=== PATIENT | female | born 1960 | race Caucasian/White ===

== ENCOUNTER 2016-09-14 11:17 | Emergency (ER) | payer BC, OTHER ==
[2016-09-14] MEDS ORDERED: SODIUM CHLORIDE 0.9% 1,000 ML IV STA (11:24)
[2016-09-14 11:27] VITALS: TEMP 98.1
--- NOTE | 2016-09-14 11:29 | ED ---
General Adult HPI - General Stated complaint: ETOH Time Seen by Provider: 09/14/16 11:17 Source: RN notes reviewed - History of Present Illness Initial comments: This is a 56-year-old female presents to the emergency department intoxicated. Patient states THAT she is having trouble going to sleep so she drank NyQuil throughout the night she eventually drank a whole bottle. Patient states it was a new bottle. Patient states today she feeling a little different hard to describe her feelings but she doesn't feel right so she called the ambulance. Patient denies any drug use. Patient denies any injury or trauma. Patient denies headache patient denies numbness weakness. Patient denies chest pain difficulty breathing or shortness of breath. Patient denies any abdominal pain. Patient denies any nausea vomiting or diarrhea. - Related Data Home Medications Medication Instructions Recorded Confirmed No Known Home Medications [No 09/14/16 09/14/16 Known Home Medications] Allergies Allergy/AdvReac Type Severity Reaction Status Date / Time shellfish derived [Shellfish] Allergy Dyspnea Verified 09/14/16 11:27 Sulfa (Sulfonamide Allergy Rash/Hives Verified 09/14/16 11:27 Antibiotics) Review of Systems ROS Statement: Those systems with pertinent positive or pertinent negative responses have been documented in the HPI. ROS Other: All systems not noted in ROS Statement are negative. Past Medical History Additional Past Medical History / Comment(s): chronic back pain, alcoholism History of Any Multi-Drug Resistant Organisms: None Reported Additional Past Surgical History / Comment(s): oral surgery Past Psychological History: Anxiety Smoking Status: Current every day smoker Past Alcohol Use History: Abuse, Daily, Heavy Past Drug Use History: None Reported General Exam - General Exam Comments Initial Comments: GENERAL: Patient is well-developed and well-nourished. Patient is nontoxic and well- hydrated and is in no acute distress. Patient appears intoxicated ENT: Neck is soft and supple. No significant lymphadenopathy is noted. Oropharynx is clear. Moist mucous membranes. Neck has full range of motion without eliciting any pain. EYES: The sclera were anicteric and conjunctiva were pink and moist. Extraocular movements were intact and pupils were equal round and reactive to light. Eyelids were unremarkable. PULMONARY: Unlabored respirations. Good breath sounds bilaterally. No audible rales rhonchi or wheezing was noted. CARDIOVASCULAR: There is a regular rate and rhythm without any murmurs gallops or rubs. ABDOMEN: Soft and nontender with normal bowel sounds. No palpable organomegaly was noted. There is no palpable pulsatile mass. SKIN: Skin is clear with no lesions or rashes and otherwise unremarkable. NEUROLOGIC: Patient is alert and oriented x3. Cranial nerves II through XII are grossly intact. Motor and sensory are also intact. Normal speech, volume and content. Symmetrical smile. MUSCULOSKELETAL: Normal extremities with adequate strength and full range of motion. No lower extremity swelling or edema. No calf tenderness. LYMPHATICS: No significant lymphadenopathy is noted PSYCHIATRIC: Normal psychiatric evaluation. Course Vital Signs 09/14/16 09/14/16 09/14/16 11:19 12:46 13:46 Temperature 98.1 F Pulse Rate 83 74 56 L Respiratory 18 18 18 Rate Blood Pressure 165/95 142/81 137/70 O2 Sat by Pulse 95 97 100 Oximetry Medical Decision Making - Medical Decision Making EKG shows normal sinus rhythm at 71 bpm [place] interval is 132 QRS is 96 QT interval 384 QTC is 417 patient's EKG shows no ST segment elevation or depression or T-wave abnormality is noted. Patient states she drank a bottle of NyQuil and we calculated out the Tylenol level patient had at most 5200 mg which is about half of the toxic amount needed for the treatment with Mucomyst. Patient also states she took that over a period of hours from last evening to today. Patient insisted all she took was NyQuil from a bottle and denied taking any acetaminophen or Tylenol. - Lab Data Result diagrams: 09/14/16 11:30 09/14/16 11:30 Lab Results 09/14/16 09/14/16 Range/Units 11:30 11:30 WBC 6.8 (3.8-10.6) k/uL RBC 4.44 (3.80-5.40) m/uL Hgb 14.7 (11.4-16.0) gm/dL Hct 42.7 (34.0-46.0) % MCV 96.3 (80.0-100.0) fL MCH 33.2 (25.0-35.0) pg MCHC 34.5 (31.0-37.0) g/dL RDW 13.4 (11.5-15.5) % Plt Count 207 (150-450) k/uL Neutrophils % 45 % Lymphocytes % 45 % Monocytes % 3 % Eosinophils % 3 % Basophils % 1 % Neutrophils # 3.1 (1.3-7.7) k/uL Lymphocytes # 3.0 (1.0-4.8) k/uL Monocytes # 0.2 (0-1.0) k/uL Eosinophils # 0.2 (0-0.7) k/uL Basophils # 0.1 (0-0.2) k/uL Sodium 139 (137-145) mmol/L Potassium 3.9 (3.5-5.1) mmol/L Chloride 103 (98-107) mmol/L Carbon Dioxide 18 L (22-30) mmol/L Anion Gap 18 mmol/L BUN 6 L (7-17) mg/dL Creatinine 0.55 (0.52-1.04) mg/dL Est GFR (MDRD) Af Amer >60 (>60 ml/min/1.73 sqM) Est GFR (MDRD) Non-Af >60 (>60 ml/min/1.73 sqM) Glucose 82 (74-99) mg/dL Calcium 8.3 L (8.4-10.2) mg/dL Total Bilirubin 0.7 (0.2-1.3) mg/dL AST 33 (14-36) U/L ALT 35 (9-52) U/L Alkaline Phosphatase 54 (38-126) U/L Total Protein 7.4 (6.3-8.2) g/dL Albumin 4.5 (3.5-5.0) g/dL Salicylates <1.0 mg/dL Acetaminophen 54.0 H* ug/mL Serum Alcohol 121 mg/dL Disposition Clinical Impression: Accidental acetaminophen overdose, Alcohol intoxication Disposition: HOME SELF-CARE Condition: Good Instructions: Alcohol Intoxication (ED) Additional Instructions: Take [id number] medicines and prescribed medicines only as prescribed or directed Time of Disposition: 13:51
[2016-09-14 11:51] LABS: Basophils # (A) 0.1 k/uL (0-0.2); Basophils % (A) 1 %; CH 33.8; CHCM 35.2; Eosinophils # (A) 0.2 k/uL (0-0.7); Eosinophils % (A) 3 %; HCT 42.7 % (34.0-46.0); HDW 2.35; HGB 14.7 gm/dL (11.4-16.0); Luc # (Auto) 0.17; Luc % (Auto) 3; Lymphocytes % (A) 45 %; MCH 33.2 pg (25.0-35.0); MCHC 34.5 g/dL (31.0-37.0); MCV 96.3 fL (80.0-100.0); Mean Platelet Volume 6.7; Monocytes # (A) 0.2 k/uL (0-1.0); Monocytes % (A) 3 %; Neutrophils # (A) 3.1 k/uL (1.3-7.7); Neutrophils % (A) 45 %; RBC 4.44 m/uL (3.80-5.40); RDW 13.4 % (11.5-15.5); WBC 6.8 k/uL (3.8-10.6)
[2016-09-14 11:58] LABS: ALT 35 U/L (9-52); AST 33 U/L (14-36); Alkaline Phosphatase 54 U/L (38-126); Anion Gap 18 mmol/L; Blood Urea Nitrogen 6 mg/dL (7-17); Calcium 8.3 mg/dL (8.4-10.2); Carbon Dioxide 18 mmol/L (22-30); Chloride 103 mmol/L (98-107); Glucose 82 mg/dL (74-99); Non-African American GFR(MDRD) >60 (>60 ml/min/1.73 sqM); Potassium 3.9 mmol/L (3.5-5.1); Salicylate <1.0 mg/dL; Sodium 139 mmol/L (137-145); Total Bilirubin 0.7 mg/dL (0.2-1.3); Total Protein 7.4 g/dL (6.3-8.2)
[2016-09-14 12:12] LABS: Alcohol 121 mg/dL
[2016-09-14 14:28] VITALS: BP 163/87; PULSE 75; RESP 16
== END 2016-09-14 14:23 | disposition home or self-care (01) ==
LOC: SUPCPDRO 11:17 → EC 11:17
DX: F10.129 Alcohol abuse with intoxication, unspecified (principal); T39.1X1A Poisoning by 4-Aminophenol derivatives, accidental (unintentional), initial encounter; F17.200 Nicotine dependence, unspecified, uncomplicated; Y90.6 Blood alcohol level of 120-199 mg/100 ml; Z88.2 Allergy status to sulfonamides; Z91.013 Allergy to seafood
CPT/HCPCS: 36415; 80053; 80320; 83520; 85025; 93005; 99284

== ENCOUNTER 2017-11-04 00:04 | Inpatient (IN) | payer BC, OTHER ==
[2017-11-04 00:15] VITALS: RESP 18
[2017-11-04] MEDS ORDERED: LORazepam 2 MG/ML INJ IV STA (00:34)
[2017-11-04] MEDS ORDERED: SODIUM CHLORIDE 0.9% 1,000 ML IV STA ×2 (00:34)
[2017-11-04] MEDS ORDERED: ONDANSETRON 4 MG/2 ML VIAL IVP STA (00:35)
--- NOTE | 2017-11-04 01:05 | ED ---
General Adult HPI - General Chief complaint: Seizure Stated complaint: seizure Time Seen by Provider: 11/04/17 00:07 Source: EMS, RN notes reviewed, old records reviewed Mode of arrival: EMS Limitations: no limitations - History of Present Illness Initial comments: This is a 57-year-old female the ER for evaluation of fever. Patient seizure prolonged postictal period. Patient has history of alcohol abuse. Recently 3 days ago. Drinking. She states she does feel jittery and tremorous. She has not had a fever, has not felt diaphoretic no nausea or vomiting. No prior history of seizures. She does go to mild alcohol withdrawal. Patient has been a significant heavy drinker so her life. She has not been taking her medications to help. She is not feeling she is having any delusions or hallucinations - Related Data Home Medications Medication Instructions Recorded Confirmed Fexofenadine/Pseudoephedrine 1 tab PO DAILY 11/04/17 11/04/17 [Katarzyna-D 12 Hour Tablet] Previous Rx's Medication Instructions Recorded Ciprofloxacin HCl [Cipro] 250 mg PO Q12HR #14 tablet 11/04/17 Thiamine [Vitamin B-1] 100 mg PO BID@1200,1700 tab 11/04/17 Allergies Allergy/AdvReac Type Severity Reaction Status Date / Time shellfish derived [Shellfish] Allergy Dyspnea Verified 11/04/17 08:04 Sulfa (Sulfonamide Allergy Rash/Hives Verified 11/04/17 08:04 Antibiotics) Review of Systems ROS Statement: Those systems with pertinent positive or pertinent negative responses have been documented in the HPI. ROS Other: All systems not noted in ROS Statement are negative. Past Medical History Additional Past Medical History / Comment(s): chronic back pain, alcoholism History of Any Multi-Drug Resistant Organisms: None Reported Additional Past Surgical History / Comment(s): oral surgery, colonoscopy x 2 Past Psychological History: Anxiety Smoking Status: Current every day smoker Past Alcohol Use History: Abuse, Daily, Heavy Past Drug Use History: None Reported - Past Family History Mother Family Medical History: Cancer General Exam Limitations: no limitations General appearance: alert, in no apparent distress, anxious Head exam: Present: atraumatic, normocephalic, normal inspection Eye exam: Present: normal appearance, PERRL, EOMI. Absent: scleral icterus, conjunctival injection, periorbital swelling ENT exam: Present: normal exam, mucous membranes moist Neck exam: Present: normal inspection. Absent: tenderness, meningismus, lymphadenopathy Respiratory exam: Present: normal lung sounds bilaterally. Absent: respiratory distress, wheezes, rales, rhonchi, stridor Cardiovascular Exam: Present: regular rate, normal rhythm, normal heart sounds. Absent: systolic murmur, diastolic murmur, rubs, gallop, clicks GI/Abdominal exam: Present: soft, normal bowel sounds. Absent: distended, tenderness, guarding, rebound, rigid Extremities exam: Present: normal inspection, full ROM, normal capillary refill. Absent: tenderness, pedal edema, joint swelling, calf tenderness Back exam: Present: normal inspection Neurological exam: Present: alert, oriented X3, CN II-XII intact Psychiatric exam: Present: normal affect, normal mood Skin exam: Present: warm, dry, intact, normal color. Absent: rash Course Vital Signs 11/04/17 11/04/17 11/04/17 00:07 01:53 03:20 Temperature 98.4 F 99.7 F H Pulse Rate 94 76 78 Respiratory 18 18 18 Rate Blood Pressure 150/90 157/80 147/92 O2 Sat by Pulse 97 99 97 Oximetry 11/04/17 04:22 Temperature 98.2 F Pulse Rate 74 Respiratory 18 Rate Blood Pressure 147/82 O2 Sat by Pulse 97 Oximetry - Reevaluation(s) Reevaluation #1: Patient showing decompensation in mental status and tremors, no delusions but is unsteady on her feet unsteady gait. No recurrent seizure EKG Findings - EKG Comments: EKG Findings:: EKG shows normal sinus rhythm rate of 82, CA 1:30, QRS 90, QTc 495 Medical Decision Making - Medical Decision Making 57 female the ER for evaluation, positive seizure secondary to alcohol withdrawal DTs. Patient to be admitted for monitoring hemodynamically as well as seizure which all protocol - Lab Data Result diagrams: 11/04/17 01:05 11/04/17 01:05 Lab Results 11/04/17 11/04/17 11/04/17 Range/Units 01:05 01:05 01:05 WBC 7.4 (3.8-10.6) k/uL RBC 4.06 (3.80-5.40) m/uL Hgb 13.6 (11.4-16.0) gm/dL Hct 41.6 (34.0-46.0) % MCV 102.5 H (80.0-100.0) fL MCH 33.5 (25.0-35.0) pg MCHC 32.7 (31.0-37.0) g/dL RDW 12.4 (11.5-15.5) % Plt Count 70 L (150-450) k/uL Neutrophils % 79 % Lymphocytes % 14 % Monocytes % 6 % Eosinophils % 1 % Basophils % 0 % Neutrophils # 5.8 (1.3-7.7) k/uL Lymphocytes # 1.0 (1.0-4.8) k/uL Monocytes # 0.4 (0-1.0) k/uL Eosinophils # 0.1 (0-0.7) k/uL Basophils # 0.0 (0-0.2) k/uL Sodium 133 L (137-145) mmol/L Potassium 3.6 (3.5-5.1) mmol/L Chloride 96 L (98-107) mmol/L Carbon Dioxide 27 (22-30) mmol/L Anion Gap 10 mmol/L BUN 9 (7-17) mg/dL Creatinine 0.50 L (0.52-1.04) mg/dL Est GFR (MDRD) Af Amer >60 (>60 ml/min/1.73 sqM) Est GFR (MDRD) Non-Af >60 (>60 ml/min/1.73 sqM) Glucose 128 H (74-99) mg/dL Calcium 9.6 (8.4-10.2) mg/dL Magnesium 1.3 L (1.6-2.3) mg/dL Total Bilirubin 0.6 (0.2-1.3) mg/dL AST 199 H (14-36) U/L ALT 161 H (9-52) U/L Alkaline Phosphatase 60 (38-126) U/L Total Protein 6.8 (6.3-8.2) g/dL Albumin 4.1 (3.5-5.0) g/dL Urine Color Urine Appearance (Clear) Urine pH (5.0-8.0) Ur Specific [place] (1.001-1.035) Urine Protein (Negative) Urine Glucose (UA) (Negative) Urine Ketones (Negative) Urine Blood (Negative) Urine Nitrite (Negative) Urine Bilirubin (Negative) Urine Urobilinogen (<2.0) mg/dL Ur Leukocyte Esterase (Negative) Urine RBC (0-5) /hpf Urine WBC (0-5) /hpf Ur Squamous Epith Cells (0-4) /hpf Hyaline Casts (0-2) /lpf Urine Mucus (None) /hpf Salicylates 3.0 mg/dL Urine Opiates Screen (NotDetected) Ur Oxycodone Screen (NotDetected) Urine Methadone Screen (NotDetected) Ur Propoxyphene Screen (NotDetected) Acetaminophen <10.0 ug/mL Ur Barbiturates Screen (NotDetected) U Tricyclic Antidepress (NotDetected) Ur Phencyclidine Scrn (NotDetected) Ur Amphetamines Screen (NotDetected) U Methamphetamines Scrn (NotDetected) U Benzodiazepines Scrn (NotDetected) Urine Cocaine Screen (NotDetected) U Marijuana (THC) Screen (NotDetected) Serum Alcohol <10 mg/dL 11/04/17 Range/Units 03:04 WBC (3.8-10.6) k/uL RBC (3.80-5.40) m/uL Hgb (11.4-16.0) gm/dL Hct (34.0-46.0) % MCV (80.0-100.0) fL MCH (25.0-35.0) pg MCHC (31.0-37.0) g/dL RDW (11.5-15.5) % Plt Count (150-450) k/uL Neutrophils % % Lymphocytes % % Monocytes % % Eosinophils % % Basophils % % Neutrophils # (1.3-7.7) k/uL Lymphocytes # (1.0-4.8) k/uL Monocytes # (0-1.0) k/uL Eosinophils # (0-0.7) k/uL Basophils # (0-0.2) k/uL Sodium (137-145) mmol/L Potassium (3.5-5.1) mmol/L Chloride (98-107) mmol/L Carbon Dioxide (22-30) mmol/L Anion Gap mmol/L BUN (7-17) mg/dL Creatinine (0.52-1.04) mg/dL Est GFR (MDRD) Af Amer (>60 ml/min/1.73 sqM) Est GFR (MDRD) Non-Af (>60 ml/min/1.73 sqM) Glucose (74-99) mg/dL Calcium (8.4-10.2) mg/dL Magnesium (1.6-2.3) mg/dL Total Bilirubin (0.2-1.3) mg/dL AST (14-36) U/L ALT (9-52) U/L Alkaline Phosphatase (38-126) U/L Total Protein (6.3-8.2) g/dL Albumin (3.5-5.0) g/dL Urine Color Yellow Urine Appearance Cloudy H (Clear) Urine pH 6.5 (5.0-8.0) Ur Specific [place] 1.010 (1.001-1.035) Urine Protein 1+ H (Negative) Urine Glucose (UA) Negative (Negative) Urine Ketones Negative (Negative) Urine Blood Negative (Negative) Urine Nitrite Negative (Negative) Urine Bilirubin Negative (Negative) Urine Urobilinogen <2.0 (<2.0) mg/dL Ur Leukocyte Esterase Large H (Negative) Urine RBC 3 (0-5) /hpf Urine WBC 46 H (0-5) /hpf Ur Squamous Epith Cells 2 (0-4) /hpf Hyaline Casts 4 H (0-2) /lpf Urine Mucus Occasional H (None) /hpf Salicylates mg/dL Urine Opiates Screen Detected H (NotDetected) Ur Oxycodone Screen Not Detected (NotDetected) Urine Methadone Screen Not Detected (NotDetected) Ur Propoxyphene Screen Not Detected (NotDetected) Acetaminophen ug/mL Ur Barbiturates Screen Not Detected (NotDetected) U Tricyclic Antidepress Not Detected (NotDetected) Ur Phencyclidine Scrn Not Detected (NotDetected) Ur Amphetamines Screen Not Detected (NotDetected) U Methamphetamines Scrn Not Detected (NotDetected) U Benzodiazepines Scrn Detected H (NotDetected) Urine Cocaine Screen Not Detected (NotDetected) U Marijuana (THC) Screen Not Detected (NotDetected) Serum Alcohol mg/dL - Radiology Data Radiology results: report reviewed (CT brain negative for acute disease), image reviewed Disposition Clinical Impression: New onset seizure, Alcohol withdrawal, DTs (delirium tremens) Disposition: ADMITTED IP TO THIS HOSP Condition: Fair
[2017-11-04 01:22] LABS: Basophils % (A) 0 %; Eosinophils # (A) 0.1 k/uL (0-0.7); Eosinophils % (A) 1 %; HCT 41.6 % (34.0-46.0); HGB 13.6 gm/dL (11.4-16.0); Lymphocytes % (A) 14 %; MCH 33.5 pg (25.0-35.0); MCHC 32.7 g/dL (31.0-37.0); MCV 102.5 fL (80.0-100.0); Mean Platelet Volume 8.7; Monocytes # (A) 0.4 k/uL (0-1.0); Monocytes % (A) 6 %; Neutrophils # (A) 5.8 k/uL (1.3-7.7); Neutrophils % (A) 79 %; RBC 4.06 m/uL (3.80-5.40); RDW 12.4 % (11.5-15.5); WBC 7.4 k/uL (3.8-10.6)
[2017-11-04 01:37] LABS: ALT 161 U/L (9-52); AST 199 U/L (14-36); Acetaminophen <10.0 ug/mL; Albumin 4.1 g/dL (3.5-5.0); Alcohol <10 mg/dL; Alkaline Phosphatase 60 U/L (38-126); Anion Gap 10 mmol/L; Blood Urea Nitrogen 9 mg/dL (7-17); Calcium 9.6 mg/dL (8.4-10.2); Carbon Dioxide 27 mmol/L (22-30); Chloride 96 mmol/L (98-107); Glucose 128 mg/dL (74-99); Potassium 3.6 mmol/L (3.5-5.1); Sodium 133 mmol/L (137-145); Total Bilirubin 0.6 mg/dL (0.2-1.3); Total Protein 6.8 g/dL (6.3-8.2)
[2017-11-04] MEDS ORDERED: MORPHINE SULFATE 4 MG/ML SYRINGE IVP STA (01:37)
--- NOTE | 2017-11-04 01:40 | CT ---
EXAMINATION TYPE: CT brain wo con DATE OF EXAM: 11/04/2017 COMPARISON: 01/04/2016 HISTORY: SEIZURE, etoh CT DLP: 995.50 mGycm Automated exposure control for dose reduction was used. FINDINGS: Ventricles of normal size. There is no mass effect nor midline shift. There is no sign of intracrania l hemorrhage. The calvarium is intact. IMPRESSION: NEGATIVE CT SCAN OF THE BRAIN. NO ADVERSE CHANGE.
[2017-11-04 01:41] LABS: Platelet Count 70 k/uL (150-450)
[2017-11-04 03:24] LABS: Appearance,Urine Cloudy (Clear); Bilirubin,Urine Negative (Negative); Blood,Urine Negative (Negative); Color,Urine Yellow; Glucose,Urine (UA) Negative (Negative); Hyaline Casts,Urine 4 /lpf (0-2); Ketones,Urine Negative (Negative); Leukocyte Esterase,Urine Large (Negative); Mucus,Urine Occasional /hpf; Nitrite,Urine Negative (Negative); PH, Urine 6.5 (5.0-8.0); Protein,Urine 1+ (Negative); RBC,Urine 3 /hpf (0-5); Squamous Epithelial Cell,Urine 2 /hpf (0-4); Urobilinogen,Urine <2.0 mg/dL (<2.0); WBC,Urine 46 /hpf (0-5)
[2017-11-04 03:57] LABS: Amphetamine Screen,Urine Not Detected (NotDetected); Barbiturate Screen,Urine Not Detected (NotDetected); Benzodiazepines Screen,Urine Detected (NotDetected); Cocaine Screen,Urine Not Detected (NotDetected); Methadone Screen, Urine Not Detected (NotDetected); Opiate Screen,Urine Detected (NotDetected); Oxycodone Screen, Urine Not Detected (NotDetected); Phencyclidine Screen,Urine Not Detected (NotDetected); Tricyclic Antidepressant,Urine Not Detected (NotDetected); Urn Cannabinoid Scrn Not Detected (NotDetected)
[2017-11-04] MEDS ORDERED: MAGNESIUM OXIDE 400 MG TAB PO STA (03:57)
[2017-11-04] MEDS ORDERED: cefTRIAXone IN SWFI 1,000 MG/10 ML SYRINGE IVP STA (03:57)
[2017-11-04] MEDS ORDERED: SODIUM CHLORIDE 0.9% 1,000 ML IV ONE (03:58)
[2017-11-04] MEDS ORDERED: DIAZEPAM 5 MG/ML 2 ML INJ IVP STA (03:58)
[2017-11-04] MEDS ORDERED: LORazepam 2 MG/ML INJ IV PRN ×3 (03:58)
[2017-11-04] MEDS ORDERED: THIAMINE 100 MG/ML 2 ML VIAL IM STA (03:58)
[2017-11-04] MEDS: MAGNESIUM SULFATE-D5W PMX 1 GM in DEXTROSE/WATER 1 100ML.BAG IVPB SCH ×2 (04:26→05:44)
[2017-11-04 07:26] VITALS: BP 134/76; PULSE 80; TEMP 99.4
[2017-11-04] MEDS ORDERED: ENOXAPARIN 40 MG/0.4 ML SYRINGE SQ SCH (09:00)
[2017-11-04] MEDS ORDERED: THIAMINE 100 MG TAB PO SCH (17:00)
--- NOTE | 2017-11-04 20:09 | HP ---
HISTORY AND PHYSICAL DATE OF SERVICE: 11/04/2017. CHIEF COMPLAINT: Possible seizures. BRIEF HISTORY: Patient is a 57-year-old female patient with history of alcohol abuse, presented to the ED with a complaint of fever and seizures. Patient claims that her last drink was about 6 days ago. But the day of admission, she became very jittery and tremulous and she does not have any history of seizure disorder and claims that according to her she was violently shaking, so he decided to bring her to the ER for detoxification. PAST MEDICAL HISTORY: Significant for chronic back pain and alcoholism. History of anxiety and tobacco abuse. PAST SURGICAL HISTORY: Significant for history of oral surgery, colonoscopy. PAST SOCIAL HISTORY: Patient has a long-standing history of daily heavy smoking and no IV drug abuse. FAMILY HISTORY: Unremarkable for coronary artery disease or CHF or diabetes. MEDICATIONS: The patient is not taking any medications at home. ALLERGIES: SHE IS ALLERGIC TO SHELLFISH, SULFA DRUGS. REVIEW OF SYSTEMS: Patient has no fever or chills. HEENT: No hearing or vision loss. Respiratory: No cough or chest congestion. Cardiovascular: No chest pain or palpitations. Abdomen/GI no nausea, vomiting, diarrhea. Genitourinary: No hematuria. No dysuria. Extremities: No swelling or redness of either extremities. Central nervous system: Seizures as per HPI. Skin is warm, no rashes or pigmentation. Hematological: No bleeding or coagulation disorders. Lymphatics: No lymph nodes are palpable. Hematological disorders: No polyuria or polydipsia. PHYSICAL EXAMINATION: Patient is resting comfortably in bed. She is in no acute distress. She is awake, alert, oriented x3. VITAL SIGNS: Temperature of 98.4, pulse 94, respiration 18, blood pressure 150/90, O2 saturation 97%. In general, patient is well developed, well nourished. HEENT: Atraumatic, normocephalic. Pupils equal and reactive to light. Extraocular movements intact. Buccal mucosa is fair. NECK: Supple. No goiter, lymphadenopathy. JVD is negative. No carotid bruit heard. Respiratory examination: Lungs are clear to auscultate. No rales, rhonchi, or wheezes. Cardiovascular examination: Heart is regular rate and rhythm without any murmurs, gallop rhythm. ABDOMEN/GI. Abdomen soft, nontender, nondistended. Bowel sounds positive. EXTREMITIES: No edema clubbing, cyanosis. Pulses are palpable. Neurological examination: Patient is awake, alert, oriented x3. Cranial nerves 2-12 grossly intact. PSYCHIATRIC EXAMINATION: The patient has normal affect and mood. Skin examination: Skin is warm, dry and intact. No rashes or pigmentation. LAB: CBC white blood count 7.4, hemoglobin 13.6, hematocrit 41.6, and platelet count of 70. Chemical profile: Sodium 138, potassium 3.6, chloride 96, bicarb 27, BUN 9, creatinine 0.5, glucose 128. EKG shows normal sinus rhythm. CT of the head was negative. The patient urine drug screen was positive for opiates and benzodiazepines. ASSESSMENT: 1. New onset seizures secondary to alcohol withdrawal. 2. Alcohol abuse with alcohol withdrawal. 3. Hyponatremia. 4. Polysubstance abuse. 5. Transaminitis secondary to ETOH abuse. 6. Tobacco abuse. PLAN: Admit the patient for observation. Start on IV fluids with banana bag and thiamine, folic acid. Monitor for the patient's seizure precautions. Start on CIWA protocol. Consult Learning Coordinator for outpatient resources. Further recommendations once patient is more stable. MMODL / IJN: [id number] /
[2017-11-05] MEDS ORDERED: cefTRIAXone IN SWFI 1,000 MG/10 ML SYRINGE IVP SCH (06:00)
--- NOTE | 2017-11-27 23:06 | DS ---
DISCHARGE SUMMARY ADMISSION DIAGNOSES: 1. New onset seizures, possibly secondary to alcohol withdrawal. 2. Alcohol abuse with withdrawal. 3. Hyponatremia. 4. Polysubstance abuse. 5. Transaminitis secondary to a ETOH abuse. 6. Tobacco abuse. BRIEF HISTORY: This was a 57-year-old female patient with alcohol abuse, presents to the ED with complaint of fever and seizure. The patient claims that her last drink was about 6 days ago, but on the day of admission, she became very jittery and tremulous and her decided to bring her to the ED. She has a history of chronic back pain and alcoholism. BRIEF HOSPITAL COURSE: The patient was admitted to observation, started on IV fluids with banana bag, thiamine and folic acid. The patient was put on seizure precautions. She was given CIWA protocol. Social service consult was done for outpatient resources. Once the patient was stable, the patient did respond very well to this treatment. She did not have any symptoms of withdrawal. She was awake and alert and all the workup was negative. Her CT of the head was negative for any bleed or any adverse changes. She did not have any complications. She was then discharged home with a plan to continue with current medications and followup with primary care physician. EXAMINATION: At discharge vital signs, temperature 99.2, pulse 98, respirations 18, blood pressure 101/86. HEENT: Atraumatic, normocephalic. Pupils equal and reactive to light. Extraocular movements intact. Buccal mucosa fair. NECK: Supple. No goiter or lymphadenopathy. JVD is negative. No carotid bruit heard. LUNGS: Clear to auscultate. No rales, rhonchi, or wheezes. HEART: Heart is regular rate and rhythm without any murmurs gallop rhythm. ABDOMEN: Soft, nontender. Bowel sounds positive. EXTREMITIES: No edema, clubbing cyanosis. DISCHARGE DIAGNOSES: 1. Seizures possibly secondary to alcohol withdrawal number. 2. Urinary tract infection. 3. Chronic alcohol abuse with possible withdrawal. DISCHARGE MEDICATIONS: 1. Cipro 250 mg every12 hours for 7 days. 2. Thiamine 100 mg daily. 3. Folic acid 1 mg daily. 4. Katarzyna D 1 tablet every 12 hours. The patient had detailed counseling done on cessation of drinking and tobacco. She remains stable, did not have any further complications. She was then discharged home in a stable condition. MMODL / IJN: [id number] /
== END 2017-11-04 15:01 | disposition home or self-care (01) | DRG 897 ==
LOC: EC 00:04 → 4MS4W 03:58
PROVIDERS: ADMIT Hospitalist; ATTEND Hospitalist
DX: F10.231 Alcohol dependence with withdrawal delirium (principal); R56.9 Unspecified convulsions; E87.1 Hypo-osmolality and hyponatremia; Y90.0 Blood alcohol level of less than 20 mg/100 ml; F17.200 Nicotine dependence, unspecified, uncomplicated; G89.29 Other chronic pain; F41.9 Anxiety disorder, unspecified; M54.9 Dorsalgia, unspecified; Z79.899 Other long term (current) drug therapy; Z91.013 Allergy to seafood; Z80.9 Family history of malignant neoplasm, unspecified; Z88.2 Allergy status to sulfonamides
CPT/HCPCS: 36415; 70450; 80053; 80306; 80320; 81001; 83520; 83735; 85025; 93005; 96361; 96372; 96374; 96375; 99285

== ENCOUNTER 2018-01-17 20:20 | Emergency (ER) | payer BC, OTHER ==
[2018-01-17] MEDS ORDERED: SODIUM CHLORIDE 0.9% 1,000 ML IV STA (21:01)
[2018-01-17] MEDS ORDERED: ONDANSETRON 4 MG/2 ML VIAL IVP STA (21:01)
[2018-01-17] MEDS ORDERED: DICYCLOMINE 20 MG TAB PO STA (21:03)
--- NOTE | 2018-01-17 21:16 | ED ---
GI Bleed HPI - General Chief complaint: GI Bleed Stated complaint: diarrhea/rectal bleeding Time Seen by Provider: 01/17/18 20:30 Source: patient, family, RN notes reviewed, old records reviewed Mode of arrival: ambulatory Limitations: no limitations - History of Present Illness Initial comments: 57-year-old female presents with chief complaint of multiple weeks of diarrhea. Over the past 3 days she's were she's had bloody stools or clots. Patient states this time related just hemorrhoids. She reports that when she does have pain is cramping and she is doubled over in pain. She states she's had no antibiotics. No history of sick contacts that she is aware. No travel history. No fever or chills. She rates her pain a 2 out of 10 at this time. But she reports that occasionally sharp and severe. Patient does have a history of severe alcoholism. - Related Data Home Medications Medication Instructions Recorded Confirmed Calcium Carbonate [Calcium] 600 mg PO DAILY 01/17/18 01/17/18 Magnesium(Unknown) 1 tab PO DAILY 01/17/18 01/17/18 Multivitamin with Iron 1 tab PO DAILY 01/17/18 01/17/18 [Multivitamins with Iron] Vitamin B Complex 1 cap PO DAILY 01/17/18 01/17/18 Vitamin D3(Unknown) 1 tab PO DAILY 01/17/18 01/17/18 Previous Rx's Medication Instructions Recorded Ciprofloxacin HCl [Cipro] 500 mg PO Q12HR 5 Days 01/18/18 Dicyclomine [Bentyl] 10 mg PO TID #20 capsule 01/18/18 Nystatin 100,000 Unit/gm Powd 1 applic TOPICAL BID #1 bottle 01/18/18 [Mycostatin Powder] Allergies Allergy/AdvReac Type Severity Reaction Status Date / Time shellfish derived [Shellfish] Allergy Dyspnea Verified 01/17/18 20:44 Sulfa (Sulfonamide Allergy Rash/Hives Verified 01/17/18 20:44 Antibiotics) Review of Systems ROS Statement: Those systems with pertinent positive or pertinent negative responses have been documented in the HPI. ROS Other: All systems not noted in ROS Statement are negative. Past Medical History Additional Past Medical History / Comment(s): chronic back pain, alcoholism History of Any Multi-Drug Resistant Organisms: None Reported Additional Past Surgical History / Comment(s): oral surgery, colonoscopy x 2 Past Anesthesia/Blood Transfusion Reactions: No Reported Reaction Past Psychological History: Anxiety Smoking Status: Current every day smoker Past Alcohol Use History: Abuse, Daily, Heavy Past Drug Use History: None Reported - Past Family History Mother Family Medical History: Cancer General Exam - General Exam Comments Initial Comments: 57-year-old female. Alert. No distress. Limitations: no limitations General appearance: alert, in no apparent distress Head exam: Present: atraumatic, normocephalic, normal inspection Eye exam: Present: normal appearance, PERRL, EOMI. Absent: scleral icterus, conjunctival injection, periorbital swelling ENT exam: Present: normal exam, mucous membranes moist Neck exam: Present: normal inspection. Absent: tenderness, meningismus, lymphadenopathy Respiratory exam: Present: normal lung sounds bilaterally. Absent: respiratory distress, wheezes, rales, rhonchi, stridor Cardiovascular Exam: Present: regular rate, normal rhythm, normal heart sounds. Absent: systolic murmur, diastolic murmur, rubs, gallop, clicks GI/Abdominal exam: Present: soft, normal bowel sounds. Absent: distended, tenderness, guarding, rebound, rigid Rectal exam: Present: normal rectal tone, heme (-) stool. Absent: normal inspection (diarrhea noted, and patient has raw and irritated skin around rectum. ) Extremities exam: Present: normal inspection, full ROM, normal capillary refill. Absent: tenderness, pedal edema, joint swelling, calf tenderness Back exam: Present: normal inspection Neurological exam: Present: alert, oriented X3, CN II-XII intact Psychiatric exam: Present: normal affect, normal mood Skin exam: Present: warm, dry, intact, normal color. Absent: rash Course Vital Signs 01/17/18 01/17/18 01/17/18 20:32 21:55 22:00 Temperature 97.8 F Pulse Rate 77 65 66 Respiratory 18 16 16 Rate Blood Pressure 123/83 115/67 94/51 O2 Sat by Pulse 96 97 100 Oximetry 01/17/18 01/18/18 01/18/18 23:00 00:30 01:10 Temperature 97.2 F L Pulse Rate 66 62 78 Respiratory 16 16 Rate Blood Pressure 96/51 115/70 129/69 O2 Sat by Pulse 100 98 100 Oximetry Medical Decision Making - Medical Decision Making Did you get your female presents with multiple weeks of diarrhea. And uncontrollable. She say said keeps her up at night. She is wearing depends. She does report she had some bloody stool the past three days. At this time fecal occult is negative. Given IV fluids and lab work obtain. White count is normal. Chemistry panels with a normal limits. She has no significant pain at this time. Discussed possibility of infectious causes for diarrhea. Will start the patient on Cipro for 5 days. We did get a stool culture. Patient C diff test is negative. Patient will be following up with primary care provider. Also will discharge her with bentyl. Discussed ETOH can be related to diarreha as well. - Lab Data Result diagrams: 01/17/18 21:01 01/17/18 21:01 Lab Results 01/17/18 01/17/18 01/17/18 Range/Units 21:01 21:01 21:01 WBC (3.8-10.6) k/uL RBC (3.80-5.40) m/uL Hgb (11.4-16.0) gm/dL Hct (34.0-46.0) % MCV (80.0-100.0) fL MCH (25.0-35.0) pg MCHC (31.0-37.0) g/dL RDW (11.5-15.5) % Plt Count (150-450) k/uL Neutrophils % % Lymphocytes % % Monocytes % % Eosinophils % % Basophils % % Neutrophils # (1.3-7.7) k/uL Lymphocytes # (1.0-4.8) k/uL Monocytes # (0-1.0) k/uL Eosinophils # (0-0.7) k/uL Basophils # (0-0.2) k/uL PT (9.0-12.0) sec INR (<1.2) APTT (22.0-30.0) sec Sodium 142 (137-145) mmol/L Potassium 4.2 (3.5-5.1) mmol/L Chloride 105 (98-107) mmol/L Carbon Dioxide 20 L (22-30) mmol/L Anion Gap 17 mmol/L BUN 4 L (7-17) mg/dL Creatinine 0.50 L (0.52-1.04) mg/dL Est GFR (CKD-EPI)AfAm >90 (>60 ml/min/1.73 sqM) Est GFR (CKD-EPI)NonAf >90 (>60 ml/min/1.73 sqM) Glucose 91 (74-99) mg/dL Plasma Lactic Acid Samuel 1.7 (0.7-2.0) mmol/L Calcium 9.5 (8.4-10.2) mg/dL Magnesium 1.8 (1.6-2.3) mg/dL Total Bilirubin 0.3 (0.2-1.3) mg/dL AST 36 (14-36) U/L ALT 21 (9-52) U/L Alkaline Phosphatase 55 (38-126) U/L Total Protein 7.2 (6.3-8.2) g/dL Albumin 4.6 (3.5-5.0) g/dL Amylase 54 (30-110) U/L Lipase 68 (23-300) U/L Stool Occult Blood (Negative) C. difficile (EIA) Intrp (Negative) Blood Type A Negative Blood Type Confirm Blood Type Recheck CABO Indicated Antibody Screen NEGATIVE Spec Expiration Date 01/20/2018230001/17/18 01/17/18 01/17/18 Range/Units 21:01 21:01 21:08 WBC 8.5 (3.8-10.6) k/uL RBC 4.64 (3.80-5.40) m/uL Hgb 15.0 (11.4-16.0) gm/dL Hct 43.9 (34.0-46.0) % MCV 94.6 (80.0-100.0) fL MCH 32.4 (25.0-35.0) pg MCHC 34.2 (31.0-37.0) g/dL RDW 13.2 (11.5-15.5) % Plt Count 238 (150-450) k/uL Neutrophils % 63 % Lymphocytes % 29 % Monocytes % 4 % Eosinophils % 2 % Basophils % 1 % Neutrophils # 5.3 (1.3-7.7) k/uL Lymphocytes # 2.5 (1.0-4.8) k/uL Monocytes # 0.4 (0-1.0) k/uL Eosinophils # 0.1 (0-0.7) k/uL Basophils # 0.1 (0-0.2) k/uL PT 11.0 (9.0-12.0) sec INR 1.1 (<1.2) APTT 25.6 (22.0-30.0) sec Sodium (137-145) mmol/L Potassium (3.5-5.1) mmol/L Chloride (98-107) mmol/L Carbon Dioxide (22-30) mmol/L Anion Gap mmol/L BUN (7-17) mg/dL Creatinine (0.52-1.04) mg/dL Est GFR (CKD-EPI)AfAm (>60 ml/min/1.73 sqM) Est GFR (CKD-EPI)NonAf (>60 ml/min/1.73 sqM) Glucose (74-99) mg/dL Plasma Lactic Acid Samuel (0.7-2.0) mmol/L Calcium (8.4-10.2) mg/dL Magnesium (1.6-2.3) mg/dL Total Bilirubin (0.2-1.3) mg/dL AST (14-36) U/L ALT (9-52) U/L Alkaline Phosphatase (38-126) U/L Total Protein (6.3-8.2) g/dL Albumin (3.5-5.0) g/dL Amylase (30-110) U/L Lipase (23-300) U/L Stool Occult Blood Negative (Negative) C. difficile (EIA) Intrp (Negative) Blood Type Blood Type Confirm Blood Type Recheck Antibody Screen Spec Expiration Date 01/17/18 01/17/18 Range/Units 22:15 23:46 WBC (3.8-10.6) k/uL RBC (3.80-5.40) m/uL Hgb (11.4-16.0) gm/dL Hct (34.0-46.0) % MCV (80.0-100.0) fL MCH (25.0-35.0) pg MCHC (31.0-37.0) g/dL RDW (11.5-15.5) % Plt Count (150-450) k/uL Neutrophils % % Lymphocytes % % Monocytes % % Eosinophils % % Basophils % % Neutrophils # (1.3-7.7) k/uL Lymphocytes # (1.0-4.8) k/uL Monocytes # (0-1.0) k/uL Eosinophils # (0-0.7) k/uL Basophils # (0-0.2) k/uL PT (9.0-12.0) sec INR (<1.2) APTT (22.0-30.0) sec Sodium (137-145) mmol/L Potassium (3.5-5.1) mmol/L Chloride (98-107) mmol/L Carbon Dioxide (22-30) mmol/L Anion Gap mmol/L BUN (7-17) mg/dL Creatinine (0.52-1.04) mg/dL Est GFR (CKD-EPI)AfAm (>60 ml/min/1.73 sqM) Est GFR (CKD-EPI)NonAf (>60 ml/min/1.73 sqM) Glucose (74-99) mg/dL Plasma Lactic Acid Samuel (0.7-2.0) mmol/L Calcium (8.4-10.2) mg/dL Magnesium (1.6-2.3) mg/dL Total Bilirubin (0.2-1.3) mg/dL AST (14-36) U/L ALT (9-52) U/L Alkaline Phosphatase (38-126) U/L Total Protein (6.3-8.2) g/dL Albumin (3.5-5.0) g/dL Amylase (30-110) U/L Lipase (23-300) U/L Stool Occult Blood (Negative) C. difficile (EIA) Intrp Negative (Negative) Blood Type Blood Type Confirm A Negative Blood Type Recheck Antibody Screen Spec Expiration Date - Radiology Data Radiology results: report reviewed KUB shows normal Bowel magali pattern. Disposition Clinical Impression: Diarrhea Disposition: HOME SELF-CARE Condition: Good Instructions: Acute Diarrhea (ED) Additional Instructions: Patient is to follow-up with primary care provider in the next 1-2 days. Return to emergency department if any alarming signs or symptoms occur. Prescriptions: Ciprofloxacin HCl [Cipro] 500 mg PO Q12HR 5 Days Dicyclomine [Bentyl] 10 mg PO TID #20 capsule Nystatin 100,000 Unit/gm Powd [Mycostatin Powder] 1 applic TOPICAL BID #1 bottle Is patient prescribed a controlled substance at d/c from ED?: No If prescribed controlled substance>3 days was MAPS reviewed?: No When asked, does pt state using other controlled substances?: No Referrals: Danny Ogden DO [Primary Care Provider] - 1-2 days Time of Disposition: 00:37
[2018-01-17 21:29] LABS: Basophils # (A) 0.1 k/uL (0-0.2); Basophils % (A) 1 %; Eosinophils # (A) 0.1 k/uL (0-0.7); Eosinophils % (A) 2 %; HCT 43.9 % (34.0-46.0); Lymphocytes # (A) 2.5 k/uL (1.0-4.8); Lymphocytes % (A) 29 %; MCH 32.4 pg (25.0-35.0); MCHC 34.2 g/dL (31.0-37.0); MCV 94.6 fL (80.0-100.0); Mean Platelet Volume 6.9; Monocytes # (A) 0.4 k/uL (0-1.0); Monocytes % (A) 4 %; Neutrophils # (A) 5.3 k/uL (1.3-7.7); Neutrophils % (A) 63 %; Platelet Count 238 k/uL (150-450); RBC 4.64 m/uL (3.80-5.40); RDW 13.2 % (11.5-15.5); WBC 8.5 k/uL (3.8-10.6)
[2018-01-17 21:38] LABS: INR 1.1 (<1.2); Partial Thromboplastin Time 25.6 sec (22.0-30.0)
[2018-01-17 21:48] LABS: ALT 21 U/L (9-52); AST 36 U/L (14-36); Albumin 4.6 g/dL (3.5-5.0); Alkaline Phosphatase 55 U/L (38-126); Amylase 54 U/L (30-110); Anion Gap 17 mmol/L; Blood Urea Nitrogen 4 mg/dL (7-17); Calcium 9.5 mg/dL (8.4-10.2); Carbon Dioxide 20 mmol/L (22-30); Chloride 105 mmol/L (98-107); Glucose 91 mg/dL (74-99); Lipase 68 U/L (23-300); Magnesium 1.8 mg/dL (1.6-2.3); Potassium 4.2 mmol/L (3.5-5.1); Sodium 142 mmol/L (137-145); Total Bilirubin 0.3 mg/dL (0.2-1.3); Total Protein 7.2 g/dL (6.3-8.2)
[2018-01-17 21:57] VITALS: RESP 16
--- NOTE | 2018-01-17 23:54 | XR ---
EXAMINATION TYPE: XR KUB DATE OF EXAM: 01/17/2018 COMPARISON: 07/18/2012 HISTORY: Abdominal pain TECHNIQUE: 2 views FINDINGS: Bowel gas pattern is normal. There is no sign of intestinal obstruction or pneumoperitoneum . Fecal pattern is normal. Lung bases are clear. There are no pathologic calcifications. IMPRESSION: Nonacute abdomen. No change.
[2018-01-18] MEDS ORDERED: SODIUM CHLORIDE 0.9% 1,000 ML IV ONE ×2 (00:06→00:17)
[2018-01-18 01:14] VITALS: BP 129/69; PULSE 78; TEMP 97.2
== END 2018-01-18 01:16 | disposition home or self-care (01) ==
LOC: EC 20:20
DX: R19.7 Diarrhea, unspecified (principal); F17.200 Nicotine dependence, unspecified, uncomplicated; Z79.899 Other long term (current) drug therapy; Z91.013 Allergy to seafood; Z88.2 Allergy status to sulfonamides
CPT/HCPCS: 99285; 96374; 96361; 36415; 86900; 86901; 80053; 82150; 83605; 83690; 83735; 85025; 85610; 85730; 86850; 82272; 87324; 87045; 87046; 74018; J2405

== ENCOUNTER → 2018-11-10 | Outpatient (CLI) | payer BC, OTHER ==
[2018-11-10 11:22] LABS: HCT 42.5 % (34.0-46.0); HGB 14.4 gm/dL (11.4-16.0); MCH 31.7 pg (25.0-35.0); MCHC 33.9 g/dL (31.0-37.0); MCV 93.7 fL (80.0-100.0); Mean Platelet Volume 8.1; Platelet Count 177 k/uL (150-450); RBC 4.54 m/uL (3.80-5.40); RDW 12.7 % (11.5-15.5); WBC 7.7 k/uL (3.8-10.6)
[2018-11-10 11:27] LABS: Appearance,Urine Clear (Clear); Bilirubin,Urine Negative (Negative); Blood,Urine Negative (Negative); Color,Urine Light Yellow; Glucose,Urine (UA) Negative (Negative); Ketones,Urine Negative (Negative); Leukocyte Esterase,Urine Trace (Negative); Nitrite,Urine Negative (Negative); Protein,Urine Negative (Negative); RBC,Urine 1 /hpf (0-5); Specific Gravity,Urine 1.013 (1.001-1.035); Squamous Epithelial Cell,Urine 1 /hpf (0-4); Urobilinogen,Urine <2.0 mg/dL (<2.0); WBC,Urine 1 /hpf (0-5)
[2018-11-10 11:29] LABS: ALT 36 U/L (9-52); AST 30 U/L (14-36); Albumin 4.2 g/dL (3.5-5.0); Alkaline Phosphatase 51 U/L (38-126); Anion Gap 7 mmol/L; Blood Urea Nitrogen 18 mg/dL (7-17); Calcium 9.3 mg/dL (8.4-10.2); Carbon Dioxide 27 mmol/L (22-30); Chloride 105 mmol/L (98-107); Cholesterol 186 mg/dL (<200); Glucose 94 mg/dL (74-99); HDL Cholesterol 56 mg/dL (40-60); LDL Cholesterol,Calculated 118 mg/dL (0-99); Magnesium 1.5 mg/dL (1.6-2.3); Sodium 139 mmol/L (137-145); Total Bilirubin 0.4 mg/dL (0.2-1.3); Total Protein 6.9 g/dL (6.3-8.2); Triglycerides 60 mg/dL (<150)
--- NOTE | 2018-11-10 21:13 | BD ---
EXAMINATION TYPE: Axial Bone Density DATE OF EXAM: 11/10/2018 COMPARISON: 09.15.2010 CLINICAL HISTORY: 58 YR OLD FEMALE....ICD-10 CODE: Z13.820 OSTEOPOROSIS SCREENING Height: 68 Weight: 175 FRAX RISK QUESTIONS: History of Fracture in Adulthood: YES Secondary Osteoporosis: YES 2. Hyperthyroidism: YES, A TEEN 3. Menopause before 45: AT 46 4Current Tobacco Use: YES RISK FACTORS HISTORY OF: HX OF FX TO TIB FIB > 50 YRS OLD, Family History of Osteoporosis: MOTHERS SIDE, Active: YES Postmenopausal woman: 46 NATURAL Lost more than 2 inches in height since high school: NOT QUITE MEDICATIONS: Additional Medications: VIT D AND CALCIUM, MULTIVITAMIN Additional History: NOTHING ADDITIONAL TO NOTE EXAM MEASUREMENTS: Bone mineral densitometry was performed using the [employer] Software System. Bone mineral density as measured about the Lumbar spine is: ----- L1-L4(G/cm2): 1.474 T Score Values are as follows: ----- L1: 2.0 ----- L2: 1.0 ----- L3: 3.2 ----- L4: 3.1 ----- L1-L4: 2.5 Bone mineral density has: Increased 2.9% SINCE...09.15.2010 Bone mineral density about the R hip (g/cm2): 1.055 Bone mineral density about the L hip (g/cm2): 1.051 T Score values are as follows: -----R Neck: -0.1 -----L Neck: -0.3 -----R Total: 0.4 -----L Total: 0.3 Bone mineral density has: Decreased -5.8% SINCE...09.15.2010 FRAX%s: THERE IS A 10.0% CHANCE FOR A MAJOR OSTEOPOROTIC FX AND A 0.5% FOR HIP FX....PROBABILITY O F FX IN 10 YRS TIME IMPRESSION: Normal (Values between +1 and -1 indicate normal bone mass). Consider repeating this study in 5 year s or sooner if there is some new clinical indication. NOTE: T-SCORE=SD OF THE YOUNG ADULT MEAN.
[2018-11-10 22:01] LABS: Hemoglobin A1C 5.4 % (4.0-6.0)
--- NOTE | 2018-11-13 09:33 | MM ---
Reason for exam: screening (asymptomatic). Last mammogram was performed 2 years and 9 months ago. History: Patient is postmenopausal and had first child at age 37. Family history of breast cancer in maternal aunt at age 60. Took hormonal contraceptives for 2 years. Physical Findings: A clinical breast exam by your physician is recommended on an annual basis and results should be correlated with mammographic findings. MG Screening Mammo w CAD Bilateral CC and MLO view(s) were taken. Prior study comparison: January 30, 2016, bilateral MG screening mammo w CAD. January 01, 2014, bilateral digital screening mammo w/CAD. The breast tissue is extremely dense which could obscure a lesion on mammography. Benign appearing bilateral calcifications. No suspicious abnormality. No significant changes when compared with prior studies. ASSESSMENT: Benign, BI-RAD 2 RECOMMENDATION: Routine screening mammogram of both breasts in 1 year.
== END | disposition home or self-care (01) ==
LOC: RADMAMWWP 09:42
PROVIDERS: ATTEND Family Medicine
DX: Z12.31 Encounter for screening mammogram for malignant neoplasm of breast (principal); Z13.820 Encounter for screening for osteoporosis; Z00.00 Encounter for general adult medical examination without abnormal findings; E66.3 Overweight
CPT/HCPCS: 77067; 77080; 80053; 80061; 81001; 82306; 83036; 83735; 84443; 85027

== ENCOUNTER 2018-12-20 08:46 | Day surgery (SDC) | payer BC, OTHER ==
[2018-12-19 11:08] VITALS: BMI 23.6
[~2018-12-20 08:46] MED LIST: LACTATED RINGERS 1,000 ML IV SCH; LIDOCAINE 1% 20 ML VIAL (10MG/ML) FOR IV START INTRADERMA PRN
[2018-12-20 09:07] VITALS: RESP 16; TEMP 98
[2018-12-20] MEDS ORDERED: PROPOFOL 10 MG/ML 20 ML VIAL IV ONE (09:45)
[2018-12-20] MEDS ORDERED: LIDOCAINE 1% INJ 10MG/ML (20 ML MDV) ONE (09:45)
--- NOTE | 2018-12-20 10:03 | P.PCN ---
Date of Procedure: 12/20/18 Procedure(s) Performed: BRIEF HISTORY: Patient is a 58-year-old pleasant female, scheduled for an elective colonoscopy as a part of value should of prior history of colon polyps. Last colonoscopy was 5 years ago. PROCEDURE PERFORMED: Colonoscopy. PREOPERATIVE DIAGNOSIS: History of colon polyps. IV sedation per Anesthesia. PROCEDURE: After informed consent was obtained, the patient, was brought into the endoscopy unit. IV sedation was administered by Anesthesia under continuous monitoring. Digital rectal examination was normal. Initially the Olympus CF-160 flexible video colonoscope was then inserted in the rectum, gradually advanced into the cecum without any difficulty. Careful examination was performed as the scope was gradually being withdrawn. Ileocecal valve and the appendiceal orifice were visualized and appeared normal. Prep was excellent. Mucosa of the cecum, ascending colon, transverse colon, descending colon, sigmoid colon, and rectum appeared normal. Retroflexion was performed in the rectum and no lesions were seen. The patient tolerated the procedure well. IMPRESSION: Normal-appearing colon from rectum to cecum with no evidence of colorectal neoplasia. RECOMMENDATIONS: Findings of this examination were discussed with the patient as well as her family. She was advised to have a repeat surveillance colonoscopy in 5 years from now because of the prior history of colon polyps.
[2018-12-20 10:19] VITALS: BP 118/72; PULSE 68
== END 2018-12-20 10:52 | disposition home or self-care (01) ==
LOC: ORWHC2ENDO 08:46
PROVIDERS: ATTEND Internal Medicine Gastroenterology
DX: Z12.11 Encounter for screening for malignant neoplasm of colon (principal); F17.210 Nicotine dependence, cigarettes, uncomplicated; M19.90 Unspecified osteoarthritis, unspecified site; Z86.010 Personal history of colon polyps; Z88.2 Allergy status to sulfonamides; Z79.899 Other long term (current) drug therapy; Z91.013 Allergy to seafood; Z91.048 Other nonmedicinal substance allergy status
CPT/HCPCS: J2001; J2704; G0105; 45378

== ENCOUNTER → 2019-01-04 | Outpatient (CLI) | payer BC, OTHER ==
--- NOTE | 2019-01-05 01:24 | MR ---
EXAMINATION TYPE: MR cervical spine wo con DATE OF EXAM: 01/04/2019 COMPARISON: None HISTORY: Headache, Cervicalgia TECHNIQUE: Multiplanar, multisequence images of the cervical spine were acquired. The cervical vertebra have normal alignment. There is small posterior cervical disc herniation at C3- 4 and C5-6. There is developmentally adequate spinal canal and no significant spinal stenosis. Cervic al spinal cord has normal signal pattern. There is no edema. The brain stem is intact. Skull base raquel ears intact. I see no focal bone destruction. There is no cervical paraspinal mass. IMPRESSION: There is small posterior right-sided C5-6 cervical disc herniation. There is small posterior C3-4 Ave tral disc herniation. No spinal stenosis. There is small posterior left side T2-T3 disc herniation wi thout impingement on the neural elements.
--- NOTE | 2019-01-05 01:36 | MR ---
EXAMINATION TYPE: MR brain wo/w con DATE OF EXAM: 01/04/2019 HISTORY: Headache, Cervicalgia COMPARISON: 04/21/2016 FINDINGS: ventricles of normal size. There is no mass effect nor midline shift. There is no sign of intracrania l hemorrhage. There is no significant cerebral atrophy. Brainstem is intact. Sella turcica appears no rmal. Corpus callosum is normal. Ramos-white matter structures have fairly normal signal pattern. Ther e is no evidence of cerebral edema. There is no evidence of cortical infarct. There is mild mucosal t hickening in the ethmoid sinuses. Contrast images show normal opacification of the venous sinuses. There is arterial flow in the anteri or middle and posterior cerebral arteries. There is arterial flow in the vertebrobasilar artery syste m. There is no mass effect. There is no evidence of neovascularity. There is no pathologic enhancemen t. TECHNIQUE: Multiplanar, multisequence images of the brain and brainstem is performed without and with IV contras t, utilizing 7.5 mL intravenous Gadavist . IMPRESSION: There is minimal ethmoid sinusitis unchanged. Otherwise negative MR scan of the brain. No change compared to old exam.
== END | disposition home or self-care (01) ==
LOC: RADMRIMAIN 16:28
PROVIDERS: ATTEND Psychiatry & Neurology Neurology
DX: J32.2 Chronic ethmoidal sinusitis (principal); M50.21 Other cervical disc displacement, high cervical region; Z88.2 Allergy status to sulfonamides
CPT/HCPCS: 70553; 72141; A9585

== ENCOUNTER 2019-09-28 20:07 | Observation (INO) | payer BC, OTHER ==
[2019-09-28] MEDS ORDERED: MORPHINE SULFATE 4 MG/ML SYRINGE IVP STA (21:34)
[2019-09-28 21:49] LABS: Basophils # (A) 0.1 k/uL (0-0.2); Basophils % (A) 1 %; Eosinophils % (A) 0 %; HCT 44.2 % (34.0-46.0); HGB 14.6 gm/dL (11.4-16.0); Lymphocytes # (A) 1.4 k/uL (1.0-4.8); Lymphocytes % (A) 13 %; MCH 31.7 pg (25.0-35.0); Mean Platelet Volume 7.7; Monocytes # (A) 0.3 k/uL (0-1.0); Monocytes % (A) 2 %; Neutrophils # (A) 8.9 k/uL (1.3-7.7); Neutrophils % (A) 84 %; Platelet Count 165 k/uL (150-450); RDW 12.6 % (11.5-15.5); WBC 10.7 k/uL (3.8-10.6)
--- NOTE | 2019-09-28 21:52 | CT ---
EXAMINATION TYPE: CT brain jagruti wo con DATE OF EXAM: 09/28/2019 COMPARISON: 01/04/2016 HISTORY: Fall. ETOH. CT DLP: 1437.5 mGycm Automated exposure control for dose reduction was used. Multiple axial sections were obtained of the brain without contrast. Multiple axial sections were obt ained from the skull base to T1 vertebra without contrast. FINDINGS: Cervical vertebra show normal alignment. There is intact facet joints. There is spurring of the endpl ates. Skull base is intact. Ventricles and sulci appear normal. There is no mass effect nor midline shift. There is no sign of in tracranial hemorrhage. Calvarium is intact. There is right frontal scalp soft tissue swelling. IMPRESSION: Right frontal scalp hematoma. No acute intracranial abnormality. Spondylotic hypertrophic degenerative changes in the cervical spine. No fracture.
[2019-09-28 21:54] LABS: ALT 52 U/L (4-34); AST 94 U/L (14-36); African American GFR (CKD) >90 (>60 ml/min/1.73 sqM); Albumin 4.5 g/dL (3.5-5.0); Alkaline Phosphatase 54 U/L (38-126); Anion Gap 15 mmol/L; Blood Urea Nitrogen 7 mg/dL (7-17); Calcium 8.6 mg/dL (8.4-10.2); Carbon Dioxide 23 mmol/L (22-30); Chloride 106 mmol/L (98-107); Glucose 84 mg/dL (74-99); Non-African American GFR(CKD) >90 (>60 ml/min/1.73 sqM); Potassium 4.1 mmol/L (3.5-5.1); Sodium 144 mmol/L (137-145); Total Bilirubin 0.5 mg/dL (0.2-1.3); Total Protein 7.2 g/dL (6.3-8.2)
[2019-09-28 22:02] LABS: INR 0.9 (<1.2); Prothrombin Time 9.9 sec (9.0-12.0)
[2019-09-28 22:12] LABS: Alcohol 322 mg/dL
--- NOTE | 2019-09-28 22:19 | ED ---
Fall HPI - General Source: patient, EMS Mode of arrival: EMS <Jason Gordon - Last Filed: 09/28/19 23:03> <Sherie Sorto - Last Filed: 10/03/19 15:28> - General Chief Complaint: Fall Stated Complaint: Fall Time Seen by Provider: 09/28/19 20:36 - History of Present Illness Initial Comments: Patient is a 59-year-old female with history of alcoholism presenting to emergency Department with chief complaint of a fall. Patient states she was drinking earlier today when she tripped and fell on floor in her house. States that she does not know whether she lost consciousness. She denies any nausea vomiting blurry vision. She states that her would not help on purpose and she was on the floor for about 5 hours. Patient states eventually he called EMS to bring her to the ED. Patient reports feeling weak in bilateral lower extremities and the left arm. Patient reports that she is not able to move the left upper extremity. She denies any numbness tingling on the bilateral lower extremities. Denies any chest pain shortness of breath or back pain. (Jason Gordon) - Related Data Home Medications Medication Instructions Recorded Confirmed Fexofenadine/Pseudoephedrine 1 tab PO DAILY 12/19/18 09/28/19 [Katarzyna-D 12 Hour Tablet] HYDROcodone/APAP 7.5-325MG [[place] 1 tab PO BID PRN 09/28/19 09/28/19 7.5-325] Allergies Allergy/AdvReac Type Severity Reaction Status Date / Time iodine Allergy Rash/Hives Verified 09/28/19 22:40 shellfish derived [Shellfish] Allergy Dyspnea Verified 09/28/19 22:40 Sulfa (Sulfonamide Allergy Rash/Hives Verified 09/28/19 22:40 Antibiotics) Review of Systems ROS Other: All systems not noted in ROS Statement are negative. <Jason Gordon - Last Filed: 09/28/19 23:03> ROS Other: All systems not noted in ROS Statement are negative. <Sherie Sorto - Last Filed: 10/03/19 15:28> ROS Statement: Those systems with pertinent positive or pertinent negative responses have been documented in the HPI. Past Medical History Past Medical History: Osteoarthritis (OA) Additional Past Medical History / Comment(s): chronic back pain, History of Any Multi-Drug Resistant Organisms: None Reported Past Surgical History: No Surgical Hx Reported Additional Past Surgical History / Comment(s): oral surgery, colonoscopy x 2 Past Anesthesia/Blood Transfusion Reactions: No Reported Reaction Past Psychological History: No Psychological Hx Reported Smoking Status: Current every day smoker Past Alcohol Use History: Abuse, Daily, Heavy Past Drug Use History: None Reported - Past Family History Mother Family Medical History: Cancer Additional Family Medical History / Comment(s): MELENOMA <Jason Gordon - Last Filed: 09/28/19 23:03> General Exam Limitations: no limitations General appearance: alert, in no apparent distress Head exam: Present: normocephalic, normal inspection. Absent: atraumatic (Abrasion on the right side of the forehead along with a hematoma.), other (Negative Gustafson sign, negative raccoon eyes, negative hemotympanum.) Eye exam: Present: normal appearance, PERRL, EOMI. Absent: conjunctival injection Pupils: Present: normal accommodation ENT exam: Present: normal exam, normal oropharynx, mucous membranes dry, TM's normal bilaterally, normal external ear exam Neck exam: Present: normal inspection, tenderness (Cervical tenderness), full ROM Respiratory exam: Present: normal lung sounds bilaterally. Absent: respiratory distress, wheezes Cardiovascular Exam: Present: regular rate, normal rhythm, normal heart sounds Extremities exam: Present: normal inspection, full ROM (Limited range of motion of the left upper extremity. Pain in the left shoulder region.), normal capillary refill, other (+2 ulnar and radial pulses bilaterally. +2 distalis pedis and posterior tibialis bilaterally. Strength 5/5 in bilateral lower extremity) Back exam: Present: normal inspection, full ROM. Absent: CVA tenderness (R), CVA tenderness (L) Neurological exam: Present: alert, oriented X3 Psychiatric exam: Present: normal affect, normal mood Skin exam: Present: warm, dry, intact, normal color <Jason Gordon Last Filed: 09/28/19 23:03> Course Vital Signs 09/28/19 09/28/19 20:09 23:28 Temperature 97.5 F L Pulse Rate 77 75 Respiratory 18 18 Rate Blood Pressure 132/79 135/60 O2 Sat by Pulse 97 97 Oximetry Medical Decision Making - Lab Data Result diagrams: 09/28/19 20:22 09/28/19 20:22 <Jason Gordon - Last Filed: 09/28/19 23:03> - Lab Data Result diagrams: 09/28/19 20:22 09/28/19 20:22 <Sherie Sorto - Last Filed: 10/03/19 15:28> - Medical Decision Making Patient is a 59-year-old female with history of alcoholism presenting to emergency Department with a chief complaint of a fall. On exam patient is an abrasion right side of face as well as a hematoma in the region. Patient also has some tenderness at the left shoulder. Strength 5/5 in bilateral lower extremities. Rest of physical examination is unremarkable. Patient neurovascularly intact. Brain and C-spine CT shows no signs of acute fractures, dislocations, intracranial hemorrhage. Patient is not on blood thinners. Blood alcohol is in the mid 300s. Patient will be admitted for alcohol intoxication. [place] assessed. Case discussed with physician. (Jason Gordon) I was available for consultation in the emergency department. The history and physical exam were done by the midlevel provider. I reviewed the imaging with the midlevel provider. The patient presents after a fall due to alcohol intoxication. History is difficult to obtain due to intoxicated status and no family at bedside. Based on the midlevels presentation of the patient, I agree with the assessment, medical decision making and plan of care as documented. I visualized the patient ambulate to the restroom unassisted. The patient has no obvious injuries from review of the imaging and therefore will be admitted to Dr. Rush who accepted the admission. Chart was dictated using [employer] dictation software. Attempts were made to correct any dictation errors however some typographical errors may persist. (Sherie Sorto) - Lab Data Lab Results 09/28/19 09/28/19 09/28/19 Range/Units 20:22 20: 20: WBC 10.7 H (3.8-10.6) k/uL RBC 4.60 (3.80-5.40) m/uL Hgb 14.6 (11.4-16.0) gm/dL Hct 44.2 (34.0-46.0) % MCV 96.0 (80.0-100.0) fL MCH 31.7 (25.0-35.0) pg MCHC 33.0 (31.0-37.0) g/dL RDW 12.6 (11.5-15.5) % Plt Count 165 (150-450) k/uL Neutrophils % 84 % Lymphocytes % 13 % Monocytes % 2 % Eosinophils % 0 % Basophils % 1 % Neutrophils # 8.9 H (1.3-7.7) k/uL Lymphocytes # 1.4 (1.0-4.8) k/uL Monocytes # 0.3 (0-1.0) k/uL Eosinophils # 0.0 (0-0.7) k/uL Basophils # 0.1 (0-0.2) k/uL PT 9.9 (9.0-12.0) sec INR 0.9 (<1.2) APTT 22.0 (22.0-30.0) sec Sodium 144 (137-145) mmol/L Potassium 4.1 (3.5-5.1) mmol/L Chloride 106 (98-107) mmol/L Carbon Dioxide 23 (22-30) mmol/L Anion Gap 15 mmol/L BUN 7 (7-17) mg/dL Creatinine 0.53 (0.52-1.04) mg/dL Est GFR (CKD-EPI)AfAm >90 (>60 ml/min/1.73 sqM) Est GFR (CKD-EPI)NonAf >90 (>60 ml/min/1.73 sqM) Glucose 84 (74-99) mg/dL Calcium 8.6 (8.4-10.2) mg/dL Total Bilirubin 0.5 (0.2-1.3) mg/dL AST 94 H (14-36) U/L ALT 52 H (4-34) U/L Alkaline Phosphatase 54 (38-126) U/L Total Protein 7.2 (6.3-8.2) g/dL Albumin 4.5 (3.5-5.0) g/dL Urine Color Urine Appearance (Clear) Urine pH (5.0-8.0) Ur Specific [place] (1.001-1.035) Urine Protein (Negative) Urine Glucose (UA) (Negative) Urine Ketones (Negative) Urine Blood (Negative) Urine Nitrite (Negative) Urine Bilirubin (Negative) Urine Urobilinogen (<2.0) mg/dL Ur Leukocyte Esterase (Negative) Urine RBC (0-5) /hpf Urine WBC (0-5) /hpf Ur Squamous Epith Cells (0-4) /hpf Urine Bacteria (None) /hpf Hyaline Casts (0-2) /lpf Urine Mucus (None) /hpf Serum Alcohol 322 H* mg/dL 09/28/19 Range/Units 21:30 WBC (3.8-10.6) k/uL RBC (3.80-5.40) m/uL Hgb (11.4-16.0) gm/dL Hct (34.0-46.0) % MCV (80.0-100.0) fL MCH (25.0-35.0) pg MCHC (31.0-37.0) g/dL RDW (11.5-15.5) % Plt Count (150-450) k/uL Neutrophils % % Lymphocytes % % Monocytes % % Eosinophils % % Basophils % % Neutrophils # (1.3-7.7) k/uL Lymphocytes # (1.0-4.8) k/uL Monocytes # (0-1.0) k/uL Eosinophils # (0-0.7) k/uL Basophils # (0-0.2) k/uL PT (9.0-12.0) sec INR (<1.2) APTT (22.0-30.0) sec Sodium (137-145) mmol/L Potassium (3.5-5.1) mmol/L Chloride (98-107) mmol/L Carbon Dioxide (22-30) mmol/L Anion Gap mmol/L BUN (7-17) mg/dL Creatinine (0.52-1.04) mg/dL Est GFR (CKD-EPI)AfAm (>60 ml/min/1.73 sqM) Est GFR (CKD-EPI)NonAf (>60 ml/min/1.73 sqM) Glucose (74-99) mg/dL Calcium (8.4-10.2) mg/dL Total Bilirubin (0.2-1.3) mg/dL AST (14-36) U/L ALT (4-34) U/L Alkaline Phosphatase (38-126) U/L Total Protein (6.3-8.2) g/dL Albumin (3.5-5.0) g/dL Urine Color Yellow Urine Appearance Cloudy H (Clear) Urine pH 5.5 (5.0-8.0) Ur Specific [place] 1.017 (1.001-1.035) Urine Protein 1+ H (Negative) Urine Glucose (UA) Negative (Negative) Urine Ketones 2+ H (Negative) Urine Blood Trace H (Negative) Urine Nitrite Negative (Negative) Urine Bilirubin Negative (Negative) Urine Urobilinogen <2.0 (<2.0) mg/dL Ur Leukocyte Esterase Small H (Negative) Urine RBC 1 (0-5) /hpf Urine WBC 3 (0-5) /hpf Ur Squamous Epith Cells 44 H (0-4) /hpf Urine Bacteria Many H (None) /hpf Hyaline Casts 4 H (0-2) /lpf Urine Mucus Rare H (None) /hpf Serum Alcohol mg/dL Disposition Is patient prescribed a controlled substance at d/c from ED?: No Time of Disposition: 23:05 <Jason Gordon - Last Filed: 09/28/19 23:03> <Sherie Sorto - Last Filed: 10/03/19 15:28> Clinical Impression: Alcohol intoxication, Fall Disposition: ADMITTED IP TO THIS HOSP
[2019-09-28 22:22] LABS: Appearance,Urine Cloudy (Clear); Bacteria,Urine Many /hpf; Bilirubin,Urine Negative (Negative); Blood,Urine Trace (Negative); Color,Urine Yellow; Glucose,Urine (UA) Negative (Negative); Hyaline Casts,Urine 4 /lpf (0-2); Ketones,Urine 2+ (Negative); Leukocyte Esterase,Urine Small (Negative); Mucus,Urine Rare /hpf; Nitrite,Urine Negative (Negative); PH, Urine 5.5 (5.0-8.0); Protein,Urine 1+ (Negative); RBC,Urine 1 /hpf (0-5); Specific Gravity,Urine 1.017 (1.001-1.035); Squamous Epithelial Cell,Urine 44 /hpf (0-4); Urobilinogen,Urine <2.0 mg/dL (<2.0); WBC,Urine 3 /hpf (0-5)
[2019-09-28] MEDS ORDERED: THIAMINE 100 MG/ML 2 ML VIAL IM STA (22:30)
[2019-09-28] MEDS ORDERED: LORazepam 2 MG/ML INJ IV PRN ×2 (22:30)
--- NOTE | 2019-09-28 22:36 | XR ---
EXAMINATION TYPE: XR shoulder limited LT DATE OF EXAM: 09/28/2019 COMPARISON: NONE HISTORY: Left shoulder pain TECHNIQUE: 2 views FINDINGS: I see no fracture nor dislocation. Glenohumeral joint is anatomic. There is some narrowing of the shoulder joint space. There are no pathologic calcifications. IMPRESSION: Shoulder joint space narrowing. No fracture seen.
[2019-09-28] MEDS: THIAMINE 100 MG TAB PO SCH (23:00)
[2019-09-28] MEDS ORDERED: NALOXONE 0.4 MG/ML 1 ML VIAL IV PRN (23:02)
[2019-09-28] MEDS: LORazepam 2 MG/ML INJ IV PRN (23:06)
[2019-09-29] MEDS: HYDROcodone/APAP 5-325MG 1 EACH TAB PO PRN ×4 (00:25→15:52)
[2019-09-29] MEDS: SODIUM CHLORIDE 0.9% 1,000 ML IV SCH ×2 (00:32→11:55)
[2019-09-29] MEDS: LORazepam 2 MG/ML INJ IV PRN ×3 (02:28→15:58)
[2019-09-29] MEDS: THIAMINE 100 MG TAB PO SCH (08:00)
[2019-09-29] MEDS ORDERED: INFLUENZA VACCINE (6 MOS+) 60 MCG/0.5 ML SYRINGE IM ONE (09:00)
[2019-09-29 09:01] VITALS: BP 144/78; PULSE 74; TEMP 98.4
[2019-09-29] MEDS: DIAZEPAM 5 MG TAB PO SCH ×2 (11:53→15:41)
--- NOTE | 2019-09-29 14:54 | P.CNOR ---
History of Present Illness - [facility] Consult date: 09/29/19 Consult reason: other History of present illness: Patient is a 59-year-old female who was brought to [facility] yesterday evening after falling in her home. Patient apparently was drinking quite a bit throughout the day, when she describes that she fell onto her floor at her home. She was unable to get up off the floor. She states that her was unable to get her off the floor. She states that she was on the floor for about 5 hours. EMS was contacted, she was brought to [facility]. She was seen in the emergency room by the providers around 8:30 PM on 09/29/2019 . Patient was determined to be intoxicated, her blood alcohol level was significantly elevated. Please see ER note for further description of the physical exam. A computed tomography scan of the head and neck was ordered due to her believing she hit her head during the fall. Initial computed tomography scan was negative for any acute bleeding or fracture. She was complaining of shoulder pain on the left side, x-rays were also ordered, negative for any acute fractures or dislocations. Patient was then admitted to the hospital for alcohol intoxication and recent fall. I was contacted by the nursing staff from regarding a stat consult from the internal medicine doctor at 12:36. After his assessment, he felt that this was a trauma admission and consults were placed for both our orthopedic team and general surgery. He expressed concerns of a neurologic problem and discussed transferring the patient to a tertiary care facility. He stated that for this to take place that my assessment from the orthopedic standpoint and other providers would need to be in first. Dr. Whyte spoke with the internal medicine doctor at 1 PM regarding this issue. He recommended emergent neurologic consult or transfer to a tertiary care facility for further evaluation and treatment. I was able to assess the patient at bedside, she was wearing a c-collar that was ordered by internal medicine. When asked of her previous medical history, she does state that she does see a pain management doctor who prescribed her [place] for her cervical spine and lumbar spine. She denies any previous surgery involving the cervical, thoracic, lumbar spine. She denies any previous surgery of the bilateral upper extremities or bilateral lower extremities. She notes discomfort on the bilateral upper extremities at this time, minimal tenderness involving the bilateral lower extremity is. She does note some increasing pain involving the cervical and thoracic spine. She admits to having a hard time urinating since being admitted to the hospital, she has not lost bowel or bladder function at this time. She admits to a pins and needles sensation involving the bilateral upper extremities in the bilateral lower extremities. She also admits to significant loss of function of the left upper extremity. She denies any bilateral foot and ankle pain, bilateral knee pain, bilateral hip pain. Patient states that prior to the fall yesterday she ambulates with no difficulties, she does not use any assistive devices. Review of Systems Constitutional: Reports as per HPI Past Medical History Past Medical History: Osteoarthritis (OA) Additional Past Medical History / Comment(s): chronic back pain, History of Any Multi-Drug Resistant Organisms: None Reported Past Surgical History: No Surgical Hx Reported Additional Past Surgical History / Comment(s): oral surgery, colonoscopy x 2 Past Anesthesia/Blood Transfusion Reactions: No Reported Reaction Past Psychological History: No Psychological Hx Reported Smoking Status: Current every day smoker Past Alcohol Use History: Abuse, Daily, Heavy Additional Past Alcohol Use History / Comment(s): STARTED SMOKING AT AGE 38 SMOKES 1/2 TO 3/4 PPD. PAST ALCOHOL ABUSE- QUIT JANUARY 2018 Past Drug Use History: None Reported - Past Family History Mother Family Medical History: Cancer Additional Family Medical History / Comment(s): MELENOMA Medications and Allergies Home Medications Medication Instructions Recorded Confirmed Type Fexofenadine/Pseudoephedrine 1 tab PO DAILY 12/19/18 09/28/19 History [Katarzyna-D 12 Hour Tablet] HYDROcodone/APAP 7.5-325MG [[place] 1 tab PO BID PRN 09/28/19 09/28/19 History 7.5-325] Allergies Allergy/AdvReac Type Severity Reaction Status Date / Time iodine Allergy Rash/Hives Verified 09/28/19 22:40 shellfish derived [Shellfish] Allergy Dyspnea Verified 09/28/19 22:40 Sulfa (Sulfonamide Allergy Rash/Hives Verified 09/28/19 22:40 Antibiotics) Physical Examination Orthopedic exam: Right upper extremity: No open lesions or sores visualized throughout the extremity, no soft tissue swelling or erythema Patient is able to actively extend and abduct the shoulder with minimal difficulty She is able to flex and extend the elbow and minimal difficulty, she is able to extend and flex the wrist with no difficulty I'm able to passively range the right upper extremity with little to no discomfort Her radial pulses 2+, there are vague sensory defects noted with light touch throughout areas of the right upper extremity. She describes them as a dull feeling Compartments are soft Left upper extremity: No open lesions or sores visualized throughout the extremity, no soft tissue swelling or erythema Patient is a very difficult time initiating active motion of the left upper extremity, at the wrist, elbow and shoulder She is able to minimally extend and flex the wrist, and also bending the elbow. She is unable to abduct or forward elevate of the shoulder Her sensation to light touch throughout the left upper extremity is significantly decreased when compared to the right side Her radial pulses 2+ Compartments are soft Bilateral lower extremities: There is a small abrasion noted on the right lower extremity near the knee, no significant areas of soft tissue swelling or erythema There is no effusion surrounding the bilateral knees Actively patient is able to flex both hips past 90, she is able to flex the knees past 90 and extend with minimal difficulty Plantar flexion, dorsiflexion, EHL, FHL are intact Sensation to light touch was intact throughout the bilateral extremities, she did note a diminished in soft tissue response involving the anterior and posterior upper leg The cast are soft bilaterally, no tenderness with palpation Dorsal pedis pulse was 2+ bilaterally Compartments are soft Cervical, thoracic, lumbar spine: Patient had generalized tenderness with palpation throughout the cervical and thoracic vertebrae and paravertebral muscles. I was unable to appreciate any step-off on exam. Minimal tenderness noted of the lumbar spine and p aravertebral muscles with palpation Results - Labs Labs: Abnormal Lab Results - Last 24 Hours (Table) 09/28/19 09/28/19 09/28/19 Range/Units 20:22 20:22 21:30 WBC 10.7 H (3.8-10.6) k/uL Neutrophils # 8.9 H (1.3-7.7) k/uL AST 94 H (14-36) U/L ALT 52 H (4-34) U/L Urine Appearance Cloudy H (Clear) Urine Protein 1+ H (Negative) Urine Ketones 2+ H (Negative) Urine Blood Trace H (Negative) Ur Leukocyte Esterase Small H (Negative) Ur Squamous Epith Cells 44 H (0-4) /hpf Urine Bacteria Many H (None) /hpf Hyaline Casts 4 H (0-2) /lpf Urine Mucus Rare H (None) /hpf Serum Alcohol 322 H* mg/dL H & H 09/28/19 Range/Units 20:22 Hgb 14.6 (11.4-16.0) gm/dL Hct 44.2 (34.0-46.0) % Coagulation 09/28/19 Range/Units 20:22 INR 0.9 (<1.2) Result Diagrams: 09/28/19 20:22 09/28/19 20:22 Assessment and Plan Plan: Imaging: X-rays and report were reviewed of the left shoulder. No obvious acute fractures or dislocations were present. Head and neck computed tomography scan reportedly demonstrated no acute fractures or bleeds Assessment: 1. Diffuse neurological deficits left upper extremity, bilateral lower extremity 2. Urinating difficulties 3. Status post fall with prolonged immobilization 4. Alcohol intoxication Plan: I was able to discuss the case, including the physical exam findings and imaging studies my attending Dr. Whyte. Recommend emergent neurological evaluation or immediate transfer to tertiary care facility for further workup and evalua tion No orthopedic surgical intervention warranted at this time Time with Patient: Greater than 30
--- NOTE | 2019-09-29 15:24 | P.GSCN ---
History of Present Illness Consult date: 09/29/19 History of present illness: The patient was admitted after falling at home. Her reportedly left her on the floor for multiple hours prior to coming into the emergency room. I was called for urgent consult today due to acute lower extremity weakness Past Medical History Past Medical History: Osteoarthritis (OA) Additional Past Medical History / Comment(s): chronic back pain, History of Any Multi-Drug Resistant Organisms: None Reported Past Surgical History: No Surgical Hx Reported Additional Past Surgical History / Comment(s): oral surgery, colonoscopy x 2 Past Anesthesia/Blood Transfusion Reactions: No Reported Reaction Past Psychological History: No Psychological Hx Reported Smoking Status: Current every day smoker Past Alcohol Use History: Abuse, Daily, Heavy Additional Past Alcohol Use History / Comment(s): STARTED SMOKING AT AGE 38 SMOKES 1/2 TO 3/4 PPD. PAST ALCOHOL ABUSE- QUIT JANUARY 2018 Past Drug Use History: None Reported - Past Family History Mother Family Medical History: Cancer Additional Family Medical History / Comment(s): MELENOMA Medications and Allergies Home Medications Medication Instructions Recorded Confirmed Type Fexofenadine/Pseudoephedrine 1 tab PO DAILY 12/19/18 09/28/19 History [Katarzyna-D 12 Hour Tablet] HYDROcodone/APAP 7.5-325MG [[place] 1 tab PO BID PRN 09/28/19 09/28/19 History 7.5-325] Allergies Allergy/AdvReac Type Severity Reaction Status Date / Time iodine Allergy Rash/Hives Verified 09/28/19 22:40 shellfish derived [Shellfish] Allergy Dyspnea Verified 09/28/19 22:40 Sulfa (Sulfonamide Allergy Rash/Hives Verified 09/28/19 22:40 Antibiotics) Surgical - Exam Osteopathic Statement: *. No significant issues noted on an osteopathic structural exam other than those noted in the History and Physical/Consult. Vital Signs Temp Pulse Resp BP Pulse Ox 97.5 F L 77 18 132/79 97 09/28/19 20:09 09/28/19 20:09 09/28/19 20:09 09/28/19 20:09 09/28/19 20:09 Results - Labs 09/28/19 20:22 09/28/19 20:22 Abnormal Lab Results - Last 24 Hours (Table) 09/28/19 09/28/19 09/28/19 Range/Units 20:22 20:22 21:30 WBC 10.7 H (3.8-10.6) k/uL Neutrophils # 8.9 H (1.3-7.7) k/uL AST 94 H (14-36) U/L ALT 52 H (4-34) U/L Urine Appearance Cloudy H (Clear) Urine Protein 1+ H (Negative) Urine Ketones 2+ H (Negative) Urine Blood Trace H (Negative) Ur Leukocyte Esterase Small H (Negative) Ur Squamous Epith Cells 44 H (0-4) /hpf Urine Bacteria Many H (None) /hpf Hyaline Casts 4 H (0-2) /lpf Urine Mucus Rare H (None) /hpf Serum Alcohol 322 H* mg/dL Diabetes panel 09/28/19 Range/Units 20:22 Sodium 144 (137-145) mmol/L Potassium 4.1 (3.5-5.1) mmol/L Chloride 106 (98-107) mmol/L Carbon Dioxide 23 (22-30) mmol/L BUN 7 (7-17) mg/dL Creatinine 0.53 (0.52-1.04) mg/dL Glucose 84 (74-99) mg/dL Calcium 8.6 (8.4-10.2) mg/dL AST 94 H (14-36) U/L ALT 52 H (4-34) U/L Alkaline Phosphatase 54 (38-126) U/L Total Protein 7.2 (6.3-8.2) g/dL Albumin 4.5 (3.5-5.0) g/dL Calcium panel 09/28/19 Range/Units 20:22 Calcium 8.6 (8.4-10.2) mg/dL Albumin 4.5 (3.5-5.0) g/dL Pituitary panel 09/28/19 Range/Units 20:22 Sodium 144 (137-145) mmol/L Potassium 4.1 (3.5-5.1) mmol/L Chloride 106 (98-107) mmol/L Carbon Dioxide 23 (22-30) mmol/L BUN 7 (7-17) mg/dL Creatinine 0.53 (0.52-1.04) mg/dL Glucose 84 (74-99) mg/dL Calcium 8.6 (8.4-10.2) mg/dL Adrenal panel 09/28/19 Range/Units 20:22 Sodium 144 (137-145) mmol/L Potassium 4.1 (3.5-5.1) mmol/L Chloride 106 (98-107) mmol/L Carbon Dioxide 23 (22-30) mmol/L BUN 7 (7-17) mg/dL Creatinine 0.53 (0.52-1.04) mg/dL Glucose 84 (74-99) mg/dL Calcium 8.6 (8.4-10.2) mg/dL Total Bilirubin 0.5 (0.2-1.3) mg/dL AST 94 H (14-36) U/L ALT 52 H (4-34) U/L Alkaline Phosphatase 54 (38-126) U/L Total Protein 7.2 (6.3-8.2) g/dL Albumin 4.5 (3.5-5.0) g/dL Assessment and Plan (1) Lower extremity weakness Current Visit: Yes Status: Acute Code(s): R29.898 - OTH SYMPTOMS AND SIGNS INVOLVING THE MUSCULOSKELETAL SYSTEM SNOMED Code(s): 916363211 (2) Alcohol intoxication Current Visit: Yes Status: Acute Code(s): F10.929 - ALCOHOL USE, UNSPECIFIED WITH INTOXICATION, UNSPECIFIED SNOMED Code(s): 80311466 (3) Fall Current Visit: Yes Status: Acute Code(s): W19.XXXA - UNSPECIFIED FALL, INITIAL ENCOUNTER SNOMED Code(s): 0989443 Plan: the chart was reviewed. The patient was not evaluated by surgery yesterday and was not notified of her admission. She was admitted to medicine. Due to the neurologic status needs to be urgently transferred to a tertiary care facilitytherefore I did not see the patient as there is nothing that can be added from a general surgery standpoint.
[2019-09-29 16:05] VITALS: RESP 16
[2019-09-29] MEDS ORDERED: ENOXAPARIN 40 MG/0.4 ML SYRINGE SQ SCH (16:15)
--- NOTE | 2019-09-29 16:15 | P.HPIM ---
History of Present Illness H&P Date: 09/29/19 Chief Complaint: fall History of presenting complaint: ([employer] Login has been down since this morning. I did contact IT.) This is a 59-year-old patient of Dr. Ogden. Relevant unremarkable medical history except for osteoarthritis. Patient does drink alcohol quite often with no particular pattern. Often drinking alcohol in spurts.. Patient states she again drank alcohol yesterday. Normally drinks about half a pint of whiskey. He she's not sure what happened and she fell down and passed out. She remembers waking up but not able to get up. She apparently was on the floor for about 4 hours as told by her . EMS came and brought her to the ER. Alcohol level was 322 in the ER. I was called with the diagnosis of alcohol intoxication. When I saw the patient this morning, she was complaining of weakness in the left arm and the lower extremity. Otherwise normally able she able to get around. Computed tomography scan of the ER of the neck and CT brain was both unremarkable. No fracture reported. Patient was noted not to be confused. Patient was on a CIWA scale. Patient denies any headache. Denied changes in vision. Has a bruising on the right forehead. No fluid leak from the nose or the ear. Review of systems: GEN.: None EYES: None HEENT: None NECK: None RESPIRATORY: None CARDIOVASCULAR: None GASTROINTESTINAL: None GENITOURINARY: None MUSCULOSKELETAL: Occasional arthritic pain in some joints] LYMPHATICS: None HEMATOLOGICAL: None PSYCHIATRY: None NEUROLOGICAL: As above Past medical history: Osteoarthritis, chronic low back pain, some chronic neck pain Social history: Smokes anywhere from half to three-quarter pack a day from the age of 38. Alcohol intake variable in spurts often increased amounts. Lives with her Physical examination: VITAL SIGNS: 97.5, 77, 18, 132/79, 97% room air GENERAL: BMI 25.1, laying in bed awake. EYES: Pupils equal. Conjunctiva normal. HEENT: External appearance of nose and ears normal, oral cavity grossly normal. Bruising on the right forehead NECK: JVD not raised; masses not palpable. HEART: First and second heart sounds are normal; no edema. LUNGS: Respiratory rate normal; slightly decreased breath sounds. ABDOMEN: Soft, nontender, liver spleen not palpable, no masses palpable. PSYCH: [Alert and oriented x3; mood and affect slightly anxious. NEUROLOGICAL: [Cranial nerves grossly intact; no facial asymmetry, power in the left arm 1/5, altered sensation, reflexes equally vocal, lower extremity bilateral able to raise the legs to about 60, both knee reflexes hyperreflexic, questionable upgoing plantar, some decreased sensation in lower extremity. Patient has some discoordination of the right upper extremity LYMPHATICS: No lymph nodes palpable in the axilla and neck INVESTIGATIONS, reviewed in the clinical context: White count 10.7 hemoglobin 14.6 platelets 165 potassium 4.1 bun 7 creatinine 0.53 AST-94 ALT-52 Serum alcohol 322 Left shoulders x-ray, computed tomography scan brain and spine without contrast- negative for fracture Assessment: -Acute alcohol intoxication with level of 322 on admission. -Acute neurological deficit, left arm weakness and decreased sensation and some weakness of lower extremity with some altered sensation. Patient has no fracture reported on the computed tomography scan of the spine, computed tomography scan of the brain is reported negative. This could be from a spinal cord concussion given that there is no fracture reported. Probably at the cervical level. I will get a stat orthopedic consultation in view of the presentation to see any further input and get a opinion on the computed tomography scan spine. Plan: A stat consultation being made to advanced orthopedics on-call. Told the nurse Cindy that I will speak to the [employer] on-call regarding the case. Also spoke to the supportive employment case manager to contact [facility] for transfer for higher level of care and we don't have neurosurgery care here. Also ordered a cervical collar and a board. Nurse called the ER and was informed that nowadays boards are not used and patient was simply to rest on the bed. Also will consult Dr. Bradley on- call for trauma. Neuro checks every hourly will be done. Past Medical History Past Medical History: Osteoarthritis (OA) Additional Past Medical History / Comment(s): chronic back pain, History of Any Multi-Drug Resistant Organisms: None Reported Past Surgical History: No Surgical Hx Reported Additional Past Surgical History / Comment(s): oral surgery, colonoscopy x 2 Past Anesthesia/Blood Transfusion Reactions: No Reported Reaction Past Psychological History: No Psychological Hx Reported Smoking Status: Current every day smoker Past Alcohol Use History: Abuse, Daily, Heavy Additional Past Alcohol Use History / Comment(s): STARTED SMOKING AT AGE 38 SMOKES 1/2 TO 3/4 PPD. PAST ALCOHOL ABUSE- QUIT JANUARY 2018 Past Drug Use History: None Reported - Past Family History Mother Family Medical History: Cancer Additional Family Medical History / Comment(s): MELENOMA Medications and Allergies Home Medications Medication Instructions Recorded Confirmed Type Fexofenadine/Pseudoephedrine 1 tab PO DAILY 12/19/18 09/28/19 History [Katarzyna-D 12 Hour Tablet] HYDROcodone/APAP 7.5-325MG [[place] 1 tab PO BID PRN 09/28/19 09/28/19 History 7.5-325] Allergies Allergy/AdvReac Type Severity Reaction Status Date / Time iodine Allergy Rash/Hives Verified 09/28/19 22:40 shellfish derived [Shellfish] Allergy Dyspnea Verified 09/28/19 22:40 Sulfa (Sulfonamide Allergy Rash/Hives Verified 09/28/19 22:40 Antibiotics) Physical Exam Vitals: Vital Signs Temp Pulse Pulse Resp BP BP Pulse Ox 09/29/19 08:00 18 09/29/19 07:00 98.4 F 74 16 144/78 99 09/28/19 23:45 98.2 F 75 18 142/81 97 09/28/19 23:28 75 18 135/60 97 09/28/19 20:09 97.5 F L 77 18 132/79 97 Intake and Output 09/28/19 09/29/19 09/29/19 22:59 06:59 14:59 Other: Voiding Method Bedpan Weight 77.111 kg 77.111 kg Results CBC & Chem 7: 09/28/19 20:22 09/28/19 20:22 Labs: Abnormal Lab Results - Last 24 Hours (Table) 09/28/19 09/28/19 09/28/19 Range/Units 20:22 20:22 21:30 WBC 10.7 H (3.8-10.6) k/uL Neutrophils # 8.9 H (1.3-7.7) k/uL AST 94 H (14-36) U/L ALT 52 H (4-34) U/L Urine Appearance Cloudy H (Clear) Urine Protein 1+ H (Negative) Urine Ketones 2+ H (Negative) Urine Blood Trace H (Negative) Ur Leukocyte Esterase Small H (Negative) Ur Squamous Epith Cells 44 H (0-4) /hpf Urine Bacteria Many H (None) /hpf Hyaline Casts 4 H (0-2) /lpf Urine Mucus Rare H (None) /hpf Serum Alcohol 322 H* mg/dL Thrombosis Risk Factor Assmnt - Choose All That Apply Each Factor Represents 1 point: Age 41-60 years Thrombosis Risk Factor Assessment Total Risk Factor Score: 1 Thrombosis Risk Factor Assessment Level: Low Risk
--- NOTE | 2019-09-30 23:02 | P.DS ---
Providers Date of admission: 09/28/19 22:34 Expected date of discharge: 09/29/19 Attending physician: Oswaldo Rush Consults: 09/29/19 12:33 Consult Physician Stat Consulting Provider: Sourav Whyte Consult Reason/Comments: FALL ORTHO TRAUMA CONCERN Do you want consulting provider notified?: Yes 09/29/19 12:46 Consult Physician Stat Consulting Provider: Ivory Bradley Consult Reason/Comments: FALL TRAUMA Do you want consulting provider notified?: Yes [facility]: Chief Complaint: fall Hospital course: ([email or web address] Login has been down since this morning. I did contact IT.) This is a 59-year-old patient of Dr. Ogden. Relevant unremarkable medical history except for osteoarthritis. Patient does drink alcohol quite often with no particular pattern. Often drinking alcohol in spurts.. Patient states she again drank alcohol yesterday. Normally drinks about half a pint of whiskey. He she's not sure what happened and she fell down and passed out. She remembers waking up but not able to get up. She apparently was on the floor for about 4 hours as told by her . EMS came and brought her to the ER. Alcohol level was 322 in the ER. I was called with the diagnosis of alcohol intoxication. When I saw the patient this morning, she was complaining of weakness in the left arm and the lower extremity. These deficits were noted in the ER. Otherwise normally able she able to get around. Computed tomography scan of the ER of the neck and CT brain was both unremarkable. No fracture reported. Patient was noted not to be confused. Patient was on a CIWA scale. Patient denies any headache. Denied changes in vision. Has a bruising on the right forehead. No fluid leak from the nose or the ear. After I saw the patient and determined to neurological weakness in the left arm and hyperreflexia with lower extremity I ordered a consultation with orthopedics on- call and general surgery trauma on-call. Ordered a c-collar. Contacted surgical team from [facility] and arranged transfer after discussing with them. Discussion and discharge planning more than 35 minutes Consultation: Dr. Hurst from orthopedics Dr. Bradley from general surgery Physical examination: VITAL SIGNS: 98.4, 74, 16, 144/78, 99% room air GENERAL: BMI 25.1, laying in bed awake. EYES: Pupils equal. Conjunctiva normal. HEENT: External appearance of nose and ears normal, oral cavity grossly normal. Bruising on the right forehead NECK: JVD not raised; masses not palpable. HEART: First and second heart sounds are normal; no edema. LUNGS: Respiratory rate normal; slightly decreased breath sounds. ABDOMEN: Soft, nontender, liver spleen not palpable, no masses palpable. PSYCH: [Alert and oriented x3; mood and affect slightly anxious. NEUROLOGICAL: [Cranial nerves grossly intact; no facial asymmetry, power in the left arm 1/5, altered sensation, reflexes equally vocal, lower extremity bilateral able to raise the legs to about 60, both knee reflexes hyperreflexic, questionable upgoing plantar, some decreased sensation in lower extremity. Patient has some discoordination of the right upper extremity INVESTIGATIONS, reviewed in the clinical context: White count 10.7 hemoglobin 14.6 platelets 165 potassium 4.1 bun 7 creatinine 0.53 AST-94 ALT-52 Serum alcohol 322 Left shoulders x-ray, computed tomography scan brain and spine without contrast- negative for fracture Assessment: -Acute alcohol intoxication with level of 322 on admission. -Acute neurological deficit, left arm weakness and decreased sensation and some weakness of lower extremity with some altered sensation. Patient has no fracture reported on the computed tomography scan of the spine, computed tomography scan of the brain is reported negative. This could be from a spinal cord concussion given that there is no fracture reported. Probably at the cervical level. Plan: Transferred to [facility] for higher level of care. We do not have r neurosurgical services available here. Patient was accepted. Plan - Discharge Summary Discharge Rx Participant: No New Discharge Prescriptions: No Action Fexofenadine/Pseudoephedrine [Katarzyna-D 12 Hour Tablet] 1 tab PO DAILY HYDROcodone/APAP 7.5-325MG [[place] 7.5-325] 1 tab PO BID PRN PRN Reason: Pain Discharge Medication List Fexofenadine/Pseudoephedrine [Katarzyna-D 12 Hour Tablet] 1 tab PO DAILY 12/19/18 [History] HYDROcodone/APAP 7.5-325MG [[place] 7.5-325] 1 tab PO BID PRN 09/28/19 [History] Follow up Appointment(s)/Referral(s): Danny Ogden DO [Primary Care Provider] - 1-2 days Activity/Diet/Wound Care/Special Instructions: Patient will be admitted Discharge Disposition: OTHER INSTITUTION NOT DEFINED
== END 2019-09-29 16:25 | disposition other institution (70) ==
LOC: EC 20:07 → 6NMEDSUR 22:34
PROVIDERS: ADMIT Hospitalist; ATTEND Hospitalist
DX: F10.229 Alcohol dependence with intoxication, unspecified (principal); R53.1 Weakness; Y90.8 Blood alcohol level of 240 mg/100 ml or more; G89.29 Other chronic pain; M54.2 Cervicalgia; M54.5 Low back pain; M19.90 Unspecified osteoarthritis, unspecified site; F17.210 Nicotine dependence, cigarettes, uncomplicated; W01.0XXA Fall on same level from slipping, tripping and stumbling without subsequent striking against object, initial encounter; Y92.009 Unspecified place in unspecified non-institutional (private) residence as the place of occurrence of the external cause; M25.519 Pain in unspecified shoulder; Z80.8 Family history of malignant neoplasm of other organs or systems; Z88.2 Allergy status to sulfonamides; Z88.8 Allergy status to other drugs, medicaments and biological substances; Z91.013 Allergy to seafood; Z79.891 Long term (current) use of opiate analgesic; Z79.899 Other long term (current) drug therapy
CPT/HCPCS: 96376; 96374; 96375; 99285; 36415; 80053; 85025; 85610; 85730; 81001; 80320; 73020; 72125; 70450; G0378 ×2; L0120; J2060 ×2; J2270

== ENCOUNTER → 2019-11-14 | Outpatient (CLI) | payer BC, OTHER ==
--- NOTE | 2019-11-14 12:03 | FL ---
EXAMINATION TYPE: FL barium swallow w video DATE OF EXAM: 11/14/2019 MODIFIED SWALLOW / DEGLUTITION STUDY CLINICAL HISTORY: Dysphagia. History of cervical spinal cord injury requiring surgery one to 2 months earlier. Total of 1 minute 13 seconds fluoroscopic time. There are 0 spot images saved to PACS. TECHNIQUE: Deglutition study is performed utilizing thin liquid barium, honey and nectar thick liqui d barium, barium thick pudding, and barium coated cracker. COMPARISON: CT cervical spine September 28, 2019. FINDINGS: The oral and pharyngeal phases show satisfactory initiation and propagation with all modali ties tested. Satisfactory mastication is seen with solid modalities tested. There is no evidence of penetration or aspiration with any modality tested. Mild pharyngeal residue was appreciated with more viscous modalities. Note is made of anterior fusion plate and metallic disc spacer C3-C4 level obser soila during scanning. IMPRESSION: No penetration or aspiration observed. Please refer to speech therapist notes for furthe r details if necessary.
== END | disposition home or self-care (01) ==
LOC: RADFLMAIN 11:19
PROVIDERS: ATTEND Internal Medicine
DX: R13.12 Dysphagia, oropharyngeal phase (principal)
CPT/HCPCS: 74230

== ENCOUNTER 2019-12-23 12:24 | Emergency (ER) | payer BC, OTHER ==
--- NOTE | 2019-12-23 13:08 | ED ---
Neck Injury/Pain HPI - General Chief Complaint: Neck Pain/Injury Stated Complaint: Neck Pain Time Seen by Provider: 12/23/19 12:28 Source: patient, EMS, RN notes reviewed Mode of arrival: EMS Limitations: no limitations - History of Present Illness Initial Comments: This a 59-year-old male presents emergency Department with chief complaint of neck pain. Patient states that she had surgery in September no she had hardware placed states that she had some swelling on her spinal cord at that time. Patient states that she's been doing well states the pain is never resolved since surgery. Patient states she's been taking chronic pain meds. Patient states she ran out of her pain meds states the pain is unbearable. Patient states she's had difficulty with movement of her upper extremity is primarily on her left since her surgery. Patient states that this is not different than usual. She states that she fell proximal 7-10 days ago but denies hitting her head or neck. Patient denies any chest pain or shortness of breath. Patient does not have a current follow-up appointment with surgeon. She did state surgeon is out of [facility]. EMS reports states that she's been abusing her pain meds is concerned. - Related Data Home Medications Medication Instructions Recorded Confirmed Fexofenadine/Pseudoephedrine 1 tab PO DAILY 12/19/18 09/28/19 [Katarzyna-D 12 Hour Tablet] HYDROcodone/APAP 7.5-325MG [[place] 1 tab PO BID PRN 09/28/19 09/28/19 7.5-325] Allergies Allergy/AdvReac Type Severity Reaction Status Date / Time iodine Allergy Rash/Hives Verified 12/23/19 12:31 shellfish derived [Shellfish] Allergy Dyspnea Verified 12/23/19 12:31 Sulfa (Sulfonamide Allergy Rash/Hives Verified 12/23/19 12:31 Antibiotics) Review of Systems ROS Statement: Those systems with pertinent positive or pertinent negative responses have been documented in the HPI. ROS Other: All systems not noted in ROS Statement are negative. Past Medical History Past Medical History: Osteoarthritis (OA) Additional Past Medical History / Comment(s): chronic back pain, neck pain History of Any Multi-Drug Resistant Organisms: None Reported Past Surgical History: Back Surgery Additional Past Surgical History / Comment(s): oral surgery, colonoscopy x 2 , neck surgery Past Anesthesia/Blood Transfusion Reactions: No Reported Reaction Past Psychological History: No Psychological Hx Reported Smoking Status: Current every day smoker Past Alcohol Use History: Abuse, Daily, Heavy Past Drug Use History: None Reported - Past Family History Mother Family Medical History: Cancer Additional Family Medical History / Comment(s): MELENOMA General Exam Limitations: no limitations General appearance: alert, in no apparent distress Head exam: Present: atraumatic, normocephalic, normal inspection Eye exam: Present: normal appearance, PERRL, EOMI. Absent: scleral icterus, conjunctival injection, periorbital swelling ENT exam: Present: normal exam, mucous membranes moist Neck exam: Present: normal inspection, tenderness (Diffuse posterior paraspinal), full ROM. Absent: meningismus, lymphadenopathy Respiratory exam: Present: normal lung sounds bilaterally. Absent: respiratory distress, wheezes, rales, rhonchi, stridor Cardiovascular Exam: Present: regular rate, normal rhythm, normal heart sounds. 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 Absent: motor sensory deficit Skin exam: Present: warm, dry, intact, normal color. Absent: rash Course Vital Signs 12/23/19 12:31 Temperature 98.1 F Pulse Rate 89 Respiratory 18 Rate Blood Pressure 143/80 O2 Sat by Pulse 99 Oximetry Medical Decision Making - Medical Decision Making This a 51-year-old female presented from for neck pain. This is chronic in nature with no acute changes on x-ray. Patient is neurovascular neurologically intact. Patient is due for her prescription for pain meds that she is on pain contract. Patient will be discharged advised to call her pain management tomorrow for pain medication. Disposition Clinical Impression: Chronic neck pain Disposition: HOME SELF-CARE Condition: Stable Instructions (If sedation given, give patient instructions): Chronic Pain (ED) Additional Instructions: Please return to the Emergency Department if symptoms worsen or any other concerns. Is patient prescribed a controlled substance at d/c from ED?: No Referrals: Danny Ogden DO [Primary Care Provider] - 1-2 days Time of Disposition: 13:44
[2019-12-23] MEDS ORDERED: HYDROcodone/APAP 10-325MG 1 EACH TAB PO ONE (13:26)
--- NOTE | 2019-12-23 13:32 | XR ---
EXAMINATION TYPE: XR cervical spine comp , DATE OF EXAM ORDERED: 12/23/2019 HISTORY: pain. COMPARISON: None. FINDINGS: There is been an ACDF at C3-4 with spacing material placement. Alignment remains normal. A tlantoaxial relationships are normal. There is intervertebral foraminal narrowing on the right at C4- 5 and rather diffusely on the left. No fractures are identified. IMPRESSION: 1. POSTSURGICAL CHANGE. 2. RESIDUAL DEGENERATIVE CHANGE. 3. MULTILEVEL INTERVERTEBRAL FORAMINAL NARROWING.
[2019-12-23 14:21] VITALS: BP 128/74; PULSE 78; RESP 16; TEMP 97.8
== END 2019-12-23 14:18 | disposition home or self-care (01) ==
LOC: EC 12:24
DX: G89.29 Other chronic pain (principal); M54.2 Cervicalgia; M19.90 Unspecified osteoarthritis, unspecified site; F17.200 Nicotine dependence, unspecified, uncomplicated; Z98.890 Other specified postprocedural states; Z79.891 Long term (current) use of opiate analgesic; Z79.899 Other long term (current) drug therapy; Z91.048 Other nonmedicinal substance allergy status; Z91.013 Allergy to seafood; Z88.2 Allergy status to sulfonamides
CPT/HCPCS: 72050; 99283

== ENCOUNTER 2020-01-28 21:49 | Inpatient (IN) | payer BC, OTHER ==
[2020-01-28] MEDS ORDERED: ONDANSETRON 4 MG/2 ML VIAL IVP STA (22:27)
[2020-01-28] MEDS ORDERED: SODIUM CHLORIDE 0.9% 500 ML 500 ML IV ONE (22:27)
[2020-01-28 22:56] LABS: Basophils # (A) 0.1 k/uL (0-0.2); Basophils % (A) 1 %; Eosinophils # (A) 0.1 k/uL (0-0.7); Eosinophils % (A) 1 %; HCT 50.1 % (34.0-46.0); HGB 16.5 gm/dL (11.4-16.0); Lymphocytes # (A) 1.5 k/uL (1.0-4.8); Lymphocytes % (A) 24 %; MCH 30.5 pg (25.0-35.0); MCV 92.5 fL (80.0-100.0); Monocytes # (A) 0.3 k/uL (0-1.0); Monocytes % (A) 5 %; Neutrophils # (A) 4.4 k/uL (1.3-7.7); Neutrophils % (A) 69 %; Platelet Count 140 k/uL (150-450); RBC 5.41 m/uL (3.80-5.40); RDW 14.1 % (11.5-15.5); WBC 6.4 k/uL (3.8-10.6)
[2020-01-28] MEDS ORDERED: HYDROcodone/APAP 7.5-325MG 1 EACH TAB PO ONE (23:00)
--- NOTE | 2020-01-28 23:04 | ED ---
Extremity Problem HPI <Raphael Chacon - Last Filed: 01/29/20 00:54> - General Source: patient Mode of arrival: EMS Limitations: no limitations <Shonda Davenport - Last Filed: 01/29/20 14:23> - General Chief complaint: Extremity Problem,Nontraumatic Stated complaint: shoulder pain Time Seen by Provider: 01/28/20 21:55 - History of Present Illness Initial comments: 89-year-old female who has history of alcohol and chronic opiate use presents emergency department today for chief complaint of left shoulder pain. Patient states she fell approximately 4 months ago in September she states she sustained a neck injury as well as a left shoulder injury she states she was lying on her left shoulder for many hours after falling. Patient states that she has been on [place] on a pain contract since his injury and has chronic severe left shoulder pain. Patient denies any changes as a close or pallor of the extremity. Patient states that her strength is at her baseline however she has run out of her [place] for the past 3 days and instead of taking the opioid she has been drinking very heavily. Her refused to give her Flexeril today and she went outside and called EMS (per EMS report obtained from ). Patient denies any chest pain shortness of breath she admits to some nausea. Patient denies arm/leg swelling, headache, dizziness, visual changes. Patient denies new back or neck pain. Patient upon arrival is requesting pain medications. No other complaints states. Patient appears well on arrival. Smells strongly of alcohol on arrival. (Shonda Davenport) - Related Data Home Medications Medication Instructions Recorded Confirmed Aspirin [Adult Low Dose Aspirin EC] 81 mg PO DAILY 01/29/20 01/29/20 Allergies Allergy/AdvReac Type Severity Reaction Status Date / Time shellfish derived [Shellfish] Allergy Severe Dyspnea Verified 01/29/20 12:20 iodine Allergy Rash/Hives Verified 01/29/20 09:08 Sulfa (Sulfonamide Allergy Rash/Hives Verified 01/29/20 09:08 Antibiotics) Review of Systems ROS Other: All systems not noted in ROS Statement are negative. <Raphael Chacon - Last Filed: 01/29/20 00:54> ROS Other: All systems not noted in ROS Statement are negative. <Shonda Davenport - Last Filed: 01/29/20 14:23> ROS Statement: Those systems with pertinent positive or pertinent negative responses have been documented in the HPI. Past Medical History Past Medical History: Osteoarthritis (OA) Additional Past Medical History / Comment(s): chronic back pain, neck pain History of Any Multi-Drug Resistant Organisms: None Reported Past Surgical History: Back Surgery Additional Past Surgical History / Comment(s): oral surgery, colonoscopy x 2 , neck surgery Past Anesthesia/Blood Transfusion Reactions: No Reported Reaction Past Psychological History: No Psychological Hx Reported Smoking Status: Current every day smoker Past Alcohol Use History: Abuse, Daily, Heavy Past Drug Use History: None Reported - Past Family History Mother Family Medical History: Cancer Additional Family Medical History / Comment(s): MELENOMA <Shonda Davenport - Last Filed: 01/29/20 14:23> General Exam Limitations: no limitations <Shonda Davenport - Last Filed: 01/29/20 14:23> - General Exam Comments Initial Comments: General: The patient is awake and alert, in no distress, but appears i ntoxicated Eye: Pupils are equal, round and reactive to light, extra-ocular movements are intact. No nystagmus. There is normal conjunctiva bilaterally. No signs of icterus. Ears, nose, mouth and throat: There are moist mucous membranes and no oral lesions. Neck: The neck is supple, there is no tenderness or JVD. No midline neck pain. Cardiovascular: There is a regular rate and rhythm. No murmur, rub or gallop is appreciated. Respiratory: Lungs are clear to auscultation, respirations are non-labored, breath sounds are equal. No wheezes, stridor, rales, or rhonchi. Gastrointestinal: Soft, non-distended, non-tender abdomen without masses or organomegaly noted. There is no rebound or guarding present. Musculoskeletal: Normal ROM, no tenderness. Strength 4/5 of the left arm, 5/5 of the right arm. Sensation intact of the UE b/l. Some atrophy noted of the left upper extremity. Radial pulses equal bilaterally 2+. Neurological: A&O x 3. CN II-XII intact grossly, There are no obvious motor or sensory deficits. Skin: Skin is warm and dry and no rashes or lesions are noted. Psychiatric: Cooperative (Shonda Davenport) Course Vital Signs 01/28/20 01/29/20 01/29/20 21:56 01:51 04:33 Temperature 98.5 F 98.8 F Pulse Rate 91 86 82 Respiratory 18 15 15 Rate Blood Pressure 149/89 141/74 105/59 O2 Sat by Pulse 97 96 97 Oximetry 01/29/20 01/29/20 06:15 06:36 Temperature 98.6 F Pulse Rate 77 78 Respiratory 18 18 Rate Blood Pressure 144/80 137/73 O2 Sat by Pulse 98 98 Oximetry Medical Decision Making - Lab Data Result diagrams: 01/28/20 22:49 01/29/20 00:15 <Raphael Chacon - Last Filed: 01/29/20 00:54> - Lab Data Result diagrams: 01/28/20 22:49 01/29/20 00:15 <Shonda Davenport - Last Filed: 01/29/20 14:23> - Medical Decision Making 59-year-old female presenting with chief complaint of alcohol intoxication, chronic left shoulder pain. She is significantly intoxicated upon initial arrival. She states she has not had anything to eat or drink besides alcohol all day. Laboratory testing is obtained, she has a serum alcohol of 300, she has a normal CBC which appears slightly concentrated. She has anion gap metabolic acidosis with a CO2 of 12 which is likely a combination of starvation ketosis, lactic acidosis secondary to dehydration. She has a lactic acid of 2.9. She has a transaminitis without significant abdominal pains I suspect this is predominantly from alcohol abuse. Patient does not have a ride and given the level of metabolic derangement as well as alcohol level she will be admitted awaiting sobriety, hydration, and reevaluation of acidosis. (Raphael Chacon) - Lab Data Lab Results 01/28/20 01/28/20 01/28/20 Range/Units 22:49 22:49 22:49 WBC 6.4 (3.8-10.6) k/uL RBC 5.41 H (3.80-5.40) m/uL Hgb 16.5 H (11.4-16.0) gm/dL Hct 50.1 H (34.0-46.0) % MCV 92.5 (80.0-100.0) fL MCH 30.5 (25.0-35.0) pg MCHC 33.0 (31.0-37.0) g/dL RDW 14.1 (11.5-15.5) % Plt Count 140 L (150-450) k/uL Neutrophils % 69 % Lymphocytes % 24 % Monocytes % 5 % Eosinophils % 1 % Basophils % 1 % Neutrophils # 4.4 (1.3-7.7) k/uL Lymphocytes # 1.5 (1.0-4.8) k/uL Monocytes # 0.3 (0-1.0) k/uL Eosinophils # 0.1 (0-0.7) k/uL Basophils # 0.1 (0-0.2) k/uL Sodium 137 (137-145) mmol/L Potassium 4.0 (3.5-5.1) mmol/L Chloride 96 L (98-107) mmol/L Carbon Dioxide 12 L (22-30) mmol/L Anion Gap 29 mmol/L BUN 7 (7-17) mg/dL Creatinine 0.54 (0.52-1.04) mg/dL Est GFR (CKD-EPI)AfAm >90 (>60 ml/min/1.73 sqM) Est GFR (CKD-EPI)NonAf >90 (>60 ml/min/1.73 sqM) Glucose 75 (74-99) mg/dL Lactic Ac Sepsis Rflx Plasma Lactic Acid Samuel (0.7-2.0) mmol/L Calcium 8.5 (8.4-10.2) mg/dL Magnesium 1.7 (1.6-2.3) mg/dL Total Bilirubin 0.7 (0.2-1.3) mg/dL AST 716 H (14-36) U/L ALT 339 H (4-34) U/L Alkaline Phosphatase 81 (38-126) U/L Troponin I <0.012 (0.000-0.034) ng/mL Total Protein 8.4 H (6.3-8.2) g/dL Albumin 5.4 H (3.5-5.0) g/dL Lipase 247 (23-300) U/L Urine Color Urine Appearance (Clear) Urine pH (5.0-8.0) Ur Specific [place] (1.001-1.035) Urine Protein (Negative) Urine Glucose (UA) (Negative) Urine Ketones (Negative) Urine Blood (Negative) Urine Nitrite (Negative) Urine Bilirubin (Negative) Urine Urobilinogen (<2.0) mg/dL Ur Leukocyte Esterase (Negative) Urine RBC (0-5) /hpf Urine WBC (0-5) /hpf Ur Squamous [place]ith Cells (0-4) /hpf Amorphous Sediment (None) /hpf Urine Bacteria (None) /hpf Hyaline Casts (0-2) /lpf Urine Mucus (None) /hpf Salicylates mg/dL Acetaminophen ug/mL Serum Alcohol 296 H* mg/dL 01/28/20 01/28/20 01/29/20 Range/Units 22:49 22:49 00:15 WBC (3.8-10.6) k/uL RBC (3.80-5.40) m/uL Hgb (11.4-16.0) gm/dL Hct (34.0-46.0) % MCV (80.0-100.0) fL MCH (25.0-35.0) pg MCHC (31.0-37.0) g/dL RDW (11.5-15.5) % Plt Count (150-450) k/uL Neutrophils % % Lymphocytes % % Monocytes % % Eosinophils % % Basophils % % Neutrophils # (1.3-7.7) k/uL Lymphocytes # (1.0-4.8) k/uL Monocytes # (0-1.0) k/uL Eosinophils # (0-0.7) k/uL Basophils # (0-0.2) k/uL Sodium 136 L (137-145) mmol/L Potassium 4.1 (3.5-5.1) mmol/L Chloride 98 (98-107) mmol/L Carbon Dioxide 12 L (22-30) mmol/L Anion Gap 26 mmol/L BUN 7 (7-17) mg/dL Creatinine 0.47 L (0.52-1.04) mg/dL Est GFR (CKD-EPI)AfAm >90 (>60 ml/min/1.73 sqM) Est GFR (CKD-EPI)NonAf >90 (>60 ml/min/1.73 sqM) Glucose 70 L (74-99) mg/dL Lactic Ac Sepsis Rflx Plasma Lactic Acid Samuel (0.7-2.0) mmol/L Calcium 8.2 L (8.4-10.2) mg/dL Magnesium (1.6-2.3) mg/dL Total Bilirubin 0.8 (0.2-1.3) mg/dL AST 719 H (14-36) U/L ALT 340 H (4-34) U/L Alkaline Phosphatase 81 (38-126) U/L Troponin I (0.000-0.034) ng/mL Total Protein 8.0 (6.3-8.2) g/dL Albumin 5.1 H (3.5-5.0) g/dL Lipase (23-300) U/L Urine Color Urine Appearance (Clear) Urine pH (5.0-8.0) Ur Specific [place] (1.001-1.035) Urine Protein (Negative) Urine Glucose (UA) (Negative) Urine Ketones (Negative) Urine Blood (Negative) Urine Nitrite (Negative) Urine Bilirubin (Negative) Urine Urobilinogen (<2.0) mg/dL Ur Leukocyte Esterase (Negative) Urine RBC (0-5) /hpf Urine WBC (0-5) /hpf Ur Squamous Epith Cells (0-4) /hpf Amorphous Sediment (None) /hpf Urine Bacteria (None) /hpf Hyaline Casts (0-2) /lpf Urine Mucus (None) /hpf Salicylates <1.0 mg/dL Acetaminophen <10.0 ug/mL Serum Alcohol mg/dL 01/29/20 01/29/20 01/29/20 Range/Units 00:15 00:39 00:40 WBC (3.8-10.6) k/uL RBC (3.80-5.40) m/uL Hgb (11.4-16.0) gm/dL Hct (34.0-46.0) % MCV (80.0-100.0) fL MCH (25.0-35.0) pg MCHC (31.0-37.0) g/dL RDW (11.5-15.5) % Plt Count (150-450) k/uL Neutrophils % % Lymphocytes % % Monocytes % % Eosinophils % % Basophils % % Neutrophils # (1.3-7.7) k/uL Lymphocytes # (1.0-4.8) k/uL Monocytes # (0-1.0) k/uL Eosinophils # (0-0.7) k/uL Basophils # (0-0.2) k/uL Sodium (137-145) mmol/L Potassium (3.5-5.1) mmol/L Chloride (98-107) mmol/L Carbon Dioxide (22-30) mmol/L Anion Gap mmol/L BUN (7-17) mg/dL Creatinine (0.52-1.04) mg/dL Est GFR (CKD-EPI)AfAm (>60 ml/min/1.73 sqM) Est GFR (CKD-EPI)NonAf (>60 ml/min/1.73 sqM) Glucose (74-99) mg/dL Lactic Ac Sepsis Rflx Y Plasma Lactic Acid Samuel 2.9 H* (0.7-2.0) mmol/L Calcium (8.4-10.2) mg/dL Magnesium (1.6-2.3) mg/dL Total Bilirubin (0.2-1.3) mg/dL AST (14-36) U/L ALT (4-34) U/L Alkaline Phosphatase (38-126) U/L Troponin I (0.000-0.034) ng/mL Total Protein (6.3-8.2) g/dL Albumin (3.5-5.0) g/dL Lipase (23-300) U/L Urine Color Yellow Urine Appearance Clear (Clear) Urine pH 5.5 (5.0-8.0) Ur Specific [place] 1.019 (1.001-1.035) Urine Protein 2+ H (Negative) Urine Glucose (UA) Negative (Negative) Urine Ketones 4+ H (Negative) Urine Blood Small H (Negative) Urine Nitrite Negative (Negative) Urine Bilirubin Negative (Negative) Urine Urobilinogen <2.0 (<2.0) mg/dL Ur Leukocyte Esterase Negative (Negative) Urine RBC 3 (0-5) /hpf Urine WBC 1 (0-5) /hpf Ur Squamous Epith Cells <1 (0-4) /hpf Amorphous Sediment Occasional H (None) /hpf Urine Bacteria Occasional H (None) /hpf Hyaline Casts 7 H (0-2) /lpf Urine Mucus Rare H (None) /hpf Salicylates mg/dL Acetaminophen ug/mL Serum Alcohol mg/dL Disposition Is patient prescribed a controlled substance at d/c from ED?: No Decision to Admit Reason: Admit from EC Decision Date: 01/29/20 Decision Time: 00:56 <Raphael Chacon - Last Filed: 01/29/20 00:54> <Shonda Davenport - Last Filed: 01/29/20 14:23> Clinical Impression: Alcohol intoxication, Metabolic acidosis, Dehydration Disposition: ADMITTED IP TO THIS [facility] Condition: Stable
[2020-01-28 23:16] LABS: ALT 339 U/L (4-34); AST 716 U/L (14-36); African American GFR (CKD) >90 (>60 ml/min/1.73 sqM); Albumin 5.4 g/dL (3.5-5.0); Alkaline Phosphatase 81 U/L (38-126); Anion Gap 29 mmol/L; Blood Urea Nitrogen 7 mg/dL (7-17); Calcium 8.5 mg/dL (8.4-10.2); Carbon Dioxide 12 mmol/L (22-30); Chloride 96 mmol/L (98-107); Glucose 75 mg/dL (74-99); Magnesium 1.7 mg/dL (1.6-2.3); Non-African American GFR(CKD) >90 (>60 ml/min/1.73 sqM); Sodium 137 mmol/L (137-145); Total Bilirubin 0.7 mg/dL (0.2-1.3); Total Protein 8.4 g/dL (6.3-8.2)
[2020-01-28 23:20] LABS: Alcohol 296 mg/dL
[2020-01-29] MEDS: SODIUM CHLORIDE 0.9% 1,000 ML IV SCH ×4 (00:18→19:25)
[2020-01-29 00:32] LABS: ALT 340 U/L (4-34); AST 719 U/L (14-36); African American GFR (CKD) >90 (>60 ml/min/1.73 sqM); Albumin 5.1 g/dL (3.5-5.0); Alkaline Phosphatase 81 U/L (38-126); Anion Gap 26 mmol/L; Blood Urea Nitrogen 7 mg/dL (7-17); Calcium 8.2 mg/dL (8.4-10.2); Carbon Dioxide 12 mmol/L (22-30); Chloride 98 mmol/L (98-107); Glucose 70 mg/dL (74-99); Non-African American GFR(CKD) >90 (>60 ml/min/1.73 sqM); Potassium 4.1 mmol/L (3.5-5.1); Sodium 136 mmol/L (137-145); Total Bilirubin 0.8 mg/dL (0.2-1.3)
[2020-01-29] MEDS ORDERED: SODIUM CHLORIDE 0.9% 500 ML 500 ML IV ONE (00:48)
[2020-01-29] MEDS ORDERED: THIAMINE 100 MG/ML 2 ML VIAL IM STA (00:52)
[2020-01-29] MEDS ORDERED: LORazepam 2 MG/ML INJ IV PRN ×2 (00:52)
[2020-01-29] MEDS ORDERED: NALOXONE 0.4 MG/ML 1 ML VIAL IV PRN (00:53)
[2020-01-29 01:21] LABS: Amorphous Sediment,Urine Occasional /hpf; Appearance,Urine Clear (Clear); Bacteria,Urine Occasional /hpf; Bilirubin,Urine Negative (Negative); Blood,Urine Small (Negative); Color,Urine Yellow; Glucose,Urine (UA) Negative (Negative); Hyaline Casts,Urine 7 /lpf (0-2); Ketones,Urine 4+ (Negative); Leukocyte Esterase,Urine Negative (Negative); Mucus,Urine Rare /hpf; Nitrite,Urine Negative (Negative); PH, Urine 5.5 (5.0-8.0); Protein,Urine 2+ (Negative); RBC,Urine 3 /hpf (0-5); Specific Gravity,Urine 1.019 (1.001-1.035); Squamous Epithelial Cell,Urine <1 /hpf (0-4); Urobilinogen,Urine <2.0 mg/dL (<2.0); WBC,Urine 1 /hpf (0-5)
[2020-01-29] MEDS: LORazepam 2 MG/ML INJ IV PRN ×2 (02:13→06:12)
[2020-01-29] MEDS ORDERED: MORPHINE SULFATE 4 MG/ML SYRINGE IVP STA (04:17)
[2020-01-29] MEDS: NICOTINE 14MG/24HR PATCH TRANSDERM SCH (14:33)
[2020-01-29] MEDS: DIAZEPAM 5 MG TAB PO SCH ×2 (15:29→23:45)
[2020-01-29] MEDS: DEXTROSE 5%-0.45% NACL 1,000 ML with SODIUM BICARB (1 MEQ/ML) 100 ML IV SCH ×2 (15:29)
[2020-01-29] MEDS: METOPROLOL TARTRATE 12.5 MG TAB PO SCH ×2 (15:29→23:45)
--- NOTE | 2020-01-29 16:11 | P.HPIM ---
History of Present Illness H&P Date: 01/29/20 Chief Complaint: Left shoulder pain History of presenting complaint: This is a 59-year-old patient of Dr. Fong. Patient was admitted here on September 29 of this 2019. Patient that I was admitted following a fall of alcohol intoxication. She was found to have a spinal cord concussion and transferred out to [facility]. Patient did undergo surgery at [facility] was then in rehab. Did well subsequently. Patient now presents to the ER. Has started drinking again for last few weeks. About a pint of whiskey a day. Also smokes half a pack a day. Patient's had chronic left shoulder pain and is getting [place] on a pain contract. As per the ER note she wanted Flexeril from her . And got into an argument. Subsequently the patient got upset and decided to call 911 and was transferred out of the ER. Patient was intoxicated with alcohol. In the ER. Was put on a CIWA scale. Patient's left shoulder pain is chronic and acute. It been there for 4 months now. Patient has slight nausea but was able to tolerate diet. Breathing is stable. Very anxious. Having early alcohol withdrawal symptoms. Review of systems: GEN.: Tired EYES: None HEENT: None NECK: None RESPIRATORY: Occasional wheezing CARDIOVASCULAR: None GASTROINTESTINAL: Slight nausea GENITOURINARY: None MUSCULOSKELETAL: Chronic left shoulder pain] LYMPHATICS: None HEMATOLOGICAL: None PSYCHIATRY: [Anxious NEUROLOGICAL: Early tremors Past medical history to include: Spinal cord concussion secondary to fall, chronic alcohol some, chronic nicotine dependence, Social history: Lives with her ,'s drinks a pint of whiskey a day, smoking half a pack a day Physical examination: VITAL SIGNS: 98.6, 78, 18, [address]3212, 98% on room air, GENERAL: BMI 22.2, sitting up, anxious. EYES: Pupils equal. Conjunctiva normal. HEENT: External appearance of nose and ears normal, oral cavity grossly normal. NECK: JVD not raised; masses not palpable. HEART: First and second heart sounds are normal; no edema. LUNGS:[ Respiratory rate normal; decreased breath sounds. ABDOMEN: Soft, nontender, liver spleen not palpable, no masses palpable. PSYCH: Alert and oriented x3; mood and affect anxiousl. NEUROLOGICAL: Cranial nerves grossly intact; no facial asymmetry, power and sensation grossly intact. Tremors present on the are stretched and LYMPHATICS: No lymph nodes palpable in the axilla and neck. INVESTIGATIONS, reviewed in the clinical context: White count 6.4 hemoglobin 16.5 platelets 140 potassium 4.1 bicarb 12 bun 7 creatinine 0.47 lactic acid 2.9 AST 716 ALT 339 Serum alcohol 296 acetaminophen less than 10 salicylate less than 1 EKG tracing personally reviewed by me-no normal sinus rhythm Assessment: -Acute alcohol intoxication, POA -Early alcohol withdrawal syndrome, POA -Alcohol use disorder -Chronic nicotine dependence, patient's cigarette smoker -Alcoholic hepatitis -Acute metabolic acidosis -Chronic left shoulder pain Plan: Patient be started on Valium 5 mg every 8:00 for DT prophylaxis and also started on Lopressor 12.5 mg by mouth every 8 to cut back on August very dry. For nausea and also had some Pepcid and liquid Tums. CIWA scale remains in place. Patient was counseled about smoking and alcohol. We will use fall precautions. Past Medical History Past Medical History: Osteoarthritis (OA) Additional Past Medical History / Comment(s): chronic back pain, neck pain History of Any Multi-Drug Resistant Organisms: None Reported Past Surgical History: Back Surgery Additional Past Surgical History / Comment(s): oral surgery, colonoscopy x 2 , neck surgery Past Anesthesia/Blood Transfusion Reactions: No Reported Reaction Past Psychological History: No Psychological Hx Reported Smoking Status: Current every day smoker Past Alcohol Use History: Abuse, Daily, Heavy Past Drug Use History: None Reported - Past Family History Mother Family Medical History: Cancer Additional Family Medical History / Comment(s): MELENOMA Medications and Allergies Home Medications Medication Instructions Recorded Confirmed Type Aspirin [Adult Low Dose Aspirin EC] 81 mg PO DAILY 01/29/20 01/29/20 History Allergies Allergy/AdvReac Type Severity Reaction Status Date / Time shellfish derived [Shellfish] Allergy Severe Dyspnea Verified 01/29/20 12:20 iodine Allergy Rash/Hives Verified 01/29/20 09:08 Sulfa (Sulfonamide Allergy Rash/Hives Verified 01/29/20 09:08 Antibiotics) Physical Exam Vitals: Vital Signs Temp Pulse Resp BP Pulse Ox 01/29/20 06:36 98.6 F 78 18 137/73 98 01/29/20 06:15 77 18 144/80 98 01/29/20 04:33 82 15 105/59 97 01/29/20 01:51 98.8 F 86 15 141/74 96 01/28/20 21:56 98.5 F 91 18 149/89 97 Intake and Output 01/28/20 01/29/20 01/29/20 22:59 06:59 14:59 Output Total 50 Balance -50 Output: Urine 50 Straight 50 Other: Weight 68.039 kg Results CBC & Chem 7: 01/28/20 22:49 01/29/20 00:15 Labs: Abnormal Lab Results - Last 24 Hours (Table) 01/28/20 01/28/20 01/29/20 Range/Units 22:49 22:49 00:15 RBC 5.41 H (3.80-5.40) m/uL Hgb 16.5 H (11.4-16.0) gm/dL Hct 50.1 H (34.0-46.0) % Plt Count 140 L (150-450) k/uL Sodium 136 L (137-145) mmol/L Chloride 96 L (98-107) mmol/L Carbon Dioxide 12 L 12 L (22-30) mmol/L Creatinine 0.47 L (0.52-1.04) mg/dL Glucose 70 L (74-99) mg/dL Plasma Lactic Acid Samuel (0.7-2.0) mmol/L Calcium 8.2 L (8.4-10.2) mg/dL AST 716 H 719 H (14-36) U/L ALT 339 H 340 H (4-34) U/L Total Protein 8.4 H (6.3-8.2) g/dL Albumin 5.4 H 5.1 H (3.5-5.0) g/dL Urine Protein (Negative) Urine Ketones (Negative) Urine Blood (Negative) Amorphous Sediment (None) /hpf Urine Bacteria (None) /hpf Hyaline Casts (0-2) /lpf Urine Mucus (None) /hpf Serum Alcohol 296 H* mg/dL 01/29/20 01/29/20 Range/Units 00:15 00:40 RBC (3.80-5.40) m/uL Hgb (11.4-16.0) gm/dL Hct (34.0-46.0) % Plt Count (150-450) k/uL Sodium (137-145) mmol/L Chloride (98-107) mmol/L Carbon Dioxide (22-30) mmol/L Creatinine (0.52-1.04) mg/dL Glucose (74-99) mg/dL Plasma Lactic Acid Samuel 2.9 H* (0.7-2.0) mmol/L Calcium (8.4-10.2) mg/dL AST (14-36) U/L ALT (4-34) U/L Total Protein (6.3-8.2) g/dL Albumin (3.5-5.0) g/dL Urine Protein 2+ H (Negative) Urine Ketones 4+ H (Negative) Urine Blood Small H (Negative) Amorphous Sediment Occasional H (None) /hpf Urine Bacteria Occasional H (None) /hpf Hyaline Casts 7 H (0-2) /lpf Urine Mucus Rare H (None) /hpf Serum Alcohol mg/dL
[2020-01-29] MEDS: CALCIUM CARBONATE LIQUID 500 MG/5 ML CUP PO SCH (17:43)
[2020-01-29] MEDS: THIAMINE 100 MG TAB PO SCH (17:43)
[2020-01-29] MEDS: PANTOPRAZOLE 40 MG TABLET PO SCH (17:43)
[2020-01-30] MEDS: DEXTROSE 5%-0.45% NACL 1,000 ML with SODIUM BICARB (1 MEQ/ML) 100 ML IV SCH ×6 (00:07→17:13)
[2020-01-30] MEDS: SODIUM CHLORIDE 0.9% 1,000 ML IV SCH ×2 (04:50→12:09)
[2020-01-30 06:14] LABS: Basophils % (A) 0 %; Eosinophils # (A) 0.1 k/uL (0-0.7); Eosinophils % (A) 3 %; HCT 40.7 % (34.0-46.0); HGB 13.9 gm/dL (11.4-16.0); Lymphocytes # (A) 1.1 k/uL (1.0-4.8); Lymphocytes % (A) 23 %; MCH 31.3 pg (25.0-35.0); MCHC 34.1 g/dL (31.0-37.0); MCV 91.9 fL (80.0-100.0); Mean Platelet Volume 7.9; Monocytes # (A) 0.2 k/uL (0-1.0); Monocytes % (A) 4 %; Neutrophils # (A) 3.4 k/uL (1.3-7.7); Neutrophils % (A) 70 %; RBC 4.43 m/uL (3.80-5.40); RDW 14.2 % (11.5-15.5); WBC 4.9 k/uL (3.8-10.6)
[2020-01-30 06:54] LABS: ALT 284 U/L (4-34); AST 387 U/L (14-36); African American GFR (CKD) >90 (>60 ml/min/1.73 sqM); Albumin 3.8 g/dL (3.5-5.0); Alkaline Phosphatase 62 U/L (38-126); Anion Gap 7 mmol/L; Blood Urea Nitrogen 2 mg/dL (7-17); Calcium 8.4 mg/dL (8.4-10.2); Carbon Dioxide 34 mmol/L (22-30); Chloride 87 mmol/L (98-107); Glucose 150 mg/dL (74-99); Magnesium 1.2 mg/dL (1.6-2.3); Non-African American GFR(CKD) >90 (>60 ml/min/1.73 sqM); Potassium 2.9 mmol/L (3.5-5.1); Sodium 128 mmol/L (137-145); Total Bilirubin 1.7 mg/dL (0.2-1.3); Total Protein 6.5 g/dL (6.3-8.2)
[2020-01-30] MEDS ORDERED: POTASSIUM CHLORIDE ER 20 MEQ TAB.ER PO STA (07:41)
[2020-01-30] MEDS: PANTOPRAZOLE 40 MG TABLET PO SCH ×2 (08:02→17:09)
[2020-01-30] MEDS: THIAMINE 100 MG TAB PO SCH ×2 (08:02→17:08)
[2020-01-30] MEDS: DIAZEPAM 5 MG TAB PO SCH ×2 (08:02→17:08)
[2020-01-30] MEDS: METOPROLOL TARTRATE 12.5 MG TAB PO SCH ×2 (08:02→17:08)
[2020-01-30] MEDS: MAGNESIUM OXIDE 400 MG TAB PO SCH ×3 (08:02→22:34)
[2020-01-30] MEDS: NICOTINE 14MG/24HR PATCH TRANSDERM SCH (08:02)
[2020-01-30] MEDS: CALCIUM CARBONATE LIQUID 500 MG/5 ML CUP PO SCH ×3 (08:03→17:08)
[2020-01-30 08:13] LABS: Platelet Count 77 k/uL (150-450)
[2020-01-30] MEDS ORDERED: POTASSIUM CHLORIDE ER 20 MEQ TAB.ER PO ONE ×2 (11:00→18:11)
[2020-01-30] MEDS: ONDANSETRON 4 MG/2 ML VIAL IVP PRN ×2 (12:19→19:32)
[2020-01-30] MEDS: CIPROFLOXACIN 0.3% OPHTH SOLN 5 ML BTL RIGHT EYE SCH ×3 (12:19→20:10)
[2020-01-30 15:47] LABS: Magnesium 1.2 mg/dL (1.6-2.3); Potassium 3.3 mmol/L (3.5-5.1)
[2020-01-30] MEDS: LORazepam 2 MG/ML INJ IV PRN (20:04)
--- NOTE | 2020-01-30 22:29 | P.PN ---
Progress Note - Text Progress Note Date: 01/30/20 Chief Complaint: Left shoulder pain History of presenting complaint: This is a 59-year-old patient of Dr. Fong. Patient was admitted here on September 29 of this 2019. Patient that I was admitted following a fall of alcohol intoxication. She was found to have a spinal cord concussion and transferred out to [facility]. Patient did undergo surgery at [facility] was then in rehab. Did well subsequently. Patient now presents to the ER. Has started drinking again for last few weeks. About a pint of whiskey a day. Also smokes half a pack a day. Patient's had chronic left shoulder pain and is getting [place] on a pain contract. As per the ER note she wanted Flexeril from her . And got into an argument. Subsequently the patient got upset and decided to call 911 and was transferred out of the ER. Patient was intoxicated with alcohol. In the ER. Was put on a CIWA scale. Patient's left shoulder pain is chronic and acute. It been there for 4 months now. Patient has slight nausea but was able to tolerate diet. Breathing is stable. Very anxious. Having early alcohol withdrawal symptoms. Admitted with-acute alcohol intoxication, alcohol withdrawal syndrome. Possibly alcoholic myopathy and gait dysfunction from the same. Patient started on Valium, Lopressor. Today-feeling a bit better. Did tolerate some diet. Had some nausea. Weakness in the muscles. It woke up with a chair. Review of systems: Was done for constitutional, cardiovascular, GI, pulmonary. relevant finding as above Active Medications Calcium Carbonate/Glycine (Tums Liquid) 500 mg PO TID-W/MEALS [facility] Last Admin: 01/30/20 17:08 Dose: 500 mg Documented by: Ciprofloxacin (Cipro Ophth Soln) 2 drops RIGHT EYE Q4HR [facility] Last Admin: 01/30/20 20:10 Dose: 2 drops Documented by: Diazepam (Valium) 2.5 mg PO Q8H [facility] Last Admin: 01/30/20 17:08 Dose: 2.5 mg Documented by: Sodium Bicarbonate 100 ml/ (Dextrose/Sodium Chloride) 1,100 mls @ 125 mls/hr IV .Q8H48M [facility] Last Admin: 01/30/20 17:13 Dose: Not Given Documented by: Lorazepam (Ativan) 1 mg IV Q2HR PRN PRN Reason: CIWA 8 or 9 Last Admin: 01/30/20 20:04 Dose: 1 mg Documented by: Lorazepam (Ativan) 1 mg IV Q1HR PRN PRN Reason: CIWA 10 to 15 Lorazepam (Ativan) 2 mg IV Q10M PRN PRN Reason: CIWA 16 or higher Stop: 01/31/20 00:52 Magnesium Oxide (Mag-Ox) 200 mg PO TID [facility] Last Admin: 01/30/20 17:08 Dose: 200 mg Documented by: Metoprolol Tartrate (Lopressor) 12.5 mg PO Q8HR [facility] Last Admin: 01/30/20 17:08 Dose: 12.5 mg Documented by: Naloxone HCl (Narcan) 0.2 mg IV Q2M PRN PRN Reason: Opioid Reversal Nicotine (Habitrol 14mg/24hr Patch) 1 patch TRANSDERM DAILY [facility] Last Admin: 01/30/20 08:02 Dose: 1 patch Documented by: Ondansetron HCl (Zofran) 4 mg IVP Q6HR PRN PRN Reason: Nausea And Vomiting Last Admin: 01/30/20 19:32 Dose: 4 mg Documented by: Pantoprazole Sodium (Protonix) 40 mg PO AC-BID [facility] Last Admin: 01/30/20 17:09 Dose: 40 mg Documented by: Thiamine HCl (Vitamin B-1) 100 mg PO BID-W/MEALS [facility] Last Admin: 01/30/20 17:08 Dose: 100 mg Documented by: Physical examination: VITAL SIGNS: 99.3, 77, 14, 130/78, 93% on room air GENERAL: Sitting up, more awake in bed today slightly anxious EYES: Pupils equal. Conjunctiva normal. HEENT: External appearance of nose and ears normal, oral cavity grossly normal. NECK: JVD not raised; masses not palpable. HEART: First and second heart sounds are normal; no edema. LUNGS:[ Respiratory rate normal; decreased breath sounds. ABDOMEN: Soft, nontender, liver spleen not palpable, no masses palpable. PSYCH: Alert and oriented x3; mood and affect anxiousl. Neurological-less tremors INVESTIGATIONS, reviewed in the clinical context: White count 4.9 hemoglobin 13.9 platelets 77 potassium 2.9 crit 0.3 once magnesium 1.2 White count 6.4 hemoglobin 16.5 platelets 140 potassium 4.1 bicarb 12 bun 7 creatinine 0.47 lactic acid 2.9 AST 716 ALT 339 Serum alcohol 296 acetaminophen less than 10 salicylate less than 1 EKG tracing personally reviewed by me-no normal sinus rhythm Assessment: -Acute alcohol intoxication, POA -Early alcohol withdrawal syndrome, POA -Alcohol use disorder -Chronic nicotine dependence, patient's cigarette smoker -Alcoholic hepatitis -Acute metabolic acidosis-improving -Chronic left shoulder pain -Alcoholic myopathy, 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 Plan: We'll cut back her Valium to 2.5 mg every 8. Replace potassium and magnesium aggressively. Discussed with the patient. Encouraged the patient to be up in a chair. Had sodium chloride tablets. add food supplement
[2020-01-31] MEDS: SODIUM CHLORIDE TAB 1 GM TAB PO SCH ×3 (00:03→11:46)
[2020-01-31] MEDS: DIAZEPAM 5 MG TAB PO SCH ×2 (00:04→08:21)
[2020-01-31] MEDS: METOPROLOL TARTRATE 12.5 MG TAB PO SCH ×2 (00:04→08:21)
[2020-01-31] MEDS: CIPROFLOXACIN 0.3% OPHTH SOLN 5 ML BTL RIGHT EYE SCH ×4 (00:05→11:46)
[2020-01-31 04:43] VITALS: RESP 18
[2020-01-31 06:45] LABS: African American GFR (CKD) >90 (>60 ml/min/1.73 sqM); Anion Gap 6 mmol/L; Blood Urea Nitrogen <2 mg/dL (7-17); Calcium 9.3 mg/dL (8.4-10.2); Carbon Dioxide 32 mmol/L (22-30); Chloride 95 mmol/L (98-107); Glucose 102 mg/dL (74-99); Magnesium 1.4 mg/dL (1.6-2.3); Non-African American GFR(CKD) >90 (>60 ml/min/1.73 sqM); Potassium 3.7 mmol/L (3.5-5.1); Sodium 133 mmol/L (137-145)
[2020-01-31] MEDS: MAGNESIUM OXIDE 400 MG TAB PO SCH (08:21)
[2020-01-31] MEDS: NICOTINE 14MG/24HR PATCH TRANSDERM SCH (08:21)
[2020-01-31] MEDS: PANTOPRAZOLE 40 MG TABLET PO SCH (08:21)
[2020-01-31] MEDS: THIAMINE 100 MG TAB PO SCH (08:22)
[2020-01-31] MEDS: CALCIUM CARBONATE LIQUID 500 MG/5 ML CUP PO SCH ×2 (08:22→11:46)
[2020-01-31] MEDS: ONDANSETRON 4 MG/2 ML VIAL IVP PRN (08:29)
[2020-01-31 12:01] VITALS: BP 110/72; PULSE 74; TEMP 98.2
--- NOTE | 2020-01-31 23:52 | P.DS ---
Providers Date of admission: 01/30/20 12:51 Expected date of discharge: 01/31/20 Attending physician: Oswaldo Rush Primary care physician: [facility] Course: Chief Complaint: Left shoulder pain History of presenting complaint: This is a 59-year-old patient of Dr. Fong. Patient was admitted here on September 29 of this year 2019. Patient that I was admitted following a fall of alcohol intoxication. She was found to have a spinal cord concussion and transferred out to [facility]. Patient did undergo surgery at [facility] was then in rehab. Did well subsequently. Patient now presents to the ER. Has started drinking again for last few weeks. About a pint of whiskey a day. Also smokes half a pack a day. Patient's had chronic left shoulder pain and is getting [place] on a pain contract. As per the ER note she wanted Flexeril from her . And got into an argument. Subsequently the patient got upset and decided to call 911 and was transferred out of the ER. Patient was intoxicated with alcohol. In the ER. Was put on a CIWA scale. Patient's left shoulder pain is chronic and acute. It been there for 4 months now. Patient has slight nausea but was able to tolerate diet. Breathing is stable. Very anxious. Having early alcohol withdrawal symptoms. Admitted with-acute alcohol intoxication, alcohol withdrawal syndrome. Possibly alcoholic myopathy and gait dysfunction from the same. Patient started on Valium, Lopressor. Today-the much better. Ambulating on her own. Oral intake better. Discussed with the nurse. Patient advised to increase oral intake. Advised against smoking and alcohol. Physical examination: VITAL SIGNS: 98.2, 74, 18, 110/72, 97% on room air GENERAL: Sitting up, comfortable EYES: Pupils equal. Conjunctiva normal. HEENT: External appearance of nose and ears normal, oral cavity grossly normal. NECK: JVD not raised; masses not palpable. HEART: First and second heart sounds are normal; no edema. LUNGS:[ Respiratory rate normal; decreased breath sounds. ABDOMEN: Soft, nontender, liver spleen not palpable, no masses palpable. PSYCH: Alert and oriented x3; mood and affect minimally anxious INVESTIGATIONS, reviewed in the clinical context: Potassium 3.7 creatinine 0.41 magnesium 1.4 sodium 133 Previous testing White count 4.9 hemoglobin 13.9 platelets 77 potassium 2.9 crit 0.3 once magnesium 1.2 White count 6.4 hemoglobin 16.5 platelets 140 potassium 4.1 bicarb 12 bun 7 creatinine 0.47 lactic acid 2.9 AST 716 ALT 339 Serum alcohol 296 acetaminophen less than 10 salicylate less than 1 EKG tracing personally reviewed by me-no normal sinus rhythm Assessment: -Acute alcohol intoxication, POA -Early alcohol withdrawal syndrome, POA -Alcohol use disorder -Chronic nicotine dependence, patient's cigarette smoker -Alcoholic hepatitis -Acute metabolic acidosis-improving -Chronic left shoulder pain -Alcoholic myopathy, 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-Much improved Disposition: Home Patient Condition at Discharge: Stable Plan - Discharge Summary New Discharge Prescriptions: New Ciprofloxacin Ophth Soln [Ciloxan 0.3% Ophth Soln] 2 drops RIGHT EYE Q4HR ml Nicotine 14Mg/24Hr Patch [Habitrol] 1 patch TRANSDERM DAILY #14 patch Metoprolol Tartrate [Lopressor] 12.5 mg PO Q8HR #9 tab Magnesium Oxide [Mag-Ox] 200 mg PO TID #14 tab Multivitamin [Multivitamins Adult Gummies] 1 each PO DAILY #30 tablet Omeprazole [PriLOSEC] 20 mg PO AC-BID #30 cap Diazepam [Valium] 2 mg PO TID #5 tab Thiamine [Vitamin B-1] 100 mg PO BID-W/MEALS #30 tab Continue Aspirin [Adult Low Dose Aspirin EC] 81 mg PO DAILY Discharge Medication List Aspirin [Adult Low Dose Aspirin EC] 81 mg PO DAILY 01/29/20 [History] Ciprofloxacin Ophth Soln [Ciloxan 0.3% Ophth Soln] 2 drops RIGHT EYE Q4HR ml 01/31/20 [Rx] Diazepam [Valium] 2 mg PO TID #5 tab 01/31/20 [Rx] Magnesium Oxide [Mag-Ox] 200 mg PO TID #14 tab 01/31/20 [Rx] Metoprolol Tartrate [Lopressor] 12.5 mg PO Q8HR #9 tab 01/31/20 [Rx] Multivitamin [Multivitamins Adult Gummies] 1 each PO DAILY #30 tablet 01/31/20 [Rx] Nicotine 14Mg/24Hr Patch [Habitrol] 1 patch TRANSDERM DAILY #14 patch 01/31/20 [Rx] Omeprazole [PriLOSEC] 20 mg PO AC-BID #30 cap 01/31/20 [Rx] Thiamine [Vitamin B-1] 100 mg PO BID-W/MEALS #30 tab 01/31/20 [Rx] Follow up Appointment(s)/Referral(s): Danny Ogden DO [Primary Care Provider] - 02/25/20 4:20 pm Patient Instructions/Handouts: Alcohol Intoxication (DC), Abuse of Alcohol (DC) Activity/Diet/Wound Care/Special Instructions: activity as tolerated regular soft bland diet as tolerated Discharge Disposition: HOME SELF-CARE
== END 2020-01-31 14:30 | disposition home or self-care (01) | DRG 897 ==
LOC: EC 21:49 → 5NMEDONC 01-29 00:53 → OBSVTOIN 01-30 12:51
PROVIDERS: ADMIT Hospitalist; ATTEND Hospitalist
DX: F10.239 Alcohol dependence with withdrawal, unspecified (principal); E87.1 Hypo-osmolality and hyponatremia; E87.2 Acidosis; G72.1 Alcoholic myopathy; F10.229 Alcohol dependence with intoxication, unspecified; K70.10 Alcoholic hepatitis without ascites; Z11.59 Encounter for screening for other viral diseases; E03.9 Hypothyroidism, unspecified; E86.0 Dehydration; E87.6 Hypokalemia; F17.210 Nicotine dependence, cigarettes, uncomplicated; G89.29 Other chronic pain; M19.90 Unspecified osteoarthritis, unspecified site; M54.2 Cervicalgia; M54.9 Dorsalgia, unspecified; M25.512 Pain in left shoulder; R26.9 Unspecified abnormalities of gait and mobility; Z79.82 Long term (current) use of aspirin; Z79.891 Long term (current) use of opiate analgesic; Z88.2 Allergy status to sulfonamides; Z91.041 Radiographic dye allergy status; Z91.013 Allergy to seafood; Y90.8 Blood alcohol level of 240 mg/100 ml or more
CPT/HCPCS: 36415; 51701; 80048; 80053; 80320; 80329; 81001; 83520; 83605; 83690; 83735; 83930; 84132; 84484; 85025; 87635; 93005; 96361; 96372; 96374; 96375; 96376; 99284

== ENCOUNTER 2020-05-01 01:36 | Inpatient (IN) | payer BC, OTHER ==
[2020-05-01] MEDS ORDERED: SODIUM CHLORIDE 0.9% 1,000 ML IV ONE (01:42)
[2020-05-01 02:25] LABS: Basophils # (A) 0.1 k/uL (0-0.2); Basophils % (A) 2 %; Eosinophils % (A) 0 %; HCT 46.6 % (34.0-46.0); Lymphocytes # (A) 2.7 k/uL (1.0-4.8); Lymphocytes % (A) 48 %; MCH 31.6 pg (25.0-35.0); MCHC 34.3 g/dL (31.0-37.0); MCV 91.9 fL (80.0-100.0); Mean Platelet Volume 7.3; Monocytes # (A) 0.2 k/uL (0-1.0); Monocytes % (A) 3 %; Neutrophils # (A) 2.7 k/uL (1.3-7.7); Neutrophils % (A) 46 %; Platelet Count 209 k/uL (150-450); RBC 5.07 m/uL (3.80-5.40); RDW 11.9 % (11.5-15.5); WBC 5.7 k/uL (3.8-10.6)
[2020-05-01] MEDS ORDERED: HYDROcodone/APAP 5-325MG 1 EACH TAB PO STA (02:27)
[2020-05-01 02:42] LABS: ALT 38 U/L (4-34); AST 82 U/L (14-36); African American GFR (CKD) >90 (>60 ml/min/1.73 sqM); Albumin 5.1 g/dL (3.5-5.0); Alkaline Phosphatase 82 U/L (38-126); Anion Gap 23 mmol/L; Blood Urea Nitrogen 8 mg/dL (7-17); Carbon Dioxide 12 mmol/L (22-30); Chloride 101 mmol/L (98-107); Glucose 89 mg/dL (74-99); Magnesium 1.8 mg/dL (1.6-2.3); Non-African American GFR(CKD) >90 (>60 ml/min/1.73 sqM); Potassium 4.5 mmol/L (3.5-5.1); Sodium 136 mmol/L (137-145); Total Bilirubin 1.1 mg/dL (0.2-1.3); Total Protein 8.3 g/dL (6.3-8.2)
[2020-05-01 02:58] LABS: Alcohol 397 mg/dL
--- NOTE | 2020-05-01 03:14 | CT ---
EXAMINATION TYPE: CT cervical spine wo con DATE OF EXAM: 05/01/2020 COMPARISON: 09/28/2019 HISTORY: Arm numbness CT DLP: 306 mGycm Automated exposure control for dose reduction was used. Images were obtained from the skull base to T1 vertebra with no contrast. Cervical vertebra have normal alignment. There is plate with screws fusing anteriorly C4 and C5 verte bra. There is disc bone graft. There is some spurring in the facet joints. The posterior elements are intact. Prevertebral soft tissues appear normal. There is normal aeration of the mastoid sinuses. Th e skull base is intact. IMPRESSION: Previous surgery. Spondylotic changes in the cervical spine. Large hypertrophic anterior bridging ost eophyte at C6-7. Surgery is new compared to old exam. The remainder of the cervical spine unchanged.
[2020-05-01] MEDS ORDERED: MORPHINE SULFATE 4 MG/ML SYRINGE IV STA (04:34)
[2020-05-01 05:25] LABS: Appearance,Urine Clear (Clear); Bilirubin,Urine Negative (Negative); Blood,Urine Small (Negative); Color,Urine Light Yellow; Glucose,Urine (UA) Negative (Negative); Hyaline Casts,Urine 4 /lpf (0-2); Ketones,Urine 2+ (Negative); Leukocyte Esterase,Urine Negative (Negative); Mucus,Urine Rare /hpf; Nitrite,Urine Negative (Negative); Protein,Urine 2+ (Negative); RBC,Urine <1 /hpf (0-5); Specific Gravity,Urine 1.008 (1.001-1.035); Squamous Epithelial Cell,Urine <1 /hpf (0-4); Urobilinogen,Urine <2.0 mg/dL (<2.0); WBC,Urine 1 /hpf (0-5)
--- NOTE | 2020-05-01 05:36 | ED ---
Neck Injury/Pain HPI - General Chief Complaint: Neck Pain/Injury Stated Complaint: weakness Time Seen by Provider: 05/01/20 01:40 Mode of arrival: EMS Limitations: no limitations - History of Present Illness Initial Comments: This patient is a 60-year-old woman who presents to be evaluated for neck pain that is been going on for a couple of months now. Patient states that the pain is been getting progressively worse. She also has pain radiating to the shoulder and arm. She states that her left arm seems to be weaker. The pain is both aching and burning. There is a numbness that spreads down the arm. She has difficulty raising her left arm above shoulder level. In addition, patient complains of tingling to all 4 extremities. She does drink alcohol every day. Patient relates that she did have a cervical fusion approximately 8 months ago after she had a fall and sustaining neck injury. She is not certain his name and states surgery was at [facility]. Patient denies any acute head or neck injury. MD Complaint: neck pain -: month(s) Place: home Radiation: left lateral Severity: moderate Quality: burning, aching, tingling Consistency: constant Improves With: none Worsens With: none Associated Symptoms: tingling, weakness Treatments Prior to Arrival: none - Related Data Home Medications Medication Instructions Recorded Confirmed Aspirin [Adult Low Dose Aspirin EC] 81 mg PO DAILY 01/29/20 01/29/20 Previous Rx's Medication Instructions Recorded Ciprofloxacin Ophth Soln [Ciloxan 2 drops RIGHT EYE Q4HR ml 01/31/20 0.3% Ophth Soln] Magnesium Oxide [Mag-Ox] 200 mg PO TID #14 tab 01/31/20 Metoprolol Tartrate [Lopressor] 12.5 mg PO Q8HR #9 tab 01/31/20 Multivitamin [Multivitamins Adult 1 each PO DAILY #30 tablet 01/31/20 Gummies] Nicotine 14Mg/24Hr Patch [Habitrol] 1 patch TRANSDERM DAILY #14 patch 01/31/20 Omeprazole [PriLOSEC] 20 mg PO AC-BID #30 cap 01/31/20 Thiamine [Vitamin B-1] 100 mg PO BID-W/MEALS #30 tab 01/31/20 diazePAM [Valium] 2 mg PO TID #5 tab 01/31/20 Hydrocodone/Acetaminophen [[place] 1 each PO Q6HR PRN #12 tab 05/01/20 5-325] Allergies Allergy/AdvReac Type Severity Reaction Status Date / Time shellfish derived [Shellfish] Allergy Severe Dyspnea Verified 05/01/20 01:41 iodine Allergy Rash/Hives Verified 05/01/20 01:41 Sulfa (Sulfonamide Allergy Rash/Hives Verified 05/01/20 01:41 Antibiotics) Review of Systems ROS Statement: Those systems with pertinent positive or pertinent negative responses have been documented in the HPI. ROS Other: All systems not noted in ROS Statement are negative. Constitutional: Denies: fever, chills Eyes: Denies: vision change Respiratory: Denies: cough, dyspnea Cardiovascular: Denies: chest pain, palpitations Gastrointestinal: Denies: abdominal pain, nausea, vomiting Genitourinary: Denies: dysuria, hematuria Musculoskeletal: Denies: back pain, joint swelling, arthralgia Skin: Denies: rash Neurological: Reports: numbness, paresthesias. Denies: headache, weakness Past Medical History Past Medical History: Osteoarthritis (OA) Additional Past Medical History / Comment(s): chronic back pain, neck pain History of Any Multi-Drug Resistant Organisms: None Reported Past Surgical History: Back Surgery Additional Past Surgical History / Comment(s): oral surgery, colonoscopy x 2 , neck surgery Past Anesthesia/Blood Transfusion Reactions: No Reported Reaction Past Psychological History: No Psychological Hx Reported Smoking Status: Current every day smoker Past Alcohol Use History: Abuse, Daily, Heavy Past Drug Use History: None Reported - Past Family History Mother Family Medical History: Cancer Additional Family Medical History / Comment(s): MELENOMA General Exam Limitations: no limitations General appearance: alert, in no apparent distress, appears intoxicated Head exam: Present: atraumatic, normocephalic Eye exam: Present: normal appearance. Absent: scleral icterus, conjunctival injection ENT exam: Present: mucous membranes dry Neck exam: Present: normal inspection, full ROM. Absent: tenderness, meningismus Respiratory exam: Present: normal lung sounds bilaterally. Absent: respiratory distress, wheezes, rales, rhonchi, stridor Cardiovascular Exam: Present: regular rate, normal rhythm, normal heart sounds. Absent: systolic murmur, diastolic murmur, rubs, gallop GI/Abdominal exam: Present: soft. Absent: distended, tenderness, guarding, rebound, rigid, mass Extremities exam: Present: normal inspection, normal capillary refill. Absent: pedal edema, calf tenderness Back exam: Present: normal inspection. Absent: CVA tenderness (R), CVA tenderness (L), paraspinal tenderness, vertebral tenderness Neurological exam: Present: alert. Absent: motor sensory deficit Skin exam: Present: warm, dry, intact, normal color. Absent: rash Course Vital Signs 05/01/20 05/01/20 01:38 05:53 Temperature 98.2 F Pulse Rate 89 94 Respiratory 20 18 Rate Blood Pressure 113/92 132/81 O2 Sat by Pulse 98 96 Oximetry Medical Decision Making - Medical Decision Making This patient is a 60-year-old woman presenting with complaint of worsening neck and left shoulder pain for the past approximately 2 months. She also is having difficulty with extension of the left arm. On the exam today she is having trouble raising arm above approximately 45. In addition, patient has elevated alcohol level and appears to be impending DTs. We'll admit patient to place on the CIWA protocol and also to have consultation regarding neck/Shoulder - Lab Data Result diagrams: 05/01/20 01:55 05/01/20 01:55 Lab Results 05/01/20 05/01/20 05/01/20 Range/Units 01:55 01:55 01:55 WBC 5.7 (3.8-10.6) k/uL RBC 5.07 (3.80-5.40) m/uL Hgb 16.0 (11.4-16.0) gm/dL Hct 46.6 H (34.0-46.0) % MCV 91.9 (80.0-100.0) fL MCH 31.6 (25.0-35.0) pg MCHC 34.3 (31.0-37.0) g/dL RDW 11.9 (11.5-15.5) % Plt Count 209 (150-450) k/uL Neutrophils % 46 % Lymphocytes % 48 % Monocytes % 3 % Eosinophils % 0 % Basophils % 2 % Neutrophils # 2.7 (1.3-7.7) k/uL Lymphocytes # 2.7 (1.0-4.8) k/uL Monocytes # 0.2 (0-1.0) k/uL Eosinophils # 0.0 (0-0.7) k/uL Basophils # 0.1 (0-0.2) k/uL Sodium 136 L (137-145) mmol/L Potassium 4.5 (3.5-5.1) mmol/L Chloride 101 (98-107) mmol/L Carbon Dioxide 12 L (22-30) mmol/L Anion Gap 23 mmol/L BUN 8 (7-17) mg/dL Creatinine 0.49 L (0.52-1.04) mg/dL Est GFR (CKD-EPI)AfAm >90 (>60 ml/min/1.73 sqM) Est GFR (CKD-EPI)NonAf >90 (>60 ml/min/1.73 sqM) Glucose 89 (74-99) mg/dL Calcium 9.0 (8.4-10.2) mg/dL Magnesium 1.8 (1.6-2.3) mg/dL Total Bilirubin 1.1 (0.2-1.3) mg/dL AST 82 H (14-36) U/L ALT 38 H (4-34) U/L Alkaline Phosphatase 82 (38-126) U/L Total Protein 8.3 H (6.3-8.2) g/dL Albumin 5.1 H (3.5-5.0) g/dL Urine Color Light Yellow Urine Appearance Clear (Clear) Urine pH 6.0 (5.0-8.0) Ur Specific [place] 1.008 (1.001-1.035) Urine Protein 2+ H (Negative) Urine Glucose (UA) Negative (Negative) Urine Ketones 2+ H (Negative) Urine Blood Small H (Negative) Urine Nitrite Negative (Negative) Urine Bilirubin Negative (Negative) Urine Urobilinogen <2.0 (<2.0) mg/dL Ur Leukocyte Esterase Negative (Negative) Urine RBC <1 (0-5) /hpf Urine WBC 1 (0-5) /hpf Ur Squamous Epith Cells <1 (0-4) /hpf Hyaline Casts 4 H (0-2) /lpf Urine Mucus Rare H (None) /hpf Serum Alcohol 397 H* mg/dL Disposition Clinical Impression: Alcohol intoxication, Neck pain Disposition: ADMITTED IP TO THIS [facility] Condition: Fair Instructions (If sedation given, give patient instructions): Chronic Neck Pain (DC) Prescriptions: Hydrocodone/Acetaminophen [[place] 5-325] 1 each PO Q6HR PRN #12 tab PRN Reason: Pain Is patient prescribed a controlled substance at d/c from ED?: Yes When asked, does pt state using other controlled substances?: No If prescribed controlled substance>3 days was MAPS reviewed?: Prescribed <3 Days If opioid is for acute pain is fill amount 7 days or less?: Yes If Rx opioid, was Start Talking consent form obtained?: Yes Referrals: Tati Mcfadden DO [Doctor of Osteopathic Medicine] - 1-2 days Danny Ogden DO [STAFF PHYSICIAN] - 1-2 days
[2020-05-01] MEDS ORDERED: NALOXONE 0.4 MG/ML 1 ML VIAL IV PRN (06:01)
[2020-05-01] MEDS ORDERED: LORazepam 2 MG/ML INJ IV PRN ×2 (06:01)
[2020-05-01] MEDS ORDERED: ONDANSETRON 4 MG/2 ML VIAL IVP STA (06:07)
[2020-05-01] MEDS: SODIUM CHLORIDE 0.9% 1,000 ML IV SCH ×2 (06:24→14:32)
[2020-05-01] MEDS: LORazepam 2 MG/ML INJ IV PRN ×6 (06:29→22:26)
[2020-05-01] MEDS ORDERED: THIAMINE 100 MG TAB PO SCH (07:30)
[2020-05-01] MEDS: PANTOPRAZOLE 40 MG TABLET PO SCH ×3 (07:55→14:31)
[2020-05-01] MEDS: THIAMINE 100 MG TAB PO SCH ×3 (07:56→14:31)
[2020-05-01] MEDS: METOPROLOL TARTRATE 12.5 MG TAB PO SCH ×4 (07:56→22:30)
[2020-05-01] MEDS: ASPIRIN 81 MG PO SCH ×2 (07:56→09:10)
[2020-05-01] MEDS: MAGNESIUM OXIDE 400 MG TAB PO SCH ×3 (07:56→14:31)
[2020-05-01] MEDS: NICOTINE 14MG/24HR PATCH TRANSDERM SCH (07:57)
[2020-05-01] MEDS ORDERED: ASPIRIN-ACET-CAFF 250-250-65MG 1 EACH TAB PO PRN (08:25)
[2020-05-01] MEDS: CALCIUM CARBONATE 500 MG CHEWABLE PO SCH (08:32)
[2020-05-01] MEDS: CHOLECALCIFEROL 1,000 UNIT TAB PO SCH (08:32)
[2020-05-01] MEDS: MULTIVITAMINS, THERA 1 EACH TAB PO SCH (08:32)
[2020-05-01] MEDS: GABAPENTIN 300 MG CAP PO SCH ×2 (08:38→20:00)
[2020-05-01] MEDS: HYDROcodone/APAP 5-325MG 1 EACH TAB PO PRN ×3 (08:38→19:58)
[2020-05-01] MEDS ORDERED: NON FORMULARY DRUG (Vitamin B Complex [Vitamin B Complex] 1 CAP) PO SCH (09:00)
[2020-05-01] MEDS ORDERED: MULTIVITAMINS, THERA 1 EACH TAB PO SCH (09:00)
[2020-05-01] MEDS ORDERED: ACETAMINOPHEN TAB 500 MG TAB PO PRN (13:19)
--- NOTE | 2020-05-01 14:27 | P.CNOR ---
History of Present Illness - HPI Consult date: 05/01/20 Consult reason: neck pain History of present illness: Patient is seen and examined at bedside. She is a pleasant 60-year-old female who has been having trouble with her neck and arm for the past 8 or 9 months. A pparently she had a fall and had an injury to her neck and upper extremity. She went to [facility] and was evaluated and seen. She ultimately underwent surgical intervention on her cervical spine at [facility] in September of this year. She underwent anterior cervical discectomy with decompression and fusion at C3-4. She says she has been able to follow up with a couple of times and was told to get regular x-rays. The patient continues to have significant symptoms at her neck and her upper extremities. She denies any new weakness. She denies any new injuries denies any new pain. She has had chronic pain since that time. Review of Systems As per HPI. She denies any new weakness or neurologic change in her upper extremity is. She has continued pain in her left shoulder particularly with elevation above shoulder level. She feels her neck is healing appropriately. Past Medical History Past Medical History: Osteoarthritis (OA) Additional Past Medical History / Comment(s): Fall September 2019 with neck injury/L arm weak/decreased sensation and weakness to L leg-sent to [facility] and had cervical surgery, chronic cervical/L shoulder pain since surgery, chronic low back pain for years, ETOH abuse-pt states she has had withdrawals/shaking/weakness/nausea/one seizure long ago, alcoholic hepatitis, 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 History of Any Multi-Drug Resistant Organisms: None Reported Past Surgical History: Back Surgery Additional Past Surgical History / Comment(s): Cervical surgery at [facility] d/t injury, colonoscopies/benign polypectomy Past Anesthesia/Blood Transfusion Reactions: No Reported Reaction, Motion Sickness Additional Past Anesthesia/Blood Transfusion Reaction / Comm: PT has clausterphobia. Smoking Status: Light tobacco smoker - Past Family History Mother Family Medical History: Cancer Additional Family Medical History / Comment(s): Mother of melanoma Father Family Medical History: No Reported History Additional Family Medical History / Comment(s): Father is healthy Medications and Allergies Home Medications Medication Instructions Recorded Confirmed Type [id number] 1 - 2 tab PO Q4HR PRN 05/01/20 05/01/20 History [Excedrin] Calcium Carbonate [Calcium] 600 mg PO DAILY 05/01/20 05/01/20 History Cholecalciferol [Vitamin D3 (25 1,000 unit PO DAILY 05/01/20 05/01/20 History Mcg = 1000 Iu)] Fexofenadine/Pseudoephedrine 1 tab PO DAILY 05/01/20 05/01/20 History [Katarzyna-D 24 Hour Tablet] Gabapentin [Neurontin] 300 mg PO BID 05/01/20 05/01/20 History Hydrocodone/Acetaminophen [[place] 1 each PO Q6HR PRN #12 tab 05/01/20 Rx 5-325] Magnesium 250 mg PO DAILY 05/01/20 05/01/20 History Multivitamins, Thera [Multivitamin 1 tab PO DAILY 05/01/20 05/01/20 History (formulary)] Vitamin B Complex 1 cap PO DAILY 05/01/20 05/01/20 History Allergies Allergy/AdvReac Type Severity Reaction Status Date / Time shellfish derived [Shellfish] Allergy Severe Dyspnea Verified 05/01/20 07:28 iodine Allergy Rash/Hives Verified 05/01/20 07:28 Sulfa (Sulfonamide Allergy Rash/Hives Verified 05/01/20 07:28 Antibiotics) Physical Examination Osteopathic Statement: *. No significant issues noted on an osteopathic structural exam other than those noted in the History and Physical/Consult. - C Spine: dermatomal strength & reflexes bilateral Shoulder strength: abduction: 4/5 (At her neck her incision site appears to be healing well. Her neck is supple and soft. Her upper extremities at her left upper extremity she has some increased pain with elevation of her left arm over shoulder height. When she abducts she has increased pain at her left shoulder. Her sensory is intact in her hand or fingers. She is able to move her wrist hand and fingers appropriately. Right upper extremity has good active passive range of motion. Her lower extremities have good active passive range motion.) Results - Labs Labs: Abnormal Lab Results - Last 24 Hours (Table) 05/01/20 05/01/20 05/01/20 Range/Units 01:55 01:55 01:55 Hct 46.6 H (34.0-46.0) % Sodium 136 L (137-145) mmol/L Carbon Dioxide 12 L (22-30) mmol/L Creatinine 0.49 L (0.52-1.04) mg/dL AST 82 H (14-36) U/L ALT 38 H (4-34) U/L Total Protein 8.3 H (6.3-8.2) g/dL Albumin 5.1 H (3.5-5.0) g/dL Urine Protein 2+ H (Negative) Urine Ketones 2+ H (Negative) Urine Blood Small H (Negative) Hyaline Casts 4 H (0-2) /lpf Urine Mucus Rare H (None) /hpf Serum Alcohol 397 H* mg/dL H & H 05/01/20 Range/Units 01:55 Hgb 16.0 (11.4-16.0) gm/dL Hct 46.6 H (34.0-46.0) % Result Diagrams: 05/01/20 01:55 05/01/20 01:55 - Diagnostic results CT scan - cervical: report reviewed, image reviewed (Cervical computed tomography scan shows prior anterior cervical decompression with discectomy and fusion at C3 4 the hardware appears intact and adequately placed. There is some disc degeneration at C4 5 C5 6 and some osteophytes. There is no evidence of any new injury or trauma.) Assessment and Plan Assessment: Recent history of anterior cervical decompression with discectomy and fusion at C3 4 which was performed at [facility] Recent history of injury in September 2019 which led to her cervical D compression and fusion at her Light Chronic pain at the left upper extremity and arm and shoulder due to her injury Apparent stable construct at C3 4 status post surgery at [facility] in September Plan: Recent history of anterior cervical decompression with discectomy and fusion at C3 4 which was performed at [facility] Recent history of injury in September 2019 which led to her cervical D compression and fusion at her Light Chronic pain at the left upper extremity and arm and shoulder due to her injury Apparent stable construct at C3 4 status post surgery at [facility] in September In terms the patient's cervical spine and left upper extremity symptoms, her surgery seems to be appropriate and stable. She is still relatively new from her injury and should continue her follow-up with her surgeon at [facility]. The construct appears to be stable and I would not plan any further imaging or specific intervention at this point. She continues to have significant symptoms particularly at her left shoulder and arm from her injury for which she underwent surgery. She is not having acute neurologic deficit and I would not plan further intervention or surgery at this point. She should continue with her conservative treatment and management and she continues to rehabilitate after her surgery. It is okay from a spine standpoint for her to be discharged home and for her to follow-up with her own spine surgeon at [facility]. I discussed this with her and answered her questions best my ability and she understands.
--- NOTE | 2020-05-01 15:07 | HP ---
HISTORY AND PHYSICAL DATE OF SERVICE: 05/01/2020. CHIEF COMPLAINT: Bilateral arm numbness and as well as alcohol intoxication. HISTORY OF PRESENT ILLNESS: This is a 60-year-old woman with a past medical history of multiple medical problems, history of DJD, history of fall with neck injury had surgery at [facility], history of EtOH, history of back surgery, history of DJD, anxiety, depression, being followed by Dr. Ogden in the outpatient setting was previously admitted with alcohol intoxication, alcohol issues, but currently the patient is complaining of bilateral arm numbness and the patient also was drinking heavily at least a fifth of alcohol and the patient came to [facility] and admitted for further evaluation and treatment. The patient had features of alcoholic hepatitis and alcohol level of [address] was done which showed evidence of previous surgery and spondylitic changes and large hypertrophic anterior bridging osteophyte at C6-7, also. Consultation with Dr. Mcfadden is in progress. There is no history of fever, rigors or chills. No history of headache, loss of consciousness or seizures. PAST MEDICAL HISTORY: History of ETOH, history of DJD, history of previous cervical spine surgery. MEDICATIONS: Prior to admission include: 1. Neurontin 300 mg p.o. b.i.d. 2. Vitamin D3 1000 daily. 3. Calcium 600 mg p.o. daily. 4. Vitamin B12 one p.o. daily. 5. Multivitamins one p.o. daily. 6. Magnesium 250 mg p.o. daily. 7. Excedrin 1 to 2 tabs q.4h p.r.n. 8. Katarzyna-D 1 tablet p.o. daily. 9. Alba 1 tablet q.6 p.r.n. ALLERGIES: SHELLFISH, IODINE, SULFA. FAMILY HISTORY: History of cancer, melanoma. SOCIAL HISTORY: History of smoking. History of alcohol intake. REVIEW OF SYSTEMS: ENT: No diminished vision. No diminished hearing. CARDIOVASCULAR: No angina or palpitations. RESPIRATION: As mentioned earlier. GI no nausea or vomiting. no dysuria. NERVOUS SYSTEM: As mentioned earlier. ALLERGY/IMMUNOLOGY: No asthma or hayfever. MUSCULOSKELETAL: As mentioned earlier. HEMATOLOGY/ONCOLOGY: No history of anemia. ENDOCRINE: No history of diabetes or hypothyroidism. CONSTITUTIONAL: As mentioned earlier. DERMATOLOGY: Negative. RHEUMATOLOGY: Negative. PSYCHIATRY: As mentioned earlier. PHYSICAL EXAM: Patient is alert, oriented x3. The pulse is 86, blood pressure 130/60, respirations 17, temperature 98 degrees, pulse ox 94% on room air. HEENT is conjunctivae normal. Oral mucosa moist. NECK is no jugular venous distention. No carotid bruit. No lymph node enlargement. CARDIOVASCULAR: S1, S2. RESPIRATORY: Breath sounds diminished in the bases. A few scattered rhonchi. No crackles. ABDOMEN: Soft, nontender. No mass palpable. LEGS: No edema. No swelling. NERVOUS SYSTEM: Higher functions as mentioned earlier. Moves all 4 limbs. No focal motor deficits. Lymphatics: No lymph nodes palpable in the neck, axillae or groin. SKIN: No ulcer, no rash. No bleeding. JOINTS: No active deforming arthropathy. Neck movements slightly painful. LAB: WBC 5.7, hemoglobin 16, sodium 136. Other labs are reviewed. AST is 82 and ALT is 38. Alcohol is 397. ASSESSMENT: 1. Acute alcohol intoxication, acute delirium tremens. 2. Change in mental status, acute metabolic encephalopathy. 3. Cervical pain and bilateral numbness, cervical degenerative joint disease. 4. Recent spine surgery at [facility]. 5. Large hypertrophic anterior bridging osteophytes, C6-C7. 6. History of degenerative joint disease. 7. History of alcohol withdrawal seizures. 8. History alcoholic myopathy. 9. History of pyelonephritis. 10.Colonic polyps. 11.Anxiety/depression. 12.History of nicotine dependence. 13.FULL CODE. RECOMMENDATIONS AND DISCUSSION: This 60-year-old woman who presented with multiple complex medical issues, we will monitor the patient closely, continue the current medications, symptomatic treatment. Otherwise, [facility] protocol. Supplement vitamins. Orthopedic surgery consultation. Symptomatic treatment of the pain. The prognosis guarded because of multiple complex medical issues. Social work consultation. Case management to arrange for alcohol rehab outpatient. Prognosis guarded. Further recommendations to follow. A copy of dictation being forwarded to Dr. Ogden who is the primary physician. [id number] / CHARLESN: [id number] /
[2020-05-01 16:38] LABS: Appearance,Urine Clear (Clear); Bilirubin,Urine Negative (Negative); Blood,Urine Trace (Negative); Color,Urine Yellow; Glucose,Urine (UA) Negative (Negative); Hyaline Casts,Urine 11 /lpf (0-2); Ketones,Urine 3+ (Negative); Leukocyte Esterase,Urine Negative (Negative); Mucus,Urine Rare /hpf; Nitrite,Urine Negative (Negative); PH, Urine 5.5 (5.0-8.0); Protein,Urine 1+ (Negative); RBC,Urine <1 /hpf (0-5); Specific Gravity,Urine 1.019 (1.001-1.035); Urobilinogen,Urine <2.0 mg/dL (<2.0); WBC,Urine 1 /hpf (0-5)
[2020-05-01] MEDS: HEPARIN SODIUM,PORCINE 5,000 UNIT/ML 1 ML VIAL SQ SCH (19:58)
[2020-05-02] MEDS: TEMAZEPAM 15 MG CAP PO PRN ×2 (00:30→22:44)
[2020-05-02] MEDS: HYDROcodone/APAP 5-325MG 1 EACH TAB PO PRN ×4 (01:11→20:14)
[2020-05-02] MEDS: SODIUM CHLORIDE 0.9% 1,000 ML IV SCH ×3 (04:46→22:45)
[2020-05-02 08:30] LABS: Basophils % (A) 1 %; Eosinophils # (A) 0.2 k/uL (0-0.7); Eosinophils % (A) 4 %; HCT 41.6 % (34.0-46.0); Lymphocytes # (A) 1.8 k/uL (1.0-4.8); Lymphocytes % (A) 36 %; MCH 31.5 pg (25.0-35.0); MCHC 33.7 g/dL (31.0-37.0); MCV 93.5 fL (80.0-100.0); Mean Platelet Volume 7.8; Monocytes # (A) 0.2 k/uL (0-1.0); Monocytes % (A) 4 %; Neutrophils # (A) 2.8 k/uL (1.3-7.7); Neutrophils % (A) 54 %; Platelet Count 114 k/uL (150-450); RBC 4.45 m/uL (3.80-5.40); RDW 11.9 % (11.5-15.5); WBC 5.1 k/uL (3.8-10.6)
[2020-05-02] MEDS: PANTOPRAZOLE 40 MG TABLET PO SCH ×2 (08:36→17:42)
[2020-05-02] MEDS: METOPROLOL TARTRATE 12.5 MG TAB PO SCH ×3 (08:36→23:43)
[2020-05-02] MEDS: MULTIVITAMINS, THERA 1 EACH TAB PO SCH (08:36)
[2020-05-02] MEDS: CHOLECALCIFEROL 1,000 UNIT TAB PO SCH (08:36)
[2020-05-02] MEDS: ASPIRIN 81 MG PO SCH (08:36)
[2020-05-02] MEDS: CALCIUM CARBONATE 500 MG CHEWABLE PO SCH (08:36)
[2020-05-02] MEDS: THIAMINE 100 MG TAB PO SCH ×2 (08:36→17:42)
[2020-05-02] MEDS: GABAPENTIN 300 MG CAP PO SCH ×2 (08:36→20:15)
[2020-05-02] MEDS: NICOTINE 14MG/24HR PATCH TRANSDERM SCH (08:37)
[2020-05-02 08:39] LABS: ALT 35 U/L (4-34); AST 57 U/L (14-36); African American GFR (CKD) >90 (>60 ml/min/1.73 sqM); Alkaline Phosphatase 64 U/L (38-126); Anion Gap 7 mmol/L; Blood Urea Nitrogen 5 mg/dL (7-17); Calcium 8.7 mg/dL (8.4-10.2); Carbon Dioxide 28 mmol/L (22-30); Chloride 98 mmol/L (98-107); Glucose 87 mg/dL (74-99); Non-African American GFR(CKD) >90 (>60 ml/min/1.73 sqM); Potassium 3.7 mmol/L (3.5-5.1); Sodium 133 mmol/L (137-145); Total Bilirubin 1.5 mg/dL (0.2-1.3); Total Protein 6.6 g/dL (6.3-8.2)
[2020-05-02] MEDS: HEPARIN SODIUM,PORCINE 5,000 UNIT/ML 1 ML VIAL SQ SCH ×2 (08:43→20:15)
[2020-05-02] MEDS: MAGNESIUM OXIDE 400 MG TAB PO SCH (08:47)
[2020-05-02] MEDS ORDERED: LORATADINE-PSEUDOEPH 5-120 MG 1 EACH TAB.ER.12H PO PRN (09:00)
[2020-05-02] MEDS: LORazepam 2 MG/ML INJ IV PRN ×2 (10:16→16:56)
[2020-05-02] MEDS: FOLIC ACID 1 MG TAB PO SCH (13:07)
[2020-05-02 15:16] VITALS: BMI 23.6
[2020-05-03] MEDS: HYDROcodone/APAP 5-325MG 1 EACH TAB PO PRN ×4 (02:09→20:00)
[2020-05-03] MEDS: GABAPENTIN 300 MG CAP PO SCH ×2 (07:59→19:59)
[2020-05-03] MEDS: METOPROLOL TARTRATE 12.5 MG TAB PO SCH ×3 (07:59→23:56)
[2020-05-03] MEDS: FOLIC ACID 1 MG TAB PO SCH (07:59)
[2020-05-03] MEDS: CALCIUM CARBONATE 500 MG CHEWABLE PO SCH (07:59)
[2020-05-03] MEDS: PANTOPRAZOLE 40 MG TABLET PO SCH ×2 (07:59→16:38)
[2020-05-03] MEDS: THIAMINE 100 MG TAB PO SCH ×2 (07:59→16:38)
[2020-05-03] MEDS: MULTIVITAMINS, THERA 1 EACH TAB PO SCH (07:59)
[2020-05-03] MEDS: ASPIRIN 81 MG PO SCH (07:59)
[2020-05-03] MEDS: MAGNESIUM OXIDE 400 MG TAB PO SCH (07:59)
[2020-05-03] MEDS: CHOLECALCIFEROL 1,000 UNIT TAB PO SCH (08:00)
[2020-05-03] MEDS: HEPARIN SODIUM,PORCINE 5,000 UNIT/ML 1 ML VIAL SQ SCH ×2 (08:00→19:59)
[2020-05-03] MEDS: NICOTINE 14MG/24HR PATCH TRANSDERM SCH (08:00)
[2020-05-03 08:20] LABS: ALT 24 U/L (4-34); AST 36 U/L (14-36); African American GFR (CKD) >90 (>60 ml/min/1.73 sqM); Albumin 3.5 g/dL (3.5-5.0); Alkaline Phosphatase 59 U/L (38-126); Anion Gap 4 mmol/L; Blood Urea Nitrogen 12 mg/dL (7-17); Calcium 8.6 mg/dL (8.4-10.2); Carbon Dioxide 27 mmol/L (22-30); Chloride 103 mmol/L (98-107); Glucose 96 mg/dL (74-99); Non-African American GFR(CKD) >90 (>60 ml/min/1.73 sqM); Potassium 4.1 mmol/L (3.5-5.1); Sodium 134 mmol/L (137-145); Total Bilirubin 0.5 mg/dL (0.2-1.3)
[2020-05-03 08:34] LABS: Basophils % (A) 0 %; Eosinophils # (A) 0.2 k/uL (0-0.7); Eosinophils % (A) 5 %; HGB 13.3 gm/dL (11.4-16.0); Lymphocytes # (A) 2.1 k/uL (1.0-4.8); Lymphocytes % (A) 38 %; MCH 31.8 pg (25.0-35.0); MCHC 33.3 g/dL (31.0-37.0); MCV 95.4 fL (80.0-100.0); Monocytes # (A) 0.3 k/uL (0-1.0); Monocytes % (A) 5 %; Neutrophils # (A) 2.7 k/uL (1.3-7.7); Neutrophils % (A) 50 %; Platelet Count 104 k/uL (150-450); RBC 4.19 m/uL (3.80-5.40); WBC 5.4 k/uL (3.8-10.6)
--- NOTE | 2020-05-03 12:56 | P.PN ---
Subjective Progress Note Date: 05/02/20 Principal diagnosis: EtOH intoxication/pending withdrawal Bilateral arm numbness; possible radiculopathy/ cervical DJD Altered mental status/acute metabolic encephalopathy 60-year-old female patient admitted to the hospital with alcohol intoxication and complaining of bilateral arm numbness; patient did have elevated alcohol level and CT of cervical spine was done which showed evidence of previous surgery and spondylytic changes and large hypertrophic and DC her bridging osteo phyte at C6-7; patient is admitted for further treatment for alcohol intoxication and evaluation with orthopedic surgery Objective - Vital Signs Vital signs: Vital Signs Temp 97.8 F 05/02/20 05:22 Pulse 77 05/02/20 05:22 Resp 16 05/02/20 05:22 BP 164/100 05/02/20 05:22 Pulse Ox 99 05/02/20 05:22 Intake & Output 05/01/20 05/02/20 05/02/20 18:59 06:59 18:59 Intake Total 1180 Output Total 500 Balance -500 1180 Weight 72.575 kg Intake: Oral 1180 Output: Urine 500 Other: Voiding Method Toilet Toilet Toilet # Voids 2 3 - Exam - Constitutional General appearance: Present: average body habitus, cooperative, no acute distress - EENT Eyes: Present: anicteric sclerae, EOMI, PERRLA, normal appearance ENT: Present: hearing grossly normal, normal oropharynx Ears: bilateral: normal - Neck Neck: Present: normal ROM. Absent: lymphadenopathy, rigidity, thyromegaly Carotids: negative: bruit present Thyroid: bilateral: normal size, negative: enlarged, nodule - Respiratory Respiratory: bilateral: CTA, negative: rales, rhonchi, wheezing - Cardiovascular Rhythm: regular Heart sounds: normal: S1, S2 Abnormal Heart Sounds: Absent: systolic murmur, diastolic murmur - Gastrointestinal General gastrointestinal: Present: normal bowel sounds, soft. Absent: distended, organomegaly, tenderness - Genitourinary Genitourinary Comment(s): deferred - Integumentary Integumentary: Present: normal turgor. Absent: jaundiced, rash, ulcer - Neurologic Neurologic: Present: CNII-XII intact. Absent: focal deficits - Musculoskeletal Musculoskeletal: Present: gait normal, strength equal bilaterally - Psychiatric Psychiatric: Present: A&O x's 3, appropriate affect, intact judgment & insight - Labs CBC & Chem 7: 05/03/20 07:45 05/03/20 07:45 Labs: Abnormal Lab Results - Last 24 Hours (Table) 05/01/20 05/02/20 05/02/20 Range/Units 08:10 06:56 06:56 Plt Count 114 L (150-450) k/uL Sodium 133 L (137-145) mmol/L BUN 5 L (7-17) mg/dL Creatinine 0.38 L (0.52-1.04) mg/dL Total Bilirubin 1.5 H (0.2-1.3) mg/dL AST 57 H (14-36) U/L ALT 35 H (4-34) U/L Urine Protein 1+ H (Negative) Urine Ketones 3+ H (Negative) Urine Blood Trace H (Negative) Hyaline Casts 11 H (0-2) /lpf Urine Mucus Rare H (None) /hpf Assessment and Plan Assessment: 1. EtOH intoxication and withdrawal - Patient is started on IV fluid hydration and Cipro protocol is initiated; patient is given supplemental vitamins; case management is consulted to arrange for alcohol rehab as outpatient 2. Bilateral arm numbness/radiculopathy/cervical DJD - Patient is status post recent anterior cervical decompression with discectomy and fusion at C3-4 surgery at [facility]; CT of the cervical spine shows large hypertrophic anterior bridging osteophyte at level of C6-C7; orthopedic surgery evaluated patient and recommended follow-up with primary orth opedic surgeon at [facility] due to patient's upper extremity symptoms deemed possibly secondary to shoulder surgery; patient's surgery and cervical spine seems stable 3. Altered mental status/acute metabolic encephalopathy secondary to 1; resolved 4. Peripheral neuropathy; Neurontin 300 mg by mouth twice a day 5. Nicotine abuse; counseling done DVT prophylaxis; SCDs CODE STATUS; full code
[2020-05-03] MEDS: SODIUM CHLORIDE 0.9% 1,000 ML IV SCH ×3 (14:02→23:08)
[2020-05-03] MEDS: LORazepam 2 MG/ML INJ IV PRN (16:42)
[2020-05-03 20:32] VITALS: RESP 16
[2020-05-03] MEDS: TEMAZEPAM 15 MG CAP PO PRN (23:08)
[2020-05-04] MEDS: HYDROcodone/APAP 5-325MG 1 EACH TAB PO PRN ×4 (04:13→23:23)
[2020-05-04 07:36] LABS: ALT 31 U/L (4-34); AST 42 U/L (14-36); African American GFR (CKD) >90 (>60 ml/min/1.73 sqM); Albumin 3.5 g/dL (3.5-5.0); Alkaline Phosphatase 50 U/L (38-126); Anion Gap 4 mmol/L; Blood Urea Nitrogen 9 mg/dL (7-17); Calcium 8.5 mg/dL (8.4-10.2); Carbon Dioxide 27 mmol/L (22-30); Chloride 103 mmol/L (98-107); Glucose 90 mg/dL (74-99); Non-African American GFR(CKD) >90 (>60 ml/min/1.73 sqM); Potassium 3.8 mmol/L (3.5-5.1); Sodium 134 mmol/L (137-145); Total Bilirubin 0.5 mg/dL (0.2-1.3); Total Protein 5.9 g/dL (6.3-8.2)
[2020-05-04 07:55] LABS: Basophils % (A) 1 %; Eosinophils # (A) 0.2 k/uL (0-0.7); Eosinophils % (A) 4 %; HCT 38.9 % (34.0-46.0); Lymphocytes % (A) 44 %; MCH 31.6 pg (25.0-35.0); MCHC 33.4 g/dL (31.0-37.0); MCV 94.6 fL (80.0-100.0); Mean Platelet Volume 9.4; Monocytes # (A) 0.2 k/uL (0-1.0); Monocytes % (A) 5 %; Neutrophils % (A) 45 %; RBC 4.11 m/uL (3.80-5.40); RDW 11.9 % (11.5-15.5); WBC 4.5 k/uL (3.8-10.6)
[2020-05-04] MEDS: CALCIUM CARBONATE 500 MG CHEWABLE PO SCH (07:55)
[2020-05-04] MEDS: METOPROLOL TARTRATE 12.5 MG TAB PO SCH ×3 (07:56→23:23)
[2020-05-04] MEDS: MULTIVITAMINS, THERA 1 EACH TAB PO SCH (07:56)
[2020-05-04] MEDS: MAGNESIUM OXIDE 400 MG TAB PO SCH (07:56)
[2020-05-04] MEDS: HEPARIN SODIUM,PORCINE 5,000 UNIT/ML 1 ML VIAL SQ SCH ×2 (07:56→20:01)
[2020-05-04] MEDS: THIAMINE 100 MG TAB PO SCH ×2 (07:56→16:12)
[2020-05-04] MEDS: ASPIRIN 81 MG PO SCH (07:57)
[2020-05-04] MEDS: PANTOPRAZOLE 40 MG TABLET PO SCH ×2 (07:57→16:12)
[2020-05-04] MEDS: NICOTINE 14MG/24HR PATCH TRANSDERM SCH (07:57)
[2020-05-04] MEDS: LORazepam 2 MG/ML INJ IV PRN ×4 (08:07→20:00)
[2020-05-04] MEDS: GABAPENTIN 300 MG CAP PO SCH ×2 (08:07→20:00)
[2020-05-04] MEDS: FOLIC ACID 1 MG TAB PO SCH (08:08)
[2020-05-04] MEDS: CHOLECALCIFEROL 1,000 UNIT TAB PO SCH (08:14)
[2020-05-04 08:25] LABS: Platelet Count 96 k/uL (150-450)
--- NOTE | 2020-05-04 12:45 | P.PN ---
Subjective Progress Note Date: 05/03/20 Principal diagnosis: EtOH intoxication/pending withdrawal Bilateral arm numbness; possible radiculopathy/ cervical DJD Altered mental status/acute metabolic encephalopathy 60-year-old female patient admitted to the hospital with alcohol intoxication and complaining of bilateral arm numbness; patient did have elevated alcohol level and CT of cervical spine was done which showed evidence of previous surgery and spondylytic changes and large hypertrophic and DC her bridging osteo phyte at C6-7; patient is admitted for further treatment for alcohol intoxication and evaluation with orthopedic surgery 05/03/2020 Patient is seen and evaluated in room at bedside; resting comfortably in bed; reports feeling bloated shaky but denies any chest pain or shortness of breath Vital signs are reviewed and are stable; lab reviews reveals a sodium of 134, potassium 3.8, BUN/creatinine of 9/0.35; liver enzymes are slowly trending down; total bilirubin is down to normal at 0.5 Patient remains on Ativan 0 protocol and IV fluid hydration; SENIOR SECURITY ANALYST consult in place; discharge when clinically stable Objective - Vital Signs Vital signs: Vital Signs Temp 97.8 F 05/03/20 05:40 Pulse 72 05/03/20 05:40 Resp 17 05/03/20 05:40 BP 132/81 05/03/20 05:40 Pulse Ox 98 05/03/20 05:40 Intake & Output 05/02/20 05/03/20 05/03/20 18:59 06:59 18:59 Intake Total 1790 Balance 1790 Weight 72.575 kg Intake: Intake, IV Titration 1200 Amount Sodium Chloride 0.9% 1, 1200 000 ml @ 100 mls/hr IV . Q10H DANNI Rx#:[id number] Oral 590 Other: Voiding Method Toilet Toilet Toilet # Voids 4 3 - Exam - Constitutional General appearance: Present: average body habitus, cooperative, no acute d istress - EENT Eyes: Present: anicteric sclerae, EOMI, PERRLA, normal appearance ENT: Present: hearing grossly normal, normal oropharynx Ears: bilateral: normal - Neck Neck: Present: normal ROM. Absent: lymphadenopathy, rigidity, thyromegaly Carotids: negative: bruit present Thyroid: bilateral: normal size, negative: enlarged, nodule - Respiratory Respiratory: bilateral: CTA, negative: rales, rhonchi, wheezing - Cardiovascular Rhythm: regular Heart sounds: normal: S1, S2 Abnormal Heart Sounds: Absent: systolic murmur, diastolic murmur - Gastrointestinal General gastrointestinal: Present: normal bowel sounds, soft. Absent: distended, organomegaly, tenderness - Genitourinary Genitourinary Comment(s): deferred - Integumentary Integumentary: Present: normal turgor. Absent: jaundiced, rash, ulcer - Neurologic Neurologic: Present: CNII-XII intact. Absent: focal deficits - Musculoskeletal Musculoskeletal: Present: gait normal, strength equal bilaterally - Psychiatric Psychiatric: Present: A&O x's 3, appropriate affect, intact judgment & insight - Labs CBC & Chem 7: 05/04/20 07:08 05/04/20 07:08 Labs: Abnormal Lab Results - Last 24 Hours (Table) 05/03/20 05/03/20 Range/Units 07:45 07:45 Plt Count 104 L (150-450) k/uL Sodium 134 L (137-145) mmol/L Creatinine 0.40 L (0.52-1.04) mg/dL Total Protein 6.0 L (6.3-8.2) g/dL Assessment and Plan Assessment: 1. EtOH intoxication and withdrawal - Patient is started on IV fluid hydration and Cipro protocol is initiated; patient is given supplemental vitamins; case management is consulted to arrange for alcohol rehab as outpatient 2. Bilateral arm numbness/radiculopathy/cervical DJD - Patient is status post recent anterior cervical decompression with discectomy and fusion at C3-4 surgery at [facility]; CT of the cervical spine shows large hypertrophic anterior bridging osteophyte at level of C6-C7; orthopedic surgery evaluated patient and recommended follow-up with primary orthopedic surgeon at [facility] due to patient's upper extremity symptoms deemed possibly secondary to shoulder surgery; patient's surgery and cervical spine seems stable 3. Altered mental status/acute metabolic encephalopathy secondary to 1; resolved 4. Peripheral neuropathy; Neurontin 300 mg by mouth twice a day 5. Nicotine abuse; counseling done DVT prophylaxis; SCDs CODE STATUS; full code
[2020-05-04] MEDS: SODIUM CHLORIDE 0.9% 1,000 ML IV SCH ×2 (16:11→23:26)
[2020-05-05] MEDS: TEMAZEPAM 15 MG CAP PO PRN (00:23)
[2020-05-05 05:28] VITALS: BP 137/88; PULSE 63; TEMP 97.6
[2020-05-05] MEDS: METOPROLOL TARTRATE 12.5 MG TAB PO SCH (08:43)
[2020-05-05] MEDS: ASPIRIN 81 MG PO SCH (08:43)
[2020-05-05] MEDS: CHOLECALCIFEROL 1,000 UNIT TAB PO SCH (08:43)
[2020-05-05] MEDS: PANTOPRAZOLE 40 MG TABLET PO SCH (08:43)
[2020-05-05] MEDS: GABAPENTIN 300 MG CAP PO SCH (08:43)
[2020-05-05] MEDS: CALCIUM CARBONATE 500 MG CHEWABLE PO SCH (08:43)
[2020-05-05] MEDS: SODIUM CHLORIDE 0.9% 1,000 ML IV SCH (08:44)
[2020-05-05] MEDS: HEPARIN SODIUM,PORCINE 5,000 UNIT/ML 1 ML VIAL SQ SCH (08:44)
[2020-05-05] MEDS: THIAMINE 100 MG TAB PO SCH (08:44)
[2020-05-05] MEDS: MULTIVITAMINS, THERA 1 EACH TAB PO SCH (08:44)
[2020-05-05] MEDS: FOLIC ACID 1 MG TAB PO SCH (08:44)
[2020-05-05] MEDS: MAGNESIUM OXIDE 400 MG TAB PO SCH (08:44)
[2020-05-05] MEDS: NICOTINE 14MG/24HR PATCH TRANSDERM SCH (08:44)
[2020-05-05] MEDS: HYDROcodone/APAP 5-325MG 1 EACH TAB PO PRN (08:49)
--- NOTE | 2020-05-05 23:14 | P.DS ---
Providers Date of admission: 05/04/20 09:44 Expected date of discharge: 05/05/20 Attending physician: Radha Saldaña Primary care physician: Stated None Hospital Course: History of presenting complaint: This is a 60-year-old patient of Dr. Fong. Patient was admitted here on September 29 of this year 2019. Patient that I was admitted following a fall of alcohol intoxication. She was found to have a spinal cord concussion and transferred out to [facility]. Patient did undergo surgery at [facility] was then in rehab. Did well subsequently. Patient now presents to the ER. Has started drinking again for last few weeks. About a pint of whiskey a day. Also smokes half a pack a day. Patient's had couple of admissions for alcohol drinking problems as listed. Patient presented with neck pain progressively getting worse. Also pain radiating to the shoulder and the arm. Also tingling in the arms. She last had a redo follow-up with her orthopedic physician at [facility]. He was seen by Dr. Mao from orthopedic spine. He recommended the patient to follow-up as an outpatient at [facility]. Patient also found of alcohol intoxication and withdrawals. Treated for the same. Today-stable. Sitting up. Did tolerate her pain. Up to the bathroom. Discussed with the patient. To follow-up with her orthopedic doctor at [facility]. Advised against alcohol Consultation: Dr. Mao from orthopedics Physical examination: VITAL SIGNS: 97.6, 73, 16, 137 with 88, 97% room air GENERAL: Sitting up, awake EYES: Pupils equal. Conjunctiva normal. HEENT: External appearance of nose and ears normal, oral cavity grossly normal. NECK: JVD not raised; masses not palpable. HEART: First and second heart sounds are normal; no edema. LUNGS:[ Respiratory rate normal; decreased breath sounds. ABDOMEN: Soft, nontender, liver spleen not palpable, no masses palpable. PSYCH: Alert and oriented x3; mood and affect minimally anxious INVESTIGATIONS, reviewed in the clinical context: Potassium 4.5 platelet count 30 hemoglobin 10.8 creatinine 0.[address]-postsurgical changes. Assessment: -Acute alcohol intoxication, POA - alcohol withdrawal syndrome, POA -Alcohol use disorder -Chronic nicotine dependence, patient's cigarette smoker -Alcoholic hepatitis -Chronic left shoulder pain -Alcoholic myopathy, causing gait dysfunction Disposition: Home Patient Condition at Discharge: Fair Plan - Discharge Summary Discharge Rx Participant: No New Discharge Prescriptions: New Hydrocodone/Acetaminophen [[place] 5-325] 1 each PO Q6HR PRN #12 tab PRN Reason: Pain Nicotine 14Mg/24Hr Patch [Habitrol] 1 patch TRANSDERM DAILY #14 patch Thiamine [Vitamin B-1] 100 mg PO BID-W/MEALS #30 tab Continue Gabapentin [Neurontin] 300 mg PO BID Cholecalciferol [Vitamin D3 (25 Mcg = 1000 Iu)] 1,000 unit PO DAILY Calcium Carbonate [Calcium] 600 mg PO DAILY Vitamin B Complex 1 cap PO DAILY Multivitamins, Thera [Multivitamin (formulary)] 1 tab PO DAILY Magnesium 250 mg PO DAILY [id number] [phone] [Excedrin] 1 - 2 tab PO Q4HR PRN PRN Reason: Pain Fexofenadine/Pseudoephedrine [Katarzyna-D 24 Hour Tablet] 1 tab PO DAILY Discharge Medication List [id number] [phone] [Excedrin] 1 - 2 tab PO Q4HR PRN 05/01/20 [History] Calcium Carbonate [Calcium] 600 mg PO DAILY 05/01/20 [History] Cholecalciferol [Vitamin D3 (25 Mcg = 1000 Iu)] 1,000 unit PO DAILY 05/01/20 [History] Fexofenadine/Pseudoephedrine [Katarzyna-D 24 Hour Tablet] 1 tab PO DAILY 05/01/20 [History] Gabapentin [Neurontin] 300 mg PO BID 05/01/20 [History] Hydrocodone/Acetaminophen [[place] 5-325] 1 each PO Q6HR PRN #12 tab 05/01/20 [Rx] Magnesium 250 mg PO DAILY 05/01/20 [History] Multivitamins, Thera [Multivitamin (formulary)] 1 tab PO DAILY 05/01/20 [History] Vitamin B Complex 1 cap PO DAILY 05/01/20 [History] Nicotine 14Mg/24Hr Patch [Habitrol] 1 patch TRANSDERM DAILY #14 patch 05/05/20 [Rx] Thiamine [Vitamin B-1] 100 mg PO BID-W/MEALS #30 tab 05/05/20 [Rx] Follow up Appointment(s)/Referral(s): Danny Ogden DO [STAFF PHYSICIAN] - 1-2 days (office to call you with appt. date and time) Tati Mcfadden DO [Doctor of Osteopathic Medicine] - 1-2 days (Please call your PCP for a referral. after referral please call office to set up appt.) Patient Instructions/Handouts: Chronic Neck Pain (DC) Discharge Disposition: HOME SELF-CARE
== END 2020-05-05 13:52 | disposition home or self-care (01) | DRG 897 ==
LOC: EC 01:36 → 5NMEDONC 07:15 → OBSVTOIN 05-04 09:44
PROVIDERS: ADMIT Hospitalist; ATTEND Hospitalist
DX: F10.231 Alcohol dependence with withdrawal delirium (principal); G72.1 Alcoholic myopathy; G31.2 Degeneration of nervous system due to alcohol; K70.10 Alcoholic hepatitis without ascites; F10.220 Alcohol dependence with intoxication, uncomplicated; M19.90 Unspecified osteoarthritis, unspecified site; R40.2362 Coma scale, best motor response, obeys commands, at arrival to emergency department; R40.2142 Coma scale, eyes open, spontaneous, at arrival to emergency department; R40.2252 Coma scale, best verbal response, oriented, at arrival to emergency department; G89.29 Other chronic pain; F17.210 Nicotine dependence, cigarettes, uncomplicated; F41.9 Anxiety disorder, unspecified; F32.9 Major depressive disorder, single episode, unspecified; M25.78 Osteophyte, vertebrae; M47.22 Other spondylosis with radiculopathy, cervical region; G62.9 Polyneuropathy, unspecified; M25.512 Pain in left shoulder; R26.9 Unspecified abnormalities of gait and mobility; M54.5 Low back pain; Y90.8 Blood alcohol level of 240 mg/100 ml or more; Z79.899 Other long term (current) drug therapy; Z87.440 Personal history of urinary (tract) infections; Z91.81 History of falling; Z87.828 Personal history of other (healed) physical injury and trauma; Z98.1 Arthrodesis status; Z86.010 Personal history of colon polyps; Z98.890 Other specified postprocedural states; Z88.2 Allergy status to sulfonamides; Z88.8 Allergy status to other drugs, medicaments and biological substances; Z91.013 Allergy to seafood; Z80.8 Family history of malignant neoplasm of other organs or systems
CPT/HCPCS: 36415; 72125; 80053; 80320; 81001; 83735; 85025; 96361; 96374; 96375; 99285

== ENCOUNTER 2020-06-19 03:30 | Emergency (ER) | payer BC, OTHER ==
[2020-06-19 03:38] VITALS: TEMP 97.9
[2020-06-19] MEDS ORDERED: MORPHINE SULFATE 4 MG/ML SYRINGE IV STA (03:54)
[2020-06-19] MEDS ORDERED: ONDANSETRON 4 MG/2 ML VIAL IVP STA (03:54)
--- NOTE | 2020-06-19 04:02 | ED ---
Abdominal Pain HPI - General Chief Complaint: Abdominal Pain Stated Complaint: Abd Pain Time Seen by Provider: 06/19/20 03:32 Source: patient, EMS Mode of arrival: EMS Limitations: no limitations - History of Present Illness MD Complaint: abdominal pain Onset/Timin -: hour(s) Location: RUQ Radiation: none Migration to: no migration Severity: moderate Quality: other (Squeezing) Consistency: constant Improves With: nothing Worsens With: nothing Associated Symptoms: nausea - Related Data Home Medications Medication Instructions Recorded Confirmed [id number] [phone] 1 - 2 tab PO Q4HR PRN 05/01/20 05/01/20 [Excedrin] Calcium Carbonate [Calcium] 600 mg PO DAILY 05/01/20 05/01/20 Cholecalciferol [Vitamin D3 (25 1,000 unit PO DAILY 05/01/20 05/01/20 Mcg = 1000 Iu)] Fexofenadine/Pseudoephedrine 1 tab PO DAILY 05/01/20 05/01/20 [Katarzyna-D 24 Hour Tablet] Gabapentin [Neurontin] 300 mg PO BID 05/01/20 05/01/20 Magnesium 250 mg PO DAILY 05/01/20 05/01/20 Multivitamins, Thera [Multivitamin 1 tab PO DAILY 05/01/20 05/01/20 (formulary)] Vitamin B Complex 1 cap PO DAILY 05/01/20 05/01/20 Previous Rx's Medication Instructions Recorded Hydrocodone/Acetaminophen [Prompton 1 each PO Q6HR PRN #12 tab 05/01/20 5-325] Nicotine 14Mg/24Hr Patch [Habitrol] 1 patch TRANSDERM DAILY #14 patch 05/05/20 Thiamine [Vitamin B-1] 100 mg PO BID-W/MEALS #30 tab 05/05/20 Cephalexin [Keflex] 500 mg PO Q6HR 1 Days #20 cap 06/19/20 Allergies Allergy/AdvReac Type Severity Reaction Status Date / Time shellfish derived [Shellfish] Allergy Severe Dyspnea Verified 06/19/20 03:38 iodine Allergy Rash/Hives Verified 06/19/20 03:38 Sulfa (Sulfonamide Allergy Rash/Hives Verified 06/19/20 03:38 Antibiotics) Review of Systems ROS Statement: Those systems with pertinent positive or pertinent negative responses have been documented in the HPI. ROS Other: All systems not noted in ROS Statement are negative. Constitutional: Denies: fever, chills Respiratory: Denies: cough, dyspnea Cardiovascular: Denies: chest pain, palpitations Gastrointestinal: Reports: abdominal pain, nausea. Denies: vomiting, diarrhea, constipation, melena, hematochezia Genitourinary: Denies: dysuria, frequency, hematuria Musculoskeletal: Denies: back pain Skin: Denies: rash Neurological: Denies: headache, weakness, numbness Past Medical History Past Medical History: Osteoarthritis (OA) Additional Past Medical History / Comment(s): FallSeptember 2019 with neck injury/L arm weak/decreased sensation and weakness to L leg-sent to [facility] and had cervical surgery, chronic cervical/L shoulder pain since surgery, chronic low ba ck pain for years, ETOH abuse-pt states she has had withdrawals/shaking/weakness/nausea/one seizure long ago, alcoholic hepatitis, 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 History of Any Multi-Drug Resistant Organisms: None Reported Past Surgical History: Back Surgery Additional Past Surgical History / Comment(s): Cervical surgery at [facility] d/t injury, colonoscopies/benign polypectomy Past Anesthesia/Blood Transfusion Reactions: No Reported Reaction, Motion Sickness Additional Past Anesthesia/Blood Transfusion Reaction / Comment(s): PT has clausterphobia. Past Psychological History: Anxiety, Depression Smoking Status: Light tobacco smoker - Past Family History Mother Family Medical History: Cancer Additional Family Medical History / Comment(s): Mother of melanoma Father Family Medical History: No Reported History Additional Family Medical History / Comment(s): Father is healthy General Exam Limitations: no limitations General appearance: alert, in no apparent distress Head exam: Present: atraumatic, normocephalic Eye exam: Present: normal appearance. Absent: scleral icterus, conjunctival injection ENT exam: Present: mucous membranes dry Respiratory exam: Present: normal lung sounds bilaterally. Absent: respiratory distress, wheezes, rales, rhonchi, stridor Cardiovascular Exam: Present: regular rate, normal rhythm, normal heart sounds. Absent: systolic murmur, diastolic murmur, rubs, gallop GI/Abdominal exam: Present: soft, tenderness (Mild right upper quadrant tenderness without rebound or guarding), normal bowel sounds. Absent: distended, guarding, rebound, rigid, mass, pulsatile mass, hernia Extremities exam: Present: normal inspection, normal capillary refill. Absent: pedal edema, calf tenderness Back exam: Present: normal inspection. Absent: CVA tenderness (R), CVA tenderness (L) Neurological exam: Present: alert Skin exam: Present: warm, dry, intact, normal color. Absent: rash Course Vital Signs 06/19/20 03:35 Temperature 97.9 F Pulse Rate 91 Respiratory 18 Rate Blood Pressure 142/111 O2 Sat by Pulse 99 Oximetry Medical Decision Making - Lab Data Result diagrams: 06/19/20 03:57 06/19/20 03:57 Lab Results 06/19/20 06/19/20 06/19/20 Range/Units 03:57 03:57 03:57 WBC 9.9 (3.8-10.6) k/uL RBC 5.14 (3.80-5.40) m/uL Hgb 15.5 (11.4-16.0) gm/dL Hct 46.6 H (34.0-46.0) % MCV 90.6 (80.0-100.0) fL MCH 30.2 (25.0-35.0) pg MCHC 33.3 (31.0-37.0) g/dL RDW 13.2 (11.5-15.5) % Plt Count 215 D (150-450) k/uL Neutrophils % 57 % Lymphocytes % 35 % Monocytes % 4 % Eosinophils % 2 % Basophils % 1 % Neutrophils # 5.6 (1.3-7.7) k/uL Lymphocytes # 3.5 (1.0-4.8) k/uL Monocytes # 0.4 (0-1.0) k/uL Eosinophils # 0.2 (0-0.7) k/uL Basophils # 0.1 (0-0.2) k/uL Sodium 139 (137-145) mmol/L Potassium 3.9 (3.5-5.1) mmol/L Chloride 99 (98-107) mmol/L Carbon Dioxide 26 (22-30) mmol/L Anion Gap 14 mmol/L BUN 7 (7-17) mg/dL Creatinine 0.53 (0.52-1.04) mg/dL Est GFR (CKD-EPI)AfAm >90 (>60 ml/min/1.73 sqM) Est GFR (CKD-EPI)NonAf >90 (>60 ml/min/1.73 sqM) Glucose 96 (74-99) mg/dL Calcium 9.3 (8.4-10.2) mg/dL Total Bilirubin 0.7 (0.2-1.3) mg/dL AST 52 H (14-36) U/L ALT 32 (4-34) U/L Alkaline Phosphatase 83 (38-126) U/L Total Protein 8.1 (6.3-8.2) g/dL Albumin 5.0 (3.5-5.0) g/dL Amylase 57 (30-110) U/L Lipase 140 (23-300) U/L Urine Color Light Yellow Urine Appearance Clear (Clear) Urine pH 7.0 (5.0-8.0) Ur Specific [place] 1.006 (1.001-1.035) Urine Protein Trace H (Negative) Urine Glucose (UA) Negative (Negative) Urine Ketones Negative (Negative) Urine Blood Negative (Negative) Urine Nitrite Negative (Negative) Urine Bilirubin Negative (Negative) Urine Urobilinogen <2.0 (<2.0) mg/dL Ur Leukocyte Esterase Large H (Negative) Urine RBC 3 (0-5) /hpf Urine WBC 46 H (0-5) /hpf Urine WBC Clumps Few H (None) /hpf Ur Squamous Epith Cells <1 (0-4) /hpf Urine Bacteria Rare H (None) /hpf Hyaline Casts 1 (0-2) /lpf Serum Alcohol 264 H* mg/dL Disposition Clinical Impression: Urinary tract infection Disposition: HOME SELF-CARE Condition: Fair Instructions (If sedation given, give patient instructions): Urinary Tract Infection in Women (ED) Prescriptions: Cephalexin [Keflex] 500 mg PO Q6HR 1 Days #20 cap Is patient prescribed a controlled substance at d/c from ED?: No Referrals: Danny Ogden DO [Primary Care Provider] - 1-2 days
[2020-06-19] MEDS ORDERED: LORazepam 2 MG/ML INJ IV STA (04:09)
[2020-06-19 04:18] LABS: Appearance,Urine Clear (Clear); Bacteria,Urine Rare /hpf; Bilirubin,Urine Negative (Negative); Blood,Urine Negative (Negative); Color,Urine Light Yellow; Glucose,Urine (UA) Negative (Negative); Hyaline Casts,Urine 1 /lpf (0-2); Ketones,Urine Negative (Negative); Leukocyte Esterase,Urine Large (Negative); Nitrite,Urine Negative (Negative); Protein,Urine Trace (Negative); RBC,Urine 3 /hpf (0-5); Specific Gravity,Urine 1.006 (1.001-1.035); Squamous Epithelial Cell,Urine <1 /hpf (0-4); Urobilinogen,Urine <2.0 mg/dL (<2.0); WBC,Urine 46 /hpf (0-5)
[2020-06-19 04:23] LABS: Basophils # (A) 0.1 k/uL (0-0.2); Basophils % (A) 1 %; Eosinophils # (A) 0.2 k/uL (0-0.7); Eosinophils % (A) 2 %; HCT 46.6 % (34.0-46.0); HGB 15.5 gm/dL (11.4-16.0); Lymphocytes # (A) 3.5 k/uL (1.0-4.8); Lymphocytes % (A) 35 %; MCH 30.2 pg (25.0-35.0); MCHC 33.3 g/dL (31.0-37.0); MCV 90.6 fL (80.0-100.0); Mean Platelet Volume 7.2; Monocytes # (A) 0.4 k/uL (0-1.0); Monocytes % (A) 4 %; Neutrophils # (A) 5.6 k/uL (1.3-7.7); Neutrophils % (A) 57 %; RBC 5.14 m/uL (3.80-5.40); RDW 13.2 % (11.5-15.5); WBC 9.9 k/uL (3.8-10.6)
[2020-06-19 04:26] LABS: Platelet Count 215 k/uL (150-450)
[2020-06-19 04:27] LABS: ALT 32 U/L (4-34); AST 52 U/L (14-36); African American GFR (CKD) >90 (>60 ml/min/1.73 sqM); Alkaline Phosphatase 83 U/L (38-126); Amylase 57 U/L (30-110); Anion Gap 14 mmol/L; Blood Urea Nitrogen 7 mg/dL (7-17); Calcium 9.3 mg/dL (8.4-10.2); Carbon Dioxide 26 mmol/L (22-30); Chloride 99 mmol/L (98-107); Glucose 96 mg/dL (74-99); Non-African American GFR(CKD) >90 (>60 ml/min/1.73 sqM); Potassium 3.9 mmol/L (3.5-5.1); Sodium 139 mmol/L (137-145); Total Bilirubin 0.7 mg/dL (0.2-1.3); Total Protein 8.1 g/dL (6.3-8.2)
[2020-06-19 04:35] LABS: Alcohol 264 mg/dL
[2020-06-19 06:16] VITALS: BP 129/93; PULSE 85; RESP 16
== END 2020-06-19 06:30 | disposition home or self-care (01) ==
LOC: EC 03:30
DX: N39.0 Urinary tract infection, site not specified (principal); M19.90 Unspecified osteoarthritis, unspecified site; F17.210 Nicotine dependence, cigarettes, uncomplicated; Z91.013 Allergy to seafood; Z88.2 Allergy status to sulfonamides; Z91.048 Other nonmedicinal substance allergy status; Z79.899 Other long term (current) drug therapy; Z98.890 Other specified postprocedural states
CPT/HCPCS: 36415; 80053; 82150; 83690; 85025; 81001; 80320; 99284; 96365; 96375 ×3; J2060; J2270; J2405; J0696

== ENCOUNTER 2020-06-21 18:00 | Emergency (ER) | payer BC, OTHER ==
[2020-06-21 19:27] LABS: Appearance,Urine Clear (Clear); Bacteria,Urine Rare /hpf; Bilirubin,Urine Negative (Negative); Blood,Urine Negative (Negative); Color,Urine Light Yellow; Glucose,Urine (UA) Negative (Negative); Ketones,Urine Negative (Negative); Leukocyte Esterase,Urine Small (Negative); Nitrite,Urine Negative (Negative); PH, Urine 6.5 (5.0-8.0); Protein,Urine Negative (Negative); RBC,Urine 1 /hpf (0-5); Specific Gravity,Urine 1.005 (1.001-1.035); Squamous Epithelial Cell,Urine 2 /hpf (0-4); Urobilinogen,Urine <2.0 mg/dL (<2.0); WBC,Urine 2 /hpf (0-5)
[2020-06-21] MEDS ORDERED: LORazepam 2 MG/ML INJ IV STA ×2 (19:28→20:42)
[2020-06-21] MEDS ORDERED: KETOROLAC 15 MG/ML 1 ML VIAL IVP STA (19:54)
[2020-06-21 19:56] LABS: Basophils # (A) 0.1 k/uL (0-0.2); Basophils % (A) 1 %; Eosinophils # (A) 0.1 k/uL (0-0.7); Eosinophils % (A) 2 %; HCT 42.2 % (34.0-46.0); HGB 14.7 gm/dL (11.4-16.0); Lymphocytes # (A) 1.4 k/uL (1.0-4.8); Lymphocytes % (A) 16 %; MCH 32.3 pg (25.0-35.0); MCHC 34.9 g/dL (31.0-37.0); MCV 92.5 fL (80.0-100.0); Monocytes # (A) 0.3 k/uL (0-1.0); Monocytes % (A) 3 %; Neutrophils # (A) 6.7 k/uL (1.3-7.7); Neutrophils % (A) 78 %; Platelet Count 153 k/uL (150-450); RBC 4.56 m/uL (3.80-5.40); RDW 12.7 % (11.5-15.5); WBC 8.6 k/uL (3.8-10.6)
[2020-06-21 20:00] LABS: ALT 41 U/L (4-34); AST 69 U/L (14-36); African American GFR (CKD) >90 (>60 ml/min/1.73 sqM); Albumin 4.7 g/dL (3.5-5.0); Alkaline Phosphatase 68 U/L (38-126); Anion Gap 15 mmol/L; Blood Urea Nitrogen 4 mg/dL (7-17); Calcium 8.9 mg/dL (8.4-10.2); Carbon Dioxide 18 mmol/L (22-30); Chloride 98 mmol/L (98-107); Glucose 85 mg/dL (74-99); Non-African American GFR(CKD) >90 (>60 ml/min/1.73 sqM); Sodium 131 mmol/L (137-145); Total Bilirubin 0.9 mg/dL (0.2-1.3); Total Protein 7.7 g/dL (6.3-8.2)
[2020-06-21 20:13] LABS: Alcohol 158 mg/dL
[2020-06-21] MEDS ORDERED: cefTRIAXone IN SWFI 1,000 MG/10 ML SYRINGE IVP STA (20:20)
[2020-06-21] MEDS ORDERED: CEPHALEXIN 500MG STARTER PACK 4 CAP BTL PO STA (20:41)
--- NOTE | 2020-06-21 20:51 | ED ---
Female Urogenital HPI - General Chief complaint: Urogenital Stated complaint: abd pain Time Seen by Provider: 06/21/20 18:10 Source: EMS Mode of arrival: EMS Limitations: no limitations - History of Present Illness Initial comments: Patient is a 60-year-old female with past medical stable alcohol abuse who presents to emergency room with reported hematuria. States she was seen in the emergency room 2 days ago for similar complaint. She is diagnosed with a UTI. States that she's been unable to pepper picker her medications for her urinary tract infection and therefore came back into the emergency department for evaluation. Patient reports that she drinks daily. States that she did not drink today and therefore she is having withdrawal symptoms. Reports to feeling very shaky and is requesting Ativan. Patient denies alcohol withdrawal seizure history. Denies any fevers or chills. Admits nausea without vomiting. Was given 4 mg of Zofran by EMS. She admits to suprapubic abdominal cramping. Denies any abnormal vaginal bleeding or discharge. Denies changes in her stooling. No other alleviating, precipitating or modifying factors - Related Data Home Medications Medication Instructions Recorded Confirmed [id number] 1 - 2 tab PO Q4HR PRN 05/01/20 05/01/20 [Excedrin] Calcium Carbonate [Calcium] 600 mg PO DAILY 05/01/20 05/01/20 Cholecalciferol [Vitamin D3 (25 1,000 unit PO DAILY 05/01/20 05/01/20 Mcg = 1000 Iu)] Fexofenadine/Pseudoephedrine 1 tab PO DAILY 05/01/20 05/01/20 [Katarzyna-D 24 Hour Tablet] Gabapentin [Neurontin] 300 mg PO BID 05/01/20 05/01/20 Magnesium 250 mg PO DAILY 05/01/20 05/01/20 Multivitamins, Thera [Multivitamin 1 tab PO DAILY 05/01/20 05/01/20 (formulary)] Vitamin B Complex 1 cap PO DAILY 05/01/20 05/01/20 Previous Rx's Medication Instructions Recorded Hydrocodone/Acetaminophen [[place] 1 each PO Q6HR PRN #12 tab 05/01/20 5-325] Nicotine 14Mg/24Hr Patch [Habitrol] 1 patch TRANSDERM DAILY #14 patch 08/24/20 Thiamine [Vitamin B-1] 100 mg PO BID-W/MEALS #30 tab 05/05/20 Cephalexin [Keflex] 500 mg PO Q6HR 1 Days #20 cap 06/19/20 Cephalexin [Keflex] 500 mg PO BID 1 Days #10 cap 06/21/20 LORazepam [Ativan] 1 mg PO TID 3 Days #9 tab 06/21/20 Allergies Allergy/AdvReac Type Severity Reaction Status Date / Time shellfish derived [Shellfish] Allergy Severe Dyspnea Verified 06/21/20 18:21 iodine Allergy Rash/Hives Verified 06/21/20 18:21 Sulfa (Sulfonamide Allergy Rash/Hives Verified 06/21/20 18:21 Antibiotics) Review of Systems ROS Statement: Those systems with pertinent positive or pertinent negative responses have been documented in the HPI. ROS Other: All systems not noted in ROS Statement are negative. 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 History of Any Multi-Drug Resistant Organisms: None Reported Past Surgical History: Back Surgery Additional Past Surgical History / Comment(s): Cervical surgery at [facility] d/t injury, colonoscopies/benign polypectomy Past Anesthesia/Blood Transfusion Reactions: No Reported Reaction, Motion Sickness Additional Past Anesthesia/Blood Transfusion Reaction / Comment(s): PT has clausterphobia. Past Psychological History: Anxiety, Depression Smoking Status: Former smoker Past Alcohol Use History: Daily Past Drug Use History: None Reported - Past Family History Mother Family Medical History: Cancer Additional Family Medical History / Comment(s): Mother of melanoma Father Family Medical History: No Reported History Additional Family Medical History / Comment(s): Father is healthy General Exam Limitations: no limitations General appearance: alert, in no apparent distress Head exam: Present: atraumatic, normocephalic, normal inspection Eye exam: Present: normal appearance, PERRL, EOMI. Absent: scleral icterus, conjunctival injection, periorbital swelling ENT exam: Present: normal exam, mucous membranes moist Neck exam: Present: normal inspection. Absent: tenderness, meningismus, lymphadenopathy Respiratory exam: Present: normal lung sounds bilaterally. Absent: respiratory distress, wheezes, rales, rhonchi, stridor Cardiovascular Exam: Present: regular rate, normal rhythm, normal heart sounds. Absent: systolic murmur, diastolic murmur, rubs, gallop, clicks GI/Abdominal exam: Present: soft, tenderness (suprapubic), normal bowel sounds. Absent: distended, guarding, rebound, rigid Extremities exam: Present: normal inspection, full ROM, normal capillary refill. Absent: tenderness, pedal edema, joint swelling, calf tenderness Back exam: Present: normal inspection Neurological exam: Present: alert, oriented X3, CN II-XII intact Psychiatric exam: Present: normal affect, normal mood Skin exam: Present: warm, dry, intact, normal color. Absent: rash Course Vital Signs 06/21/20 06/21/20 06/21/20 18:10 19:54 20:54 Temperature 98.4 F Pulse Rate 96 96 90 Respiratory 18 18 19 Rate Blood Pressure 154/102 156/98 149/99 O2 Sat by Pulse 97 98 97 Oximetry 06/21/20 06/22/20 22:37 00:34 Temperature 97.7 F Pulse Rate 87 Respiratory 16 18 Rate Blood Pressure 157/106 O2 Sat by Pulse 99 Oximetry Medical Decision Making - Medical Decision Making Upon arrival the patient is placed into room 25. A thorough history and ph ysical exam was performed. Patient does provide any other urine sample. She is requesting Ativan by name and therefore she was given 1 mg she states she drinks daily did not drink today. Laboratory is as were conducted. Sodium 131. Kidney function is normal at 0.48. Does show that the patient is intoxicated with a level of 158. Patient does have small leukocyte esterase and rare bacteria in her urine. She was given a dose of Rocephin in the emergency room. Patient is requesting something for alcohol withdrawal at home. I will give her a prescription for Keflex as well as a three-day supply of Ativan. Patient will be given a Keflex starter pack so that she has 3 days with the medication before she needs to obtain the prescription from the pharmacy. The patient will be discharged when sober. She was in agreement with the treatment plan. Recommend that she return to the emergency room for any new or worsening symptoms. Patient was discharged home in stable condition - Lab Data Result diagrams: 06/21/20 19:38 06/21/20 19:38 Lab Results 06/21/20 06/21/20 06/21/20 Range/Units 18:44 19:38 19:38 WBC 8.6 (3.8-10.6) k/uL RBC 4.56 (3.80-5.40) m/uL Hgb 14.7 (11.4-16.0) gm/dL Hct 42.2 (34.0-46.0) % MCV 92.5 (80.0-100.0) fL MCH 32.3 (25.0-35.0) pg MCHC 34.9 (31.0-37.0) g/dL RDW 12.7 (11.5-15.5) % Plt Count 153 (150-450) k/uL Neutrophils % 78 % Lymphocytes % 16 % Monocytes % 3 % Eosinophils % 2 % Basophils % 1 % Neutrophils # 6.7 (1.3-7.7) k/uL Lymphocytes # 1.4 (1.0-4.8) k/uL Monocytes # 0.3 (0-1.0) k/uL Eosinophils # 0.1 (0-0.7) k/uL Basophils # 0.1 (0-0.2) k/uL Sodium 131 L (137-145) mmol/L Potassium 5.0 (3.5-5.1) mmol/L Chloride 98 (98-107) mmol/L Carbon Dioxide 18 L (22-30) mmol/L Anion Gap 15 mmol/L BUN 4 L (7-17) mg/dL Creatinine 0.48 L (0.52-1.04) mg/dL Est GFR (CKD-EPI)AfAm >90 (>60 ml/min/1.73 sqM) Est GFR (CKD-EPI)NonAf >90 (>60 ml/min/1.73 sqM) Glucose 85 (74-99) mg/dL Calcium 8.9 (8.4-10.2) mg/dL Total Bilirubin 0.9 (0.2-1.3) mg/dL AST 69 H (14-36) U/L ALT 41 H (4-34) U/L Alkaline Phosphatase 68 (38-126) U/L Total Protein 7.7 (6.3-8.2) g/dL Albumin 4.7 (3.5-5.0) g/dL Urine Color Light Yellow Urine Appearance Clear (Clear) Urine pH 6.5 (5.0-8.0) Ur Specific [place] 1.005 (1.001-1.035) Urine Protein Negative (Negative) Urine Glucose (UA) Negative (Negative) Urine Ketones Negative (Negative) Urine Blood Negative (Negative) Urine Nitrite Negative (Negative) Urine Bilirubin Negative (Negative) Urine Urobilinogen <2.0 (<2.0) mg/dL Ur Leukocyte Esterase Small H (Negative) Urine RBC 1 (0-5) /hpf Urine WBC 2 (0-5) /hpf Ur Squamous Epith Cells 2 (0-4) /hpf Urine Bacteria Rare H (None) /hpf Serum Alcohol 158 mg/dL Disposition Clinical Impression: Alcohol intoxication, Urinary tract infection Disposition: HOME SELF-CARE Condition: Stable Instructions (If sedation given, give patient instructions): Urinary Tract Infection in Women (ED), Alcohol Dependence (ED) Additional Instructions: Please follow-up with your primary care doctor in 2-4 days. Return to the emergency room for any new or worsening symptoms Prescriptions: LORazepam [Ativan] 1 mg PO TID 3 Days #9 tab Cephalexin [Keflex] 500 mg PO BID 1 Days #10 cap Is patient prescribed a controlled substance at d/c from ED?: Yes When asked, does pt state using other controlled substances?: No If prescribed controlled substance>3 days was MAPS reviewed?: Prescribed <3 Days Referrals: Danny Ogden DO [Primary Care Provider] - 1-2 days Time of Disposition: 20:51
[2020-06-22 00:35] VITALS: BP 157/106; PULSE 87; RESP 18; TEMP 97.7
== END 2020-06-22 00:39 | disposition home or self-care (01) ==
LOC: EC 18:00
DX: N39.0 Urinary tract infection, site not specified (principal); F10.129 Alcohol abuse with intoxication, unspecified; M19.90 Unspecified osteoarthritis, unspecified site; Z79.899 Other long term (current) drug therapy; Z88.2 Allergy status to sulfonamides; Z91.013 Allergy to seafood; Z91.041 Radiographic dye allergy status; Y90.6 Blood alcohol level of 120-199 mg/100 ml; Z87.891 Personal history of nicotine dependence
CPT/HCPCS: 99284; 96374; 96375 ×2; 96376; 36415; 80053; 85025; 81001; 80320; J2060; J0696; J1885

== ENCOUNTER 2020-07-23 15:51 | Emergency (ER) | payer BC, OTHER ==
--- NOTE | 2020-07-23 16:22 | ED ---
Psych HPI - General Source: patient, EMS, RN notes reviewed, old records reviewed Mode of arrival: EMS Limitations: no limitations - History of Present Illness MD Complaint: other (Severe alcohol intoxication) -: unknown Associated Psychiatric Symptoms: depression History of same: Yes Quality: constant Improves With: none Worsens With: alcohol Context: recent alcohol abuse, not taking psychiatric medications Associated Symptoms: denies other symptoms Treatments Prior to Arrival: placed on mental health hold <Alfredo Correa - Last Filed: 07/23/20 16:59> <Alfredo Brennan - Last Filed: 07/24/20 12:00> - General Chief Complaint: Psychiatric Symptoms Stated Complaint: psych Time Seen by Provider: 07/23/20 15:53 - History of Present Illness Initial Comments: This is a 70-year-old female DF she presents today for evaluation regards to severe alcohol intoxication poor strain secondary to elevated alcohol level. Patient's brought in by who states patient is severely intoxicated (Alfredo Correa) - Related Data Home Medications Medication Instructions Recorded Confirmed [id number] 1 - 2 tab PO Q4HR PRN 05/01/20 07/23/20 [Excedrin] Fexofenadine/Pseudoephedrine 1 tab PO DAILY 05/01/20 07/23/20 [Katarzyna-D 24 Hour Tablet] Multivitamins, Thera [Multivitamin 1 tab PO DAILY 05/01/20 07/23/20 (formulary)] Vitamin B Complex 1 cap PO DAILY 05/01/20 07/23/20 Calcium/Magnesium/Zinc 1 tab PO DAILY 07/23/20 07/23/20 [Pkiytzb-Xanriqwnl-Ubne Tablet] Allergies Allergy/AdvReac Type Severity Reaction Status Date / Time shellfish derived [Shellfish] Allergy Severe Dyspnea Verified 07/23/20 16:51 iodine Allergy Rash/Hives Verified 07/23/20 16:51 Sulfa (Sulfonamide Allergy Rash/Hives Verified 07/23/20 16:51 Antibiotics) Review of Systems ROS Other: All systems not noted in ROS Statement are negative. <Alfredo Correa - Last Filed: 07/23/20 16:59> ROS Other: All systems not noted in ROS Statement are negative. <Alfredo Brennan - Last Filed: 07/24/20 12:00> ROS Statement: Those systems with pertinent positive or pertinent negative responses have been documented in the HPI. 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 History of Any Multi-Drug Resistant Organisms: None Reported Past Surgical History: Back Surgery Additional Past Surgical History / Comment(s): Cervical surgery at [facility] d/t injury, colonoscopies/benign polypectomy Past Anesthesia/Blood Transfusion Reactions: No Reported Reaction, Motion Sickness Additional Past Anesthesia/Blood Transfusion Reaction / Comment(s): PT has clausterphobia. Past Psychological History: Anxiety, Depression Smoking Status: Former smoker Past Alcohol Use History: Daily Past Drug Use History: None Reported - Past Family History Mother Family Medical History: Cancer Additional Family Medical History / Comment(s): Mother of melanoma Father Family Medical History: No Reported History Additional Family Medical History / Comment(s): Father is healthy <Alfredo Correa - Last Filed: 07/23/20 16:59> General Exam Limitations: no limitations General appearance: alert, in no apparent distress, appears intoxicated Head exam: Present: atraumatic, normocephalic, normal inspection Eye exam: Present: normal appearance, PERRL, EOMI. Absent: scleral icterus, conjunctival injection, periorbital swelling ENT exam: Present: normal exam, mucous membranes moist Neck exam: Present: normal inspection. Absent: tenderness, meningismus, lymphadenopathy Respiratory exam: Present: normal lung sounds bilaterally. Absent: respiratory distress, wheezes, rales, rhonchi, stridor Cardiovascular Exam: Present: regular rate, normal rhythm, normal heart sounds. Absent: systolic murmur, diastolic murmur, rubs, gallop, clicks GI/Abdominal exam: Present: soft, normal bowel sounds. Absent: distended, tenderness, guarding, rebound, rigid Extremities exam: Present: normal inspection, full ROM, normal capillary refill. Absent: tenderness, pedal edema, joint swelling, calf tenderness Back exam: Present: normal inspection Neurological exam: Present: alert, oriented X3, CN II-XII intact Psychiatric exam: Present: normal affect, normal mood Skin exam: Present: warm, dry, intact, normal color. Absent: rash <Alfredo Correa - Last Filed: 07/23/20 16:59> Course <Alfredo Correa - Last Filed: 07/23/20 16:59> Vital Signs 07/23/20 07/23/20 07/24/20 15:57 22:08 04:10 Temperature 98.7 F Pulse Rate 82 79 99 Respiratory 18 18 20 Rate Blood Pressure 128/72 123/78 149/75 O2 Sat by Pulse 96 100 98 Oximetry 07/24/20 07/24/20 07:38 11:09 Temperature 99 F Pulse Rate 100 104 H Respiratory 18 18 Rate Blood Pressure 149/80 164/97 O2 Sat by Pulse 95 98 Oximetry - Reevaluation(s) Reevaluation #1: 07/23/20 17:00 Medical records reviewed (Alfredo Correa) Medical Decision Making - Lab Data Result diagrams: 07/23/20 16:46 <Alfredo Correa - Last Filed: 07/23/20 16:59> - Lab Data Result diagrams: 07/24/20 11:18 07/23/20 16:49 <Alfredo Brennan - Last Filed: 07/24/20 12:00> - Medical Decision Making Patient was cleared by psych. I repeated his CBC on the patient the white count came down. I went back in and interviewed the patient she stated she was feeling pretty good. Patient states she might go to rehab. Patient denies any suicidal homicidal ideations. (Alfredo Brennan) - Lab Data Lab Results 07/23/20 07/23/20 07/23/20 Range/Units 16:46 16:49 23:25 WBC 16.0 H (3.8-10.6) k/uL RBC 5.49 H (3.80-5.40) m/uL Hgb 17.1 H (11.4-16.0) gm/dL Hct 51.1 H (34.0-46.0) % MCV 93.2 (80.0-100.0) fL MCH 31.1 (25.0-35.0) pg MCHC 33.4 (31.0-37.0) g/dL RDW 13.7 (11.5-15.5) % Plt Count 243 (150-450) k/uL MPV 6.7 Neutrophils % 81 % Lymphocytes % 14 % Monocytes % 2 % Eosinophils % 2 % Basophils % 1 % Neutrophils # 13.0 H (1.3-7.7) k/uL Lymphocytes # 2.2 (1.0-4.8) k/uL Monocytes # 0.3 (0-1.0) k/uL Eosinophils # 0.3 (0-0.7) k/uL Basophils # 0.1 (0-0.2) k/uL Sodium 141 (137-145) mmol/L Potassium 3.9 (3.5-5.1) mmol/L Chloride 106 (98-107) mmol/L Carbon Dioxide 19 L (22-30) mmol/L Anion Gap 16 mmol/L BUN 8 (7-17) mg/dL Creatinine 0.66 (0.52-1.04) mg/dL Est GFR (CKD-EPI)AfAm >90 (>60 ml/min/1.73 sqM) Est GFR (CKD-EPI)NonAf >90 (>60 ml/min/1.73 sqM) Glucose 85 (74-99) mg/dL Calcium 8.4 (8.4-10.2) mg/dL Phosphorus 3.4 (2.5-4.5) mg/dL Magnesium 1.5 L (1.6-2.3) mg/dL Total Bilirubin 0.9 (0.2-1.3) mg/dL AST 44 H (14-36) U/L ALT 24 (4-34) U/L Alkaline Phosphatase 73 (38-126) U/L Total Protein 7.7 (6.3-8.2) g/dL Albumin 4.7 (3.5-5.0) g/dL Lipase 120 (23-300) U/L Urine Color Yellow Urine Appearance Cloudy H (Clear) Urine pH 5.5 (5.0-8.0) Ur Specific [place] 1.022 (1.001-1.035) Urine Protein 1+ H (Negative) Urine Glucose (UA) Negative (Negative) Urine Ketones 3+ H (Negative) Urine Blood Trace H (Negative) Urine Nitrite Negative (Negative) Urine Bilirubin Negative (Negative) Urine Urobilinogen <2.0 (<2.0) mg/dL Ur Leukocyte Esterase Small H (Negative) Urine RBC 1 (0-5) /hpf Urine WBC 3 (0-5) /hpf Ur Squamous Epith Cells 6 H (0-4) /hpf Urine Bacteria Rare H (None) /hpf Hyaline Casts 3 H (0-2) /lpf Granular Casts 3 (0) /lpf Urine Mucus Moderate H (None) /hpf Urine Opiates Screen Not Detected (NotDetected) Ur Oxycodone Screen Not Detected (NotDetected) Urine Methadone Screen Not Detected (NotDetected) Ur Propoxyphene Screen Not Detected (NotDetected) Ur Barbiturates Screen Not Detected (NotDetected) U Tricyclic Antidepress Not Detected (NotDetected) Ur Phencyclidine Scrn Not Detected (NotDetected) Ur Amphetamines Screen Not Detected (NotDetected) U Methamphetamines Scrn Not Detected (NotDetected) U Benzodiazepines Scrn Detected H (NotDetected) Urine Cocaine Screen Not Detected (NotDetected) U Marijuana (THC) Screen Not Detected (NotDetected) 07/24/20 Range/Units 11:18 WBC 10.3 (3.8-10.6) k/uL RBC 4.44 (3.80-5.40) m/uL Hgb 14.5 (11.4-16.0) gm/dL Hct 41.4 (34.0-46.0) % MCV 93.1 (80.0-100.0) fL MCH 32.6 (25.0-35.0) pg MCHC 35.0 (31.0-37.0) g/dL RDW 12.9 (11.5-15.5) % Plt Count 169 (150-450) k/uL MPV 7.3 Neutrophils % 77 % Lymphocytes % 16 % Monocytes % 4 % Eosinophils % 2 % Basophils % 1 % Neutrophils # 7.9 H (1.3-7.7) k/uL Lymphocytes # 1.6 (1.0-4.8) k/uL Monocytes # 0.4 (0-1.0) k/uL Eosinophils # 0.2 (0-0.7) k/uL Basophils # 0.1 (0-0.2) k/uL Sodium (137-145) mmol/L Potassium (3.5-5.1) mmol/L Chloride (98-107) mmol/L Carbon Dioxide (22-30) mmol/L Anion Gap mmol/L BUN (7-17) mg/dL Creatinine (0.52-1.04) mg/dL Est GFR (CKD-EPI)AfAm (>60 ml/min/1.73 sqM) Est GFR (CKD-EPI)NonAf (>60 ml/min/1.73 sqM) Glucose (74-99) mg/dL Calcium (8.4-10.2) mg/dL Phosphorus (2.5-4.5) mg/dL Magnesium (1.6-2.3) mg/dL Total Bilirubin (0.2-1.3) mg/dL AST (14-36) U/L ALT (4-34) U/L Alkaline Phosphatase (38-126) U/L Total Protein (6.3-8.2) g/dL Albumin (3.5-5.0) g/dL Lipase (23-300) U/L Urine Color Urine Appearance (Clear) Urine pH (5.0-8.0) Ur Specific [place] (1.001-1.035) Urine Protein (Negative) Urine Glucose (UA) (Negative) Urine Ketones (Negative) Urine Blood (Negative) Urine Nitrite (Negative) Urine Bilirubin (Negative) Urine Urobilinogen (<2.0) mg/dL Ur Leukocyte Esterase (Negative) Urine RBC (0-5) /hpf Urine WBC (0-5) /hpf Ur Squamous Epith Cells (0-4) /hpf Urine Bacteria (None) /hpf Hyaline Casts (0-2) /lpf Granular Casts (0) /lpf Urine Mucus (None) /hpf Urine Opiates Screen (NotDetected) Ur Oxycodone Screen (NotDetected) Urine Methadone Screen (NotDetected) Ur Propoxyphene Screen (NotDetected) Ur Barbiturates Screen (NotDetected) U Tricyclic Antidepress (NotDetected) Ur Phencyclidine Scrn (NotDetected) Ur Amphetamines Screen (NotDetected) U Methamphetamines Scrn (NotDetected) U Benzodiazepines Scrn (NotDetected) Urine Cocaine Screen (NotDetected) U Marijuana (THC) Screen (NotDetected) Disposition <Alfredo Correa - Last Filed: 07/23/20 16:59> Is patient prescribed a controlled substance at d/c from ED?: No Time of Disposition: 11:59 <Alfredo Brennan - Last Filed: 07/24/20 12:00> Clinical Impression: Alcohol intoxication Disposition: HOME SELF-CARE Instructions (If sedation given, give patient instructions): Alcohol Intoxication (ED) Referrals: Danyn Ogden DO [Primary Care Provider] - 1-2 days
[2020-07-23] MEDS ORDERED: SODIUM CHLORIDE 0.9% 1,000 ML IV STA (16:30)
[2020-07-23 16:56] LABS: Basophils # (A) 0.1 k/uL (0-0.2); Basophils % (A) 1 %; Eosinophils # (A) 0.3 k/uL (0-0.7); Eosinophils % (A) 2 %; HCT 51.1 % (34.0-46.0); HGB 17.1 gm/dL (11.4-16.0); Lymphocytes # (A) 2.2 k/uL (1.0-4.8); Lymphocytes % (A) 14 %; MCH 31.1 pg (25.0-35.0); MCHC 33.4 g/dL (31.0-37.0); MCV 93.2 fL (80.0-100.0); Mean Platelet Volume 6.7; Monocytes # (A) 0.3 k/uL (0-1.0); Monocytes % (A) 2 %; Neutrophils % (A) 81 %; Platelet Count 243 k/uL (150-450); RBC 5.49 m/uL (3.80-5.40); RDW 13.7 % (11.5-15.5)
[2020-07-23 17:06] LABS: ALT 24 U/L (4-34); AST 44 U/L (14-36); African American GFR (CKD) >90 (>60 ml/min/1.73 sqM); Albumin 4.7 g/dL (3.5-5.0); Alkaline Phosphatase 73 U/L (38-126); Anion Gap 16 mmol/L; Blood Urea Nitrogen 8 mg/dL (7-17); Calcium 8.4 mg/dL (8.4-10.2); Carbon Dioxide 19 mmol/L (22-30); Chloride 106 mmol/L (98-107); Glucose 85 mg/dL (74-99); Lipase 120 U/L (23-300); Magnesium 1.5 mg/dL (1.6-2.3); Non-African American GFR(CKD) >90 (>60 ml/min/1.73 sqM); Phosphorus 3.4 mg/dL (2.5-4.5); Potassium 3.9 mmol/L (3.5-5.1); Sodium 141 mmol/L (137-145); Total Bilirubin 0.9 mg/dL (0.2-1.3); Total Protein 7.7 g/dL (6.3-8.2)
[2020-07-23] MEDS: ONDANSETRON 4 MG/2 ML VIAL IVP STA ×2 (19:14→19:16)
[2020-07-23] MEDS ORDERED: ONDANSETRON 4 MG TAB PO STA (19:16)
[2020-07-23] MEDS ORDERED: LORazepam 2 MG/ML INJ IM STA (19:51)
[2020-07-23] MEDS ORDERED: LORazepam 1 MG TAB PO STA (23:27)
[2020-07-23 23:54] LABS: Appearance,Urine Cloudy (Clear); Bacteria,Urine Rare /hpf; Bilirubin,Urine Negative (Negative); Blood,Urine Trace (Negative); Color,Urine Yellow; Glucose,Urine (UA) Negative (Negative); Granular Casts,Urine 3 /lpf (0); Hyaline Casts,Urine 3 /lpf (0-2); Ketones,Urine 3+ (Negative); Leukocyte Esterase,Urine Small (Negative); Mucus,Urine Moderate /hpf; Nitrite,Urine Negative (Negative); PH, Urine 5.5 (5.0-8.0); Protein,Urine 1+ (Negative); RBC,Urine 1 /hpf (0-5); Specific Gravity,Urine 1.022 (1.001-1.035); Squamous Epithelial Cell,Urine 6 /hpf (0-4); Urobilinogen,Urine <2.0 mg/dL (<2.0); WBC,Urine 3 /hpf (0-5)
[2020-07-24 00:02] LABS: Amphetamine Screen,Urine Not Detected (NotDetected); Barbiturate Screen,Urine Not Detected (NotDetected); Benzodiazepines Screen,Urine Detected (NotDetected); Cocaine Screen,Urine Not Detected (NotDetected); Methadone Screen, Urine Not Detected (NotDetected); Opiate Screen,Urine Not Detected (NotDetected); Oxycodone Screen, Urine Not Detected (NotDetected); Phencyclidine Screen,Urine Not Detected (NotDetected); Tricyclic Antidepressant,Urine Not Detected (NotDetected); Urn Cannabinoid Scrn Not Detected (NotDetected)
[2020-07-24] MEDS ORDERED: ONDANSETRON ODT 4 MG TAB PO STA (00:47)
[2020-07-24] MEDS ORDERED: IBUPROFEN 600 MG TAB PO STA (00:47)
[2020-07-24] MEDS ORDERED: LORazepam 2 MG/ML INJ IM STA ×2 (02:11→04:42)
[2020-07-24 07:39] VITALS: RESP 18
[2020-07-24] MEDS ORDERED: LORazepam 2 MG/ML INJ IV PRN ×3 (08:53)
[2020-07-24] MEDS ORDERED: LORazepam 2 MG/ML INJ IM PRN ×3 (08:57→08:58)
[2020-07-24] MEDS ORDERED: KETOROLAC 15 MG/ML 1 ML VIAL IM STA (11:19)
[2020-07-24 11:30] LABS: Basophils # (A) 0.1 k/uL (0-0.2); Basophils % (A) 1 %; Eosinophils # (A) 0.2 k/uL (0-0.7); Eosinophils % (A) 2 %; HCT 41.4 % (34.0-46.0); HGB 14.5 gm/dL (11.4-16.0); Lymphocytes # (A) 1.6 k/uL (1.0-4.8); Lymphocytes % (A) 16 %; MCH 32.6 pg (25.0-35.0); MCV 93.1 fL (80.0-100.0); Mean Platelet Volume 7.3; Monocytes # (A) 0.4 k/uL (0-1.0); Monocytes % (A) 4 %; Neutrophils # (A) 7.9 k/uL (1.3-7.7); Neutrophils % (A) 77 %; Platelet Count 169 k/uL (150-450); RBC 4.44 m/uL (3.80-5.40); RDW 12.9 % (11.5-15.5); WBC 10.3 k/uL (3.8-10.6)
[2020-07-24 13:29] VITALS: BP 149/82; PULSE 101; TEMP 97.8
== END 2020-07-24 13:28 | disposition home or self-care (01) ==
LOC: EC 15:51
DX: F10.129 Alcohol abuse with intoxication, unspecified (principal); M19.90 Unspecified osteoarthritis, unspecified site; Y90.9 Presence of alcohol in blood, level not specified; Z79.899 Other long term (current) drug therapy; Z91.013 Allergy to seafood; Z91.048 Other nonmedicinal substance allergy status; Z88.2 Allergy status to sulfonamides; Z87.891 Personal history of nicotine dependence
CPT/HCPCS: 82075; 36415 ×2; 80053; 83690; 83735; 84100; 85025 ×2; 81001; 80306; 99285; 96372 ×4; J2060 ×2; J1885

== ENCOUNTER 2021-01-29 09:14 | Inpatient (IN) | payer BC, OTHER ==
[2021-01-29] MEDS ORDERED: METOCLOPRAMIDE 5 MG/ML 2 ML VIAL IVP STA (09:49)
[2021-01-29] MEDS ORDERED: SODIUM CHLORIDE 0.9% 1,000 ML IV STA (09:49)
[2021-01-29] MEDS ORDERED: PANTOPRAZOLE 40 MG/10 ML VIAL IVP STA (09:49)
[2021-01-29] MEDS ORDERED: SODIUM CHLORIDE 0.9% 500 ML 500 ML IV STA (09:49)
[2021-01-29 10:17] LABS: Basophils % (A) 0 %; Eosinophils % (A) 0 %; HCT 44.8 % (34.0-46.0); HGB 15.6 gm/dL (11.4-16.0); Lymphocytes # (A) 0.6 k/uL (1.0-4.8); Lymphocytes % (A) 4 %; MCH 32.5 pg (25.0-35.0); MCHC 34.9 g/dL (31.0-37.0); MCV 93.2 fL (80.0-100.0); Mean Platelet Volume 7.6; Monocytes # (A) 0.2 k/uL (0-1.0); Monocytes % (A) 2 %; Neutrophils # (A) 11.8 k/uL (1.3-7.7); Neutrophils % (A) 93 %; Platelet Count 105 k/uL (150-450); RDW 12.3 % (11.5-15.5); WBC 12.7 k/uL (3.8-10.6)
[2021-01-29 10:31] LABS: ALT 82 U/L (4-34); AST 162 U/L (14-36); African American GFR (CKD) >90 (>60 ml/min/1.73 sqM); Albumin 5.1 g/dL (3.5-5.0); Alkaline Phosphatase 70 U/L (38-126); Amylase 64 U/L (30-110); Anion Gap 26 mmol/L; Blood Urea Nitrogen 8 mg/dL (7-17); Calcium 8.4 mg/dL (8.4-10.2); Carbon Dioxide 15 mmol/L (22-30); Chloride 102 mmol/L (98-107); Glucose 146 mg/dL (74-99); Lipase 196 U/L (23-300); Non-African American GFR(CKD) >90 (>60 ml/min/1.73 sqM); Sodium 143 mmol/L (137-145); Total Bilirubin 0.7 mg/dL (0.2-1.3); Total Protein 7.8 g/dL (6.3-8.2)
[2021-01-29 10:38] LABS: Alcohol 289 mg/dL
[2021-01-29 10:41] LABS: INR 0.9 (<1.2); Prothrombin Time 10.2 sec (9.0-12.0)
[2021-01-29 10:51] LABS: Partial Thromboplastin Time 20.6 sec (22.0-30.0)
[2021-01-29] MEDS ORDERED: SODIUM CHLORIDE 0.9% 1,000 ML IV ONE (11:06)
[2021-01-29 11:26] LABS: Appearance,Urine Clear (Clear); Bacteria,Urine Rare /hpf; Bilirubin,Urine Negative (Negative); Blood,Urine Large (Negative); Color,Urine Light Yellow; Glucose,Urine (UA) Negative (Negative); Hyaline Casts,Urine 6 /lpf (0-2); Ketones,Urine 1+ (Negative); Leukocyte Esterase,Urine Negative (Negative); Mucus,Urine Rare /hpf; Nitrite,Urine Negative (Negative); Protein,Urine 1+ (Negative); Specific Gravity,Urine 1.007 (1.001-1.035); Squamous Epithelial Cell,Urine 6 /hpf (0-4); Urobilinogen,Urine <2.0 mg/dL (<2.0); WBC,Urine 1 /hpf (0-5)
[2021-01-29] MEDS ORDERED: FAMOTIDINE 20 MG/2 ML VIAL IV STA (11:33)
[2021-01-29] MEDS ORDERED: methylPREDNISolone SOD SUCCI 125 MG/2 ML VIAL IV STA (11:33)
[2021-01-29] MEDS ORDERED: diphenhydrAMINE 50 MG/ML 1 ML VIAL IVP STA (11:34)
--- NOTE | 2021-01-29 12:11 | ED ---
Abdominal Pain HPI - General Chief Complaint: Abdominal Pain Stated Complaint: Abd Pain,Vomiting Time Seen by Provider: 01/29/21 09:17 Source: patient, EMS, RN notes reviewed Mode of arrival: EMS Limitations: no limitations - History of Present Illness Initial Comments: This a 60-year-old female presents emergency per minute via EMS for evaluation of abdominal pain, nausea vomiting. Patient states she's having left upper quadrant abdominal pain, vomiting with some noted blood. Patient is a daily alcohol drinker states that she still has been drinking since last night. Patient denies any chest pain or shortness breath no headache no dizziness no fevers chills no dysuria no hematuria and no melena hematochezia. - Related Data Home Medications Medication Instructions Recorded Confirmed [id number]-[id number] [id number] 1 - 2 tab PO Q4HR PRN 05/01/20 01/29/21 [Excedrin] Fexofenadine/Pseudoephedrine 1 tab PO DAILY 05/01/20 01/29/21 [Katarzyna-D 24 Hour Tablet] Multivitamins, Thera [Multivitamin 1 tab PO DAILY 05/01/20 01/29/21 (formulary)] Vitamin B Complex 1 cap PO DAILY 05/01/20 01/29/21 Calcium/Magnesium/Zinc 1 tab PO DAILY 07/23/20 01/29/21 [Cppunqi-Iztcevkct-Tfdq Tablet] Allergies Allergy/AdvReac Type Severity Reaction Status Date / Time shellfish derived [Shellfish] Allergy Severe Dyspnea Verified 01/29/21 10:22 iodine Allergy Rash/Hives Verified 01/29/21 10:22 Sulfa (Sulfonamide Allergy Rash/Hives Verified 01/29/21 10:22 Antibiotics) Review of Systems ROS Statement: Those systems with pertinent positive or pertinent negative responses have been documented in the HPI. ROS Other: All systems not noted in ROS Statement are negative. 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 History of Any Multi-Drug Resistant Organisms: None Reported Past Surgical History: Back Surgery Additional Past Surgical History / Comment(s): Cervical surgery at [facility] d/t injury, colonoscopies/benign polypectomy Past Anesthesia/Blood Transfusion Reactions: No Reported Reaction, Motion Si ckness Additional Past Anesthesia/Blood Transfusion Reaction / Comment(s): PT has clausterphobia. Past Psychological History: Anxiety, Depression Smoking Status: Current every day smoker Past Alcohol Use History: Abuse, Daily, Heavy Past Drug Use History: None Reported - Past Family History Mother Family Medical History: Cancer Additional Family Medical History / Comment(s): Mother of melanoma Father Family Medical History: No Reported History Additional Family Medical History / Comment(s): Father is healthy General Exam Limitations: no limitations General appearance: alert, in no apparent distress Head exam: Present: atraumatic, normocephalic, normal inspection Eye exam: Present: normal appearance, PERRL, EOMI. Absent: scleral icterus, conjunctival injection, periorbital swelling ENT exam: Present: normal exam, normal oropharynx, mucous membranes moist Neck exam: Present: normal inspection, full ROM. Absent: tenderness, meningismus, lymphadenopathy Respiratory exam: Present: normal lung sounds bilaterally. Absent: respiratory distress, wheezes, rales, rhonchi, stridor Cardiovascular Exam: Present: normal rhythm, tachycardia, normal heart sounds. Absent: systolic murmur, diastolic murmur, rubs, gallop, clicks GI/Abdominal exam: Present: soft, tenderness, normal bowel sounds. Absent: distended, guarding, rebound, rigid Back exam: Absent: CVA tenderness (R), CVA tenderness (L) Neurological exam: Present: alert Skin exam: Present: warm, dry, intact, normal color. Absent: rash Course Vital Signs 01/29/21 09:16 Temperature 99.3 F Pulse Rate 101 H Respiratory 18 Rate Blood Pressure 148/93 O2 Sat by Pulse 96 Oximetry Medical Decision Making - Medical Decision Making Patient presented for acute bronchitis kitchen, hematemesis. Patient is stable after IV fluids, antiemetics and started on Protonix. Patient's case discussed with Dr. Rush recommends Valium 5 mg every 8 by mouth with CIWA scale. Patient with consult to GI. - Lab Data Result diagrams: 01/29/21 10:07 01/29/21 10:07 Lab Results 01/29/21 01/29/21 01/29/21 Range/Units 10:07 10:07 10:07 WBC 12.7 H (3.8-10.6) k/uL RBC 4.80 (3.80-5.40) m/uL Hgb 15.6 (11.4-16.0) gm/dL Hct 44.8 (34.0-46.0) % MCV 93.2 (80.0-100.0) fL MCH 32.5 (25.0-35.0) pg MCHC 34.9 (31.0-37.0) g/dL RDW 12.3 (11.5-15.5) % Plt Count 105 L (150-450) k/uL MPV 7.6 Neutrophils % 93 % Lymphocytes % 4 % Monocytes % 2 % Eosinophils % 0 % Basophils % 0 % Neutrophils # 11.8 H (1.3-7.7) k/uL Lymphocytes # 0.6 L (1.0-4.8) k/uL Monocytes # 0.2 (0-1.0) k/uL Eosinophils # 0.0 (0-0.7) k/uL Basophils # 0.0 (0-0.2) k/uL PT 10.2 (9.0-12.0) sec INR 0.9 (<1.2) APTT 20.6 L (22.0-30.0) sec Sodium 143 (137-145) mmol/L Potassium 4.0 (3.5-5.1) mmol/L Chloride 102 (98-107) mmol/L Carbon Dioxide 15 L (22-30) mmol/L Anion Gap 26 mmol/L BUN 8 (7-17) mg/dL Creatinine 0.60 (0.52-1.04) mg/dL Est GFR (CKD-EPI)AfAm >90 (>60 ml/min/1.73 sqM) Est GFR (CKD-EPI)NonAf >90 (>60 ml/min/1.73 sqM) Glucose 146 H (74-99) mg/dL Lactic Ac Sepsis Rflx Plasma Lactic Acid Samuel (0.7-2.0) mmol/L Calcium 8.4 (8.4-10.2) mg/dL Total Bilirubin 0.7 (0.2-1.3) mg/dL AST 162 H (14-36) U/L ALT 82 H (4-34) U/L Alkaline Phosphatase 70 (38-126) U/L Total Protein 7.8 (6.3-8.2) g/dL Albumin 5.1 H (3.5-5.0) g/dL Amylase 64 (30-110) U/L Lipase 196 (23-300) U/L Urine Color Urine Appearance (Clear) Urine pH (5.0-8.0) Ur Specific [place] (1.001-1.035) Urine Protein (Negative) Urine Glucose (UA) (Negative) Urine Ketones (Negative) Urine Blood (Negative) Urine Nitrite (Negative) Urine Bilirubin (Negative) Urine Urobilinogen (<2.0) mg/dL Ur Leukocyte Esterase (Negative) Urine WBC (0-5) /hpf Ur Squamous Epith Cells (0-4) /hpf Urine Bacteria (None) /hpf Hyaline Casts (0-2) /lpf Urine Mucus (None) /hpf Serum Alcohol 289 H* mg/dL 01/29/21 01/29/21 01/29/21 Range/Units 10:07 10:39 10:58 WBC (3.8-10.6) k/uL RBC (3.80-5.40) m/uL Hgb (11.4-16.0) gm/dL Hct (34.0-46.0) % MCV (80.0-100.0) fL MCH (25.0-35.0) pg MCHC (31.0-37.0) g/dL RDW (11.5-15.5) % Plt Count (150-450) k/uL MPV Neutrophils % % Lymphocytes % % Monocytes % % Eosinophils % % Basophils % % Neutrophils # (1.3-7.7) k/uL Lymphocytes # (1.0-4.8) k/uL Monocytes # (0-1.0) k/uL Eosinophils # (0-0.7) k/uL Basophils # (0-0.2) k/uL PT (9.0-12.0) sec INR (<1.2) APTT (22.0-30.0) sec Sodium (137-145) mmol/L Potassium (3.5-5.1) mmol/L Chloride (98-107) mmol/L Carbon Dioxide (22-30) mmol/L Anion Gap mmol/L BUN (7-17) mg/dL Creatinine (0.52-1.04) mg/dL Est GFR (CKD-EPI)AfAm (>60 ml/min/1.73 sqM) Est GFR (CKD-EPI)NonAf (>60 ml/min/1.73 sqM) Glucose (74-99) mg/dL Lactic Ac Sepsis Rflx Y Plasma Lactic Acid Samuel 4.1 H* (0.7-2.0) mmol/L Calcium (8.4-10.2) mg/dL Total Bilirubin (0.2-1.3) mg/dL AST (14-36) U/L ALT (4-34) U/L Alkaline Phosphatase (38-126) U/L Total Protein (6.3-8.2) g/dL Albumin (3.5-5.0) g/dL Amylase (30-110) U/L Lipase (23-300) U/L Urine Color Light Yellow Urine Appearance Clear (Clear) Urine pH 6.0 (5.0-8.0) Ur Specific [place] 1.007 (1.001-1.035) Urine Protein 1+ H (Negative) Urine Glucose (UA) Negative (Negative) Urine Ketones 1+ H (Negative) Urine Blood Large H (Negative) Urine Nitrite Negative (Negative) Urine Bilirubin Negative (Negative) Urine Urobilinogen <2.0 (<2.0) mg/dL Ur Leukocyte Esterase Negative (Negative) Urine WBC 1 (0-5) /hpf Ur Squamous Epith Cells 6 H (0-4) /hpf Urine Bacteria Rare H (None) /hpf Hyaline Casts 6 H (0-2) /lpf Urine Mucus Rare H (None) /hpf Serum Alcohol mg/dL - EKG Data -: EKG Interpreted by Me EKG Comments: EKG performed at 9:35 sinus tachycardia rate of 102 DC 126 QRS 92 QT/QTC 412/536 Disposition Clinical Impression: Alcohol intoxication, Metabolic acidosis, Alcoholic ketoacidosis, Hematemesis, Alcoholic gastritis Disposition: ADMITTED IP TO THIS [facility] Condition: Fair Referrals: Souphis,Danny, DO [Primary Care Provider] - 1-2 days
--- NOTE | 2021-01-29 13:31 | CT ---
EXAMINATION TYPE: CT abdomen pelvis w con DATE OF EXAM: 01/29/2021 COMPARISON: October 16, 2011 HISTORY: left flank pain, nausea, vomiting, hematemesis CT DLP: 1040.3 mGycm CONTRAST: CT scan of the abdomen and pelvis is performed without Oral Contrast and with IV Contrast, patient in jected with 100 mL of Isovue 300. FINDINGS: LUNG BASES-: No visible nodule. No infiltrate. LIVER/GB: No calcified gallstones. There is evidence of hepatic steatosis. No space occupying hepa tic lesion. Biliary tree is of normal caliber. PANCREAS: No inflammation. No distinct mass. SPLEEN: No splenic enlargement. No lesion seen. ADRENALS: No nodule. No thickening. KIDNEYS/BLADDER: No hydronephrosis. No nephrolithiasis. No distinct renal mass. Urinary bladder g rossly unremarkable. BOWEL: Normal appendix. Normal bowel caliber. No inflammation. GENITAL ORGANS: No gross abnormality. LYMPH NODES: No greater than 1cm abdominal or pelvic lymph nodes are appreciated. AORTA: No significant abnormality. OSSEOUS STRUCTURES: No significant abnormality is seen. OTHER: No significant additional abnormality is seen. IMPRESSION: 1. Hepatic steatosis. 2. No acute process identified.
[2021-01-29] MEDS ORDERED: ONDANSETRON 4 MG/2 ML VIAL IVP PRN (13:52)
[2021-01-29] MEDS ORDERED: NALOXONE 0.4 MG/ML 1 ML VIAL IV PRN (13:52)
[2021-01-29] MEDS: diazePAM 5 MG TAB PO SCH ×2 (15:24→21:55)
[2021-01-29] MEDS ORDERED: DEXTROSE 5% IN WATER 1,000 ML with SODIUM BICARB (1 MEQ/ML) 50 ML IV SCH (17:15)
[2021-01-29] MEDS ORDERED: NON FORMULARY DRUG (Vitamin B Complex [Vitamin B Complex] 1 EACH Capsule) PO SCH (17:30)
[2021-01-29] MEDS: METOPROLOL TARTRATE 12.5 MG TAB PO SCH ×2 (19:29→23:19)
[2021-01-29] MEDS: MULTIVITAMINS, THERA 1 EACH TAB PO SCH (19:29)
[2021-01-29] MEDS: THIAMINE 100 MG TAB PO SCH (19:29)
[2021-01-29] MEDS: HYDROmorphone 0.5 MG/0.5 ML SYRINGE IVP PRN (21:49)
[2021-01-29] MEDS: PANTOPRAZOLE 40 MG/10 ML VIAL IV SCH (21:55)
--- NOTE | 2021-01-29 22:06 | P.HPIM ---
History of Present Illness H&P Date: 01/29/21 Chief Complaint: Abdominal pain History of presenting complaint: This is a 60-year-old patient . admitted here on 2019. admitted following a fall for alcohol intoxication. found to have a spinal cord concussion and transferred out to [facility]. Patient did undergo surgery at [facility] was then in rehab. Did well subsequently. Patient subsequently has gone back on taking alcohol. Lives at admissions for alcohol withdrawal. Patient now presents with 3 days of nausea vomiting increasing abdominal pain. Also had some blood in the vomitus. Does not remember when was the last time she had a bowel movement. No fever no chills. Poor appetite. Shaky trembling finding it difficult to walk because of the same. Patient's also drinks alcohol. Review of systems: GEN.: Tired EYES: None HEENT: None NECK: None RESPIRATORY: Some shortness of breath and wheezing CARDIOVASCULAR: None GASTROINTESTINAL: As above GENITOURINARY: None MUSCULOSKELETAL: Chronic left shoulder pain] LYMPHATICS: None HEMATOLOGICAL: None PSYCHIATRY: Anxious NEUROLOGICAL: Tremors and therefore difficulty walking Past medical history to include: Spinal cord concussion secondary to fall, chronic alcohol syndrome, chronic nicotine dependence, Social history: Lives with her ,'s drinks at least a pint of whiskey a day, smoking half a pack a day since 1997 Physical examination: VITAL SIGNS: 99.3, 101, 18, 148/93, 9 6% room air GENERAL: BMI 24.5, somewhat disheveled, anxious EYES: Pupils equal. Conjunctiva normal. HEENT: External appearance of nose and ears normal, oral cavity grossly normal. NECK: JVD not raised; masses not palpable. HEART: First and second heart sounds are normal; no edema. LUNGS:[ Respiratory rate increased; decreased breath sounds, mild wheezing. ABDOMEN: Soft, mildly distended left-sided tenderness, no guarding rigidity liver spleen not palpable, no masses palpable. PSYCH: Alert and oriented x3; mood and affect anxious. NEUROLOGICAL: Cranial nerves grossly intact; no facial asymmetry, power and s ensation grossly intact. Significant tremors and shaking LYMPHATICS: No lymph nodes palpable in the axilla and neck. INVESTIGATIONS, reviewed in the clinical context: WBC 12.7 hemoglobin 15.6 platelets 105 potassium 4 creatinine 0.6 Lactic acid 4.1 AST 162 ALT 82 Serum alcohol 289 Coronavirus [PCR]-not detected EKG tracing personally reviewed by me-normal sinus rhythm, rate of 102 Computed tomography scan of the abdomen: Hepatic steatosis Assessment and plan: -Patient presents with 3 days of nausea vomiting some blood in the vomitus. Most likely severe gastritis, peptic ulcer disease possible, secondary to alcoholism Clear liquids. IV PPI. Tums -Acute alcohol intoxication, POA Watch for withdrawals. - alcohol withdrawal syndrome, POA CIWA scale. Valium 5 mg 3 times a day. Lopressor 12.5 mg 3 times a day to cut back sympathetic drive -Alcohol use disorder We will have further discussion with the patient about the same and more sober -Chronic nicotine dependence, patient's cigarette smoker Nicotine patch -Alcoholic hepatitis Follow LFTs -Chronic left shoulder pain Pain controlled -Alcoholic myopathy, causing gait dysfunction Fall precautions. -Metabolic acidosis At IV white count but it to IV fluids -Type II lactic acidosis Hydrate patient Care was discussed with the patient. CIWA scale. Valium. Lopressor. Fall precautions. GI consulted. IV fluids with bicarbonate. 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 History of Any Multi-Drug Resistant Organisms: None Reported Past Surgical History: Back Surgery Additional Past Surgical History / Comment(s): Cervical surgery at [facility] d/t injury, colonoscopies/benign polypectomy Past Anesthesia/Blood Transfusion Reactions: No Reported Reaction, Motion Sickness Additional Past Anesthesia/Blood Transfusion Reaction / Comment(s): PT has clausterphobia. Past Psychological History: Anxiety, Depression Smoking Status: Current every day smoker Past Alcohol Use History: Abuse, Daily, Heavy Past Drug Use History: None Reported - Past Family History Mother Family Medical History: Cancer Additional Family Medical History / Comment(s): Mother of melanoma Father Family Medical History: No Reported History Additional Family Medical History / Comment(s): Father is healthy Medications and Allergies Home Medications Medication Instructions Recorded Confirmed Type Tfhtito-Ttmo-Bvhh [id number] 1 - 2 tab PO Q4HR PRN 05/01/20 01/29/21 History [Excedrin] Fexofenadine/Pseudoephedrine 1 tab PO DAILY 05/01/20 01/29/21 History [Katarzyna-D 24 Hour Tablet] Multivitamins, Thera [Multivitamin 1 tab PO DAILY 05/01/20 01/29/21 History (formulary)] Vitamin B Complex 1 cap PO DAILY 05/01/20 01/29/21 History Calcium/Magnesium/Zinc 1 tab PO DAILY 07/23/20 01/29/21 History [Jrbnzsl-Rcitveapu-Gvnr Tablet] Allergies Allergy/AdvReac Type Severity Reaction Status Date / Time shellfish derived [Shellfish] Allergy Severe Dyspnea Verified 01/29/21 10:22 iodine Allergy Rash/Hives Verified 01/29/21 10:22 Sulfa (Sulfonamide Allergy Rash/Hives Verified 01/29/21 10:22 Antibiotics) Physical Exam Vitals: Vital Signs Temp Pulse Resp BP Pulse Ox 01/29/21 19:27 98.0 F 93 17 168/92 97 01/29/21 15:18 101 H 16 170/108 97 01/29/21 09:16 99.3 F 101 H 18 148/93 96 Intake and Output 01/29/21 01/29/21 01/29/21 06:59 14:59 22:59 Other: Weight 75.296 kg Results CBC & Chem 7: 01/29/21 10:07 01/29/21 10:07 Labs: Abnormal Lab Results - Last 24 Hours (Table) 01/29/21 01/29/21 01/29/21 Range/Units 10:07 10:07 10:07 WBC 12.7 H (3.8-10.6) k/uL Plt Count 105 L (150-450) k/uL Neutrophils # 11.8 H (1.3-7.7) k/uL Lymphocytes # 0.6 L (1.0-4.8) k/uL APTT 20.6 L (22.0-30.0) sec Carbon Dioxide 15 L (22-30) mmol/L Glucose 146 H (74-99) mg/dL Plasma Lactic Acid Samuel (0.7-2.0) mmol/L AST 162 H (14-36) U/L ALT 82 H (4-34) U/L Albumin 5.1 H (3.5-5.0) g/dL Urine Protein (Negative) Urine Ketones (Negative) Urine Blood (Negative) Ur Squamous Epith Cells (0-4) /hpf Urine Bacteria (None) /hpf Hyaline Casts (0-2) /lpf Urine Mucus (None) /hpf Serum Alcohol 289 H* mg/dL 01/29/21 01/29/21 01/29/21 Range/Units 10:07 10:58 12:40 WBC (3.8-10.6) k/uL Plt Count (150-450) k/uL Neutrophils # (1.3-7.7) k/uL Lymphocytes # (1.0-4.8) k/uL APTT (22.0-30.0) sec Carbon Dioxide (22-30) mmol/L Glucose (74-99) mg/dL Plasma Lactic Acid Samuel 4.1 H* 2.6 H* (0.7-2.0) mmol/L AST (14-36) U/L ALT (4-34) U/L Albumin (3.5-5.0) g/dL Urine Protein 1+ H (Negative) Urine Ketones 1+ H (Negative) Urine Blood Large H (Negative) Ur Squamous Epith Cells 6 H (0-4) /hpf Urine Bacteria Rare H (None) /hpf Hyaline Casts 6 H (0-2) /lpf Urine Mucus Rare H (None) /hpf Serum Alcohol mg/dL
[2021-01-29] MEDS ORDERED: LORazepam 2 MG/ML INJ IV PRN (22:38)
[2021-01-29] MEDS: LORazepam 2 MG/ML INJ IV PRN (23:10)
[2021-01-29] MEDS: cloNIDine HCL 0.1 MG TAB PO SCH (23:11)
[2021-01-29] MEDS: CALCIUM CARBONATE LIQUID 500 MG/5 ML CUP PO SCH (23:11)
[2021-01-29] MEDS: NICOTINE 7MG/24HR PATCH TRANSDERM SCH (23:19)
[2021-01-29] MEDS: ENOXAPARIN 40 MG/0.4 ML SYRINGE SQ SCH (23:19)
[2021-01-29] MEDS: MAGNESIUM OXIDE 400 MG TAB PO SCH (23:19)
[2021-01-30] MEDS: DEXTROSE 5%-0.45% NACL 1,000 ML with SODIUM BICARB (1 MEQ/ML) 50 ML IV SCH ×8 (00:19→21:36)
[2021-01-30] MEDS: LORazepam 2 MG/ML INJ IV PRN ×5 (02:03→16:25)
[2021-01-30] MEDS: HYDROmorphone 0.5 MG/0.5 ML SYRINGE IVP PRN ×5 (03:15→23:44)
[2021-01-30 06:27] LABS: African American GFR (CKD) >90 (>60 ml/min/1.73 sqM); Anion Gap 15 mmol/L; Blood Urea Nitrogen 6 mg/dL (7-17); Calcium 8.4 mg/dL (8.4-10.2); Carbon Dioxide 20 mmol/L (22-30); Chloride 96 mmol/L (98-107); Glucose 248 mg/dL (74-99); Magnesium 1.3 mg/dL (1.6-2.3); Non-African American GFR(CKD) >90 (>60 ml/min/1.73 sqM); Potassium 4.7 mmol/L (3.5-5.1); Sodium 131 mmol/L (137-145)
[2021-01-30 08:59] LABS: HCT 39.5 % (34.0-46.0); HGB 13.4 gm/dL (11.4-16.0); MCH 31.6 pg (25.0-35.0); MCHC 33.8 g/dL (31.0-37.0); MCV 93.5 fL (80.0-100.0); Mean Platelet Volume 9.1; RBC 4.22 m/uL (3.80-5.40); RDW 13.1 % (11.5-15.5)
[2021-01-30 09:33] LABS: Platelet Count 78 k/uL (150-450)
[2021-01-30] MEDS: NICOTINE 7MG/24HR PATCH TRANSDERM SCH ×2 (09:49→14:40)
[2021-01-30] MEDS: CALCIUM CARBONATE LIQUID 500 MG/5 ML CUP PO SCH ×3 (09:49→17:55)
[2021-01-30] MEDS: MULTIVITAMINS, THERA 1 EACH TAB PO SCH (09:49)
[2021-01-30] MEDS: MAGNESIUM OXIDE 400 MG TAB PO SCH ×2 (09:49→19:54)
[2021-01-30] MEDS: cloNIDine HCL 0.1 MG TAB PO SCH ×2 (09:49→19:55)
[2021-01-30] MEDS: PANTOPRAZOLE 40 MG/10 ML VIAL IV SCH ×2 (09:49→19:54)
[2021-01-30] MEDS: METOPROLOL TARTRATE 12.5 MG TAB PO SCH ×3 (09:49→21:51)
[2021-01-30] MEDS: diazePAM 5 MG TAB PO SCH (11:27)
[2021-01-30] MEDS: THIAMINE 100 MG TAB PO SCH (11:28)
[2021-01-30] MEDS ORDERED: Magnesium Replacement Protocol 1 EACH MISC MISCELLANE PRN (11:57)
--- NOTE | 2021-01-30 12:11 | P.PN ---
Progress Note - Text Progress Note Date: 01/30/21 Chief Complaint: Abdominal pain History of presenting complaint: This is a 60-year-old patient . admitted here on 2019. admitted following a fall for alcohol intoxication. found to have a spinal cord concussion and transferred out to [facility]. Patient did undergo surgery at [facility] was then in rehab. Did well subsequently. Patient subsequently has gone back on taking alcohol. Lives at admissions for alcohol withdrawal. Patient now presents with 3 days of nausea vomiting increasing abdominal pain. Also had some blood in the vomitus. Does not remember when was the last time she had a bowel movement. No fever no chills. Poor appetite. Shaky trembling finding it difficult to walk because of the same. Patient's also drinks alcohol. Admitted with upper GI bleed. [place] to be gastritis/total ulcer from alcoholism. Alcohol withdrawal. Patient placed on CIWA scale, Valium, beta radha. Today: Laying in bed. Less Shaky. A bit more settled down. Anxious. Pending GI evaluation. Review of systems: Was done for constitutional, cardiovascular, GI, pulmonary. relevant finding as above Active Medications Calcium Carbonate/Glycine (Calcium Carbonate Liquid 500 Mg/5 Ml Cup) 500 mg PO TID-W/MEALS [facility] Last Admin: 01/30/21 09:49 Dose: 500 mg Documented by: Clonidine (Clonidine Hcl 0.1 Mg Tab) 0.1 mg PO BID [facility] Last Admin: 01/30/21 09:49 Dose: 0.1 mg Documented by: Diazepam (Diazepam 5 Mg Tab) 5 mg PO TID [facility] Last Admin: 01/30/21 11:27 Dose: Not Given Documented by: Enoxaparin Sodium (Enoxaparin 40 Mg/0.4 Ml Syringe) 40 mg SQ DAILY@2100 [facility] Last Admin: 01/29/21 23:19 Dose: 40 mg Documented by: Hydromorphone HCl (Hydromorphone 0.5 Mg/0.5 Ml Syringe) 0.5 mg IVP Q3HR PRN PRN Reason: Pain Last Admin: 01/30/21 04:13 Dose: 0.5 mg Documented by: Sodium Bicarbonate 50 ml/ (Dextrose/Sodium Chloride) 1,050 mls @ 125 mls/hr IV .Q8H24M [facility] Last Admin: 01/30/21 11:53 Dose: 125 mls/hr Documented by: Magnesium Sulfate/Dextrose 1 (gm/ IV Solution) 100 mls @ 100 mls/hr IVPB Q1H [facility] Stop: 01/30/21 14:59 Lorazepam (Lorazepam 2 Mg/Ml Inj) 2 mg IV Q2HR PRN PRN Reason: Anxiety Last Admin: 01/30/21 09:48 Dose: 2 mg Documented by: Lorazepam (Lorazepam 2 Mg/Ml Inj) 1 mg IV Q4HR PRN PRN Reason: Anxiety Magnesium Oxide (Magnesium Oxide 400 Mg Tab) 400 mg PO BID [facility] Last Admin: 01/30/21 09:49 Dose: 400 mg Documented by: Metoprolol Tartrate (Metoprolol Tartrate 12.5 Mg Tab) 12.5 mg PO TID [facility] Last Admin: 01/30/21 09:49 Dose: 12.5 mg Documented by: Miscellaneous Information (Magnesium Replacement Protocol 1 Each Misc) 1 each MISCELLANE DAILY PRN; Protocol PRN Reason: Per Protocol Multivitamins (Multivitamins, Thera 1 Each Tab) 1 each PO DAILY [facility] Last Admin: 01/30/21 09:49 Dose: 1 each Documented by: Naloxone HCl (Naloxone 0.4 Mg/Ml 1 Ml Vial) 0.2 mg IV Q2M PRN PRN Reason: Opioid Reversal Nicotine (Nicotine 7mg/24hr Patch) 1 patch TRANSDERM DAILY [facility] Last Admin: 01/30/21 09:49 Dose: 1 patch Documented by: Ondansetron HCl (Ondansetron 4 Mg/2 Ml Vial) 4 mg IVP Q8HR PRN PRN Reason: Nausea And Vomiting Last Admin: 01/29/21 23:08 Dose: 4 mg Documented by: Pantoprazole Sodium (Pantoprazole 40 Mg/10 Ml Vial) 40 mg IV BID [facility] Last Admin: 01/30/21 09:49 Dose: 40 mg Documented by: Thiamine HCl (Thiamine 100 Mg Tab) 100 mg PO DAILY [facility] Last Admin: 01/30/21 11:28 Dose: 100 mg Documented by: Past medical history to include: Spinal cord concussion secondary to fall, chronic alcohol syndrome, chronic nicotine dependence, Social history: Lives with her ,'s drinks at least a pint of whiskey a day, smoking half a pack a day since 1997 Physical examination: VITAL SIGNS: 97.9, 80, 18, 154/87, 98% room air GENERAL: Laying in bed, slightly more relaxed today EYES: Pupils equal. Conjunctiva normal. NECK: JVD not raised; masses not palpable. HEART: First and second heart sounds are normal; no edema. LUNGS:[ Respiratory rate increased; decreased breath sounds, mild wheezing. ABDOMEN: Soft, mildly distended left-sided tenderness, no guarding rigidity liver spleen not palpable, no masses palpable. PSYCH: Alert and oriented x3; mood and affect anxious. NEUROLOGICAL: Cranial nerves grossly intact; no facial asymmetry, power and sensation grossly intact. Decreased tremors INVESTIGATIONS, reviewed in the clinical context: January 30: WBC 6 hemoglobin 13.4 potassium 4.7 creatinine 0.36 WBC 12.7 hemoglobin 15.6 platelets 105 potassium 4 creatinine 0.6 Lactic acid 4.1 AST 162 ALT 82 Serum alcohol 289 Coronavirus [PCR]-not detected EKG tracing personally reviewed by me-normal sinus rhythm, rate of 102 Computed tomography scan of the abdomen: Hepatic steatosis Assessment and plan: -Patient presents with 3 days of nausea vomiting some blood in the vomitus. Most likely severe gastritis, peptic ulcer disease possible, secondary to alcoholism Clear liquids. IV PPI. Tums. Pending GI evaluation -Acute alcohol intoxication, POA Watch for withdrawals. - alcohol withdrawal syndrome, POA CIWA scale. Valium 5 mg 3 times a day. Lopressor 12.5 mg 3 times a day to cut back sympathetic drive. Decrease Valium -Alcohol use disorder We will have further discussion with the patient about the same and more sober -Chronic nicotine dependence, patient's cigarette smoker Nicotine patch -Alcoholic hepatitis Follow LFTs -Chronic left shoulder pain Pain controlled -Alcoholic myopathy, causing gait dysfunction Fall precautions. -Metabolic acidosis Sodium bicarbonate added to IV fluids. Bicarbonate 20 -Type II lactic acidosis Hydrate patient -Thrombocytopenia from alcoholism Follow platelets [place] discussed with the patient. Awaiting GI input. Cutback Valium 2 mg daily times a day.
[2021-01-30] MEDS: MAGNESIUM SULFATE-D5W PMX 1 GM in DEXTROSE/WATER 1 100ML.BAG IVPB SCH ×3 (12:39→17:53)
--- NOTE | 2021-01-30 15:05 | P.CONS ---
History of Present Illness - Reason for Consult Consult date: 01/30/21 Hematemesis Requesting physician: Oswaldo Rush - Chief Complaint Alcohol intoxication, abdominal pain, nausea and vomiting - History of Present Illness Pleasant 60-year-old female who presented to the emergency department with alcohol intoxication the serum alcohol level of 289. She came in because she stated she had abdominal pain with nausea and vomiting. She states she had several episodes yesterday of vomiting. States after vomiting several times she had one episode with streaks of blood. She states otherwise it was bile-like and clear liquid. She has a history of heavy alcohol abuse and has been a daily drinker for the last at least 10 years for which she states she drinks 1-2 pints per day. She came in with theWA core of 15. She denies any history of upper GI bleed, peptic ulcer disease, GERD, or previous EGD. She denies any blood th inners. She did have a colonoscopy in 2019 for history of polyps. Today's labs include WBC 6, hemoglobin 13.4, hematocrit 39.5, platelets 78,000. Total bilirubin 0.7, alkaline phosphatase 70, AST 162, ALT 82, amylase 64, lipase 196. Patient denies any previous history of any liver disease. She had a CT of the abdomen which showed no calcified gallstones. There is evidence of hepatic steatosis. No space-occupying hepatic lesion. Biliary tree is of normal caliber. Today she states her abdominal pain has improved significantly, she has had no further vomiting. There is been no reported dark or black stools. She remains on [facility] protocol. Review of Systems REVIEW OF SYSTEMS: CARDIOPULMONARY: No chest pain or shortness of breath. Gastrointestinal: Reported abdominal pain abdominal pain. Positive nausea or vomiting. The time of symptoms. No rectal bleeding, or melena. GENITOURINARY: No dysuria or hematuria. MUSCULOSKELETAL: Reports normal range of motion., Joint pain. SKIN: No rashes. No jaundice. ENDOCRINE: No chills, fevers. No excessive weight gain or loss. No polydipsia or polyuria. PSYCHIATRIC: Unremarkable. NEUROLOGY: No change in mental status. Denies dizziness, headache. Alcohol intoxication. ENT: Vision unremarkable. CONSTITUTIONAL: No recent weight loss. No fever, chills, night sweats. 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 History of Any Multi-Drug Resistant Organisms: None Reported Past Surgical History: Back Surgery Additional Past Surgical History / Comment(s): Cervical surgery at [facility] d/t injury, colonoscopies/benign polypectomy Past Anesthesia/Blood Transfusion Reactions: No Reported Reaction, Motion Sickness Additional Past Anesthesia/Blood Transfusion Reaction / Comm: PT has clausterphobia. Past Psychological History: Anxiety, Depression Additional Psychological History / Comment(s): Pt resides with her spouse. She is independent. Smoking Status: Current every day smoker Past Alcohol Use History: Abuse, Daily, Occasional Additional Past Alcohol Use History / Comment(s): Pt started smoking in 1997 and a pack will last 4 days. Pt drinks on average a pint of whiskey per day-she has quit several times and once quit for 5 yrs. Past Drug Use History: None Reported - Past Family History Mother Family Medical History: Cancer Additional Family Medical History / Comment(s): Mother of melanoma Father Family Medical History: No Reported History Additional Family Medical History / Comment(s): Father is healthy Medications and Allergies Home Medications Medication Instructions Recorded Confirmed Type Yhaxpuo-Iegr-Pxtd [id number] 1 - 2 tab PO Q4HR PRN 05/01/20 01/29/21 History [Excedrin] Fexofenadine/Pseudoephedrine 1 tab PO DAILY 05/01/20 01/29/21 History [Katarzyna-D 24 Hour Tablet] Multivitamins, Thera [Multivitamin 1 tab PO DAILY 05/01/20 01/29/21 History (formulary)] Vitamin B Complex 1 cap PO DAILY 05/01/20 01/29/21 History Calcium/Magnesium/Zinc 1 tab PO DAILY 07/23/20 01/29/21 History [Ltftqvu-Cjjlmefhf-Iglw Tablet] Allergies Allergy/AdvReac Type Severity Reaction Status Date / Time shellfish derived [Shellfish] Allergy Severe Dyspnea Verified 01/29/21 10:22 iodine Allergy Rash/Hives Verified 01/29/21 10:22 Sulfa (Sulfonamide Allergy Rash/Hives Verified 01/29/21 10:22 Antibiotics) Physical Exam Vitals: Vital Signs Temp Pulse Pulse Resp BP BP Pulse Ox 01/30/21 08:00 19 01/30/21 07:53 97.9 F 80 18 154/87 98 01/30/21 02:00 98.0 F 78 17 163/93 96 01/29/21 23:15 22 01/29/21 22:35 88 18 165/90 96 01/29/21 22:08 98.4 F 96 20 171/98 96 01/29/21 19:27 98.0 F 93 17 168/92 97 01/29/21 15:18 101 H 16 170/108 97 Intake and Output 01/29/21 01/30/21 01/30/21 22:59 06:59 14:59 Intake Total 700 20 Output Total 2 Balance 698 20 Intake: Intake, IV Titration 500 Amount Dextrose 5%-0.45% NaCl 1, 500 000 ml @ 125 mls/hr IV . Q8H24M DANNI with Sodium Bicarb (1 Meq/ml) 50 ml Rx#:[id number] Oral 200 20 Output: Urine 2 Other: Voiding Method Diaper Weight 75.296 kg General appearance: The patient is alert, oriented, appears in no acute distress. HET: Head is normocephalic and atraumatic. Conjunctiva pink. Sclera anicteric. Oropharynx is clear without lesions. Neck: Supple without lymphadenopathy. Trachea midline. Heart: S1 S2. Regular rate and rhythm. Lungs: Clear to auscultation. Abdomen: Soft, nontender, nondistended with bowel sounds. Guarding or rigidity. Skin: No jaundice. Extremities: Normal skin color and turgor. Pedal edema. Neurological: Alert and oriented, however drowsy, recently medicated with Ativan Results CBC & Chem 7: 01/30/21 05:33 01/30/21 05:33 Labs: Abnormal Lab Results - Last 24 Hours (Table) 01/29/21 01/30/21 01/30/21 Range/Units 12:40 05: 05:33 Plt Count 78 L (150-450) k/uL Sodium 131 L (137-145) mmol/L Chloride 96 L (98-107) mmol/L Carbon Dioxide 20 L (22-30) mmol/L BUN 6 L (7-17) mg/dL Creatinine 0.36 L (0.52-1.04) mg/dL Glucose 248 H (74-99) mg/dL Plasma Lactic Acid Samuel 2.6 H* (0.7-2.0) mmol/L Magnesium 1.3 L (1.6-2.3) mg/dL CT scan - abdomen: report reviewed (Hepatic steatosis. No acute process identified) Assessment and Plan (1) Hematemesis Narrative/Plan: Assessment 60-year-old female who presented to the emergency department with complaints of abdominal pain nausea, and vomiting. She came in with alcohol intoxication with a significant history of alcohol abuse admitting to point to 2 pints daily for at least the last 10 years. She states she has no previous history of upper GI bleed, peptic ulcer disease or GERD. She had multiple episodes of vomiting yesterday for which she states she had one episode with streaks of blood but no gross hematuria. She's had no further nausea or vomiting today, abdominal pain has improved. She has a history of colon polyps and underwent a colon screening in 2019 significant for colon polyps with polypectomy. She is never underwent an upper endoscopy. She states she has no history of esophageal varices or known liver disease. Hemoglobin has been stable. Likely we are dealing with a Anuradha-Ramesh tear due to all the retching and vomiting, however have to also consider other etiologies such as gastritis, esophagitis, esophageal varices, peptic ulcer disease or other etiology. There are no plans at this time for any endoscopic evaluation unless patient has further drop in hemoglobin or evidence of GI bleed. Current Visit: Yes Status: Acute Code(s): K92.0 - HEMATEMESIS SNOMED Code(s): 7702184 (2) Abdominal pain Current Visit: Yes Status: Acute Code(s): R10.9 - UNSPECIFIED ABDOMINAL PAIN SNOMED Code(s): 73497714 (3) Alcohol intoxication Current Visit: Yes Status: Acute Code(s): F10.929 - ALCOHOL USE, UNSPECIFIED WITH INTOXICATION, UNSPECIFIED SNOMED Code(s): 32234823 (4) Alcohol withdrawal Current Visit: Yes Status: Acute Code(s): F10.239 - ALCOHOL DEPENDENCE WITH WITHDRAWAL, UNSPECIFIED SNOMED Code(s): 562575982 Plan: Continue symptomatic and supportive care Continue [facility] protocol Repeat CBC in the morning Protonix 40 mg IV twice a day Alcohol cessation No plans for endoscopic evaluation at this time, continue monitoring for signs and symptoms of upper GI bleed. Patient reports vomiting with only small streaks of blood 1, likely related to a Anuradha-Ramesh tear. Thank you for this consultation, we will continue to follow Dr. Nielsen I agree with the dictator's note, documented as a scribe by Aspen Martinez.
[2021-01-30] MEDS: diazePAM 2 MG TAB PO SCH ×2 (17:15→22:10)
--- NOTE | 2021-01-30 18:23 | P.CNPUL ---
History of Present Illness Consult date: 01/30/21 Reason for consult: dyspnea Chief complaint: Altered mental status and generalized weakness History of present illness: Patient is a 60-year-old pleasant female came into the hospital from the emergency department with problems associated with alcohol intoxication, on arrival patient noted to have elevated WBC count 12,700, mild thrombocytopenia with platelet count of 105, patient also has evidence of acute metabolic acidosis however improve also with rehydration, patient has intermittent runs of ventricular tachycardia mental status was marginal also has significant electrolyte imbalance, alcohol level was 289 magnesium was noted to be 1, patient has been placed on CIWA protocol with as needed Ativan, now patient is more awake and arousable follow simple commands, patient has been getting IV fluids, has been on DVT prophylaxis, also thiamine and MVI she has extensive history of smoking placed on nicotine patch, lactic acid arrival was 2.6 came down to 1.9, dennis PCR is negative, Review of Systems All systems: negative Past Medical History Past Medical History: Hypertension, Osteoarthritis (OA) Additional Past Medical History / Comment(s): FallSeptember 2019 with neck injury/L arm weak/decreased sensation and weakness to L leg-sent to [facility] and had cervical surgery, chronic cervical/L shoulder pain since surgery, chronic low back pain for years, ETOH abuse-pt states she has had withdrawals/shaki ng/weakness/nausea/one seizure long ago, alcoholic hepatitis, 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 History of Any Multi-Drug Resistant Organisms: None Reported Past Surgical History: Back Surgery Additional Past Surgical History / Comment(s): Cervical surgery at [facility] d/t injury, colonoscopies/benign polypectomy Past Anesthesia/Blood Transfusion Reactions: No Reported Reaction, Motion Sickness Additional Past Anesthesia/Blood Transfusion Reaction / Comment(s): PT has cla usterphobia. Past Psychological History: Anxiety, Depression Additional Psychological History / Comment(s): Pt resides with her spouse. She is independent. Smoking Status: Current every day smoker Past Alcohol Use History: Abuse, Daily, Occasional Additional Past Alcohol Use History / Comment(s): Pt started smoking in 1997 and a pack will last 4 days. Pt drinks on average a pint of whiskey per day-she has quit several times and once quit for 5 yrs. Past Drug Use History: None Reported - Past Family History Mother Family Medical History: Cancer Additional Family Medical History / Comment(s): Mother of melanoma Father Family Medical History: No Reported History Additional Family Medical History / Comment(s): Father is healthy Medications and Allergies Home Medications Medication Instructions Recorded Confirmed Type Vgatcgc-Jmsr-Tkug [id number] 1 - 2 tab PO Q4HR PRN 05/01/20 01/29/21 History [Excedrin] Fexofenadine/Pseudoephedrine 1 tab PO DAILY 05/01/20 01/29/21 History [Katarzyna-D 24 Hour Tablet] Multivitamins, Thera [Multivitamin 1 tab PO DAILY 05/01/20 01/29/21 History (formulary)] Vitamin B Complex 1 cap PO DAILY 05/01/20 01/29/21 History Calcium/Magnesium/Zinc 1 tab PO DAILY 07/23/20 01/29/21 History [Baylldb-Axaiqfpvn-Fybz Tablet] Allergies Allergy/AdvReac Type Severity Reaction Status Date / Time shellfish derived [Shellfish] Allergy Severe Dyspnea Verified 01/29/21 10:22 iodine Allergy Rash/Hives Verified 01/29/21 10:22 Sulfa (Sulfonamide Allergy Rash/Hives Verified 01/29/21 10:22 Antibiotics) Physical Exam Vitals: Vital Signs Temp Pulse Pulse Resp BP BP Pulse Ox 01/30/21 14:00 97.7 F 77 20 144/84 98 01/30/21 08:00 19 01/30/21 07:53 97.9 F 80 18 154/87 98 01/30/21 02:00 98.0 F 78 17 163/93 96 01/29/21 23:15 22 01/29/21 22:35 88 18 165/90 96 01/29/21 22:08 98.4 F 96 20 171/98 96 01/29/21 19:27 98.0 F 93 17 168/92 97 Intake and Output 01/30/21 01/30/21 01/30/21 06:59 14:59 22:59 Intake Total 700 20 Output Total 2 Balance 698 20 Intake: Intake, IV Titration 500 Amount Dextrose 5%-0.45% NaCl 1, 500 000 ml @ 125 mls/hr IV . Q8H24M DANNI with Sodium Bicarb (1 Meq/ml) 50 ml Rx#:[id number] Oral 200 20 Output: Urine 2 Other: Voiding Method Diaper # Voids 1 - Constitutional General appearance: average body habitus, cooperative, disheveled - EENT Eyes: PERRLA Ears: bilateral: normal - Neck Neck: normal ROM Carotids: bilateral: upstroke normal Thyroid: bilateral: normal size - Respiratory Respiratory: bilateral: CTA - Cardiovascular Rhythm: regular Heart sounds: normal: S1, S2 - Gastrointestinal General gastrointestinal: distended, soft - Integumentary Integumentary: normal turgor - Neurologic Neurologic: CNII-XII intact - Musculoskeletal Musculoskeletal: gait normal, generalized weakness, strength equal bilaterally - Psychiatric Psychiatric: A&O x's 3, appropriate affect, intact judgment & insight Results - Laboratory Findings CBC and BMP: 01/30/21 05:33 01/30/21 05:33 PT/INR, D-dimer PT 10.2 sec (9.0-12.0) 01/29/21 10:07 INR 0.9 (<1.2) 01/29/21 10:07 Abnormal lab findings: Abnormal Labs 01/29/21 01/29/21 01/29/21 10:07 10:07 10:07 WBC 12.7 H Plt Count 105 L Neutrophils # 11.8 H Lymphocytes # 0.6 L APTT 20.6 L Sodium Chloride Carbon Dioxide 15 L BUN Creatinine Glucose 146 H Plasma Lactic Acid Samuel Magnesium AST 162 H ALT 82 H Albumin 5.1 H Urine Protein Urine Ketones Urine Blood Ur Squamous Epith Cells Urine Bacteria Hyaline Casts Urine Mucus Serum Alcohol 289 H* 01/29/21 01/29/21 01/29/21 10:07 10:58 12:40 WBC Plt Count Neutrophils # Lymphocytes # APTT Sodium Chloride Carbon Dioxide BUN Creatinine Glucose Plasma Lactic Acid Samuel 4.1 H* 2.6 H* Magnesium AST ALT Albumin Urine Protein 1+ H Urine Ketones 1+ H Urine Blood Large H Ur Squamous Epith Cells 6 H Urine Bacteria Rare H Hyaline Casts 6 H Urine Mucus Rare H Serum Alcohol 01/30/21 01/30/21 05:33 05:33 WBC Plt Count 78 L Neutrophils # Lymphocytes # APTT Sodium 131 L Chloride 96 L Carbon Dioxide 20 L BUN 6 L Creatinine 0.36 L Glucose 248 H Plasma Lactic Acid Samuel Magnesium 1.3 L AST ALT Albumin Urine Protein Urine Ketones Urine Blood Ur Squamous Epith Cells Urine Bacteria Hyaline Casts Urine Mucus Serum Alcohol Assessment and Plan Assessment: Lactic acidosis likely related to volume depletion dehydration Acute metabolic acidosis, improved Altered mental status likely related to alcohol intoxication Intermittent runs of wide complex tachycardia due to electrolyte imbalance and hypomagnesemia however alcohol-related cardiomyopathy cannot be excluded cardiovascular services have been consulted Alcoholic liver disease Electrolyte imbalance with hypomagnesemia and hyponatremia Plan: Continue thiamine and folic acid and MVI as per protocol Continue gentle rehydration Replace magnesium Time with Patient: Greater than 30
[2021-01-30] MEDS: ENOXAPARIN 40 MG/0.4 ML SYRINGE SQ SCH (19:54)
[2021-01-31] MEDS: HYDROmorphone 0.5 MG/0.5 ML SYRINGE IVP PRN ×2 (03:09→07:50)
[2021-01-31] MEDS: DEXTROSE 5%-0.45% NACL 1,000 ML with SODIUM BICARB (1 MEQ/ML) 50 ML IV SCH ×2 (04:25)
[2021-01-31 05:40] LABS: Basophils % (A) 0 %; Eosinophils # (A) 0.1 k/uL (0-0.7); Eosinophils % (A) 2 %; HCT 33.9 % (34.0-46.0); HGB 12.2 gm/dL (11.4-16.0); Lymphocytes # (A) 1.5 k/uL (1.0-4.8); Lymphocytes % (A) 30 %; MCH 33.4 pg (25.0-35.0); MCHC 35.9 g/dL (31.0-37.0); Mean Platelet Volume 8.4; Monocytes # (A) 0.2 k/uL (0-1.0); Monocytes % (A) 5 %; Neutrophils % (A) 63 %; RBC 3.65 m/uL (3.80-5.40); RDW 12.2 % (11.5-15.5); WBC 4.8 k/uL (3.8-10.6)
[2021-01-31 05:43] LABS: Platelet Count 54 k/uL (150-450)
[2021-01-31 05:52] LABS: ALT 69 U/L (4-34); AST 161 U/L (14-36); African American GFR (CKD) >90 (>60 ml/min/1.73 sqM); Albumin 3.6 g/dL (3.5-5.0); Albumin/Globulin Ratio 1.6; Alkaline Phosphatase 46 U/L (38-126); Anion Gap 4 mmol/L; Blood Urea Nitrogen 7 mg/dL (7-17); Calcium 7.9 mg/dL (8.4-10.2); Carbon Dioxide 30 mmol/L (22-30); Chloride 91 mmol/L (98-107); Globulin 2.3 g/dL; Glucose 117 mg/dL (74-99); Magnesium 1.8 mg/dL (1.6-2.3); Non-African American GFR(CKD) >90 (>60 ml/min/1.73 sqM); Potassium 3.1 mmol/L (3.5-5.1); Sodium 125 mmol/L (137-145); Total Bilirubin 1.1 mg/dL (0.2-1.3); Total Protein 5.9 g/dL (6.3-8.2)
[2021-01-31] MEDS: CALCIUM CARBONATE LIQUID 500 MG/5 ML CUP PO SCH ×3 (07:52→17:34)
[2021-01-31] MEDS: PANTOPRAZOLE 40 MG/10 ML VIAL IV SCH (07:52)
[2021-01-31] MEDS: THIAMINE 100 MG TAB PO SCH (07:55)
[2021-01-31] MEDS: MULTIVITAMINS, THERA 1 EACH TAB PO SCH (07:55)
[2021-01-31] MEDS: NICOTINE 7MG/24HR PATCH TRANSDERM SCH ×2 (07:55→07:57)
[2021-01-31] MEDS: METOPROLOL TARTRATE 12.5 MG TAB PO SCH ×3 (07:55→22:38)
[2021-01-31] MEDS: cloNIDine HCL 0.1 MG TAB PO SCH ×2 (07:55→22:38)
[2021-01-31] MEDS: diazePAM 2 MG TAB PO SCH ×3 (07:55→19:36)
[2021-01-31] MEDS: MAGNESIUM OXIDE 400 MG TAB PO SCH ×2 (07:55→19:36)
[2021-01-31] MEDS: SODIUM CHLORIDE 0.9% 1,000 ML IV SCH ×2 (11:11→17:34)
--- NOTE | 2021-01-31 12:55 | P.PN ---
Subjective Progress Note Date: 01/31/21 Principal diagnosis: Hematemesis, alcohol abuse Patient is seen in bed denying any further signs or symptoms of GI bleeding. Poor appetite but no nausea vomiting reported. Objective - Vital Signs Vital signs: Vital Signs Temp 98.3 F 01/31/21 07:32 Pulse 77 01/31/21 07:32 Resp 18 01/31/21 08:00 BP 127/76 01/31/21 07:32 Pulse Ox 96 01/31/21 07:32 Intake & Output 01/30/21 01/31/21 01/31/21 18:59 06:59 18:59 Intake Total 20 Balance 20 Intake: Oral 20 Other: Voiding Method Diaper Diaper # Voids 1 1 2 - Exam On physical examination, patient appears comfortable in no apparent distress. HEAD: Normocephalic, atraumatic. EYES: No scleral icterus. No conjunctival injection. MOUTH: No lesions, tongue midline. NECK: Trachea midline, no gross abnormalities. ABDOMEN: Soft, obese. Bowel sounds are positive. No organomegaly. No guarding or rigidity. EXTREMITIES: No pedal edema. SKIN: No rashes, no jaundice. NEUROLOGIC: Alert and oriented x3. Tremulousness but no asterixis noted. - Labs CBC & Chem 7: 01/31/21 05:11 01/31/21 05:11 Labs: Abnormal Lab Results - Last 24 Hours (Table) 01/31/21 01/31/21 Range/Units 05:11 05:11 RBC 3.65 L (3.80-5.40) m/uL Hct 33.9 L (34.0-46.0) % Plt Count 54 L (150-450) k/uL Sodium 125 L (137-145) mmol/L Potassium 3.1 L (3.5-5.1) mmol/L Chloride 91 L (98-107) mmol/L Creatinine 0.32 L (0.52-1.04) mg/dL Glucose 117 H (74-99) mg/dL Calcium 7.9 L (8.4-10.2) mg/dL AST 161 H (14-36) U/L ALT 69 H (4-34) U/L Total Protein 5.9 L (6.3-8.2) g/dL Assessment and Plan (1) Hematemesis Narrative/Plan: 60-year-old female who presented to the emergency department with complaints of abdominal pain nausea, and vomiting. She came in with alcohol intoxication with a significant history of alcohol abuse admitting to point to 2 pints daily for at least the last 10 years. She states she has no previous history of upper GI bleed, peptic ulcer disease or GERD. She had multiple episodes of vomiting yesterday for which she states she had one episode with streaks of blood but no gross hematuria. She's had no further nausea or vomiting today, abdominal pain has improved. She has a history of colon polyps and underwent a colon screening in 2019 significant for colon polyps with polypectomy. She is never underwent an upper endoscopy. She states she has no history of esophageal varices or known liver disease. Hemoglobin has been stable. Likely we are dealing with a Anuradha-Ramesh tear due to all the retching and vomiting, however have to also consider other etiologies such as gastritis, esophagitis, esophageal varices, peptic ulcer disease or other etiology. T No further signs or symptoms of GI bleeding and hemoglobin has remained stable. No nausea or vomiting but patient is reporting poor oral intake. Current Visit: Yes Status: Acute Code(s): K92.0 - HEMATEMESIS SNOMED Code(s): 1927130 (2) Abdominal pain Current Visit: Yes Status: Acute Code(s): R10.9 - UNSPECIFIED ABDOMINAL PAIN SNOMED Code(s): 47232028 (3) Alcohol intoxication Current Visit: Yes Status: Acute Code(s): F10.929 - ALCOHOL USE, UNSPECIFIED WITH INTOXICATION, UNSPECIFIED SNOMED Code(s): 65727947 (4) Alcohol withdrawal Current Visit: No Status: Acute Code(s): F10.239 - ALCOHOL DEPENDENCE WITH WITHDRAWAL, UNSPECIFIED SNOMED Code(s): 582039479 Plan: Continue symptomatic and supportive care Continue CIWA protocol Repeat CBC in the morning Protonix 40 mg IV twice a day Alcohol cessation No plans for endoscopic evaluation at this time, no further signs or symptoms of GI bleeding, we'll reevaluate if any further bleeding or precipitous fall in hemoglobin Thank you for this consultation, we will continue to follow
--- NOTE | 2021-01-31 16:19 | P.PN ---
Progress Note - Text Progress Note Date: 01/31/21 Chief Complaint: Abdominal pain History of presenting complaint: This is a 60-year-old patient . admitted here on 2019. admitted following a fall for alcohol intoxication. found to have a spinal cord concussion and transferred out to [facility]. Patient did undergo surgery at [facility] was then in rehab. Did well subsequently. Patient subsequently has gone back on taking alcohol. Lives at admissions for alcohol withdrawal. Patient now presents with 3 days of nausea vomiting increasing abdominal pain. Also had some blood in the vomitus. Does not remember when was the last time she had a bowel movement. No fever no chills. Poor appetite. Shaky trembling finding it difficult to walk because of the same. Patient's also drinks alcohol. Admitted with upper GI bleed. [place] to be gastritis/l ulcer from alcoholism. Al cohol withdrawal syndrome. Patient placed on CIWA scale, Valium, beta radha. PPI added. We GI conservative approach. Today: Patient barely eating. Drink a lot of water. Sodium was: 125. Tremors are better. Review of systems: Was done for constitutional, cardiovascular, GI, pulmonary. relevant finding as above Active Medications Calcium Carbonate/Glycine (Calcium Carbonate Liquid 500 Mg/5 Ml Cup) 500 mg PO TID-W/MEALS [facility] Last Admin: 01/31/21 12:16 Dose: Not Given Documented by: Clonidine (Clonidine Hcl 0.1 Mg Tab) 0.1 mg PO BID [facility] Last Admin: 01/31/21 07:55 Dose: 0.1 mg Documented by: Diazepam (Diazepam 2 Mg Tab) 2 mg PO TID [facility] Last Admin: 01/31/21 15:35 Dose: 2 mg Documented by: Enoxaparin Sodium (Enoxaparin 40 Mg/0.4 Ml Syringe) 40 mg SQ DAILY@2100 [facility] Last Admin: 01/30/21 19:54 Dose: 40 mg Documented by: Sodium Chloride (Saline 0.9%) 1,000 mls @ 130 mls/hr IV .Q7H42M [facility] Last Admin: 01/31/21 11:11 Dose: 130 mls/hr Documented by: Lorazepam (Lorazepam 2 Mg/Ml Inj) 2 mg IV Q2HR PRN PRN Reason: Anxiety Last Admin: 01/30/21 16:25 Dose: 2 mg Documented by: Lorazepam (Lorazepam 2 Mg/Ml Inj) 1 mg IV Q4HR PRN PRN Reason: Anxiety Last Admin: 01/31/21 00:52 Dose: 1 mg Documented by: Magnesium Oxide (Magnesium Oxide 400 Mg Tab) 400 mg PO BID [facility] Last Admin: 01/31/21 07:55 Dose: 400 mg Documented by: Metoprolol Tartrate (Metoprolol Tartrate 12.5 Mg Tab) 12.5 mg PO TID [facility] Last Admin: 01/31/21 15:35 Dose: 12.5 mg Documented by: Miscellaneous Information (Magnesium Replacement Protocol 1 Each Misc) 1 each MISCELLANE DAILY PRN; Protocol PRN Reason: Per Protocol Multivitamins (Multivitamins, Thera 1 Each Tab) 1 each PO DAILY [facility] Last Admin: 01/31/21 07:55 Dose: 1 each Documented by: Naloxone HCl (Naloxone 0.4 Mg/Ml 1 Ml Vial) 0.2 mg IV Q2M PRN PRN Reason: Opioid Reversal Nicotine (Nicotine 7mg/24hr Patch) 1 patch TRANSDERM DAILY [facility] Last Admin: 01/31/21 07:57 Dose: Not Given Documented by: Ondansetron HCl (Ondansetron 4 Mg/2 Ml Vial) 4 mg IVP Q8HR PRN PRN Reason: Nausea And Vomiting Last Admin: 01/29/21 23:08 Dose: 4 mg Documented by: Pantoprazole Sodium (Pantoprazole 40 Mg Tablet) 40 mg PO BID [facility] Thiamine HCl (Thiamine 100 Mg Tab) 100 mg PO DAILY [facility] Last Admin: 01/31/21 07:55 Dose: 100 mg Documented by: Past medical history to include: Spinal cord concussion secondary to fall, chronic alcohol syndrome, chronic nicotine dependence, Social history: Lives with her ,'s drinks at least a pint of whiskey a day, smoking half a pack a day since 1997 Physical examination: VITAL SIGNS: In the 8.3, 77, 18, 1 27 x 76, 96% room air GENERAL: Laying in bed, less anxious today EYES: Pupils equal. Conjunctiva normal. NECK: JVD not raised; masses not palpable. HEART: First and second heart sounds are normal; no edema. LUNGS:[ Respiratory rate increased; decreased breath sounds, mild wheezing. ABDOMEN: Soft, minimal distended, decreased left-sided tenderness, no guarding rigidity liver spleen not palpable, no masses palpable. PSYCH: Alert and oriented x3; mood and affect anxious. NEUROLOGICAL: Cranial nerves grossly intact; no facial asymmetry, power and sensation grossly intact. Decreased tremors INVESTIGATIONS, reviewed in the clinical context: January 31: WBC 4.8 hemoglobin 12.2 platelets 54 sodium 125 potassium 3.1 creatinine 0.3 to glucose 117 January 30: WBC 6 hemoglobin 13.4 potassium 4.7 creatinine 0.36 WBC 12.7 hemoglobin 15.6 platelets 105 potassium 4 creatinine 0.6 Lactic acid 4.1 AST 162 ALT 82 Serum alcohol 289 Coronavirus [PCR]-not detected EKG tracing personally reviewed by me-normal sinus rhythm, rate of 102 Computed tomography scan of the abdomen: Hepatic steatosis Assessment and plan: -Patient presents with 3 days of nausea vomiting some blood in the vomitus. Most likely severe gastritis, peptic ulcer disease possible, secondary to alcoholism Clear liquids. PPI. Tums. Seen by GI. Not for any endoscopic currently. Diet advanced to full liquids. -Moderate hyponatremia from excessive water intake. Patient not eating any food.-New diagnosis Change fluids to normal saline. Free fluid restriction. 1200 mL a day. Discussed with patient. -Acute alcohol intoxication, POA Watch for withdrawals. - alcohol withdrawal syndrome, POA CIWA scale. Lopressor 12.5 mg 3 times a day to cut back sympathetic drive. Decrease Valium to 1 mg 3 times a day. -Alcohol use disorder We will have further discussion with the patient about the same and more sober -Chronic nicotine dependence, patient's cigarette smoker Nicotine patch -Alcoholic hepatitis Follow LFTs -Chronic left shoulder pain Pain controlled -Alcoholic myopathy, causing gait dysfunction Fall precautions. PT OT -Metabolic acidosis-corrected Sodium bicarbonate added to IV fluids. Discontinue bicarbonate -Type II lactic acidosis Hydrate patient -Thrombocytopenia from alcoholism Follow platelets -Significant nausea is a combination of gastritis and from Dilaudid. DC Dilaudid. Cutback on Valium 21 mg times a day. Fluid restriction 1200 mL today. Change IV fluids to normal saline. PTOT.
[2021-01-31] MEDS: PANTOPRAZOLE 40 MG TABLET PO SCH (19:36)
[2021-01-31] MEDS: ENOXAPARIN 40 MG/0.4 ML SYRINGE SQ SCH (19:37)
[2021-02-01] MEDS ORDERED: ACETAMINOPHEN TAB 325 MG TAB PO PRN (00:28)
[2021-02-01] MEDS: MELATONIN 5 MG TABLET PO PRN (00:35)
[2021-02-01] MEDS: SODIUM CHLORIDE 0.9% 1,000 ML IV SCH ×3 (03:34→15:06)
[2021-02-01 06:22] LABS: African American GFR (CKD) >90 (>60 ml/min/1.73 sqM); Anion Gap 4 mmol/L; Blood Urea Nitrogen 3 mg/dL (7-17); Calcium 8.3 mg/dL (8.4-10.2); Carbon Dioxide 28 mmol/L (22-30); Chloride 100 mmol/L (98-107); Glucose 102 mg/dL (74-99); Non-African American GFR(CKD) >90 (>60 ml/min/1.73 sqM); Potassium 3.4 mmol/L (3.5-5.1); Sodium 132 mmol/L (137-145)
[2021-02-01] MEDS: CALCIUM CARBONATE LIQUID 500 MG/5 ML CUP PO SCH ×3 (08:18→16:55)
[2021-02-01] MEDS: NICOTINE 7MG/24HR PATCH TRANSDERM SCH (08:18)
[2021-02-01] MEDS: METOPROLOL TARTRATE 12.5 MG TAB PO SCH ×3 (08:32→22:27)
[2021-02-01] MEDS: MAGNESIUM OXIDE 400 MG TAB PO SCH ×2 (08:32→20:33)
[2021-02-01] MEDS: THIAMINE 100 MG TAB PO SCH (08:32)
[2021-02-01] MEDS: MULTIVITAMINS, THERA 1 EACH TAB PO SCH (08:32)
[2021-02-01] MEDS: cloNIDine HCL 0.1 MG TAB PO SCH ×2 (08:32→20:32)
[2021-02-01] MEDS: PANTOPRAZOLE 40 MG TABLET PO SCH ×2 (08:32→20:33)
[2021-02-01] MEDS: diazePAM 2 MG TAB PO SCH ×3 (08:32→20:34)
[2021-02-01] MEDS ORDERED: MAGNESIUM HYDROXIDE 2,400 MG/10 ML CUP PO PRN (12:34)
[2021-02-01] MEDS: POTASSIUM CHLORIDE ER 20 MEQ TAB.ER PO SCH (12:35)
--- NOTE | 2021-02-01 19:02 | P.PN ---
Subjective Progress Note Date: 02/01/21 Principal diagnosis: Hematemesis, alcohol abuse Patient is seen in bed reporting some abdominal discomfort. She has not had a bowel movement since presentation. No signs or symptoms of GI bleeding. Objective - Vital Signs Vital signs: Vital Signs Temp 97.9 F 02/01/21 07:12 Pulse 73 02/01/21 08:00 Resp 18 02/01/21 08:00 BP 147/91 02/01/21 07:12 Pulse Ox 98 02/01/21 07:12 Intake & Output 01/31/21 02/01/21 02/01/21 18:59 06:59 18:59 Intake Total 520 Balance 520 Intake: IV 520 Sodium Chloride 0.9% 1, 520 000 ml @ 130 mls/hr IV . Q7H42M [facility] Rx#:[id number] Other: Voiding Method Diaper Diaper Diaper # Voids 1 6 - Exam On physical examination, patient appears comfortable in no apparent distress. HEAD: Normocephalic, atraumatic. EYES: No scleral icterus. No conjunctival injection. MOUTH: No lesions, tongue midline. NECK: Trachea midline, no gross abnormalities. ABDOMEN: Soft, nontender to palpation. Bowel sounds are positive. No organomegaly. No guarding or rigidity. EXTREMITIES: No pedal edema. SKIN: No rashes, no jaundice. NEUROLOGIC: Alert and oriented x3. Tremulousness but no asterixis noted. - Labs CBC & Chem 7: 01/31/21 05:11 02/01/21 05:35 Labs: Abnormal Lab Results - Last 24 Hours (Table) 02/01/21 Range/Units 05:35 Sodium 132 L (137-145) mmol/L Potassium 3.4 L (3.5-5.1) mmol/L BUN 3 L (7-17) mg/dL Creatinine 0.36 L (0.52-1.04) mg/dL Glucose 102 H (74-99) mg/dL Calcium 8.3 L (8.4-10.2) mg/dL Assessment and Plan (1) Hematemesis Narrative/Plan: 60-year-old female who presented to the emergency department with complaints of abdominal pain nausea, and vomiting. She came in with alcohol intoxication with a significant history of alcohol abuse admitting to [facility] to 2 pints daily for at least the last 10 years. She states she has no previous history of upper GI bleed, peptic ulcer disease or GERD. She had multiple episodes of vomiting yesterday for which she states she had one episode with streaks of blood but no gross hematuria. She's had no further nausea or vomiting today, abdominal pain has improved. She has a history of colon polyps and underwent a colon screening in 2019 significant for colon polyps with polypectomy. She is never underwent an upper endoscopy. She states she has no history of esophageal varices or known liver disease. Hemoglobin has been stable. Likely we are dealing with a Anuradha-Ramesh tear due to all the retching and vomiting, however have to also consider other etiologies such as gastritis, esophagitis, esophageal varices, peptic ulcer disease or other etiology. No further signs or symptoms of GI bleeding and hemoglobin has remained stable. No nausea or vomiting but patient is reporting poor oral intake. Current Visit: Yes Status: Acute Code(s): K92.0 - HEMATEMESIS SNOMED Code(s): 1352684 (2) Abdominal pain Current Visit: Yes Status: Acute Code(s): R10.9 - UNSPECIFIED ABDOMINAL PAIN SNOMED Code(s): 48286253 (3) Alcohol intoxication Current Visit: Yes Status: Acute Code(s): F10.929 - ALCOHOL USE, UNSPECIFIED WITH INTOXICATION, UNSPECIFIED SNOMED Code(s): 18529390 (4) Alcohol withdrawal Current Visit: No Status: Acute Code(s): F10.239 - ALCOHOL DEPENDENCE WITH WITHDRAWAL, UNSPECIFIED SNOMED Code(s): 949367121 Plan: Continue symptomatic and supportive care Continue CIWA protocol Repeat CBC in the morning Protonix 40 mg IV twice a day Alcohol cessation milk of magnesia ordered for constipation Colace daily order for bowel regimen No plans for endoscopic evaluation at this time, no further signs or symptoms of GI bleeding, we'll reevaluate if any further bleeding or precipitous fall in hemoglobin Thank you for this consultation, we will continue to follow
[2021-02-01] MEDS: DOCUSATE 100 MG CAP PO SCH (20:33)
[2021-02-01] MEDS: ENOXAPARIN 40 MG/0.4 ML SYRINGE SQ SCH (20:35)
--- NOTE | 2021-02-01 22:50 | P.PN ---
Progress Note - Text Progress Note Date: 02/01/21 Chief Complaint: Abdominal pain History of presenting complaint: This is a 60-year-old patient . admitted here on 2019. admitted following a fall for alcohol intoxication. found to have a spinal cord concussion and transferred out to [facility]. Patient did undergo surgery at [facility] was then in rehab. Did well subsequently. Patient subsequently has gone back on taking alcohol. Lives at admissions for alcohol withdrawal. Patient now presents with 3 days of nausea vomiting increasing abdominal pain. Also had some blood in the vomitus. Does not remember when was the last time she had a bowel movement. No fever no chills. Poor appetite. Shaky trembling finding it difficult to walk because of the same. Patient's also drinks alcohol. Admitted with upper GI bleed. [place] to be gastritis/l ulcer from alcoholism. Al cohol withdrawal syndrome. Patient placed on CIWA scale, Valium, beta radha. PPI added. We GI conservative approach.patient became significantly hyponatremic from excessive water intake. Not eating solids. He was placed on a fluid restriction. Today: sodium is coming up.oral intake slowly improving. Has not been out of bed. Feels very weak. Review of systems: Was done for constitutional, cardiovascular, GI, pulmonary. relevant finding as above Active Medications Acetaminophen (Acetaminophen Tab 325 Mg Tab) 650 mg PO Q6HR PRN PRN Reason: Fever and/ or Pain Calcium Carbonate/Glycine (Calcium Carbonate Liquid 500 Mg/5 Ml Cup) 500 mg PO TID-W/MEALS [facility] Last Admin: 02/01/21 16:55 Dose: Not Given Documented by: Clonidine (Clonidine Hcl 0.1 Mg Tab) 0.1 mg PO BID [facility] Last Admin: 02/01/21 20:32 Dose: 0.1 mg Documented by: Diazepam (Diazepam 2 Mg Tab) 1 mg PO TID [facility] Stop: 02/01/21 23:59 Last Admin: 02/01/21 20:34 Dose: 1 mg Documented by: Docusate Sodium (Docusate 100 Mg Cap) 100 mg PO BID [facility] Last Admin: 02/01/21 20:33 Dose: 100 mg Documented by: Enoxaparin Sodium (Enoxaparin 40 Mg/0.4 Ml Syringe) 40 mg SQ DAILY@2100 [facility] Last Admin: 02/01/21 20:35 Dose: 40 mg Documented by: Sodium Chloride (Saline 0.9%) 1,000 mls @ 130 mls/hr IV .Q7H42M [facility] Last Admin: 02/01/21 15:06 Dose: 75 mls/hr Documented by: Lorazepam (Lorazepam 2 Mg/Ml Inj) 2 mg IV Q2HR PRN PRN Reason: Anxiety Last Admin: 01/30/21 16:25 Dose: 2 mg Documented by: Lorazepam (Lorazepam 2 Mg/Ml Inj) 1 mg IV Q4HR PRN PRN Reason: Anxiety Last Admin: 01/31/21 00:52 Dose: 1 mg Documented by: Magnesium Hydroxide (Magnesium Hydroxide 2,400 Mg/10 Ml Cup) 2,400 mg PO ONCE PRN PRN Reason: Constipation Last Admin: 02/01/21 12:38 Dose: 2,400 mg Documented by: Magnesium Oxide (Magnesium Oxide 400 Mg Tab) 400 mg PO BID [facility] Last Admin: 02/01/21 20:33 Dose: 400 mg Documented by: Melatonin (Melatonin 5 Mg Tablet) 5 mg PO HS PRN PRN Reason: insomnia Last Admin: 02/01/21 00:35 Dose: 5 mg Documented by: Metoprolol Tartrate (Metoprolol Tartrate 12.5 Mg Tab) 12.5 mg PO TID [facility] Last Admin: 02/01/21 22:27 Dose: 12.5 mg Documented by: Miscellaneous Information (Magnesium Replacement Protocol 1 Each Misc) 1 each MISCELLANE DAILY PRN; Protocol PRN Reason: Per Protocol Multivitamins (Multivitamins, Thera 1 Each Tab) 1 each PO DAILY [facility] Last Admin: 02/01/21 08:32 Dose: 1 each Documented by: Naloxone HCl (Naloxone 0.4 Mg/Ml 1 Ml Vial) 0.2 mg IV Q2M PRN PRN Reason: Opioid Reversal Nicotine (Nicotine 7mg/24hr Patch) 1 patch TRANSDERM DAILY [facility] Last Admin: 02/01/21 08:18 Dose: Not Given Documented by: Ondansetron HCl (Ondansetron 4 Mg/2 Ml Vial) 4 mg IVP Q8HR PRN PRN Reason: Nausea And Vomiting Last Admin: 01/29/21 23:08 Dose: 4 mg Documented by: Pantoprazole Sodium (Pantoprazole 40 Mg Tablet) 40 mg PO BID [facility] Last Admin: 05/23/21 20:33 Dose: 40 mg Documented by: Potassium Chloride (Potassium Chloride Er 20 Meq Tab.Er) 20 meq PO DAILY [facility] Last Admin: 02/01/21 12:35 Dose: 20 meq Documented by: Thiamine HCl (Thiamine 100 Mg Tab) 100 mg PO DAILY [facility] Last Admin: 02/01/21 08:32 Dose: 100 mg Documented by: Past medical history to include: Spinal cord concussion secondary to fall, chronic alcohol syndrome, chronic nicotine dependence, Social history: Lives with her ,'s drinks at least a pint of whiskey a day, smoking half a pack a day since 1997 Physical examination: VITAL SIGNS: 97.9, 71, 18, 144/88, 99% room air GENERAL: Laying in bed, awake EYES: Pupils equal. Conjunctiva normal. NECK: JVD not raised; masses not palpable. HEART: First and second heart sounds are normal; no edema. LUNGS:[ Respiratory rate increased; decreased breath sounds, mild wheezing. ABDOMEN: Soft, minimal distended, decreased left-sided tenderness, no guarding rigidity liver spleen not palpable, no masses palpable. PSYCH: Alert and oriented x3; mood and affect anxious. NEUROLOGICAL: Cranial nerves grossly intact; no facial asymmetry, power and sensation grossly intact. tremors greatly improved INVESTIGATIONS, reviewed in the clinical context: February 01: Sodium 132 potassium 3.4 creatinine 0.36 January 31: WBC 4.8 hemoglobin 12.2 platelets 54 sodium 125 potassium 3.1 creatinine 0.3 to glucose 117 January 30: WBC 6 hemoglobin 13.4 potassium 4.7 creatinine 0.36 WBC 12.7 hemoglobin 15.6 platelets 105 potassium 4 creatinine 0.6 Lactic acid 4.1 AST 162 ALT 82 Serum alcohol 289 Coronavirus [PCR]-not detected EKG tracing personally reviewed by me-normal sinus rhythm, rate of 102 Computed tomography scan of the abdomen: Hepatic steatosis Assessment and plan: -Patient presents with 3 days of nausea vomiting some blood in the vomitus. Most likely severe gastritis, peptic ulcer disease possible, secondary to alcoholism Clear liquids. PPI. Tums. Seen by GI. Not for any endoscopic currently. tolerated full liquids. Advance to soft bland. -Moderate hyponatremia from excessive water intake. Patient not eating any food.-improving Change fluids to normal saline. Free fluid restriction. 1200 mL a day. sodium improving -Acute alcohol intoxication, POA Watch for withdrawals. - alcohol withdrawal syndrome, POA CIWA scale. Lopressor 12.5 mg 3 times a day to cut back sympathetic drive. Decrease Valium to 1 mg 3 times a day. -Alcohol use disorder We will have further discussion with the patient about the same and more sober -Chronic nicotine dependence, patient's cigarette smoker Nicotine patch -Alcoholic hepatitis Follow LFTs -Chronic left shoulder pain Pain controlled -Alcoholic myopathy, causing gait dysfunction Fall precautions. PT OT -Metabolic acidosis-corrected Sodium bicarbonate added to IV fluids. Discontinue bicarbonate -Type II lactic acidosis Hydrate patient -Thrombocytopenia from alcoholism Follow platelets -Significant nausea is a combination of gastritis and from Dilaudid. DC Dilaudid. ww will DC fluids and Valium tonight.correctional casework specialist to look into discharge planning based on PT OT. Care discussed with the patient.
[2021-02-01 23:25] VITALS: RESP 16
[2021-02-02] MEDS: MELATONIN 5 MG TABLET PO PRN (00:06)
[2021-02-02 07:21] VITALS: BP 136/90; PULSE 66; TEMP 97.9
[2021-02-02] MEDS: NICOTINE 7MG/24HR PATCH TRANSDERM SCH (08:08)
[2021-02-02] MEDS: DOCUSATE 100 MG CAP PO SCH (08:08)
[2021-02-02] MEDS: CALCIUM CARBONATE LIQUID 500 MG/5 ML CUP PO SCH (08:08)
[2021-02-02] MEDS: MAGNESIUM OXIDE 400 MG TAB PO SCH (08:17)
[2021-02-02] MEDS: THIAMINE 100 MG TAB PO SCH (08:17)
[2021-02-02] MEDS: PANTOPRAZOLE 40 MG TABLET PO SCH (08:17)
[2021-02-02] MEDS: METOPROLOL TARTRATE 12.5 MG TAB PO SCH (08:17)
[2021-02-02] MEDS: MULTIVITAMINS, THERA 1 EACH TAB PO SCH (08:18)
[2021-02-02] MEDS: POTASSIUM CHLORIDE ER 20 MEQ TAB.ER PO SCH (08:18)
[2021-02-02] MEDS: cloNIDine HCL 0.1 MG TAB PO SCH (08:18)
[2021-02-02 12:13] LABS: African American GFR (CKD) >90 (>60 ml/min/1.73 sqM); Anion Gap 2 mmol/L; Blood Urea Nitrogen 2 mg/dL (7-17); Calcium 8.4 mg/dL (8.4-10.2); Carbon Dioxide 28 mmol/L (22-30); Chloride 101 mmol/L (98-107); Glucose 106 mg/dL (74-99); Non-African American GFR(CKD) >90 (>60 ml/min/1.73 sqM); Potassium 3.2 mmol/L (3.5-5.1); Sodium 131 mmol/L (137-145)
--- NOTE | 2021-02-02 20:04 | P.DS ---
Providers Date of admission: 01/29/21 13:47 Expected date of discharge: 02/02/21 Attending physician: Oswaldo Rush Consults: 01/29/21 13:53 Consult Physician Urgent Consulting Provider: Aaron Nielsen Reason/Comments: Hematemesis Do you want consulting provider notified?: Yes Primary care physician: [facility] Course: Chief Complaint: Abdominal pain History of presenting complaint: This is a 60-year-old patient . admitted here on 2019. admitted following a fall for alcohol intoxication. found to have a spinal cord concussion and transferred out to [facility]. Patient did undergo surgery at [facility] was then in rehab. Did well subsequently. Patient subsequently has gone back on taking alcohol. Lives at admissions for alcohol withdrawal. Patient now presents with 3 days of nausea vomiting increasing abdominal pain. Also had some blood in the vomitus. Does not remember when was the last time she had a bowel movement. No fever no chills. Poor appetite. Shaky trembling finding it difficult to walk because of the same. Patient's also drinks alcohol. Admitted with upper GI bleed. [place] to be gastritis/l ulcer from alcoholism. Alcohol withdrawal syndrome. Patient placed on CIWA scale, Valium, beta radha. PPI added. We GI conservative approach.patient became significantly hyponatremic from excessive water intake. Not eating solids. placed on a fluid restriction. Sodium did come up. Today: Oral intake better. Did smoke with physical therapy today. Walked well. With a walker. Care was discussed with the patient. Counseled about alcohol again today. Patient declined Antabuse. Seen by family service caseworker for discharge planning needs. Discussion and discharge planning more than 35 minutes Consultation: Dr. Mendiola from GI Past medical history to include: Spinal cord concussion secondary to fall, chronic alcohol syndrome, chronic nicotine dependence, Social history: Lives with her ,'s drinks at least a pint of whiskey a day, smoking half a pack a day since 1997 Physical examination: VITAL SIGNS: 97.9, 66, 16, 136/90, 100% room air GENERAL: Laying in bed, comfortable EYES: Pupils equal. Conjunctiva normal. NECK: JVD not raised; masses not palpable. HEART: First and second heart sounds are normal; no edema. LUNGS:[ Respiratory rate increased; decreased breath sounds, mild wheezing. ABDOMEN: Soft, minimal distended, no tenderness, no guarding rigidity liver spleen not palpable, no masses palpable. PSYCH: Alert and oriented x3; mood and affect anxious. NEUROLOGICAL: Cranial nerves grossly intact; no facial asymmetry, power and sensation grossly intact. tremors resolved INVESTIGATIONS, reviewed in the clinical context: February 02: Potassium 3.2 creatinine 0.39 February 01: Sodium 132 potassium 3.4 creatinine 0.36 January 31: WBC 4.8 hemoglobin 12.2 platelets 54 sodium 125 potassium 3.1 creatinine 0.3 to glucose 117 January 30: WBC 6 hemoglobin 13.4 potassium 4.7 creatinine 0.36 WBC 12.7 hemoglobin 15.6 platelets 105 potassium 4 creatinine 0.6 Lactic acid 4.1 AST 162 ALT 82 Serum alcohol 289 Coronavirus [PCR]-not detected EKG tracing personally reviewed by me-normal sinus rhythm, rate of 102 Computed tomography scan of the abdomen: Hepatic steatosis Assessment and plan: -Patient presents with 3 days of nausea vomiting some blood in the vomitus. Most likely severe gastritis,, secondary to alcoholism Given H2 radha. Diet advanced. Tolerating diet. -Moderate hyponatremia from excessive water intake. Improved Diet discussed -Acute alcohol intoxication, POA Improved- alcohol withdrawal syndrome, POA CIWA scale. Lopressor 12.5 mg 3 times a day to cut back sympathetic drive. Decrease Valium to 1 mg 3 times a day. Valium discontinued.. -Alcohol use disorder Counseled about the same -Chronic nicotine dependence, patient's cigarette smoker Nicotine patch -Alcoholic hepatitis Follow LFTs -Chronic left shoulder pain Pain controlled -Alcoholic myopathy, causing gait dysfunction Fall precautions. PT OT. Did well with walker. -Metabolic acidosis-corrected Sodium bicarbonate added to IV fluids. Discontinue bicarbonate -Type II lactic acidosis Hydrate patient -Thrombocytopenia from alcoholism Follow platelets -Significant nausea is a combination of gastritis and from Dilaudid. DC Dilaudid. Disposition: Home Plan - Discharge Summary Discharge Rx Participant: No New Discharge Prescriptions: New Pantoprazole [Protonix] 40 mg PO BID #60 tablet. Thiamine [Vitamin B-1] 100 mg PO DAILY #30 tab Nicotine 7Mg/24Hr Patch [Habitrol] 1 patch TRANSDERM DAILY #14 patch Metoprolol Tartrate [Lopressor] 25 mg PO BID #60 tablet Continue Vitamin B Complex 1 cap PO DAILY Multivitamins, Thera [Multivitamin (formulary)] 1 tab PO DAILY [id number] [phone] [Excedrin] 1 - 2 tab PO Q4HR PRN PRN Reason: Pain Fexofenadine/Pseudoephedrine [Katarzyna-D 24 Hour Tablet] 1 tab PO DAILY Calcium/Magnesium/Zinc [Jmgvkhg-Xddbtjwsq-Abpn Tablet] 1 tab PO DAILY Discharge Medication List [id number]-[id number] [phone] [Excedrin] 1 - 2 tab PO Q4HR PRN 05/01/20 [History] Fexofenadine/Pseudoephedrine [Katarzyna-D 24 Hour Tablet] 1 tab PO DAILY 05/01/20 [History] Multivitamins, Thera [Multivitamin (formulary)] 1 tab PO DAILY 05/01/20 [History] Vitamin B Complex 1 cap PO DAILY 05/01/20 [History] Calcium/Magnesium/Zinc [Fcpfzjc-Lohufivvq-Nmqe Tablet] 1 tab PO DAILY 07/23/20 [History] Metoprolol Tartrate [Lopressor] 25 mg PO BID #60 tablet 02/02/21 [Rx] Nicotine 7Mg/24Hr Patch [Habitrol] 1 patch TRANSDERM DAILY #14 patch 02/02/21 [Rx] Pantoprazole [Protonix] 40 mg PO BID #60 tablet.dr 02/02/21 [Rx] Thiamine [Vitamin B-1] 100 mg PO DAILY #30 tab 02/02/21 [Rx] Follow up Appointment(s)/Referral(s): Danny Ogden DO [Primary Care Provider] - 1-2 days Cornell Zhneg MD [STAFF PHYSICIAN] - 1 Week Patient Instructions/Handouts: Alcohol Intoxication (DC), Abuse of Alcohol (DC)
== END 2021-02-02 11:10 | disposition home or self-care (01) | DRG 378 ==
LOC: EC 09:14 → 4SSUR 13:47 → 6NMEDSUR 21:35
PROVIDERS: ADMIT Hospitalist; ATTEND Hospitalist
DX: K29.21 Alcoholic gastritis with bleeding (principal); F10.239 Alcohol dependence with withdrawal, unspecified; G72.1 Alcoholic myopathy; I47.2 Ventricular tachycardia; E87.2 Acidosis; E87.1 Hypo-osmolality and hyponatremia; K70.9 Alcoholic liver disease, unspecified; F10.229 Alcohol dependence with intoxication, unspecified; Z20.822 Contact with and (suspected) exposure to COVID-19; K70.10 Alcoholic hepatitis without ascites; K76.0 Fatty (change of) liver, not elsewhere classified; Y90.8 Blood alcohol level of 240 mg/100 ml or more; F41.9 Anxiety disorder, unspecified; D69.59 Other secondary thrombocytopenia; I10 Essential (primary) hypertension; E83.42 Hypomagnesemia; E86.0 Dehydration; F32.9 Major depressive disorder, single episode, unspecified; G89.29 Other chronic pain; M25.512 Pain in left shoulder; M54.5 Low back pain; M19.90 Unspecified osteoarthritis, unspecified site; R11.2 Nausea with vomiting, unspecified; T40.2X5A Adverse effect of other opioids, initial encounter; F17.210 Nicotine dependence, cigarettes, uncomplicated; R26.9 Unspecified abnormalities of gait and mobility; Z71.41 Alcohol abuse counseling and surveillance of alcoholic; Z79.82 Long term (current) use of aspirin; Z79.899 Other long term (current) drug therapy; Z91.81 History of falling; Z87.440 Personal history of urinary (tract) infections; Z86.010 Personal history of colon polyps; Z87.39 Personal history of other diseases of the musculoskeletal system and connective tissue; Z86.69 Personal history of other diseases of the nervous system and sense organs; Z98.890 Other specified postprocedural states; Z88.2 Allergy status to sulfonamides; Z88.8 Allergy status to other drugs, medicaments and biological substances; Z91.041 Radiographic dye allergy status; Z91.013 Allergy to seafood; Z80.8 Family history of malignant neoplasm of other organs or systems
CPT/HCPCS: 36415; 74177; 80048; 80053; 80320; 81001; 82150; 83605; 83690; 83735; 85025; 85027; 85610; 85730; 87635; 93005; 96361; 96374; 96375; 99285

== ENCOUNTER 2021-05-08 23:21 | Emergency (ER) | payer BC, OTHER ==
[2021-05-08 23:29] VITALS: RESP 18; TEMP 98.2
--- NOTE | 2021-05-08 23:37 | ED ---
Fall HPI - General Chief Complaint: Fall Stated Complaint: ETOH Time Seen by Provider: 05/08/21 23:30 Source: patient, EMS Mode of arrival: EMS - History of Present Illness MD Complaint: fall Onset/Timin -: days(s) Fall From: standing When Fall Occurred: # days [employer] (2) Fall Witnessed: no Place Fall Occurred: home Loss of Consciousness: none Prolonged Down Time?: no Symptoms Prior to Fall: none Severity: moderate Context: tripped/slipped, alcohol use, history of frequent falls Associated Symptoms: neck pain - Related Data Home Medications Medication Instructions Recorded Confirmed [id number] [id number] 1 - 2 tab PO Q4HR PRN 05/01/20 01/29/21 [Excedrin] Fexofenadine/Pseudoephedrine 1 tab PO DAILY 05/01/20 01/29/21 [Katarzyna-D 24 Hour Tablet] Multivitamins, Thera [Multivitamin 1 tab PO DAILY 05/01/20 01/29/21 (formulary)] Vitamin B Complex 1 cap PO DAILY 05/01/20 01/29/21 Calcium/Magnesium/Zinc 1 tab PO DAILY 07/23/20 01/29/21 [Kwooxti-Qbekikovb-Btfe Tablet] Previous Rx's Medication Instructions Recorded Metoprolol Tartrate [Lopressor] 25 mg PO BID #60 tablet 02/02/21 Nicotine 7Mg/24Hr Patch [Habitrol] 1 patch TRANSDERM DAILY #14 patch 02/02/21 Pantoprazole [Protonix] 40 mg PO BID #60 tablet. 02/02/21 Thiamine [Vitamin B-1] 100 mg PO DAILY #30 tab 02/02/21 Methocarbamol [Robaxin-750] 750 mg PO TID PRN #30 tablet 05/09/21 Allergies Allergy/AdvReac Type Severity Reaction Status Date / Time shellfish derived [Shellfish] Allergy Severe Dyspnea Verified 01/29/21 10:22 iodine Allergy Rash/Hives Verified 01/29/21 10:22 Sulfa (Sulfonamide Allergy Rash/Hives Verified 01/29/21 10:22 Antibiotics) Review of Systems ROS Statement: Those systems with pertinent positive or pertinent negative responses have been documented in the HPI. ROS Other: All systems not noted in ROS Statement are negative. Constitutional: Denies: fever, chills, weakness Eyes: Denies: eye pain, vision change ENT: Denies: ear pain, hearing loss Respiratory: Denies: dyspnea Cardiovascular: Denies: chest pain, syncope Gastrointestinal: Denies: abdominal pain, vomiting, diarrhea Musculoskeletal: Reports: as per HPI. 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 History of Any Multi-Drug Resistant Organisms: None Reported Past Surgical History: Back Surgery Additional Past Surgical History / Comment(s): Cervical surgery at [facility] d/t injury, colonoscopies/benign polypectomy Past Anesthesia/Blood Transfusion Reactions: No Reported Reaction, Motion Sickness Additional Past Anesthesia/Blood Transfusion Reaction / Comment(s): PT has clausterphobia. Past Psychological History: Anxiety, Depression Smoking Status: Current every day smoker Past Alcohol Use History: Abuse, Daily, Occasional Past Drug Use History: None Reported - Past Family History Mother Family Medical History: Cancer Additional Family Medical History / Comment(s): Mother of melanoma Father Family Medical History: No Reported History Additional Family Medical History / Comment(s): Father is healthy General Exam Limitations: no limitations General appearance: alert, in no apparent distress Head exam: Present: atraumatic, normocephalic Eye exam: Present: normal appearance. Absent: scleral icterus, conjunctival injection Neck exam: Present: normal inspection, tenderness, other (Cervical collar) Respiratory exam: Present: normal lung sounds bilaterally. Absent: respiratory distress, wheezes, rales, rhonchi, stridor Cardiovascular Exam: Present: normal rhythm, tachycardia, normal heart sounds. Absent: systolic murmur, diastolic murmur, rubs, gallop GI/Abdominal exam: Present: soft. Absent: tenderness Extremities exam: Present: normal inspection, normal capillary refill. Absent: pedal edema, calf tenderness Back exam: Present: normal inspection. Absent: CVA tenderness (R), CVA tenderness (L) Neurological exam: Present: alert Skin exam: Present: warm, dry, intact, normal color. Absent: rash Course Vital Signs 05/08/21 23:26 Temperature 98.2 F Pulse Rate 125 H Respiratory 18 Rate Blood Pressure 131/98 O2 Sat by Pulse 95 Oximetry Disposition Clinical Impression: Neck pain Disposition: HOME SELF-CARE Condition: Good Instructions (If sedation given, give patient instructions): Neck Pain (ED) Prescriptions: Methocarbamol [Robaxin-750] 750 mg PO TID PRN #30 tablet PRN Reason: pain Is patient prescribed a controlled substance at d/c from ED?: No Referrals: None,Stated [Primary Care Provider] - 1-2 days
--- NOTE | 2021-05-08 23:53 | CT ---
EXAMINATION TYPE: CT brain shylaine wo con DATE OF EXAM: 05/08/2021 COMPARISON: 09/28/2019 HISTORY: fall CT DLP: 1326.8 mGycm Automated exposure control for dose reduction was used. Ventricles have normal size. There is no mass effect nor midline shift. There is no sign of intracran ial hemorrhage. The calvarium is intact. There is possible soft tissue swelling over the left frontal bone. Skull base is intact. There is normal aeration of the mastoid sinuses. There is fluid levels i n the maxillary sinuses. There is mucosal thickening in the ethmoid and sphenoid and frontal sinuses. The cervical vertebra have normal alignment. There is anterior fusion surgery at C3-4. Facet joints a re intact. There is no compression fracture. There is anterior spurring in the lower cervical spine. IMPRESSION: Minimal cerebral atrophy. No acute intracranial abnormality. Spondylotic changes in the cervical spine with previous surgery. No fracture. There is pansinusitis which is mostly new compared to old exam.
[2021-05-09] MEDS ORDERED: IBUPROFEN 600 MG TAB PO STA (00:02)
[2021-05-09] MEDS ORDERED: ONDANSETRON ODT 4 MG TAB PO STA (00:21)
[2021-05-09] MEDS ORDERED: PROCHLORPERAZINE INJ 10 MG/2 ML VIAL IM STA (01:05)
[2021-05-09 01:21] VITALS: BP 145/83; PULSE 103
== END 2021-05-09 03:38 | disposition home or self-care (01) ==
LOC: EC 23:21
DX: M54.2 Cervicalgia (principal); I10 Essential (primary) hypertension; M19.90 Unspecified osteoarthritis, unspecified site; F41.9 Anxiety disorder, unspecified; F32.9 Major depressive disorder, single episode, unspecified; F17.200 Nicotine dependence, unspecified, uncomplicated; Z79.82 Long term (current) use of aspirin; Z88.2 Allergy status to sulfonamides; Z91.041 Radiographic dye allergy status; Z91.013 Allergy to seafood; Z87.440 Personal history of urinary (tract) infections
CPT/HCPCS: 99284; 96372; 72125; 70450; J0780

== ENCOUNTER 2021-07-08 08:00 | Emergency (ER) | payer BC, OTHER ==
[2021-07-08] MEDS ORDERED: SODIUM CHLORIDE 0.9% 1,000 ML IV STA (08:27)
[2021-07-08] MEDS ORDERED: LORazepam 2 MG/ML INJ IV STA ×2 (08:27→12:06)
[2021-07-08] MEDS ORDERED: ONDANSETRON 4 MG/2 ML VIAL IVP STA (08:28)
--- NOTE | 2021-07-08 08:35 | ED ---
Abdominal Pain HPI - General Chief Complaint: Abdominal Pain Stated Complaint: Abdominal pain Source: patient Mode of arrival: EMS Limitations: no limitations - History of Present Illness Initial Comments: 61-year-old female past history of daily alcohol abuse presents emergency room with reported suprapubic abdominal pain, urinary incontinence and frequency. States that she's had symptoms for approximately 5 days her symptoms have gotten worse. States that she hasn't been sleeping much. Has a poor appetite with nausea. States she has not been able to hold down any food or drink. She denies any fevers or chills. No chest pain or shortness of breath. Denies any abnormal vaginal bleeding or discharge. No changes in her bowel habits to include diarrhea, constipation, melenic stools or hematochezia. Patient denies hematemesis. No other alleviating, precipitating or modifying factors - Related Data Home Medications Medication Instructions Recorded Confirmed [id number]-Rgyw [id number] 1 - 2 tab PO Q4HR PRN 05/01/20 07/08/21 [Excedrin] Fexofenadine/Pseudoephedrine 1 tab PO Q12H PRN 07/08/21 07/08/21 [Katarzyna-D 12 Hour Tablet] Previous Rx's Medication Instructions Recorded Cephalexin [Keflex] 500 mg PO BID 1 Days #14 cap 07/08/21 Allergies Allergy/AdvReac Type Severity Reaction Status Date / Time shellfish derived [Shellfish] Allergy Severe Dyspnea Verified 07/08/21 11:01 iodine Allergy Rash/Hives Verified 07/08/21 11:01 Sulfa (Sulfonamide Allergy Rash/Hives Verified 07/08/21 11:01 Antibiotics) Review of Systems ROS Statement: Those systems with pertinent positive or pertinent negative responses have been documented in the HPI. ROS Other: All systems not noted in ROS Statement are negative. 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 History of Any Multi-Drug Resistant Organisms: None Reported Past Surgical History: Back Surgery Additional Past Surgical History / Comment(s): Cervical surgery at [facility] d/t injury, colonoscopies/benign polypectomy Past Anesthesia/Blood Transfusion Reactions: No Reported Reaction, Motion Sickness Additional Past Anesthesia/Blood Transfusion Reaction / Comment(s): PT has clausterphobia. Past Psychological History: Anxiety, Depression Smoking Status: Current every day smoker Past Alcohol Use History: Abuse, Daily, Occasional Past Drug Use History: None Reported - Past Family History Mother Family Medical History: Cancer Additional Family Medical History / Comment(s): Mother of melanoma Father Family Medical History: No Reported History Additional Family Medical History / Comment(s): Father is healthy General Exam Limitations: no limitations Course Vital Signs 07/08/21 07/08/21 07/08/21 08:06 09:17 12:14 Temperature 98.2 F 98.7 F Pulse Rate 98 80 88 Respiratory 16 18 16 Rate Blood Pressure 146/98 121/64 138/92 O2 Sat by Pulse 96 97 95 Oximetry Medical Decision Making - Medical Decision Making Upon arrival patient was placed into room 6. A thorough history and physical exam is performed. IV is established and the patient is given a liter bolus of normal saline, 4 mg of Zofran. Laboratory studies are conducted. Patient went over for a CT of her abdomen and pelvis after she received Pepcid, Medrol and Benadryl. Laboratory studies demonstrate a lactic acid of 3.8. 5.9 potassium which is hemolyzed. Urinalysis demonstrates large leukocyte esterase, 15 red b lood cells, greater than 182 white blood cells, few white blood cell clumps and rare bacteria. Alcohol is 299. CT of the patient's abdomen and pelvis Straits hepatic states ptosis with urinary bladder cystitis. Patient is given a dose of Rocephin in the emergency department. Recommended the patient significantly cut down her drinking. Repeat lactic acid is performed and is improved to 2.4. The patient will be discharged home at this time as her father is able to come pick her up. She'll be started on Keflex in the outpatient setting. Needs to follow up with primary care doctor for repeat urinalysis and referral to GI. Do feel the patient needs an EGD due to her history of daily heavy alcohol abuse and abdominal pain. Patient needs to return to the emergency room for any new or worsening symptoms. She agreed to the treatment plan and was discharged home in stable condition - Lab Data Result diagrams: 07/08/21 08:36 07/08/21 08:36 Lab Results 07/08/21 07/08/21 07/08/21 Range/Units 08:36 08:36 08:36 WBC 9.9 (3.8-10.6) k/uL RBC 4.45 (3.80-5.40) m/uL Hgb 14.8 (11.4-16.0) gm/dL Hct 44.2 (34.0-46.0) % MCV 99.1 (80.0-100.0) fL MCH 33.1 (25.0-35.0) pg MCHC 33.4 (31.0-37.0) g/dL RDW 12.8 (11.5-15.5) % Plt Count 169 (150-450) k/uL MPV 7.6 Neutrophils % 68 % Lymphocytes % 25 % Monocytes % 3 % Eosinophils % 2 % Basophils % 0 % Neutrophils # 6.8 (1.3-7.7) k/uL Lymphocytes # 2.5 (1.0-4.8) k/uL Monocytes # 0.3 (0-1.0) k/uL Eosinophils # 0.2 (0-0.7) k/uL Basophils # 0.0 (0-0.2) k/uL Sodium 137 (137-145) mmol/L Potassium 5.9 H (3.5-5.1) mmol/L Chloride 100 (98-107) mmol/L Carbon Dioxide 18 L (22-30) mmol/L Anion Gap 19 mmol/L BUN 4 L (7-17) mg/dL Creatinine 0.42 L (0.52-1.04) mg/dL Est GFR (CKD-EPI)AfAm >90 (>60 ml/min/1.73 sqM) Est GFR (CKD-EPI)NonAf >90 (>60 ml/min/1.73 sqM) Glucose 105 H (74-99) mg/dL Lactic Ac Sepsis Rflx Plasma Lactic Acid Samuel (0.7-2.0) mmol/L Calcium 9.0 (8.4-10.2) mg/dL Total Bilirubin 1.0 (0.2-1.3) mg/dL AST 60 H (14-36) U/L ALT 27 (4-34) U/L Alkaline Phosphatase 78 (38-126) U/L Total Protein 8.2 (6.3-8.2) g/dL Albumin 4.8 (3.5-5.0) g/dL Lipase 79 (23-300) U/L Urine Color Light Yellow Urine Appearance Cloudy H (Clear) Urine pH 6.5 (5.0-8.0) Ur Specific Girard 1.019 (1.001-1.035) Urine Protein 1+ H (Negative) Urine Glucose (UA) Negative (Negative) Urine Ketones Trace H (Negative) Urine Blood Small H (Negative) Urine Nitrite Negative (Negative) Urine Bilirubin Negative (Negative) Urine Urobilinogen <2.0 (<2.0) mg/dL Ur Leukocyte Esterase Large H (Negative) Urine RBC 15 H (0-5) /hpf Urine WBC >182 H (0-5) /hpf Urine WBC Clumps Few H (None) /hpf Ur Squamous Epith Cells 1 (0-4) /hpf Urine Bacteria Rare H (None) /hpf Urine Mucus Rare H (None) /hpf Serum Alcohol 299 H* mg/dL 07/08/21 07/08/21 07/08/21 Range/Units 08:36 09:12 11:43 WBC (3.8-10.6) k/uL RBC (3.80-5.40) m/uL Hgb (11.4-16.0) gm/dL Hct (34.0-46.0) % MCV (80.0-100.0) fL MCH (25.0-35.0) pg MCHC (31.0-37.0) g/dL RDW (11.5-15.5) % Plt Count (150-450) k/uL MPV Neutrophils % % Lymphocytes % % Monocytes % % Eosinophils % % Basophils % % Neutrophils # (1.3-7.7) k/uL Lymphocytes # (1.0-4.8) k/uL Monocytes # (0-1.0) k/uL Eosinophils # (0-0.7) k/uL Basophils # (0-0.2) k/uL Sodium (137-145) mmol/L Potassium (3.5-5.1) mmol/L Chloride (98-107) mmol/L Carbon Dioxide (22-30) mmol/L Anion Gap mmol/L BUN (7-17) mg/dL Creatinine (0.52-1.04) mg/dL Est GFR (CKD-EPI)AfAm (>60 ml/min/1.73 sqM) Est GFR (CKD-EPI)NonAf (>60 ml/min/1.73 sqM) Glucose (74-99) mg/dL Lactic Ac Sepsis Rflx Y Plasma Lactic Acid Samuel 3.8 H* 2.4 H* (0.7-2.0) mmol/L Calcium (8.4-10.2) mg/dL Total Bilirubin (0.2-1.3) mg/dL AST (14-36) U/L ALT (4-34) U/L Alkaline Phosphatase (38-126) U/L Total Protein (6.3-8.2) g/dL Albumin (3.5-5.0) g/dL Lipase (23-300) U/L Urine Color Urine Appearance (Clear) Urine pH (5.0-8.0) Ur Specific Girard (1.001-1.035) Urine Protein (Negative) Urine Glucose (UA) (Negative) Urine Ketones (Negative) Urine Blood (Negative) Urine Nitrite (Negative) Urine Bilirubin (Negative) Urine Urobilinogen (<2.0) mg/dL Ur Leukocyte Esterase (Negative) Urine RBC (0-5) /hpf Urine WBC (0-5) /hpf Urine WBC Clumps (None) /hpf Ur Squamous Epith Cells (0-4) /hpf Urine Bacteria (None) /hpf Urine Mucus (None) /hpf Serum Alcohol mg/dL 07/08/21 Range/Units 12:12 WBC (3.8-10.6) k/uL RBC (3.80-5.40) m/uL Hgb (11.4-16.0) gm/dL Hct (34.0-46.0) % MCV (80.0-100.0) fL MCH (25.0-35.0) pg MCHC (31.0-37.0) g/dL RDW (11.5-15.5) % Plt Count (150-450) k/uL MPV Neutrophils % % Lymphocytes % % Monocytes % % Eosinophils % % Basophils % % Neutrophils # (1.3-7.7) k/uL Lymphocytes # (1.0-4.8) k/uL Monocytes # (0-1.0) k/uL Eosinophils # (0-0.7) k/uL Basophils # (0-0.2) k/uL Sodium (137-145) mmol/L Potassium (3.5-5.1) mmol/L Chloride (98-107) mmol/L Carbon Dioxide (22-30) mmol/L Anion Gap mmol/L BUN (7-17) mg/dL Creatinine (0.52-1.04) mg/dL Est GFR (CKD-EPI)AfAm (>60 ml/min/1.73 sqM) Est GFR (CKD-EPI)NonAf (>60 ml/min/1.73 sqM) Glucose (74-99) mg/dL Lactic Ac Sepsis Rflx Y Plasma Lactic Acid Samuel (0.7-2.0) mmol/L Calcium (8.4-10.2) mg/dL Total Bilirubin (0.2-1.3) mg/dL AST (14-36) U/L ALT (4-34) U/L Alkaline Phosphatase (38-126) U/L Total Protein (6.3-8.2) g/dL Albumin (3.5-5.0) g/dL Lipase (23-300) U/L Urine Color Urine Appearance (Clear) Urine pH (5.0-8.0) Ur Specific Girard (1.001-1.035) Urine Protein (Negative) Urine Glucose (UA) (Negative) Urine Ketones (Negative) Urine Blood (Negative) Urine Nitrite (Negative) Urine Bilirubin (Negative) Urine Urobilinogen (<2.0) mg/dL Ur Leukocyte Esterase (Negative) Urine RBC (0-5) /hpf Urine WBC (0-5) /hpf Urine WBC Clumps (None) /hpf Ur Squamous Epith Cells (0-4) /hpf Urine Bacteria (None) /hpf Urine Mucus (None) /hpf Serum Alcohol mg/dL Disposition Clinical Impression: Alcohol intoxication, UTI (urinary tract infection) Disposition: HOME SELF-CARE Condition: Stable Instructions (If sedation given, give patient instructions): Urinary Tract Infection in Women (ED) Additional Instructions: Please follow-up with Dr. Ogden to ensure that your urine clears up. Ask to be referred to Dr. Samayoa for an EGD. Return to the ED for any new or worsening symptoms. Prescriptions: Cephalexin [Keflex] 500 mg PO BID 1 Days #14 cap Is patient prescribed a controlled substance at d/c from ED?: No Referrals: Danny Ogden DO [Primary Care Provider] - 1-2 days Ginger Samayoa MD [STAFF PHYSICIAN] - 1-2 days Time of Disposition: 12:09
[2021-07-08 08:46] LABS: Basophils % (A) 0 %; Eosinophils # (A) 0.2 k/uL (0-0.7); Eosinophils % (A) 2 %; HCT 44.2 % (34.0-46.0); HGB 14.8 gm/dL (11.4-16.0); Lymphocytes # (A) 2.5 k/uL (1.0-4.8); Lymphocytes % (A) 25 %; MCH 33.1 pg (25.0-35.0); MCHC 33.4 g/dL (31.0-37.0); MCV 99.1 fL (80.0-100.0); Mean Platelet Volume 7.6; Monocytes # (A) 0.3 k/uL (0-1.0); Monocytes % (A) 3 %; Neutrophils # (A) 6.8 k/uL (1.3-7.7); Neutrophils % (A) 68 %; Platelet Count 169 k/uL (150-450); RBC 4.45 m/uL (3.80-5.40); RDW 12.8 % (11.5-15.5); WBC 9.9 k/uL (3.8-10.6)
[2021-07-08] MEDS ORDERED: methylPREDNISolone SOD SUCCI 125 MG/2 ML VIAL IV STA (09:07)
[2021-07-08] MEDS ORDERED: diphenhydrAMINE 50 MG/ML 1 ML VIAL IVP STA (09:07)
[2021-07-08] MEDS ORDERED: FAMOTIDINE 20 MG/2 ML VIAL IV STA (09:08)
[2021-07-08 09:09] LABS: ALT 27 U/L (4-34); African American GFR (CKD) >90 (>60 ml/min/1.73 sqM); Anion Gap 19 mmol/L; Blood Urea Nitrogen 4 mg/dL (7-17); Carbon Dioxide 18 mmol/L (22-30); Chloride 100 mmol/L (98-107); Glucose 105 mg/dL (74-99); Lipase 79 U/L (23-300); Non-African American GFR(CKD) >90 (>60 ml/min/1.73 sqM); Sodium 137 mmol/L (137-145)
[2021-07-08 09:14] LABS: Alcohol 299 mg/dL
[2021-07-08 09:15] LABS: AST 60 U/L (14-36); Albumin 4.8 g/dL (3.5-5.0); Alkaline Phosphatase 78 U/L (38-126); Potassium 5.9 mmol/L (3.5-5.1); Total Protein 8.2 g/dL (6.3-8.2)
--- NOTE | 2021-07-08 10:52 | CT ---
EXAMINATION TYPE: CT abdomen pelvis w con DATE OF EXAM: 07/08/2021 COMPARISON: 01/29/2021 HISTORY: Abd pain CT DLP: 1111.6 mGycm CONTRAST: CT scan of the abdomen and pelvis is performed without Oral Contrast and with IV Contrast, patient in jected with 100 mL of Isovue 300. FINDINGS: LUNG BASES-: No visible nodule. No infiltrate. LIVER/GB: No calcified gallstones. Hepatic steatosis. No space occupying hepatic lesion. Biliary t ree is of normal caliber. PANCREAS: No inflammation. No distinct mass. SPLEEN: No splenic enlargement. No lesion seen. ADRENALS: No nodule. No thickening. KIDNEYS/BLADDER: No hydronephrosis. No nephrolithiasis. No distinct renal mass. There is urinary b ladder enhancement and mild wall thickening which may reflect cystitis. Correlate clinically. BOWEL: Normal appendix. Normal bowel caliber. No inflammation. GENITAL ORGANS: No gross abnormality. LYMPH NODES: No greater than 1cm abdominal or pelvic lymph nodes are appreciated. AORTA: No significant abnormality. OSSEOUS STRUCTURES: No significant abnormality is seen. OTHER: No significant additional abnormality is seen. IMPRESSION: 1. Hepatic steatosis with underlying hepatomegaly. 2. Correlate for urinary bladder cystitis.
[2021-07-08 11:49] LABS: Appearance,Urine Cloudy (Clear); Bacteria,Urine Rare /hpf; Bilirubin,Urine Negative (Negative); Blood,Urine Small (Negative); Color,Urine Light Yellow; Glucose,Urine (UA) Negative (Negative); Ketones,Urine Trace (Negative); Leukocyte Esterase,Urine Large (Negative); Mucus,Urine Rare /hpf; Nitrite,Urine Negative (Negative); PH, Urine 6.5 (5.0-8.0); Protein,Urine 1+ (Negative); RBC,Urine 15 /hpf (0-5); Specific Gravity,Urine 1.019 (1.001-1.035); Squamous Epithelial Cell,Urine 1 /hpf (0-4); Urobilinogen,Urine <2.0 mg/dL (<2.0); WBC,Urine >182 /hpf (0-5)
[2021-07-08] MEDS ORDERED: cefTRIAXone IN SWFI 1,000 MG/10 ML SYRINGE IVP STA (11:54)
[2021-07-08 12:17] VITALS: BP 138/92; PULSE 88; RESP 16; TEMP 98.7
== END 2021-07-08 12:45 | disposition home or self-care (01) ==
LOC: EC 08:00
DX: N39.0 Urinary tract infection, site not specified (principal); F10.129 Alcohol abuse with intoxication, unspecified; I10 Essential (primary) hypertension; M19.90 Unspecified osteoarthritis, unspecified site; F41.9 Anxiety disorder, unspecified; F32.9 Major depressive disorder, single episode, unspecified; F17.200 Nicotine dependence, unspecified, uncomplicated; Z79.82 Long term (current) use of aspirin; Z88.2 Allergy status to sulfonamides; Z87.440 Personal history of urinary (tract) infections; Y90.8 Blood alcohol level of 240 mg/100 ml or more
CPT/HCPCS: 99284; 96374; 96375 ×5; 96376; 96361; 36415; 80053; 83605; 83690; 85025; 81001; 80320; 87086; 74177; J2060; J1200; J2930; J2405; J0696; Q9967

== ENCOUNTER 2021-08-15 20:52 | Inpatient (IN) | payer BC, OTHER ==
[2021-08-15] MEDS ORDERED: ONDANSETRON 4 MG/2 ML VIAL IVP STA (21:04)
[2021-08-15] MEDS ORDERED: PANTOPRAZOLE 40 MG/10 ML VIAL IVP STA (21:05)
[2021-08-15] MEDS ORDERED: LORazepam 2 MG/ML INJ IV STA (21:19)
[2021-08-15 21:57] LABS: Basophils # (A) 0.1 k/uL (0-0.2); Basophils % (A) 1 %; Eosinophils # (A) 0.1 k/uL (0-0.7); Eosinophils % (A) 1 %; HCT 48.6 % (34.0-46.0); HGB 16.1 gm/dL (11.4-16.0); Lymphocytes # (A) 1.3 k/uL (1.0-4.8); Lymphocytes % (A) 12 %; MCH 32.7 pg (25.0-35.0); MCHC 33.2 g/dL (31.0-37.0); MCV 98.5 fL (80.0-100.0); Mean Platelet Volume 7.7; Monocytes # (A) 0.2 k/uL (0-1.0); Monocytes % (A) 2 %; Neutrophils # (A) 9.6 k/uL (1.3-7.7); Neutrophils % (A) 85 %; Platelet Count 291 k/uL (150-450); RBC 4.93 m/uL (3.80-5.40); RDW 12.8 % (11.5-15.5); WBC 11.3 k/uL (3.8-10.6)
[2021-08-15 22:12] LABS: ALT 34 U/L (4-34); AST 64 U/L (14-36); African American GFR (CKD) >90 (>60 ml/min/1.73 sqM); Albumin 5.1 g/dL (3.5-5.0); Alkaline Phosphatase 90 U/L (38-126); Anion Gap 28 mmol/L; Blood Urea Nitrogen 8 mg/dL (7-17); Calcium 8.4 mg/dL (8.4-10.2); Carbon Dioxide 10 mmol/L (22-30); Chloride 101 mmol/L (98-107); Glucose 95 mg/dL (74-99); Lipase 74 U/L (23-300); Magnesium 1.5 mg/dL (1.6-2.3); Non-African American GFR(CKD) >90 (>60 ml/min/1.73 sqM); Potassium 4.9 mmol/L (3.5-5.1); Sodium 139 mmol/L (137-145); Total Bilirubin 0.8 mg/dL (0.2-1.3); Total Protein 8.6 g/dL (6.3-8.2)
[2021-08-15 22:17] LABS: INR 0.9 (<1.2); Partial Thromboplastin Time 22.7 sec (22.0-30.0)
[2021-08-15 22:22] LABS: Alcohol 276 mg/dL
[2021-08-15] MEDS ORDERED: SODIUM CHLORIDE 0.9% 2,000 ML IV ONE (22:30)
[2021-08-15] MEDS ORDERED: MAGNESIUM SULFATE-D5W PMX 1 GM in DEXTROSE/WATER 1 100ML.BAG IVPB ONE (22:31)
[2021-08-15] MEDS ORDERED: diazePAM 5 MG TAB PO PRN (23:37)
[2021-08-15] MEDS ORDERED: THIAMINE 100 MG/ML 2 ML VIAL IM STA (23:38)
[2021-08-15] MEDS ORDERED: LORazepam 2 MG/ML INJ IV PRN (23:38)
--- NOTE | 2021-08-15 23:49 | ED ---
General Adult HPI - General Chief complaint: Nausea/Vomiting/Diarrhea Stated complaint: vomiting Time Seen by Provider: 08/15/21 21:01 Source: patient, EMS Mode of arrival: EMS Limitations: no limitations - History of Present Illness Initial comments: 61-year-old female with past medical history of alcohol abuse presents emergency department with reports of vomiting. Patient states that today she drank a half pint of whiskey and stopped drinking several hours ago due to nausea. She began having some vomiting and called EMS. She was given 4 mg of Zofran with resolution of her nausea. Patient admits that she drinks heavily daily. She denies any black or bloody stools. History is difficult to obtain due to patient's intoxication. - Related Data Home Medications Medication Instructions Recorded Confirmed [id number] [id number] 2 tab PO Q4HR PRN 05/01/20 08/15/21 [Excedrin] Fexofenadine HCl [Katarzyna Allergy] 180 mg PO DAILY PRN 08/15/21 08/15/21 Allergies Allergy/AdvReac Type Severity Reaction Status Date / Time shellfish derived [Shellfish] Allergy Severe Dyspnea Verified 08/15/21 22:25 iodine Allergy Rash/Hives Verified 08/15/21 22:25 Sulfa (Sulfonamide Allergy Rash/Hives Verified 08/15/21 22:25 Antibiotics) Review of Systems ROS Statement: Those systems with pertinent positive or pertinent negative responses have been documented in the HPI. ROS Other: All systems not noted in ROS Statement are negative. 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 History of Any Multi-Drug Resistant Organisms: None Reported Past Surgical History: Back Surgery Additional Past Surgical History / Comment(s): Cervical surgery at [facility] d/t injury, colonoscopies/benign polypectomy Past Anesthesia/Blood Transfusion Reactions: No Reported Reaction, Motion Sickness Additional Past Anesthesia/Blood Transfusion Reaction / Comment(s): PT has clausterphobia. Past Psychological History: Anxiety, Depression Smoking Status: Current every day smoker Past Alcohol Use History: Abuse, Daily, Occasional Past Drug Use History: None Reported - Past Family History Mother Family Medical History: Cancer Additional Family Medical History / Comment(s): Mother of melanoma Father Family Medical History: No Reported History Additional Family Medical History / Comment(s): Father is healthy General Exam Limitations: no limitations Course Vital Signs 08/15/21 08/15/21 20:55 22:41 Temperature 99.8 F H Pulse Rate 117 H 121 H Respiratory 18 18 Rate Blood Pressure 127/93 131/82 O2 Sat by Pulse 97 97 Oximetry Medical Decision Making - Medical Decision Making Upon arrival patient was placed into room 5. A thorough history and physical exam was performed. IV is established and laboratory studies were conducted. Patient is given a 2 L bolus of normal saline and 1 mg of Ativan. She is also provided with 80 mg of Protonix. Laboratory studies were conducted which demonstrates hemoglobin 16.1. Lactic 8.4. Occult is negative. Alcohol 276. I did discuss results with Dr. Joaquin who agreed to admit the patient. Requesting patient be placed on a bicarbonate drip because of her acidosis. Patient also placed on CIWA protocol and valium per dr joaquin recommendations. Patient remained in hemodynamically stable condition awaiting a bed on the floor - Lab Data Result diagrams: 08/15/21 21:35 08/15/21 21:35 Lab Results 08/15/21 08/15/21 08/15/21 Range/Units 21:35 21:35 21:35 WBC 11.3 H (3.8-10.6) k/uL RBC 4.93 (3.80-5.40) m/uL Hgb 16.1 H (11.4-16.0) gm/dL Hct 48.6 H (34.0-46.0) % MCV 98.5 (80.0-100.0) fL MCH 32.7 (25.0-35.0) pg MCHC 33.2 (31.0-37.0) g/dL RDW 12.8 (11.5-15.5) % Plt Count 291 (150-450) k/uL MPV 7.7 Neutrophils % 85 % Lymphocytes % 12 % Monocytes % 2 % Eosinophils % 1 % Basophils % 1 % Neutrophils # 9.6 H (1.3-7.7) k/uL Lymphocytes # 1.3 (1.0-4.8) k/uL Monocytes # 0.2 (0-1.0) k/uL Eosinophils # 0.1 (0-0.7) k/uL Basophils # 0.1 (0-0.2) k/uL PT 10.0 (9.0-12.0) sec INR 0.9 (<1.2) APTT 22.7 (22.0-30.0) sec Sodium 139 (137-145) mmol/L Potassium 4.9 (3.5-5.1) mmol/L Chloride 101 (98-107) mmol/L Carbon Dioxide 10 L (22-30) mmol/L Anion Gap 28 mmol/L BUN 8 (7-17) mg/dL Creatinine 0.64 (0.52-1.04) mg/dL Est GFR (CKD-EPI)AfAm >90 (>60 ml/min/1.73 sqM) Est GFR (CKD-EPI)NonAf >90 (>60 ml/min/1.73 sqM) Glucose 95 (74-99) mg/dL Plasma Lactic Acid Samuel (0.7-2.0) mmol/L Calcium 8.4 (8.4-10.2) mg/dL Magnesium 1.5 L (1.6-2.3) mg/dL Total Bilirubin 0.8 (0.2-1.3) mg/dL AST 64 H (14-36) U/L ALT 34 (4-34) U/L Alkaline Phosphatase 90 (38-126) U/L Troponin I (0.000-0.034) ng/mL Total Protein 8.6 H (6.3-8.2) g/dL Albumin 5.1 H (3.5-5.0) g/dL Lipase 74 (23-300) U/L Urine Color Urine Appearance (Clear) Urine pH (5.0-8.0) Ur Specific [place] (1.001-1.035) Urine Protein (Negative) Urine Glucose (UA) (Negative) Urine Ketones (Negative) Urine Blood (Negative) Urine Nitrite (Negative) Urine Bilirubin (Negative) Urine Urobilinogen (<2.0) mg/dL Ur Leukocyte Esterase (Negative) Urine RBC (0-5) /hpf Urine WBC (0-5) /hpf Ur Squamous Epith Cells (0-4) /hpf Hyaline Casts (0-2) /lpf Granular Casts (0) /lpf Urine Mucus (None) /hpf Stool Occult Blood (Negative) Serum Alcohol 276 H* mg/dL Blood Type Blood Type Recheck Bld Type Recheck Status Antibody Screen Spec Expiration Date 08/15/21 08/15/21 08/15/21 Range/Units 21:35 21:35 21:35 WBC (3.8-10.6) k/uL RBC (3.80-5.40) m/uL Hgb (11.4-16.0) gm/dL Hct (34.0-46.0) % MCV (80.0-100.0) fL MCH (25.0-35.0) pg MCHC (31.0-37.0) g/dL RDW (11.5-15.5) % Plt Count (150-450) k/uL MPV Neutrophils % % Lymphocytes % % Monocytes % % Eosinophils % % Basophils % % Neutrophils # (1.3-7.7) k/uL Lymphocytes # (1.0-4.8) k/uL Monocytes # (0-1.0) k/uL Eosinophils # (0-0.7) k/uL Basophils # (0-0.2) k/uL PT (9.0-12.0) sec INR (<1.2) APTT (22.0-30.0) sec Sodium (137-145) mmol/L Potassium (3.5-5.1) mmol/L Chloride (98-107) mmol/L Carbon Dioxide (22-30) mmol/L Anion Gap mmol/L BUN (7-17) mg/dL Creatinine (0.52-1.04) mg/dL Est GFR (CKD-EPI)AfAm (>60 ml/min/1.73 sqM) Est GFR (CKD-EPI)NonAf (>60 ml/min/1.73 sqM) Glucose (74-99) mg/dL Plasma Lactic Acid Samuel 8.4 H* (0.7-2.0) mmol/L Calcium (8.4-10.2) mg/dL Magnesium (1.6-2.3) mg/dL Total Bilirubin (0.2-1.3) mg/dL AST (14-36) U/L ALT (4-34) U/L Alkaline Phosphatase (38-126) U/L Troponin I <0.012 (0.000-0.034) ng/mL Total Protein (6.3-8.2) g/dL Albumin (3.5-5.0) g/dL Lipase (23-300) U/L Urine Color Urine Appearance (Clear) Urine pH (5.0-8.0) Ur Specific [place] (1.001-1.035) Urine Protein (Negative) Urine Glucose (UA) (Negative) Urine Ketones (Negative) Urine Blood (Negative) Urine Nitrite (Negative) Urine Bilirubin (Negative) Urine Urobilinogen (<2.0) mg/dL Ur Leukocyte Esterase (Negative) Urine RBC (0-5) /hpf Urine WBC (0-5) /hpf Ur Squamous Epith Cells (0-4) /hpf Hyaline Casts (0-2) /lpf Granular Casts (0) /lpf Urine Mucus (None) /hpf Stool Occult Blood (Negative) Serum Alcohol mg/dL Blood Type A Negative Blood Type Recheck A Neg Bld Type Recheck Status No Antibody Screen NEGATIVE Spec Expiration Date 08/18/2021 - 233408/15/21 08/15/21 Range/Units 22:54 23:40 WBC (3.8-10.6) k/uL RBC (3.80-5.40) m/uL Hgb (11.4-16.0) gm/dL Hct (34.0-46.0) % MCV (80.0-100.0) fL MCH (25.0-35.0) pg MCHC (31.0-37.0) g/dL RDW (11.5-15.5) % Plt Count (150-450) k/uL MPV Neutrophils % % Lymphocytes % % Monocytes % % Eosinophils % % Basophils % % Neutrophils # (1.3-7.7) k/uL Lymphocytes # (1.0-4.8) k/uL Monocytes # (0-1.0) k/uL Eosinophils # (0-0.7) k/uL Basophils # (0-0.2) k/uL PT (9.0-12.0) sec INR (<1.2) APTT (22.0-30.0) sec Sodium (137-145) mmol/L Potassium (3.5-5.1) mmol/L Chloride (98-107) mmol/L Carbon Dioxide (22-30) mmol/L Anion Gap mmol/L BUN (7-17) mg/dL Creatinine (0.52-1.04) mg/dL Est GFR (CKD-EPI)AfAm (>60 ml/min/1.73 sqM) Est GFR (CKD-EPI)NonAf (>60 ml/min/1.73 sqM) Glucose (74-99) mg/dL Plasma Lactic Acid Samuel (0.7-2.0) mmol/L Calcium (8.4-10.2) mg/dL Magnesium (1.6-2.3) mg/dL Total Bilirubin (0.2-1.3) mg/dL AST (14-36) U/L ALT (4-34) U/L Alkaline Phosphatase (38-126) U/L Troponin I (0.000-0.034) ng/mL Total Protein (6.3-8.2) g/dL Albumin (3.5-5.0) g/dL Lipase (23-300) U/L Urine Color Yellow Urine Appearance Cloudy H (Clear) Urine pH 6.0 (5.0-8.0) Ur Specific [place] 1.022 (1.001-1.035) Urine Protein 3+ H (Negative) Urine Glucose (UA) Negative (Negative) Urine Ketones 4+ H (Negative) Urine Blood Moderate H (Negative) Urine Nitrite Negative (Negative) Urine Bilirubin Negative (Negative) Urine Urobilinogen <2.0 (<2.0) mg/dL Ur Leukocyte Esterase Large H (Negative) Urine RBC 38 H (0-5) /hpf Urine WBC >182 H (0-5) /hpf Ur Squamous Epith Cells 2 (0-4) /hpf Hyaline Casts 61 H (0-2) /lpf Granular Casts 7 (0) /lpf Urine Mucus Few H (None) /hpf Stool Occult Blood Negative (Negative) Serum Alcohol mg/dL Blood Type Blood Type Recheck Bld Type Recheck Status Antibody Screen Spec Expiration Date Disposition Clinical Impression: Alcohol intoxication, Alcoholic ketoacidosis, Hematemesis Disposition: ADMITTED IP TO THIS HOSP Condition: Serious Is patient prescribed a controlled substance at d/c from ED?: No Decision to Admit Reason: Admit from EC Decision Date: 08/15/21 Decision Time: 23:49
[2021-08-15] MEDS ORDERED: NALOXONE 0.4 MG/ML 1 ML VIAL IV PRN (23:50)
[2021-08-15 23:52] LABS: Appearance,Urine Cloudy (Clear); Bilirubin,Urine Negative (Negative); Blood,Urine Moderate (Negative); Color,Urine Yellow; Glucose,Urine (UA) Negative (Negative); Granular Casts,Urine 7 /lpf (0); Hyaline Casts,Urine 61 /lpf (0-2); Ketones,Urine 4+ (Negative); Leukocyte Esterase,Urine Large (Negative); Mucus,Urine Few /hpf; Nitrite,Urine Negative (Negative); Protein,Urine 3+ (Negative); RBC,Urine 38 /hpf (0-5); Specific Gravity,Urine 1.022 (1.001-1.035); Squamous Epithelial Cell,Urine 2 /hpf (0-4); Urobilinogen,Urine <2.0 mg/dL (<2.0); WBC,Urine >182 /hpf (0-5)
[2021-08-16] MEDS: LORazepam 2 MG/ML INJ IV PRN ×6 (00:45→20:45)
[2021-08-16] MEDS: DEXTROSE 5% IN WATER 1,000 ML with SODIUM BICARB (1 MEQ/ML) 150 ML IV SCH (00:45)
[2021-08-16 05:16] LABS: African American GFR (CKD) >90 (>60 ml/min/1.73 sqM); Anion Gap 21 mmol/L; Blood Urea Nitrogen 7 mg/dL (7-17); Calcium 7.6 mg/dL (8.4-10.2); Chloride 101 mmol/L (98-107); Glucose 114 mg/dL (74-99); Non-African American GFR(CKD) >90 (>60 ml/min/1.73 sqM); Potassium 4.5 mmol/L (3.5-5.1); Sodium 131 mmol/L (137-145)
[2021-08-16 05:17] LABS: Carbon Dioxide 9 mmol/L (22-30)
[2021-08-16 05:20] LABS: Basophils % (A) 0 %; Eosinophils # (A) 0.1 k/uL (0-0.7); Eosinophils % (A) 1 %; HGB 13.4 gm/dL (11.4-16.0); Lymphocytes # (A) 0.8 k/uL (1.0-4.8); Lymphocytes % (A) 6 %; MCH 33.2 pg (25.0-35.0); MCHC 33.6 g/dL (31.0-37.0); MCV 98.9 fL (80.0-100.0); Monocytes # (A) 0.5 k/uL (0-1.0); Monocytes % (A) 4 %; Neutrophils # (A) 11.9 k/uL (1.3-7.7); Neutrophils % (A) 89 %; Platelet Count 208 k/uL (150-450); RBC 4.05 m/uL (3.80-5.40); RDW 12.9 % (11.5-15.5); WBC 13.4 k/uL (3.8-10.6)
[2021-08-16] MEDS: THIAMINE 100 MG TAB PO SCH ×3 (07:28→20:07)
[2021-08-16] MEDS: ONDANSETRON 4 MG/2 ML VIAL IVP PRN (08:50)
[2021-08-16] MEDS ORDERED: PANTOPRAZOLE 40 MG/10 ML VIAL IV SCH (09:00)
[2021-08-16] MEDS: diazePAM 5 MG TAB PO SCH ×3 (12:56→23:08)
--- NOTE | 2021-08-16 13:51 | P.HPIM ---
History of Present Illness H&P Date: 08/16/21 Chief Complaint: Weak and tired History of presenting complaint: This is a 61-year-old patient . Initially admitted on 2019. following a fall for alcohol intoxication. found to have a spinal cord concussion and transferred out to [facility]. Patient did undergo surgery at [facility] was then in rehab. Did well subsequently. Patient subsequently has gone back on taking alcohol. Patient's had multiple admissions for alcohol intoxication. Patient continues to drink about couple pints of whiskey daily. Her also drinks beer at home. Does use a walker. Has not been eating well. Started having nausea vomiting yesterday. Did vomited blood at least 2 times. Has been eating much at home. Has upper abdominal pain. No fever no chills. Does not remember having black or dark stools or bloody stools. Feels weak diet. Last drink was day before. Alcohol level was 276 on presentation patient has received her COVID-19 vaccine. Also smokes a few cigarettes a day. Review of systems: GEN.: Tired decreased appetite EYES: None HEENT: None NECK: None RESPIRATORY: Some baseline shortness of breath CARDIOVASCULAR: None GASTROINTESTINAL: As above GENITOURINARY: None MUSCULOSKELETAL: Chronic joint pains LYMPHATICS: None HEMATOLOGICAL: As above PSYCHIATRY: Anxious NEUROLOGICAL: Tremors. Does use a walker. Past medical history to include: Spinal cord concussion secondary to fall, chronic alcohol syndrome, chronic nicotine dependence, Social history: Lives with her ,'s drinks at least one-to pint of whiskey a day, smoking since 1997 Family history: Mother of melanoma Physical examination: VITAL SIGNS: 99.8, 117, 18, 10/08/1992, 97% room air GENERAL: BMI 23.6, laying in bed, tired EYES: Pupils equal. Conjunctiva normal. HEENT: External appearance of nose and ears normal, oral cavity grossly normal. NECK: JVD not raised; masses not palpable. HEART: First and second heart sounds are normal; no edema. LUNGS:[ Respiratory rate increased; decreased breath sounds, ABDOMEN: Soft, mildly epigastric tenderness, no guarding rigidity liver spleen not palpable, no masses palpable. PSYCH: Alert and oriented x3; mood and affect anxious. NEUROLOGICAL: Cranial nerves grossly intact; no facial asymmetry, power and sensation grossly intact. Tremors present LYMPHATICS: No lymph nodes palpable in the axilla and neck. INVESTIGATIONS, reviewed in the clinical context: White count 11.3 hemoglobin 16.1 platelets 291 sodium 139 potassium 4.9 creatinine 0.64. Bicarbonate 9 Lactic acid 8.4 magnesia 1.5 Serum alcohol 276 Coronavirus [PCR]: Not detected Assessment and plan: -Hematemesis in a patient who is a chronic alcoholic. Differential includes gastritis/esophagitis, peptic ulcer disease. GI services not available in the hospital. Consult surgery. Nothing by mouth. PPI. -Mild hyponatremia from excessive water intake. Increase food intake Follow closely -Acute alcohol intoxication, Watch for withdrawals -Severe metabolic acidosis from alcoholism Sodium bicarbonate drip -Alcohol withdrawal syndrome Valium 5 mg 3 times a day. CIWA scale. -Alcohol use disorder Counseled about the same -Chronic nicotine dependence, patient's cigarette smoker Nicotine patch -Alcoholic hepatitis Follow LFTs -Chronic left shoulder pain Pain controlled -Alcoholic myopathy, causing gait dysfunction Fall precautions. -Type II lactic acidosis Hydrate patient IV PPI. Nothing by mouth. IV fluids. Sodium bicarbonate drip. Follow H&H. Consult surgery. GI services not available in the hospital. Discussed with patient. Given the complexity and severity of patient's condition expect the patient to be in the hospital at least for 2 overnights Past Medical History Past Medical History: Hypertension, Osteoarthritis (OA) Additional Past Medical History / Comment(s): FallSeptember 2019 with neck injury/L arm weak/decreased sensation and weakness to L leg-sent to [facility] and had cervical surgery, chronic cervical/L shoulder pain since surgery, chronic low back pain for years, ETOH abuse-pt states she has had withdra wals/shaking/weakness/nausea/one seizure long ago, alcoholic hepatitis, 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 History of Any Multi-Drug Resistant Organisms: None Reported Past Surgical History: Back Surgery Additional Past Surgical History / Comment(s): Cervical surgery at [facility] d/t injury, colonoscopies/benign polypectomy Past Anesthesia/Blood Transfusion Reactions: No Reported Reaction, Motion Si ckness Additional Past Anesthesia/Blood Transfusion Reaction / Comment(s): PT has clausterphobia. Past Psychological History: Anxiety, Depression Additional Psychological History / Comment(s): Pt resides with her spouse. She is independent. Smoking Status: Current every day smoker Past Alcohol Use History: Abuse, Daily, Occasional Additional Past Alcohol Use History / Comment(s): Pt started smoking in 1997 and a pack will last 4 days. Pt drinks on average a pint of whiskey per day-she has quit several times and once quit for 5 yrs. Past Drug Use History: None Reported - Past Family History Mother Family Medical History: Cancer Additional Family Medical History / Comment(s): Mother of melanoma Father Family Medical History: No Reported History Additional Family Medical History / Comment(s): Father is healthy Medications and Allergies Home Medications Medication Instructions Recorded Confirmed Type Tthnnxo-Ixch-Hevl [id number] 2 tab PO Q4HR PRN 05/01/20 08/15/21 History [Excedrin] Fexofenadine HCl [Katarzyna Allergy] 180 mg PO DAILY PRN 08/15/21 08/15/21 History Allergies Allergy/AdvReac Type Severity Reaction Status Date / Time shellfish derived [Shellfish] Allergy Severe Dyspnea Verified 08/15/21 22:25 iodine Allergy Rash/Hives Verified 08/15/21 22:25 Sulfa (Sulfonamide Allergy Rash/Hives Verified 08/15/21 22:25 Antibiotics) Physical Exam Vitals: Vital Signs Temp Pulse Pulse Resp BP BP Pulse Ox 08/16/21 07:30 99.2 F 112 H 18 130/75 96 08/16/21 03:53 105 H 18 133/79 97 08/16/21 01:00 110 H 20 142/75 97 08/16/21 00:19 98.2 F 110 H 18 139/79 97 08/15/21 22:41 121 H 18 131/82 97 08/15/21 20:55 99.8 F H 117 H 18 127/93 97 Intake and Output 08/15/21 08/16/21 08/16/21 22:59 06:59 14:59 Other: Weight 72.575 kg 72.575 kg Results CBC & Chem 7: 08/16/21 04:23 08/16/21 04:23 Labs: Abnormal Lab Results - Last 24 Hours (Table) 08/15/21 08/15/21 08/15/21 Range/Units 21:35 21:35 21:35 WBC 11.3 H (3.8-10.6) k/uL Hgb 16.1 H (11.4-16.0) gm/dL Hct 48.6 H (34.0-46.0) % Neutrophils # 9.6 H (1.3-7.7) k/uL Lymphocytes # (1.0-4.8) k/uL Sodium (137-145) mmol/L Carbon Dioxide 10 L (22-30) mmol/L Glucose (74-99) mg/dL Plasma Lactic Acid Samuel 8.4 H* (0.7-2.0) mmol/L Calcium (8.4-10.2) mg/dL Magnesium 1.5 L (1.6-2.3) mg/dL AST 64 H (14-36) U/L Total Protein 8.6 H (6.3-8.2) g/dL Albumin 5.1 H (3.5-5.0) g/dL Urine Appearance (Clear) Urine Protein (Negative) Urine Ketones (Negative) Urine Blood (Negative) Ur Leukocyte Esterase (Negative) Urine RBC (0-5) /hpf Urine WBC (0-5) /hpf Hyaline Casts (0-2) /lpf Urine Mucus (None) /hpf Serum Alcohol 276 H* mg/dL 08/15/21 08/16/21 08/16/21 Range/Units 23:40 00:59 04:20 WBC (3.8-10.6) k/uL Hgb (11.4-16.0) gm/dL Hct (34.0-46.0) % Neutrophils # (1.3-7.7) k/uL Lymphocytes # (1.0-4.8) k/uL Sodium (137-145) mmol/L Carbon Dioxide (22-30) mmol/L Glucose (74-99) mg/dL Plasma Lactic Acid Samuel 5.2 H* 3.2 H* (0.7-2.0) mmol/L Calcium (8.4-10.2) mg/dL Magnesium (1.6-2.3) mg/dL AST (14-36) U/L Total Protein (6.3-8.2) g/dL Albumin (3.5-5.0) g/dL Urine Appearance Cloudy H (Clear) Urine Protein 3+ H (Negative) Urine Ketones 4+ H (Negative) Urine Blood Moderate H (Negative) Ur Leukocyte Esterase Large H (Negative) Urine RBC 38 H (0-5) /hpf Urine WBC >182 H (0-5) /hpf Hyaline Casts 61 H (0-2) /lpf Urine Mucus Few H (None) /hpf Serum Alcohol mg/dL 08/16/21 08/16/21 Range/Units 04:23 04:23 WBC 13.4 H (3.8-10.6) k/uL Hgb (11.4-16.0) gm/dL Hct (34.0-46.0) % Neutrophils # 11.9 H (1.3-7.7) k/uL Lymphocytes # 0.8 L (1.0-4.8) k/uL Sodium 131 L (137-145) mmol/L Carbon Dioxide 9 L* (22-30) mmol/L Glucose 114 H (74-99) mg/dL Plasma Lactic Acid Samuel (0.7-2.0) mmol/L Calcium 7.6 L (8.4-10.2) mg/dL Magnesium (1.6-2.3) mg/dL AST (14-36) U/L Total Protein (6.3-8.2) g/dL Albumin (3.5-5.0) g/dL Urine Appearance (Clear) Urine Protein (Negative) Urine Ketones (Negative) Urine Blood (Negative) Ur Leukocyte Esterase (Negative) Urine RBC (0-5) /hpf Urine WBC (0-5) /hpf Hyaline Casts (0-2) /lpf Urine Mucus (None) /hpf Serum Alcohol mg/dL Thrombosis Risk Factor Assmnt - Choose All That Apply Any of the Below Risk Factors Present?: Yes Each Factor Represents 1 point: Age 41-60 years Thrombosis Risk Factor Assessment Total Risk Factor Score: 1 Thrombosis Risk Factor Assessment Level: Low Risk
[2021-08-16] MEDS: NICOTINE 7MG/24HR PATCH TRANSDERM SCH (20:06)
[2021-08-16] MEDS: METOPROLOL TARTRATE 12.5 MG TAB PO SCH (20:07)
[2021-08-17] MEDS: PANTOPRAZOLE 40 MG/10 ML VIAL IV SCH ×3 (00:06→21:26)
[2021-08-17] MEDS: DEXTROSE 5% IN WATER 1,000 ML with SODIUM BICARB (1 MEQ/ML) 150 ML IV SCH ×2 (01:51→08:24)
[2021-08-17] MEDS: METOPROLOL TARTRATE 12.5 MG TAB PO SCH ×4 (03:17→21:25)
[2021-08-17] MEDS: LORazepam 2 MG/ML INJ IV PRN ×2 (03:24→06:36)
[2021-08-17] MEDS: ONDANSETRON 4 MG/2 ML VIAL IVP PRN (03:24)
[2021-08-17 05:20] LABS: Basophils % (A) 0 %; Eosinophils # (A) 0.2 k/uL (0-0.7); Eosinophils % (A) 2 %; HCT 37.6 % (34.0-46.0); HGB 13.1 gm/dL (11.4-16.0); Lymphocytes # (A) 1.3 k/uL (1.0-4.8); Lymphocytes % (A) 20 %; MCH 33.2 pg (25.0-35.0); MCHC 34.9 g/dL (31.0-37.0); MCV 94.9 fL (80.0-100.0); Mean Platelet Volume 7.8; Monocytes # (A) 0.3 k/uL (0-1.0); Monocytes % (A) 4 %; Neutrophils # (A) 4.5 k/uL (1.3-7.7); Neutrophils % (A) 72 %; Platelet Count 137 k/uL (150-450); RBC 3.96 m/uL (3.80-5.40); RDW 12.5 % (11.5-15.5); WBC 6.3 k/uL (3.8-10.6)
[2021-08-17 05:34] LABS: African American GFR (CKD) >90 (>60 ml/min/1.73 sqM); Anion Gap 13 mmol/L; Blood Urea Nitrogen 5 mg/dL (7-17); Calcium 8.5 mg/dL (8.4-10.2); Carbon Dioxide 23 mmol/L (22-30); Chloride 97 mmol/L (98-107); Glucose 105 mg/dL (74-99); Non-African American GFR(CKD) >90 (>60 ml/min/1.73 sqM); Potassium 3.5 mmol/L (3.5-5.1); Sodium 133 mmol/L (137-145)
[2021-08-17] MEDS: THIAMINE 100 MG TAB PO SCH ×2 (07:35→17:14)
[2021-08-17] MEDS: NICOTINE 7MG/24HR PATCH TRANSDERM SCH (08:24)
[2021-08-17] MEDS: diazePAM 5 MG TAB PO SCH ×3 (08:25→21:25)
--- NOTE | 2021-08-17 11:34 | P.GSCN ---
History of Present Illness Consult date: 08/17/21 History of present illness: CHIEF COMPLAINT: Vomiting blood HISTORY OF PRESENT ILLNESS: This is a 61-year-old female with a known history of alcohol abuse. She presents to emergency room with complaints of vomiting. Patient reports she had 3 episodes of vomiting about 2 days ago. Patient reports that she vomited large bright red blood. Patient states that she's n ever had an EGD completed. She had similar symptoms in January and was seen by GI service. They were concerned of a Anuradha-Ramesh tear. No endoscopy done at that time. Hemoglobin had remained stable. Hemoglobin on admission was 16.1 is now 13.1. Patient has had no further vomiting. Currently denies any abdominal pain since she received pain medication. Otherwise she had been having epigastric pain. Patient denies any blood in her stools. Fecal occult blood was negative. PAST MEDICAL HISTORY: Alcohol abuse, possible Anuradha-Ramesh tear, hypertension, osteoarthritis, history of neck injury requiring surgery, alcoholic hepatitis, benign colon polyps, PAST SURGICAL HISTORY: Cervical spine surgery, colonoscopies anxiety and depression MEDICATIONS: See list. ALLERGIES: See list. SOCIAL HISTORY: No illicit drug use. REVIEW OF SYSTEMS: CONSTITUTIONAL: Denies fever or chills. HEENT: Denies blurred vision, vision changes, or eye pain. Denies hemoptysis CARDIOVASCULAR: Denies chest pain or pressure. RESPIRATORY: No shortness of breath. GASTROINTESTINAL: See HPI for pertinent findings HEMATOLOGIC: Denies bleeding disorders. GENITOURINARY: Denies any blood in urine or increased urinary frequency. SKIN: Denies pruitis. Denies rash. PHYSICAL EXAM: VITAL SIGNS: Reviewed GENERAL: Well-developed in no acute distress. HEENT: No sclera icterus. Extraocular movements grossly intact. Moist buccal mucosa. Head is atraumatic, normocephalic. No nasal drainage. ABDOMEN: Soft. Nondistended. Nontender NEUROLOGIC: Alert and oriented. Cranial nerves II through XII grossly intact. LABORATORY DATA: WBC 13.4 down to 6.3 hemoglobin 16.1 down to 13.1 platelets 137 Sodium 133 potassium 3.5 CO2 up from 9-23 creatinine 0.5 Magnesium 1.5 AST 64 ALT 34 total bilirubin 0.8 Lipase 74 Stool for occult blood negative EtOH 276 EKG sinus tachycardia IMAGING: ASSESSMENT: 1. Hematemesis and epigastric abdominal pain 2. History of chronic alcohol abuse 3. Prior history of possible Anuradha-Ramesh tear 4. Alcohol intoxication PLAN: -Patient scheduled for EGD today with Dr. Matos -Keep patient nothing by mouth -Continue supportive care -Continue to monitor for any signs or symptoms of bleeding -Continue monitoring hemoglobin -Continue IV fluids -Continue PPI Thank you for this consultation Physician Residential Aide note has been reviewed by physician. Signing provider agrees with the documented findings, assessment, and plan of care. 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 History of Any Multi-Drug Resistant Organisms: None Reported Past Surgical History: Back Surgery Additional Past Surgical History / Comment(s): Cervical surgery at [facility] d/t injury, colonoscopies/benign polypectomy Past Anesthesia/Blood Transfusion Reactions: No Reported Reaction, Motion Sickness Additional Past Anesthesia/Blood Transfusion Reaction / Comm: PT has clausterphobia. Past Psychological History: Anxiety, Depression Additional Psychological History / Comment(s): Pt resides with her spouse. She is independent. Smoking Status: Current every day smoker Past Alcohol Use History: Abuse, Daily, Occasional Additional Past Alcohol Use History / Comment(s): Pt started smoking in 1997 and a pack will last 4 days. Pt drinks on average a pint of whiskey per day-she has quit several times and once quit for 5 yrs. Past Drug Use History: None Reported - Past Family History Mother Family Medical History: Cancer Additional Family Medical History / Comment(s): Mother of melanoma Father Family Medical History: No Reported History Additional Family Medical History / Comment(s): Father is healthy Medications and Allergies Home Medications Medication Instructions Recorded Confirmed Type Rqllita-Uuik-Vxcx [id number] 2 tab PO Q4HR PRN 05/01/20 08/15/21 History [Excedrin] Fexofenadine HCl [Katarzyna Allergy] 180 mg PO DAILY PRN 08/15/21 08/15/21 History Allergies Allergy/AdvReac Type Severity Reaction Status Date / Time shellfish derived [Shellfish] Allergy Severe Dyspnea Verified 08/15/21 22:25 iodine Allergy Rash/Hives Verified 08/15/21 22:25 Sulfa (Sulfonamide Allergy Rash/Hives Verified 08/15/21 22:25 Antibiotics) Surgical - Exam Vital Signs Temp Pulse Resp BP Pulse Ox 99.8 F H 117 H 18 127/93 97 08/15/21 20:55 08/15/21 20:55 08/15/21 20:55 08/15/21 20:55 08/15/21 20:55 Results - Labs 08/17/21 04:42 08/17/21 04:42 Abnormal Lab Results - Last 24 Hours (Table) 08/17/21 08/17/21 Range/Units 04:42 04:42 Plt Count 137 L (150-450) k/uL Sodium 133 L (137-145) mmol/L Chloride 97 L (98-107) mmol/L BUN 5 L (7-17) mg/dL Creatinine 0.50 L (0.52-1.04) mg/dL Glucose 105 H (74-99) mg/dL Microbiology - Last 24 Hours (Table) 08/15/21 23:40 Urine Culture - Preliminary Urine,Voided Diabetes panel 08/17/21 Range/Units 04:42 Sodium 133 L (137-145) mmol/L Potassium 3.5 (3.5-5.1) mmol/L Chloride 97 L (98-107) mmol/L Carbon Dioxide 23 (22-30) mmol/L BUN 5 L (7-17) mg/dL Creatinine 0.50 L (0.52-1.04) mg/dL Glucose 105 H (74-99) mg/dL Calcium 8.5 (8.4-10.2) mg/dL Calcium panel 08/17/21 Range/Units 04:42 Calcium 8.5 (8.4-10.2) mg/dL Pituitary panel 08/17/21 Range/Units 04:42 Sodium 133 L (137-145) mmol/L Potassium 3.5 (3.5-5.1) mmol/L Chloride 97 L (98-107) mmol/L Carbon Dioxide 23 (22-30) mmol/L BUN 5 L (7-17) mg/dL Creatinine 0.50 L (0.52-1.04) mg/dL Glucose 105 H (74-99) mg/dL Calcium 8.5 (8.4-10.2) mg/dL Adrenal panel 08/17/21 Range/Units 04:42 Sodium 133 L (137-145) mmol/L Potassium 3.5 (3.5-5.1) mmol/L Chloride 97 L (98-107) mmol/L Carbon Dioxide 23 (22-30) mmol/L BUN 5 L (7-17) mg/dL Creatinine 0.50 L (0.52-1.04) mg/dL Glucose 105 H (74-99) mg/dL Calcium 8.5 (8.4-10.2) mg/dL
--- NOTE | 2021-08-17 13:53 | P.PN ---
Progress Note - Text Progress Note Date: 08/17/21 Chief Complaint: Weak and tired History of presenting complaint: This is a 61-year-old patient . Initially admitted on 2019. following a fall for alcohol intoxication. found to have a spinal cord concussion and transferred out to [facility]. Patient did undergo surgery at [facility] was then in rehab. Did well subsequently. Patient subsequently has gone back on taking alcohol. Patient's had multiple admissions for alcohol intoxication. Patient continues to drink about couple pints of whiskey daily. Her also drinks beer at home. Does use a walker. Has not been eating well. Started having nausea vomiting yesterday. Did vomited blood at least 2 times. Has been eating much at home. Has upper abdominal pain. No fever no chills. Does not remember having black or dark stools or bloody stools. Feels weak diet. Last drink was day before. Alcohol level was 276 on presentation patient has received her COVID-19 vaccine. Also smokes a few cigarettes a day. August 17: Normal vomiting blood. Some epigastric discomfort. Pending EGD this afternoon. Tremors present. Anxious. Review of systems: Was done for constitutional, cardiovascular, GI, pulmonary. relevant finding as above Active Medications Diazepam (Diazepam 5 Mg Tab) 5 mg PO TID [facility] Last Admin: 08/17/21 08:25 Dose: 5 mg Documented by: Sodium Bicarbonate 150 ml/ (Dextrose/Water) 1,150 mls @ 75 mls/hr IV .[id number] [facility] Last Admin: 08/17/21 08:24 Dose: Not Given Documented by: Lorazepam (Lorazepam 2 Mg/Ml Inj) 1 mg IV Q2HR PRN PRN Reason: CIWA 8 or 9 Last Admin: 08/17/21 06:36 Dose: 1 mg Documented by: Lorazepam (Lorazepam 2 Mg/Ml Inj) 2 mg IV Q10M PRN PRN Reason: CIWA 16 or higher Stop: 08/17/21 23:38 Metoprolol Tartrate (Metoprolol Tartrate 12.5 Mg Tab) 12.5 mg PO TID [facility] Last Admin: 08/17/21 08:25 Dose: 12.5 mg Documented by: Naloxone HCl (Naloxone 0.4 Mg/Ml 1 Ml Vial) 0.2 mg IV Q2M PRN PRN Reason: Opioid Reversal Nicotine (Nicotine 7mg/24hr Patch) 1 patch TRANSDERM DAILY [facility] Last Admin: 08/17/21 08:24 Dose: Not Given Documented by: Ondansetron HCl (Ondansetron 4 Mg/2 Ml Vial) 4 mg IVP Q6HR PRN PRN Reason: Nausea And Vomiting Last Admin: 08/17/21 03:24 Dose: 4 mg Documented by: Pantoprazole Sodium (Pantoprazole 40 Mg/10 Ml Vial) 40 mg IV BID [facility] Last Admin: 08/17/21 08:25 Dose: 40 mg Documented by: Thiamine HCl (Thiamine 100 Mg Tab) 100 mg PO BID-W/MEALS [facility] Last Admin: 08/17/21 07:35 Dose: Not Given Documented by: Past medical history to include: Spinal cord concussion secondary to fall, chronic alcohol syndrome, chronic nicotine dependence, Social history: Lives with her ,'s drinks at least one-to pint of whiskey a day, smoking since 1997 Family history: Mother of melanoma Physical examination: VITAL SIGNS: 98, 92, 16, 155/98, 96% room air GENERAL: , laying in bed, tired EYES: Pupils equal. Conjunctiva normal. HEENT: External appearance of nose and ears normal, oral cavity grossly normal. NECK: JVD not raised; masses not palpable. HEART: First and second heart sounds are normal; no edema. LUNGS:[ Respiratory rate increased; decreased breath sounds, ABDOMEN: Soft, mildly epigastric tenderness, no guarding rigidity liver spleen not palpable, no masses palpable. PSYCH: Alert and oriented x3; mood and affect anxious. NEUROLOGICAL: Cranial nerves grossly intact; no facial asymmetry, power and sensation grossly intact. Tremors present INVESTIGATIONS, reviewed in the clinical context: August 17: White count 6.3 hemoglobin 13.1 potassium 3.5 sodium 133 creatinine 0.5 magnesium 1.5 White count 11.3 hemoglobin 16.1 platelets 291 sodium 139 potassium 4.9 creatinine 0.64. Bicarbonate 9 Lactic acid 8.4 magnesia 1.5 Serum alcohol 276 Coronavirus [PCR]: Not detected Assessment and plan: -Hematemesis in a patient who is a chronic alcoholic. Differential includes gastritis/esophagitis, peptic ulcer disease. GI services not available in the hospital. Consult surgery. Nothing by mouth. PPI. Pending EGD today -Mild hyponatremia from excessive water intake. Follow closely -Acute alcohol intoxication, Watch for withdrawals -Severe metabolic acidosis from alcoholism: Better Sodium bicarbonate drip-discontinue -Alcohol withdrawal syndrome Valium 5 mg 3 times a day. Lopressor for tremors. CIWA scale. -Hypomagnesemia Magnesium oxide -Alcohol use disorder Counseled about the same -Chronic nicotine dependence, patient's cigarette smoker Nicotine patch -Alcoholic hepatitis Follow LFTs -Chronic left shoulder pain Pain controlled -Alcoholic myopathy, causing gait dysfunction Fall precautions. -Type II lactic acidosis: Corrected Hydrate patient Continue PPI. Valium. Lopressor. Pending EGD. Discussed with patient. DC bicarbonate drip. d5.45 drip.
[2021-08-17] MEDS ORDERED: IV FLUID CONTINUATION 1,000 ML IV ONE (13:57)
[2021-08-17] MEDS ORDERED: LIDOCAINE 1% INJ 10MG/ML (20 ML MDV) ONE (14:07)
[2021-08-17] MEDS ORDERED: PROPOFOL 10 MG/ML 20 ML VIAL IV ONE (14:07)
[2021-08-17] MEDS ORDERED: MIDAZOLAM 2 MG/2 ML VIAL ONE (14:07)
--- NOTE | 2021-08-17 14:31 | P.OP ---
Date of Procedure: 08/17/21 Preoperative Diagnosis: Upper GI bleed Postoperative Diagnosis: Esophagitis Procedure(s) Performed: EGD Anesthesia: MAC Surgeon: Hong Matos Pathology: other (Esophagus, antrum, duodenum) Condition: stable Disposition: PACU Description of Procedure: The patient's placed on the endoscopy table in the lateral position. She received IV sedation. The gastro-/oropharynx passed in the esophagus into the stomach. Scope was then placed through the pylorus. The first and second portion of the duodenum appeared minimally inflamed. A biopsies performed. Scope was then brought back the antrum this was mildly inflamed. A biopsies performed. The scope was then retroflexed and the remainder the stomach appeared normal. The GE junction was at 40 cm. The distal esophagus appeared inflamed with evidence of a small erosion. A biopsies performed. The proximal esophagus appeared normal. There was no evidence of any significant upper GI bleed. His presumed the patient may have bleeding from esophagitis
[2021-08-17] MEDS ORDERED: HYDROmorphone 0.5 MG/0.5 ML SYRINGE IVP ONE (15:18)
[2021-08-17] MEDS ORDERED: LACTATED RINGERS 1,000 ML IV ONE ×2 (15:20)
[2021-08-17] MEDS: MAGNESIUM OXIDE 400 MG TAB PO SCH ×2 (17:15→21:25)
[2021-08-17] MEDS: DEXTROSE 5%-0.45% NACL 1,000 ML IV SCH (17:16)
[2021-08-18] MEDS: MAGNESIUM OXIDE 400 MG TAB PO SCH (08:04)
[2021-08-18] MEDS: PANTOPRAZOLE 40 MG/10 ML VIAL IV SCH (08:04)
[2021-08-18] MEDS: diazePAM 5 MG TAB PO SCH (08:04)
[2021-08-18] MEDS: THIAMINE 100 MG TAB PO SCH (08:04)
[2021-08-18] MEDS: METOPROLOL TARTRATE 12.5 MG TAB PO SCH (08:04)
[2021-08-18] MEDS: DEXTROSE 5%-0.45% NACL 1,000 ML IV SCH (08:06)
[2021-08-18] MEDS: NICOTINE 7MG/24HR PATCH TRANSDERM SCH (08:07)
[2021-08-18 08:59] LABS: HCT 39.2 % (34.0-46.0); HGB 13.7 gm/dL (11.4-16.0); MCH 33.3 pg (25.0-35.0); MCV 94.9 fL (80.0-100.0); Mean Platelet Volume 7.9; Platelet Count 126 k/uL (150-450); RBC 4.13 m/uL (3.80-5.40); RDW 12.2 % (11.5-15.5); WBC 6.9 k/uL (3.8-10.6)
[2021-08-18 09:13] LABS: African American GFR (CKD) >90 (>60 ml/min/1.73 sqM); Anion Gap 7 mmol/L; Blood Urea Nitrogen 8 mg/dL (7-17); Calcium 8.8 mg/dL (8.4-10.2); Carbon Dioxide 26 mmol/L (22-30); Chloride 99 mmol/L (98-107); Glucose 106 mg/dL (74-99); Magnesium 1.5 mg/dL (1.6-2.3); Non-African American GFR(CKD) >90 (>60 ml/min/1.73 sqM); Potassium 3.7 mmol/L (3.5-5.1); Sodium 132 mmol/L (137-145)
[2021-08-18 12:11] VITALS: BP 136/82; PULSE 79; RESP 17; TEMP 97.4
--- NOTE | 2021-08-18 13:30 | P.PN ---
Subjective Progress Note Date: 08/18/21 CHIEF COMPLAINT: Hematemesis HISTORY OF PRESENT ILLNESS: Patient is status post EGD which revealed esopha gitis. Patient is tolerating diet. Denies any abdominal pain. Has had no further hematemesis. Afebrile. WBC 6.9 hemoglobin stable at 13.7 PHYSICAL EXAM: VITAL SIGNS: Reviewed. GENERAL: Well-developed in no acute distress. HEENT: No sclera icterus. Extraocular movements grossly intact. Moist buccal mucosa. Head is atraumatic, normocephalic. ABDOMEN: Soft. Nondistended. Nontender. NEUROLOGIC: Alert and oriented. Cranial nerves II through XII grossly intact. ASSESSMENT: 1. Hematemesis now resolved. Status post EGD revealing esophagitis. Patient may have had bleeding from her esophagitis. 2. History of chronic alcohol abuse PLAN: -Patient can be discharged from surgical standpoint -Continue PPI -Patient needs to work on alcohol cessation Physician Bottoming Machine Operator note has been reviewed by physician. Signing provider agrees with the documented findings, assessment, and plan of care. Objective - Vital Signs Vital signs: Vital Signs Temp 97.4 F L 08/18/21 12:11 Pulse 79 08/18/21 12:11 Resp 17 08/18/21 12:11 BP 136/82 08/18/21 12:11 Pulse Ox 98 08/18/21 12:11 Intake & Output 08/17/21 08/18/21 08/18/21 18:59 06:59 18:59 Intake Total 750 Balance 750 Weight 72.575 kg Intake: IV 150 Intake, IV Titration 600 Amount Dextrose 5% in Water 1, 600 000 ml @ 75 mls/hr IV . [id number] DANNI with Sodium Bicarb (1 Meq/ml) 150 ml Rx#:[id number] Other: Voiding Method Bedside Commode Toilet Toilet Diaper Diaper Diaper Incontinent Incontinent # Voids 1 4 - Labs CBC & Chem 7: 08/18/21 08:25 08/18/21 08:25 Labs: Abnormal Lab Results - Last 24 Hours (Table) 08/18/21 08/18/21 Range/Units 08:25 08:25 Plt Count 126 L (150-450) k/uL Sodium 132 L (137-145) mmol/L Creatinine 0.44 L (0.52-1.04) mg/dL Glucose 106 H (74-99) mg/dL Magnesium 1.5 L (1.6-2.3) mg/dL Microbiology - Last 24 Hours (Table) 08/15/21 23:40 Urine Culture - Final Urine,Voided Escherichia coli
--- NOTE | 2021-08-18 16:28 | P.DS ---
Providers Date of admission: 08/15/21 23:50 Expected date of discharge: 08/18/21 Attending physician: Oswaldo Rush Consults: 08/16/21 13:39 Consult Physician Routine Consulting Provider: Hong Matos Consult Reason/Comments: Vomiting blood Do you want consulting provider notified?: Yes Primary care physician: [facility] Course: Chief Complaint: Weak and tired History of presenting complaint: This is a 61-year-old patient . Initially admitted on 2019. following a fall for alcohol intoxication. found to have a spinal cord concussion and transferred out to [facility]. Patient did undergo surgery at [facility] was then in rehab. Did well subsequently. Patient subsequently has gone back on taking alcohol. Patient's had multiple admissions for alcohol intoxication. Patient continues to drink about couple pints of whiskey daily. Her also drinks beer at home. Does use a walker. Has not been eating well. Started having nausea vomiting yesterday. Did vomited blood at least 2 times. Has been eating much at home. Has upper abdominal pain. No fever no chills. Does not remember having black or dark stools or bloody stools. Feels weak diet. Last drink was day before. Alcohol level was 276 on presentation patient has received her COVID-19 vaccine. Also smokes a few cigarettes a day. August 17: Normal vomiting blood. Some epigastric discomfort. Pending EGD this afternoon. Tremors present. Anxious. August 18: EEG done yesterday showed gastritis and esophagitis. No further bleeding. Patient tolerated regular diet this morning. Patient counseled length about smoking and alcohol. Patient able to walk to bathroom. Does use a walker at home. Advised against about alcohol rehab. Patient declined Antabuse. Also didn't want to use naltrexone. Questions were answered. PPI. Nicotine patch. Discussion and discharge planning more than 35 minutes Consultation: Dr. Matos from GI Past medical history to include: Spinal cord concussion secondary to fall, chronic alcohol syndrome, chronic nicotine dependence, Social history: Lives with her ,'s drinks at least one-to pint of whiskey a day, smoking since 1997 Family history: Mother of melanoma Physical examination: VITAL SIGNS: 97.4, 79, 17, 136 with 82, 98% room air GENERAL: , laying in bed, comfortable EYES: Pupils equal. Conjunctiva normal. HEENT: External appearance of nose and ears normal, oral cavity grossly normal. NECK: JVD not raised; masses not palpable. HEART: First and second heart sounds are normal; no edema. LUNGS:[ Respiratory rate increased; decreased breath sounds, ABDOMEN: Soft, mildly epigastric tenderness, no guarding rigidity liver spleen not palpable, no masses palpable. PSYCH: Alert and oriented x3; mood and affect anxious. NEUROLOGICAL: Cranial nerves grossly intact; no facial asymmetry, power and sensation grossly intact. Tremors present INVESTIGATIONS, reviewed in the clinical context: August 18: White count 6.9 hemoglobin 13.7 platelets 126 potassium 3.7 sodium 132 magnesia 1.5 August 17: White count 6.3 hemoglobin 13.1 potassium 3.5 sodium 133 creatinine 0.5 magnesium 1.5 White count 11.3 hemoglobin 16.1 platelets 291 sodium 139 potassium 4.9 creatinine 0.64. Bicarbonate 9 Lactic acid 8.4 magnesia 1.5 Serum alcohol 276 Coronavirus [PCR]: Not detected Assessment and plan: -Hematemesis in a patient who is a chronic alcoholic. From gastritis/esophagitis, as per EGD PPI. No alcohol -Mild hyponatremia from excessive water intake. Follow closely -Acute alcohol intoxication, Watch for withdrawals -Severe metabolic acidosis from alcoholism: Better Sodium bicarbonate drip-discontinue -Alcohol withdrawal syndrome: Better Short course of Lopressor -Hypomagnesemia Magnesium oxide -Alcohol use disorder Counseled about the same -Chronic nicotine dependence, patient's cigarette smoker Nicotine patch -Alcoholic hepatitis Follow LFTs -Chronic left shoulder pain Pain controlled -Alcoholic myopathy, causing gait dysfunction Fall precautions. -Type II lactic acidosis: Corrected Hydrate patient Disposition: Home Plan - Discharge Summary Discharge Rx Participant: No New Discharge Prescriptions: New Nicotine 7Mg/24Hr Patch [Habitrol] 1 patch TRANSDERM DAILY #14 patch Pantoprazole [Protonix] 40 mg PO BID #60 tab Thiamine [Vitamin B-1] 100 mg PO BID-W/MEALS #30 tab Metoprolol Tartrate [Lopressor] 12.5 mg PO TID #15 tab Magnesium Oxide [Mag-Ox] 400 mg PO TID #20 tab Continue Fexofenadine HCl [Katarzyna Allergy] 180 mg PO DAILY PRN PRN Reason: Allergy Symptoms Discontinued Qifbdvy-Fvnr-Bicm [id number] [Excedrin] 2 tab PO Q4HR PRN PRN Reason: Migraine Headache Discharge Medication List Fexofenadine HCl [Katarzyna Allergy] 180 mg PO DAILY PRN 08/15/21 [History] Magnesium Oxide [Mag-Ox] 400 mg PO TID #20 tab 08/18/21 [Rx] Metoprolol Tartrate [Lopressor] 12.5 mg PO TID #15 tab 08/18/21 [Rx] Nicotine 7Mg/24Hr Patch [Habitrol] 1 patch TRANSDERM DAILY #14 patch 08/18/21 [Rx] Pantoprazole [Protonix] 40 mg PO BID #60 tab 08/18/21 [Rx] Thiamine [Vitamin B-1] 100 mg PO BID-W/MEALS #30 tab 08/18/21 [Rx] Follow up Appointment(s)/Referral(s): Danny Ogden DO [Primary Care Provider] - 1-2 days (The office will call you with a date and time.) Discharge Disposition: HOME SELF-CARE
== END 2021-08-18 15:08 | disposition home or self-care (01) | DRG 368 ==
LOC: EC 20:52 → OBSVTOIN 23:50 → 6NMEDSUR 23:50 → 5NMEDONC 08-16 02:27
PROVIDERS: ADMIT Hospitalist; ATTEND Hospitalist
PROC: 0DB68ZX Excision of Stomach, Via Natural or Artificial Opening Endoscopic, Diagnostic (ICD-10-PCS; principal; 2021-08-17 08:45)
PROC: 0DB98ZX Excision of Duodenum, Via Natural or Artificial Opening Endoscopic, Diagnostic (ICD-10-PCS; principal; 2021-08-17 08:45)
DX: K20.91 Esophagitis, unspecified with bleeding (principal); K29.71 Gastritis, unspecified, with bleeding; E87.1 Hypo-osmolality and hyponatremia; E87.2 Acidosis; G72.1 Alcoholic myopathy; F10.239 Alcohol dependence with withdrawal, unspecified; Z20.822 Contact with and (suspected) exposure to COVID-19; E83.42 Hypomagnesemia; F17.210 Nicotine dependence, cigarettes, uncomplicated; F32.9 Major depressive disorder, single episode, unspecified; F41.9 Anxiety disorder, unspecified; G89.29 Other chronic pain; M25.512 Pain in left shoulder; M54.50 Low back pain, unspecified; F10.229 Alcohol dependence with intoxication, unspecified; Y90.8 Blood alcohol level of 240 mg/100 ml or more; I10 Essential (primary) hypertension; K70.10 Alcoholic hepatitis without ascites; Z98.890 Other specified postprocedural states; Z71.41 Alcohol abuse counseling and surveillance of alcoholic; Z71.6 Tobacco abuse counseling; Z87.440 Personal history of urinary (tract) infections; Z86.010 Personal history of colon polyps; Z80.8 Family history of malignant neoplasm of other organs or systems; Z88.2 Allergy status to sulfonamides; Z91.041 Radiographic dye allergy status; Z91.013 Allergy to seafood
CPT/HCPCS: 36415; 43239; 80048; 80053; 80320; 81001; 82272; 83605; 83690; 83735; 84484; 85025; 85027; 85610; 85730; 86850; 86900; 86901; 87077; 87086; 87186; 87635; 88305; 93005; 96365; 96375; 99285

== ENCOUNTER 2021-09-11 22:40 | Emergency (ER) | payer BC, OTHER ==
[2021-09-11] MEDS ORDERED: ONDANSETRON ODT 4 MG TAB PO STA (23:17)
--- NOTE | 2021-09-12 00:30 | ED ---
General Adult HPI - General Source: patient, EMS, RN notes reviewed Mode of arrival: EMS Limitations: no limitations <Zaki Power - Last Filed: 09/12/21 00:29> <Kyrie Preciado - Last Filed: 09/12/21 07:08> - General Chief complaint: Nausea/Vomiting/Diarrhea Stated complaint: Anxiety - History of Present Illness Initial comments: This is a 61-year-old female presents emergency Department chief complaint of pain. Patient presents via EMS for this complaint. Patient denies any substernal himself. Patient states her anxiety has now resolved but states that she's had some nausea from this. Patient denies any chest pain palpitations headache dizziness. Patient offers no other complaints. (Zaki Power) - Related Data Home Medications Medication Instructions Recorded Confirmed Fexofenadine HCl [Katarzyna Allergy] 180 mg PO DAILY PRN 08/15/21 08/15/21 Previous Rx's Medication Instructions Recorded Magnesium Oxide [Mag-Ox] 400 mg PO TID #20 tab 08/18/21 Metoprolol Tartrate [Lopressor] 12.5 mg PO TID #15 tab 08/18/21 Nicotine 7Mg/24Hr Patch [Habitrol] 1 patch TRANSDERM DAILY #14 patch 08/18/21 Pantoprazole [Protonix] 40 mg PO BID #60 tab 08/18/21 Thiamine [Vitamin B-1] 100 mg PO BID-W/MEALS #30 tab 08/18/21 Cephalexin [Keflex] 500 mg PO Q6HR #28 cap 09/12/21 Allergies Allergy/AdvReac Type Severity Reaction Status Date / Time shellfish derived [Shellfish] Allergy Severe Dyspnea Verified 09/11/21 23:17 iodine Allergy Rash/Hives Verified 09/11/21 23:17 Sulfa (Sulfonamide Allergy Rash/Hives Verified 09/11/21 23:17 Antibiotics) Review of Systems ROS Other: All systems not noted in ROS Statement are negative. <Zaki Power - Last Filed: 09/12/21 00:29> ROS Other: All systems not noted in ROS Statement are negative. <Kyrie Preciado - Last Filed: 09/12/21 07:08> ROS Statement: Those systems with pertinent positive or pertinent negative responses have been documented in the HPI. 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 History of Any Multi-Drug Resistant Organisms: None Reported Past Surgical History: Back Surgery Additional Past Surgical History / Comment(s): Cervical surgery at [facility] d/t injury, colonoscopies/benign polypectomy Past Anesthesia/Blood Transfusion Reactions: No Reported Reaction, Motion Sickness Additional Past Anesthesia/Blood Transfusion Reaction / Comment(s): PT has clausterphobia. Past Psychological History: Anxiety, Depression Smoking Status: Current every day smoker Past Alcohol Use History: Abuse, Daily, Occasional Past Drug Use History: None Reported - Past Family History Mother Family Medical History: Cancer Additional Family Medical History / Comment(s): Mother of melanoma Father Family Medical History: No Reported History Additional Family Medical History / Comment(s): Father is healthy <Zaki Power - Last Filed: 09/12/21 00:29> General Exam Limitations: no limitations General appearance: alert, in no apparent distress Head exam: Present: atraumatic, normocephalic, normal inspection Eye exam: Present: normal appearance, PERRL, EOMI. Absent: scleral icterus, conjunctival injection, periorbital swelling ENT exam: Present: normal exam, normal oropharynx, mucous membranes moist Neck exam: Present: normal inspection. Absent: tenderness, meningismus, lymphadenopathy Respiratory exam: Present: normal lung sounds bilaterally. Absent: respiratory distress, wheezes, rales, rhonchi, stridor Cardiovascular Exam: Present: regular rate, normal rhythm, normal heart sounds. Absent: systolic murmur, diastolic murmur, rubs, gallop, clicks <Zaki Power - Last Filed: 09/12/21 00:29> Course Vital Signs 09/11/21 09/12/21 23:14 06:00 Temperature 97.5 F L 97.7 F Pulse Rate 96 92 Respiratory 16 20 Rate Blood Pressure 127/80 133/79 O2 Sat by Pulse 97 96 Oximetry Medical Decision Making - Lab Data Result diagrams: 09/12/21 03:54 09/12/21 03:54 <Kyrie Preciado - Last Filed: 09/12/21 07:08> - Lab Data Lab Results 09/12/21 09/12/21 09/12/21 Range/Units 03:54 03:54 03:54 WBC 15.7 H (3.8-10.6) k/uL RBC 4.79 (3.80-5.40) m/uL Hgb 15.7 (11.4-16.0) gm/dL Hct 47.6 H (34.0-46.0) % MCV 99.4 (80.0-100.0) fL MCH 32.9 (25.0-35.0) pg MCHC 33.1 (31.0-37.0) g/dL RDW 12.5 (11.5-15.5) % Plt Count 232 (150-450) k/uL MPV 7.1 Neutrophils % 86 % Lymphocytes % 11 % Monocytes % 2 % Eosinophils % 0 % Basophils % 1 % Neutrophils # 13.5 H (1.3-7.7) k/uL Lymphocytes # 1.7 (1.0-4.8) k/uL Monocytes # 0.4 (0-1.0) k/uL Eosinophils # 0.0 (0-0.7) k/uL Basophils # 0.1 (0-0.2) k/uL Sodium 137 (137-145) mmol/L Potassium 4.3 (3.5-5.1) mmol/L Chloride 98 (98-107) mmol/L Carbon Dioxide 17 L (22-30) mmol/L Anion Gap 22 mmol/L BUN 13 (7-17) mg/dL Creatinine 0.66 (0.52-1.04) mg/dL Est GFR (CKD-EPI)AfAm >90 (>60 ml/min/1.73 sqM) Est GFR (CKD-EPI)NonAf >90 (>60 ml/min/1.73 sqM) Glucose 87 (74-99) mg/dL Lactic Ac Sepsis Rflx Plasma Lactic Acid Samuel 4.4 H* (0.7-2.0) mmol/L Calcium 8.9 (8.4-10.2) mg/dL Total Bilirubin 0.7 (0.2-1.3) mg/dL AST 36 (14-36) U/L ALT 20 (4-34) U/L Alkaline Phosphatase 83 (38-126) U/L Troponin I (0.000-0.034) ng/mL Total Protein 8.6 H (6.3-8.2) g/dL Albumin 5.1 H (3.5-5.0) g/dL Amylase 93 (30-110) U/L Lipase 48 (23-300) U/L Urine Color Urine Appearance (Clear) Urine pH (5.0-8.0) Ur Specific Atkinson (1.001-1.035) Urine Protein (Negative) Urine Glucose (UA) (Negative) Urine Ketones (Negative) Urine Blood (Negative) Urine Nitrite (Negative) Urine Bilirubin (Negative) Urine Urobilinogen (<2.0) mg/dL Ur Leukocyte Esterase (Negative) Urine RBC (0-5) /hpf Urine WBC (0-5) /hpf Urine WBC Clumps (None) /hpf Ur Squamous Epith Cells (0-4) /hpf Urine Mucus (None) /hpf Serum Alcohol 195 mg/dL Coronavirus (PCR) (Not Detectd) 09/12/21 09/12/21 09/12/21 Range/Units 03:54 03:54 04:45 WBC (3.8-10.6) k/uL RBC (3.80-5.40) m/uL Hgb (11.4-16.0) gm/dL Hct (34.0-46.0) % MCV (80.0-100.0) fL MCH (25.0-35.0) pg MCHC (31.0-37.0) g/dL RDW (11.5-15.5) % Plt Count (150-450) k/uL MPV Neutrophils % % Lymphocytes % % Monocytes % % Eosinophils % % Basophils % % Neutrophils # (1.3-7.7) k/uL Lymphocytes # (1.0-4.8) k/uL Monocytes # (0-1.0) k/uL Eosinophils # (0-0.7) k/uL Basophils # (0-0.2) k/uL Sodium (137-145) mmol/L Potassium (3.5-5.1) mmol/L Chloride (98-107) mmol/L Carbon Dioxide (22-30) mmol/L Anion Gap mmol/L BUN (7-17) mg/dL Creatinine (0.52-1.04) mg/dL Est GFR (CKD-EPI)AfAm (>60 ml/min/1.73 sqM) Est GFR (CKD-EPI)NonAf (>60 ml/min/1.73 sqM) Glucose (74-99) mg/dL Lactic Ac Sepsis Rflx Y Plasma Lactic Acid Samuel (0.7-2.0) mmol/L Calcium (8.4-10.2) mg/dL Total Bilirubin (0.2-1.3) mg/dL AST (14-36) U/L ALT (4-34) U/L Alkaline Phosphatase (38-126) U/L Troponin I <0.012 (0.000-0.034) ng/mL Total Protein (6.3-8.2) g/dL Albumin (3.5-5.0) g/dL Amylase (30-110) U/L Lipase (23-300) U/L Urine Color Urine Appearance (Clear) Urine pH (5.0-8.0) Ur Specific Atkinson (1.001-1.035) Urine Protein (Negative) Urine Glucose (UA) (Negative) Urine Ketones (Negative) Urine Blood (Negative) Urine Nitrite (Negative) Urine Bilirubin (Negative) Urine Urobilinogen (<2.0) mg/dL Ur Leukocyte Esterase (Negative) Urine RBC (0-5) /hpf Urine WBC (0-5) /hpf Urine WBC Clumps (None) /hpf Ur Squamous Epith Cells (0-4) /hpf Urine Mucus (None) /hpf Serum Alcohol mg/dL Coronavirus (PCR) Not Detected (Not Detectd) 09/12/21 Range/Units 06:20 WBC (3.8-10.6) k/uL RBC (3.80-5.40) m/uL Hgb (11.4-16.0) gm/dL Hct (34.0-46.0) % MCV (80.0-100.0) fL MCH (25.0-35.0) pg MCHC (31.0-37.0) g/dL RDW (11.5-15.5) % Plt Count (150-450) k/uL MPV Neutrophils % % Lymphocytes % % Monocytes % % Eosinophils % % Basophils % % Neutrophils # (1.3-7.7) k/uL Lymphocytes # (1.0-4.8) k/uL Monocytes # (0-1.0) k/uL Eosinophils # (0-0.7) k/uL Basophils # (0-0.2) k/uL Sodium (137-145) mmol/L Potassium (3.5-5.1) mmol/L Chloride (98-107) mmol/L Carbon Dioxide (22-30) mmol/L Anion Gap mmol/L BUN (7-17) mg/dL Creatinine (0.52-1.04) mg/dL Est GFR (CKD-EPI)AfAm (>60 ml/min/1.73 sqM) Est GFR (CKD-EPI)NonAf (>60 ml/min/1.73 sqM) Glucose (74-99) mg/dL Lactic Ac Sepsis Rflx Plasma Lactic Acid Samuel (0.7-2.0) mmol/L Calcium (8.4-10.2) mg/dL Total Bilirubin (0.2-1.3) mg/dL AST (14-36) U/L ALT (4-34) U/L Alkaline Phosphatase (38-126) U/L Troponin I (0.000-0.034) ng/mL Total Protein (6.3-8.2) g/dL Albumin (3.5-5.0) g/dL Amylase (30-110) U/L Lipase (23-300) U/L Urine Color Yellow Urine Appearance Cloudy H (Clear) Urine pH 5.5 (5.0-8.0) Ur Specific Atkinson 1.020 (1.001-1.035) Urine Protein 2+ H (Negative) Urine Glucose (UA) Negative (Negative) Urine Ketones 2+ H (Negative) Urine Blood Large H (Negative) Urine Nitrite Negative (Negative) Urine Bilirubin Negative (Negative) Urine Urobilinogen <2.0 (<2.0) mg/dL Ur Leukocyte Esterase Large H (Negative) Urine RBC >182 H (0-5) /hpf Urine WBC >182 H (0-5) /hpf Urine WBC Clumps Few H (None) /hpf Ur Squamous Epith Cells <1 (0-4) /hpf Urine Mucus Occasional H (None) /hpf Serum Alcohol mg/dL Coronavirus (PCR) (Not Detectd) Disposition <Zaki Power - Last Filed: 09/12/21 00:29> Is patient prescribed a controlled substance at d/c from ED?: No <Kyrie Preciado - Last Filed: 09/12/21 07:08> Clinical Impression: Alcohol intoxication, Urinary tract infection Disposition: HOME SELF-CARE Condition: Good Instructions (If sedation given, give patient instructions): Urinary Tract Infection in Women (ED), Alcohol Intoxication (ED) Prescriptions: Cephalexin [Keflex] 500 mg PO Q6HR #28 cap Referrals: Danny Ogden DO [Primary Care Provider] - 1-2 days
[2021-09-12] MEDS ORDERED: ONDANSETRON 4 MG/2 ML VIAL IVP STA (03:35)
[2021-09-12] MEDS ORDERED: LORazepam 2 MG/ML INJ IV STA ×2 (03:35→06:08)
[2021-09-12] MEDS ORDERED: SODIUM CHLORIDE 0.9% 500 ML 500 ML IV STA (04:00)
[2021-09-12 04:21] LABS: Basophils # (A) 0.1 k/uL (0-0.2); Basophils % (A) 1 %; Eosinophils % (A) 0 %; HCT 47.6 % (34.0-46.0); HGB 15.7 gm/dL (11.4-16.0); Lymphocytes # (A) 1.7 k/uL (1.0-4.8); Lymphocytes % (A) 11 %; MCH 32.9 pg (25.0-35.0); MCHC 33.1 g/dL (31.0-37.0); MCV 99.4 fL (80.0-100.0); Mean Platelet Volume 7.1; Monocytes # (A) 0.4 k/uL (0-1.0); Monocytes % (A) 2 %; Neutrophils # (A) 13.5 k/uL (1.3-7.7); Neutrophils % (A) 86 %; Platelet Count 232 k/uL (150-450); RBC 4.79 m/uL (3.80-5.40); RDW 12.5 % (11.5-15.5); WBC 15.7 k/uL (3.8-10.6)
[2021-09-12 04:33] LABS: ALT 20 U/L (4-34); AST 36 U/L (14-36); African American GFR (CKD) >90 (>60 ml/min/1.73 sqM); Albumin 5.1 g/dL (3.5-5.0); Alkaline Phosphatase 83 U/L (38-126); Amylase 93 U/L (30-110); Anion Gap 22 mmol/L; Blood Urea Nitrogen 13 mg/dL (7-17); Calcium 8.9 mg/dL (8.4-10.2); Carbon Dioxide 17 mmol/L (22-30); Chloride 98 mmol/L (98-107); Glucose 87 mg/dL (74-99); Lipase 48 U/L (23-300); Non-African American GFR(CKD) >90 (>60 ml/min/1.73 sqM); Potassium 4.3 mmol/L (3.5-5.1); Sodium 137 mmol/L (137-145); Total Bilirubin 0.7 mg/dL (0.2-1.3); Total Protein 8.6 g/dL (6.3-8.2)
[2021-09-12 04:46] LABS: Alcohol 195 mg/dL
--- NOTE | 2021-09-12 04:46 | CT ---
EXAMINATION TYPE: CT abdomen pelvis wo con DATE OF EXAM: 09/12/2021 COMPARISON: 07/08/2021 HISTORY: Abd, pain CT DLP: 572.9 mGycm Automated exposure control for dose reduction was used. Images obtained from the diaphragm to the floor of the pelvis without contrast. Lung bases are clear. There is no pleural effusion. Heart size is normal. There is no pericardial eff usion. There is some fatty infiltration of the liver. There is no focal liver defect. Spleen is intac t. Stomach and pancreas appear intact. The bile ducts are not dilated. Gallbladder appears normal. There is no adrenal mass. Kidneys have normal size. There is no hydronephrosis. There is no retroperi toneal adenopathy. Ureters are not dilated. Bladder distends smoothly. There is no inguinal hernia. There is no evidence of a pelvic mass. There is no free fluid in the pelvis. There is no mesenteric edema. There is no ascites or free air. Appendix is posterior and appears norm al. There are some sigmoid diverticula. There is no diverticulitis. The lumbar vertebra abnormal alignment. There is degenerative disc space narrowing at L4-5. There is no compression fracture. Bony pelvis appears intact. The hip joints are intact. IMPRESSION: There is some fatty infiltration of the liver. Normal appendix. No acute abnormality of the abdomen a nd pelvis. No adverse change compared to old exam.
[2021-09-12] MEDS ORDERED: SODIUM CHLORIDE 0.9% 1,000 ML IV ONE (06:08)
[2021-09-12 06:29] LABS: Appearance,Urine Cloudy (Clear); Bilirubin,Urine Negative (Negative); Blood,Urine Large (Negative); Color,Urine Yellow; Glucose,Urine (UA) Negative (Negative); Ketones,Urine 2+ (Negative); Leukocyte Esterase,Urine Large (Negative); Mucus,Urine Occasional /hpf; Nitrite,Urine Negative (Negative); PH, Urine 5.5 (5.0-8.0); Protein,Urine 2+ (Negative); RBC,Urine >182 /hpf (0-5); Squamous Epithelial Cell,Urine <1 /hpf (0-4); Urobilinogen,Urine <2.0 mg/dL (<2.0); WBC,Urine >182 /hpf (0-5)
[2021-09-12 06:54] VITALS: TEMP 97.7
[2021-09-12 07:49] VITALS: BP 149/89; PULSE 87; RESP 18
[2021-09-12] MEDS ORDERED: cloNIDine HCL 0.1 MG TAB PO STA (08:33)
== END 2021-09-12 08:55 | disposition home or self-care (01) ==
LOC: EC 22:40
DX: F10.129 Alcohol abuse with intoxication, unspecified (principal); N39.0 Urinary tract infection, site not specified; I10 Essential (primary) hypertension; M19.90 Unspecified osteoarthritis, unspecified site; F32.A Depression, unspecified; F41.9 Anxiety disorder, unspecified; F17.200 Nicotine dependence, unspecified, uncomplicated; Z88.2 Allergy status to sulfonamides; Z87.440 Personal history of urinary (tract) infections; Y90.6 Blood alcohol level of 120-199 mg/100 ml
CPT/HCPCS: 99284; 96365; 96375 ×2; 96376; 96361 ×3; 36415; 80053; 82150; 83605; 83690; 84484; 85025; 81001; 80320; 87086; 87077; 87186; 87635; 74176; J2060; J2405; J0696

== ENCOUNTER 2022-04-11 02:25 | Inpatient (IN) | payer MEDICARE, OTHER ==
[2022-04-11] MEDS ORDERED: SODIUM CHLORIDE 0.9% 1,000 ML IV STA (02:28)
--- NOTE | 2022-04-11 02:29 | ED ---
Chest Pain HPI - General Stated Complaint: Chest Pain, palpitations, Left arm injury Time Seen by Provider: 04/11/22 02:28 - Related Data Home Medications Medication Instructions Recorded Confirmed Fexofenadine HCl [Katarzyna Allergy] 180 mg PO DAILY PRN 08/15/21 08/15/21 Previous Rx's Medication Instructions Recorded Magnesium Oxide [Mag-Ox] 400 mg PO TID #20 tab 08/18/21 Metoprolol Tartrate [Lopressor] 12.5 mg PO TID #15 tab 08/18/21 Nicotine 7Mg/24Hr Patch [Habitrol] 1 patch TRANSDERM DAILY #14 patch 08/18/21 Pantoprazole [Protonix] 40 mg PO BID #60 tab 08/18/21 Thiamine [Vitamin B-1] 100 mg PO BID-W/MEALS #30 tab 08/18/21 Cephalexin [Keflex] 500 mg PO Q6HR #28 cap 09/12/21 Allergies Allergy/AdvReac Type Severity Reaction Status Date / Time shellfish derived [Shellfish] Allergy Severe Dyspnea Verified 09/11/21 23:17 iodine Allergy Rash/Hives Verified 09/11/21 23:17 Sulfa (Sulfonamide Allergy Rash/Hives Verified 09/11/21 23:17 Antibiotics) Review of Systems ROS Statement: Those systems with pertinent positive or pertinent negative responses have been documented in the HPI. ROS Other: All systems not noted in ROS Statement are negative. 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 History of Any Multi-Drug Resistant Organisms: None Reported Past Surgical History: Back Surgery Additional Past Surgical History / Comment(s): Cervical surgery at [facility] d/t injury, colonoscopies/benign polypectomy Past Anesthesia/Blood Transfusion Reactions: No Reported Reaction, Motion Sickness Additional Past Anesthesia/Blood Transfusion Reaction / Comment(s): PT has clausterphobia. Past Psychological History: Anxiety, Depression Smoking Status: Current every day smoker Past Alcohol Use History: Abuse, Daily, Occasional Past Drug Use History: None Reported - Past Family History Mother Family Medical History: Cancer Additional Family Medical History / Comment(s): Mother of melanoma Father Family Medical History: No Reported History Additional Family Medical History / Comment(s): Father is healthy Course Vital Signs 04/11/22 02:33 Temperature 99.8 F H Pulse Rate 107 H Respiratory 18 Rate Blood Pressure 136/97 O2 Sat by Pulse 98 Oximetry Disposition Clinical Impression: Alcohol intoxication, Chest pain, Alcoholic ketoacidosis Disposition: ADMITTED IP TO THIS HOSP Condition: Undetermined Is patient prescribed a controlled substance at d/c from ED?: No Referrals: Danny Ogden DO [Primary Care Provider] - 1-2 days
[2022-04-11 03:01] LABS: Basophils % (A) 0 %; Eosinophils # (A) 0.2 k/uL (0-0.7); Eosinophils % (A) 3 %; HCT 39.8 % (34.0-46.0); HGB 13.2 gm/dL (11.4-16.0); Lymphocytes # (A) 1.9 k/uL (1.0-4.8); Lymphocytes % (A) 27 %; MCH 31.4 pg (25.0-35.0); MCHC 33.3 g/dL (31.0-37.0); MCV 94.4 fL (80.0-100.0); Mean Platelet Volume 8.1; Monocytes # (A) 0.3 k/uL (0-1.0); Monocytes % (A) 4 %; Neutrophils # (A) 4.4 k/uL (1.3-7.7); Neutrophils % (A) 63 %; Platelet Count 106 k/uL (150-450); RBC 4.21 m/uL (3.80-5.40); WBC 6.9 k/uL (3.8-10.6)
[2022-04-11 03:09] LABS: INR 0.9 (<1.2); Prothrombin Time 9.6 sec (9.0-12.0)
--- NOTE | 2022-04-11 03:09 | XR ---
EXAMINATION TYPE: XR chest 1V portable DATE OF EXAM: 04/11/2022 COMPARISON: 11/26/2010 HISTORY: Chest pain TECHNIQUE: FINDINGS: There are some increased interstitial density at the lung bases bilaterally heart size is n ormal. There are no hilar masses. Costophrenic angles are clear. Bony thorax is intact. IMPRESSION: Increased basilar pulmonary interstitial density compared to old exam. No heart failure. Normal heart.
[2022-04-11 03:10] LABS: Partial Thromboplastin Time 23.3 sec (22.0-30.0)
[2022-04-11 03:17] LABS: ALT 27 U/L (4-34); AST 47 U/L (14-36); African American GFR (CKD) >90 (>60 ml/min/1.73 sqM); Albumin 4.5 g/dL (3.5-5.0); Alkaline Phosphatase 77 U/L (38-126); Anion Gap 20 mmol/L; Blood Urea Nitrogen 10 mg/dL (7-17); Calcium 8.5 mg/dL (8.4-10.2); Carbon Dioxide 15 mmol/L (22-30); Chloride 99 mmol/L (98-107); Glucose 97 mg/dL (74-99); Lipase 85 U/L (23-300); Magnesium 1.4 mg/dL (1.6-2.3); Non-African American GFR(CKD) >90 (>60 ml/min/1.73 sqM); Potassium 3.9 mmol/L (3.5-5.1); Sodium 134 mmol/L (137-145); Total Bilirubin 0.5 mg/dL (0.2-1.3); Total Protein 7.3 g/dL (6.3-8.2)
[2022-04-11 03:41] LABS: Alcohol 285 mg/dL
[2022-04-11] MEDS ORDERED: ASPIRIN 81 MG PO STA (03:48)
[2022-04-11] MEDS ORDERED: THIAMINE 100 MG/ML 2 ML VIAL IM STA (03:48)
[2022-04-11] MEDS ORDERED: NITROGLYCERIN SL TABS 0.4 MG TAB SUBLINGUAL PRN (03:48)
[2022-04-11] MEDS ORDERED: MORPHINE SULFATE 4 MG/ML SYRINGE IVP STA (03:48)
[2022-04-11] MEDS ORDERED: LORazepam 2 MG/ML INJ IV PRN ×2 (03:48)
[2022-04-11] MEDS: MAGNESIUM SULFATE-D5W PMX 1 GM in DEXTROSE/WATER 1 100ML.BAG IVPB SCH ×2 (04:14→05:11)
[2022-04-11] MEDS: MORPHINE SULFATE 4 MG/ML SYRINGE IV PRN ×2 (05:24→10:23)
[2022-04-11] MEDS: LORazepam 2 MG/ML INJ IV PRN ×5 (08:42→21:24)
[2022-04-11] MEDS: ATORVASTATIN 80 MG TAB PO SCH (08:42)
[2022-04-11] MEDS: NICOTINE 14MG/24HR PATCH TRANSDERM SCH (14:42)
[2022-04-11] MEDS: ENOXAPARIN 40 MG/0.4 ML SYRINGE SQ SCH (14:42)
[2022-04-11] MEDS: diazePAM 5 MG TAB PO SCH ×2 (14:42→20:16)
--- NOTE | 2022-04-11 14:42 | P.CRDCN ---
History of Present Illness History of present illness: HISTORY OF PRESENTING ILLNESS Patient is a pleasant 62-year-old female with history of previous neck injury requiring cervical surgery, alcohol abuse who presents secondary chest pain. Patient states normally she has been doing fairly well however over the last 2-3 days she has been having chest pressure associated with some diaphoresis and palpitations which can be worse if she is doing things and improved with rest. She denies any prior similar episodes. She denies any changes in medications and does not take any medications. She was found have elevated alcohol 285. EKG shows normal sinus rhythm, incomplete right bundle branch block with no significant ST or T wave abnormalities. Troponin normal 3, magnesium 1.4, proBNP 25. REVIEW OF SYSTEMS At the time of my exam: CONSTITUTIONAL: Denies fever or chills. CARDIOVASCULAR: +chest pain, +associated shortness of breath, no orthopnea, PND, +palpitations. RESPIRATORY: Denies cough. GASTROINTESTINAL: Denies abdominal pain, diarrhea, constipation, nausea or vomiting. MUSCULOSKELETAL: Denies myalgias. NEUROLOGIC: Denies numbness, tingling or weakness. ENDOCRINE: Denies fatigue, weight change, polydipsia or polyurina. GENITOURINARY: Denies burning, hematuria or urgency with micturation. HEMATOLOGIC: Denies history of anemia or bleeding. PHYSICAL EXAMINATION Vital signs reviewed. CONSTITUTIONAL: No apparent distress. HEENT: Head is normocephalic. Pupils are equal, round. Sclerae anicteric. Mucous membranes of the mouth are moist. No JVD. No carotid bruit. CHEST EXAMINATION: Lungs are clear to auscultation. No chest wall tenderness is noted on palpation or with deep breathing. HEART EXAMINATION: Regular rate and rhythm. S1, S2 heard. No murmurs, gallops or rub. ABDOMEN: Soft, nontender. Positive bowel sounds. EXTREMITIES: 2+ peripheral pulses, no lower extremity edema and no calf tenderness. NEUROLOGIC EXAMINATION: Patient is awake, alert and oriented x3. ASSESSMENT 1. Atypical chest pain however some typical features 2. Alcohol abuse 3. Hypomagnesemia PLAN Patient's chest pain overall is somewhat atypical however some typical features and therefore discussed recommendations for stress testing. Patient is agreeable. She cannot walk on a treadmill. We will check Lexiscan stress test as well as echo. If both are normal patient may discharged home from a cardiology standpoint. ETOH cessation. 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 History of Any Multi-Drug Resistant Organisms: None Reported Past Surgical History: Back Surgery Additional Past Surgical History / Comment(s): Cervical surgery at [facility] d/t injury, colonoscopies/benign polypectomy Past Anesthesia/Blood Transfusion Reactions: No Reported Reaction, Motion Sickness Additional Past Anesthesia/Blood Transfusion Reaction / Comment(s): PT has clausterphobia. Past Psychological History: Anxiety, Depression Additional Psychological History / Comment(s): Pt resides with her spouse. She is independent. Smoking Status: Current every day smoker Past Alcohol Use History: Abuse, Daily, Occasional Additional Past Alcohol Use History / Comment(s): Pt started smoking in 1997 and a pack will last 4 days. Pt drinks on average a pint of whiskey per day-she has quit several times and once quit for 5 yrs. Past Drug Use History: None Reported - Past Family History Mother Family Medical History: Cancer Additional Family Medical History / Comment(s): Mother of melanoma Father Family Medical History: No Reported History Additional Family Medical History / Comment(s): Father is healthy Medications and Allergies Home Medications Medication Instructions Recorded Confirmed Type No Known Home Medications 04/11/22 04/11/22 History Allergies Allergy/AdvReac Type Severity Reaction Status Date / Time shellfish derived [Shellfish] Allergy Severe Dyspnea Verified 04/11/22 11:59 iodine Allergy Rash/Hives Verified 04/11/22 11:59 Sulfa (Sulfonamide Allergy Rash/Hives Verified 04/11/22 11:59 Antibiotics) Physical Exam Vitals: Vital Signs Temp Pulse Pulse Resp BP BP Pulse Ox 04/11/22 12:10 98.2 F 89 17 128/71 96 04/11/22 08:00 98.2 F 89 17 131/85 97 04/11/22 05:03 96 04/11/22 04:48 99.2 F 83 18 139/76 96 04/11/22 04:23 98.1 F 04/11/22 04:20 94 18 130/87 97 04/11/22 02:33 99.8 F H 107 H 18 136/97 98 Intake and Output 04/10/22 04/11/22 04/11/22 22:59 06:59 14:59 Intake Total 320 500 Balance 320 500 Intake: Intake, IV Titration 200 Amount Magnesium Sulfate-D5w Pmx 200 1 gm In Dextrose/Water 1 100ml.bag @ 100 mls/hr IVPB Q1H [facility] Rx#: [id number] Oral 120 500 Other: Voiding Method Toilet # Voids 1 Weight 72.575 kg Results 04/11/22 02:51 04/11/22 02:51 Cardiac Enzymes 04/11/22 04/11/22 04/11/22 Range/Units 02:51 02:51 05:26 AST 47 H (14-36) U/L Troponin I <0.012 <0.012 (0.000-0.034) ng/mL 04/11/22 Range/Units 06:43 AST (14-36) U/L Troponin I <0.012 (0.000-0.034) ng/mL Coagulation 04/11/22 Range/Units 02:51 PT 9.6 (9.0-12.0) sec APTT 23.3 (22.0-30.0) sec CBC 04/11/22 Range/Units 02:51 WBC 6.9 (3.8-10.6) k/uL RBC 4.21 (3.80-5.40) m/uL Hgb 13.2 (11.4-16.0) gm/dL Hct 39.8 (34.0-46.0) % Plt Count 106 L (150-450) k/uL Comprehensive Metabolic Panel 04/11/22 Range/Units 02:51 Sodium 134 L (137-145) mmol/L Potassium 3.9 (3.5-5.1) mmol/L Chloride 99 (98-107) mmol/L Carbon Dioxide 15 L (22-30) mmol/L BUN 10 (7-17) mg/dL Creatinine 0.40 L (0.52-1.04) mg/dL Glucose 97 (74-99) mg/dL Calcium 8.5 (8.4-10.2) mg/dL AST 47 H (14-36) U/L ALT 27 (4-34) U/L Alkaline Phosphatase 77 (38-126) U/L Total Protein 7.3 (6.3-8.2) g/dL Albumin 4.5 (3.5-5.0) g/dL Current Medications Generic Name Dose Route Start Last Admin Trade Name Freq PRN Reason Stop Dose Admin Aspirin 325 mg 04/12/22 10:00 Aspirin 325 Mg Tab PO DAILY [facility] Atorvastatin Calcium 80 mg 04/11/22 09:00 04/11/22 08:42 Atorvastatin 80 Mg Tab PO 80 mg DAILY DANNI Administration Diazepam 5 mg 04/11/22 16:00 Diazepam 5 Mg Tab PO TID [facility] Enoxaparin Sodium 40 mg 04/11/22 13:30 Enoxaparin 40 Mg/0.4 Ml Syringe SQ DAILY [facility] Lorazepam 1 mg 04/11/22 03:48 04/11/22 12:11 Lorazepam 2 Mg/Ml Inj IV 1 mg Q2HR PRN Administration CIWA 8 or 9 Lorazepam 1 mg 04/11/22 03:48 Lorazepam 2 Mg/Ml Inj IV Q1HR PRN CIWA 10 to 15 Lorazepam 2 mg 04/11/22 03:48 Lorazepam 2 Mg/Ml Inj IV 04/13/22 03:48 Q10M PRN CIWA 16 or higher Nicotine 1 patch 04/11/22 13:30 Nicotine 14mg/24hr Patch TRANSDERM DAILY [facility] Nitroglycerin 0.4 mg 04/11/22 03:48 Nitroglycerin Sl Tabs 0.4 Mg Tab SUBLINGUAL Q5M PRN Chest Pain Thiamine HCl 100 mg 04/11/22 17:30 Thiamine 100 Mg Tab PO BID-W/MEALS [facility] Intake and Output 04/10/22 04/11/22 04/11/22 22:59 06:59 14:59 Intake Total 320 500 Balance 320 500 Intake: Intake, IV Titration 200 Amount Magnesium Sulfate-D5w Pmx 200 1 gm In Dextrose/Water 1 100ml.bag @ 100 mls/hr IVPB Q1H [facility] Rx#: [id number] Oral 120 500 Other: Voiding Method Toilet # Voids 1 Weight 72.575 kg 04/11/22 02:51 04/11/22 02:51
[2022-04-11] MEDS: THIAMINE 100 MG TAB PO SCH (16:26)
--- NOTE | 2022-04-11 17:33 | P.HPIM ---
History of Present Illness H&P Date: 04/11/22 Chief Complaint: Chest pain History of presenting complaint: This is a 62-year-old patient, follows with Dr. Ogden . Previously 2019. following a fall for alcohol intoxication. found to have a spinal cord concussion and transferred out to [facility]. Patient did undergo surgery at [facility] was then in rehab. Did well subsequently. Patient subsequently has gone back on taking alcohol. Patient's had multiple admissions for alcohol intoxication. Chronic stable conditions include gastritis, esophagitis, alcohol use disorder, alcoholic myopathy Patient now presents with anterior chest wall pain going to her left shoulder. Doesn't feel about 2 days. Intermittent. Some shortness of breath. Present at rest. No aggravating or relieving factors. Patient continued to drink alcohol and also smoke half a pack a day. Patient not very active. Does use a walker. Takes about a pint a day. Last drink 2 days ago. Review of systems: GEN.: Tired EYES: None HEENT: None NECK: None RESPIRATORY: baseline shortness of breath CARDIOVASCULAR: None GASTROINTESTINAL: As above GENITOURINARY: None MUSCULOSKELETAL: Chronic joint pains, muscle weakness LYMPHATICS: None HEMATOLOGICAL: As above PSYCHIATRY: Anxious NEUROLOGICAL: Tremors. Does use a walker. Past medical history to include: Spinal cord concussion secondary to fall, alcohol use disorder, chronic nicotine dependence, gastritis, esophagitis, alcoholic myopathy Social history: Lives with her ,'s drinks at least one-to pint of whiskey a day, smoking since 1997 Family history: Mother of melanoma Physical examination: VITAL SIGNS: 98.2, 89, 17, 128 by a 71, 96% room air GENERAL: BMI 23.6, laying in bed, tired EYES: Pupils equal. Conjunctiva normal. HEENT: External appearance of nose and ears normal, oral cavity grossly normal. NECK: JVD not raised; masses not palpable. HEART: First and second heart sounds are normal; no edema. LUNGS:[ Respiratory rate increased; decreased breath sounds, ABDOMEN: Soft, mildly epigastric tenderness, no guarding rigidity liver spleen not palpable, no masses palpable. PSYCH: Alert and oriented x3; mood and affect anxious. NEUROLOGICAL: Cranial nerves grossly intact; no facial asymmetry, power and sensation grossly intact. Tremors present LYMPHATICS: No lymph nodes palpable in the axilla and neck. INVESTIGATIONS, reviewed in the clinical context: White count 6.9 hemoglobin 13.2 platelets 106 potassium 3.9 creatinine 0.4 magnesia 1.4 AST 47 Troponin I 3 negative serum alcohol 256 EKG tracing personally reviewed by me-normal sinus rhythm. Chest x-ray film personally reviewed by me-possible chronic changes Assessment and plan: -Anterior chest wall pain. Consider unstable angina. Cardiac risk factors include smoking, sedentary Negative troponin. Will need a probably a stress test -Chronic gastritis/esophagitis, from alcoholism PPI. -Mild hyponatremia from excessive water intake. Follow closely -Acute alcohol intoxication, Watch for withdrawals -metabolic acidosis from alcoholism: Sodium bicarbonate -Alcohol withdrawal syndrome: Valium 5 mg every 8. CIWA scale -Hypomagnesemia Magnesium oxide -Alcohol use disorder Will counselor/art therapist - -Chronic nicotine dependence, patient's cigarette smoker Nicotine patch -Alcoholic hepatitis Follow LFTs -Chronic left shoulder pain Pain controlled -Alcoholic myopathy, causing gait dysfunction Fall precautions. 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 Uses a walker Consent cardiology. Continue home medications. CIWA scale. Valium. Home medications. Replace magnesium. Fall precautions. Telemetry Smoke cessation counseling: This was done with the patient. Nicotine patch is being given. More than 3 minutes was spent for this Past Medical History Past Medical History: Hypertension, Osteoarthritis (OA) Additional Past Medical History / Comment(s): Fall September 2019 with neck injury/L arm weak/decreased sensation and weakness to L leg-sent to [facility] and had cervical surgery, chronic cervical/L shoulder pain since surgery, chronic low back pain for years, ETOH abuse-pt states she has had withdrawals/shaking/weakness/nausea/one seizure long ago, alcoholic hepatitis, 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 History of Any Multi-Drug Resistant Organisms: None Reported Past Surgical History: Back Surgery Additional Past Surgical History / Comment(s): Cervical surgery at [facility] d/t injury, colonoscopies/benign polypectomy Past Anesthesia/Blood Transfusion Reactions: No Reported Reaction, Motion Sickness Additional Past Anesthesia/Blood Transfusion Reaction / Comment(s): PT has clausterphobia. Past Psychological History: Anxiety, Depression Additional Psychological History / Comment(s): Pt resides with her spouse. She is independent. Smoking Status: Current every day smoker Past Alcohol Use History: Abuse, Daily, Occasional Additional Past Alcohol Use History / Comment(s): Pt started smoking in 1997 and a pack will last 4 days. Pt drinks on average a pint of whiskey per day-she garcia s quit several times and once quit for 5 yrs. Past Drug Use History: None Reported - Past Family History Mother Family Medical History: Cancer Additional Family Medical History / Comment(s): Mother of melanoma Father Family Medical History: No Reported History Additional Family Medical History / Comment(s): Father is healthy Medications and Allergies Home Medications Medication Instructions Recorded Confirmed Type No Known Home Medications 04/11/22 04/11/22 History Allergies Allergy/AdvReac Type Severity Reaction Status Date / Time shellfish derived [Shellfish] Allergy Severe Dyspnea Verified 04/11/22 11:59 iodine Allergy Rash/Hives Verified 04/11/22 11:59 Sulfa (Sulfonamide Allergy Rash/Hives Verified 04/11/22 11:59 Antibiotics) Physical Exam Vitals: Vital Signs Temp Pulse Pulse Resp BP BP Pulse Ox 04/11/22 08:00 98.2 F 83 17 131/85 97 04/11/22 05:03 96 04/11/22 04:48 99.2 F 83 18 139/76 96 04/11/22 04:23 98.1 F 04/11/22 04:20 94 18 130/87 97 04/11/22 02:33 99.8 F H 107 H 18 136/97 98 Intake and Output 04/10/22 04/11/22 04/11/22 22:59 06:59 14:59 Intake Total 320 500 Balance 320 500 Intake: Intake, IV Titration 200 Amount Magnesium Sulfate-D5w Pmx 200 1 gm In Dextrose/Water 1 100ml.bag @ 100 mls/hr IVPB Q[facility]H [facility] Rx#: [id number] Oral 120 500 Other: # Voids 1 Weight 72.575 kg Results CBC & Chem 7: 04/11/22 02:51 04/11/22 02:51 Labs: Abnormal Lab Results - Last 24 Hours (Table) 04/11/22 04/11/22 Range/Units 02:51 02:51 Plt Count 106 L (150-450) k/uL Sodium 134 L (137-145) mmol/L Carbon Dioxide 15 L (22-30) mmol/L Creatinine 0.40 L (0.52-1.04) mg/dL Magnesium 1.4 L (1.6-2.3) mg/dL AST 47 H (14-36) U/L Serum Alcohol 285 H* mg/dL Thrombosis Risk Factor Assmnt - Choose All That Apply Each Risk Factor Represents 2 Points: Age 61-74 years Other congenital or acquired thrombophilia - If yes, enter type in comment: No Thrombosis Risk Factor Assessment Total Risk Factor Score: 2 Thrombosis Risk Factor Assessment Level: Low Risk
[2022-04-11] MEDS: MAGNESIUM OXIDE 400 MG TAB PO SCH (18:52)
[2022-04-11] MEDS: SODIUM BICARBONATE TAB 650 MG TAB PO SCH ×2 (18:52→21:25)
[2022-04-12] MEDS: LORazepam 2 MG/ML INJ IV PRN ×6 (01:39→23:17)
[2022-04-12] MEDS ORDERED: CAFFEINE CITRATE 60 MG/3 ML VIAL IV PRN (06:00)
[2022-04-12] MEDS ORDERED: AMINOPHYLLINE 500 MG/20 ML VIAL IV PRN (06:00)
[2022-04-12] MEDS ORDERED: REGADENOSON 0.4 MG/5 ML SYRINGE IV PRN (06:00)
[2022-04-12] MEDS: THIAMINE 100 MG TAB PO SCH ×3 (06:45→11:57)
[2022-04-12 08:04] LABS: African American GFR (CKD) >90 (>60 ml/min/1.73 sqM); Anion Gap 4 mmol/L; Blood Urea Nitrogen 10 mg/dL (7-17); Calcium 8.5 mg/dL (8.4-10.2); Carbon Dioxide 28 mmol/L (22-30); Chloride 99 mmol/L (98-107); Glucose 106 mg/dL (74-99); Non-African American GFR(CKD) >90 (>60 ml/min/1.73 sqM); Potassium 3.5 mmol/L (3.5-5.1); Sodium 131 mmol/L (137-145)
[2022-04-12] MEDS: NICOTINE 14MG/24HR PATCH TRANSDERM SCH ×2 (09:07→09:12)
[2022-04-12] MEDS: ENOXAPARIN 40 MG/0.4 ML SYRINGE SQ SCH (09:09)
--- NOTE | 2022-04-12 09:47 | CA ---
Transthoracic Echo Report Name: Sunshine Graham Age: 62 Gender: F : 1960 Exam Date: 04/12/2022 07:55 Exam Location: [place] Echo Ht (in): 69 Wt (lb): 160 Ordering Physician: Alfredo Correa DO Attending/Referring Phys: [id number], Sunny Core Filer Nay Galindo RDCS Procedure CPT: Indications: CP Cardiac Hx: No cardiac hx Technical Quality: Good Contrast 1: Total Dose (mL): Contrast 2: Total Dose (mL): MEASUREMENTS (Male / Female) Normal Values 2D ECHO LV Diastolic Diameter PLAX 4.1 cm 4.2 - 5.9 / 3.9 - 5.3 cm LV Systolic Diameter PLAX 2.8 cm IVS Diastolic Thickness 1.1 cm 0.6 - 1.0 / 0.6 - 0.9 cm LVPW Diastolic Thickness 1.0 cm 0.6 - 1.0 / 0.6 - 0.9 cm LV Relative Wall Thickness 0.5 M-MODE Aortic Root Diameter MM 3.2 cm LA Systolic Diameter MM 2.4 cm LA Ao Ratio MM 0.7 MV E Point Septal Separation 1.1 cm AV Cusp Separation MM 2.1 cm DOPPLER AV Peak Velocity 131.8 cm/s AV Peak Gradient 7.0 mmHg MV Area PHT 3.7 cm??? MR Peak Velocity 115.4 cm/s MR Peak Gradient 5.3 mmHg Mitral E Point Velocity 72.0 cm/s Mitral A Point Velocity 80.2 cm/s Mitral E to A Ratio 0.9 MV Deceleration Time 202.8 ms TR Peak Velocity 138.7 cm/s TR Peak Gradient 7.7 mmHg Right Ventricular Systolic Press 12.1 mmHg FINDINGS Left Ventricle Mildly increased septal wall thickness. Mildly increased posterior wall thickness. Left ventricular ejection fraction is estimated at 55-60 %. Left ventricular cavity size normal. Right Ventricle The right ventricle is normal in size and function. Right Atrium The right atrium is normal in size. Left Atrium The left atrium is normal in size. Mitral Valve Structurally normal mitral valve without significant stenosis or prolapse. There is trace mitral regurgitation. Aortic Valve Structurally normal aortic valve without significant sclerosis or stenosis. There is no aortic regurgitation. Tricuspid Valve Structurally normal tricuspid valve without significant stenosis. Pulmonary artery systolic pressure is normal. Trace tricuspid regurgitation. Pulmonic Valve Structurally normal pulmonic valve without significant stenosis. There is no pulmonic regurgitation. Pericardium Normal pericardium without effusion. Aorta Normal aortic root dimension. CONCLUSIONS LVH with preserved LV systolic function Previewed by: Dr. Eleno Leija MD (Electronically Signed) Final Date: 12 April 2022 09:46
[2022-04-12] MEDS ORDERED: ASPIRIN 325 MG TAB PO SCH (10:00)
[2022-04-12 11:05] LABS: Chol/HDL Ratio 2.46 Ratio; LDL Cholesterol,Calculated 104.9 mg/dL (0.0-131.0)
--- NOTE | 2022-04-12 11:32 | NM ---
EXAMINATION TYPE: NM stress lexiscan cardiolite DATE OF EXAM: 04/12/2022 COMPARISON: NONE HISTORY: Chest pain TECHNIQUE: After the intravenous administration of 9.9 mCi Tc 99m Sestamibi - Cardiolite resting SPE CT images acquired 45 minutes post injection. The patient received 0.4mg Lexiscan, 25.2 mCi Tc 99m Sestamibi - Stress images obtained [address] injection FINDINGS: Review of stress and rest SPECT images demonstrates some decreased uptake along the inferolateral lef t ventricle at stress and rest images, along the lateral wall there is a decreased uptake at stress a s compared to rest images. Gated analysis shows normal wall motion with an estimated left ventricula r ejection fraction of 62 %. 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 Consider echocardiographic correlatio n for elevated ejection fraction.
[2022-04-12] MEDS: SODIUM BICARBONATE TAB 650 MG TAB PO SCH ×3 (11:39→20:35)
[2022-04-12] MEDS: diazePAM 5 MG TAB PO SCH ×2 (11:56→16:51)
[2022-04-12] MEDS: MAGNESIUM OXIDE 400 MG TAB PO SCH ×2 (11:57→20:35)
[2022-04-12] MEDS: ATORVASTATIN 80 MG TAB PO SCH (11:57)
--- NOTE | 2022-04-12 13:41 | CA ---
Lexiscan Nuclear Stress Test Report Name: Sunshine Graham Exam Date: 04/12/2022 10:21 Exam Location: [place] Stress Ht (in): 69 Wt (lb): 160 BSA: 1.88 Ordering Phys: Oni Bailon DO Referring Phys: BAILON Technologist: Bruno Saha Age: 62 Gender: F : 1960 Procedure CPT: Indications: Reflex order-Stress test ICD-10 Codes: Patient History: Medications: SEE CHART Meds past 24 hrs: Pretest Chest Pain: STRESS TEST Lexiscan Protocol Exercise Duration (min:sec): 01:[address] Depressions (mm): Angina Score: Neri Score: Resting HR (bpm): 85 Peak HR (bpm): 103 Resting BP (mmHg): 138 / 95 Peak BP (mmHg): 151 / 86 MPHR: 159 Target HR: 135 % MPHR: 65 METS: 1.0 Total Dose: Peak Dose: Atropine: Double Product: 17048 BP Response: Stress Termination: INFUSION COMPLETE Stress Symptoms: NAUSEA Stress Summary: ECG ANALYSIS Resting ECG: Stress ECG: CONCLUSIONS Lexiscan Cardiolite stress test performed Heart rate 88 beats a minute, blood pressure 138/95 mmHg Patient received Lexiscan per protocol No ECG abnormalities She complained of nausea She required reversal with Aminophyllin No ECG evidence for ischemia or arrhythmias Nuclear portion will be reported separately Dr. Eleno Leija MD (Electronically Signed) Final Date: 12 April 2022 13:40
--- NOTE | 2022-04-12 13:46 | P.PN ---
Subjective HISTORY OF PRESENTING ILLNESS Patient is a pleasant 62-year-old female with history of previous neck injury requiring cervical surgery, alcohol abuse who presents secondary chest pain. Patient states normally she has been doing fairly well however over the last 2-3 days she has been having chest pressure associated with some diaphoresis and palpitations which can be worse if she is doing things and improved with rest. She denies any prior similar episodes. She denies any changes in medications and does not take any medications. She was found have elevated alcohol 285. EKG shows normal sinus rhythm, incomplete right bundle branch block with no significant ST or T wave abnormalities. Troponin normal 3, magnesium 1.4, proBNP 25. 04/12/2022 Patient seen and examined at bedside, no distress. She denies any further chest pain. Her vital signs are stable. BP 140/70. She is currently on aspirin and statin. Her main complaint is decreased range of motion in her left arm. Patient underwent Lexiscan stress test today which revealed pharmacologically induced left ventricular myocardial ischemia with inferolateral left ventricular ischemia, lateral wall ischemia. Echocardiogram revealed EF 55-60%, trace MR. PHYSICAL EXAMINATION Vital signs reviewed. CONSTITUTIONAL: No apparent distress. HEENT: Head is normocephalic. Pupils are equal, round. No JVD. CHEST EXAMINATION: Lungs are clear to auscultation. No chest wall tenderness is noted on palpation or with deep breathing. HEART EXAMINATION: Regular rate and rhythm. S1, S2 heard. No murmurs, gallops or rub. ABDOMEN: Soft, nontender. Positive bowel sounds. EXTREMITIES: 2+ peripheral pulses, no lower extremity edema and no calf tenderness. NEUROLOGIC EXAMINATION: Patient is awake, alert and oriented x3. ASSESSMENT Atypical chest pain however some typical features Abnormal Lexiscan stress test 04/12 Alcohol abuse Hypomagnesemia PLAN We will plan for cardiac catheterization tomorrow. Continue aspirin and statin I have discussed the risks, benefits and alternative therapies for the above- mentioned procedure and for both sedation/analgesia as well as necessary blood product administration, if indicated, as they pertain to this patient. The patient has indicated understanding and acceptance of the risks and procedures discussed. Questions have been answered appropriately and she is agreeable to move forward with the above-stated procedure. Further recommendations based on clinical course Nurse practitioner note has been reviewed by physician. Signing provider agrees with the documented findings, assessment, and plan of care. Objective - Vital Signs Vital signs: Vital Signs Temp 98.4 F 04/12/22 08:00 Pulse 86 04/12/22 08:00 Resp 18 04/12/22 08:00 BP 140/79 04/12/22 08:00 Pulse Ox 95 04/12/22 08:00 FiO2 Intake & Output 04/11/22 04/12/22 04/12/22 18:59 06:59 18:59 Intake Total 500 Balance 500 Intake: Oral 500 Other: Voiding Method Toilet Toilet Toilet # Voids 3 3 # Bowel Movements 1 - Labs CBC & Chem 7: 04/11/22 02:51 04/12/22 07:26 Labs: Abnormal Lab Results - Last 24 Hours (Table) 04/12/22 Range/Units 07:26 Sodium 131 L (137-145) mmol/L Creatinine 0.39 L (0.52-1.04) mg/dL Glucose 106 H (74-99) mg/dL HDL Cholesterol 79.30 H (40.00-60.00) mg/dL
--- NOTE | 2022-04-12 17:44 | P.PN ---
Progress Note - Text Progress Note Date: 04/12/22 Chief Complaint: Chest pain History of presenting complaint: This is a 62-year-old patient, follows with Dr. Ogden . Previously 2019. following a fall for alcohol intoxication. found to have a spinal cord concussion and transferred out to [facility]. Patient did undergo surgery at [facility] was then in rehab. Did well subsequently. Patient subsequently has gone back on taking alcohol. Patient's had multiple admissions for alcohol intoxication. Chronic stable conditions include gastritis, esophagitis, alcohol use disorder, alcoholic myopathy Patient now presents with anterior chest wall pain going to her left shoulder. Doesn't feel about 2 days. Intermittent. Some shortness of breath. Present at rest. No aggravating or relieving factors. Patient continued to drink alcohol and also smoke half a pack a day. Patient not very active. Does use a walker. Takes about a pint a day. Last drink 2 days ago. Admitted with unstable angina. Alcohol withdrawal syndrome. April 12: Patient underwent nuclear stress test today. Positive for reversibility. 4 cardiac cath tomorrow. On Valium. Discussed. No chest pain today. Active Medications Aminophylline (Aminophylline 500 Mg/20 Ml Vial) 100 mg IV ONCE PRN PRN Reason: Patient Response Stop: 04/12/22 23:00 Aspirin (Aspirin 81 Mg) 81 mg PO DAILY [facility] Atorvastatin Calcium (Atorvastatin 80 Mg Tab) 80 mg PO DAILY [facility] Last Admin: 04/12/22 11:57 Dose: 80 mg Caffeine Citrate (Caffeine Citrate 60 Mg/3 Ml Vial) 60 mg IV ONCE PRN PRN Reason: Patient Response Stop: 04/12/22 23:00 Diazepam (Diazepam 5 Mg Tab) 5 mg PO TID [facility] Last Admin: 04/12/22 16:51 Dose: 5 mg Enoxaparin Sodium (Enoxaparin 40 Mg/0.4 Ml Syringe) 40 mg SQ DAILY [facility] Last Admin: 04/12/22 09:09 Dose: 40 mg Heparin Sodium (Porcine) 10, (000 unit/ Sodium Chloride) 1,001 mls @ 999 mls/hr IRRIGATION ONCE PRN PRN Reason: INTRA-OP Stop: 04/13/22 23:00 Heparin Sodium (Porcine) 2,500 (unit/ Sodium Chloride) 250.5 mls @ 250 mls/hr IRRIGATION ONCE PRN PRN Reason: INTRA-OP Stop: 04/13/22 23:00 Sodium Chloride 1,000 ml/ IV (Solution) 1,000 mls @ 72.575 mls/hr IV .[id number] [facility] Lorazepam (Lorazepam 2 Mg/Ml Inj) 1 mg IV Q2HR PRN PRN Reason: CIWA 8 or 9 Last Admin: 04/12/22 12:00 Dose: 1 mg Lorazepam (Lorazepam 2 Mg/Ml Inj) 1 mg IV Q1HR PRN PRN Reason: CIWA 10 to 15 Lorazepam (Lorazepam 2 Mg/Ml Inj) 2 mg IV Q10M PRN PRN Reason: CIWA 16 or higher Stop: 04/13/22 03:48 Magnesium Oxide (Magnesium Oxide 400 Mg Tab) 400 mg PO BID [facility] Last Admin: 04/12/22 11:57 Dose: 400 mg Nicotine (Nicotine 14mg/24hr Patch) 1 patch TRANSDERM DAILY [facility] Last Admin: 04/12/22 09:12 Dose: Not Given Nitroglycerin (Nitroglycerin Sl Tabs 0.4 Mg Tab) 0.4 mg SUBLINGUAL Q5M PRN PRN Reason: Chest Pain Regadenoson (Regadenoson 0.4 Mg/5 Ml Syringe) 0.4 mg IV ONCE PRN PRN Reason: Per Protocol Stop: 04/12/22 23:00 Sodium Bicarbonate (Sodium Bicarbonate Tab 650 Mg Tab) 650 mg PO TID [facility] Last Admin: 04/12/22 11:56 Dose: 650 mg Thiamine HCl (Thiamine 100 Mg Tab) 100 mg PO BID-W/MEALS [facility] Last Admin: 04/12/22 11:57 Dose: 100 mg Past medical history to include: Spinal cord concussion secondary to fall, alcohol use disorder, chronic nicotine dependence, gastritis, esophagitis, alcoholic myopathy Social history: Lives with her ,'s drinks at least one-to pint of whiskey a day, smoking since 1997 Family history: Mother of melanoma Physical examination: VITAL SIGNS: 98.4, 86, 18, 140/79, 95% room air GENERAL: laying in bed, tired EYES: Pupils equal. Conjunctiva normal. HEENT: External appearance of nose and ears normal, oral cavity grossly normal. NECK: JVD not raised; masses not palpable. HEART: First and second heart sounds are normal; no edema. LUNGS:[ Respiratory rate increased; decreased breath sounds, ABDOMEN: Soft, mildly epigastric tenderness, no guarding rigidity liver spleen not palpable, no masses palpable. PSYCH: Alert and oriented x3; mood and affect anxious. NEUROLOGICAL: Cranial nerves grossly intact; no facial asymmetry, power and sensation grossly intact. Tremors present INVESTIGATIONS, reviewed in the clinical context: 2-D echocardiogram: EF 55-60%. Nuclear stress test [April 12]: Showing reversibility April 12: Sodium 131 potassium 3.5 creatinine 0.39 LDL 104 White count 6.9 hemoglobin 13.2 platelets 106 potassium 3.9 creatinine 0.4 magnesia 1.4 AST 47 Troponin I 3 negative serum alcohol 256 EKG tracing personally reviewed by me-normal sinus rhythm. Chest x-ray film personally reviewed by me-possible chronic changes Assessment and plan: - unstable angina. Cardiac risk factors include smoking, sedentary. Positive nuclear stress test 4 cardiac cath tomorrow -Chronic gastritis/esophagitis, from alcoholism PPI. -Mild hyponatremia from excessive water intake. Follow closely -Acute alcohol intoxication, Watch for withdrawals -metabolic acidosis from alcoholism: Sodium bicarbonate -Alcohol withdrawal syndrome: Valium 5 mg every 8. CIWA scale -Hypomagnesemia Magnesium oxide -Alcohol use disorder Will college admissions counselor -Chronic nicotine dependence, patient's cigarette smoker Nicotine patch -Alcoholic hepatitis Follow LFTs -Chronic left shoulder pain Pain controlled -Alcoholic myopathy, causing gait dysfunction Fall precautions. 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 Uses a walker Patient will be undergoing cardiac catheterization tomorrow. We'll change Valium to 2 mg every 8 other medications to continue.
[2022-04-12] MEDS: diazePAM 2 MG TAB PO SCH (20:35)
[2022-04-13] MEDS: SODIUM BICARBONATE TAB 650 MG TAB PO SCH ×3 (04:10→20:02)
[2022-04-13] MEDS: THIAMINE 100 MG TAB PO SCH ×2 (04:10→16:50)
[2022-04-13] MEDS: ASPIRIN 81 MG PO SCH (04:10)
[2022-04-13] MEDS: ATORVASTATIN 80 MG TAB PO SCH (04:10)
[2022-04-13] MEDS: MAGNESIUM OXIDE 400 MG TAB PO SCH ×2 (04:10→20:02)
[2022-04-13] MEDS: ENOXAPARIN 40 MG/0.4 ML SYRINGE SQ SCH (04:11)
[2022-04-13] MEDS: LORazepam 2 MG/ML INJ IV PRN ×3 (04:11→23:01)
[2022-04-13] MEDS: SODIUM CHLORIDE 0.9% 1,000 ML in EMPTY BAG 1 BAG IV SCH ×3 (04:34→19:52)
[2022-04-13 06:15] LABS: Glucose,Whole Blood 108 mg/dL (70-110)
[2022-04-13] MEDS ORDERED: HEPARIN SODIUM,PORCINE 2,500 UNIT in SODIUM CHLORIDE 0.9% 250 ML IRRIGATION PRN (07:00)
[2022-04-13] MEDS ORDERED: HEPARIN SODIUM,PORCINE 10,000 UNIT in SODIUM CHLORIDE 0.9% 1,000 ML IRRIGATION PRN (07:00)
[2022-04-13] MEDS: NICOTINE 14MG/24HR PATCH TRANSDERM SCH (07:37)
[2022-04-13] MEDS ORDERED: methylPREDNISolone SOD SUCCI 125 MG/2 ML VIAL ONE (07:52)
[2022-04-13] MEDS ORDERED: VERAPAMIL 2.5 MG/ML 2 ML AMP ONE (07:52)
[2022-04-13] MEDS ORDERED: diphenhydrAMINE 50 MG/ML 1 ML VIAL ONE (07:53)
[2022-04-13] MEDS ORDERED: diphenhydrAMINE 50 MG/ML 1 ML VIAL IVP STA (08:02)
[2022-04-13] MEDS ORDERED: methylPREDNISolone SOD SUCCI 125 MG/2 ML VIAL IV STA (08:02)
[2022-04-13] MEDS ORDERED: IV FLUID CONTINUATION 850 ML IV ONE (08:20)
[2022-04-13] MEDS ORDERED: fentaNYL (PF) 50 MCG/ML 2 ML AMP ONE (08:31)
[2022-04-13] MEDS ORDERED: fentaNYL (PF) 50 MCG/ML 2 ML AMP IV ONE (08:33)
[2022-04-13] MEDS ORDERED: LIDOCAINE 1% INJ 10MG/ML (5 ML VIAL-PF) SQ ONE (08:33)
[2022-04-13] MEDS ORDERED: MIDAZOLAM 2 MG/2 ML VIAL IV ONE (08:33)
[2022-04-13] MEDS ORDERED: VERAPAMIL SYRINGE (5 MG/10 ML) INTRAARTER ONE (08:34)
[2022-04-13] MEDS ORDERED: HEPARIN SODIUM 1,000 UN/ML (10ML VL) IV ONE (08:39)
[2022-04-13] MEDS ORDERED: IOPAMIDOL-370 125ML BTL INJ ONE (08:54)
[2022-04-13 09:07] LABS: Basophils % (A) 0 %; Eosinophils # (A) 0.2 k/uL (0-0.7); Eosinophils % (A) 5 %; HCT 40.5 % (34.0-46.0); HGB 13.7 gm/dL (11.4-16.0); Lymphocytes # (A) 1.3 k/uL (1.0-4.8); Lymphocytes % (A) 30 %; MCH 33.3 pg (25.0-35.0); Mean Platelet Volume 8.3; Monocytes # (A) 0.3 k/uL (0-1.0); Monocytes % (A) 7 %; Neutrophils # (A) 2.4 k/uL (1.3-7.7); Neutrophils % (A) 55 %; RBC 4.13 m/uL (3.80-5.40); RDW 13.3 % (11.5-15.5); WBC 4.3 k/uL (3.8-10.6)
[2022-04-13 09:35] LABS: African American GFR (CKD) >90 (>60 ml/min/1.73 sqM); Anion Gap 9 mmol/L; Blood Urea Nitrogen 8 mg/dL (7-17); Calcium 8.7 mg/dL (8.4-10.2); Carbon Dioxide 25 mmol/L (22-30); Chloride 99 mmol/L (98-107); Glucose 96 mg/dL (74-99); Non-African American GFR(CKD) >90 (>60 ml/min/1.73 sqM); Potassium 3.4 mmol/L (3.5-5.1); Sodium 133 mmol/L (137-145)
[2022-04-13] MEDS: diazePAM 2 MG TAB PO SCH ×3 (12:05→20:02)
[2022-04-13 12:31] LABS: Platelet Count 90 k/uL (150-450)
[2022-04-13] MEDS ORDERED: POTASSIUM CHLORIDE ER 20 MEQ TAB.ER PO STA (17:51)
--- NOTE | 2022-04-13 17:52 | P.PN ---
Progress Note - Text Progress Note Date: 04/13/22 Chief Complaint: Chest pain History of presenting complaint: This is a 62-year-old patient, follows with Dr. Ogden . Previously 2019. following a fall for alcohol intoxication. found to have a spinal cord concussion and transferred out to [facility]. Patient did undergo surgery at [facility] was then in rehab. Did well subsequently. Patient subsequently has gone back on taking alcohol. Patient's had multiple admissions for alcohol intoxication. Chronic stable conditions include gastritis, esophagitis, alcohol use disorder, alcoholic myopathy Patient now presents with anterior chest wall pain going to her left shoulder. Doesn't feel about 2 days. Intermittent. Some shortness of breath. Present at rest. No aggravating or relieving factors. Patient continued to drink alcohol and also smoke half a pack a day. Patient not very active. Does use a walker. Takes about a pint a day. Last drink 2 days ago. Admitted with unstable angina. Alcohol withdrawal syndrome. April 12: Patient underwent nuclear stress test today. Positive for reversibility. 4 cardiac cath tomorrow. On Valium. Discussed. No chest pain today. April 13: Cardiac catheterization showed normal coronaries. On Valium 2 mg. Patient is sleepy after procedure. Have the patient get up and ambulate with support later today. DC Valium after tonight. Home tomorrow. Active Medications Aspirin (Aspirin 81 Mg) 81 mg PO DAILY [facility] Last Admin: 04/13/22 04:10 Dose: 81 mg Atorvastatin Calcium (Atorvastatin 20 Mg Tab) 20 mg PO DAILY [facility] Diazepam (Diazepam 2 Mg Tab) 2 mg PO TID [facility] Stop: 04/13/22 23:59 Last Admin: 04/13/22 15:59 Dose: Not Given Enoxaparin Sodium (Enoxaparin 40 Mg/0.4 Ml Syringe) 40 mg SQ DAILY [facility] Last Admin: 04/13/22 04:11 Dose: 40 mg Heparin Sodium (Porcine) 10, (000 unit/ Sodium Chloride) 1,001 mls @ 999 mls/hr IRRIGATION ONCE PRN PRN Reason: INTRA-OP Stop: 04/13/22 23:00 Heparin Sodium (Porcine) 2,500 (unit/ Sodium Chloride) 250.5 mls @ 250 mls/hr IRRIGATION ONCE PRN PRN Reason: INTRA-OP Stop: 04/13/22 23:00 Sodium Chloride 1,000 ml/ IV (Solution) 1,000 mls @ 72.575 mls/hr IV .[id number] [facility] Last Admin: 04/13/22 07:37 Dose: Not Given Lorazepam (Lorazepam 2 Mg/Ml Inj) 1 mg IV Q2HR PRN PRN Reason: CIWA 8 or 9 Last Admin: 04/13/22 16:54 Dose: 1 mg Lorazepam (Lorazepam 2 Mg/Ml Inj) 1 mg IV Q1HR PRN PRN Reason: CIWA 10 to 15 Magnesium Oxide (Magnesium Oxide 400 Mg Tab) 400 mg PO BID [facility] Last Admin: 04/13/22 04:10 Dose: 400 mg Nicotine (Nicotine 14mg/24hr Patch) 1 patch TRANSDERM DAILY [facility] Last Admin: 04/13/22 07:37 Dose: Not Given Nitroglycerin (Nitroglycerin Sl Tabs 0.4 Mg Tab) 0.4 mg SUBLINGUAL Q5M PRN PRN Reason: Chest Pain Sodium Bicarbonate (Sodium Bicarbonate Tab 650 Mg Tab) 650 mg PO TID [facility] Last Admin: 04/13/22 16:50 Dose: 650 mg Thiamine HCl (Thiamine 100 Mg Tab) 100 mg PO BID-W/MEALS [facility] Last Admin: 04/13/22 16:50 Dose: 100 mg Past medical history to include: Spinal cord concussion secondary to fall, alcohol use disorder, chronic nicotine dependence, gastritis, esophagitis, alcoholic myopathy Social history: Lives with her ,'s drinks at least one-to pint of whiskey a day, smoking since 1997 Family history: Mother of melanoma Physical examination: VITAL SIGNS: Afebrile, 75, 14, 154/88, GENERAL: laying in bed, sleepy EYES: Pupils equal. Conjunctiva normal. HEENT: External appearance of nose and ears normal, oral cavity grossly normal. NECK: JVD not raised; masses not palpable. HEART: First and second heart sounds are normal; no edema. LUNGS:[ Respiratory rate increased; decreased breath sounds, ABDOMEN: Soft, mildly epigastric tenderness, no guarding rigidity liver spleen not palpable, no masses palpable. PSYCH: Answering questions appropriately NEUROLOGICAL: Cranial nerves grossly intact; no facial asymmetry, power and sensation grossly intact. Tremors present INVESTIGATIONS, reviewed in the clinical context: April 13: Record 4.3 hemoglobin 13.7 platelets 90 pression 3.4 creatinine 0.33 2-D echocardiogram: EF 55-60%. Nuclear stress test [April 12]: Showing reversibility April 12: Sodium 131 potassium 3.5 creatinine 0.39 LDL 104 White count 6.9 hemoglobin 13.2 platelets 106 potassium 3.9 creatinine 0.4 magnesia 1.4 AST 47 Troponin I 3 negative serum alcohol 256 EKG tracing personally reviewed by me-normal sinus rhythm. Chest x-ray film personally reviewed by me-possible chronic changes Assessment and plan: - unstable angina. Cardiac risk factors include smoking, sedentary. Positive nuclear stress test 4 cardiac cath tomorrow -Chronic gastritis/esophagitis, from alcoholism PPI. -Mild hyponatremia from excessive water intake. Follow closely -Acute alcohol intoxication, Watch for withdrawals -metabolic acidosis from alcoholism: Sodium bicarbonate -Alcohol withdrawal syndrome: Valium 5 mg every 8. CIWA scale -Hypomagnesemia Magnesium oxide -Alcohol use disorder Will halfway house counselor -Chronic nicotine dependence, patient's cigarette smoker Nicotine patch -Alcoholic hepatitis Follow LFTs -Chronic left shoulder pain Pain controlled -Alcoholic myopathy, causing gait dysfunction Fall precautions. 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 Uses a walker Patient will be undergoing cardiac catheterization tomorrow. We'll change Valium to 2 mg every 8 other medications to continue.
[2022-04-14] MEDS: LORazepam 2 MG/ML INJ IV PRN ×2 (01:16→05:30)
[2022-04-14] MEDS: SODIUM CHLORIDE 0.9% 1,000 ML in EMPTY BAG 1 BAG IV SCH (06:17)
[2022-04-14 06:42] VITALS: RESP 16
[2022-04-14] MEDS: THIAMINE 100 MG TAB PO SCH (06:52)
[2022-04-14 08:49] VITALS: TEMP 98.2
[2022-04-14] MEDS: ASPIRIN 81 MG PO SCH (08:50)
[2022-04-14] MEDS: ENOXAPARIN 40 MG/0.4 ML SYRINGE SQ SCH (08:50)
[2022-04-14] MEDS: MAGNESIUM OXIDE 400 MG TAB PO SCH (08:50)
[2022-04-14] MEDS: SODIUM BICARBONATE TAB 650 MG TAB PO SCH (08:50)
[2022-04-14] MEDS: NICOTINE 14MG/24HR PATCH TRANSDERM SCH (08:50)
[2022-04-14] MEDS ORDERED: ATORVASTATIN 20 MG TAB PO SCH (09:00)
[2022-04-14] MEDS ORDERED: METOPROLOL SUCCINATE (ER) 25 MG TAB.ER.24H PO SCH (09:00)
[2022-04-14] MEDS ORDERED: ATORVASTATIN 40 MG TAB PO SCH (09:00)
[2022-04-14] MEDS ORDERED: LORazepam 0.5 MG TAB PO PRN (09:28)
[2022-04-14 09:47] LABS: African American GFR (CKD) >90 (>60 ml/min/1.73 sqM); Anion Gap 11 mmol/L; Blood Urea Nitrogen 8 mg/dL (7-17); Calcium 9.2 mg/dL (8.4-10.2); Carbon Dioxide 23 mmol/L (22-30); Chloride 101 mmol/L (98-107); Glucose 101 mg/dL (74-99); Non-African American GFR(CKD) >90 (>60 ml/min/1.73 sqM); Potassium 3.8 mmol/L (3.5-5.1); Sodium 135 mmol/L (137-145)
--- NOTE | 2022-04-14 10:47 | P.CARDCATH ---
Description of Procedure: PROCEDURES PERFORMED: Left heart catheterization, bilateral coronary angiography DATE OF PROCEDURE: 04/13/2022 INDICATION: Abnormal stress test, chest pain CONSENT:I have discussed the risks, benefits and alternative therapies for the above-mentioned procedure and for both sedation/analgesia as well as necessary blood product administration, if indicated, as they pertain to this patient. The patient has indicated understanding and acceptance of the risks and procedures discussed. PROCEDURE: After the risks, benefits and alternatives of the above mentioned procedure explained in detail with the patient, informed consent was obtained. Patient was taken to the catheterization lab and prepped and draped in usual fashion. 1% lidocaine was used to anesthetize the right radial artery. A 6- Marshallese sheath was placed in the right radial artery using modified Seldinger technique. Left coronary angiography was performed with a 5-Marshallese JL 3.5 catheter and right coronary angiography was performed with a 5-Marshallese JR5 catheter in various views. A 5-Marshallese FR5 catheter was inserted into the left ventricle and pressure measurements were obtained. The right radial sheath was removed and a TR band was placed with hemostasis achieved. The patient tolerated the procedure well. Patient was transported back to the post cathete rization holding area in stable condition. Conscious Sedation: Patient was monitored under the direct supervision of vision of myself for conscious sedation using Versed and fentanyl for a total duration of 22 minutes HEMODYNAMICS: Ao: 137/81 LV: 139/5, LVEDP 18 SELECTIVE CORONARY ARTERIOGRAPHY: LEFT MAIN: The left main is a large caliber vessel which bifurcates into the LAD and circumflex. There is no significant stenosis. LEFT ANTERIOR DESCENDING CORONARY ARTERY: LAD is a large caliber vessel which wraps around to the apex. There are mild luminal irregularities with a mid LAD tandem 30% and 30-40% mid LAD stenoses. LEFT CIRCUMFLEX CORONARY ARTERY: Left circumflex is a moderate caliber vessel with mild luminal irregularities. RIGHT CORONARY ARTERY: The right coronary artery is a large caliber vessel which gives off a PDA and PLV branch and is the dominant vessel. There is no significant stenosis. FINAL IMPRESSION: 1. Mild CAD as described above with mid LAD 30-40% stenosis and otherwise mild luminal irregularities. 2. Mildly elevated left sided filling pressures PLAN: 1. Aggressive risk factor modification per most recent ACC/AHA guidelines. 2. Follow-up in the office in 1-2 weeks.
--- NOTE | 2022-04-14 11:37 | P.PN ---
Subjective HISTORY OF PRESENTING ILLNESS Patient is a pleasant 62-year-old female with history of previous neck injury requiring cervical surgery, alcohol abuse who presents secondary chest pain. Patient states normally she has been doing fairly well however over the last 2-3 days she has been having chest pressure associated with some diaphoresis and palpitations which can be worse if she is doing things and improved with rest. She denies any prior similar episodes. She denies any changes in medications and does not take any medications. She was found have elevated alcohol 285. EKG shows normal sinus rhythm, incomplete right bundle branch block with no significant ST or T wave abnormalities. Troponin normal 3, magnesium 1.4, proBNP 25. Patient underwent Lexiscan stress test on 04/12/2022 which revealed pharmacologically induced left ventricular myocardial ischemia with inferolateral left ventricular ischemia, lateral wall ischemia. Echocardiogram revealed EF 55-60%, trace MR. She underwent cardiac catheterization with Dr. Verdugo on 04/13/2022 which revealed mild coronary artery disease with mid LAD 3040% stenosis, otherwise mild luminal irregularities, mildly elevated left-sided filling pressures 04/14/2022 Patient seen and examined at bedside, no distress. She denies any further chest pain. Blood pressure, slightly elevated this morning. SBP 150s-160s. She is currently on aspirin and statin. PHYSICAL EXAMINATION Vital signs reviewed. CONSTITUTIONAL: No apparent distress. HEENT: Head is normocephalic. Pupils are equal, round. No JVD. CHEST EXAMINATION: Lungs are clear to auscultation. No chest wall tenderness is noted on palpation or with deep breathing. HEART EXAMINATION: Regular rate and rhythm. S1, S2 heard. No murmurs, gallops or rub. ABDOMEN: Soft, nontender. Positive bowel sounds. EXTREMITIES: 2+ peripheral pulses, no lower extremity edema and no calf tenderness. NEUROLOGIC EXAMINATION: Patient is awake, alert and oriented x3. SKIN: Right radial cath site, clean, dry, no hematoma. 2+ peripheral pulses ASSESSMENT Atypical chest pain however some typical features Mild nonobstructive coronary artery disease Alcohol abuse Hypomagnesemia PLAN Start metoprolol succinate 25 mg daily Continue aspirin and statin From cardiology perspective, patient is stable to be discharged. Follow up outpatient with Dr. Verdugo Nurse practitioner note has been reviewed by physician. Signing provider agrees with the documented findings, assessment, and plan of care. Objective - Vital Signs Vital signs: Vital Signs Temp 98.2 F 08/03/22 08:44 Pulse 80 04/14/22 04:00 Resp 16 04/14/22 08:44 BP 142/91 04/14/22 08:44 Pulse Ox 93 L 04/14/22 08:44 FiO2 Intake & Output 04/13/22 04/14/22 04/14/22 18:59 06:59 18:59 Intake Total 1999 240 Balance 1999 240 Intake: IV 500 Intake, IV Titration 1100 Amount IV Fluid Continuation 850 800 ml @ 0 mls/hr IV .STK- [facility] Rx#:[id number] Sodium Chloride 0.9% 1, 300 000 ml In Empty Bag 1 bag @ 1 ML/KG/HR 72.575 mls/ hr IV .[id number] [facility] Rx#: [id number] Oral 400 240 Other: Voiding Method Toilet Toilet # Voids 1 - Labs CBC & Chem 7: 04/13/22 08:00 04/14/22 08:44 Labs: Abnormal Lab Results - Last 24 Hours (Table) 04/13/22 04/14/22 Range/Units 08:00 08:44 Plt Count 90 L (150-450) k/uL Sodium 135 L (137-145) mmol/L Creatinine 0.38 L (0.52-1.04) mg/dL Glucose 101 H (74-99) mg/dL
[2022-04-14 12:36] VITALS: BP 135/81; PULSE 90
--- NOTE | 2022-04-14 17:14 | P.DS ---
Providers Date of admission: 04/11/22 03:48 Expected date of discharge: 04/14/22 Attending physician: Oswaldo Rush Consults: 04/11/22 03:48 Consult Physician Urgent Consulting Provider: David Ojeda Consult Reason/Comments: cp Do you want consulting provider notified?: Yes Primary care physician: Danny [facility] Course: Chief Complaint: Chest pain History of presenting complaint: This is a 62-year-old patient, follows with Dr. Ogden . Previously 2019. following a fall for alcohol intoxication. found to have a spinal cord c oncussion and transferred out to [facility]. Patient did undergo surgery at [facility] was then in rehab. Did well subsequently. Patient subsequently has gone back on taking alcohol. Patient's had multiple admissions for alcohol intoxication. Chronic stable conditions include gastritis, esophagitis, alcohol use disorder, alcoholic myopathy Patient now presents with anterior chest wall pain going to her left shoulder. Doesn't feel about 2 days. Intermittent. Some shortness of breath. Present at rest. No aggravating or relieving factors. Patient continued to drink alcohol and also smoke half a pack a day. Patient not very active. Does use a walker. Takes about a pint a day. Last drink 2 days ago. Admitted with unstable angina. Alcohol withdrawal syndrome. April 12: Patient underwent nuclear stress test today. Positive for reversibility. 4 cardiac cath tomorrow. On Valium. Discussed. No chest pain today. April 13: Cardiac catheterization showed normal coronaries. On Valium 2 mg. Patient is sleepy after procedure. Have the patient get up and ambulate with support later today. DC Valium after tonight. Home tomorrow. April 14: Discussed with patient. Valium was discontinued last night. Advised against smoking and alcohol. Past medical history to include: Spinal cord concussion secondary to fall, alcohol use disorder, chronic nicotine dependence, gastritis, esophagitis, alcoholic myopathy Social history: Lives with her ,'s drinks at least one-to pint of whiskey a day, smoking since 1997 Family history: Mother of melanoma Physical examination: VITAL SIGNS: 98.2, 90, 16, 135-81, 98% room air GENERAL: laying in bed, comfortable EYES: Pupils equal. Conjunctiva normal. HEENT: External appearance of nose and ears normal, oral cavity grossly normal. NECK: JVD not raised; masses not palpable. HEART: First and second heart sounds are normal; no edema. LUNGS:[ Respiratory rate increased; decreased breath sounds, ABDOMEN: Soft, mildly epigastric tenderness, no guarding rigidity liver spleen not palpable, no masses palpable. PSYCH: Answering questions appropriately NEUROLOGICAL: Cranial nerves grossly intact; no facial asymmetry, power and sensation grossly intact. Tremors present INVESTIGATIONS, reviewed in the clinical context: April 14: Potassium 3.8 April 13: Record 4.3 hemoglobin 13.7 platelets 90 pression 3.4 creatinine 0.33 2-D echocardiogram: EF 55-60%. Nuclear stress test [April 12]: Showing reversibility April 12: Sodium 131 potassium 3.5 creatinine 0.39 LDL 104 White count 6.9 hemoglobin 13.2 platelets 106 potassium 3.9 creatinine 0.4 magnesia 1.4 AST 47 Troponin I 3 negative serum alcohol 256 EKG tracing personally reviewed by me-normal sinus rhythm. Chest x-ray film personally reviewed by me-possible chronic changes Assessment and plan: -Anterior chest fall pain, likely musculoskeletal Negative cardiac cath -Chronic gastritis/esophagitis, from alcoholism PPI. -Mild hyponatremia from excessive water intake. Follow closely -Acute alcohol intoxication, Watch for withdrawals -metabolic acidosis from alcoholism: Sodium bicarbonate -Alcohol withdrawal syndrome: Valium 5 mg every 8. CIWA scale -Hypomagnesemia Magnesium oxide -Alcohol use disorder Consult -Chronic nicotine dependence, patient's cigarette smoker Nicotine patch -Alcoholic hepatitis Follow LFTs -Chronic left shoulder pain Pain controlled -Alcoholic myopathy, causing gait dysfunction Fall precautions. 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 Uses a walker Disposition: Home Patient Condition at Discharge: Undetermined Plan - Discharge Summary Discharge Rx Participant: No New Discharge Prescriptions: New Aspirin 81 mg PO DAILY tab Atorvastatin [Lipitor] 20 mg PO HS #30 tablet Metoprolol Succinate (ER) [Toprol XL] 25 mg PO DAILY #30 tab Nicotine 14Mg/24Hr Patch [Habitrol] 1 patch TRANSDERM DAILY #14 patch Famotidine [Pepcid] 20 mg PO BID #60 tablet Thiamine [Vitamin B-1] 100 mg PO BID-W/MEALS #60 tab Discharge Medication List Aspirin 81 mg PO DAILY tab 04/14/22 [Rx] Atorvastatin [Lipitor] 20 mg PO HS #30 tablet 04/14/22 [Rx] Famotidine [Pepcid] 20 mg PO BID #60 tablet 04/14/22 [Rx] Metoprolol Succinate (ER) [Toprol XL] 25 mg PO DAILY #30 tab 04/14/22 [Rx] Nicotine 14Mg/24Hr Patch [Habitrol] 1 patch TRANSDERM DAILY #14 patch 04/14/22 [Rx] Thiamine [Vitamin B-1] 100 mg PO BID-W/MEALS #60 tab 04/14/22 [Rx] Follow up Appointment(s)/Referral(s): Danny Ogden DO [Primary Care Provider] - 04/15/22 4:00 pm () Oni Verdugo DO [STAFF PHYSICIAN] - 4 Weeks (Spoke to legal secretary receptionistAnuradha. Office will call with appointment time) Patient Instructions/Handouts: *Surgery [facility] - After Heart Catheterization - Furniture Sales Associate Instructions Discharge/Stand Alone Forms: AA Meetings [facility], Community Resources, Outpatient Counseling, Inp Substance Abuse Facilities, Personal Log Sawyer Discharge Disposition: HOME SELF-CARE
== END 2022-04-14 15:05 | disposition home or self-care (01) | DRG 287 ==
LOC: EC 02:25 → 3SCARD 03:48
PROVIDERS: ADMIT Hospitalist; ATTEND Hospitalist
PROC: HZ2ZZZZ Detoxification Services for Substance Abuse Treatment (ICD-10-PCS; 2022-04-11)
PROC: 4A02XM4 Measurement of Cardiac Total Activity, External Approach (ICD-10-PCS; principal; 2022-04-12)
PROC: 3E033HZ Introduction of Radioactive Substance into Peripheral Vein, Percutaneous Approach (ICD-10-PCS; 2022-04-12)
PROC: 4A023N7 Measurement of Cardiac Sampling and Pressure, Left Heart, Percutaneous Approach (ICD-10-PCS; 2022-04-14)
PROC: B2111ZZ Fluoroscopy of Multiple Coronary Arteries using Low Osmolar Contrast (ICD-10-PCS; 2022-04-14)
DX: I25.110 Atherosclerotic heart disease of native coronary artery with unstable angina pectoris (principal); G72.1 Alcoholic myopathy; F10.239 Alcohol dependence with withdrawal, unspecified; E87.1 Hypo-osmolality and hyponatremia; E87.2 Acidosis; Z71.41 Alcohol abuse counseling and surveillance of alcoholic; K70.10 Alcoholic hepatitis without ascites; F10.229 Alcohol dependence with intoxication, unspecified; K20.90 Esophagitis, unspecified without bleeding; I10 Essential (primary) hypertension; F17.210 Nicotine dependence, cigarettes, uncomplicated; W19.XXXA Unspecified fall, initial encounter; M54.50 Low back pain, unspecified; M25.512 Pain in left shoulder; E83.42 Hypomagnesemia; F32.A Depression, unspecified; I08.1 Rheumatic disorders of both mitral and tricuspid valves; F41.9 Anxiety disorder, unspecified; G89.29 Other chronic pain; I45.10 Unspecified right bundle-branch block; K29.50 Unspecified chronic gastritis without bleeding; Z79.82 Long term (current) use of aspirin; Z79.899 Other long term (current) drug therapy; Z80.8 Family history of malignant neoplasm of other organs or systems; Z87.19 Personal history of other diseases of the digestive system; Z87.440 Personal history of urinary (tract) infections; Z86.010 Personal history of colon polyps; Z88.2 Allergy status to sulfonamides; Z91.013 Allergy to seafood; Z91.041 Radiographic dye allergy status
CPT/HCPCS: 36415; 71045; 78452; 80048; 80053; 80061; 80320; 83690; 83735; 83880; 84484; 85025; 85610; 85730; 93005; 93017; 93306; 93458; 96361; 96365; 96375; 99285

== ENCOUNTER 2022-05-15 16:53 | Emergency (ER) | payer MEDICARE, OTHER ==
[2022-05-15 17:01] VITALS: TEMP 98.5
[2022-05-15] MEDS ORDERED: LORazepam 2 MG/ML INJ IV STA ×2 (18:23→18:33)
[2022-05-15] MEDS ORDERED: THIAMINE 100 MG/ML 2 ML VIAL IM STA (18:33)
[2022-05-15] MEDS ORDERED: SODIUM CHLORIDE 0.9% 1,000 ML IV ONE (18:33)
[2022-05-15] MEDS ORDERED: SODIUM CHLORIDE 0.9% 1,000 ML IV STA (18:33)
[2022-05-15] MEDS ORDERED: Acetaminophen-Codeine 300-30mg TAB PO STA (18:34)
[2022-05-15 18:54] LABS: Basophils # (A) 0.1 k/uL (0-0.2); Basophils % (A) 1 %; Eosinophils # (A) 0.1 k/uL (0-0.7); Eosinophils % (A) 1 %; HCT 46.1 % (34.0-46.0); Lymphocytes # (A) 2.2 k/uL (1.0-4.8); Lymphocytes % (A) 20 %; MCH 33.8 pg (25.0-35.0); MCHC 34.8 g/dL (31.0-37.0); MCV 97.2 fL (80.0-100.0); Mean Platelet Volume 9.1; Monocytes # (A) 0.9 k/uL (0-1.0); Monocytes % (A) 8 %; Neutrophils # (A) 7.2 k/uL (1.3-7.7); Neutrophils % (A) 67 %; RBC 4.74 m/uL (3.80-5.40); RDW 13.8 % (11.5-15.5); WBC 10.8 k/uL (3.8-10.6)
[2022-05-15 18:56] LABS: ALT 14 U/L (4-34); AST 22 U/L (14-36); African American GFR (CKD) >90 (>60 ml/min/1.73 sqM); Albumin 4.2 g/dL (3.5-5.0); Alcohol <10 mg/dL; Alkaline Phosphatase 79 U/L (38-126); Anion Gap 17 mmol/L; Blood Urea Nitrogen 28 mg/dL (7-17); Calcium 9.1 mg/dL (8.4-10.2); Carbon Dioxide 23 mmol/L (22-30); Chloride 89 mmol/L (98-107); Glucose 101 mg/dL (74-99); Non-African American GFR(CKD) >90 (>60 ml/min/1.73 sqM); Potassium 3.4 mmol/L (3.5-5.1); Sodium 129 mmol/L (137-145); Total Bilirubin 1.1 mg/dL (0.2-1.3); Total Protein 7.1 g/dL (6.3-8.2)
[2022-05-15 18:58] LABS: Platelet Count 170 k/uL (150-450)
[2022-05-15 19:01] LABS: Amphetamine Screen,Urine Not Detected (NotDetected); Benzodiazepines Screen,Urine Detected (NotDetected); Cocaine Screen,Urine Not Detected (NotDetected); Opiate Screen,Urine Not Detected (NotDetected); Phencyclidine Screen,Urine Not Detected (NotDetected); Urn Cannabinoid Scrn Not Detected (NotDetected)
[2022-05-15 19:02] LABS: Barbiturate Screen,Urine Not Detected (NotDetected); Methadone Screen, Urine Not Detected (NotDetected); Oxycodone Screen, Urine Not Detected (NotDetected); Tricyclic Antidepressant,Urine Not Detected (NotDetected)
--- NOTE | 2022-05-15 21:08 | ED ---
Alcohol HPI - General Chief Complaint: Alcohol Stated Complaint: ETOH Time Seen by Provider: 05/15/22 17:01 Source: EMS Mode of arrival: EMS Limitations: no limitations - History of Present Illness Initial Comments: This patient is a 62-year-old woman who presents with complaint that she has had a day of nausea and vomiting. Also feeling anxious and shaky. Patient states she hadn't had a drinking binge. She had a couple days of drinking and was up to couple of fifths. Last drink was going on 3 days ago now. She has had previous alcohol withdrawal but she had been clean of alcohol for some weeks. The patient's main complaint today is that she is vomiting not keeping any fluids down. No brynn abdominal pain. No hematemesis or coffee-ground emesis. No change in bowel movement MD Complaint: alcohol withdrawal Time Since Last Drink: 1 -: days(s) Previous Visits for Alcohol Intoxication?: Yes Recent Trauma: No Associated Symptoms: nausea, vomiting - Related Data Previous Rx's Medication Instructions Recorded Aspirin 81 mg PO DAILY tab 04/14/22 Atorvastatin [Lipitor] 20 mg PO HS #30 tablet 04/14/22 Famotidine [Pepcid] 20 mg PO BID #60 tablet 04/14/22 Metoprolol Succinate (ER) [Toprol 25 mg PO DAILY #30 tab 04/14/22 XL] Nicotine 14Mg/24Hr Patch [Habitrol] 1 patch TRANSDERM DAILY #14 patch 04/14/22 Thiamine [Vitamin B-1] 100 mg PO BID-W/MEALS #60 tab 04/14/22 Famotidine [Pepcid] 20 mg PO BID #14 tablet 05/15/22 LORazepam [Ativan] 1 mg PO TID 2 Days #6 tab 05/15/22 Ondansetron Odt [Zofran ODT] 4 mg PO Q8HR PRN #10 tab 05/15/22 Allergies Allergy/AdvReac Type Severity Reaction Status Date / Time shellfish derived [Shellfish] Allergy Severe Dyspnea Verified 05/15/22 17:01 iodine Allergy Rash/Hives Verified 05/15/22 17:01 Sulfa (Sulfonamide Allergy Rash/Hives Verified 05/15/22 17:01 Antibiotics) Review of Systems ROS Statement: Those systems with pertinent positive or pertinent negative responses have been documented in the HPI. ROS Other: All systems not noted in ROS Statement are negative. Constitutional: Denies: fever, chills Respiratory: Denies: cough, dyspnea Cardiovascular: Denies: chest pain, palpitations, edema Gastrointestinal: Reports: nausea, vomiting. Denies: diarrhea, constipation, hematemesis, melena, hematochezia Genitourinary: Denies: dysuria, hematuria Musculoskeletal: Denies: back pain Skin: Denies: rash Neurological: Denies: headache, weakness Psychiatric: Reports: anxiety. 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 History of Any Multi-Drug Resistant Organisms: None Reported Past Surgical History: Back Surgery Additional Past Surgical History / Comment(s): Cervical surgery at [facility] d/t injury, colonoscopies/benign polypectomy Past Anesthesia/Blood Transfusion Reactions: No Reported Reaction, Motion Sick ness Additional Past Anesthesia/Blood Transfusion Reaction / Comment(s): PT has clausterphobia. Past Psychological History: Anxiety, Depression Smoking Status: Current every day smoker Past Alcohol Use History: Abuse, Daily, Occasional Past Drug Use History: None Reported - Past Family History Mother Family Medical History: Cancer Additional Family Medical History / Comment(s): Mother of melanoma Father Family Medical History: No Reported History Additional Family Medical History / Comment(s): Father is healthy General Exam Limitations: no limitations General appearance: alert, in no apparent distress Head exam: Present: atraumatic, normocephalic Eye exam: Present: normal appearance. Absent: scleral icterus, conjunctival injection Neck exam: Present: normal inspection Respiratory exam: Present: normal lung sounds bilaterally. Absent: respiratory distress, wheezes, rales, rhonchi, stridor Cardiovascular Exam: Present: regular rate, normal rhythm, normal heart sounds. Absent: systolic murmur, diastolic murmur, rubs, gallop GI/Abdominal exam: Present: soft. Absent: distended, tenderness, guarding, re bound, rigid, mass Extremities exam: Present: normal inspection, normal capillary refill. Absent: pedal edema, calf tenderness Back exam: Present: normal inspection. Absent: CVA tenderness (R), CVA tenderness (L) Neurological exam: Present: alert Skin exam: Present: warm, dry, intact, normal color. Absent: rash Course Vital Signs 05/15/22 16:55 Temperature 98.5 F Pulse Rate 95 Respiratory 18 Rate Blood Pressure 130/82 O2 Sat by Pulse 96 Oximetry Medical Decision Making - Lab Data Result diagrams: 05/15/22 18:34 05/15/22 18:34 Lab Results 05/15/22 05/15/22 05/15/22 Range/Units 18:34 18:34 18:34 WBC 10.8 H (3.8-10.6) k/uL RBC 4.74 (3.80-5.40) m/uL Hgb 16.0 (11.4-16.0) gm/dL Hct 46.1 H (34.0-46.0) % MCV 97.2 (80.0-100.0) fL MCH 33.8 (25.0-35.0) pg MCHC 34.8 (31.0-37.0) g/dL RDW 13.8 (11.5-15.5) % Plt Count 170 D (150-450) k/uL MPV 9.1 Neutrophils % 67 % Lymphocytes % 20 % Monocytes % 8 % Eosinophils % 1 % Basophils % 1 % Neutrophils # 7.2 (1.3-7.7) k/uL Lymphocytes # 2.2 (1.0-4.8) k/uL Monocytes # 0.9 (0-1.0) k/uL Eosinophils # 0.1 (0-0.7) k/uL Basophils # 0.1 (0-0.2) k/uL Sodium 129 L (137-145) mmol/L Potassium 3.4 L (3.5-5.1) mmol/L Chloride 89 L (98-107) mmol/L Carbon Dioxide 23 (22-30) mmol/L Anion Gap 17 mmol/L BUN 28 H (7-17) mg/dL Creatinine 0.63 (0.52-1.04) mg/dL Est GFR (CKD-EPI)AfAm >90 (>60 ml/min/1.73 sqM) Est GFR (CKD-EPI)NonAf >90 (>60 ml/min/1.73 sqM) Glucose 101 H (74-99) mg/dL Calcium 9.1 (8.4-10.2) mg/dL Total Bilirubin 1.1 (0.2-1.3) mg/dL AST 22 (14-36) U/L ALT 14 (4-34) U/L Alkaline Phosphatase 79 (38-126) U/L Total Protein 7.1 (6.3-8.2) g/dL Albumin 4.2 (3.5-5.0) g/dL Urine Opiates Screen Not Detected (NotDetected) Ur Oxycodone Screen Not Detected (NotDetected) Urine Methadone Screen Not Detected (NotDetected) Ur Propoxyphene Screen Not Detected (NotDetected) Ur Barbiturates Screen Not Detected (NotDetected) U Tricyclic Antidepress Not Detected (NotDetected) Ur Phencyclidine Scrn Not Detected (NotDetected) Ur Amphetamines Screen Not Detected (NotDetected) U Methamphetamines Scrn Not Detected (NotDetected) U Benzodiazepines Scrn Detected H (NotDetected) Urine Cocaine Screen Not Detected (NotDetected) U Marijuana (THC) Screen Not Detected (NotDetected) Serum Alcohol <10 mg/dL Disposition Clinical Impression: Alcoholic gastritis Disposition: HOME SELF-CARE Condition: Good Instructions (If sedation given, give patient instructions): Gastritis (ED) Prescriptions: LORazepam [Ativan] 1 mg PO TID 2 Days #6 tab Famotidine [Pepcid] 20 mg PO BID #14 tablet Ondansetron Odt [Zofran ODT] 4 mg PO Q8HR PRN #10 tab PRN Reason: Nausea Is patient prescribed a controlled substance at d/c from ED?: No Referrals: Danny Ogden DO [Primary Care Provider] - 1-2 days
[2022-05-15 23:37] VITALS: BP 108/75; PULSE 96; RESP 20
== END 2022-05-15 23:16 | disposition home or self-care (01) ==
LOC: EC 16:53
DX: K29.20 Alcoholic gastritis without bleeding (principal); F13.90 Sedative, hypnotic, or anxiolytic use, unspecified, uncomplicated; I10 Essential (primary) hypertension; M19.90 Unspecified osteoarthritis, unspecified site; F17.200 Nicotine dependence, unspecified, uncomplicated; Y90.0 Blood alcohol level of less than 20 mg/100 ml; Z91.013 Allergy to seafood; Z91.041 Radiographic dye allergy status; Z88.2 Allergy status to sulfonamides
CPT/HCPCS: 36415; 80053; 85025; 80306; 99285; 96374; 96361; 96372; G0480; J2060; J3411; 80320

== ENCOUNTER 2022-06-04 22:16 | Inpatient (IN) | payer MEDICARE, OTHER ==
[2022-06-04] MEDS ORDERED: LORazepam 2 MG/ML INJ IV STA (22:45)
[2022-06-04] MEDS ORDERED: ONDANSETRON 4 MG/2 ML VIAL IVP STA (22:45)
[2022-06-04] MEDS ORDERED: SODIUM CHLORIDE 0.9% 1,000 ML IV ONE (22:46)
[2022-06-04] MEDS ORDERED: THIAMINE 100 MG/ML 2 ML VIAL IM STA (22:46)
[2022-06-04 23:21] LABS: Basophils % (A) 1 %; Eosinophils # (A) 0.2 k/uL (0-0.7); Eosinophils % (A) 3 %; HCT 50.2 % (34.0-46.0); HGB 16.5 gm/dL (11.4-16.0); Lymphocytes % (A) 37 %; MCH 32.1 pg (25.0-35.0); MCV 97.3 fL (80.0-100.0); Mean Platelet Volume 7.3; Monocytes # (A) 0.2 k/uL (0-1.0); Monocytes % (A) 3 %; Neutrophils # (A) 3.1 k/uL (1.3-7.7); Neutrophils % (A) 56 %; Platelet Count 191 k/uL (150-450); RBC 5.16 m/uL (3.80-5.40); RDW 13.2 % (11.5-15.5); WBC 5.5 k/uL (3.8-10.6)
--- NOTE | 2022-06-04 23:21 | ED ---
Nausea/Vomiting/Diarrhea HPI - General Chief complaint: Nausea/Vomiting/Diarrhea Stated complaint: nausea Time Seen by Provider: 06/04/22 22:24 Source: patient, EMS Mode of arrival: EMS Limitations: no limitations - History of Present Illness MD complaint: nausea, vomiting -: hour(s) Description of Vomiting: food contents Associated Abdominal Pain: No Consistency: constant Improves with: none Worsens with: none Context: alcohol abuse Associated Symptoms: denies other symptoms - Related Data Previous Rx's Medication Instructions Recorded Aspirin 81 mg PO DAILY tab 04/14/22 Atorvastatin [Lipitor] 20 mg PO HS #30 tablet 04/14/22 Famotidine [Pepcid] 20 mg PO BID #60 tablet 04/14/22 Metoprolol Succinate (ER) [Toprol 25 mg PO DAILY #30 tab 04/14/22 XL] Nicotine 14Mg/24Hr Patch [Habitrol] 1 patch TRANSDERM DAILY #14 patch 04/14/22 Thiamine [Vitamin B-1] 100 mg PO BID-W/MEALS #60 tab 04/14/22 Famotidine [Pepcid] 20 mg PO BID #14 tablet 05/15/22 LORazepam [Ativan] 1 mg PO TID 2 Days #6 tab 05/15/22 Ondansetron Odt [Zofran ODT] 4 mg PO Q8HR PRN #10 tab 05/15/22 Allergies Allergy/AdvReac Type Severity Reaction Status Date / Time shellfish derived [Shellfish] Allergy Severe Dyspnea Verified 06/04/22 22:22 iodine Allergy Rash/Hives Verified 06/04/22 22:22 Sulfa (Sulfonamide Allergy Rash/Hives Verified 06/04/22 22:22 Antibiotics) Review of Systems ROS Statement: Those systems with pertinent positive or pertinent negative responses have been documented in the HPI. ROS Other: All systems not noted in ROS Statement are negative. Constitutional: Denies: fever, chills Respiratory: Denies: cough, dyspnea Cardiovascular: Denies: chest pain, palpitations Gastrointestinal: Reports: nausea, vomiting. Denies: abdominal pain, diarrhea, constipation, hematemesis, melena, hematochezia Genitourinary: Denies: dysuria, hematuria Musculoskeletal: Denies: back pain Skin: Denies: rash Neurological: Denies: headache, weakness, numbness Past Medical History Past Medical History: Hypertension, Osteoarthritis (OA) Additional Past Medical History / Comment(s): Fall September 2019 with neck injury/L arm weak/decreased sensation and weakness to L leg-sent to [facility] and had cervical surgery, chronic cervical/L shoulder pain since surgery, chronic low back pain for years, ETOH abuse-pt states she has had withdrawa ls/shaking/weakness/nausea/one seizure long ago, alcoholic hepatitis, 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 History of Any Multi-Drug Resistant Organisms: None Reported Past Surgical History: Back Surgery Additional Past Surgical History / Comment(s): Cervical surgery at [facility] d/t injury, colonoscopies/benign polypectomy Past Anesthesia/Blood Transfusion Reactions: No Reported Reaction, Motion Sick ness Additional Past Anesthesia/Blood Transfusion Reaction / Comment(s): PT has clausterphobia. Past Psychological History: Anxiety, Depression Smoking Status: Current every day smoker Past Alcohol Use History: Abuse, Daily, Occasional Past Drug Use History: None Reported - Past Family History Mother Family Medical History: Cancer Additional Family Medical History / Comment(s): Mother of melanoma Father Family Medical History: No Reported History Additional Family Medical History / Comment(s): Father is healthy General Exam Limitations: no limitations General appearance: alert, in no apparent distress Head exam: Present: atraumatic, normocephalic Eye exam: Present: normal appearance. Absent: scleral icterus, conjunctival injection ENT exam: Present: normal oropharynx Neck exam: Present: normal inspection, full ROM. Absent: tenderness Respiratory exam: Present: normal lung sounds bilaterally. Absent: respiratory distress, wheezes, rales, rhonchi, stridor Cardiovascular Exam: Present: regular rate, normal rhythm, normal heart sounds. Absent: systolic murmur, diastolic murmur, rubs, gallop GI/Abdominal exam: Present: soft. Absent: distended, tenderness, guarding, rebound, rigid, mass Extremities exam: Present: normal inspection, normal capillary refill. Absent: pedal edema, calf tenderness Back exam: Present: normal inspection. Absent: CVA tenderness (R), CVA tenderness (L) Neurological exam: Present: alert Skin exam: Present: warm, dry, intact, normal color. Absent: rash Course Vital Signs 06/04/22 06/05/2206/05/22 22:18 02:22 04:00 Temperature 98.3 F 98.4 F Pulse Rate 103 H 99 79 Respiratory 22 20 20 Rate Blood Pressure 138/98 140/78 138/84 O2 Sat by Pulse 96 98 97 Oximetry Medical Decision Making - Lab Data Result diagrams: 06/04/22 23:07 06/04/22 23:07 Lab Results 06/04/22 06/04/22 06/04/22 Range/Units 23:07 23:07 23:07 WBC 5.5 (3.8-10.6) k/uL RBC 5.16 (3.80-5.40) m/uL Hgb 16.5 H (11.4-16.0) gm/dL Hct 50.2 H (34.0-46.0) % MCV 97.3 (80.0-100.0) fL MCH 32.1 (25.0-35.0) pg MCHC 33.0 (31.0-37.0) g/dL RDW 13.2 (11.5-15.5) % Plt Count 191 (150-450) k/uL MPV 7.3 Neutrophils % 56 % Lymphocytes % 37 % Monocytes % 3 % Eosinophils % 3 % Basophils % 1 % Neutrophils # 3.1 (1.3-7.7) k/uL Lymphocytes # 2.0 (1.0-4.8) k/uL Monocytes # 0.2 (0-1.0) k/uL Eosinophils # 0.2 (0-0.7) k/uL Basophils # 0.0 (0-0.2) k/uL Sodium (137-145) mmol/L Potassium (3.5-5.1) mmol/L Chloride (98-107) mmol/L Carbon Dioxide (22-30) mmol/L Anion Gap mmol/L BUN (7-17) mg/dL Creatinine (0.52-1.04) mg/dL Est GFR (CKD-EPI)AfAm (>60 ml/min/1.73 sqM) Est GFR (CKD-EPI)NonAf (>60 ml/min/1.73 sqM) Glucose (74-99) mg/dL Lactic Ac Sepsis Rflx Plasma Lactic Acid Samuel 4.4 H* (0.7-2.0) mmol/L Calcium (8.4-10.2) mg/dL Magnesium (1.6-2.3) mg/dL Total Bilirubin (0.2-1.3) mg/dL AST (14-36) U/L ALT (4-34) U/L Alkaline Phosphatase (38-126) U/L Troponin I <0.012 (0.000-0.034) ng/mL Total Protein (6.3-8.2) g/dL Albumin (3.5-5.0) g/dL Amylase (30-110) U/L Lipase (23-300) U/L Serum Alcohol mg/dL 06/04/22 06/04/22 06/04/22 Range/Units 23:07 23:07 23:41 WBC (3.8-10.6) k/uL RBC (3.80-5.40) m/uL Hgb (11.4-16.0) gm/dL Hct (34.0-46.0) % MCV (80.0-100.0) fL MCH (25.0-35.0) pg MCHC (31.0-37.0) g/dL RDW (11.5-15.5) % Plt Count (150-450) k/uL MPV Neutrophils % % Lymphocytes % % Monocytes % % Eosinophils % % Basophils % % Neutrophils # (1.3-7.7) k/uL Lymphocytes # (1.0-4.8) k/uL Monocytes # (0-1.0) k/uL Eosinophils # (0-0.7) k/uL Basophils # (0-0.2) k/uL Sodium 141 (137-145) mmol/L Potassium 4.0 (3.5-5.1) mmol/L Chloride 98 (98-107) mmol/L Carbon Dioxide 17 L (22-30) mmol/L Anion Gap 26 mmol/L BUN 5 L (7-17) mg/dL Creatinine 0.46 L (0.52-1.04) mg/dL Est GFR (CKD-EPI)AfAm >90 (>60 ml/min/1.73 sqM) Est GFR (CKD-EPI)NonAf >90 (>60 ml/min/1.73 sqM) Glucose 119 H (74-99) mg/dL Lactic Ac Sepsis Rflx Y Plasma Lactic Acid Samuel (0.7-2.0) mmol/L Calcium 9.0 (8.4-10.2) mg/dL Magnesium 1.7 (1.6-2.3) mg/dL Total Bilirubin 0.3 (0.2-1.3) mg/dL AST 28 (14-36) U/L ALT 14 (4-34) U/L Alkaline Phosphatase 73 (38-126) U/L Troponin I (0.000-0.034) ng/mL Total Protein 7.8 (6.3-8.2) g/dL Albumin 4.8 (3.5-5.0) g/dL Amylase 65 (30-110) U/L Lipase 94 (23-300) U/L Serum Alcohol 388 H* mg/dL 06/05/22 06/05/22 Range/Units 01:56 02:36 WBC (3.8-10.6) k/uL RBC (3.80-5.40) m/uL Hgb (11.4-16.0) gm/dL Hct (34.0-46.0) % MCV (80.0-100.0) fL MCH (25.0-35.0) pg MCHC (31.0-37.0) g/dL RDW (11.5-15.5) % Plt Count (150-450) k/uL MPV Neutrophils % % Lymphocytes % % Monocytes % % Eosinophils % % Basophils % % Neutrophils # (1.3-7.7) k/uL Lymphocytes # (1.0-4.8) k/uL Monocytes # (0-1.0) k/uL Eosinophils # (0-0.7) k/uL Basophils # (0-0.2) k/uL Sodium (137-145) mmol/L Potassium (3.5-5.1) mmol/L Chloride (98-107) mmol/L Carbon Dioxide (22-30) mmol/L Anion Gap mmol/L BUN (7-17) mg/dL Creatinine (0.52-1.04) mg/dL Est GFR (CKD-EPI)AfAm (>60 ml/min/1.73 sqM) Est GFR (CKD-EPI)NonAf (>60 ml/min/1.73 sqM) Glucose (74-99) mg/dL Lactic Ac Sepsis Rflx Y Plasma Lactic Acid Samuel 3.8 H* (0.7-2.0) mmol/L Calcium (8.4-10.2) mg/dL Magnesium (1.6-2.3) mg/dL Total Bilirubin (0.2-1.3) mg/dL AST (14-36) U/L ALT (4-34) U/L Alkaline Phosphatase (38-126) U/L Troponin I (0.000-0.034) ng/mL Total Protein (6.3-8.2) g/dL Albumin (3.5-5.0) g/dL Amylase (30-110) U/L Lipase (23-300) U/L Serum Alcohol mg/dL Disposition Clinical Impression: Alcohol intoxication Disposition: ADMITTED IP TO THIS HOSP Condition: Fair Is patient prescribed a controlled substance at d/c from ED?: No
[2022-06-04 23:34] LABS: Magnesium 1.7 mg/dL (1.6-2.3)
[2022-06-05] MEDS ORDERED: ONDANSETRON 4 MG/2 ML VIAL IVP STA (00:26)
[2022-06-05] MEDS ORDERED: LORazepam 2 MG/ML INJ IV STA (00:26)
[2022-06-05 03:47] LABS: ALT 14 U/L (4-34); AST 28 U/L (14-36); African American GFR (CKD) >90 (>60 ml/min/1.73 sqM); Albumin 4.8 g/dL (3.5-5.0); Alkaline Phosphatase 73 U/L (38-126); Amylase 65 U/L (30-110); Anion Gap 26 mmol/L; Blood Urea Nitrogen 5 mg/dL (7-17); Carbon Dioxide 17 mmol/L (22-30); Chloride 98 mmol/L (98-107); Glucose 119 mg/dL (74-99); Lipase 94 U/L (23-300); Non-African American GFR(CKD) >90 (>60 ml/min/1.73 sqM); Sodium 141 mmol/L (137-145); Total Bilirubin 0.3 mg/dL (0.2-1.3); Total Protein 7.8 g/dL (6.3-8.2)
[2022-06-05] MEDS ORDERED: NALOXONE 0.4 MG/ML 1 ML VIAL IV PRN (04:04)
[2022-06-05] MEDS ORDERED: MAG HYDROX/AL HYDROX/SIMETH 30 ML CUP PO PRN (04:04)
[2022-06-05] MEDS ORDERED: LORazepam 2 MG/ML INJ IV PRN ×3 (04:06)
[2022-06-05] MEDS: SODIUM CHLORIDE 0.9% 1,000 ML IV SCH ×3 (04:13→19:56)
[2022-06-05 07:55] LABS: Appearance,Urine Cloudy (Clear); Bacteria,Urine Rare /hpf; Bilirubin,Urine Negative (Negative); Blood,Urine Negative (Negative); Color,Urine Yellow; Glucose,Urine (UA) Negative (Negative); Ketones,Urine Trace (Negative); Leukocyte Esterase,Urine Small (Negative); Mucus,Urine Occasional /hpf; Nitrite,Urine Negative (Negative); PH, Urine 6.5 (5.0-8.0); Protein,Urine 1+ (Negative); RBC,Urine <1 /hpf (0-5); Specific Gravity,Urine 1.015 (1.001-1.035); Squamous Epithelial Cell,Urine 2 /hpf (0-4); Urobilinogen,Urine <2.0 mg/dL (<2.0); WBC,Urine 24 /hpf (0-5)
[2022-06-05] MEDS ORDERED: FAMOTIDINE 20 MG TAB PO SCH (09:00)
[2022-06-05] MEDS ORDERED: diazePAM 5 MG TAB PO SCH (09:00)
[2022-06-05] MEDS ORDERED: diazePAM 2 MG TAB PO STA (11:44)
[2022-06-05] MEDS ORDERED: CALCIUM CARBONATE 500 MG CHEWABLE PO PRN (11:45)
[2022-06-05] MEDS ORDERED: LACTULOSE 20 GM/30 ML CUP PO PRN (11:45)
[2022-06-05] MEDS: ENOXAPARIN 40 MG/0.4 ML SYRINGE SQ SCH (12:07)
[2022-06-05] MEDS: METOPROLOL SUCCINATE (ER) 25 MG TAB.ER.24H PO SCH (12:08)
[2022-06-05] MEDS: NICOTINE 14MG/24HR PATCH TRANSDERM SCH (12:08)
[2022-06-05] MEDS: CALCIUM CARBONATE LIQUID 500 MG/5 ML CUP PO SCH ×2 (13:07→17:17)
[2022-06-05] MEDS: diazePAM 5 MG TAB PO SCH ×2 (15:54→21:53)
[2022-06-05] MEDS: THIAMINE 100 MG TAB PO SCH (17:17)
--- NOTE | 2022-06-05 17:27 | P.HPIM ---
History of Present Illness H&P Date: 06/05/22 Chief Complaint: Alcohol withdrawal History of presenting complaint: This is a 62-year-old patient, follows with Dr. Ogden . 2019. following a fall for alcohol intoxication. found to have a spinal cord concussion and transferred out to [facility]. undergo surgery at [facility] was then in rehab. Did well subsequently. Patient subsequently has gone back on drinking excessive alcohol. Patient's had multiple admissions for alcohol intoxication. Chronic stable conditions include gastritis, esophagitis, alcohol use disorder, alcoholic myopathy. Baseline uses a walker. April 2022 had a normal cardiac catheterization Patient now presents with alcohol withdrawals. Has gone back to drinking about 2 points. He said his stopped drinking 2 days ago. Started having severe withdrawals. Shaking tremulousness anxious protein. Put on CIWA scale Valium. Upper abdominal discomfort that is chronically present. No visual hallucinations. Review of systems: GEN.: Tired EYES: None HEENT: None NECK: None RESPIRATORY: baseline shortness of breath CARDIOVASCULAR: None GASTROINTESTINAL: As above GENITOURINARY: None MUSCULOSKELETAL: Chronic joint pains, muscle weakness LYMPHATICS: None HEMATOLOGICAL: As above PSYCHIATRY: Anxious NEUROLOGICAL: Tremors. Past medical history to include: Spinal cord concussion secondary to fall, alcohol use disorder, chronic nicotine dependence, gastritis, esophagitis, alcoholic myopathy, normal cardiac catheterization April 2022 Social history: Lives with her ,'s drinks at least one-to pint of whiskey a day, smoking variable amounts since 1997 Family history: Mother of melanoma Physical examination: VITAL SIGNS: 98.3, 110, 19, 148/90, 94% room air GENERAL: laying in bed, anxious, shaking EYES: Pupils equal. Conjunctiva normal. HEENT: External appearance of nose and ears normal, oral cavity grossly normal. NECK: JVD not raised; masses not palpable. HEART: First and second heart sounds are normal; no edema. LUNGS:[ Respiratory rate increased; decreased breath sounds, wheezing ABDOMEN: Soft, mildly epigastric tenderness, no guarding rigidity liver spleen not palpable, no masses palpable. PSYCH: AO 3, motor affect very anxious NEUROLOGICAL: Cranial nerves grossly intact; no facial asymmetry, power and sensation grossly intact. Significant shaking INVESTIGATIONS, reviewed in the clinical context: WBC 5.5 hemoglobin 16.5 platelets 191 potassium 4 BUN 5 creatinine 0.46 Lactic acid 4.4 Serum alcohol 388 Assessment and plan: -Acute severe alcohol withdrawal syndrome Valium 7.5 mg by mouth every 8 hours. CIWA scale -Chronic gastritis/esophagitis, from continued alcohol intake PPI. -Acute alcohol intoxication, -Type II lactic acidosis. No clinical evidence of sepsis -Alcohol use disorder -Chronic nicotine dependence, patient's cigarette smoker Nicotine patch -Chronic left shoulder pain Pain controlled -Alcoholic myopathy, causing chronic gait dysfunction Fall precautions. 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 Uses a walker Valium 7.5 mg every 8. CIWA scale. PPI. Tums. Fall precautions. Nicotine patch. Discussed with patient. 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 History of Any Multi-Drug Resistant Organisms: None Reported Past Surgical History: Back Surgery Additional Past Surgical History / Comment(s): Cervical surgery at [facility] d/t injury, colonoscopies/benign polypectomy Past Anesthesia/Blood Transfusion Reactions: No Reported Reaction, Motion Sickness Additional Past Anesthesia/Blood Transfusion Reaction / Comment(s): PT has clausterphobia. Past Psychological History: Anxiety, Depression Smoking Status: Current every day smoker Past Alcohol Use History: Abuse, Daily, Occasional Past Drug Use History: None Reported - Past Family History Mother Family Medical History: Cancer Additional Family Medical History / Comment(s): Mother of melanoma Father Family Medical History: No Reported History Additional Family Medical History / Comment(s): Father is healthy Medications and Allergies Home Medications Medication Instructions Recorded Confirmed Type Aspirin 81 mg PO DAILY tab 04/14/22 06/05/22 Rx Atorvastatin [Lipitor] 20 mg PO HS #30 tablet 04/14/22 06/05/22 Rx Metoprolol Succinate (ER) [Toprol 25 mg PO DAILY #30 tab 04/14/22 06/05/22 Rx XL] Nicotine 14Mg/24Hr Patch [Habitrol] 1 patch TRANSDERM DAILY #14 patch 04/14/22 06/05/22 Rx Thiamine [Vitamin B-1] 100 mg PO BID-W/MEALS #60 tab 04/14/22 06/05/22 Rx Famotidine [Pepcid] 20 mg PO BID #14 tablet 05/15/22 06/05/22 Rx LORazepam [Ativan] 1 mg PO TID 2 Days #6 tab 05/15/22 06/05/22 Rx Ondansetron Odt [Zofran ODT] 4 mg PO Q8HR PRN #10 tab 05/15/22 06/05/22 Rx Allergies Allergy/AdvReac Type Severity Reaction Status Date / Time shellfish derived [Shellfish] Allergy Severe Dyspnea Verified 06/05/22 11:24 iodine Allergy Rash/Hives Verified 06/05/22 11:24 Sulfa (Sulfonamide Allergy Rash/Hives Verified 06/05/22 11:24 Antibiotics) Physical Exam Vitals: Vital Signs Temp Pulse Pulse Resp BP BP Pulse Ox 06/05/22 07:00 98.3 F 110 H 19 148/90 94 L 06/05/22 04:00 98.4 F 79 20 138/84 97 06/05/22 02:22 99 20 140/78 98 06/04/22 22:18 98.3 F 103 H 22 138/98 96 Intake and Output 06/04/22 06/05/22 06/05/22 22:59 06:59 14:59 Other: # Voids 1 Weight 72.575 kg 72.575 kg Results CBC & Chem 7: 06/04/22 23:07 06/04/22 23:07 Labs: Abnormal Lab Results - Last 24 Hours (Table) 06/04/22 06/04/22 06/04/22 Range/Units 23:07 23:07 23:07 Hgb 16.5 H (11.4-16.0) gm/dL Hct 50.2 H (34.0-46.0) % Carbon Dioxide (22-30) mmol/L BUN (7-17) mg/dL Creatinine (0.52-1.04) mg/dL Glucose (74-99) mg/dL Plasma Lactic Acid Samuel 4.4 H* (0.7-2.0) mmol/L Urine Appearance (Clear) Urine Protein (Negative) Urine Ketones (Negative) Ur Leukocyte Esterase (Negative) Urine WBC (0-5) /hpf Urine Bacteria (None) /hpf Urine Mucus (None) /hpf Serum Alcohol 388 H* mg/dL 06/04/22 06/05/22 06/05/22 Range/Units 23:07 01:56 06:22 Hgb (11.4-16.0) gm/dL Hct (34.0-46.0) % Carbon Dioxide 17 L (22-30) mmol/L BUN 5 L (7-17) mg/dL Creatinine 0.46 L (0.52-1.04) mg/dL Glucose 119 H (74-99) mg/dL Plasma Lactic Acid Samuel 3.8 H* 3.2 H* (0.7-2.0) mmol/L Urine Appearance (Clear) Urine Protein (Negative) Urine Ketones (Negative) Ur Leukocyte Esterase (Negative) Urine WBC (0-5) /hpf Urine Bacteria (None) /hpf Urine Mucus (None) /hpf Serum Alcohol mg/dL 06/05/22 Range/Units 07:38 Hgb (11.4-16.0) gm/dL Hct (34.0-46.0) % Carbon Dioxide (22-30) mmol/L BUN (7-17) mg/dL Creatinine (0.52-1.04) mg/dL Glucose (74-99) mg/dL Plasma Lactic Acid Samuel (0.7-2.0) mmol/L Urine Appearance Cloudy H (Clear) Urine Protein 1+ H (Negative) Urine Ketones Trace H (Negative) Ur Leukocyte Esterase Small H (Negative) Urine WBC 24 H (0-5) /hpf Urine Bacteria Rare H (None) /hpf Urine Mucus Occasional H (None) /hpf Serum Alcohol mg/dL Thrombosis Risk Factor Assmnt - Choose All That Apply Any of the Below Risk Factors Present?: No Other Risk Factors: No Other congenital or acquired thrombophilia - If yes, enter type in comment: No Thrombosis Risk Factor Assessment Level: Very Low Risk
[2022-06-05] MEDS: PANTOPRAZOLE 40 MG TABLET PO SCH (17:47)
[2022-06-05] MEDS: MAGNESIUM OXIDE 400 MG TAB PO SCH (19:56)
[2022-06-05] MEDS: ATORVASTATIN 20 MG TAB PO SCH (19:56)
[2022-06-05] MEDS ORDERED: MELATONIN 3 MG TABLET PO PRN (21:00)
[2022-06-06] MEDS: SODIUM CHLORIDE 0.9% 1,000 ML IV SCH ×3 (03:26→20:00)
[2022-06-06] MEDS: ACETAMINOPHEN TAB 325 MG TAB PO PRN (06:26)
[2022-06-06] MEDS: NICOTINE 14MG/24HR PATCH TRANSDERM SCH (07:14)
[2022-06-06] MEDS: THIAMINE 100 MG TAB PO SCH ×2 (07:17→17:25)
[2022-06-06] MEDS: CALCIUM CARBONATE LIQUID 500 MG/5 ML CUP PO SCH ×3 (07:17→17:25)
[2022-06-06] MEDS: PANTOPRAZOLE 40 MG TABLET PO SCH ×2 (07:18→17:25)
[2022-06-06] MEDS: METOPROLOL SUCCINATE (ER) 25 MG TAB.ER.24H PO SCH (07:18)
[2022-06-06] MEDS: diazePAM 5 MG TAB PO SCH ×3 (07:18→22:17)
[2022-06-06] MEDS: ENOXAPARIN 40 MG/0.4 ML SYRINGE SQ SCH (08:59)
[2022-06-06] MEDS: MAGNESIUM OXIDE 400 MG TAB PO SCH ×2 (08:59→20:01)
[2022-06-06] MEDS ORDERED: ASPIRIN 81 MG PO SCH (09:00)
[2022-06-06] MEDS: SODIUM BICARBONATE TAB 650 MG TAB PO SCH ×3 (11:18→20:01)
--- NOTE | 2022-06-06 12:42 | P.PN ---
Progress Note - Text Progress Note Date: 06/06/22 Chief Complaint: Alcohol withdrawal History of presenting complaint: This is a 62-year-old patient, follows with Dr. Ogden . 2019. following a fall for alcohol intoxication. found to have a spinal cord concussion and transferred out to [facility]. undergo surgery at [facility] was then in rehab. Did well subsequently. Patient subsequently has gone back on drinking excessive alcohol. Patient's had multiple admissions for alcohol intoxication. Chronic stable conditions include gastritis, esophagitis, alcohol use disorder, alcoholic myopathy. Baseline uses a walker. April 2022 had a normal cardiac catheterization Patient now presents with alcohol withdrawals. Has gone back to drinking about 2 points. He said his stopped drinking 2 days ago. Started having severe withdrawals. Shaking tremulousness anxious protein. Put on CIWA scale Valium. Upper abdominal discomfort that is chronically present. No visual hallucinations. Admitted with acute severe alcohol withdrawal syndrome, gastritis, acute alcohol intoxication and type II lactic acidosis. Put on Valium. Lopressor. CIWA scale. Liquid diet. June 06: Some improvement in tremors. A bit less anxious. Cutback Valium to 5 mg every 8. Have the patient sit up in a chair. Keep on full liquid diet Active Medications Acetaminophen (Acetaminophen Tab 325 Mg Tab) 650 mg PO Q6HR PRN PRN Reason: Mild Pain or Fever > 100.5 Last Admin: 06/06/22 06:26 Dose: 650 mg Al Hydroxide/Mg Hydroxide (Mag Hydrox/Al Hydrox/Simeth 30 Ml Cup) 15 ml PO Q6HR PRN PRN Reason: Indigestion Atorvastatin Calcium (Atorvastatin 20 Mg Tab) 20 mg PO [facility] Last Admin: 06/05/22 19:56 Dose: 20 mg Calcium Carbonate/Glycine (Calcium Carbonate 500 Mg Chewable) 1,000 mg PO Q4HR PRN PRN Reason: Dyspepsia Calcium Carbonate/Glycine (Calcium Carbonate Liquid 500 Mg/5 Ml Cup) 500 mg PO TID-W/MEALS [facility] Last Admin: 06/06/22 12:31 Dose: 500 mg Diazepam (Diazepam 5 Mg Tab) 5 mg PO TID [facility] Enoxaparin Sodium (Enoxaparin 40 Mg/0.4 Ml Syringe) 40 mg SQ DAILY [facility] Last Admin: 06/06/22 08:59 Dose: 40 mg Sodium Chloride (Saline 0.9%) 1,000 mls @ 130 mls/hr IV .Q7H42M [facility] Last Admin: 06/06/22 11:19 Dose: 130 mls/hr Lactulose (Lactulose 20 Gm/30 Ml Cup) 20 gm PO DAILY PRN PRN Reason: Constipation Lorazepam (Lorazepam 2 Mg/Ml Inj) 1 mg IV Q2HR PRN PRN Reason: CIWA 8 or 9 Last Admin: 06/05/22 06:01 Dose: 1 mg Lorazepam (Lorazepam 2 Mg/Ml Inj) 1 mg IV Q1HR PRN PRN Reason: CIWA 10 to 15 Lorazepam (Lorazepam 2 Mg/Ml Inj) 2 mg IV Q10M PRN PRN Reason: CIWA 16 or higher Stop: 06/07/22 04:06 Last Admin: 06/05/22 04:12 Dose: 2 mg Magnesium Oxide (Magnesium Oxide 400 Mg Tab) 400 mg PO BID [facility] Last Admin: 06/06/22 08:59 Dose: 400 mg Melatonin (Melatonin 3 Mg Tablet) 3 mg PO HS PRN PRN Reason: Insomnia Metoprolol Succinate (Metoprolol Succinate (Er) 25 Mg Tab.Er.24h) 25 mg PO DAILY [facility] Last Admin: 06/06/22 07:18 Dose: 25 mg Naloxone HCl (Naloxone 0.4 Mg/Ml 1 Ml Vial) 0.2 mg IV Q2M PRN PRN Reason: Opioid Reversal Nicotine (Nicotine 14mg/24hr Patch) 1 patch TRANSDERM DAILY [facility] Last Admin: 06/06/22 07:14 Dose: Not Given Pantoprazole Sodium (Pantoprazole 40 Mg Tablet) 40 mg PO AC-BID [facility] Last Admin: 06/06/22 07:18 Dose: 40 mg Sodium Bicarbonate (Sodium Bicarbonate Tab 650 Mg Tab) 650 mg PO TID [facility] Last Admin: 06/06/22 11:18 Dose: 650 mg Thiamine HCl (Thiamine 100 Mg Tab) 100 mg PO BID-W/MEALS [facility] Last Admin: 06/06/22 07:17 Dose: 100 mg Past medical history to include: Spinal cord concussion secondary to fall, alcohol use disorder, chronic nicotine dependence, gastritis, esophagitis, alcoholic myopathy, normal cardiac catheterization April 2022 Social history: Lives with her ,'s drinks at least one-to pint of whiskey a day, smoking variable amounts since 1997 Family history: Mother of melanoma Physical examination: VITAL SIGNS: 99.3, 94, 17, 155/91, 97% room air GENERAL: laying in bed, less anxious EYES: Pupils equal. Conjunctiva normal. HEENT: External appearance of nose and ears normal, oral cavity grossly normal. NECK: JVD not raised; masses not palpable. HEART: First and second heart sounds are normal; no edema. LUNGS:[ Respiratory rate increased; decreased breath sounds, wheezing ABDOMEN: Soft, mildly epigastric tenderness, no guarding rigidity liver spleen not palpable, no masses palpable. PSYCH: AO 3, motor affect anxious NEUROLOGICAL: Cranial nerves grossly intact; no facial asymmetry, power and sensation grossly intact. Decreased tremors INVESTIGATIONS, reviewed in the clinical context: WBC 5.5 hemoglobin 16.5 platelets 191 potassium 4 BUN 5 creatinine 0.46 Lactic acid 4.4 Serum alcohol 388 Assessment and plan: -Acute severe alcohol withdrawal syndrome: Slow improvement Decrease Valium 5 mg by mouth every 8 hours. CIWA scale -Acute on Chronic gastritis/esophagitis, from continued alcohol intake PPI. Tums -Acute alcohol intoxication, -Type II lactic acidosis. No clinical evidence of sepsis -Alcohol use disorder -Chronic nicotine dependence, patient's cigarette smoker Nicotine patch -Chronic left shoulder pain Pain controlled -Alcoholic myopathy, causing chronic gait dysfunction Fall precautions. 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 Uses a walker Decrease Valium to 5 mg every 8. Up in a chair. Continue liquid diet. Discussed with patient.
[2022-06-06] MEDS: ATORVASTATIN 20 MG TAB PO SCH (20:00)
[2022-06-07] MEDS: SODIUM CHLORIDE 0.9% 1,000 ML IV SCH ×3 (03:12→21:31)
[2022-06-07] MEDS: THIAMINE 100 MG TAB PO SCH ×2 (08:14→18:06)
[2022-06-07] MEDS: MAGNESIUM OXIDE 400 MG TAB PO SCH ×2 (08:14→21:27)
[2022-06-07] MEDS: ENOXAPARIN 40 MG/0.4 ML SYRINGE SQ SCH (08:14)
[2022-06-07] MEDS: SODIUM BICARBONATE TAB 650 MG TAB PO SCH ×3 (08:14→21:27)
[2022-06-07] MEDS: METOPROLOL SUCCINATE (ER) 25 MG TAB.ER.24H PO SCH (08:14)
[2022-06-07] MEDS: CALCIUM CARBONATE LIQUID 500 MG/5 ML CUP PO SCH ×3 (08:14→18:06)
[2022-06-07] MEDS: diazePAM 5 MG TAB PO SCH ×5 (08:14→21:27)
[2022-06-07] MEDS: PANTOPRAZOLE 40 MG TABLET PO SCH ×2 (08:14→18:06)
[2022-06-07] MEDS: NICOTINE 14MG/24HR PATCH TRANSDERM SCH (08:14)
[2022-06-07] MEDS: ACETAMINOPHEN TAB 325 MG TAB PO PRN (18:11)
--- NOTE | 2022-06-07 18:49 | P.PN ---
Progress Note - Text Progress Note Date: 06/07/22 Chief Complaint: Alcohol withdrawal History of presenting complaint: This is a 62-year-old patient, follows with Dr. Ogden . 2019. following a fall for alcohol intoxication. found to have a spinal cord concussion and transferred out to [facility]. undergo surgery at [facility] was then in rehab. Did well subsequently. Patient subsequently has gone back on drinking excessive alcohol. Patient's had multiple admissions for alcohol intoxication. Chronic stable conditions include gastritis, esophagitis, alcohol use disorder, alcoholic myopathy. Baseline uses a walker. April 2022 had a normal cardiac catheterization Patient now presents with alcohol withdrawals. Has gone back to drinking about 2 points. He said his stopped drinking 2 days ago. Started having severe withdrawals. Shaking tremulousness anxious protein. Put on CIWA scale Valium. Upper abdominal discomfort that is chronically present. No visual hallucinations. Admitted with acute severe alcohol withdrawal syndrome, gastritis, acute alcohol intoxication and type II lactic acidosis. Put on Valium. Lopressor. CIWA scale. Liquid diet. June 06: Some improvement in tremors. A bit less anxious. Cutback Valium to 5 mg every 8. Have the patient sit up in a chair. Keep on full liquid diet June 07: Tremor still present. Very weak. He wanted to be out of bed. PTOT consulted. Valium cutback to 2.5 mg every 8. Asking for more pain medi cines for the abdomen. Heating pad order. Did inform narcotics not indicated for gastritis. Consult GI. Active Medications Acetaminophen (Acetaminophen Tab 325 Mg Tab) 650 mg PO Q6HR PRN PRN Reason: Mild Pain or Fever > 100.5 Last Admin: 06/06/22 06:26 Dose: 650 mg Al Hydroxide/Mg Hydroxide (Mag Hydrox/Al Hydrox/Simeth 30 Ml Cup) 15 ml PO Q6HR PRN PRN Reason: Indigestion Atorvastatin Calcium (Atorvastatin 20 Mg Tab) 20 mg PO HS [facility] Last Admin: 06/05/22 19:56 Dose: 20 mg Calcium Carbonate/Glycine (Calcium Carbonate 500 Mg Chewable) 1,000 mg PO Q4HR PRN PRN Reason: Dyspepsia Calcium Carbonate/Glycine (Calcium Carbonate Liquid 500 Mg/5 Ml Cup) 500 mg PO TID-W/MEALS [facility] Last Admin: 06/06/22 12:31 Dose: 500 mg Diazepam (Diazepam 5 Mg Tab) 5 mg PO TID [facility] Enoxaparin Sodium (Enoxaparin 40 Mg/0.4 Ml Syringe) 40 mg SQ DAILY [facility] Last Admin: 06/06/22 08:59 Dose: 40 mg Sodium Chloride (Saline 0.9%) 1,000 mls @ 130 mls/hr IV .Q7H42M [facility] Last Admin: 06/06/22 11:19 Dose: 130 mls/hr Lactulose (Lactulose 20 Gm/30 Ml Cup) 20 gm PO DAILY PRN PRN Reason: Constipation Lorazepam (Lorazepam 2 Mg/Ml Inj) 1 mg IV Q2HR PRN PRN Reason: CIWA 8 or 9 Last Admin: 06/05/22 06:01 Dose: 1 mg Lorazepam (Lorazepam 2 Mg/Ml Inj) 1 mg IV Q1HR PRN PRN Reason: CIWA 10 to 15 Lorazepam (Lorazepam 2 Mg/Ml Inj) 2 mg IV Q10M PRN PRN Reason: CIWA 16 or higher Stop: 06/07/22 04:06 Last Admin: 06/05/22 04:12 Dose: 2 mg Magnesium Oxide (Magnesium Oxide 400 Mg Tab) 400 mg PO BID [facility] Last Admin: 06/06/22 08:59 Dose: 400 mg Melatonin (Melatonin 3 Mg Tablet) 3 mg PO HS PRN PRN Reason: Insomnia Metoprolol Succinate (Metoprolol Succinate (Er) 25 Mg Tab.Er.24h) 25 mg PO DAILY [facility] Last Admin: 06/06/22 07:18 Dose: 25 mg Naloxone HCl (Naloxone 0.4 Mg/Ml 1 Ml Vial) 0.2 mg IV Q2M PRN PRN Reason: Opioid Reversal Nicotine (Nicotine 14mg/24hr Patch) 1 patch TRANSDERM DAILY [facility] Last Admin: 06/06/22 07:14 Dose: Not Given Pantoprazole Sodium (Pantoprazole 40 Mg Tablet) 40 mg PO AC-BID [facility] Last Admin: 06/06/22 07:18 Dose: 40 mg Sodium Bicarbonate (Sodium Bicarbonate Tab 650 Mg Tab) 650 mg PO TID [facility] Last Admin: 06/06/22 11:18 Dose: 650 mg Thiamine HCl (Thiamine 100 Mg Tab) 100 mg PO BID-W/MEALS [facility] Last Admin: 06/06/22 07:17 Dose: 100 mg Past medical history to include: Spinal cord concussion secondary to fall, alcohol use disorder, chronic nicotine dependence, gastritis, esophagitis, alcoholic myopathy, normal cardiac catheterization April 2022 Social history: Lives with her ,'s drinks at least one-to pint of whiskey a day, smoking variable amounts since 1997 Family history: Mother of melanoma Physical examination: VITAL SIGNS: 99.3, 94, 17, 155/91, 97% room air GENERAL: laying in bed, less anxious EYES: Pupils equal. Conjunctiva normal. HEENT: External appearance of nose and ears normal, oral cavity grossly normal. NECK: JVD not raised; masses not palpable. HEART: First and second heart sounds are normal; no edema. LUNGS:[ Respiratory rate increased; decreased breath sounds, wheezing ABDOMEN: Soft, mildly epigastric tenderness, no guarding rigidity liver spleen not palpable, no masses palpable. PSYCH: AO 3, motor affect anxious NEUROLOGICAL: Cranial nerves grossly intact; no facial asymmetry, power and sensation grossly intact. Decreased tremors INVESTIGATIONS, reviewed in the clinical context: WBC 5.5 hemoglobin 16.5 platelets 191 potassium 4 BUN 5 creatinine 0.46 Lactic acid 4.4 Serum alcohol 388 Assessment and plan: -Acute severe alcohol withdrawal syndrome: Slow improvement Decrease Valium 2.5 mg by mouth every 8 hours. CIWA scale -Acute on Chronic gastritis/esophagitis, from continued alcohol intake: Uncontrolled PPI. Tums. Consult GI -Acute alcohol intoxication, -Type II lactic acidosis. No clinical evidence of sepsis -Alcohol use disorder -Chronic nicotine dependence, patient's cigarette smoker Nicotine patch -Chronic left shoulder pain Pain controlled -Alcoholic myopathy, causing chronic gait dysfunction Fall precautions. 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 Uses a walker -Acute on chronic medical debility Consult PTOT Decrease Valium to 2.5 mg every 8. PTOT. K pad. Consult GI. Patient is very weak. Might need to rehab. Not stable for discharge.
[2022-06-07 19:40] LABS: Amylase 42 U/L (30-110); Lipase 120 U/L (23-300)
[2022-06-07] MEDS: ATORVASTATIN 20 MG TAB PO SCH (21:29)
[2022-06-08] MEDS: SODIUM CHLORIDE 0.9% 1,000 ML IV SCH ×4 (04:01→23:10)
[2022-06-08] MEDS ORDERED: FERROUS SULFATE 325 MG TAB PO SCH (07:30)
[2022-06-08] MEDS: diazePAM 5 MG TAB PO SCH (08:21)
[2022-06-08] MEDS: PANTOPRAZOLE 40 MG TABLET PO SCH ×2 (08:22→16:13)
[2022-06-08] MEDS: THIAMINE 100 MG TAB PO SCH ×2 (08:22→16:13)
[2022-06-08] MEDS: MAGNESIUM OXIDE 400 MG TAB PO SCH ×2 (08:22→19:34)
[2022-06-08] MEDS: SODIUM BICARBONATE TAB 650 MG TAB PO SCH ×3 (08:22→19:34)
[2022-06-08] MEDS: CALCIUM CARBONATE LIQUID 500 MG/5 ML CUP PO SCH ×3 (08:22→16:13)
[2022-06-08] MEDS: NICOTINE 14MG/24HR PATCH TRANSDERM SCH (08:23)
[2022-06-08] MEDS: ENOXAPARIN 40 MG/0.4 ML SYRINGE SQ SCH (08:23)
[2022-06-08] MEDS: METOPROLOL SUCCINATE (ER) 25 MG TAB.ER.24H PO SCH (08:27)
--- NOTE | 2022-06-08 09:47 | P.CONS ---
History of Present Illness - Reason for Consult Consult date: 06/08/22 Abdominal pain Requesting physician: Oswaldo Rush - Chief Complaint Alcohol intoxication/withdrawal - History of Present Illness This is 62-year-old female with a long-standing history of alcohol abuse. Patient has had several admissions for alcohol intoxication, fall, withdrawal. Serum alcohol level was 388 on admission. Patient states she is drinking very heavily over the last 5 years duration at least a pint or more day. She's been complaining of upper abdominal discomfort across her upper stomach, states it feels like a vice. She reports the pain started before she was admitted to the hospital, she states she's not sure how long she's even been here. She has no associated nausea or vomiting with the pain, states only has nausea and vomiting when she is going through withdrawal. She had an EGD done by Dr. Matos on 08/17/2021 that some esophagitis. There was no evidence of any significant upper GI bleed. She is currently on Protonix 40 mg twice a day. No current labs available. Admitting labs: WBC 5.5 he hemoglobin 16.5 hematocrit 50 platelet count 191,000 sodium 141 potassium 4.0B15 creatinine 0.46 plasma lactic acid 4.4, down to 2.0 total bilirubin 0.3 AST 28 AST 14 alkaline phosphatase 73 amylase 65 lipase 94 Review of Systems REVIEW OF SYSTEMS: CARDIOPULMONARY: No chest pain or shortness of breath. Gastrointestinal: Upper abdominal pain. No nausea or vomiting. No hematemesis, coffee-ground emesis. No rectal bleeding, or melena. GENITOURINARY: No dysuria or hematuria. MUSCULOSKELETAL: Reports normal range of motion. SKIN: No rashes. No jaundice. ENDOCRINE: No chills, fevers. No excessive weight gain or loss. No polydipsia or polyuria. PSYCHIATRIC: Unremarkable. NEUROLOGY: No change in mental status. Denies dizziness, headache. ENT: Vision unremarkable. CONSTITUTIONAL: No recent weight loss. No fever, chills, night sweats. Patient going through withdrawal symptoms, shaky. Past Medical History Past Medical History: Hypertension, Osteoarthritis (OA) Additional Past Medical History / Comment(s): Fall September 2019 with neck injury/L arm weak/decreased sensation and weakness to L leg-sent to [facility] and had cervical surgery, chronic cervical/L shoulder pain since surgery, chronic low back pain for years, ETOH abuse-pt states she has had withdrawals/shaking/weakness/nausea/one seizure long ago, alcoholic hepatitis, 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 History of Any Multi-Drug Resistant Organisms: None Reported Past Surgical History: Back Surgery Additional Past Surgical History / Comment(s): Cervical surgery at [facility] d/t injury, colonoscopies/benign polypectomy Past Anesthesia/Blood Transfusion Reactions: No Reported Reaction, Motion Sickness Additional Past Anesthesia/Blood Transfusion Reaction / Comm: PT has clausterphobia. Past Psychological History: Anxiety, Depression Smoking Status: Current every day smoker Past Alcohol Use History: Abuse, Daily, Occasional Past Drug Use History: None Reported - Past Family History Mother Family Medical History: Cancer Additional Family Medical History / Comment(s): Mother of melanoma Father Family Medical History: No Reported History Additional Family Medical History / Comment(s): Father is healthy Medications and Allergies Home Medications Medication Instructions Recorded Confirmed Type Aspirin 81 mg PO DAILY tab 04/14/22 06/05/22 Rx Atorvastatin [Lipitor] 20 mg PO HS #30 tablet 04/14/22 06/05/22 Rx Metoprolol Succinate (ER) [Toprol 25 mg PO DAILY #30 tab 04/14/22 06/05/22 Rx XL] Nicotine 14Mg/24Hr Patch [Habitrol] 1 patch TRANSDERM DAILY #14 patch 04/14/22 06/05/22 Rx Thiamine [Vitamin B-1] 100 mg PO BID-W/MEALS #60 tab 04/14/22 06/05/22 Rx Famotidine [Pepcid] 20 mg PO BID #14 tablet 05/15/22 06/05/22 Rx LORazepam [Ativan] 1 mg PO TID 2 Days #6 tab 05/15/22 06/05/22 Rx Ondansetron Odt [Zofran ODT] 4 mg PO Q8HR PRN #10 tab 05/15/22 06/05/22 Rx Allergies Allergy/AdvReac Type Severity Reaction Status Date / Time shellfish derived [Shellfish] Allergy Severe Dyspnea Verified 06/05/22 11:24 iodine Allergy Rash/Hives Verified 06/05/22 11:24 Sulfa (Sulfonamide Allergy Rash/Hives Verified 06/05/22 11:24 Antibiotics) Physical Exam Vitals: Vital Signs Temp Pulse Resp BP BP Pulse Ox 06/08/22 07:04 98.1 F 79 16 176/99 98 06/08/22 02:26 98.9 F 80 18 169/101 96 06/07/22 20:00 99.0 F 86 16 149/93 96 06/07/22 14:07 98.7 F 83 17 159/93 96 Intake and Output 06/07/22 06/08/22 06/08/22 22:59 06:59 14:59 Other: Voiding Method Toilet # Voids 2 # Bowel Movements 1 General appearance: The patient is alert, oriented, appears in no acute distress. HET: Head is normocephalic and atraumatic. Conjunctiva pink. Sclera anicteric. Neck: Supple without lymphadenopathy. Trachea midline. Heart: S1 S2. Regular rate and rhythm. Lungs: Clear to auscultation. Abdomen: Soft, mild tenderness along the upper abdomen, nondistended with bowel sounds. No guarding or rigidity. Skin: No rashes. No jaundice. Extremities: Normal skin color and turgor. No pedal edema. Neurological: No focal deficits. Alert and oriented x3. Results CBC & Chem 7: 06/04/22 23:07 06/04/22 23:07 Assessment and Plan (1) Abdominal pain Narrative/Plan: 62-year-old female with significant alcohol abuse, admitted several times for alcohol intoxication and withdrawal symptoms. Patient was admitted 4 days ago with alcohol withdrawal symptoms and was intoxicated at that time. She drinks at least a pint a day for over 5 years duration now. No associated nausea or vomiting. States pain is across the entire upper abdomen. Labs are unremarkable. Had EGD September 2020 showing esophagitis. Unclear etiology however likely alcoholic gastritis. Discussed importance of alcohol abstinence. Continue Protonix 40 mg twice a day. Current Visit: No Status: Acute Code(s): R10.9 - UNSPECIFIED ABDOMINAL PAIN SNOMED Code(s): 85919785 (2) Alcohol intoxication Current Visit: Yes Status: Acute Code(s): F10.929 - ALCOHOL USE, UNSPECIFIED WITH INTOXICATION, UNSPECIFIED SNOMED Code(s): 53702711 (3) Alcohol withdrawal Current Visit: No Status: Acute Code(s): F10.239 - ALCOHOL DEPENDENCE WITH WITHDRAWAL, UNSPECIFIED SNOMED Code(s): 370991501 Plan: 1. Continue symptomatic and supportive care 2. Continue CIWA protocol 3. Continue Protonix 40 mg twice a day 4. Alcohol abstinence 5. Further recommendations forthcoming based on clinical course Thank you for this consultation, we will continue to follow. Dr. Alexa Samayoa I agree with the dictator's note, documented as a scribe by Aspen Martinez.
[2022-06-08] MEDS: ACETAMINOPHEN TAB 325 MG TAB PO PRN (12:06)
--- NOTE | 2022-06-08 12:54 | P.CONS ---
History of Present Illness - Chief Complaint Medical debility - History of Present Illness I had the opportunity to see patient for inpatient rehab consultation regard to medical debility. Patient admitted to Dr. Rush June 04 with nausea, emesis, diarrhea, alcohol intoxication and withdrawal. Seen by Dr. Duncan for surgical evaluation and abdominal pain. PT reports supervision for bed mobility, transfer, gait 150 feet with roller walker. OT prescribed. I do not find diagnostic tests reports on chart. Previous functional history as elicited patient: 62-year-old right-handed white female who is lives in one floor home with . Reports that they share the cooking, laundry, driving. Both are retired. Patient describes independent with sitdown shower and gait with roller walker otherwise. PCP Dr. Ogden. Reports that she just quit smoking about a month ago. History of alcohol. Review of Systems Review of systems: ENT: Denies sneezes or discharge. Eyes: Denies discharge or photophobia. Cardiac: Denies chest pain or palpitation. Pulmonary: Denies cough or shortness of breath. Breast: Denies discharge or lumps. Gastrointestinal: Denies nausea, emesis, constipation, diarrhea. Genitourinary: Denies discharge or frequency. Musculoskeletal: Denies muscle or bone aches. Neurologic: Denies motor or sensory change. Endocrine: Denies shakes or sweats. Oncology: Denies cancers. Dermatologic: Denies rash, itching, pruritus. ALLERGY/immunology: Denies sneezes, rashes. Past Medical History Past Medical History: Hypertension, Osteoarthritis (OA) Additional Past Medical History / Comment(s): Fall September 2019 with neck injury/L arm weak/decreased sensation and weakness to L leg-sent to [facility] and had cervical surgery, chronic cervical/L shoulder pain since surgery, chronic low back pain for years, ETOH abuse-pt states she has had withdrawals/shaking/weakness/nausea/one seizure long ago, alcoholic hepatitis, 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 History of Any Multi-Drug Resistant Organisms: None Reported Past Surgical History: Back Surgery Additional Past Surgical History / Comment(s): Cervical surgery at [facility] d/t injury, colonoscopies/benign polypectomy Past Anesthesia/Blood Transfusion Reactions: No Reported Reaction, Motion Sickness Additional Past Anesthesia/Blood Transfusion Reaction / Comm: PT has clausterphobia. Past Psychological History: Anxiety, Depression Smoking Status: Current every day smoker Past Alcohol Use History: Abuse, Daily, Occasional Past Drug Use History: None Reported - Past Family History Mother Family Medical History: Cancer Additional Family Medical History / Comment(s): Mother of melanoma Father Family Medical History: No Reported History Additional Family Medical History / Comment(s): Father is healthy Medications and Allergies Home Medications Medication Instructions Recorded Confirmed Type Aspirin 81 mg PO DAILY tab 04/14/22 06/05/22 Rx Atorvastatin [Lipitor] 20 mg PO HS #30 tablet 04/14/22 06/05/22 Rx Metoprolol Succinate (ER) [Toprol 25 mg PO DAILY #30 tab 04/14/22 06/05/22 Rx XL] Nicotine 14Mg/24Hr Patch [Habitrol] 1 patch TRANSDERM DAILY #14 patch 04/14/22 06/05/22 Rx Thiamine [Vitamin B-1] 100 mg PO BID-W/MEALS #60 tab 04/14/22 06/05/22 Rx Famotidine [Pepcid] 20 mg PO BID #14 tablet 05/15/22 06/05/22 Rx LORazepam [Ativan] 1 mg PO TID 2 Days #6 tab 05/15/22 06/05/22 Rx Ondansetron Odt [Zofran ODT] 4 mg PO Q8HR PRN #10 tab 05/15/22 06/05/22 Rx Allergies Allergy/AdvReac Type Severity Reaction Status Date / Time shellfish derived [Shellfish] Allergy Severe Dyspnea Verified 06/05/22 11:24 iodine Allergy Rash/Hives Verified 06/05/22 11:24 Sulfa (Sulfonamide Allergy Rash/Hives Verified 06/05/22 11:24 Antibiotics) Physical Exam Vitals: Vital Signs Temp Pulse Resp BP BP Pulse Ox 06/08/22 11:59 98.2 F 79 14 152/90 97 06/08/22 07:04 98.1 F 79 16 176/99 98 06/08/22 02:26 98.9 F 80 18 169/101 96 06/07/22 20:00 99.0 F 86 16 149/93 96 06/07/22 14:07 98.7 F 83 17 159/93 96 Intake and Output 06/07/22 06/08/22 06/08/22 22:59 06:59 14:59 Other: Voiding Method Toilet # Voids 2 # Bowel Movements 1 Skin: Good color, texture, turgor. General: Thin build and comfortable appearance. Head: Normocephalic, atraumatic. Eyes: Symmetric. Pupils equal round. Ears: Symmetric. Hearing within normal limits. Mouth: Clear. Neck: Supple. Carotid without bruit. Cardiac: Regular rate and rhythm. Lungs: Clear anteriorly and posteriorly. Abdomen: Soft active nontender. Extremities: Normal tone. Neurological: Mental status: Alert, cooperative, pleasant. Cranial nerves: Symmetric facial tone and trapezius. Motor: Active movement all 4 limbs and with normal isolation. Sensation: Intact throughout. DTRs: Symmetric and equal throughout. Mobility: Did not attempt to sit or stand at this time. Results CBC & Chem 7: 06/04/22 23:07 06/04/22 23:07 Assessment and Plan (1) Alcohol intoxication Current Visit: Yes Status: Acute Code(s): F10.929 - ALCOHOL USE, UNSPECIFIED WITH INTOXICATION, UNSPECIFIED SNOMED Code(s): 41824882 (2) Abdominal pain Current Visit: No Status: Acute Code(s): R10.9 - UNSPECIFIED ABDOMINAL PAIN SNOMED Code(s): 69409843 (3) Alcohol withdrawal Current Visit: No Status: Acute Code(s): F10.239 - ALCOHOL DEPENDENCE WITH WITHDRAWAL, UNSPECIFIED SNOMED Code(s): 080795280 (4) Alcoholic gastritis Current Visit: No Status: Acute Code(s): K29.20 - ALCOHOLIC GASTRITIS WITHOUT BLEEDING SNOMED Code(s): 0394187 (5) Alcoholic ketoacidosis Current Visit: No Status: Acute Code(s): E87.2 - ACIDOSIS SNOMED Code(s): 49981305 (6) DTs (delirium tremens) Current Visit: No Status: Acute Code(s): F10.231 - ALCOHOL DEPENDENCE WITH WITHDRAWAL DELIRIUM SNOMED Code(s): 3235544 Plan: Comments and plan: At this time patient appears to be somewhat detoxed. Suspect the problem was caught quickly and will have minimal deficits. In fact PT reports no physical assist needed this time, just supervision. Await OT report. At this time however anticipate will not require full inpatient rehabilitation. Would of course require supervision upon discharge.
--- NOTE | 2022-06-08 14:02 | P.PN ---
Progress Note - Text Progress Note Date: 06/08/22 Chief Complaint: Alcohol withdrawal History of presenting complaint: This is a 62-year-old patient, follows with Dr. Ogden . 2019. following a fall for alcohol intoxication. found to have a spinal cord concussion and transferred out to [facility]. undergo surgery at [facility] was then in rehab. Did well subsequently. Patient subsequently has gone back on drinking excessive alcohol. Patient's had multiple admissions for alcohol intoxication. Chronic stable conditions include gastritis, esophagitis, alcohol use disorder, alcoholic myopathy. Baseline uses a walker. April 2022 had a normal cardiac catheterization Patient now presents with alcohol withdrawals. Has gone back to drinking about 2 points. He said his stopped drinking 2 days ago. Started having severe withdrawals. Shaking tremulousness anxious protein. Put on CIWA scale Valium. Upper abdominal discomfort that is chronically present. No visual hallucinations. Admitted with acute severe alcohol withdrawal syndrome, gastritis, acute alcohol intoxication and type II lactic acidosis. Put on Valium. Lopressor. CIWA scale. Liquid diet. June 06: Some improvement in tremors. A bit less anxious. Cutback Valium to 5 mg every 8. Have the patient sit up in a chair. Keep on full liquid diet June 07: Tremor still present. Very weak. He wanted to be out of bed. PTOT consulted. Valium cutback to 2.5 mg every 8. Asking for more pain medi cines for the abdomen. Heating pad order. Did inform narcotics not indicated for gastritis. Consult GI. June 08: Tremors better. Decreased appetite. Had a baseline patient does not eat much. Seen by GI. GB ultrasound ordered. Cutback Valium to 1 mg every 8. Seen by PT. Walked about 125 feet. Patient again counseled about alcohol and smoking. Active Medications Acetaminophen (Acetaminophen Tab 325 Mg Tab) 650 mg PO Q6HR PRN PRN Reason: Mild Pain or Fever > 100.5 Last Admin: 06/08/22 12:06 Dose: 650 mg Al Hydroxide/Mg Hydroxide (Mag Hydrox/Al Hydrox/Simeth 30 Ml Cup) 15 ml PO Q6HR PRN PRN Reason: Indigestion Atorvastatin Calcium (Atorvastatin 20 Mg Tab) 20 mg PO HS DANNI Last Admin: 06/07/22 21:29 Dose: 20 mg Calcium Carbonate/Glycine (Calcium Carbonate 500 Mg Chewable) 1,000 mg PO Q4HR PRN PRN Reason: Dyspepsia Calcium Carbonate/Glycine (Calcium Carbonate Liquid 500 Mg/5 Ml Cup) 500 mg PO TID-W/MEALS [facility] Last Admin: 06/08/22 13:05 Dose: Not Given Diazepam (Diazepam 5 Mg Tab) 2.5 mg PO TID [facility] Last Admin: 06/08/22 08:21 Dose: 2.5 mg Enoxaparin Sodium (Enoxaparin 40 Mg/0.4 Ml Syringe) 40 mg SQ DAILY [facility] Last Admin: 06/08/22 08:23 Dose: 40 mg Sodium Chloride (Saline 0.9%) 1,000 mls @ 130 mls/hr IV .Q7H42M [facility] Last Admin: 06/08/22 12:06 Dose: 130 mls/hr Lactulose (Lactulose 20 Gm/30 Ml Cup) 20 gm PO DAILY PRN PRN Reason: Constipation Lorazepam (Lorazepam 2 Mg/Ml Inj) 1 mg IV Q2HR PRN PRN Reason: CIWA 8 or 9 Last Admin: 06/05/22 06:01 Dose: 1 mg Lorazepam (Lorazepam 2 Mg/Ml Inj) 1 mg IV Q1HR PRN PRN Reason: CIWA 10 to 15 Magnesium Oxide (Magnesium Oxide 400 Mg Tab) 400 mg PO BID [facility] Last Admin: 06/08/22 08:22 Dose: 400 mg Melatonin (Melatonin 3 Mg Tablet) 3 mg PO HS PRN PRN Reason: Insomnia Last Admin: 06/06/22 22:57 Dose: 3 mg Metoprolol Succinate (Metoprolol Succinate (Er) 25 Mg Tab.Er.24h) 25 mg PO DAILY [facility] Last Admin: 06/08/22 08:27 Dose: 25 mg Naloxone HCl (Naloxone 0.4 Mg/Ml 1 Ml Vial) 0.2 mg IV Q2M PRN PRN Reason: Opioid Reversal Nicotine (Nicotine 14mg/24hr Patch) 1 patch TRANSDERM DAILY [facility] Last Admin: 06/08/22 08:23 Dose: Not Given Pantoprazole Sodium (Pantoprazole 40 Mg Tablet) 40 mg PO AC-BID [facility] Last Admin: 06/08/22 08:22 Dose: 40 mg Sodium Bicarbonate (Sodium Bicarbonate Tab 650 Mg Tab) 650 mg PO TID [facility] Last Admin: 06/08/22 08:22 Dose: 650 mg Thiamine HCl (Thiamine 100 Mg Tab) 100 mg PO BID-W/MEALS [facility] Last Admin: 06/08/22 08:22 Dose: 100 mg Past medical history to include: Spinal cord concussion secondary to fall, alcohol use disorder, chronic nicotine dependence, gastritis, esophagitis, alcoholic myopathy, normal cardiac catheterization April 2022 Social history: Lives with her ,'s drinks at least one-to pint of whiskey a day, smoking variable amounts since 1997 Family history: Mother of melanoma Physical examination: VITAL SIGNS: 98.2, 79, 14, 152/90, 97% room air GENERAL: Reclining chair, slightly anxious EYES: Pupils equal. Conjunctiva normal. HEENT: External appearance of nose and ears normal, oral cavity grossly normal. NECK: JVD not raised; masses not palpable. HEART: First and second heart sounds are normal; no edema. LUNGS:[ Respiratory rate increased; decreased breath sounds, wheezing ABDOMEN: Soft, mildly epigastric tenderness, no guarding rigidity liver spleen not palpable, no masses palpable. PSYCH: AO 3, motor affect anxious NEUROLOGICAL: Cranial nerves grossly intact; no facial asymmetry, power and sensation grossly intact. Decreased tremors INVESTIGATIONS, reviewed in the clinical context: Amylase 42 lipase 120 WBC 5.5 hemoglobin 16.5 platelets 191 potassium 4 BUN 5 creatinine 0.46 Lactic acid 4.4 Serum alcohol 388 Assessment and plan: -Acute severe alcohol withdrawal syndrome: Significant improvement Decrease Valium 1 mg by mouth every 8 hours. CIWA scale -Acute on Chronic gastritis/esophagitis, from continued alcohol intake: Uncontrolled PPI. Tums. Consult GI -Acute alcohol intoxication,: Better -Type II lactic acidosis. No clinical evidence of sepsis -Alcohol use disorder -Chronic nicotine dependence, patient's cigarette smoker Nicotine patch -Chronic left shoulder pain Pain controlled -Alcoholic myopathy, causing chronic gait dysfunction Fall precautions. 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 Uses a walker -Acute on chronic medical debility Seen by PTOT Decrease Valium to 1 mg every 8. Abdominal ultrasound ordered by GI. Did walk 125 feet. PTOT. Looking for possible discharge tomorrow. Discussed with patient.
--- NOTE | 2022-06-08 15:54 | US ---
EXAMINATION TYPE: US abdomen complete DATE OF EXAM: 06/08/2022 COMPARISON: CT 09/12/2021 CLINICAL HISTORY: abdominal pain, ETOH abuse. Generalized pain. TECHNIQUE: Multiple sonographic images of the abdomen are obtained. FINDINGS: EXAM MEASUREMENTS: Liver Length: 19.2 cm Gallbladder Wall: 0.2 cm CBD: 0.5 cm Spleen: 10.0 cm Right Kidney: 12.3 x 4.6 x 3.9 cm Left Kidney: 11.2 x 4.1 x 4.2 cm Pancreas: Tail obscured by overlying bowel gas Liver: Enlarged in size Gallbladder: Enlarged in size- 10.7 cm Evidence for sonographic Oswald's sign: neg CBD: wnl Spleen: wnl Right Kidney: No hydronephrosis or masses seen Left Kidney: No hydronephrosis or masses seen and the kidneys show normal cortical medullary differe ntiation Upper IVC: wnl Abd Aorta: No AAA visualized at time of scan The liver is coarsened echotexture. The intrahepatic portion of the IVC and visualized abdominal aor ta are within normal limits. There is no evidence of cholelithiasis. Common bile duct is unremarkab le. The visualized portions of the pancreas are homogenous. The spleen is unremarkable. Kidneys ar e symmetric and free of hydronephrosis. No renal lesions are seen. IMPRESSION: Hepatomegaly, correlate for possible hepatic steatosis. Gallbladder somewhat hydropic.
[2022-06-08] MEDS: diazePAM 2 MG TAB PO SCH ×2 (16:13→21:02)
[2022-06-08] MEDS: ATORVASTATIN 20 MG TAB PO SCH (19:34)
[2022-06-08] MEDS: METOPROLOL TARTRATE 50 MG TAB PO SCH (19:34)
[2022-06-09 03:15] VITALS: RESP 18
[2022-06-09 08:48] VITALS: BP 172/89; PULSE 85; TEMP 98.6
[2022-06-09] MEDS: THIAMINE 100 MG TAB PO SCH (09:26)
[2022-06-09] MEDS: PANTOPRAZOLE 40 MG TABLET PO SCH (09:26)
[2022-06-09] MEDS: CALCIUM CARBONATE LIQUID 500 MG/5 ML CUP PO SCH (09:26)
[2022-06-09] MEDS: ENOXAPARIN 40 MG/0.4 ML SYRINGE SQ SCH (09:27)
[2022-06-09] MEDS: SODIUM BICARBONATE TAB 650 MG TAB PO SCH (09:27)
[2022-06-09] MEDS: NICOTINE 14MG/24HR PATCH TRANSDERM SCH (09:27)
[2022-06-09] MEDS: METOPROLOL TARTRATE 50 MG TAB PO SCH (09:27)
[2022-06-09] MEDS: MAGNESIUM OXIDE 400 MG TAB PO SCH (09:27)
--- NOTE | 2022-06-09 20:52 | P.PN ---
Progress Note - Text Progress Note Date: 06/09/22 Chief Complaint: Alcohol withdrawal History of presenting complaint: This is a 62-year-old patient, follows with Dr. Ogden . 2019. following a fall for alcohol intoxication. found to have a spinal cord concussion and transferred out to [facility]. undergo surgery at [facility] was then in rehab. Did well subsequently. Patient subsequently has gone back on drinking excessive alcohol. Patient's had multiple admissions for alcohol intoxication. Chronic stable conditions include gastritis, esophagitis, alcohol use disorder, alcoholic myopathy. Baseline uses a walker. April 2022 had a normal cardiac catheterization Patient now presents with alcohol withdrawals. Has gone back to drinking about 2 points. He said his stopped drinking 2 days ago. Started having severe withdrawals. Shaking tremulousness anxious protein. Put on CIWA scale Valium. Upper abdominal discomfort that is chronically present. No visual hallucinations. Admitted with acute severe alcohol withdrawal syndrome, gastritis, acute alcohol intoxication and type II lactic acidosis. Put on Valium. Lopressor. CIWA scale. Liquid diet. June 06: Some improvement in tremors. A bit less anxious. Cutback Valium to 5 mg every 8. Have the patient sit up in a chair. Keep on full liquid diet June 07: Tremor still present. Very weak. He wanted to be out of bed. PTOT consulted. Valium cutback to 2.5 mg every 8. Asking for more pain medi cines for the abdomen. Heating pad order. Did inform narcotics not indicated for gastritis. Consult GI. June 08: Tremors better. Decreased appetite. Had a baseline patient does not eat much. Seen by GI. GB ultrasound ordered. Cutback Valium to 1 mg every 8. Seen by PT. Walked about 125 feet. Patient again counseled about alcohol and smoking. June 09: Doing much better. Valium discontinued. Eating better. Ultrasound showing hepatomegaly. Patient to follow with Dr. Mendez outpatient. Again counseled about alcohol and smoking. Discussion and discharge planning more than 35 minutes Past medical history to include: Spinal cord concussion secondary to fall, alcohol use disorder, chronic nicotine dependence, gastritis, esophagitis, alcoholic myopathy, normal cardiac ca theterization April 2022 Social history: Lives with her ,'s drinks at least one-to pint of whiskey a day, smoking variable amounts since 1997 Family history: Mother of melanoma Physical examination: VITAL SIGNS: At 8.6, 85, 18, 162/90, 98% room air GENERAL: Less anxious awake EYES: Pupils equal. Conjunctiva normal. HEENT: External appearance of nose and ears normal, oral cavity grossly normal. NECK: JVD not raised; masses not palpable. HEART: First and second heart sounds are normal; no edema. LUNGS:[ Respiratory rate increased; decreased breath sounds, ABDOMEN: Soft, mildly epigastric tenderness, no guarding rigidity liver spleen not palpable, no masses palpable. PSYCH: AO 3, motor affect anxious NEUROLOGICAL: Cranial nerves grossly intact; no facial asymmetry, power and sensation grossly intact. Decreased tremors INVESTIGATIONS, reviewed in the clinical context: Abdominal ultrasound: Hepatomegaly Amylase 42 lipase 120 WBC 5.5 hemoglobin 16.5 platelets 191 potassium 4 BUN 5 creatinine 0.46 Lactic acid 4.4 Serum alcohol 388 Assessment and plan: -Acute severe alcohol withdrawal syndrome: Improved Valium discontinued. CIWA scale -Acute on Chronic gastritis/esophagitis, from continued alcohol intake: Uncontrolled PPI. Leanne. Seen by Dr. Alexa Samayoa. Follow-up outpatient -Acute alcohol intoxication,: Better -Type II lactic acidosis. No clinical evidence of sepsis -Alcohol use disorder Consult -Chronic nicotine dependence, patient's cigarette smoker Nicotine patch -Chronic left shoulder pain Pain controlled -Essential hypertension Raised Toprol-XL 25 to twice daily. -Alcoholic myopathy, causing chronic gait dysfunction Fall precautions. 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 Uses a walker -Acute on chronic medical debility Seen by PTOT. Doing well Disposition: Home
== END 2022-06-09 09:41 | disposition home or self-care (01) | DRG 897 ==
LOC: EC 22:16 → 6NMEDSUR 06-05 04:04 → OBSVTOIN 06-07 08:34
PROVIDERS: ADMIT Hospitalist; ATTEND Hospitalist
DX: F10.229 Alcohol dependence with intoxication, unspecified (principal); E87.2 Acidosis; G72.1 Alcoholic myopathy; F10.231 Alcohol dependence with withdrawal delirium; Z87.891 Personal history of nicotine dependence; F32.A Depression, unspecified; F41.9 Anxiety disorder, unspecified; M25.512 Pain in left shoulder; G47.00 Insomnia, unspecified; M19.90 Unspecified osteoarthritis, unspecified site; M54.50 Low back pain, unspecified; G89.29 Other chronic pain; R26.9 Unspecified abnormalities of gait and mobility; F40.240 Claustrophobia; I10 Essential (primary) hypertension; K29.20 Alcoholic gastritis without bleeding; K20.90 Esophagitis, unspecified without bleeding; K59.00 Constipation, unspecified; R53.81 Other malaise; Y90.8 Blood alcohol level of 240 mg/100 ml or more; Z79.82 Long term (current) use of aspirin; Z79.899 Other long term (current) drug therapy; Z86.010 Personal history of colon polyps; Z28.310 Unvaccinated for COVID-19; Z91.81 History of falling; Z87.440 Personal history of urinary (tract) infections; Z88.2 Allergy status to sulfonamides; Z91.013 Allergy to seafood
CPT/HCPCS: 36415; 76700; 80053; 80320; 81001; 82150; 83605; 83690; 83735; 84484; 85025; 96361; 96372; 96374; 96375; 96376; 99285

== ENCOUNTER 2022-08-04 20:01 | Inpatient (IN) | payer BC, OTHER ==
[2022-08-04 21:06] LABS: Appearance,Urine Turbid (Clear); Bacteria,Urine Rare /hpf; Bilirubin,Urine Negative (Negative); Blood,Urine Moderate (Negative); Color,Urine Yellow; Glucose,Urine (UA) Negative (Negative); Ketones,Urine 4+ (Negative); Leukocyte Esterase,Urine Large (Negative); Mucus,Urine Few /hpf; Nitrite,Urine Negative (Negative); Protein,Urine 4+ (Negative); RBC,Urine 64 /hpf (0-5); Specific Gravity,Urine 1.023 (1.001-1.035); Squamous Epithelial Cell,Urine 1 /hpf (0-4); Urobilinogen,Urine <2.0 mg/dL (<2.0); WBC,Urine >182 /hpf (0-5)
[2022-08-04] MEDS ORDERED: CEPHALEXIN 500 MG CAP PO STA (21:28)
--- NOTE | 2022-08-04 21:32 | ED ---
General Adult HPI <Alfredo Correa - Last Filed: 08/05/22 02:37> - General Source: patient Mode of arrival: EMS Limitations: no limitations <Blane Witt - Last Filed: 08/05/22 16:33> - General Chief complaint: Urogenital Stated complaint: ETOH Time Seen by Provider: 08/04/22 20:05 - History of Present Illness Initial comments: This is a 62-year-old female who presents to the emergency department via EMS because "I couldn't walk." The patient stated that she was drinking heavily today which he does every day and stated that her lower legs "just wouldn't work and couldn't get off the couch." The patient did however walk and ambulate to EMS when they arrived. The patient stated that she drank 2 pints of whiskey earlier today. The patient is also stated that she had a UTI as she has been having urinary frequency and dysuria. The patient on my evaluation was able to move her lower extremities and as soon as I stated that we would do laboratory workup and imaging, the patient requested Ativan multiple times. I asked why she needed Ativan and she said "it just makes me feel good and I really would like it." The patient stated multiple times how she wanted Ativan to sleep once again stated that we do not just give Ativan because it "makes you feel good." The patient however was resting very comfortably without any further acute distress. The patient denied any trauma. (Balne Witt) - Related Data Previous Rx's Medication Instructions Recorded Atorvastatin [Lipitor] 20 mg PO HS #30 tablet 04/14/22 Nicotine 14Mg/24Hr Patch [Habitrol] 1 patch TRANSDERM DAILY #14 patch 04/14/22 Thiamine [Vitamin B-1] 100 mg PO BID-W/MEALS #60 tab 04/14/22 Ondansetron Odt [Zofran ODT] 4 mg PO Q8HR PRN #10 tab 05/15/22 Calcium Carbonate [Tums] 1,000 mg PO Q4HR PRN tab 06/09/22 Metoprolol Succinate (ER) [Toprol 25 mg PO BID #60 tab 06/09/22 XL] Pantoprazole [Protonix] 40 mg PO AC-BID #60 tab 06/09/22 Cephalexin [Keflex] 500 mg PO Q6HR 5 Days #20 cap 08/04/22 Allergies Allergy/AdvReac Type Severity Reaction Status Date / Time shellfish derived [Shellfish] Allergy Severe Dyspnea Verified 08/05/22 10:35 iodine Allergy Rash/Hives Verified 08/05/22 10:35 Sulfa (Sulfonamide Allergy Rash/Hives Verified 08/05/22 10:35 Antibiotics) Review of Systems ROS Other: All systems not noted in ROS Statement are negative. <Alfredo Correa - Last Filed: 08/05/22 02:37> ROS Other: All systems not noted in ROS Statement are negative. <Blane Witt - Last Filed: 08/05/22 16:33> ROS Statement: Those systems with pertinent positive or pertinent negative responses have been documented in the HPI. Past Medical History Past Medical History: Hypertension, Osteoarthritis (OA) Additional Past Medical History / Comment(s): FallSeptember 2019 with neck injury/L arm weak/decreased sensation and weakness to L leg-sent to [facility] and had cervical surgery, chronic cervical/L shoulder pain since surgery, chronic low back pain for years, ETOH abuse-pt states she has had w ithdrawals/shaking/weakness/nausea/one seizure long ago, alcoholic hepatitis, 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 History of Any Multi-Drug Resistant Organisms: None Reported Past Surgical History: Back Surgery Additional Past Surgical History / Comment(s): Cervical surgery at [facility] d/t injury, colonoscopies/benign polypectomy Past Anesthesia/Blood Transfusion Reactions: No Reported Reaction, Motion Sickness Additional Past Anesthesia/Blood Transfusion Reaction / Comment(s): PT has clausterphobia. Past Psychological History: Anxiety, Depression Smoking Status: Current every day smoker Past Alcohol Use History: Abuse, Daily, Occasional Past Drug Use History: None Reported - Past Family History Mother Family Medical History: Cancer Additional Family Medical History / Comment(s): Mother of melanoma Father Family Medical History: No Reported History Additional Family Medical History / Comment(s): Father is healthy <Blane Witt - Last Filed: 08/05/22 16:33> General Exam Limitations: no limitations General appearance: alert, appears intoxicated Head exam: Present: atraumatic, normocephalic Eye exam: Present: normal appearance, PERRL Pupils: Present: normal accommodation ENT exam: Present: normal exam, normal oropharynx, mucous membranes moist Neck exam: Present: normal inspection, full ROM Respiratory exam: Present: normal lung sounds bilaterally Cardiovascular Exam: Present: regular rate, normal rhythm, normal heart sounds GI/Abdominal exam: Present: soft, normal bowel sounds Extremities exam: Present: normal inspection, full ROM Back exam: Present: normal inspection, full ROM Neurological exam: Present: alert, oriented X3, CN II-XII intact Psychiatric exam: Present: normal affect, normal mood Skin exam: Present: warm, dry <Blane Witt - Last Filed: 08/05/22 16:33> Course Vital Signs 08/04/22 08/05/22 08/05/22 20:09 01:25 02:00 Temperature 98 F 97.9 F Pulse Rate 87 105 H 98 Respiratory 16 16 16 Rate Blood Pressure 130/98 184/94 121/70 O2 Sat by Pulse 97 99 97 Oximetry 08/05/22 08/05/22 06:00 07:56 Temperature 98 F 97.8 F Pulse Rate 104 H 101 H Respiratory 16 18 Rate Blood Pressure 149/77 154/80 O2 Sat by Pulse 96 96 Oximetry Procedures - Sepsis Sepsis Focused Exam #1 Time Sepsis Criteria Met: 02:37 Sepsis Focused Exam Date: 08/05/22 Sepsis Focused Exam Time: 03:00 Sepsis Focused Exam Complete: Yes Vital Signs & RN Notes Reviewed: Yes Capillary Refill: < 2 Seconds: Fingers, Toes Peripheral Pulses: Normal: Radial (R), Radial (L), Posterior Tibialis (R), Posterior Tibialis (L), Dorsalis Pedis (R), Dorsalis Pedis (L) Skin Color: Ashen, Pallor Respiratory Exam: normal lung sounds Cardiovascular Exam: regular rate <Alfredo Correa - Last Filed: 08/05/22 02:37> Medical Decision Making - Lab Data Result diagrams: 08/04/22 23:52 08/04/22 23:52 <Alfredo Correa Last Filed: 08/05/22 02:37> - Lab Data Result diagrams: 08/05/22 08:48 08/05/22 08:48 <Blane Witt - Last Filed: 08/05/22 16:33> - Medical Decision Making The patient was seen and evaluated in the emergency department. Physical exam, the patient was intoxicated however was any acute distress. Vital signs were stable. A primary care breathalyzed alcohol level was 269. No further laboratory workup was obtained however the patient did have urinalysis was significant for a UTI at this time. The patient will be given a dose of Keflex in the emergency department. The patient was asked several times if she had a ride home however she denied this. Due to the patient's elevated alcohol level, the patient will continue to be closely monitored observed. The patient's without any further imaging or laboratory workup performed as she was ambulatory with EMS. The patient will be reevaluated for the ability to ambulate once the patient is sober as well as re-evaluated for any further complaints. The patient will be signed out to the oncoming physician. (Blane Witt) - Lab Data Lab Results 08/04/22 08/04/22 08/04/22 Range/Units 20:59 23:52 23:52 WBC 12.9 H (3.8-10.6) k/uL RBC 4.83 (3.80-5.40) m/uL Hgb 16.2 H (11.4-16.0) gm/dL Hct 47.2 H (34.0-46.0) % MCV 97.8 (80.0-100.0) fL MCH 33.6 (25.0-35.0) pg MCHC 34.4 (31.0-37.0) g/dL RDW 12.9 (11.5-15.5) % Plt Count 310 (150-450) k/uL MPV 7.5 Neutrophils % 76 % Lymphocytes % 20 % Monocytes % 2 % Eosinophils % 1 % Basophils % 1 % Neutrophils # 9.8 H (1.3-7.7) k/uL Lymphocytes # 2.5 (1.0-4.8) k/uL Monocytes # 0.3 (0-1.0) k/uL Eosinophils # 0.1 (0-0.7) k/uL Basophils # 0.1 (0-0.2) k/uL Sodium 139 (137-145) mmol/L Potassium 4.6 (3.5-5.1) mmol/L Chloride 101 (98-107) mmol/L Carbon Dioxide 9 L* (22-30) mmol/L Anion Gap 29 mmol/L BUN 10 (7-17) mg/dL Creatinine 0.56 (0.52-1.04) mg/dL Est GFR (CKD-EPI)AfAm >90 (>60 ml/min/1.73 sqM) Est GFR (CKD-EPI)NonAf >90 (>60 ml/min/1.73 sqM) Glucose 86 (74-99) mg/dL Calcium 8.4 (8.4-10.2) mg/dL Phosphorus 4.1 (2.5-4.5) mg/dL Magnesium 1.7 (1.6-2.3) mg/dL Total Bilirubin 0.8 (0.2-1.3) mg/dL AST 54 H (14-36) U/L ALT 25 (4-34) U/L Alkaline Phosphatase 91 (38-126) U/L Total Protein 8.3 H (6.3-8.2) g/dL Albumin 5.2 H (3.5-5.0) g/dL Urine Color Yellow Urine Appearance Turbid H (Clear) Urine pH 6.0 (5.0-8.0) Ur Specific Marshall 1.023 (1.001-1.035) Urine Protein 4+ H (Negative) Urine Glucose (UA) Negative (Negative) Urine Ketones 4+ H (Negative) Urine Blood Moderate H (Negative) Urine Nitrite Negative (Negative) Urine Bilirubin Negative (Negative) Urine Urobilinogen <2.0 (<2.0) mg/dL Ur Leukocyte Esterase Large H (Negative) Urine RBC 64 H (0-5) /hpf Urine WBC >182 H (0-5) /hpf Urine WBC Clumps Many H (None) /hpf Ur Squamous Epith Cells 1 (0-4) /hpf Urine Bacteria Rare H (None) /hpf Urine Mucus Few H (None) /hpf Disposition Is patient prescribed a controlled substance at d/c from ED?: No Time of Disposition: 01:10 <Alfredo Correa - Last Filed: 08/05/22 02:37> Is patient prescribed a controlled substance at d/c from ED?: No <Blane Witt - Last Filed: 08/05/22 16:33> Clinical Impression: Urinary tract infection, Alcohol intoxication, Lower extremity weakness, Alcoholic ketoacidosis, Weakness, Dehydration Disposition: ADMITTED IP TO THIS HOSP Condition: Fair
[2022-08-04] MEDS ORDERED: SODIUM CHLORIDE 0.9% 1,000 ML IV STA (23:08)
[2022-08-04] MEDS ORDERED: SODIUM CHLORIDE 0.9% 500 ML 500 ML IV STA (23:08)
[2022-08-05 00:10] LABS: Basophils # (A) 0.1 k/uL (0-0.2); Basophils % (A) 1 %; Eosinophils # (A) 0.1 k/uL (0-0.7); Eosinophils % (A) 1 %; HCT 47.2 % (34.0-46.0); HGB 16.2 gm/dL (11.4-16.0); Lymphocytes # (A) 2.5 k/uL (1.0-4.8); Lymphocytes % (A) 20 %; MCH 33.6 pg (25.0-35.0); MCHC 34.4 g/dL (31.0-37.0); MCV 97.8 fL (80.0-100.0); Mean Platelet Volume 7.5; Monocytes # (A) 0.3 k/uL (0-1.0); Monocytes % (A) 2 %; Neutrophils # (A) 9.8 k/uL (1.3-7.7); Neutrophils % (A) 76 %; Platelet Count 310 k/uL (150-450); RBC 4.83 m/uL (3.80-5.40); RDW 12.9 % (11.5-15.5); WBC 12.9 k/uL (3.8-10.6)
[2022-08-05 00:22] LABS: ALT 25 U/L (4-34); African American GFR (CKD) >90 (>60 ml/min/1.73 sqM); Albumin 5.2 g/dL (3.5-5.0); Anion Gap 29 mmol/L; Blood Urea Nitrogen 10 mg/dL (7-17); Calcium 8.4 mg/dL (8.4-10.2); Chloride 101 mmol/L (98-107); Glucose 86 mg/dL (74-99); Non-African American GFR(CKD) >90 (>60 ml/min/1.73 sqM); Sodium 139 mmol/L (137-145); Total Bilirubin 0.8 mg/dL (0.2-1.3); Total Protein 8.3 g/dL (6.3-8.2)
[2022-08-05] MEDS: SODIUM CHLORIDE 0.9% 1,000 ML IV STA ×2 (00:43→03:12)
[2022-08-05] MEDS ORDERED: cefTRIAXone IN SWFI 1,000 MG/10 ML SYRINGE IVP STA (00:45)
[2022-08-05] MEDS ORDERED: LORazepam 2 MG/ML INJ IV STA ×2 (00:45→18:13)
[2022-08-05] MEDS ORDERED: PROCHLORPERAZINE INJ 10 MG/2 ML VIAL IVP STA (00:45)
[2022-08-05] MEDS ORDERED: SODIUM CHLORIDE 0.9% 1,000 ML IV STA (00:51)
[2022-08-05 00:56] LABS: Carbon Dioxide 9 mmol/L (22-30)
[2022-08-05 00:57] LABS: AST 54 U/L (14-36); Magnesium 1.7 mg/dL (1.6-2.3); Phosphorus 4.1 mg/dL (2.5-4.5); Potassium 4.6 mmol/L (3.5-5.1)
[2022-08-05 00:58] LABS: Alkaline Phosphatase 91 U/L (38-126)
[2022-08-05] MEDS ORDERED: NALOXONE 0.4 MG/ML 1 ML VIAL IV PRN (01:04)
[2022-08-05] MEDS ORDERED: THIAMINE 100 MG/ML 2 ML VIAL IM STA (01:04)
[2022-08-05] MEDS ORDERED: ONDANSETRON 4 MG/2 ML VIAL IVP PRN (01:04)
[2022-08-05] MEDS ORDERED: LORazepam 2 MG/ML INJ IV PRN ×2 (01:06)
[2022-08-05] MEDS: DEXTROSE 5%-0.45% NACL 1,000 ML IV SCH ×2 (03:11→12:19)
--- NOTE | 2022-08-05 03:14 | P.HPIM ---
History of Present Illness H&P Date: 08/05/22 The patient is a 62-year-old female with a PMH of EtOH abuse who presents to the emergency room with complaints of nausea, vomiting, and weakness. The patient reports that she has been drinking a fifth of vodka and whiskey daily for the past several years, and that she had her normal amount earlier today and that shortly after, she was sitting on her couch at home and was attempting to stand up and was not able to. She subsequent activated EMS who upon arrival found the patient to be intoxicated and brought her to the emergency room. The patient reports that since arrival at the emergency room she has been throwing up nonstop, and believes she is undergoing withdrawals. States that her last drink was earlier in the day. The patient also reported urinary complaints with dysur ia and urinary frequency. Also reports feeling shaky. Denied experiencing chest discomfort, shortness of breath, fever, chills, cough. Laboratory evaluation in the emergency room was remarkable for a lactic acid of 9.9, CO2 9, WBC count 12.9, hemoglobin 16.2, and a UA consistent with UTI. Review of systems: Pertinent positives and negatives as discussed in HPI, a complete review of systems was performed and all other systems are negative. Physical examination: General: Disheveled female, no distress, appears older than stated age, normal weight Derm: no unusual rashes/lesions, warm Head: atraumatic, normocephalic, symmetric Eyes: EOMI, no lid lag, anicteric sclera, pupils equal round reactive to light ENT: Nose and ears atraumatic Neck: No cervical lymphadenopathy, trachea midline, supple Mouth: no lip lesion, mucus membranes moist Cardiovascular: S1S2 reg, no murmur, positive dorsalis pedis pulse bilateral, no edema Lungs: CTA bilateral, no rhonchi, no rales, no accessory muscle use Abdominal: soft, nontender to palpation, no guarding Ext: muscle strength 4 out of 5 in all 4 extremities grossly, no gross muscle atrophy, no contractures, Neuro: CN II-XI grossly intact, no gross focal neuro deficits Psych: Alert, oriented, appropriate affect Assessment/plan Severe lactic acidosis, secondary to dehydration in setting of EtOH abuse -Antiemetics -IV fluids -CIWA protocol -Monitor electrolytes UTI -Continue ceftriaxone -Follow up urine cultures Debility -PT consult DVT prophylaxis -Heparin subq The patient is admitted with an anticipated greater than 2 midnight stay for evaluation of EtOH abuse CODE STATUS: Full Code Discussed with: Patient Anticipated discharge date: 2-[address]: Home Past Medical History Past Medical History: Hypertension, Osteoarthritis (OA) Additional Past Medical History / Comment(s): FallSeptember 2019 with neck injury/L arm weak/decreased sensation and weakness to L leg-sent to [facility] and had cervical surgery, chronic cervical/L shoulder pain since surgery, chronic low back pain for years, ETOH abuse-pt states she has had withdraw als/shaking/weakness/nausea/one seizure long ago, alcoholic hepatitis, 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 History of Any Multi-Drug Resistant Organisms: None Reported Past Surgical History: Back Surgery Additional Past Surgical History / Comment(s): Cervical surgery at [facility] d/t injury, colonoscopies/benign polypectomy Past Anesthesia/Blood Transfusion Reactions: No Reported Reaction, Motion Sic kness Additional Past Anesthesia/Blood Transfusion Reaction / Comment(s): PT has clausterphobia. Past Psychological History: Anxiety, Depression Smoking Status: Current every day smoker Past Alcohol Use History: Abuse, Daily, Occasional Past Drug Use History: None Reported - Past Family History Mother Family Medical History: Cancer Additional Family Medical History / Comment(s): Mother of melanoma Father Additional Family Medical History / Comment(s): Father is healthy Medications and Allergies Home Medications Medication Instructions Recorded Confirmed Type Atorvastatin [Lipitor] 20 mg PO HS #30 tablet 04/14/22 06/05/22 Rx Nicotine 14Mg/24Hr Patch [Habitrol] 1 patch TRANSDERM DAILY #14 patch 04/14/22 06/05/22 Rx Thiamine [Vitamin B-1] 100 mg PO BID-W/MEALS #60 tab 04/14/22 06/05/22 Rx Ondansetron Odt [Zofran ODT] 4 mg PO Q8HR PRN #10 tab 05/15/22 06/05/22 Rx Calcium Carbonate [Tums] 1,000 mg PO Q4HR PRN tab 06/09/22 Rx Metoprolol Succinate (ER) [Toprol 25 mg PO BID #60 tab 06/09/22 Rx XL] Pantoprazole [Protonix] 40 mg PO AC-BID #60 tab 06/09/22 Rx Cephalexin [Keflex] 500 mg PO Q6HR 5 Days #20 cap 08/04/22 Rx Allergies Allergy/AdvReac Type Severity Reaction Status Date / Time shellfish derived [Shellfish] Allergy Severe Dyspnea Verified 06/05/22 11:24 iodine Allergy Rash/Hives Verified 06/05/22 11:24 Sulfa (Sulfonamide Allergy Rash/Hives Verified 06/05/22 11:24 Antibiotics) Physical Exam Vitals: Vital Signs Temp Pulse Resp BP Pulse Ox 08/05/22 02:00 98 16 121/70 97 08/05/22 01:25 97.9 F 105 H 16 184/94 99 08/04/22 20:09 98 F 87 16 130/98 97 Intake and Output 08/04/22 08/04/22 08/05/22 14:59 22:59 06:59 Other: Weight 72.575 kg Results CBC & Chem 7: 08/04/22 23:52 08/04/22 23:52 Labs: Abnormal Lab Results - Last 24 Hours (Table) 08/04/22 08/04/22 08/04/22 Range/Units 20:59 23:52 23:52 WBC 12.9 H (3.8-10.6) k/uL Hgb 16.2 H (11.4-16.0) gm/dL Hct 47.2 H (34.0-46.0) % Neutrophils # 9.8 H (1.3-7.7) k/uL Carbon Dioxide 9 L* (22-30) mmol/L Plasma Lactic Acid Samuel (0.7-2.0) mmol/L AST 54 H (14-36) U/L Total Protein 8.3 H (6.3-8.2) g/dL Albumin 5.2 H (3.5-5.0) g/dL Urine Appearance Turbid H (Clear) Urine Protein 4+ H (Negative) Urine Ketones 4+ H (Negative) Urine Blood Moderate H (Negative) Ur Leukocyte Esterase Large H (Negative) Urine RBC 64 H (0-5) /hpf Urine WBC >182 H (0-5) /hpf Urine WBC Clumps Many H (None) /hpf Urine Bacteria Rare H (None) /hpf Urine Mucus Few H (None) /hpf 08/05/22 Range/Units 02:00 WBC (3.8-10.6) k/uL Hgb (11.4-16.0) gm/dL Hct (34.0-46.0) % Neutrophils # (1.3-7.7) k/uL Carbon Dioxide (22-30) mmol/L Plasma Lactic Acid Samuel 9.9 H* (0.7-2.0) mmol/L AST (14-36) U/L Total Protein (6.3-8.2) g/dL Albumin (3.5-5.0) g/dL Urine Appearance (Clear) Urine Protein (Negative) Urine Ketones (Negative) Urine Blood (Negative) Ur Leukocyte Esterase (Negative) Urine RBC (0-5) /hpf Urine WBC (0-5) /hpf Urine WBC Clumps (None) /hpf Urine Bacteria (None) /hpf Urine Mucus (None) /hpf
[2022-08-05] MEDS: LORazepam 2 MG/ML INJ IV PRN ×3 (08:13→17:38)
[2022-08-05] MEDS: MORPHINE SULFATE 4 MG/ML SYRINGE IV PRN ×4 (08:14→21:27)
[2022-08-05 09:32] LABS: HCT 38.2 % (34.0-46.0); MCH 33.4 pg (25.0-35.0); MCHC 33.3 g/dL (31.0-37.0); MCV 100.2 fL (80.0-100.0); Mean Platelet Volume 7.9; Platelet Count 190 k/uL (150-450); RBC 3.81 m/uL (3.80-5.40); WBC 12.2 k/uL (3.8-10.6)
[2022-08-05 09:33] LABS: HGB 12.7 gm/dL (11.4-16.0)
[2022-08-05 09:36] LABS: ALT 22 U/L (4-34); AST 39 U/L (14-36); African American GFR (CKD) >90 (>60 ml/min/1.73 sqM); Albumin 4.1 g/dL (3.5-5.0); Albumin/Globulin Ratio 1.7; Alkaline Phosphatase 67 U/L (38-126); Anion Gap 21 mmol/L; Blood Urea Nitrogen 6 mg/dL (7-17); Calcium 6.8 mg/dL (8.4-10.2); Carbon Dioxide 11 mmol/L (22-30); Chloride 104 mmol/L (98-107); Globulin 2.4 g/dL; Glucose 135 mg/dL (74-99); Magnesium 1.3 mg/dL (1.6-2.3); Non-African American GFR(CKD) >90 (>60 ml/min/1.73 sqM); Phosphorus 1.6 mg/dL (2.5-4.5); Potassium 4.4 mmol/L (3.5-5.1); Sodium 136 mmol/L (137-145); Total Bilirubin 0.9 mg/dL (0.2-1.3); Total Protein 6.5 g/dL (6.3-8.2)
[2022-08-05] MEDS ORDERED: CALCIUM GLUCONATE IN NACL 2 GM in SALINE 1 100ML.BAG IVPB ONE (09:58)
[2022-08-05] MEDS: MULTIVITAMINS, THERA 1 EACH TAB PO SCH (10:23)
[2022-08-05] MEDS: FOLIC ACID 1 MG TAB PO SCH (10:23)
[2022-08-05] MEDS: diazePAM 2 MG TAB PO SCH ×3 (10:55→21:44)
[2022-08-05] MEDS: PANTOPRAZOLE 40 MG/10 ML VIAL IVP SCH ×2 (10:57→21:27)
--- NOTE | 2022-08-05 12:50 | P.PN ---
Subjective Progress Note Date: 08/05/22 The patient is a 62-year-old female with a PMH of EtOH abuse who presents to the emergency room with complaints frequent urination. In the emergency department she had frequent nause and vomiting. On arrival to the ER her vital signs within normal limits. Laboratory evaluation in the emergency room was remarkable for a lactic acid of 9.9, CO2 9, WBC count 12.9, hemoglobin 16.2, and a UA consistent with UTI. She was started on IV fluids and Rocephin. It ranges from made for admission. She was started on CIWA protocol along with thiamine and folic acid. Patient seen and examined at bedside. She reports feeling very tired, shaky, sweaty, and overall not well. She reports she had been drinking her usual now up until yesterday. She states that she is still feeling nauseated and having some abdominal pain but that her vomiting has resolved. She is asking for water. General: Ill-appearing, disheveled, no distress, appears at stated age Derm: warm, dry Head: atraumatic, normocephalic, symmetric Eyes: EOMI, no lid lag, anicteric sclera Mouth: no lip lesion, mucus membranes moist Cardiovascular: S1S2 reg, no murmur, positive posterior tibial pulse bilateral, Lungs: Coarse breath sounds bilateral, no rhonchi, no rales , no accessory muscle use Abdominal: soft, tender to palpation epigastric, no guarding, no appreciable organomegaly Ext: no gross muscle atrophy, no edema, no contractures Neuro: CN II-XI grossly intact, no focal neuro deficits, + tremors Psych: Alert, oriented, blunted affect Assessment/plan: Severe lactic acidosis, secondary to dehydration in setting of EtOH abuse and probable cirrhosis ETOH dependency ETOH withdrawal -Antiemetics -IV fluids -CIWA protocol, thiamin, folic acid - shceduled valium - consider naltrexon on discharge if patinet motivated to stop drinking Hypophosphatemia, hypomagnesemia, hypocalcemia - replace and recheck in AM UTI -Continue ceftriaxone -Await urine cultures Debility -PT consult DVT prophylaxis -Heparin subq Discussed with: Patient, nursing Anticipated discharge date: 2-[address]: Home Objective - Vital Signs Vital signs: Vital Signs Temp 98.2 F 08/05/22 10:41 Pulse 102 H 08/05/22 10:41 Resp 14 08/05/22 10:41 BP 154/77 08/05/22 10:41 Pulse Ox 97 08/05/22 10:41 FiO2 Intake & Output 08/04/22 08/05/22 08/05/22 18:59 06:59 18:59 Weight 72.575 kg 72.575 kg - Labs CBC & Chem 7: 08/05/22 08:48 08/05/22 08:48 Labs: Abnormal Lab Results - Last 24 Hours (Table) 08/04/22 08/04/22 08/04/22 Range/Units 20:59 23:52 23:52 WBC 12.9 H (3.8-10.6) k/uL Hgb 16.2 H (11.4-16.0) gm/dL Hct 47.2 H (34.0-46.0) % MCV (80.0-100.0) fL Neutrophils # 9.8 H (1.3-7.7) k/uL Sodium (137-145) mmol/L Carbon Dioxide 9 L* (22-30) mmol/L BUN (7-17) mg/dL Creatinine (0.52-1.04) mg/dL Glucose (74-99) mg/dL Plasma Lactic Acid Samuel (0.7-2.0) mmol/L Calcium (8.4-10.2) mg/dL Phosphorus (2.5-4.5) mg/dL Magnesium (1.6-2.3) mg/dL AST 54 H (14-36) U/L Total Protein 8.3 H (6.3-8.2) g/dL Albumin 5.2 H (3.5-5.0) g/dL Urine Appearance Turbid H (Clear) Urine Protein 4+ H (Negative) Urine Ketones 4+ H (Negative) Urine Blood Moderate H (Negative) Ur Leukocyte Esterase Large H (Negative) Urine RBC 64 H (0-5) /hpf Urine WBC >182 H (0-5) /hpf Urine WBC Clumps Many H (None) /hpf Urine Bacteria Rare H (None) /hpf Urine Mucus Few H (None) /hpf 08/05/22 08/05/22 08/05/22 Range/Units 02:00 05:45 08:48 WBC 12.2 H (3.8-10.6) k/uL Hgb (11.4-16.0) gm/dL Hct (34.0-46.0) % MCV 100.2 H (80.0-100.0) fL Neutrophils # (1.3-7.7) k/uL Sodium (137-145) mmol/L Carbon Dioxide (22-30) mmol/L BUN (7-17) mg/dL Creatinine (0.52-1.04) mg/dL Glucose (74-99) mg/dL Plasma Lactic Acid Samuel 9.9 H* 6.3 H* (0.7-2.0) mmol/L Calcium (8.4-10.2) mg/dL Phosphorus (2.5-4.5) mg/dL Magnesium (1.6-2.3) mg/dL AST (14-36) U/L Total Protein (6.3-8.2) g/dL Albumin (3.5-5.0) g/dL Urine Appearance (Clear) Urine Protein (Negative) Urine Ketones (Negative) Urine Blood (Negative) Ur Leukocyte Esterase (Negative) Urine RBC (0-5) /hpf Urine WBC (0-5) /hpf Urine WBC Clumps (None) /hpf Urine Bacteria (None) /hpf Urine Mucus (None) /hpf 08/05/22 08/05/22 Range/Units 08:48 08:48 WBC (3.8-10.6) k/uL Hgb (11.4-16.0) gm/dL Hct (34.0-46.0) % MCV (80.0-100.0) fL Neutrophils # (1.3-7.7) k/uL Sodium 136 L (137-145) mmol/L Carbon Dioxide 11 L (22-30) mmol/L BUN 6 L (7-17) mg/dL Creatinine 0.47 L (0.52-1.04) mg/dL Glucose 135 H (74-99) mg/dL Plasma Lactic Acid Samuel 4.0 H* (0.7-2.0) mmol/L Calcium 6.8 L (8.4-10.2) mg/dL Phosphorus 1.6 L (2.5-4.5) mg/dL Magnesium 1.3 L (1.6-2.3) mg/dL AST 39 H (14-36) U/L Total Protein (6.3-8.2) g/dL Albumin (3.5-5.0) g/dL Urine Appearance (Clear) Urine Protein (Negative) Urine Ketones (Negative) Urine Blood (Negative) Ur Leukocyte Esterase (Negative) Urine RBC (0-5) /hpf Urine WBC (0-5) /hpf Urine WBC Clumps (None) /hpf Urine Bacteria (None) /hpf Urine Mucus (None) /hpf Microbiology - Last 24 Hours (Table) 08/04/22 20:59 Urine Culture - Preliminary Urine,Voided
[2022-08-05] MEDS: MAGNESIUM SULFATE-D5W PMX 1 GM in DEXTROSE/WATER 1 100ML.BAG IVPB SCH ×4 (12:59→18:14)
[2022-08-05] MEDS: SODIUM PHOSPHATE 10 MMOL in SODIUM CHLORIDE 0.9% 250 ML IVPB SCH ×3 (14:00→21:20)
[2022-08-06] MEDS: MORPHINE SULFATE 4 MG/ML SYRINGE IV PRN ×2 (02:58→19:49)
[2022-08-06] MEDS: DEXTROSE 5%-0.45% NACL 1,000 ML IV SCH ×2 (03:16→08:47)
[2022-08-06] MEDS: LORazepam 2 MG/ML INJ IV PRN (03:30)
[2022-08-06 08:25] LABS: HCT 38.8 % (34.0-46.0); HGB 13.4 gm/dL (11.4-16.0); MCH 33.5 pg (25.0-35.0); MCHC 34.4 g/dL (31.0-37.0); MCV 97.3 fL (80.0-100.0); Mean Platelet Volume 8.1; Platelet Count 105 k/uL (150-450); RBC 3.99 m/uL (3.80-5.40); RDW 13.2 % (11.5-15.5); WBC 7.7 k/uL (3.8-10.6)
[2022-08-06 08:44] LABS: ALT 19 U/L (4-34); AST 32 U/L (14-36); African American GFR (CKD) >90 (>60 ml/min/1.73 sqM); Albumin 3.9 g/dL (3.5-5.0); Albumin/Globulin Ratio 1.6; Alkaline Phosphatase 73 U/L (38-126); Anion Gap 9 mmol/L; Blood Urea Nitrogen <2 mg/dL (7-17); Carbon Dioxide 23 mmol/L (22-30); Chloride 96 mmol/L (98-107); Globulin 2.4 g/dL; Glucose 163 mg/dL (74-99); Magnesium 1.7 mg/dL (1.6-2.3); Non-African American GFR(CKD) >90 (>60 ml/min/1.73 sqM); Phosphorus 1.1 mg/dL (2.5-4.5); Potassium 3.2 mmol/L (3.5-5.1); Sodium 128 mmol/L (137-145); Total Bilirubin 1.2 mg/dL (0.2-1.3); Total Protein 6.3 g/dL (6.3-8.2)
[2022-08-06] MEDS: FOLIC ACID 1 MG TAB PO SCH (08:46)
[2022-08-06] MEDS: diazePAM 2 MG TAB PO SCH ×3 (08:46→22:06)
[2022-08-06] MEDS: THIAMINE 100 MG TAB PO SCH (08:46)
[2022-08-06] MEDS: MULTIVITAMINS, THERA 1 EACH TAB PO SCH (08:46)
[2022-08-06] MEDS: PANTOPRAZOLE 40 MG/10 ML VIAL IVP SCH ×2 (08:46→22:07)
[2022-08-06] MEDS: LORazepam 1 MG TAB PO PRN ×4 (09:19→23:25)
[2022-08-06] MEDS ORDERED: POTASSIUM CHLORIDE ER 20 MEQ TAB.ER PO STA (10:06)
[2022-08-06] MEDS ORDERED: CALCIUM GLUCONATE IN NACL 2 GM in SALINE 1 100ML.BAG IVPB ONE (10:30)
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
[2022-08-06] MEDS: SODIUM PHOSPHATE 10 MMOL in SODIUM CHLORIDE 0.9% 250 ML IVPB SCH ×3 (12:07→17:32)
[2022-08-06] MEDS: AMPICILLIN-SULBACTAM 3 GM in SODIUM CHLORIDE 0.9% 100 ML IVPB SCH ×3 (13:54→23:26)
[2022-08-07] MEDS: LORazepam 1 MG TAB PO PRN (02:51)
[2022-08-07] MEDS: AMPICILLIN-SULBACTAM 3 GM in SODIUM CHLORIDE 0.9% 100 ML IVPB SCH ×3 (05:40→15:42)
[2022-08-07] MEDS: MORPHINE SULFATE 4 MG/ML SYRINGE IV PRN (06:11)
[2022-08-07] MEDS ORDERED: LORazepam 1 MG TAB PO PRN ×3 (08:03)
[2022-08-07] MEDS: THIAMINE 100 MG TAB PO SCH (09:01)
[2022-08-07] MEDS: FOLIC ACID 1 MG TAB PO SCH (09:01)
[2022-08-07] MEDS: MULTIVITAMINS, THERA 1 EACH TAB PO SCH (09:01)
[2022-08-07] MEDS: diazePAM 2 MG TAB PO SCH ×3 (09:01→21:08)
[2022-08-07] MEDS: PANTOPRAZOLE 40 MG/10 ML VIAL IVP SCH (09:01)
[2022-08-07 09:56] LABS: HCT 39.3 % (34.0-46.0); HGB 13.6 gm/dL (11.4-16.0); MCH 33.6 pg (25.0-35.0); MCHC 34.6 g/dL (31.0-37.0); Platelet Count 84 k/uL (150-450); RBC 4.05 m/uL (3.80-5.40); RDW 13.1 % (11.5-15.5); WBC 5.9 k/uL (3.8-10.6)
[2022-08-07 10:08] LABS: ALT 43 U/L (4-34); AST 88 U/L (14-36); African American GFR (CKD) >90 (>60 ml/min/1.73 sqM); Albumin 3.9 g/dL (3.5-5.0); Albumin/Globulin Ratio 1.6; Alkaline Phosphatase 61 U/L (38-126); Anion Gap 10 mmol/L; Blood Urea Nitrogen 3 mg/dL (7-17); Calcium 7.7 mg/dL (8.4-10.2); Carbon Dioxide 24 mmol/L (22-30); Chloride 101 mmol/L (98-107); Globulin 2.4 g/dL; Glucose 96 mg/dL (74-99); Magnesium 1.5 mg/dL (1.6-2.3); Non-African American GFR(CKD) >90 (>60 ml/min/1.73 sqM); Phosphorus 2.7 mg/dL (2.5-4.5); Sodium 135 mmol/L (137-145); Total Bilirubin 1.1 mg/dL (0.2-1.3); Total Protein 6.3 g/dL (6.3-8.2)
[2022-08-07 10:19] LABS: Potassium 3.2 mmol/L (3.5-5.1)
[2022-08-07] MEDS ORDERED: POTASSIUM CHLORIDE ER 20 MEQ TAB.ER PO STA (11:08)
[2022-08-07] MEDS: MAGNESIUM SULFATE-D5W PMX 1 GM in DEXTROSE/WATER 1 100ML.BAG IVPB SCH ×3 (11:23→14:22)
--- NOTE | 2022-08-07 11:55 | P.PN ---
Subjective Progress Note Date: 08/07/22 The patient is a 62-year-old female with a PMH of EtOH abuse who presents to the emergency room with complaints frequent urination. In the emergency department she had frequent nause and vomiting. On arrival to the ER her vital signs within normal limits. Laboratory evaluation in the emergency room was remarkable for a lactic acid of 9.9, CO2 9, WBC count 12.9, hemoglobin 16.2, and a UA consistent with UTI. She was started on IV fluids and Rocephin. Arrangements were made for admission. She was started on CIWA protocol along with thiamine and folic acid. She was noted to have a urinary tract infection positive for enterococcus. She was also started on a PPI for alcoholic gastritis due to her nausea vomiting and abdominal pain. She was found to have electrolyte disturbances which we aggressively replaced. Patient seen and examined at bedside. No chest pain, no nausea, asking for ativan but was sleeping when I walked into the room. General: Ill-appearing, disheveled, no distress, appears at stated age Derm: warm, dry Head: atraumatic, normocephalic, symmetric Eyes: EOMI, no lid lag, anicteric sclera Mouth: no lip lesion, mucus membranes moist Cardiovascular: S1S2 reg, no murmur, positive posterior tibial pulse bilateral, Lungs: Coarse breath sounds bilateral, no rhonchi, no rales , no accessory muscle use Abdominal: soft, tender to palpation epigastric, no guarding, no appreciable organomegaly Ext: no gross muscle atrophy, no edema, no contractures Neuro: CN II-XI grossly intact, no focal neuro deficits, + tremors Psych: Alert, oriented, blunted affect Assessment/plan: ETOH dependency ETOH withdrawal -IV fluids -CIWA protocol changed to oral, thiamin, folic acid - scheduled valium - consider naltrexon on discharge if patient motivated to stop drinking Hypokalemia and Hypomagnesemia - replace and recheck in AM Hyponatremia, improved -Encourage oral intake -Repeat in a.m. Enterococcus UTI - Await sensitivities -ampicillin sulbactam Debility -PT consult DVT prophylaxis -Heparin subq Severe lactic acidosis, secondary to dehydration in setting of EtOH abuse and probable cirrhosis,resolved Hypophosphatemia, hypocalcemia- resolved Discussed with: Patient, nursing Anticipated discharge date:1-[address]: Home Active Medications Generic Name Dose Route Start Last Admin Trade Name Freq PRN Reason Stop Dose Admin Hydrocodone Bitart/Acetaminophen 1 each 08/07/22 11:51 Hydrocodone/Apap 5-325mg 1 Each Tab PO Q6HR PRN Pain Atorvastatin Calcium 20 mg 08/07/22 21:00 Atorvastatin 20 Mg Tab PO HS DANNI Diazepam 2 mg 08/05/22 10:00 08/07/22 09:01 Diazepam 2 Mg Tab PO 2 mg TID DANNI Administration Folic Acid 1 mg 08/05/22 09:00 08/07/22 09:01 Folic Acid 1 Mg Tab PO 1 mg DAILY DANNI Administration Ampicillin Sodium/Sulbactam 100 mls @ 200 mls/hr 08/06/22 12:00 08/07/22 11:24 Sodium 3 gm/ Sodium Chloride IVPB 200 mls/hr Q6HR DANNI Administration Protocol Magnesium Sulfate/Dextrose 1 100 mls @ 100 mls/hr 08/07/22 11:15 08/07/22 11:23 gm/ IV Solution IVPB 08/07/22 14:14 100 mls/hr Q1H DANNI Administration Lorazepam 1 mg 08/07/22 08:03 Lorazepam 1 Mg Tab PO Q4HR PRN Ciwa 6 To 7 Lorazepam 2 mg 08/07/22 08:03 Lorazepam 1 Mg Tab PO Q2HR PRN Ciwa 10 or greater Lorazepam 2 mg 08/07/22 08:03 Lorazepam 1 Mg Tab PO Q3HR PRN Ciwa 8 To 9 Metoprolol Succinate 25 mg 08/07/22 11:45 Metoprolol Succinate (Er) 25 Mg Tab.Er.24h PO BID [facility] Multivitamins 1 each 08/05/22 09:00 08/07/22 09:01 Multivitamins, Thera 1 Each Tab PO 1 each DAILY DANNI Administration Naloxone HCl 0.2 mg 08/05/22 01:04 Naloxone 0.4 Mg/Ml 1 Ml Vial IV Q2M PRN Opioid Reversal Ondansetron HCl 4 mg 08/05/22 01:04 08/05/22 05:22 Ondansetron 4 Mg/2 Ml Vial IVP 4 mg Q8HR PRN Administration Nausea And Vomiting Pantoprazole Sodium 40 mg 08/07/22 11:45 Pantoprazole 40 Mg Tablet PO AC-BID DANNI Thiamine HCl 100 mg 08/06/22 09:00 08/07/22 09:01 Thiamine 100 Mg Tab PO 100 mg DAILY DANNI Administration Objective - Vital Signs Vital signs: Vital Signs Temp 98.1 F 08/07/22 07:58 Pulse 87 08/07/22 07:58 Resp 16 08/07/22 07:58 BP 151/92 08/07/22 07:58 Pulse Ox 97 08/07/22 07:58 FiO2 Intake & Output 08/06/22 08/07/22 08/07/22 18:59 06:59 18:59 Intake Total 1900 Output Total 400 900 Balance 1500 -900 Intake: Intake, IV Titration 1100 Amount Ampicillin-Sulbactam 3 gm 100 In Sodium Chloride 0.9% 100 ml @ 200 mls/hr IVPB Q6HR [facility] Rx#:[id number] Calcium Gluconate in NaCl 100 2 gm In Saline 1 100ml. bag @ 100 mls/hr IVPB ONCE ONE Rx#:[id number] Dextrose 5%-0.45% NaCl 1, 600 000 ml @ 100 mls/hr IV . Q10H [facility] Rx#:[id number] Sodium Phosphate 10 mmol 250 In Sodium Chloride 0.9% 250 ml @ 125 mls/hr IVPB Q2H [facility] Rx#:[id number] cefTRIAXone 1 gm In 50 Sodium Chloride 0.9% 50 ml @ 100 mls/hr IVPB Q12H [facility] Rx#:[id number] Oral 800 Output: Urine 400 900 Other: # Voids 6 2 - Labs CBC & Chem 7: 08/07/22 09:23 08/07/22 09:23 Labs: Abnormal Lab Results - Last 24 Hours (Table) 08/07/22 08/07/22 Range/Units 09:23 09:23 Plt Count 84 L (150-450) k/uL Sodium 135 L (137-145) mmol/L Potassium 3.2 L (3.5-5.1) mmol/L BUN 3 L (7-17) mg/dL Creatinine 0.35 L (0.52-1.04) mg/dL Calcium 7.7 L (8.4-10.2) mg/dL Magnesium 1.5 L (1.6-2.3) mg/dL AST 88 H (14-36) U/L ALT 43 H (4-34) U/L Microbiology - Last 24 Hours (Table) 08/04/22 20:59 Urine Culture - Preliminary Urine,Voided Group D Enterococcus
[2022-08-07] MEDS: HYDROcodone/APAP 5-325MG 1 EACH TAB PO PRN ×2 (12:13→20:12)
[2022-08-07] MEDS: METOPROLOL SUCCINATE (ER) 25 MG TAB.ER.24H PO SCH ×2 (12:13→21:08)
[2022-08-07] MEDS: PANTOPRAZOLE 40 MG TABLET PO SCH ×2 (12:13→15:41)
[2022-08-07] MEDS ORDERED: ATORVASTATIN 20 MG TAB PO SCH (21:00)
[2022-08-08] MEDS: AMPICILLIN-SULBACTAM 3 GM in SODIUM CHLORIDE 0.9% 100 ML IVPB SCH ×2 (00:16→06:30)
[2022-08-08] MEDS: HYDROcodone/APAP 5-325MG 1 EACH TAB PO PRN ×2 (02:08→08:57)
[2022-08-08] MEDS: PANTOPRAZOLE 40 MG TABLET PO SCH (06:30)
[2022-08-08 07:45] VITALS: BP 152/82; PULSE 68; RESP 16; TEMP 98.4
[2022-08-08] MEDS: METOPROLOL SUCCINATE (ER) 25 MG TAB.ER.24H PO SCH (08:54)
[2022-08-08] MEDS: FOLIC ACID 1 MG TAB PO SCH (08:54)
[2022-08-08] MEDS: THIAMINE 100 MG TAB PO SCH (08:54)
[2022-08-08] MEDS: diazePAM 2 MG TAB PO SCH (08:54)
[2022-08-08] MEDS: MULTIVITAMINS, THERA 1 EACH TAB PO SCH (08:54)
[2022-08-08 09:46] LABS: Albumin 3.8 g/dL (3.8-4.9); Albumin/Globulin Ratio 1.91 (1.60-3.17); Anion Gap 10.8 mmol/L (10.00-18.00); BUN/Creat Ratio 16.26 Ratio (12.00-20.00); Blood Urea Nitrogen 6.7 mg/dL (9.0-27.0); Calcium 8.3 mg/dL (8.7-10.3); Carbon Dioxide 23.8 mmol/L (20.0-27.5); Non-African American GFR(CKD) 111.3 (60.0-200.0); Phosphorus 2.2 mg/dL (2.4-5.1); Potassium 3.5 mmol/L (3.5-5.5); Total Bilirubin 0.8 mg/dL (0.30-1.20); Total Protein 5.8 g/dL (6.2-8.2)
[2022-08-08 09:54] LABS: HCT 37.3 % (37.2-46.3); HGB 12.7 g/dL (12.0-15.0); MCV 96.9 fL (80.0-97.0); Mean Platelet Volume 10.8 fL (9.5-12.2); NRBC Per 100 WBC 0 /100 WBCS (0.0-0.0); Platelet Count 96 X 10*3/uL (140-440); RBC 3.85 X 10*6/uL (4.10-5.20); RDW 12.7 % (11.5-14.5); WBC 5.66 X 10*3/uL (4.50-10.00)
--- NOTE | 2022-08-08 10:54 | P.DS ---
Providers Date of admission: 08/05/22 01:07 Expected date of discharge: 08/08/22 Attending physician: Cecilia Cabello MD Primary care physician: Stated None Hospital Course: Discharge Diagnosis: ETOH dependency ETOH withdrawal Hypokalemia Hypomagnesemia Hyponatremia Enterococcus UTI Debility Severe lactic acidosis, secondary to dehydration in setting of EtOH abuse and probable cirrhosis,resolved Hypophosphatemia Hypocalcemia Hospital Course: The patient is a 62-year-old female with a PMH of EtOH abuse who presents to the emergency room with complaints frequent urination. In the emergency department she had frequent nause and vomiting. On arrival to the ER her vital signs within normal limits. Laboratory evaluation in the emergency room was remarkable for a lactic acid of 9.9, CO2 9, WBC count 12.9, hemoglobin 16.2, and a UA consistent with UTI. She was started on IV fluids and Rocephin. Arrangements were made for admission. She was started on CIWA protocol along with thiamine and folic acid. She was noted to have a urinary tract infection positive for enterococcus. She was also started on a PPI for alcoholic gastritis due to her nausea vomiting and abdominal pain. She was found to have electrolyte disturbances which we aggressively replaced. Urinary culture came back consistent with enterococcus. Patient was back to baseline. CIWA score was 0. She was determined stable for discharge. Follow-up: Patient has again been referred to Dr. Mccarty for follow-up. She will complete 4 additional days of ciprofloxacin therapy. She'll complete folic acid and thiamine supplementation. She was recommended to abstain from alcohol on discharge. She was offered rehab as well as Naltrexone on therapy but declined and has no intention of quitting drinking at this time. Patient seen and examined at bedside. Doing well, wants something for pain Vital signs reviewed and stable. General: nontoxic, no distress, appears at stated age Derm: warm, dry Head: atraumatic, normocephalic, symmetric Eyes: EOMI, no lid lag, anicteric sclera Mouth: no lip lesion, mucus membranes moist Cardiovascular: S1S2 reg, no murmur, positive posterior tibial pulse bilateral, Lungs: CTA bilateral, no rhonchi, no rales , no accessory muscle use Abdominal: soft, nontender to palpation, no guarding, no appreciable organomegaly Ext: no gross muscle atrophy, no edema, no contractures Neuro: CN II-XI grossly intact, no focal neuro deficits Psych: Alert, oriented, appropriate affect A total of 37 minutes of time were spent preparing this complex discharge summa ry. Patient was discharged on 08/08/22. Patient Condition at Discharge: Fair Plan - Discharge Summary Discharge Rx Participant: Yes New Discharge Prescriptions: New Ciprofloxacin HCl [Cipro] 500 mg PO Q12HR 4 Days #8 tab Thiamine [Vitamin B-1] 100 mg PO DAILY #30 tab Folic Acid 1 mg PO DAILY #30 tab Continue Atorvastatin [Lipitor] 20 mg PO HS #30 tablet Calcium Carbonate [Tums] 1,000 mg PO Q4HR PRN tab PRN Reason: Dyspepsia Ondansetron Odt [Zofran ODT] 4 mg PO Q8HR PRN #10 tab PRN Reason: Nausea Pantoprazole [Protonix] 40 mg PO AC-BID #60 tab Metoprolol Succinate (ER) [Toprol XL] 25 mg PO BID #60 tab Discontinued Nicotine 14Mg/24Hr Patch [Habitrol] 1 patch TRANSDERM DAILY #14 patch Thiamine [Vitamin B-1] 100 mg PO BID-W/MEALS #60 tab Discharge Medication List Atorvastatin [Lipitor] 20 mg PO HS #30 tablet 04/14/22 [Rx] Ondansetron Odt [Zofran ODT] 4 mg PO Q8HR PRN #10 tab 05/15/22 [Rx] Calcium Carbonate [Tums] 1,000 mg PO Q4HR PRN tab 06/09/22 [Rx] Metoprolol Succinate (ER) [Toprol XL] 25 mg PO BID #60 tab 06/09/22 [Rx] Pantoprazole [Protonix] 40 mg PO AC-BID #60 tab 06/09/22 [Rx] Ciprofloxacin HCl [Cipro] 500 mg PO Q12HR 4 Days #8 tab 08/08/22 [Rx] Folic Acid 1 mg PO DAILY #30 tab 08/08/22 [Rx] Thiamine [Vitamin B-1] 100 mg PO DAILY #30 tab 08/08/22 [Rx] Follow up Appointment(s)/Referral(s): Xochilt Mccarty MD [STAFF PHYSICIAN] - 2 Weeks Patient Instructions/Handouts: Urinary Tract Infection in Women (ED) Activity/Diet/Wound Care/Special Instructions: Activity: as tolerated Diet: regular Special Instructions: Complete antibiotics, Abstain from alcohol You can use over the counter motrin and tylenol as needed for pain Discharge Disposition: HOME SELF-CARE
--- NOTE | 2022-08-10 14:10 | CDI ---
Documentation Clarification Form Date: 08/10/2022 01:33:00 PM From: Samia Penaloza Admit Date: 08/05/2022 01:07:00 AM Patient Name: Sunshine Graham Visit Number: [id number] Discharge Date: 08/08/2022 01:31:00 PM ATTENTION: The Clinical Documentation Specialists (CDI) and [facility] Coding Staff appreciate your assistance in clarifying documentation. Please respond to the clarification below the line at the bottom and electronically sign. The CDI & [facility] Coding staff will review the response and follow-up if needed. Please note: Queries are made part of the Legal Health Record. If you have any questions, please contact the author of this message via ITS. Dr. Shelby Leon Sepsis is documented in the ED note from 08/04/22. Focused sepsis exam performed and met per ED. Subsequent documentation does not mention sepsis. Additional clarification is requested. History/Risk Factors: 62 year old female presented to the ED because patient could not walk. Drinking heavily- everyday occurrence, could not get off the couch. Patient has a UTI with urinary frequency and dysuria. Alcohol dependence with intoxication and withdrawal, dehydration, and alcoholic gastritis Clinical Indicators: urinary frequency, dysuria, sepsis focused exam performed and criteria met per ED, breathalyzed alcohol level is 269. Urinalysis significant for enterococcus UTI, nausea and vomiting, electrolyte abnormalities VS: T 98 P 105 R 16 BP 184/94 O2 97 room air WBC: 12.9 neutrophils 9.8 lactic acid 9.9 Treatment: IV fluids and Rocephin, started on CIWA protocol, thiamine and folic acid, PPI, discharged on additional days of ciprofloxacin therapy. Please clarify if Sepsis is a valid diagnosis? [ ] Sepsis confirmed, remains under treatment [ ] Sepsis confirmed, resolved [ X ] Sepsis ruled out [ ] Other condition, please specify [ ] Unable to determine MTDD
== END 2022-08-08 13:31 | disposition home or self-care (01) | DRG 690 ==
LOC: EC 20:01 → 4SSUR 08-05 01:07
PROVIDERS: ADMIT Internal Medicine; ATTEND Internal Medicine
DX: N39.0 Urinary tract infection, site not specified (principal); F10.239 Alcohol dependence with withdrawal, unspecified; E87.1 Hypo-osmolality and hyponatremia; E87.29 Other acidosis; K29.20 Alcoholic gastritis without bleeding; K74.60 Unspecified cirrhosis of liver; F10.229 Alcohol dependence with intoxication, unspecified; E87.6 Hypokalemia; E83.42 Hypomagnesemia; I10 Essential (primary) hypertension; F32.A Depression, unspecified; F41.9 Anxiety disorder, unspecified; Y90.8 Blood alcohol level of 240 mg/100 ml or more; E83.39 Other disorders of phosphorus metabolism; E83.51 Hypocalcemia; B95.2 Enterococcus as the cause of diseases classified elsewhere; M54.50 Low back pain, unspecified; F17.200 Nicotine dependence, unspecified, uncomplicated; K70.10 Alcoholic hepatitis without ascites; R53.81 Other malaise; M19.90 Unspecified osteoarthritis, unspecified site; E86.0 Dehydration; G89.29 Other chronic pain; M54.2 Cervicalgia; Z86.010 Personal history of colon polyps; Z79.899 Other long term (current) drug therapy; Z88.2 Allergy status to sulfonamides; Z91.041 Radiographic dye allergy status; Z91.81 History of falling; Z87.440 Personal history of urinary (tract) infections; Z71.41 Alcohol abuse counseling and surveillance of alcoholic
CPT/HCPCS: 36415; 80053; 81001; 83605; 83735; 84100; 85025; 85027; 87077; 87086; 87186; 96361; 96372; 96374; 96375; 99285

== ENCOUNTER 2022-12-24 23:13 | Inpatient (IN) | payer BC, OTHER ==
[2022-12-25 00:08] LABS: Glucose,Whole Blood 67 mg/dL (70-110)
[2022-12-25 00:17] LABS: Basophils % (A) 0 %; Eosinophils % (A) 0 %; HCT 45.7 % (34.0-46.0); HGB 15.1 gm/dL (11.4-16.0); Lymphocytes # (A) 1.2 k/uL (1.0-4.8); Lymphocytes % (A) 10 %; MCH 33.2 pg (25.0-35.0); MCV 100.4 fL (80.0-100.0); Macrocytosis Slight; Monocytes # (A) 0.5 k/uL (0-1.0); Monocytes % (A) 4 %; Neutrophils # (A) 9.6 k/uL (1.3-7.7); Neutrophils % (A) 84 %; Platelet Count 239 k/uL (150-450); RBC 4.55 m/uL (3.80-5.40); RDW 13.7 % (11.5-15.5); WBC 11.4 k/uL (3.8-10.6)
[2022-12-25 00:30] LABS: Albumin 4.2 g/dL (3.5-5.0); Calcium 7.5 mg/dL (8.4-10.2); Potassium 4.4 mmol/L (3.5-5.1); Total Bilirubin 0.4 mg/dL (0.2-1.3)
[2022-12-25] MEDS ORDERED: SODIUM CHLORIDE 0.9% 1,000 ML IV ONE ×2 (01:54→05:28)
[2022-12-25] MEDS ORDERED: ONDANSETRON 4 MG/2 ML VIAL IVP STA (01:54)
[2022-12-25] MEDS ORDERED: THIAMINE 100 MG/ML 2 ML VIAL IM STA (01:55)
[2022-12-25] MEDS ORDERED: MORPHINE SULFATE 4 MG/ML SYRINGE IVP STA (01:55)
[2022-12-25] MEDS ORDERED: LORazepam 2 MG/ML INJ IV PRN (01:55)
[2022-12-25] MEDS: LORazepam 2 MG/ML INJ IV PRN ×6 (02:27→20:44)
[2022-12-25] MEDS ORDERED: NALOXONE 0.4 MG/ML 1 ML VIAL IV PRN (05:30)
--- NOTE | 2022-12-25 05:30 | ED ---
General Adult HPI - General Chief complaint: Nausea/Vomiting/Diarrhea Stated complaint: Abd pain Time Seen by Provider: 12/25/22 01:28 Source: patient Mode of arrival: EMS Limitations: no limitations - History of Present Illness Initial comments: This is a 62-year-old female with a past medical history including chronic alcoholism presents emergency department for nausea, vomiting and abdominal pain. The patient did state that she does feel like she is also withdrawing from alcohol. The patient stated that her last drink was over 24 hours ago. The patient stated that she has nausea and vomiting as well as abdominal pain normally when she starts withdrawn. The patient stated that she has not had significant amount of water to drink because she continues to vomit it up. The patient denied any other acute pain or complaints at this time. - Related Data Home Medications Medication Instructions Recorded Confirmed Calcium Carb/Mag Ox/Zinc Sulf 1 tab PO DAILY 10/14/22 10/14/22 [Nrp-Afz-Didb 334-134-5 mg Tab] Cholecalciferol [Vitamin D3 (25 50 mcg PO DAILY 10/14/22 10/14/22 Mcg = 1000 Iu)] Multivitamins, Thera [Multivitamin 1 tab PO DAILY 10/14/22 10/14/22 (formulary)] Vitamin B Complex 1 tab PO DAILY 10/14/22 10/14/22 Previous Rx's Medication Instructions Recorded Calcium Carbonate [Tums] 1,000 mg PO Q4HR PRN tab 10/18/22 Magnesium Oxide [Mag-Ox] 400 mg PO BID #30 tab 10/18/22 Metoprolol Tartrate [Lopressor] 25 mg PO BID #60 tab 10/18/22 Nicotine 21Mg/24Hr Patch [Habitrol] 1 patch TRANSDERM DAILY #14 patch 10/18/22 Pantoprazole [Protonix] 40 mg PO AC-BID #60 tab 10/18/22 Thiamine [Vitamin B-1] 100 mg PO DAILY #30 tab 10/18/22 valACYclovir HCL [Valtrex] 1,000 mg PO BID #10 tab 10/20/22 Allergies Allergy/AdvReac Type Severity Reaction Status Date / Time shellfish derived [Shellfish] Allergy Severe Dyspnea Verified 10/14/22 13:23 iodine Allergy Rash/Hives Verified 10/14/22 13:23 Sulfa (Sulfonamide Allergy Rash/Hives Verified 10/14/22 13:23 Antibiotics) Review of Systems ROS Statement: Those systems with pertinent positive or pertinent negative responses have been documented in the HPI. ROS Other: All systems not noted in ROS Statement are negative. 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 History of Any Multi-Drug Resistant Organisms: None Reported Past Surgical History: Back Surgery Additional Past Surgical History / Comment(s): Cervical surgery at [facility] d/t injury, colonoscopies/benign polypectomy Past Anesthesia/Blood Transfusion Reactions: No Reported Reaction, Motion Sickness Additional Past Anesthesia/Blood Transfusion Reaction / Comment(s): PT has clausterphobia. Past Psychological History: Anxiety, Depression Smoking Status: Current some day smoker Past Alcohol Use History: Abuse, Daily, Occasional Past Drug Use History: None Reported - Past Family History Mother Family Medical History: Cancer Additional Family Medical History / Comment(s): Mother of melanoma Father Family Medical History: No Reported History Additional Family Medical History / Comment(s): Father is healthy General Exam Limitations: no limitations General appearance: alert, in no apparent distress Head exam: Present: atraumatic, normocephalic, normal inspection Eye exam: Present: normal appearance, PERRL Pupils: Present: normal accommodation ENT exam: Present: normal exam, normal oropharynx, mucous membranes moist Neck exam: Present: normal inspection, full ROM Respiratory exam: Present: normal lung sounds bilaterally Cardiovascular Exam: Present: regular rate, normal rhythm, normal heart sounds GI/Abdominal exam: Present: soft, normal bowel sounds Extremities exam: Present: normal inspection, full ROM Back exam: Present: normal inspection, full ROM Neurological exam: Present: alert, oriented X3, CN II-XII intact Psychiatric exam: Present: normal affect, normal mood Skin exam: Present: warm, dry Course Vital Signs 12/24/22 12/25/22 12/25/22 23:25 02:17 06:17 Temperature 98.4 F Pulse Rate 105 H 106 H Respiratory 20 20 Rate Blood Pressure 133/80 132/67 O2 Sat by Pulse 99 98 Oximetry Medical Decision Making - Medical Decision Making Was pt. sent in by a medical professional or institution (, EDITH, FACE PAINTER, urgent care, hospital, or usp...) When possible be specific @ -No Did you speak to anyone other than the patient for history (EMS, parent, family, police, friend...)? What history was obtained from this source @ -No Did you review nursing and triage notes (agree or disagree)? Why? @ -I reviewed and agree with nursing and triage notes Were old charts reviewed (outside hosp., previous admission, EMS record, old EKG, old radiological studies, urgent care reports/EKG's, usp records)? Report findings @ -No old charts were reviewed Differential Diagnosis (chest pain, altered mental status, abdominal pain women, abdominal pain men, vaginal bleeding, weakness, fever, dyspnea, syncope, headache, dizziness, GI bleed, back pain, seizure, CVA, palpatations, mental health)? @ -EtOH withdrawal, nausea, vomiting, gastroenteritis EKG interpreted by me (3pts min.). @ -As above X-rays interpreted by me (1pt min.). @ -None done CT interpreted by me (1pt min.). @ -CT abdomen and pelvis without contrast was obtained secondary to the patient's iodine ALLERGY and was interpreted by myself showing no evidence of renal calculi or signs of collecting system dilatation. There was mild thickeni ng of the cecum and proximal ascending colon. There is also additional mild thickening of the sigmoid colon consistent with likely colitis. There was no other acute findings. U/S interpreted by me (1pt. min.). @ -None done What testing was considered but not performed or refused? (CT, X-rays, U/S, labs)? Why? @ -None What meds were considered but not given or refused? Why? @ -None Did you discuss the management of the patient with other professionals (professionals i.e. EDITH Bolton, FACE PAINTER, lab, RT, psych nurse, child protective services social worker, automation clerk, teacher, second officer, employment evaluator/case manager)? Give summary @ -Yes, admitting physician was contacted regarding admission of the patient. Was smoking cessation discussed for >3mins.? @ -Yes Was critical care preformed (if so, how long)? @ -No Were there social determinants of health that impacted care today? How? (Homelessness, low income, unemployed, alcoholism, drug addiction, transportation, low edu. Level, literacy, decrease access to med. care, penitentiary, rehab)? @ -No Was there de-escalation of care discussed even if they declined (Discuss DNR or withdrawal of care, Hospice)? DNR status @ -No What co-morbidities impacted this encounter? (DM, HTN, Smoking, COPD, CAD, Cancer, CVA, ARF, Chemo, Hep., AIDS, mental health diagnosis, sleep apnea, morbid obesity)? @ -Chronic alcoholism Was patient admitted / discharged? Hospital course, mention meds given and route, prescriptions, significant lab abnormalities, going to OR and other pertinent info. @ -The patient was seen and evaluated in the emergency department. Physical exam, the patient was nauseous and intermittently vomiting. Vital signs admission were stable however the patient was tachycardic. CIWA was obtained and was 11. The patient continued nausea and vomiting and was given medications for this. Laboratory workup was also obtained and showed significant findings for a CO2 of 6, anion gap of 28, lactic acidosis of 5.5 and EtOH of 337. The patient's anion gap was likely elevated secondary to lactic acidosis versus alcohol. The patient did receive 2 L of normal saline fluid. Due to the patient's alcohol withdrawal in the setting of significant dehydration and lactic acidosis, the patient will be admitted for further workup and evaluation. The patient was agreeable to this plan and was admitted in stable condition. Undiagnosed new problem with uncertain prognosis? @ -No Drug Therapy requiring intensive monitoring for toxicity (Heparin, Nitro, Insulin, Cardizem)? @ -No Were any procedures done? @ -No Diagnosis/symptom? @ -Lactic acidosis and dehydration secondary to EtOH withdrawal Acute, or Chronic, or Acute on Chronic? @ -Acute Uncomplicated (without systemic symptoms) or Complicated (systemic symptoms)? @ -Complicated Side effects of treatment? @ -No Exacerbation, Progression, or Severe Exacerbation? @ -No Poses a threat to life or bodily function? How? (Chest pain, [place], [place], pneumonia, PE, COPD, DKA, ARF, appy, cholecystitis, CVA, Diverticulitis, Homicidal, Suicidal, threat to staff... and all critical care pts) @ -Yes, worsening lactic acidosis and dehydration can lead to end organ damage and possible . - Lab Data Result diagrams: 12/24/22 23:49 12/24/22 23:49 Lab Results 12/24/22 12/24/22 12/24/22 Range/Units 23:49 23:49 23:49 WBC 11.4 H (3.8-10.6) k/uL RBC 4.55 (3.80-5.40) m/uL Hgb 15.1 (11.4-16.0) gm/dL Hct 45.7 (34.0-46.0) % MCV 100.4 H (80.0-100.0) fL MCH 33.2 (25.0-35.0) pg MCHC 33.0 (31.0-37.0) g/dL RDW 13.7 (11.5-15.5) % Plt Count 239 (150-450) k/uL MPV 7.0 Neutrophils % 84 % Lymphocytes % 10 % Monocytes % 4 % Eosinophils % 0 % Basophils % 0 % Neutrophils # 9.6 H (1.3-7.7) k/uL Lymphocytes # 1.2 (1.0-4.8) k/uL Monocytes # 0.5 (0-1.0) k/uL Eosinophils # 0.0 (0-0.7) k/uL Basophils # 0.0 (0-0.2) k/uL Macrocytosis Slight Sodium 137 (137-145) mmol/L Potassium 4.4 (3.5-5.1) mmol/L Chloride 103 (98-107) mmol/L Carbon Dioxide 6 L* (22-30) mmol/L Anion Gap 28 mmol/L BUN 13 (7-17) mg/dL Creatinine 0.87 (0.52-1.04) mg/dL Est GFR (CKD-EPI)AfAm 83 (>60 ml/min/1.73 sqM) Est GFR (CKD-EPI)NonAf 72 (>60 ml/min/1.73 sqM) Glucose 65 L (74-99) mg/dL POC Glucose (mg/dL) (70-110) mg/dL POC Glu Service Car Operator ID Lactic Ac Sepsis Rflx Plasma Lactic Acid Samuel 5.5 H* (0.7-2.0) mmol/L Calcium 7.5 L (8.4-10.2) mg/dL Total Bilirubin 0.4 (0.2-1.3) mg/dL AST 36 (14-36) U/L ALT 20 (4-34) U/L Alkaline Phosphatase 80 (38-126) U/L Total Protein 7.0 (6.3-8.2) g/dL Albumin 4.2 (3.5-5.0) g/dL Lipase 73 (23-300) U/L Serum Alcohol 338 H* mg/dL 12/25/22 12/25/22 Range/Units 00:05 00:45 WBC (3.8-10.6) k/uL RBC (3.80-5.40) m/uL Hgb (11.4-16.0) gm/dL Hct (34.0-46.0) % MCV (80.0-100.0) fL MCH (25.0-35.0) pg MCHC (31.0-37.0) g/dL RDW (11.5-15.5) % Plt Count (150-450) k/uL MPV Neutrophils % % Lymphocytes % % Monocytes % % Eosinophils % % Basophils % % Neutrophils # (1.3-7.7) k/uL Lymphocytes # (1.0-4.8) k/uL Monocytes # (0-1.0) k/uL Eosinophils # (0-0.7) k/uL Basophils # (0-0.2) k/uL Macrocytosis Sodium (137-145) mmol/L Potassium (3.5-5.1) mmol/L Chloride (98-107) mmol/L Carbon Dioxide (22-30) mmol/L Anion Gap mmol/L BUN (7-17) mg/dL Creatinine (0.52-1.04) mg/dL Est GFR (CKD-EPI)AfAm (>60 ml/min/1.73 sqM) Est GFR (CKD-EPI)NonAf (>60 ml/min/1.73 sqM) Glucose (74-99) mg/dL POC Glucose (mg/dL) 67 L (70-110) mg/dL POC Glu Service Car Operator ID CallewaertYasmin Lactic Ac Sepsis Rflx Y Plasma Lactic Acid Samuel (0.7-2.0) mmol/L Calcium (8.4-10.2) mg/dL Total Bilirubin (0.2-1.3) mg/dL AST (14-36) U/L ALT (4-34) U/L Alkaline Phosphatase (38-126) U/L Total Protein (6.3-8.2) g/dL Albumin (3.5-5.0) g/dL Lipase (23-300) U/L Serum Alcohol mg/dL Disposition Clinical Impression: Lactic acid acidosis, Alcohol withdrawal, Alcohol intoxication, Dehydration Disposition: ADMITTED IP TO THIS HOSP Condition: Stable Is patient prescribed a controlled substance at d/c from ED?: No Time of Disposition: 04:00 Decision to Admit Reason: Admit from EC Decision Date: 12/25/22 Decision Time: 04:00
--- NOTE | 2022-12-25 06:27 | CT ---
EXAM: CT Abdomen and Pelvis Without Intravenous Contrast CLINICAL HISTORY: ITS.REASON CT Reason: Acute epigastric pain TECHNIQUE: Axial computed tomography images of the abdomen and pelvis without intravenous contrast. CTDI is 10.5 mGy and DLP is 621.4 mGy-cm. This CT exam was performed using one or more of the following dose reduction techniques: automated exposure control, adjustment of the mA and/or kV according to patient size, and/or use of iterative reconstruction technique. COMPARISON: CT abdomen/pelvis dated September 12, 2021 FINDINGS: Limitations: Limited evaluation in the absence of contrast. Lung bases: Suspected scarring at the right lung base. Mediastinum: Small esophageal hiatal hernia. ABDOMEN: Liver: Hepatic steatosis. Gallbladder and bile ducts: Unremarkable. No calcified stones. No ductal dilation. Pancreas: Unremarkable. No ductal dilation. Spleen: Unremarkable. No splenomegaly. Adrenals: Unremarkable. No mass. Kidneys and ureters: Unremarkable. No evidence of radiopaque renal calculi or signs of collecting system dilatation. Stomach and bowel: Mild thickening of the cecum and proximal ascending colon. Additional mild thickening of the sigmoid colon. Findings can be seen with colitis. Colonic diverticulosis. No evidence of diverticulitis. No obstruction. PELVIS: Appendix: Normal appendix. Bladder: Diffuse bladder wall thickening with extensive perivesicular stranding. Findings can be seen with cystitis. Consider correlation with laboratory values. No stones. Reproductive: Unremarkable as visualized. ABDOMEN and PELVIS: Intraperitoneal space: Unremarkable. No free air. No significant fluid collection. Bones/joints: Degenerative changes in the spine. No acute fracture. No dislocation. Soft tissues: Umbilical hernia containing fat. Vasculature: Atherosclerotic disease. No abdominal aortic aneurysm. Lymph nodes: Unremarkable. No enlarged lymph nodes. IMPRESSION: 1. Limited evaluation in the absence of contrast. 2. No evidence of radiopaque renal calculi or signs of collecting system dilatation. 3. Mild thickening of the cecum and proximal ascending colon. Additional mild thickening of the sigmoid colon. Findings can be seen with colitis. 4. No other acute findings. 5. Incidental findings as described.
[2022-12-25 06:48] LABS: Glucose,Whole Blood 109 mg/dL (70-110)
[2022-12-25] MEDS: SODIUM CHLORIDE 0.9% 1,000 ML IV SCH ×2 (07:49→14:41)
[2022-12-25] MEDS ORDERED: CALCIUM CARBONATE 500 MG CHEWABLE PO PRN (10:41)
[2022-12-25] MEDS ORDERED: THIAMINE 100 MG TAB PO SCH (10:45)
[2022-12-25] MEDS: PANTOPRAZOLE 40 MG TABLET PO SCH ×2 (11:13→19:18)
[2022-12-25] MEDS: MULTIVITAMINS, THERA 1 EACH TAB PO SCH (11:13)
[2022-12-25] MEDS: METOPROLOL TARTRATE 25 MG TAB PO SCH ×2 (11:13→21:12)
[2022-12-25] MEDS: NICOTINE 21MG/24HR PATCH TRANSDERM SCH ×2 (11:14→11:16)
[2022-12-25] MEDS ORDERED: ACETAMINOPHEN TAB 500 MG TAB PO STA (12:37)
[2022-12-25] MEDS: ONDANSETRON 4 MG/2 ML VIAL IVP PRN ×2 (12:42→20:51)
[2022-12-25] MEDS: MAGNESIUM OXIDE 400 MG TAB PO SCH (21:12)
--- NOTE | 2022-12-25 21:38 | P.HPIM ---
History of Present Illness H&P Date: 12/25/22 Chief Complaint: Abdominal pain This is a 62-year-old patient, follows with Dr. Ogden . 2019. following a fall for alcohol intoxication. found to have a spinal cord concussion and transferred out to [facility]. Underwent surgery at [facility] was then Did well . Has subsequently has gone back on drinking excessive alcohol. multiple admissions for alcohol intoxication. Chronic conditions include gastritis, esophagitis, alcohol use disorder, alcoholic myopathy. Baseline uses a walker. April 2022 had a normal cardiac catheterization Patient now presents to the ER with nausea vomiting abdominal pain. She's had abdominal pain chronically but now getting worse. Has continued to drink whiskey. Symptoms became worse yesterday. No nausea vomiting and all pain. No blood in the vomiting. No fever no chills. She pretty much lays in the bed/so far. Does use a walker at baseline. Rather unkempt looking in the ER. Slight abdominal distention. The pain is more so in the upper abdomen. In the epigastric area. Alcohol level on presentation was 338 Review of systems: GEN.: Tired EYES: None HEENT: None NECK: None RESPIRATORY: baseline shortness of breath CARDIOVASCULAR: None GASTROINTESTINAL: As above GENITOURINARY: None MUSCULOSKELETAL: Chronic joint pains, muscle weakness LYMPHATICS: None HEMATOLOGICAL: As above PSYCHIATRY: Anxious NEUROLOGICAL: Tremors. Past medical history to include: Spinal cord concussion secondary to fall, alcohol use disorder, chronic nicotine dependence, gastritis, esophagitis, alcoholic myopathy, normal cardiac catheterization April 2022 Social history: Lives with her ,'s drinks at least one-to pint of whiskey a day, smoking variable amounts since 1997 Family history: Mother of melanoma Physical examination: VITAL SIGNS: 98.4, 105, 20, 133/80, 96 % room air GENERAL: BMI 23.6 Laying in bed anxious, tired EYES: Pupils equal. Conjunctiva normal. HEENT: External appearance of nose and ears normal, oral cavity dry mucous membranes NECK: JVD not raised; masses not palpable. HEART: First and second heart sounds are normal; no edema. LUNGS:[ Respiratory rate increased; decreased breath sounds, ABDOMEN: Soft, less distention with epigastric mildl tenderness, no guarding rigidity liver spleen not palpable, no masses palpable. PSYCH: AO 3, mood affect anxious MUSCULAR skeletal: Unremarkable NEUROLOGICAL: Cranial nerves grossly intact; no facial asymmetry, tremors. LYMPHATICS: No lymph nodes palpable neck and axilla INVESTIGATIONS, reviewed in the clinical context: White count 11.4 hemoglobin 15.1 platelets 239 sodium 137 potassium 4.4 bicarb 6 BUN 13 creatinine 0.87 blood glucose 65 Lactic acid 5.[address] abdomen pelvis: Mild thickening of the sigmoid colon. Umbilical hernia containing fat. DJD changes of the spine. Hepatic steatosis. No splenomegaly. Colonic diverticulosis. Mild thickening of the cecum and proximal ascending colon. Assessment and plan: -Acute alcohol withdrawal syndrome: Last drink over 5 days ago: Improved Valium discontinued . 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 Nutritional supplement. Stop alcohol. PTOT. 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 Twice a day. Tums. GI services not available in hospital. Consult surgery. CT abdomen and nonspecific findings. -Hyponatremia, likely hypoosmolar from poor oral fluid intake: Better Increase food intake -Moderate protein calorie malnutrition Low albumin. Decreased muscle mass. Ensure 3 times a day -COPD in a smoker: DuoNeb -Severe metabolic acidosis. *Sodium bicarbonate drip -Lactic acidosis type II. From volume depletion. No sepsis. IV hydration -Alcohol use disorder Counseling -Chronic nicotine dependence, patient's cigarette smoker Nicotine patch -Chronic left shoulder pain Pain controlled -Essential hypertension Lopressor 25 mg twice a day -Chronic Alcoholic myopathy, causing chronic gait dysfunction 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 Uses a walker -Full code CIWA scale. Valium 5 mg by mouth 3 times a day for alcohol withdrawal. Changed to liquid diet. Consult surgery. IV bicarbonate drip. Multivitamins. Discussed with patient. Past Medical History Past Medical History: Hypertension, Osteoarthritis (OA) Additional Past Medical History / Comment(s): Fall September 2019 with neck injury/L arm weak/decreased sensation and weakness to L leg-sent to [facility] and had cervical surgery, chronic cervical/L shoulder pain since surgery, chronic low back pain for years, ETOH abuse-pt states she has had withdrawals/shaking/weakness/nausea/one seizure long ago, alcoholic hepatitis, 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 History of Any Multi-Drug Resistant Organisms: None Reported Past Surgical History: Back Surgery Additional Past Surgical History / Comment(s): Cervical surgery at [facility] d/t injury, colonoscopies/benign polypectomy Past Anesthesia/Blood Transfusion Reactions: No Reported Reaction, Motion Sickness Additional Past Anesthesia/Blood Transfusion Reaction / Comment(s): PT has clausterphobia. Past Psychological History: Anxiety, Depression Smoking Status: Current some day smoker Past Alcohol Use History: Abuse, Daily, Occasional Past Drug Use History: None Reported - Past Family History Mother Family Medical History: Cancer Additional Family Medical History / Comment(s): Mother of melanoma Father Family Medical History: No Reported History Additional Family Medical History / Comment(s): Father is healthy Medications and Allergies Home Medications Medication Instructions Recorded Confirmed Type Fexofenadine/Pseudoephedrine 1 tab PO DAILY PRN 12/25/22 12/25/22 History [Katarzyna-D 24 Hour Tablet] Allergies Allergy/AdvReac Type Severity Reaction Status Date / Time shellfish derived [Shellfish] Allergy Severe Dyspnea Verified 10/14/22 13:23 iodine Allergy Rash/Hives Verified 10/14/22 13:23 Sulfa (Sulfonamide Allergy Rash/Hives Verified 10/14/22 13:23 Antibiotics) Physical Exam Vitals: Vital Signs Temp Pulse Resp BP Pulse Ox 12/25/22 10:00 106 H 16 139/79 12/25/22 07:42 112 H 16 143/81 96 12/25/22 06:17 98.4 F 12/25/22 02:17 106 H 20 132/67 98 12/24/22 23:25 105 H 20 133/80 99 Intake and Output 12/24/22 12/25/22 12/25/22 22:59 06:59 14:59 Other: Weight 72.575 kg Results CBC & Chem 7: 12/24/22 23:49 12/24/22 23:49 Labs: Abnormal Lab Results - Last 24 Hours (Table) 12/24/22 12/24/22 12/24/22 Range/Units 23:49 23:49 23:49 WBC 11.4 H (3.8-10.6) k/uL MCV 100.4 H (80.0-100.0) fL Neutrophils # 9.6 H (1.3-7.7) k/uL Carbon Dioxide 6 L* (22-30) mmol/L Glucose 65 L (74-99) mg/dL POC Glucose (mg/dL) (70-110) mg/dL Plasma Lactic Acid Samuel 5.5 H* (0.7-2.0) mmol/L Calcium 7.5 L (8.4-10.2) mg/dL Serum Alcohol 338 H* mg/dL 12/25/22 12/25/22 Range/Units 00:05 05:41 WBC (3.8-10.6) k/uL MCV (80.0-100.0) fL Neutrophils # (1.3-7.7) k/uL Carbon Dioxide (22-30) mmol/L Glucose (74-99) mg/dL POC Glucose (mg/dL) 67 L (70-110) mg/dL Plasma Lactic Acid Samuel 6.0 H* (0.7-2.0) mmol/L Calcium (8.4-10.2) mg/dL Serum Alcohol mg/dL
--- NOTE | 2022-12-25 22:22 | XR ---
EXAMINATION TYPE: XR abdomen 2V DATE OF EXAM: 12/25/2022 CLINICAL HISTORY: Abdominal pain. TECHNIQUE: Supine and upright views of the abdomen are obtained. COMPARISON: CT abdomen and pelvis earlier today FINDINGS: Gas is seen in nondistended stomach. Scattered gas is seen in non-distended small bowel loo ps. Gas and fecal material is seen in non-distended colon. There is no visceromegaly, pneumoperiton eum, or abnormal calcification appreciated. The lung bases are clear and the osseous structures are intact. IMPRESSION: Overall nonobstructive bowel gas pattern redemonstrated.
[2022-12-25] MEDS: DEXTROSE 5% IN WATER 1,000 ML with SODIUM BICARB (1 MEQ/ML) 150 ML IV SCH (22:56)
[2022-12-25 23:01] LABS: Glucose,Whole Blood 133 mg/dL (70-110)
[2022-12-25] MEDS: valACYclovir HCL 1,000 MG TABLET PO SCH (23:01)
[2022-12-25 23:34] LABS: Prothrombin Time 10.2 sec (9.0-12.0)
[2022-12-26] MEDS: LORazepam 2 MG/ML INJ IV PRN ×5 (01:08→20:58)
[2022-12-26 01:59] LABS: Appearance,Urine Cloudy (Clear); Bacteria,Urine Rare /hpf; Bilirubin,Urine 1+ (Negative); Blood,Urine Large (Negative); Color,Urine Yellow; Glucose,Urine (UA) Negative (Negative); Ketones,Urine 3+ (Negative); Leukocyte Esterase,Urine Large (Negative); Mucus,Urine Rare /hpf; Nitrite,Urine Negative (Negative); PH, Urine 6.5 (5.0-8.0); Protein,Urine 2+ (Negative); RBC,Urine >182 /hpf (0-5); Specific Gravity,Urine 1.019 (1.001-1.035); Squamous Epithelial Cell,Urine 2 /hpf (0-4); WBC,Urine >182 /hpf (0-5)
[2022-12-26] MEDS: ONDANSETRON 4 MG/2 ML VIAL IVP PRN (06:11)
[2022-12-26 06:44] LABS: Basophils % (A) 1 %; Eosinophils # (A) 0.1 k/uL (0-0.7); Eosinophils % (A) 1 %; HCT 36.7 % (34.0-46.0); HGB 13.1 gm/dL (11.4-16.0); Lymphocytes # (A) 1.5 k/uL (1.0-4.8); Lymphocytes % (A) 22 %; MCH 33.8 pg (25.0-35.0); MCHC 35.7 g/dL (31.0-37.0); Mean Platelet Volume 7.4; Monocytes # (A) 0.6 k/uL (0-1.0); Monocytes % (A) 8 %; Neutrophils # (A) 4.6 k/uL (1.3-7.7); Neutrophils % (A) 67 %; Platelet Count 125 k/uL (150-450); RBC 3.88 m/uL (3.80-5.40); RDW 14.1 % (11.5-15.5); WBC 6.9 k/uL (3.8-10.6)
[2022-12-26 06:53] LABS: ALT 19 U/L (4-34); AST 32 U/L (14-36); African American GFR (CKD) >90 (>60 ml/min/1.73 sqM); Albumin 3.8 g/dL (3.5-5.0); Alkaline Phosphatase 67 U/L (38-126); Anion Gap 11 mmol/L; Blood Urea Nitrogen 8 mg/dL (7-17); Carbon Dioxide 21 mmol/L (22-30); Chloride 99 mmol/L (98-107); Glucose 132 mg/dL (74-99); Non-African American GFR(CKD) >90 (>60 ml/min/1.73 sqM); Potassium 3.3 mmol/L (3.5-5.1); Sodium 131 mmol/L (137-145); Total Bilirubin 1.2 mg/dL (0.2-1.3); Total Protein 6.6 g/dL (6.3-8.2)
[2022-12-26 07:37] LABS: MCV 94.7 fL (80.0-100.0)
[2022-12-26] MEDS: valACYclovir HCL 1,000 MG TABLET PO SCH ×2 (08:18→22:11)
[2022-12-26] MEDS: DEXTROSE 5% IN WATER 1,000 ML with SODIUM BICARB (1 MEQ/ML) 150 ML IV SCH ×2 (08:18→18:21)
[2022-12-26] MEDS: CALCIUM CARBONATE LIQUID 500 MG/5 ML CUP PO SCH ×3 (08:19→17:03)
[2022-12-26] MEDS: THIAMINE 100 MG TAB PO SCH (08:19)
[2022-12-26] MEDS: MAGNESIUM OXIDE 400 MG TAB PO SCH ×2 (08:19→20:58)
[2022-12-26] MEDS: NICOTINE 21MG/24HR PATCH TRANSDERM SCH (08:19)
[2022-12-26] MEDS: PANTOPRAZOLE 40 MG TABLET PO SCH ×3 (08:19→17:07)
[2022-12-26] MEDS: CHOLECALCIFEROL 25 MCG (1000 IU) TABLET PO SCH (08:19)
[2022-12-26] MEDS: METOPROLOL TARTRATE 25 MG TAB PO SCH ×2 (08:19→20:58)
[2022-12-26] MEDS: MULTIVITAMINS, THERA 1 EACH TAB PO SCH (08:19)
[2022-12-26] MEDS ORDERED: NON FORMULARY DRUG (Calcium Carb/Mag Ox/Zinc Sulf [Cal-Mag-Zinc 334-134-5 Mg Tab] 1 EACH T PO SCH (09:00)
--- NOTE | 2022-12-26 17:29 | P.PN ---
Progress Note - Text Progress Note Date: 12/26/22 Chief Complaint: Abdominal pain This is a 62-year-old patient, follows with Dr. Odgen . 2019. following a fall for alcohol intoxication. found to have a spinal cord concussion and transferred out to [facility]. Underwent surgery at [facility] was then Did well . Has subsequently has gone back on drinking excessive alcohol. multiple admissions for alcohol intoxication. Chronic conditions include gastritis, esophagitis, alcohol use disorder, alcoholic myopathy. Baseline uses a walker. April 2022 had a normal cardiac catheterization Patient now presents to the ER with nausea vomiting abdominal pain. She's had abdominal pain chronically but now getting worse. Has continued to drink whiskey. Symptoms became worse yesterday. No nausea vomiting and all pain. No blood in the vomiting. No fever no chills. She pretty much lays in the bed/so far. Does use a walker at baseline. Rather unkempt looking in the ER. Slight abdominal distention. The pain is more so in the upper abdomen. In the epigastric area. Alcohol level on presentation was 338 Admitted with acute alcohol intake, alcohol withdrawal syndrome, hyponatremia, acute and chronic abdominal pain. Metabolic acidosis. December 26: Remains on CIWA scale. Valium 5 mg 3 times a day. Anxious tremors. Vomiting better. Advance to full liquids. Spoke to the nurse to have the patient up in a chair. weak. Bicarbonate up to 21. Oral intake poor Active Medications Acetaminophen (Acetaminophen Tab 500 Mg Tab) 500 mg PO Q6HR PRN PRN Reason: Fever and/ or Pain Calcium Carbonate/Glycine (Calcium Carbonate Liquid 500 Mg/5 Ml Cup) 500 mg PO TID-W/MEALS [facility] [place] Last Admin: 12/26/22 17:03 Dose: Not Given Cholecalciferol (Cholecalciferol 25 Mcg (1000 Iu) Tablet) 50 mcg PO DAILY [facility] Last Admin: 12/26/22 08:19 Dose: 50 mcg Sodium Bicarbonate 150 ml/ (Dextrose/Water) 1,150 mls @ 125 mls/hr IV .Q9H12M [facility] Last Admin: 12/26/22 08:18 Dose: 125 mls/hr Lorazepam (Lorazepam 2 Mg/Ml Inj) 2 mg IV Q10M PRN PRN Reason: CIWA 16 or higher Stop: 12/27/22 01:55 Lorazepam (Lorazepam 2 Mg/Ml Inj) 1 mg IV Q2HR PRN PRN Reason: CIWA 8 or 9 Last Admin: 12/26/22 15:05 Dose: 1 mg Lorazepam (Lorazepam 2 Mg/Ml Inj) 1 mg IV Q1HR PRN PRN Reason: CIWA 10 to 15 Last Admin: 12/26/22 08:35 Dose: 1 mg Magnesium Oxide (Magnesium Oxide 400 Mg Tab) 400 mg PO BID [facility] [place] Last Admin: 12/26/22 08:19 Dose: 400 mg Metoprolol Tartrate (Metoprolol Tartrate 25 Mg Tab) 25 mg PO BID [facility] Last Admin: 12/26/22 08:19 Dose: 25 mg Multivitamins (Multivitamins, Thera 1 Each Tab) 1 each PO DAILY [facility] Last Admin: 12/26/22 08:19 Dose: 1 each Naloxone HCl (Naloxone 0.4 Mg/Ml 1 Ml Vial) 0.2 mg IV Q2M PRN PRN Reason: Opioid Reversal Nicotine (Nicotine 21mg/24hr Patch) 1 patch TRANSDERM DAILY [facility] Last Admin: 12/26/22 08:19 Dose: 1 patch Ondansetron HCl (Ondansetron 4 Mg/2 Ml Vial) 4 mg IVP Q8HR PRN PRN Reason: Nausea And Vomiting Last Admin: 12/26/22 06:11 Dose: 4 mg Pantoprazole Sodium (Pantoprazole 40 Mg Tablet) 40 mg PO AC-BID [facility] Last Admin: 12/26/22 17:07 Dose: 40 mg Thiamine HCl (Thiamine 100 Mg Tab) 100 mg PO DAILY [facility] Last Admin: 12/26/22 08:19 Dose: 100 mg Valacyclovir HCl (Valacyclovir Hcl 1,000 Mg Tablet) 1,000 mg PO BID [facility]; Protocol Last Admin: 12/26/22 08:18 Dose: 1,000 mg Past medical history to include: Spinal cord concussion secondary to fall, alcohol use disorder, chronic nicotine dependence, gastritis, esophagitis, alcoholic myopathy, normal cardiac catheterization April 2022 Social history: Lives with her ,'s drinks at least one-to pint of whiskey a day, smoking variable amounts since 1997 Family history: Mother of melanoma Physical examination: VITAL SIGNS: 97.8, 70, 18, 153/83, 97% room air GENERAL: BMI 23.6 Laying in bed anxious, tired EYES: Pupils equal. Conjunctiva normal. HEENT: External appearance of nose and ears normal, oral cavity dry mucous membranes NECK: JVD not raised; masses not palpable. HEART: First and second heart sounds are normal; no edema. LUNGS:[ Respiratory rate increased; decreased breath sounds, ABDOMEN: Soft, less distention with epigastric mildl tenderness, no guarding rigidity liver spleen not palpable, no masses palpable. PSYCH: AO 3, mood affect anxious MUSCULAR skeletal: Muscle muscle mass NEUROLOGICAL: Cranial nerves grossly intact; no facial asymmetry, tremors. INVESTIGATIONS, reviewed in the clinical context: Abdominal x-ray: Nonobstructive gas pattern December 26: White count 6.9 hemoglobin 13.1 platelets 125 sodium 131 potassium 3.3 creatinine 0.42 bicarbonate 21 White count 11.4 hemoglobin 15.1 platelets 239 sodium 137 potassium 4.4 bicarb 6 BUN 13 creatinine 0.87 blood glucose 65 Lactic acid 5.[address] abdomen pelvis: Mild thickening of the sigmoid colon. Umbilical hernia containing fat. DJD changes of the spine. Hepatic steatosis. No splenomegaly. Colonic diverticulosis. Mild thickening of the cecum and proximal ascending colon. Assessment and plan: -Acute alcohol withdrawal syndrome:, Anxious tremors . CIWA scale. 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 Nutritional supplement. Stop alcohol. 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 Twice a day. Tums. GI services not available in hospital. Consult surgery. CT abdomen and nonspecific findings. -Hyponatremia, likely hypoosmolar from poor oral fluid intake: Advanced to full liquids -Moderate protein calorie malnutrition Low albumin. Decreased muscle mass. Ensure 3 times a day -COPD in a smoker: DuoNeb -Severe metabolic acidosis.: Improving *Sodium bicarbonate drip discontinued -Lactic acidosis type II. From volume depletion. No sepsis. 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 Start Valium 5 mg 3 times a day for withdrawals. Full liquid diet. Stop IV bicarbonate drip. Multivitamins. PTOT tomorrow. Poor oral intake
[2022-12-26] MEDS: SODIUM BICARBONATE TAB 650 MG TAB PO SCH (20:58)
[2022-12-26] MEDS: diazePAM 5 MG TAB PO SCH (22:11)
--- NOTE | 2022-12-26 22:15 | P.GSCN ---
History of Present Illness Consult date: 12/26/22 History of present illness: REASON FOR CONSULTATION: Intractable epigastric abdominal pain HISTORY OF PRESENT ILLNESS: The patient is a 62 year old female with alcohol abuse who presents with over 1-2 month history of intractable epigastric abdominal pain. She reports a bandlike sensation bilateral upper abdomen. She still has her gallbladder. No fevers or chills. No notable history for leg gastritis. No exposure to sick contents to her knowledge. CT of the abdomen and pelvis was obtained without specific findings. General surgery is consulted due to intractable abdominal pain. PAST MEDICAL HISTORY: See list and reviewed PAST SURGICAL HISTORY: See list and reviewed MEDICATIONS: See list and reviewed ALLERGIES: See list and reviewed SOCIAL HISTORY: See list and reviewed FAMILY HISTORY: See list and reviewed REVIEW OF ORGAN SYSTEMS: CONSTITUTIONAL: No fevers or chills. No recent weight loss. EYES: Denies any trouble with vision. No glasses. HEENT: No difficulties with hearing. No nosebleeds. No difficulty swallowing. RESPIRATORY: Denies pneumonia. Denies any troubles with breathing or dyspnea on exertion. Has tobacco abuse disorder. CARDIOVASCULAR: Has hypertension. GASTROINTESTINAL: Has persistent epigastric abdominal pain. Has alcoholism. GENITOURINARY: Denies any blood in urine or increased urinary frequency. NEUROLOGICAL: Denies any numbness or tingling along the distal extremities. No seizure disorders or headaches. MUSCULOSKELETAL: Has any back pain, stiffness or joint arthritis. SKIN: No current skin cancer. No rash. PSYCHIATRIC: Has generalized anxiety disorder and depression. ENDOCRINE: Denies current thyroid disorders. Denies any blood sugar glucose intolerance. HEME/LYMPHATIC: Denies any lumps and bumps around the neck. No recent deep venous thrombosis. ALLERGY/IMMUNOLOGY: No immunoglobulin therapy. No immune deficiencies. BREAST: Denies current breast lumps, pain or nipple discharge. PHYSICAL EXAM: VITALS: Reviewed CONSTITUTIONAL: Well developed and in no acute distress. EYES: Conjuctivae without sclera icterus. Extraocular movements grossly intact. HEAD, EARS, NOSE, THROAT: Moist buccal mucosa. Head is atraumatic, normocephalic. Hears conversational speech. No nasal drainage. NECK: Supple. No JV distention. No thyroidomegaly. RESPIRATORY: Non-labored respirations and equal bilateral excursions. No gross wheezes. CARDIOVASCULAR: Palpable 2+ radial pulses. ABDOMEN: Tender along epigastrium. LYMPH: No neck lymphadenopathy. MUSCULOSKELETAL: No clubbing cyanosis or edema. SKIN: Warm and well perfused with good skin turgor. NEUROLOGIC: Cranial nerves II through XII grossly intact. No focal or lateralizing signs. PSYCH: Appropriate affect. Alert and oriented to person, place and time. Displays appropriate insight. CLINCAL LABS: Reviewed. WBC within normal limits. Potassium low 3.3, hypokalemia. Sodium low 131, hyponatremic IMAGING: Independently reviewed. CT of the abdomen and pelvis demonstrates presence of gallbladder. No bowel obstruction. No colitis. RADIOLOGY: Report reviewed CT abdomen and pelvis without free air or colitis. ASSESSMENT: 1. Abdominal pain, intractable epigastric pain. 2. Alcohol abuse withdrawal PLAN: 1. IV fluid hydration. 2. Recommend ultrasound of the gallbladder with HIDA scan due to abdominal pain 3. Repeat CBC and CMP Thank you for this kind consultation. Past Medical History Past Medical History: Hypertension, Osteoarthritis (OA) Additional Past Medical History / Comment(s): FallSeptember 2019 with neck injury/L arm weak/decreased sensation and weakness to L leg-sent to [facility] and had cervical surgery, chronic cervical/L shoulder pain since surgery, chronic low back pain for years, ETOH abuse-pt states she has had withdrawal s/shaking/weakness/nausea/one seizure long ago, alcoholic hepatitis, 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 History of Any Multi-Drug Resistant Organisms: None Reported Past Surgical History: Back Surgery Additional Past Surgical History / Comment(s): Cervical surgery at [facility] d/t injury, colonoscopies/benign polypectomy Past Anesthesia/Blood Transfusion Reactions: No Reported Reaction, Motion Sickn ess Additional Past Anesthesia/Blood Transfusion Reaction / Comm: PT has cl austerphobia. Past Psychological History: Anxiety, Depression Smoking Status: Current some day smoker Past Alcohol Use History: Abuse, Daily, Occasional Past Drug Use History: None Reported - Past Family History Mother Family Medical History: Cancer Additional Family Medical History / Comment(s): Mother of melanoma Father Family Medical History: No Reported History Additional Family Medical History / Comment(s): Father is healthy Medications and Allergies Home Medications Medication Instructions Recorded Confirmed Type Fexofenadine/Pseudoephedrine 1 tab PO DAILY PRN 12/25/22 12/25/22 History [Katarzyna-D 24 Hour Tablet] Allergies Allergy/AdvReac Type Severity Reaction Status Date / Time shellfish derived [Shellfish] Allergy Severe Dyspnea Verified 10/14/22 13:23 iodine Allergy Rash/Hives Verified 10/14/22 13:23 Sulfa (Sulfonamide Allergy Rash/Hives Verified 10/14/22 13:23 Antibiotics) Surgical - Exam Vital Signs Pulse Resp BP Pulse Ox 105 H 20 133/80 99 12/24/22 23:25 12/24/22 23:25 12/24/22 23:25 12/24/22 23:25 Results - Labs 12/26/22 06:10 12/26/22 06:10 Abnormal Lab Results - Last 24 Hours (Table) 12/25/22 12/26/22 12/26/22 Range/Units 22:52 01:12 06:10 Plt Count 125 L (150-450) k/uL Sodium (137-145) mmol/L Potassium (3.5-5.1) mmol/L Carbon Dioxide (22-30) mmol/L Creatinine (0.52-1.04) mg/dL Glucose (74-99) mg/dL POC Glucose (mg/dL) 133 H (70-110) mg/dL Calcium (8.4-10.2) mg/dL Urine Appearance Cloudy H (Clear) Urine Protein 2+ H (Negative) Urine Ketones 3+ H (Negative) Urine Blood Large H (Negative) Urine Bilirubin 1+ H (Negative) Ur Leukocyte Esterase Large H (Negative) Urine RBC >182 H (0-5) /hpf Urine WBC >182 H (0-5) /hpf Urine Bacteria Rare H (None) /hpf Urine Mucus Rare H (None) /hpf 12/26/22 Range/Units 06:10 Plt Count (150-450) k/uL Sodium 131 L (137-145) mmol/L Potassium 3.3 L (3.5-5.1) mmol/L Carbon Dioxide 21 L (22-30) mmol/L Creatinine 0.42 L (0.52-1.04) mg/dL Glucose 132 H (74-99) mg/dL POC Glucose (mg/dL) (70-110) mg/dL Calcium 8.0 L (8.4-10.2) mg/dL Urine Appearance (Clear) Urine Protein (Negative) Urine Ketones (Negative) Urine Blood (Negative) Urine Bilirubin (Negative) Ur Leukocyte Esterase (Negative) Urine RBC (0-5) /hpf Urine WBC (0-5) /hpf Urine Bacteria (None) /hpf Urine Mucus (None) /hpf Diabetes panel 12/26/22 Range/Units 06:10 Sodium 131 L (137-145) mmol/L Potassium 3.3 L (3.5-5.1) mmol/L Chloride 99 (98-107) mmol/L Carbon Dioxide 21 L (22-30) mmol/L BUN 8 (7-17) mg/dL Creatinine 0.42 L (0.52-1.04) mg/dL Glucose 132 H (74-99) mg/dL Calcium 8.0 L (8.4-10.2) mg/dL AST 32 (14-36) U/L ALT 19 (4-34) U/L Alkaline Phosphatase 67 (38-126) U/L Total Protein 6.6 (6.3-8.2) g/dL Albumin 3.8 (3.5-5.0) g/dL Calcium panel 12/26/22 Range/Units 06:10 Calcium 8.0 L (8.4-10.2) mg/dL Albumin 3.8 (3.5-5.0) g/dL Pituitary panel 12/26/22 Range/Units 06:10 Sodium 131 L (137-145) mmol/L Potassium 3.3 L (3.5-5.1) mmol/L Chloride 99 (98-107) mmol/L Carbon Dioxide 21 L (22-30) mmol/L BUN 8 (7-17) mg/dL Creatinine 0.42 L (0.52-1.04) mg/dL Glucose 132 H (74-99) mg/dL Calcium 8.0 L (8.4-10.2) mg/dL Adrenal panel 12/26/22 Range/Units 06:10 Sodium 131 L (137-145) mmol/L Potassium 3.3 L (3.5-5.1) mmol/L Chloride 99 (98-107) mmol/L Carbon Dioxide 21 L (22-30) mmol/L BUN 8 (7-17) mg/dL Creatinine 0.42 L (0.52-1.04) mg/dL Glucose 132 H (74-99) mg/dL Calcium 8.0 L (8.4-10.2) mg/dL Total Bilirubin 1.2 (0.2-1.3) mg/dL AST 32 (14-36) U/L ALT 19 (4-34) U/L Alkaline Phosphatase 67 (38-126) U/L Total Protein 6.6 (6.3-8.2) g/dL Albumin 3.8 (3.5-5.0) g/dL
[2022-12-27] MEDS: LORazepam 2 MG/ML INJ IV PRN ×2 (02:03→04:49)
[2022-12-27] MEDS: CALCIUM CARBONATE LIQUID 500 MG/5 ML CUP PO SCH ×3 (06:40→16:56)
[2022-12-27] MEDS: PANTOPRAZOLE 40 MG TABLET PO SCH ×2 (06:40→16:56)
[2022-12-27] MEDS: SODIUM BICARBONATE TAB 650 MG TAB PO SCH ×3 (08:37→21:04)
[2022-12-27] MEDS: CHOLECALCIFEROL 25 MCG (1000 IU) TABLET PO SCH (08:37)
[2022-12-27] MEDS: valACYclovir HCL 1,000 MG TABLET PO SCH ×2 (08:38→21:35)
[2022-12-27] MEDS: MULTIVITAMINS, THERA 1 EACH TAB PO SCH (08:38)
[2022-12-27] MEDS: MAGNESIUM OXIDE 400 MG TAB PO SCH ×2 (08:38→21:04)
[2022-12-27] MEDS: NICOTINE 21MG/24HR PATCH TRANSDERM SCH ×2 (08:38→08:44)
[2022-12-27] MEDS: METOPROLOL TARTRATE 25 MG TAB PO SCH ×2 (08:38→21:04)
[2022-12-27] MEDS: THIAMINE 100 MG TAB PO SCH (08:38)
[2022-12-27] MEDS: diazePAM 5 MG TAB PO SCH ×3 (08:38→21:04)
[2022-12-27 08:57] LABS: African American GFR (CKD) >90 (>60 ml/min/1.73 sqM); Anion Gap 6 mmol/L; Blood Urea Nitrogen 4 mg/dL (7-17); Calcium 8.4 mg/dL (8.4-10.2); Carbon Dioxide 30 mmol/L (22-30); Chloride 95 mmol/L (98-107); Glucose 106 mg/dL (74-99); Non-African American GFR(CKD) >90 (>60 ml/min/1.73 sqM); Potassium 2.9 mmol/L (3.5-5.1); Sodium 131 mmol/L (137-145)
[2022-12-27] MEDS ORDERED: PROPOFOL 10 MG/ML 20 ML VIAL IV ONE (09:52)
[2022-12-27] MEDS ORDERED: SODIUM CHLORIDE 0.9% 500 ML 500 ML IV ONE (10:06)
[2022-12-27] MEDS: POTASSIUM CHLORIDE ER 20 MEQ TAB.ER PO SCH ×2 (10:37→12:09)
[2022-12-27] MEDS: SUCRALFATE 1 GM TAB PO SCH ×2 (12:09→16:56)
[2022-12-27 18:38] LABS: African American GFR (CKD) >90 (>60 ml/min/1.73 sqM); Anion Gap 8 mmol/L; Blood Urea Nitrogen 4 mg/dL (7-17); Calcium 8.8 mg/dL (8.4-10.2); Carbon Dioxide 27 mmol/L (22-30); Chloride 99 mmol/L (98-107); Glucose 150 mg/dL (74-99); Non-African American GFR(CKD) >90 (>60 ml/min/1.73 sqM); Potassium 3.3 mmol/L (3.5-5.1); Sodium 134 mmol/L (137-145)
[2022-12-27] MEDS ORDERED: POTASSIUM CHLORIDE ER 20 MEQ TAB.ER PO STA (18:59)
--- NOTE | 2022-12-27 21:20 | P.PN ---
Progress Note - Text Progress Note Date: 12/27/22 Chief Complaint: Abdominal pain This is a 62-year-old patient, follows with Dr. Ogden . 2019. following a fall for alcohol intoxication. found to have a spinal cord concussion and transferred out to [facility]. Underwent surgery at [facility] was then Did well . Has subsequently has gone back on drinking excessive alcohol. multiple admissions for alcohol intoxication. Chronic conditions include gastritis, esophagitis, alcohol use disorder, alcoholic myopathy. Baseline uses a walker. April 2022 had a normal cardiac catheterization Patient now presents to the ER with nausea vomiting abdominal pain. She's had abdominal pain chronically but now getting worse. Has continued to drink whiskey. Symptoms became worse yesterday. No nausea vomiting and all pain. No blood in the vomiting. No fever no chills. She pretty much lays in the bed/so far. Does use a walker at baseline. Rather unkempt looking in the ER. Slight abdominal distention. The pain is more so in the upper abdomen. In the epigastric area. Alcohol level on presentation was 338 Admitted with acute alcohol intake, alcohol withdrawal syndrome, hyponatremia, acute and chronic abdominal pain. Metabolic acidosis. December 26: Remains on CIWA scale. Valium 5 mg 3 times a day. Anxious tremors. Vomiting better. Advance to full liquids. Spoke to the nurse to have the patient up in a chair. weak. Bicarbonate up to 21. Oral intake poor December 27: In bed. Before meals reflux. Poor oral intake. Tremors. Anxious. Told the nurse tells the patient up in a chair. Poor oral intake. Active Medications Acetaminophen (Acetaminophen Tab 500 Mg Tab) 500 mg PO Q6HR PRN PRN Reason: Fever and/ or Pain Calcium Carbonate/Glycine (Calcium Carbonate Liquid 500 Mg/5 Ml Cup) 500 mg PO TID-W/MEALS [facility] Last Admin: 12/27/22 16:56 Dose: Not Given Cholecalciferol (Cholecalciferol 25 Mcg (1000 Iu) Tablet) 50 mcg PO DAILY [facility] Last Admin: 12/27/22 08:37 Dose: 50 mcg Diazepam (Diazepam 5 Mg Tab) 5 mg PO TID [facility] Last Admin: 12/27/22 21:04 Dose: 5 mg Lorazepam (Lorazepam 2 Mg/Ml Inj) 1 mg IV Q2HR PRN PRN Reason: CIWA 8 or 9 Last Admin: 12/27/22 04:49 Dose: 1 mg Lorazepam (Lorazepam 2 Mg/Ml Inj) 1 mg IV Q1HR PRN PRN Reason: CIWA 10 to 15 Last Admin: 12/26/22 20:58 Dose: 1 mg Magnesium Oxide (Magnesium Oxide 400 Mg Tab) 400 mg PO BID [facility] Last Admin: 12/27/22 21:04 Dose: 400 mg Metoprolol Tartrate (Metoprolol Tartrate 25 Mg Tab) 25 mg PO BID [facility] Last Admin: 12/27/22 21:04 Dose: 25 mg Multivitamins (Multivitamins, Thera 1 Each Tab) 1 each PO DAILY [facility] Last Admin: 12/27/22 08:38 Dose: 1 each Naloxone HCl (Naloxone 0.4 Mg/Ml 1 Ml Vial) 0.2 mg IV Q2M PRN PRN Reason: Opioid Reversal Nicotine (Nicotine 21mg/24hr Patch) 1 patch TRANSDERM DAILY [facility] Last Admin: 12/27/22 08:44 Dose: Not Given Ondansetron HCl (Ondansetron 4 Mg/2 Ml Vial) 4 mg IVP Q8HR PRN PRN Reason: Nausea And Vomiting Last Admin: 12/26/22 06:11 Dose: 4 mg Pantoprazole Sodium (Pantoprazole 40 Mg Tablet) 40 mg PO AC-BID [facility] Last Admin: 12/27/22 16:56 Dose: Not Given Sodium Bicarbonate (Sodium Bicarbonate Tab 650 Mg Tab) 650 mg PO TID [facility] Last Admin: 12/27/22 21:04 Dose: 650 mg Sucralfate (Sucralfate 1 Gm Tab) 1 gm PO AC-TID [facility] Last Admin: 12/27/22 16:56 Dose: Not Given Thiamine HCl (Thiamine 100 Mg Tab) 100 mg PO DAILY [facility] Last Admin: 12/27/22 08:38 Dose: 100 mg Valacyclovir HCl (Valacyclovir Hcl 1,000 Mg Tablet) 1,000 mg PO BID [facility]; Protocol Last Admin: 12/27/22 08:38 Dose: 1,000 mg Past medical history to include: Spinal cord concussion secondary to fall, alcohol use disorder, chronic nicotine dependence, gastritis, esophagitis, alcoholic myopathy, normal cardiac catheterization April 2022 Social history: Lives with her ,'s drinks at least one-to pint of whiskey a day, smoking variable amounts since 1997 Family history: Mother of melanoma Physical examination: VITAL SIGNS: 98.7, 91, 16, 168/82, 96% room air GENERAL: BMI 23.6 Laying in bed anxious, tired EYES: Pupils equal. Conjunctiva normal. HEENT: External appearance of nose and ears normal, oral cavity dry mucous membranes NECK: JVD not raised; masses not palpable. HEART: First and second heart sounds are normal; no edema. LUNGS:[ Respiratory rate increased; decreased breath sounds, ABDOMEN: Soft, less distention with epigastric mildl tenderness, no guarding rigidity liver spleen not palpable, no masses palpable. PSYCH: AO 3, mood affect anxious MUSCULAR skeletal: Muscle muscle mass NEUROLOGICAL: Cranial nerves grossly intact; no facial asymmetry, tremors. INVESTIGATIONS, reviewed in the clinical context: December 27: Sodium 131 potassium 2.9 creatinine 0.42 Abdominal x-ray: Nonobstructive gas pattern December 26: White count 6.9 hemoglobin 13.1 platelets 125 sodium 131 potassium 3.3 creatinine 0.42 bicarbonate 21 White count 11.4 hemoglobin 15.1 platelets 239 sodium 137 potassium 4.4 bicarb 6 BUN 13 creatinine 0.87 blood glucose 65 Lactic acid 5.[address] abdomen pelvis: Mild thickening of the sigmoid colon. Umbilical hernia containing fat. DJD changes of the spine. Hepatic steatosis. No splenomegaly. Colonic diverticulosis. Mild thickening of the cecum and proximal ascending colon. Assessment and plan: -Acute alcohol withdrawal syndrome:, Anxious tremors . CIWA scale. 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 Nutritional supplement. Stop alcohol. 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 Twice a day. Tums. GI services not available in hospital. Consult surgery. CT abdomen and nonspecific findings. -Hyponatremia, likely hypoosmolar from poor oral fluid intake: full liquids -Moderate protein calorie malnutrition Low albumin. Decreased muscle mass. Ensure 3 times a day -COPD in a smoker: DuoNeb -Severe metabolic acidosis.: Improving *Sodium bicarbonate drip discontinued -Lactic acidosis type II. From volume depletion. No sepsis. 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 Valium 5 mg 3 times a day for withdrawals. Full liquid diet. Up in chair. Multivitamins. PTOT Poor oral intake
--- NOTE | 2022-12-27 23:45 | P.PCN ---
Date of Procedure: 12/27/22 Description of Procedure: PREOPERATIVE DIAGNOSIS: Gastritis Epigastric abdominal pain Alcohol abuse POSTOPERATIVE DIAGNOSIS: Gastroesophageal reflux disease with erosive esophagitis Esophageal ulcers Chronic gastritis with bleeding Duodenitis OPERATION: Esophagogastroduodenoscopy with biopsies of duodenum and stomach and esophagus SURGEON: Rimma Hartmann MD ANESTHESIA: MAC. INDICATIONS: The patient is a 62-year-old female who presents with gastritis and epigastric abdominal pain. Benefits and risks of the procedure were described. Informed consent was obtained. DESCRIPTION: The patient was brought into the endoscopy suite and laid in the left lateral decubitus position. An Olympus gastroscope was passed along the posterior oropharynx down to the distal esophagus where the squamocolumnar junction was encountered at 33 cm from the incisors. The stomach was entered and no bile reflux was found. Additional findings are listed below. The first through third portion of the duodenum was examined with duodenitis. Retroflexion of the scope confirmed Hill grade 3 lower esophageal valve. The squamocolumnar junction demonstrated LA grade C erosive esophagitis. The stomach was desufflated. The patient tolerated the procedure well. FINDINGS: Squamocolumnar junction 38 cm from the incisors. Diaphragmatic hiatus at 40 cm. Hiatal hernia, 2 cm Hill grade 3 lower esophageal valve. LA grade C erosive esophagitis with cold forcep biopsies obtained No esophageal varices Active duodenitis with biopsies obtained. Gastritis with active bleeding, biopsies obtained RECOMMENDATIONS: 1. Carafate added for gastritis and duodenitis 2. Recommend additional workup for gallbladder
[2022-12-28] MEDS: PANTOPRAZOLE 40 MG TABLET PO SCH ×2 (06:40→18:20)
[2022-12-28] MEDS: CALCIUM CARBONATE LIQUID 500 MG/5 ML CUP PO SCH ×3 (06:40→18:20)
[2022-12-28] MEDS: SUCRALFATE 1 GM TAB PO SCH ×3 (06:40→18:21)
[2022-12-28] MEDS: NICOTINE 21MG/24HR PATCH TRANSDERM SCH (08:45)
[2022-12-28] MEDS: SODIUM BICARBONATE TAB 650 MG TAB PO SCH ×3 (08:45→21:57)
[2022-12-28] MEDS: MAGNESIUM OXIDE 400 MG TAB PO SCH ×2 (08:45→21:58)
[2022-12-28] MEDS: diazePAM 5 MG TAB PO SCH ×3 (08:45→21:57)
[2022-12-28] MEDS: MULTIVITAMINS, THERA 1 EACH TAB PO SCH (08:45)
[2022-12-28] MEDS: valACYclovir HCL 1,000 MG TABLET PO SCH ×2 (08:45→21:57)
[2022-12-28] MEDS: METOPROLOL TARTRATE 25 MG TAB PO SCH ×2 (08:46→21:58)
[2022-12-28] MEDS: CHOLECALCIFEROL 25 MCG (1000 IU) TABLET PO SCH (08:46)
[2022-12-28] MEDS: THIAMINE 100 MG TAB PO SCH (08:46)
[2022-12-28 08:50] LABS: African American GFR (CKD) >90 (>60 ml/min/1.73 sqM); Anion Gap 6 mmol/L; Blood Urea Nitrogen 7 mg/dL (7-17); Calcium 8.9 mg/dL (8.4-10.2); Carbon Dioxide 27 mmol/L (22-30); Chloride 101 mmol/L (98-107); Glucose 92 mg/dL (74-99); Non-African American GFR(CKD) >90 (>60 ml/min/1.73 sqM); Sodium 134 mmol/L (137-145)
[2022-12-28 08:59] LABS: Potassium 4.2 mmol/L (3.5-5.1)
[2022-12-28] MEDS: ACETAMINOPHEN TAB 500 MG TAB PO PRN ×2 (12:06→22:00)
--- NOTE | 2022-12-28 15:50 | P.PN ---
Subjective Progress Note Date: 12/28/22 CHIEF COMPLAINT: Epigastric abdominal pain HISTORY OF PRESENT ILLNESS: Patient is status post EGD with biopsy of the duodenum, stomach and esophagus. Results had shown GERD with erosive esophagitis, esophageal ulcers, chronic gastritis with bleeding and duodenitis. Patient has been started on Carafate for the gastritis and duodenitis. Further workup for gallbladder recommended. Patient lying in bed comfortably. No abdominal pain at this time. She's asking when she could eat. Denies any nausea vomiting. PHYSICAL EXAM: VITAL SIGNS: Reviewed GENERAL: Well-developed in no acute distress. HEENT: No sclera icterus. Extraocular movements grossly intact. Moist buccal mucosa. Head is atraumatic, normocephalic. Hears conversational speech. No nasal drainage. NECK: Supple without lymphadenopathy. CHEST: Non-labored respirations and equal bilateral excursions. CARDIOVASCULAR: Palpable 2+ radial pulses. ABDOMEN: Soft. Nondistended. Mild epigastric tenderness. MUSCULOSKELETAL: No clubbing or cyanosis. NEUROLOGIC: No focal or lateralizing signs. Cranial nerves II through XII randa sly intact. PSYCH: Appropriate affect. Alert and oriented to person, place and time. SKIN: Well perfused. Good skin turgor. ASSESSMENT: 1. Epigastric abdominal pain 2. Gastroesophageal reflux disease with erosive esophagitis 3. Esophageal ulcers 4. Chronic gastritis with bleeding 5. Duodenitis PLAN: -Patient scheduled for gallbladder ultrasound and HIDA scan for further workup to rule out any gallbladder disease, tubing to her abdominal pain -Continue Carafate for the gastritis and duodenitis -Continue Protonix -Continue supportive care -Continue full liquid diet Physician Highway Technician note has been reviewed by physician. Signing provider agrees with the documented findings, assessment, and plan of care. Please see additional documentation below Patient complains of bandlike pain upper abdomen ongoing for several months worsening in the last several days. Upper endoscopy demonstrates multiple pathology including esophageal ulcers, gastritis, duodenitis with biopsy taken. Biopsies are pending at this time. Additional studies including ultrasound of the gallbladder obtained. Images from ultrasound review demonstrates no gallstones. This is my independent interpretation. HIDA scan without acute cholecystitis. Recommend Carafate 3 times daily. No additional surgical intervention at this time. Alcohol cessation advised Objective - Vital Signs Vital signs: Vital Signs Temp 97.8 F 12/28/22 15:33 Pulse 83 12/28/22 15:33 Resp 16 12/28/22 15:33 BP 125/83 12/28/22 15:33 Pulse Ox 98 12/28/22 15:33 FiO2 Intake & Output 12/27/22 12/28/22 12/28/22 18:59 06:59 18:59 Intake Total 580 240 Output Total 750 Balance 580 -750 240 Intake: IV 100 Oral 480 240 Output: Urine 750 Other: Voiding Method External Catheter External Catheter External Catheter # Voids 2 # Bowel Movements 1 - Labs CBC & Chem 7: 12/26/22 06:10 12/28/22 06:26 Labs: Abnormal Lab Results - Last 24 Hours (Table) 12/27/22 12/28/22 Range/Units 17:32 06:26 Sodium 134 L 134 L (137-145) mmol/L Potassium 3.3 L (3.5-5.1) mmol/L BUN 4 L (7-17) mg/dL Creatinine 0.40 L 0.39 L (0.52-1.04) mg/dL Glucose 150 H (74-99) mg/dL
--- NOTE | 2022-12-28 17:33 | US ---
EXAMINATION TYPE: US gallbladder DATE OF EXAM: 12/28/2022 COMPARISON: CT 12/25/2022 CLINICAL INDICATION: Female, 62 years old with history of RUQ abdominal pain; Generalized pain. TECHNIQUE: Multiple sonographic images of the right upper quadrant are obtained. FINDINGS: EXAM MEASUREMENTS: Liver Length: 20.4 cm Gallbladder Wall: 0.2 cm CBD: 0.4 cm Right Kidney: 11.8 x 4.4 x 3.8 cm Pancreas: Heterogenous Liver: Coarse. Enlarged in size. Increased echotexture. Gallbladder: Enlarged in size. Layering sludge suggested on a few images. Evidence for sonographic Oswald's sign: neg CBD: wnl Right Kidney: No hydronephrosis or masses seen IMPRESSION: Hepatocellular disease commonly relating to hepatic steatosis. High density material within the gallbladder on prior CT correlates to what is felt to represent bili adelaida sludge no evidence for shadowing calculus.
--- NOTE | 2022-12-28 17:50 | NM ---
EXAMINATION TYPE: NM hepatobiliary wo EF DATE OF EXAM: 12/28/2022 COMPARISON: Gallbladder ultrasound 12/28/2022 HISTORY: Right upper quadrant abdominal pain TECHNIQUE: After the intravenous administration of 5.1 mCi Tc 99m Mebrofenin hepatobiliary scintigrap hy is performed. Immediate images post injection. FINDINGS: Normal uptake of radiotracer was identified within the liver within 5 minutes with excretion into the hepatic and common biliary ducts within 6 minutes. There was normal progressive washout of the liver over the course of the study. Radiotracer uptake within the gallbladder at 16 minutes as well as sma ll bowel activity was identified at 14 minutes. IMPRESSION: No evidence for cystic or common bile duct obstruction to suggest acute cholecystitis.
--- NOTE | 2022-12-28 18:14 | P.PN ---
Progress Note - Text Progress Note Date: 12/28/22 Chief Complaint: Abdominal pain This is a 62-year-old patient, follows with Dr. Ogden . 2019. following a fall for alcohol intoxication. found to have a spinal cord concussion and transferred out to [facility]. Underwent surgery at [facility] was then Did well . Has subsequently has gone back on drinking excessive alcohol. multiple admissions for alcohol intoxication. Chronic conditions include gastritis, esophagitis, alcohol use disorder, alcoholic myopathy. Baseline uses a walker. April 2022 had a normal cardiac catheterization Patient now presents to the ER with nausea vomiting abdominal pain. She's had abdominal pain chronically but now getting worse. Has continued to drink whiskey. Symptoms became worse yesterday. No nausea vomiting and all pain. No blood in the vomiting. No fever no chills. She pretty much lays in the bed/so far. Does use a walker at baseline. Rather unkempt looking in the ER. Slight abdominal distention. The pain is more so in the upper abdomen. In the epigastric area. Alcohol level on presentation was 338 Admitted with acute alcohol intake, alcohol withdrawal syndrome, hyponatremia, acute and chronic abdominal pain. Metabolic acidosis. December 26: Remains on CIWA scale. Valium 5 mg 3 times a day. Anxious tremors. Vomiting better. Advance to full liquids. Spoke to the nurse to have the patient up in a chair. weak. Bicarbonate up to 21. Oral intake poor December 27: In bed. Before meals reflux. Poor oral intake. Tremors. Anxious. Told the nurse tells the patient up in a chair. Poor oral intake. December 28: In bed. Looking better today. Did not throw up today. Had about 50% of her lunch. HIDA scan ordered by surgery unremarkable. Abdominal ultrasound: Hepatocellular disease. Gallbladder suggestive of biliary sludge. Enlarged. Negative Oswald sign. EGD yesterday by Dr. Alcocer: Grade C erosive esophagitis. Esophageal ulcers. Biopsies done. Active duodenitis gastritis. Will DC Carafate has patient is only on PPI. No additional benefit. Also cessation of all, currently. Cutback Valium 2 mg times a day from tomorrow. Patient walked 40 feet with rolling walker. Active Medications Acetaminophen (Acetaminophen Tab 500 Mg Tab) 500 mg PO Q6HR PRN PRN Reason: Fever and/ or Pain Last Admin: 12/28/22 12:06 Dose: 500 mg Calcium Carbonate/Glycine (Calcium Carbonate Liquid 500 Mg/5 Ml Cup) 500 mg PO TID-W/MEALS [facility] Last Admin: 12/28/22 12:06 Dose: 500 mg Cholecalciferol (Cholecalciferol 25 Mcg (1000 Iu) Tablet) 50 mcg PO DAILY [facility] Last Admin: 12/28/22 08:46 Dose: 50 mcg Diazepam (Diazepam 5 Mg Tab) 5 mg PO TID [facility] Stop: 12/28/22 23:59 Last Admin: 12/28/22 15:34 Dose: 5 mg Diazepam (Diazepam 2 Mg Tab) 2 mg PO TID [facility] Lorazepam (Lorazepam 2 Mg/Ml Inj) 1 mg IV Q2HR PRN PRN Reason: CIWA 8 or 9 Last Admin: 12/27/22 04:49 Dose: 1 mg Lorazepam (Lorazepam 2 Mg/Ml Inj) 1 mg IV Q1HR PRN PRN Reason: CIWA 10 to 15 Last Admin: 12/26/22 20:58 Dose: 1 mg Magnesium Oxide (Magnesium Oxide 400 Mg Tab) 400 mg PO BID [facility] Last Admin: 12/28/22 08:45 Dose: 400 mg Metoprolol Tartrate (Metoprolol Tartrate 25 Mg Tab) 25 mg PO BID [facility] Last Admin: 12/28/22 08:46 Dose: 25 mg Multivitamins (Multivitamins, Thera 1 Each Tab) 1 each PO DAILY [facility] Last Admin: 12/28/22 08:45 Dose: 1 each Naloxone HCl (Naloxone 0.4 Mg/Ml 1 Ml Vial) 0.2 mg IV Q2M PRN PRN Reason: Opioid Reversal Nicotine (Nicotine 21mg/24hr Patch) 1 patch TRANSDERM DAILY [facility] Last Admin: 12/28/22 08:45 Dose: Not Given Ondansetron HCl (Ondansetron 4 Mg/2 Ml Vial) 4 mg IVP Q8HR PRN PRN Reason: Nausea And Vomiting Last Admin: 12/26/22 06:11 Dose: 4 mg Pantoprazole Sodium (Pantoprazole 40 Mg Tablet) 40 mg PO AC-BID [facility] Last Admin: 12/28/22 06:40 Dose: 40 mg Sodium Bicarbonate (Sodium Bicarbonate Tab 650 Mg Tab) 650 mg PO TID [facility] Last Admin: 12/28/22 15:34 Dose: 650 mg Thiamine HCl (Thiamine 100 Mg Tab) 100 mg PO DAILY [facility] Last Admin: 12/28/22 08:46 Dose: 100 mg Valacyclovir HCl (Valacyclovir Hcl 1,000 Mg Tablet) 1,000 mg PO BID [facility]; Protocol Last Admin: 12/28/22 08:45 Dose: 1,000 mg Past medical history to include: Spinal cord concussion secondary to fall, alcohol use disorder, chronic nicotine dependence, gastritis, esophagitis, alcoholic myopathy, normal cardiac catheterization April 2022 Social history: Lives with her ,'s drinks at least one-to pint of whiskey a day, smoking variable amounts since 1997 Family history: Mother of melanoma Physical examination: VITAL SIGNS: 97.5, 91, 18, 134/85, 97% room air GENERAL: BMI 23.6 Laying in bed looking better EYES: Pupils equal. Conjunctiva normal. HEENT: External appearance of nose and ears normal, oral cavity dry mucous membranes NECK: JVD not raised; masses not palpable. HEART: First and second heart sounds are normal; no edema. LUNGS:[ Respiratory rate increased; decreased breath sounds, ABDOMEN: Soft, less distention with epigastric mildl tenderness, no guarding rigidity liver spleen not palpable, no masses palpable. PSYCH: AO 3, mood affect less anxious MUSCULAR skeletal: Muscle muscle mass NEUROLOGICAL: Cranial nerves grossly intact; no facial asymmetry, tremors. INVESTIGATIONS, reviewed in the clinical context: December 28: Potassium 4.2 creatinine 0.39 EGD [December 27] esophagitis with esophageal ulcer. Gastritis with some bleeding. Duodenitis December 27: Sodium 131 potassium 2.9 creatinine 0.42 Abdominal x-ray: Nonobstructive gas pattern December 26: White count 6.9 hemoglobin 13.1 platelets 125 sodium 131 potassium 3.3 creatinine 0.42 bicarbonate 21 White count 11.4 hemoglobin 15.1 platelets 239 sodium 137 potassium 4.4 bicarb 6 BUN 13 creatinine 0.87 blood glucose 65 Lactic acid 5.[address] abdomen pelvis: Mild thickening of the sigmoid colon. Umbilical hernia containing fat. DJD changes of the spine. Hepatic steatosis. No splenomegaly. Colonic diverticulosis. Mild thickening of the cecum and proximal ascending colon. Assessment and plan: -Acute alcohol withdrawal syndrome:, Anxious tremors: Improving . CIWA scale. 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 Nutritional supplement. Stop alcohol. 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 PPI. Twice a day. Tums. GI services not available in hospital. Underwent EGD by Dr. Alcocer CT abdomen and nonspecific findings. -Hyponatremia, likely hypoosmolar from poor oral fluid intake: Better full liquids -Moderate protein calorie malnutrition Low albumin. Decreased muscle mass. Ensure 3 times a day -COPD in a smoker: DuoNeb -Severe metabolic acidosis.: Improving *Sodium bicarbonate drip discontinued -Lactic acidosis type II. From volume depletion. No sepsis. 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 Decreased Valium 2 mg 3 times a day for withdrawals. Full liquid diet. PTOT. Anticipate discharge in 1-2 days depending on tolerating diet
[2022-12-29] MEDS: CALCIUM CARBONATE LIQUID 500 MG/5 ML CUP PO SCH ×3 (08:50→17:37)
[2022-12-29] MEDS: valACYclovir HCL 1,000 MG TABLET PO SCH ×2 (08:51→21:32)
[2022-12-29] MEDS: METOPROLOL TARTRATE 25 MG TAB PO SCH ×2 (08:51→21:32)
[2022-12-29] MEDS: PANTOPRAZOLE 40 MG TABLET PO SCH ×2 (08:51→17:37)
[2022-12-29] MEDS: CHOLECALCIFEROL 25 MCG (1000 IU) TABLET PO SCH (08:51)
[2022-12-29] MEDS: MAGNESIUM OXIDE 400 MG TAB PO SCH ×2 (08:51→21:32)
[2022-12-29] MEDS: SODIUM BICARBONATE TAB 650 MG TAB PO SCH ×3 (08:51→21:32)
[2022-12-29] MEDS: diazePAM 2 MG TAB PO SCH ×3 (08:51→21:32)
[2022-12-29] MEDS: MULTIVITAMINS, THERA 1 EACH TAB PO SCH (08:51)
[2022-12-29] MEDS: THIAMINE 100 MG TAB PO SCH (08:51)
[2022-12-29] MEDS: NICOTINE 21MG/24HR PATCH TRANSDERM SCH (08:52)
[2022-12-29] MEDS: SUCRALFATE 1 GM TAB PO SCH ×2 (11:43→17:37)
--- NOTE | 2022-12-29 15:11 | P.PN ---
Subjective Progress Note Date: 12/29/22 CHIEF COMPLAINT: Epigastric abdominal pain HISTORY OF PRESENT ILLNESS: Patient is status post EGD with biopsy of the duodenum, stomach and esophagus. Results had shown GERD with erosive esophagitis, esophageal ulcers, chronic gastritis with bleeding and duodenitis. Patient has been started on Carafate for the gastritis and duodenitis. Patient reports that she is feeling better. She denies any nausea or vomiting. She has decrease in her epigastric pain. Gallbladder ultrasound Petrucelli disease, likely relating to hepatic steatosis. High density material within the gallbladder on prior CT correlates to what is felt to represent biliary sludge no evidence of shadowing calculus. HIDA scan shows no evidence for cystic common bile duct obstruction to suggest acute cholecystitis. Afebrile. PHYSICAL EXAM: VITAL SIGNS: Reviewed GENERAL: Well-developed in no acute distress. HEENT: No sclera icterus. Extraocular movements grossly intact. Moist buccal mucosa. Head is atraumatic, normocephalic. Hears conversational speech. No nasal drainage. NECK: Supple without lymphadenopathy. CHEST: Non-labored respirations and equal bilateral excursions. CARDIOVASCULAR: Palpable 2+ radial pulses. ABDOMEN: Soft. Nondistended. Mild epigastric tenderness. MUSCULOSKELETAL: No clubbing or cyanosis. NEUROLOGIC: No focal or lateralizing signs. Cranial nerves II through XII grossly intact. PSYCH: Appropriate affect. Alert and oriented to person, place and time. SKIN: Well perfused. Good skin turgor. ASSESSMENT: 1. Epigastric abdominal pain 2. Gastroesophageal reflux disease with erosive esophagitis 3. Esophageal ulcers 4. Chronic gastritis with bleeding 5. Duodenitis PLAN: -Add Carafate for the gastritis and duodenitis -Continue Protonix -Medicine service has advance diet -No further surgical intervention planned -Recommend alcohol cessation Physician [employer] Specialist note has been reviewed by physician. Signing provider agrees with the documented findings, assessment, and plan of care. Objective - Vital Signs Vital signs: Vital Signs Temp 99.0 F 12/29/22 12:12 Pulse 80 12/29/22 12:12 Resp 16 12/29/22 12:12 BP 111/69 12/29/22 12:12 Pulse Ox 96 12/29/22 12:12 FiO2 Intake & Output 12/28/22 12/29/22 12/29/22 18:59 06:59 18:59 Intake Total 240 240 Balance 240 240 Intake: Oral 240 240 Other: Voiding Method External Catheter Toilet # Voids 1 # Bowel Movements 1 - Labs CBC & Chem 7: 12/26/22 06:10 12/28/22 06:26
--- NOTE | 2022-12-29 20:50 | P.PN ---
Progress Note - Text Progress Note Date: 12/29/22 Chief Complaint: Abdominal pain This is a 62-year-old patient, follows with Dr. Ogden . 2019. following a fall for alcohol intoxication. found to have a spinal cord concussion and transferred out to [facility]. Underwent surgery at [facility] was then Did well . Has subsequently has gone back on drinking excessive alcohol. multiple admissions for alcohol intoxication. Chronic conditions include gastritis, esophagitis, alcohol use disorder, alcoholic myopathy. Baseline uses a walker. April 2022 had a normal cardiac catheterization Patient now presents to the ER with nausea vomiting abdominal pain. She's had abdominal pain chronically but now getting worse. Has continued to drink whiskey. Symptoms became worse yesterday. No nausea vomiting and all pain. No blood in the vomiting. No fever no chills. She pretty much lays in the bed/so far. Does use a walker at baseline. Rather unkempt looking in the ER. Slight abdominal distention. The pain is more so in the upper abdomen. In the epigastric area. Alcohol level on presentation was 338 Admitted with acute alcohol intake, alcohol withdrawal syndrome, hyponatremia, acute and chronic abdominal pain. Metabolic acidosis. December 26: Remains on CIWA scale. Valium 5 mg 3 times a day. Anxious tremors. Vomiting better. Advance to full liquids. Spoke to the nurse to have the patient up in a chair. weak. Bicarbonate up to 21. Oral intake poor December 27: In bed. Before meals reflux. Poor oral intake. Tremors. Anxious. Told the nurse tells the patient up in a chair. Poor oral intake. December 28: In bed. Looking better today. Did not throw up today. Had about 50% of her lunch. HIDA scan ordered by surgery unremarkable. Abdominal ultrasound: Hepatocellular disease. Gallbladder suggestive of biliary sludge. Enlarged. Negative Oswald sign. EGD yesterday by Dr. Alcocer: Grade C erosive esophagitis. Esophageal ulcers. Biopsies done. Active duodenitis gastritis. Will DC Carafate has patient is only on PPI. No additional benefit. Also cessation of all, currently. Cutback Valium 2 mg times a day from tomorrow. Patient walked 40 feet with rolling walker. December 29: Eating much better. Diet advanced to soft bland. Increase activity. Discussed with patient. If remain stable including hemoglobin the discharged tomorrow Active Medications Acetaminophen (Acetaminophen Tab 500 Mg Tab) 500 mg PO Q6HR PRN PRN Reason: Fever and/ or Pain Last Admin: 12/28/22 22:00 Dose: 500 mg Calcium Carbonate/Glycine (Calcium Carbonate Liquid 500 Mg/5 Ml Cup) 500 mg PO TID-W/MEALS [facility] Last Admin: 12/29/22 17:37 Dose: 500 mg Cholecalciferol (Cholecalciferol 25 Mcg (1000 Iu) Tablet) [address] [facility] Last Admin: 12/29/22 08:51 Dose: 50 mcg Diazepam (Diazepam 2 Mg Tab) [address] [facility] Last Admin: 12/29/22 17:37 Dose: 2 mg Lorazepam (Lorazepam 2 Mg/Ml Inj) 1 mg IV Q2HR PRN PRN Reason: CIWA 8 or 9 Last Admin: 12/27/22 04:49 Dose: 1 mg Lorazepam (Lorazepam 2 Mg/Ml Inj) 1 mg IV Q1HR PRN PRN Reason: CIWA 10 to 15 Last Admin: 12/26/22 20:58 Dose: 1 mg Magnesium Oxide (Magnesium Oxide 400 Mg Tab) [address] [facility] Last Admin: 12/29/22 08:51 Dose: 400 mg Metoprolol Tartrate (Metoprolol Tartrate 25 Mg Tab) [address] [facility] Last Admin: 12/29/22 08:51 Dose: 25 mg Multivitamins (Multivitamins, Thera 1 Each Tab) [address] [facility] Last Admin: 12/29/22 08:51 Dose: 1 each Naloxone HCl (Naloxone 0.4 Mg/Ml 1 Ml Vial) 0.2 mg IV Q2M PRN PRN Reason: Opioid Reversal Nicotine (Nicotine 21mg/24hr Patch) [address] [facility] Last Admin: 12/29/22 08:52 Dose: Not Given Ondansetron HCl (Ondansetron 4 Mg/2 Ml Vial) 4 mg IVP Q8HR PRN PRN Reason: Nausea And Vomiting Last Admin: 12/26/22 06:11 Dose: 4 mg Pantoprazole Sodium (Pantoprazole 40 Mg Tablet) 40 mg PO AC-BID [facility] Last Admin: 12/29/22 17:37 Dose: 40 mg Sodium Bicarbonate (Sodium Bicarbonate Tab 650 Mg Tab) [address] [facility] Last Admin: 12/29/22 17:37 Dose: 650 mg Sucralfate (Sucralfate 1 Gm Tab) [address] gm PO AC-TID [facility] Last Admin: 12/29/22 17:37 Dose: 1 gm Thiamine HCl (Thiamine 100 Mg Tab) [address] [facility] Last Admin: 12/29/22 08:51 Dose: 100 mg Valacyclovir HCl (Valacyclovir Hcl 1,000 Mg Tablet) 1,[address] [facility]; Protocol Last Admin: 12/29/22 08:51 Dose: 1,000 mg Past medical history to include: Spinal cord concussion secondary to fall, alcohol use disorder, chronic nicotine dependence, gastritis, esophagitis, alcoholic myopathy, normal cardiac catheterization April 2022 Social history: Lives with her ,'s drinks at least one-to pint of whiskey a day, smoking variable amounts since 1997 Family history: Mother of melanoma Physical examination: VITAL SIGNS: 99, 80, 16, 111/69, 96% room air GENERAL: BMI 23.6 looking better EYES: Pupils equal. Conjunctiva normal. HEENT: External appearance of nose and ears normal, oral cavity dry mucous membranes NECK: JVD not raised; masses not palpable. HEART: First and second heart sounds are normal; no edema. LUNGS:[ Respiratory rate increased; decreased breath sounds, ABDOMEN: Soft, less distention with epigastric mildl tenderness, no guarding rigidity liver spleen not palpable, no masses palpable. PSYCH: AO 3, mood affect less anxious MUSCULAR skeletal: Decreased muscle mass NEUROLOGICAL: Cranial nerves grossly intact; no facial asymmetry, tremors. Improved INVESTIGATIONS, reviewed in the clinical context: December 28: Potassium 4.2 creatinine 0.39 EGD [December 27] esophagitis with esophageal ulcer. Gastritis with some bleeding. Duodenitis December 27: Sodium 131 potassium 2.9 creatinine 0.42 Abdominal x-ray: Nonobstructive gas pattern December 26: White count 6.9 hemoglobin 13.1 platelets 125 sodium 131 potassium 3.3 creatinine 0.42 bicarbonate 21 White count 11.4 hemoglobin 15.1 platelets 239 sodium 137 potassium 4.4 bicarb 6 BUN 13 creatinine 0.87 blood glucose 65 Lactic acid 5.[address] abdomen pelvis: Mild thickening of the sigmoid colon. Umbilical hernia containing fat. DJD changes of the spine. Hepatic steatosis. No splenomegaly. Colonic diverticulosis. Mild thickening of the cecum and proximal ascending colon. Assessment and plan: -Acute alcohol withdrawal syndrome:, Anxious tremors: Better . CIWA scale. 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 Nutritional supplement. Stop alcohol. 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 PPI. Twice a day. Tums. GI services not available in hospital. Underwent EGD by Dr. Alcocer CT abdomen and nonspecific findings. -Hyponatremia, likely hypoosmolar from poor oral fluid intake: Better Advance diet -Moderate protein calorie malnutrition Low albumin. Decreased muscle mass. Ensure 3 times a day -COPD in a smoker: DuoNeb -Severe metabolic acidosis.: Improving *Sodium bicarbonate drip discontinued -Lactic acidosis type II. From volume depletion. No sepsis. 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 Advanced which are chronic. Walking better. Discussed case management go home. Patient counseled about alcohol.
[2022-12-30 02:12] VITALS: TEMP 98.8
[2022-12-30 07:31] VITALS: BP 147/93; PULSE 74; RESP 18
[2022-12-30 08:08] LABS: Basophils % (A) 1 %; Eosinophils # (A) 0.2 k/uL (0-0.7); Eosinophils % (A) 2 %; HCT 40.8 % (34.0-46.0); HGB 13.9 gm/dL (11.4-16.0); Lymphocytes # (A) 1.9 k/uL (1.0-4.8); Lymphocytes % (A) 27 %; MCH 33.4 pg (25.0-35.0); MCV 98.2 fL (80.0-100.0); Monocytes # (A) 0.8 k/uL (0-1.0); Monocytes % (A) 11 %; Neutrophils # (A) 4.2 k/uL (1.3-7.7); Neutrophils % (A) 58 %; Platelet Count 170 k/uL (150-450); RBC 4.16 m/uL (3.80-5.40); RDW 14.3 % (11.5-15.5); WBC 7.3 k/uL (3.8-10.6)
[2022-12-30] MEDS: ACETAMINOPHEN TAB 500 MG TAB PO PRN (08:18)
[2022-12-30] MEDS: SODIUM BICARBONATE TAB 650 MG TAB PO SCH (09:05)
[2022-12-30] MEDS: CHOLECALCIFEROL 25 MCG (1000 IU) TABLET PO SCH (09:05)
[2022-12-30] MEDS: PANTOPRAZOLE 40 MG TABLET PO SCH (09:06)
[2022-12-30] MEDS: MULTIVITAMINS, THERA 1 EACH TAB PO SCH (09:06)
[2022-12-30] MEDS: THIAMINE 100 MG TAB PO SCH (09:06)
[2022-12-30] MEDS: MAGNESIUM OXIDE 400 MG TAB PO SCH (09:06)
[2022-12-30] MEDS: SUCRALFATE 1 GM TAB PO SCH ×2 (09:06→12:09)
[2022-12-30] MEDS: METOPROLOL TARTRATE 25 MG TAB PO SCH (09:06)
[2022-12-30] MEDS: NICOTINE 21MG/24HR PATCH TRANSDERM SCH (09:10)
[2022-12-30] MEDS: valACYclovir HCL 1,000 MG TABLET PO SCH (09:23)
[2022-12-30] MEDS: CALCIUM CARBONATE LIQUID 500 MG/5 ML CUP PO SCH ×2 (09:23→12:09)
--- NOTE | 2022-12-30 16:16 | P.DS ---
Providers Date of admission: 12/25/22 05:26 Expected date of discharge: 12/30/22 Attending physician: Oswaldo Rush Primary care physician: Danny Ogden [facility] Course: Chief Complaint: Abdominal pain This is a 62-year-old patient, follows with Dr. Ogden . 2019. following a fall for alcohol intoxication. found to have a spinal cord concussion and transferred out to [facility]. Underwent surgery at [facility] was then Did well . Has subsequently has gone back on drinking excessive alcohol. multiple admissions for alcohol intoxication. Chronic conditions include gastritis, esophagitis, alcohol use disorder, alcoholic myopathy. Baseline uses a walker. April 2022 had a normal cardiac catheterization Patient now presents to the ER with nausea vomiting abdominal pain. She's had abdominal pain chronically but now getting worse. Has continued to drink whiskey. Symptoms became worse yesterday. No nausea vomiting and all pain. No blood in the vomiting. No fever no chills. She pretty much lays in the bed/so far. Does use a walker at baseline. Rather unkempt looking in the ER. Slight abdominal distention. The pain is more so in the upper abdomen. In the epigastric area. Alcohol level on presentation was 338 Admitted with acute alcohol intake, alcohol withdrawal syndrome, hyponatremia, acute and chronic abdominal pain. Metabolic acidosis. December 26: Remains on CIWA scale. Valium 5 mg 3 times a day. Anxious tremors. Vomiting better. Advance to full liquids. Spoke to the nurse to have the patient up in a chair. weak. Bicarbonate up to 21. Oral intake poor December 27: In bed. Before meals reflux. Poor oral intake. Tremors. Anxious. Told the nurse tells the patient up in a chair. Poor oral intake. December 28: In bed. Looking better today. Did not throw up today. Had about 50% of her lunch. HIDA scan ordered by surgery unremarkable. Abdominal ultrasound: Hepatocellular disease. Gallbladder suggestive of biliary sludge. Enlarged. Negative Oswald sign. EGD yesterday by Dr. Alcocer: Grade C erosive esophagitis. Esophageal ulcers. Biopsies done. Active duodenitis gastritis. Will DC Carafate has patient is only on PPI. No additional benefit. Also cessation of all, currently. Cutback Valium 2 mg times a day from tomorrow. Patient walked 40 feet with rolling walker. December 29: Eating much better. Diet advanced to soft bland. Increase activity. Discussed with patient. If remain stable including hemoglobin the discharged tomorrow December 30: Tolerating diet. Did ambulate. Discussed length about patient's al cohol problem again. Questions answered. Follow-up with Dr. Alcocer. Start Paxil 20 mg a day for anxiety Discussion and discharge planning more than 35 minutes Past medical history to include: Spinal cord concussion secondary to fall, alcohol use disorder, chronic nicotine dependence, gastritis, esophagitis, alcoholic myopathy, normal cardiac catheterization April 2022 Social history: Lives with her ,'s drinks at least one-to pint of whiskey a day, smoking variable amounts since 1997 Family history: Mother of melanoma Physical examination: VITAL SIGNS: 98.8, 74, 18, 147/93, 96% room air GENERAL: BMI 23.6 comfortable EYES: Pupils equal. Conjunctiva normal. HEENT: External appearance of nose and ears normal, oral cavity dry mucous membranes NECK: JVD not raised; masses not palpable. HEART: First and second heart sounds are normal; no edema. LUNGS:[ Respiratory rate increased; decreased breath sounds, ABDOMEN: Soft, less distention with epigastric mildl tenderness, no guarding rigidity liver spleen not palpable, no masses palpable. PSYCH: AO 3, mood affect better MUSCULAR skeletal: Decreased muscle mass NEUROLOGICAL: Cranial nerves grossly intact; no facial asymmetry, tremors.- Greatly improved INVESTIGATIONS, reviewed in the clinical context: December 30: White count 7.3 hemoglobin 13.9 platelets 170 December 28: Potassium 4.2 creatinine 0.39 EGD [December 27] esophagitis with esophageal ulcer. Gastritis with some bleeding. Duodenitis December 27: Sodium 131 potassium 2.9 creatinine 0.42 Abdominal x-ray: Nonobstructive gas pattern December 26: White count 6.9 hemoglobin 13.1 platelets 125 sodium 131 potassium 3.3 creatinine 0.42 bicarbonate 21 White count 11.4 hemoglobin 15.1 platelets 239 sodium 137 potassium 4.4 bicarb 6 BUN 13 creatinine 0.87 blood glucose 65 Lactic acid 5.[address] abdomen pelvis: Mild thickening of the sigmoid colon. Umbilical hernia containing fat. DJD changes of the spine. Hepatic steatosis. No splenomegaly. Colonic diverticulosis. Mild thickening of the cecum and proximal ascending colon. Assessment and plan: -Acute alcohol withdrawal syndrome:, Anxious tremors: Better . CIWA scale. 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 Nutritional supplement. Stop alcohol. 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 PPI. Twice a day. Tums. GI services not available in hospital. Underwent EGD by Dr. Alcocer CT abdomen and nonspecific findings. -Hyponatremia, likely hypoosmolar from poor oral fluid intake: Better Soft diet -Moderate protein calorie malnutrition Low albumin. Decreased muscle mass. Ensure 3 times a day -COPD in a smoker: Albuterol when necessary -Severe metabolic acidosis.: Improved *Sodium bicarbonate drip discontinued -Lactic acidosis type II. From volume depletion. No sepsis. 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 Uses a walker -Anxiety Start Paxil 20 mg daily -Full code Disposition: Home Patient Condition at Discharge: Stable Plan - Discharge Summary Discharge Rx Participant: No New Discharge Prescriptions: New Metoprolol Tartrate [Lopressor] 25 mg PO BID #60 tab Magnesium Oxide [Mag-Ox] 400 mg PO BID #30 tab Multivitamins, Thera [Multivitamin (formulary)] 1 each PO DAILY #30 tab Thiamine [Vitamin B-1] 100 mg PO DAILY #30 tab Nicotine 21Mg/24Hr Patch [Habitrol] 1 patch TRANSDERM DAILY #14 patch Pantoprazole [Protonix] 40 mg PO AC-BID #60 tab Acetaminophen Tab [Tylenol] 500 mg PO Q6HR PRN tab PRN Reason: Fever And/ Or Pain Cholecalciferol [Vitamin D3 (25 Mcg = 1000 Iu)] 50 mcg PO DAILY #30 tab PARoxetine HCL [Paxil] 20 mg PO DAILY #30 tab Continue Fexofenadine/Pseudoephedrine [Katarzyna-D 24 Hour Tablet] 1 tab PO DAILY PRN PRN Reason: Allergy Symptoms Discharge Medication List Fexofenadine/Pseudoephedrine [Katarzyna-D 24 Hour Tablet] 1 tab PO DAILY PRN 12/25/22 [History] Acetaminophen Tab [Tylenol] 500 mg PO Q6HR PRN tab 12/30/22 [Rx] Cholecalciferol [Vitamin D3 (25 Mcg = 1000 Iu)] 50 mcg PO DAILY #30 tab 12/30/22 [Rx] Magnesium Oxide [Mag-Ox] 400 mg PO BID #30 tab 12/30/22 [Rx] Metoprolol Tartrate [Lopressor] 25 mg PO BID #60 tab 12/30/22 [Rx] Multivitamins, Thera [Multivitamin (formulary)] 1 each PO DAILY #30 tab 12/30/22 [Rx] Nicotine 21Mg/24Hr Patch [Habitrol] 1 patch TRANSDERM DAILY #14 patch 12/30/22 [Rx] PARoxetine HCL [Paxil] 20 mg PO DAILY #30 tab 12/30/22 [Rx] Pantoprazole [Protonix] 40 mg PO AC-BID #60 tab 12/30/22 [Rx] Thiamine [Vitamin B-1] 100 mg PO DAILY #30 tab 12/30/22 [Rx] Follow up Appointment(s)/Referral(s): Danny Ogden DO [Primary Care Provider] - 1-2 days ([facility] office will call Patient to set up an appiintment.) Patient Instructions/Handouts: Alcohol Intoxication (DC), Abuse of Alcohol (DC), At-Risk Alcohol Use (DC), Alcohol Withdrawal (DC), Lactic Acidosis (GEN) Discharge/Stand Alone Forms: AA Meetings [address] - [facility], AA Meetings [facility], Who Do I Call?, Community Resources, Outpatient Counseling, Inp Substance Abuse Facilities Discharge Disposition: HOME SELF-CARE
== END 2022-12-30 15:06 | disposition home or self-care (01) | DRG 896 ==
LOC: EC 23:13 → 3SCARD 12-25 05:26 → 4SSUR 12-25 05:50 → 3SCARD 12-25 06:24 → 5NMEDONC 12-28 14:33
PROVIDERS: ADMIT Hospitalist; ATTEND Hospitalist
PROC: 0DB68ZX Excision of Stomach, Via Natural or Artificial Opening Endoscopic, Diagnostic (ICD-10-PCS; 2022-12-27)
PROC: 0DB58ZX Excision of Esophagus, Via Natural or Artificial Opening Endoscopic, Diagnostic (ICD-10-PCS; 2022-12-27)
PROC: 0DB98ZX Excision of Duodenum, Via Natural or Artificial Opening Endoscopic, Diagnostic (ICD-10-PCS; principal; 2022-12-27 07:30)
DX: F10.239 Alcohol dependence with withdrawal, unspecified (principal); K29.01 Acute gastritis with bleeding; K29.51 Unspecified chronic gastritis with bleeding; E44.0 Moderate protein-calorie malnutrition; E87.20 Acidosis, unspecified; G72.1 Alcoholic myopathy; K22.10 Ulcer of esophagus without bleeding; E87.1 Hypo-osmolality and hyponatremia; F10.229 Alcohol dependence with intoxication, unspecified; E86.0 Dehydration; B00.9 Herpesviral infection, unspecified; F17.210 Nicotine dependence, cigarettes, uncomplicated; M25.512 Pain in left shoulder; Y90.8 Blood alcohol level of 240 mg/100 ml or more; G89.29 Other chronic pain; K21.00 Gastro-esophageal reflux disease with esophagitis, without bleeding; K29.80 Duodenitis without bleeding; F32.A Depression, unspecified; F41.9 Anxiety disorder, unspecified; I10 Essential (primary) hypertension; J44.9 Chronic obstructive pulmonary disease, unspecified; K44.9 Diaphragmatic hernia without obstruction or gangrene; Z79.899 Other long term (current) drug therapy
CPT/HCPCS: 36415; 43239; 74019; 74176; 76705; 78226; 80048; 80053; 80320; 81001; 83605; 83690; 85025; 85610; 88305; 88312; 88342; 96361; 96372; 96374; 96375; 96376; 99285

== ENCOUNTER 2023-03-26 18:50 | Emergency (ER) | payer BC, OTHER ==
[2023-03-26] MEDS ORDERED: ACETAMINOPHEN TAB 325 MG TAB PO STA (19:14)
[2023-03-26] MEDS ORDERED: SODIUM CHLORIDE 0.9% 1,000 ML IV STA (19:14)
[2023-03-26] MEDS ORDERED: IBUPROFEN 600 MG TAB PO STA (19:14)
[2023-03-26 20:17] LABS: Basophils % (A) 0 %; Eosinophils % (A) 1 %; HCT 34.3 % (34.0-46.0); HGB 11.9 gm/dL (11.4-16.0); Lymphocytes # (A) 0.6 k/uL (1.0-4.8); Lymphocytes % (A) 10 %; MCH 31.4 pg (25.0-35.0); MCHC 34.7 g/dL (31.0-37.0); MCV 90.7 fL (80.0-100.0); Mean Platelet Volume 9.7; Monocytes # (A) 0.2 k/uL (0-1.0); Monocytes % (A) 3 %; Neutrophils # (A) 5.5 k/uL (1.3-7.7); Neutrophils % (A) 85 %; Platelet Count 138 k/uL (150-450); RBC 3.78 m/uL (3.80-5.40); RDW 13.5 % (11.5-15.5); WBC 6.5 k/uL (3.8-10.6)
[2023-03-26 20:30] LABS: ALT 31 U/L (4-34); AST 39 U/L (14-36); African American GFR (CKD) >90 (>60 ml/min/1.73 sqM); Albumin 3.5 g/dL (3.5-5.0); Alkaline Phosphatase 52 U/L (38-126); Anion Gap 12 mmol/L; Blood Urea Nitrogen 10 mg/dL (7-17); Calcium 8.4 mg/dL (8.4-10.2); Carbon Dioxide 17 mmol/L (22-30); Chloride 100 mmol/L (98-107); Glucose 115 mg/dL (74-99); Non-African American GFR(CKD) >90 (>60 ml/min/1.73 sqM); Potassium 3.5 mmol/L (3.5-5.1); Sodium 129 mmol/L (137-145); Total Bilirubin 0.6 mg/dL (0.2-1.3); Total Protein 6.5 g/dL (6.3-8.2)
--- NOTE | 2023-03-26 20:34 | XR ---
EXAMINATION TYPE: XR chest 2V DATE OF EXAM: 03/26/2023 COMPARISON: 10/14/2022 HISTORY: 63 year-old female with fever TECHNIQUE: PA and lateral views FINDINGS: The cardiomediastinal silhouette, aorta, and pulmonary vasculature are within normal limits. Some str laz atelectasis in the lower lungs. Hyperinflation. No consolidation or pleural effusion. IMPRESSION: COPD. No focal infiltrates seen.
[2023-03-26 20:50] VITALS: RESP 18
[2023-03-26 23:04] LABS: Appearance,Urine Clear (Clear); Bilirubin,Urine Negative (Negative); Blood,Urine Negative (Negative); Color,Urine Yellow; Glucose,Urine (UA) Negative (Negative); Hyaline Casts,Urine 1 /lpf (0-2); Ketones,Urine 1+ (Negative); Leukocyte Esterase,Urine Small (Negative); Mucus,Urine Rare /hpf; Nitrite,Urine Negative (Negative); Protein,Urine Trace (Negative); Specific Gravity,Urine 1.013 (1.001-1.035); Squamous Epithelial Cell,Urine 1 /hpf (0-4); Urobilinogen,Urine <2.0 mg/dL (<2.0); WBC,Urine 3 /hpf (0-5)
--- NOTE | 2023-03-26 23:15 | ED ---
Fever HPI - General Chief Complaint: Fever Stated Complaint: Fever Time Seen by Provider: 03/26/23 19:07 Source: patient, EMS Mode of arrival: EMS Limitations: no limitations - History of Present Illness Initial Comments: 63-year-old female presenting with chief complaint of fever. Patient states that for the last 5 days she has had diffuse body aches and chills. She started checking her temperature today and noted temperature of 103F. States she has had a decreased appetite. No cough, congestion, sore throat, nausea, vomiting, abdominal pain, chest pain, difficulty breathing, dysuria, hematuria, flank pain, diarrhea. - Related Data Home Medications Medication Instructions Recorded Confirmed Fexofenadine/Pseudoephedrine 1 tab PO DAILY PRN 12/25/22 12/25/22 [Katarzyna-D 24 Hour Tablet] Previous Rx's Medication Instructions Recorded Acetaminophen Tab [Tylenol] 500 mg PO Q6HR PRN tab 12/30/22 Albuterol Sulfate [Albuterol 1 puff PO Q4-6H #8.5 gm 12/30/22 Sulfate Hfa] Cholecalciferol [Vitamin D3 (25 50 mcg PO DAILY #30 tab 12/30/22 Mcg = 1000 Iu)] Magnesium Oxide [Mag-Ox] 400 mg PO BID #30 tab 12/30/22 Metoprolol Tartrate [Lopressor] 25 mg PO BID #60 tab 12/30/22 Multivitamins, Thera [Multivitamin 1 each PO DAILY #30 tab 12/30/22 (formulary)] Nicotine 21Mg/24Hr Patch [Habitrol] 1 patch TRANSDERM DAILY #14 patch 12/30/22 PARoxetine HCL [Paxil] 20 mg PO DAILY #30 tab 12/30/22 Pantoprazole [Protonix] 40 mg PO AC-BID #60 tab 12/30/22 Thiamine [Vitamin B-1] 100 mg PO DAILY #30 tab 12/30/22 Allergies Allergy/AdvReac Type Severity Reaction Status Date / Time shellfish derived [Shellfish] Allergy Severe Dyspnea Verified 03/26/23 19:06 iodine Allergy Rash/Hives Verified 03/26/23 19:06 Sulfa (Sulfonamide Allergy Rash/Hives Verified 03/26/23 19:06 Antibiotics) Review of Systems ROS Statement: Those systems with pertinent positive or pertinent negative responses have been documented in the HPI. ROS Other: All systems not noted in ROS Statement are negative. 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 History of Any Multi-Drug Resistant Organisms: None Reported Past Surgical History: Back Surgery Additional Past Surgical History / Comment(s): Cervical surgery at [facility] d/t injury, colonoscopies/benign polypectomy Past Anesthesia/Blood Transfusion Reactions: No Reported Reaction, Motion Sickne ss Additional Past Anesthesia/Blood Transfusion Reaction / Comment(s): PT has clausterphobia. Past Psychological History: Anxiety Smoking Status: Current some day smoker Past Alcohol Use History: Abuse, Daily, Occasional Past Drug Use History: None Reported - Past Family History Mother Family Medical History: Cancer Additional Family Medical History / Comment(s): Mother of melanoma Father Family Medical History: No Reported History Additional Family Medical History / Comment(s): Father is healthy General Exam Limitations: no limitations General appearance: alert, in no apparent distress Head exam: Present: atraumatic, normocephalic, normal inspection Eye exam: Present: normal appearance, PERRL, EOMI. Absent: scleral icterus, conjunctival injection, periorbital swelling ENT exam: Present: normal exam, normal oropharynx, mucous membranes moist Neck exam: Present: normal inspection, full ROM Respiratory exam: Present: normal lung sounds bilaterally. Absent: respiratory distress, wheezes, rales, rhonchi, stridor Cardiovascular Exam: Present: regular rate, normal rhythm, normal heart sounds. Absent: systolic murmur, diastolic murmur, rubs, gallop, clicks GI/Abdominal exam: Present: soft. Absent: distended, tenderness, guarding, rebound, rigid Neurological exam: Present: alert, oriented X3, CN II-XII intact Psychiatric exam: Present: normal affect, normal mood Skin exam: Present: warm, dry, intact, normal color. Absent: rash Course Vital Signs 07/15/23 07/15/23 07/15/23 18:59 19:30 20:00 Temperature 101.8 F H Pulse Rate 82 Respiratory 16 18 18 Rate Blood Pressure 116/72 116/72 123/74 O2 Sat by Pulse 96 93 L 92 L Oximetry 03/26/23 03/26/23 03/26/23 20:30 20:59 21:00 Temperature 99.3 F Pulse Rate Respiratory 18 Rate Blood Pressure 116/77 117/68 O2 Sat by Pulse 95 96 Oximetry 03/26/23 03/26/23 03/26/23 21:30 22:00 22:30 Temperature Pulse Rate Respiratory Rate Blood Pressure 123/72 115/68 112/63 O2 Sat by Pulse 97 97 98 Oximetry 03/26/23 23:30 Temperature 98.0 F Pulse Rate 69 Respiratory 18 Rate Blood Pressure 118/73 O2 Sat by Pulse 97 Oximetry Medical Decision Making - Medical Decision Making Was pt. sent in by a medical professional or institution (, PA, RAIL EXPRESS CLERK, urgent care, hospital, or snf...) When possible be specific @ -No Did you speak to anyone other than the patient for history (EMS, parent, family, police, friend...)? What history was obtained from this source @ -No Did you review nursing and triage notes (agree or disagree)? Why? @ -I reviewed and agree with nursing and triage notes Were old charts reviewed (outside hosp., previous admission, EMS record, old EKG, old radiological studies, urgent care reports/EKG's, snf records)? Report findings @ -No old charts were reviewed Differential Diagnosis (chest pain, altered mental status, abdominal pain women, abdominal pain men, vaginal bleeding, weakness, fever, dyspnea, syncope, headache, dizziness, GI bleed, back pain, seizure, CVA, palpatations, mental health, musculoskeletal)? @ - MDM Differential Fever: Pneumonia, viral URI, endocarditis, myocarditis, pericarditis, otitis, sinusitis, peritonsillar Abscess, retropharyngeal Abscess, epiglottitis, peritonitis, appendicitis, Amanda cystitis, diverticulitis, hepatitis, colitis, UTI, PID, TOA, pyelonephritis, prostatitis, epididymitis, meningitis, encephalitis, pulmonary embolism, CVA, thyroid storm, pancreatitis, adrenal crisis, cavernous sinus thrombosis this is not meant to be an all-inclusive list. EKG interpreted by me (3pts min.). @ -As above X-rays interpreted by me (1pt min.). @ -Chest x-ray shows no acute process CT interpreted by me (1pt min.). @ -None done U/S interpreted by me (1pt. min.). @ -None done What testing was considered but not performed or refused? (CT, X-rays, U/S, labs)? Why? @ -None What meds were considered but not given or refused? Why? @ -None Did you discuss the management of the patient with other professionals (professionals i.e. , PA, RAIL EXPRESS CLERK, lab, RT, psych nurse, perinatal social worker, diabetes clinical manager, teacher, investment officer, piano case and bench assembler)? Give summary @ -No Was smoking cessation discussed for >3mins.? @ -No Was critical care preformed (if so, how long)? @ -No Were there social determinants of health that impacted care today? How? (Home lessness, low income, unemployed, alcoholism, drug addiction, transportation, low edu. Level, literacy, decrease access to med. care, [place] [facility], rehab)? @ -No Was there de-escalation of care discussed even if they declined (Discuss DNR or withdrawal of care, Hospice)? DNR status @ -No What co-morbidities impacted this encounter? (DM, HTN, Smoking, COPD, CAD, Cancer, CVA, ARF, Chemo, Hep., AIDS, mental health diagnosis, sleep apnea, morbid obesity)? @ -None Was patient admitted / discharged? Hospital course, mention meds given and route, prescriptions, significant lab abnormalities, going to OR and other pertinent info. @ -63-year-old female presenting with chief complaint of fever accompanied by diffuse body aches and chills. Physical examination is unremarkable. Lab work shows no leukocytosis or anemia. Sodium 129, patient is receiving IV fluids. Urine shows no evidence of UTI or hematuria. Negative heterophile. Negative for influenza, RSV, Covid, group A strep. Negative chest x-ray. Patient received Tylenol, Motrin, 1 L IV fluids. On reassessment she is resting comfortably. Educated patient on today's findings on supportive management at home. Follow-up with PCP. Report back to ER with any new or worsening symptoms. Discussed return parameters and answered all questions. Patient conveyed verbal understanding and agreed to the plan. I discussed this case in detail with my attending Dr. Sorto Undiagnosed new problem with uncertain prognosis? @ -No Drug Therapy requiring intensive monitoring for toxicity (Heparin, Nitro, Insulin, Cardizem)? @ -No Were any procedures done? @ -No Diagnosis/symptom? @ -Fever Acute, or Chronic, or Acute on Chronic? @ -Acute Uncomplicated (without systemic symptoms) or Complicated (systemic symptoms)? @ -Uncomplicated Side effects of treatment? @ -No Exacerbation, Progression, or Severe Exacerbation? @ -No Poses a threat to life or bodily function? How? (Chest pain, [place], VA, pneumonia, PE, COPD, DKA, ARF, appy, cholecystitis, CVA, Diverticulitis, Homicidal, Suicidal, threat to staff... and all critical care pts) @ -Low likelihood - Lab Data Result diagrams: 03/26/23 19:49 03/26/23 19:49 Lab Results 03/26/23 03/26/23 03/26/23 Range/Units 19:49 19:49 19:49 WBC 6.5 (3.8-10.6) k/uL RBC 3.78 L (3.80-5.40) m/uL Hgb 11.9 (11.4-16.0) gm/dL Hct 34.3 (34.0-46.0) % MCV 90.7 (80.0-100.0) fL MCH 31.4 (25.0-35.0) pg MCHC 34.7 (31.0-37.0) g/dL RDW 13.5 (11.5-15.5) % Plt Count 138 L (150-450) k/uL MPV 9.7 Neutrophils % 85 % Lymphocytes % 10 % Monocytes % 3 % Eosinophils % 1 % Basophils % 0 % Neutrophils # 5.5 (1.3-7.7) k/uL Lymphocytes # 0.6 L (1.0-4.8) k/uL Monocytes # 0.2 (0-1.0) k/uL Eosinophils # 0.0 (0-0.7) k/uL Basophils # 0.0 (0-0.2) k/uL Sodium (137-145) mmol/L Potassium (3.5-5.1) mmol/L Chloride (98-107) mmol/L Carbon Dioxide (22-30) mmol/L Anion Gap mmol/L BUN (7-17) mg/dL Creatinine (0.52-1.04) mg/dL Est GFR (CKD-EPI)AfAm (>60 ml/min/1.73 sqM) Est GFR (CKD-EPI)NonAf (>60 ml/min/1.73 sqM) Glucose (74-99) mg/dL Calcium (8.4-10.2) mg/dL Total Bilirubin (0.2-1.3) mg/dL AST (14-36) U/L ALT (4-34) U/L Alkaline Phosphatase (38-126) U/L Total Protein (6.3-8.2) g/dL Albumin (3.5-5.0) g/dL Urine Color Yellow Urine Appearance Clear (Clear) Urine pH 6.0 (5.0-8.0) Ur Specific [place] 1.013 (1.001-1.035) Urine Protein Trace H (Negative) Urine Glucose (UA) Negative (Negative) Urine Ketones 1+ H (Negative) Urine Blood Negative (Negative) Urine Nitrite Negative (Negative) Urine Bilirubin Negative (Negative) Urine Urobilinogen <2.0 (<2.0) mg/dL Ur Leukocyte Esterase Small H (Negative) Urine WBC 3 (0-5) /hpf Ur Squamous Epith Cells 1 (0-4) /hpf Hyaline Casts 1 (0-2) /lpf Urine Mucus Rare H (None) /hpf Heterophile Antibody Negative (Negative) Influenza Type A (PCR) (Not Detectd) Influenza Type B (PCR) (Not Detectd) RSV (PCR) (Not Detectd) SARS-CoV-2 (PCR) (Not Detectd) Group A Strep (PCR) (Not Detectd) 03/26/23 03/26/23 03/26/23 Range/Units 19:49 19:49 19:49 WBC (3.8-10.6) k/uL RBC (3.80-5.40) m/uL Hgb (11.4-16.0) gm/dL Hct (34.0-46.0) % MCV (80.0-100.0) fL MCH (25.0-35.0) pg MCHC (31.0-37.0) g/dL RDW (11.5-15.5) % Plt Count (150-450) k/uL MPV Neutrophils % % Lymphocytes % % Monocytes % % Eosinophils % % Basophils % % Neutrophils # (1.3-7.7) k/uL Lymphocytes # (1.0-4.8) k/uL Monocytes # (0-1.0) k/uL Eosinophils # (0-0.7) k/uL Basophils # (0-0.2) k/uL Sodium 129 L (137-145) mmol/L Potassium 3.5 (3.5-5.1) mmol/L Chloride 100 (98-107) mmol/L Carbon Dioxide 17 L (22-30) mmol/L Anion Gap 12 mmol/L BUN 10 (7-17) mg/dL Creatinine 0.41 L (0.52-1.04) mg/dL Est GFR (CKD-EPI)AfAm >90 (>60 ml/min/1.73 sqM) Est GFR (CKD-EPI)NonAf >90 (>60 ml/min/1.73 sqM) Glucose 115 H (74-99) mg/dL Calcium 8.4 (8.4-10.2) mg/dL Total Bilirubin 0.6 (0.2-1.3) mg/dL AST 39 H (14-36) U/L ALT 31 (4-34) U/L Alkaline Phosphatase 52 (38-126) U/L Total Protein 6.5 (6.3-8.2) g/dL Albumin 3.5 (3.5-5.0) g/dL Urine Color Urine Appearance (Clear) Urine pH (5.0-8.0) Ur Specific [place] (1.001-1.035) Urine Protein (Negative) Urine Glucose (UA) (Negative) Urine Ketones (Negative) Urine Blood (Negative) Urine Nitrite (Negative) Urine Bilirubin (Negative) Urine Urobilinogen (<2.0) mg/dL Ur Leukocyte Esterase (Negative) Urine WBC (0-5) /hpf Ur Squamous Epith Cells (0-4) /hpf Hyaline Casts (0-2) /lpf Urine Mucus (None) /hpf Heterophile Antibody (Negative) Influenza Type A (PCR) Not Detected (Not Detectd) Influenza Type B (PCR) Not Detected (Not Detectd) RSV (PCR) Not Detected (Not Detectd) SARS-CoV-2 (PCR) Not Detected (Not Detectd) Group A Strep (PCR) NOT DETECTED (Not Detectd) Disposition Clinical Impression: Fever Disposition: HOME SELF-CARE Condition: Good Instructions (If sedation given, give patient instructions): Fever in Adults (ED) Additional Instructions: Follow-up with PCP. Report back to ER with any new or worsening symptoms. Alternate Motrin and Tylenol as needed for fever and pain control. Is patient prescribed a controlled substance at d/c from ED?: No Referrals: Aileen Torres MD [Primary Care Provider] - 1-2 days Time of Disposition: 23:15
[2023-03-26 23:33] VITALS: BP 118/73; PULSE 69; TEMP 98
== END 2023-03-26 23:41 | disposition home or self-care (01) ==
LOC: EC 18:50
DX: R50.9 Fever, unspecified (principal); I10 Essential (primary) hypertension; J44.9 Chronic obstructive pulmonary disease, unspecified; F17.200 Nicotine dependence, unspecified, uncomplicated; Z86.59 Personal history of other mental and behavioral disorders; Z20.822 Contact with and (suspected) exposure to COVID-19; Z88.1 Allergy status to other antibiotic agents; Z88.2 Allergy status to sulfonamides; Z91.013 Allergy to seafood; Z88.8 Allergy status to other drugs, medicaments and biological substances
CPT/HCPCS: 36415; 71046; 80053; 81001; 85025; 86308; 87636; 87651; 99284

== ENCOUNTER 2023-05-01 00:54 | Emergency (ER) | payer BC, OTHER ==
[2023-05-01] MEDS ORDERED: methylPREDNISolone SOD SUCCI 125 MG/2 ML VIAL IV STA (01:43)
[2023-05-01] MEDS ORDERED: diphenhydrAMINE 50 MG/ML 1 ML VIAL IVP STA (01:43)
[2023-05-01] MEDS ORDERED: SODIUM CHLORIDE 0.9% 1,000 ML IV ONE (01:43)
--- NOTE | 2023-05-01 02:17 | ED ---
General Adult HPI - General Chief complaint: Abdominal Pain Stated complaint: Abd Pain Time Seen by Provider: 05/01/23 00:56 Source: EMS Mode of arrival: EMS Limitations: no limitations - History of Present Illness Initial comments: This is a 63-year-old female who presents emergency department via EMS for abdominal pain. The patient reported that she had lower abdominal pain that started today and was worsening for last 6 hours. The patient did smell of alcohol and did report that she did drink today. The patient was otherwise able to answer all questions appropriately and did state that she had minor nausea without any vomiting. The patient denied any other acute pain or complaints at this time and stated that the abdominal pain was on the right lower side of her abdomen but then was pointing to the left lower side. - Related Data Home Medications Medication Instructions Recorded Confirmed Fexofenadine/Pseudoephedrine 1 tab PO DAILY PRN 12/25/22 12/25/22 [Katarzyna-D 24 Hour Tablet] Previous Rx's Medication Instructions Recorded Acetaminophen Tab [Tylenol] 500 mg PO Q6HR PRN tab 12/30/22 Albuterol Sulfate [Albuterol 1 puff PO Q4-6H #8.5 gm 12/30/22 Sulfate Hfa] Cholecalciferol [Vitamin D3 (25 50 mcg PO DAILY #30 tab 12/30/22 Mcg = 1000 Iu)] Magnesium Oxide [Mag-Ox] 400 mg PO BID #30 tab 12/30/22 Metoprolol Tartrate [Lopressor] 25 mg PO BID #60 tab 12/30/22 Multivitamins, Thera [Multivitamin 1 each PO DAILY #30 tab 12/30/22 (formulary)] Nicotine 21Mg/24Hr Patch [Habitrol] 1 patch TRANSDERM DAILY #14 patch 12/30/22 PARoxetine HCL [Paxil] 20 mg PO DAILY #30 tab 12/30/22 Pantoprazole [Protonix] 40 mg PO AC-BID #60 tab 12/30/22 Thiamine [Vitamin B-1] 100 mg PO DAILY #30 tab 12/30/22 Famotidine [Pepcid] 20 mg PO HS #30 tablet 05/01/23 Mag Hydrox/Al Hydrox/Simeth 30 ml PO BID #300 ml 05/01/23 [Maalox] Allergies Allergy/AdvReac Type Severity Reaction Status Date / Time shellfish derived [Shellfish] Allergy Severe Dyspnea Verified 03/26/23 19:06 iodine Allergy Rash/Hives Verified 03/26/23 19:06 Sulfa (Sulfonamide Allergy Rash/Hives Verified 03/26/23 19:06 Antibiotics) Review of Systems ROS Statement: Those systems with pertinent positive or pertinent negative responses have been documented in the HPI. ROS Other: All systems not noted in ROS Statement are negative. 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 History of Any Multi-Drug Resistant Organisms: None Reported Past Surgical History: Back Surgery Additional Past Surgical History / Comment(s): Cervical surgery at [facility] d/t injury, colonoscopies/benign polypectomy Past Anesthesia/Blood Transfusion Reactions: No Reported Reaction, Motion Sickness Additional Past Anesthesia/Blood Transfusion Reaction / Comment(s): PT has clausterphobia. Past Psychological History: Anxiety Smoking Status: Current some day smoker Past Alcohol Use History: Abuse, Daily, Occasional Past Drug Use History: None Reported - Past Family History Mother Family Medical History: Cancer Additional Family Medical History / Comment(s): Mother of melanoma Father Family Medical History: No Reported History Additional Family Medical History / Comment(s): Father is healthy General Exam Limitations: no limitations General appearance: alert, in no apparent distress Head exam: Present: atraumatic, normocephalic, normal inspection Eye exam: Present: normal appearance, PERRL Pupils: Present: normal accommodation ENT exam: Present: normal exam, normal oropharynx, mucous membranes moist Neck exam: Present: normal inspection, full ROM Respiratory exam: Present: normal lung sounds bilaterally Cardiovascular Exam: Present: regular rate, normal rhythm, normal heart sounds GI/Abdominal exam: Present: soft, tenderness (TTP over the umbilical region), normal bowel sounds Extremities exam: Present: normal inspection, full ROM Back exam: Present: normal inspection, full ROM Neurological exam: Present: alert, oriented X3, CN II-XII intact Psychiatric exam: Present: normal affect, normal mood Skin exam: Present: warm, dry Course Vital Signs 05/01/23 05/01/23 00:56 05:44 Pulse Rate 70 99 Respiratory 18 20 Rate Blood Pressure 141/99 148/93 O2 Sat by Pulse 99 94 L Oximetry Medical Decision Making - Medical Decision Making Was pt. sent in by a medical professional or institution (, EDITH, TRADING ASSISTANT, urgent care, hospital, or skilled nursing...) When possible be specific @ -No Did you speak to anyone other than the patient for history (EMS, parent, family, police, friend...)? What history was obtained from this source @ -No Did you review nursing and triage notes (agree or disagree)? Why? @ -I reviewed and agree with nursing and triage notes Were old charts reviewed (outside hosp., previous admission, EMS record, old EKG, old radiological studies, urgent care reports/EKG's, skilled nursing records)? Report findings @ -No old charts were reviewed Differential Diagnosis (chest pain, altered mental status, abdominal pain women, abdominal pain men, vaginal bleeding, weakness, fever, dyspnea, syncope, headache, dizziness, GI bleed, back pain, seizure, CVA, palpatations, mental health)? @ -Gastroenteritis, diverticulitis, appendicitis EKG interpreted by me (3pts min.). @ -As above X-rays interpreted by me (1pt min.). @ -None done CT interpreted by me (1pt min.). @ -CT abdomen and pelvis with IV contrast was obtained and was interpreted by myself showing no acute findings in the abdomen and pelvis. U/S interpreted by me (1pt. min.). @ -None done What testing was considered but not performed or refused? (CT, X-rays, U/S, labs)? Why? @ -None What meds were considered but not given or refused? Why? @ -None Did you discuss the management of the patient with other professionals (professionals i.e. EDITH Bolton, TRADING ASSISTANT, lab, RT, psych nurse, protective services social worker, sizing sprayer, teacher, aoc plans intelligence officer, telephonic case manager)? Give summary @ -No Was smoking cessation discussed for >3mins.? @ -No Was critical care preformed (if so, how long)? @ -No Were there social determinants of health that impacted care today? How? (Homelessness, low income, unemployed, alcoholism, drug addiction, transportation, low edu. Level, literacy, decrease access to med. care, half-way, rehab)? @ -No Was there de-escalation of care discussed even if they declined (Discuss DNR or withdrawal of care, Hospice)? DNR status @ -No What co-morbidities impacted this encounter? (DM, HTN, Smoking, COPD, CAD, C ancer, CVA, ARF, Chemo, Hep., AIDS, mental health diagnosis, sleep apnea, morbid obesity)? @ -Chronic alcoholism Was patient admitted / discharged? Hospital course, mention meds given and route, prescriptions, significant lab abnormalities, going to OR and other pertinent info. @ -The patient was seen and evaluated in emergency department. Physical exam, the patient was resting in bed without any acute distress. Vital signs admission were stable. Due to the nature the patient's complaints, laboratory workup was obtained and imaging was also obtained at this time. The patient was significant for an alcohol of 277. The patient denied of any signs of withdrawal and was resting and intermittently sleeping in bed without any acute distress. Computed tomography scan was negative. The patient was given a dose of Bentyl without any relief and she continued to request narcotic pain medications. When I told her that there was no abnormality needed for narcotic medication, the patient asked "will Ativan help?" The patient was told that needed Ativan nor narcotics will help with this and she was given a GI cocktail and Pepcid. On reevaluation, the patient did have improvement of her pain and was stable for discharge. The patient's was contacted and the patient will be discharged home with her . The patient had all of her questions answered appropriately and was told to report to the primary care physician for further workup and evaluation and the emergency department should worsening pain or distress. The patient was discharged with her in stable condition. Undiagnosed new problem with uncertain prognosis? @ -No Drug Therapy requiring intensive monitoring for toxicity (Heparin, Nitro, Insulin, Cardizem)? @ -No Were any procedures done? @ -No Diagnosis/symptom? @ -Abdominal pain, NOS, EtOH intoxication Acute, or Chronic, or Acute on Chronic? @ -Acute Uncomplicated (without systemic symptoms) or Complicated (systemic symptoms)? @ -Uncomplicated Side effects of treatment? @ -No Exacerbation, Progression, or Severe Exacerbation? @ -No Poses a threat to life or bodily function? How? (Chest pain, USA, PR, pneumonia, PE, COPD, DKA, ARF, appy, cholecystitis, CVA, Diverticulitis, Homicidal, Suicidal, threat to staff... and all critical care pts) @ -No - Lab Data Result diagrams: 05/01/23 01:54 05/01/23 01:54 Lab Results 05/01/23 05/01/23 Range/Units 01:54 01:54 WBC 9.5 (3.8-10.6) k/uL RBC 5.16 (3.80-5.40) m/uL Hgb 15.7 D (11.4-16.0) gm/dL Hct 46.5 H (34.0-46.0) % MCV 90.2 (80.0-100.0) fL MCH 30.4 (25.0-35.0) pg MCHC 33.7 (31.0-37.0) g/dL RDW 14.8 (11.5-15.5) % Plt Count 215 (150-450) k/uL MPV 7.6 Neutrophils % 70 % Lymphocytes % 23 % Monocytes % 4 % Eosinophils % 2 % Basophils % 0 % Neutrophils # 6.6 (1.3-7.7) k/uL Lymphocytes # 2.2 (1.0-4.8) k/uL Monocytes # 0.3 (0-1.0) k/uL Eosinophils # 0.2 (0-0.7) k/uL Basophils # 0.0 (0-0.2) k/uL Sodium 141 (137-145) mmol/L Potassium 4.1 (3.5-5.1) mmol/L Chloride 104 (98-107) mmol/L Carbon Dioxide 18 L (22-30) mmol/L Anion Gap 19 mmol/L BUN 9 (7-17) mg/dL Creatinine 0.51 L (0.52-1.04) mg/dL Est GFR (CKD-EPI)AfAm >90 (>60 ml/min/1.73 sqM) Est GFR (CKD-EPI)NonAf >90 (>60 ml/min/1.73 sqM) Glucose 97 (74-99) mg/dL Calcium 9.1 (8.4-10.2) mg/dL Magnesium 1.8 (1.6-2.3) mg/dL Total Bilirubin 0.7 (0.2-1.3) mg/dL AST 33 (14-36) U/L ALT 20 (4-34) U/L Alkaline Phosphatase 77 (38-126) U/L Total Protein 8.4 H (6.3-8.2) g/dL Albumin 4.9 (3.5-5.0) g/dL Lipase 255 (23-300) U/L Serum Alcohol 277 H* mg/dL Disposition Clinical Impression: Abdominal pain, ETOH abuse Disposition: HOME SELF-CARE Condition: Stable Instructions (If sedation given, give patient instructions): Alcohol Intoxication (DC), Abdominal Pain (ED) Prescriptions: Mag Hydrox/Al Hydrox/Simeth [Maalox] 30 ml PO BID #300 ml Famotidine [Pepcid] 20 mg PO HS #30 tablet Is patient prescribed a controlled substance at d/c from ED?: No Referrals: Aileen Torres MD [Primary Care Provider] - 1-2 days Time of Disposition: 06:00
[2023-05-01 03:08] LABS: Basophils % (A) 0 %; Eosinophils # (A) 0.2 k/uL (0-0.7); Eosinophils % (A) 2 %; HCT 46.5 % (34.0-46.0); Lymphocytes # (A) 2.2 k/uL (1.0-4.8); Lymphocytes % (A) 23 %; MCH 30.4 pg (25.0-35.0); MCHC 33.7 g/dL (31.0-37.0); MCV 90.2 fL (80.0-100.0); Mean Platelet Volume 7.6; Monocytes # (A) 0.3 k/uL (0-1.0); Monocytes % (A) 4 %; Neutrophils # (A) 6.6 k/uL (1.3-7.7); Neutrophils % (A) 70 %; Platelet Count 215 k/uL (150-450); RBC 5.16 m/uL (3.80-5.40); RDW 14.8 % (11.5-15.5); WBC 9.5 k/uL (3.8-10.6)
[2023-05-01 03:09] LABS: ALT 20 U/L (4-34); AST 33 U/L (14-36); African American GFR (CKD) >90 (>60 ml/min/1.73 sqM); Albumin 4.9 g/dL (3.5-5.0); Alkaline Phosphatase 77 U/L (38-126); Anion Gap 19 mmol/L; Blood Urea Nitrogen 9 mg/dL (7-17); Calcium 9.1 mg/dL (8.4-10.2); Carbon Dioxide 18 mmol/L (22-30); Chloride 104 mmol/L (98-107); Glucose 97 mg/dL (74-99); Lipase 255 U/L (23-300); Magnesium 1.8 mg/dL (1.6-2.3); Non-African American GFR(CKD) >90 (>60 ml/min/1.73 sqM); Potassium 4.1 mmol/L (3.5-5.1); Sodium 141 mmol/L (137-145); Total Bilirubin 0.7 mg/dL (0.2-1.3); Total Protein 8.4 g/dL (6.3-8.2)
[2023-05-01 03:14] LABS: Alcohol 277 mg/dL
[2023-05-01 03:29] LABS: HGB 15.7 gm/dL (11.4-16.0)
--- NOTE | 2023-05-01 04:21 | CT ---
EXAM: CT Abdomen and Pelvis With Intravenous Contrast CLINICAL HISTORY: ITS.REASON CT Reason: Acute abdominal pain TECHNIQUE: Axial computed tomography images of the abdomen and pelvis with intravenous contrast. CTDI is 21.6 mGy and DLP is 1029.5 mGy-cm. This CT exam was performed using one or more of the following dose reduction techniques: automated exposure control, adjustment of the mA and/or kV according to patient size, and/or use of iterative reconstruction technique. COMPARISON: No relevant prior studies available. FINDINGS: Lung bases: Unremarkable. No mass. No consolidation. ABDOMEN: Liver: 5 mm hepatic hypodensities (series 201 image 15, 21), statistically benign. Gallbladder and bile ducts: Unremarkable. No calcified stones. No ductal dilation. Pancreas: Unremarkable. No mass. No ductal dilation. Spleen: Unremarkable. No splenomegaly. Adrenals: Unremarkable. No mass. Kidneys and ureters: Unremarkable. No solid mass. No hydronephrosis. Stomach and bowel: Probable tiny incidental gastric fundal diverticulum (series 201 image 17, series 2-3 image 82). Residual contrast seen within the colon. Moderate amount of stool in the cecum. Colonic diverticulosis, without acute diverticulitis. No obstruction. PELVIS: Appendix: Appendix not visualized discretely, however no changes of acute appendicitis apparent. Bladder: Moderate bladder distention with air in the bladder lumen, likely related to recent instrumentation. Reproductive: Unremarkable as visualized. ABDOMEN and PELVIS: Intraperitoneal space: Unremarkable. No free air. No significant fluid collection. Bones/joints: No acute fracture. No dislocation. Soft tissues: Unremarkable. Vasculature: Unremarkable. No abdominal aortic aneurysm. Lymph nodes: Unremarkable. No enlarged lymph nodes. IMPRESSION: No acute findings in the abdomen or pelvis.
[2023-05-01] MEDS ORDERED: DICYCLOMINE 10 MG/ML 2 ML AMP IM STA (04:26)
[2023-05-01] MEDS ORDERED: FAMOTIDINE 20 MG/2 ML VIAL IV STA (05:11)
[2023-05-01] MEDS ORDERED: MAG HYDROX/AL HYDROX/SIMETH 30 ML, HYOSCYAMINE ELIXIR 10 ML, LIDOCAINE 2% GLYDO JELLY 1... PO STA ×3 (05:11)
[2023-05-01 05:46] VITALS: PULSE 99
[2023-05-01 11:18] VITALS: BP 175/108; RESP 18
== END 2023-05-01 11:18 | disposition home or self-care (01) ==
LOC: EC 00:54
DX: R10.9 Unspecified abdominal pain (principal); F10.929 Alcohol use, unspecified with intoxication, unspecified; I10 Essential (primary) hypertension; F17.200 Nicotine dependence, unspecified, uncomplicated; Z86.59 Personal history of other mental and behavioral disorders; Z88.2 Allergy status to sulfonamides; Z91.013 Allergy to seafood; Z88.8 Allergy status to other drugs, medicaments and biological substances; Y90.8 Blood alcohol level of 240 mg/100 ml or more
CPT/HCPCS: 36415; 80053; 83690; 83735; 85025; 80320; 74177; 99285; 96374; 96375 ×2; 96361; 96372; J1200; J0500; J2930; Q9967

== ENCOUNTER 2023-08-02 14:43 | Emergency (ER) | payer BC, OTHER ==
[2023-08-02] MEDS ORDERED: SODIUM CHLORIDE 0.9% 1,000 ML IV STA (15:30)
[2023-08-02] MEDS ORDERED: MORPHINE SULFATE 4 MG/ML SYRINGE IVP STA (15:44)
[2023-08-02 16:08] VITALS: RESP 16
--- NOTE | 2023-08-02 16:27 | XR ---
EXAMINATION TYPE: XR chest 1V DATE OF EXAM: 08/02/2023 4:13 PM CLINICAL INDICATION:Female, 63 years old with history of fall; [facility] COMPARISON: Chest radiographs from 03/26/2023. TECHNIQUE: XR chest 1V Frontal view of the chest. FINDINGS: Lungs/Pleura: Prominent interstitial lung markings are seen scattered throughout the lungs with salma ening of the diaphragm and increased lucency of the lung apices. No evidence of focal consolidation, pneumothorax or pleural effusion. Pulmonary vascularity: Unremarkable. Heart/mediastinum: Cardiomediastinal silhouette is unremarkable. Musculoskeletal: No acute osseous pathology. IMPRESSION: 1. No acute cardiopulmonary disease process. 2. COPD changes.
--- NOTE | 2023-08-02 16:28 | XR ---
EXAMINATION TYPE: XR pelvis AP view DATE OF EXAM: 08/02/2023 4:13 PM CLINICAL INDICATION:Female, 63 years old with history of fall; COMPARISON: None TECHNIQUE: The pelvis was examined in a single projection. FINDINGS: There is no evidence of fracture or dislocation. There is no soft tissue abnormality. No a bnormal calcifications are present. Multilevel degenerative changes of the lower spine. Degeneration changes with joint space narrowing and osteophyte formation of the hips. IMPRESSION: 1. No acute osseous pathology. 2. Mild bilateral hip osteoarthrosis.
--- NOTE | 2023-08-02 16:34 | CT ---
EXAMINATION TYPE: CT brain cspine wo con CT DLP: 1424 mGycm, Automated exposure control for dose reduction was used. DATE OF EXAM: 08/02/2023 4:27 PM COMPARISON: None. CLINICAL INDICATION:Female, 63 years old with history of fall; Fall TECHNIQUE: Brain: Multiple axial CT images of the brain were obtained without IV contrast. Cspine: Axial CT images from the skull base to the inferior aspect of T2 we obtained without intraven ous contrast. Coronal and sagittal reformatted images were also reviewed. FINDINGS: Brain: Extra-axial spaces: No abnormal extra-axial fluid collections. Ventricular system: Within normal limits Cerebral parenchyma: No acute intraparenchymal hemorrhage or mass effect. The mora-white junction is well differentiated. Cerebellum: Unremarkable. Mass effect: No evidence of midline shift. Intracranial vasculature: unremarkable Soft tissues: Normal. Calvarium/osseous structures: No depressed skull fracture. Paranasal sinuses and mastoid air cells: Clear. Visualized orbits: Orbital contents are intact. Cervical spine: Fracture: None. Osseous structures: Fixation hardware at C3-C4 appears intact. Multilevel degenerative disc disease c hanges with endplate spurring and disc osteophyte complex's. Vertebral alignment: Within normal limits. Spinal canal/Neural Foramina: No evidence of significant spinal canal narrowing. No evidence for sign ificant neural foraminal stenosis. Neck soft tissues: Prevertebral soft tissues are within normal limits. Other: The airway is patent. The lung apices are clear. IMPRESSION: 1. No acute intracranial process. 2. No evidence of cervical spine fracture. 3. Mild multilevel degenerative disc disease.
[2023-08-02 17:04] LABS: Basophils % (A) 0 %; Eosinophils # (A) 0.1 k/uL (0-0.7); Eosinophils % (A) 1 %; HCT 44.8 % (34.0-46.0); HGB 15.5 gm/dL (11.4-16.0); Lymphocytes # (A) 2.1 k/uL (1.0-4.8); Lymphocytes % (A) 22 %; MCHC 34.6 g/dL (31.0-37.0); MCV 98.1 fL (80.0-100.0); Mean Platelet Volume 8.2; Monocytes # (A) 0.3 k/uL (0-1.0); Monocytes % (A) 4 %; Neutrophils # (A) 6.9 k/uL (1.3-7.7); Neutrophils % (A) 72 %; Platelet Count 106 k/uL (150-450); RBC 4.57 m/uL (3.80-5.40); RDW 13.3 % (11.5-15.5); WBC 9.6 k/uL (3.8-10.6)
--- NOTE | 2023-08-02 17:04 | ED ---
Fall HPI - General Chief Complaint: Fall Stated Complaint: Fall Source: patient, EMS, RN notes reviewed, old records reviewed Mode of arrival: EMS Limitations: no limitations - History of Present Illness Initial Comments: This is a 63 female to the ER for alcohol intoxication and alcohol related fall. 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 HOSPITAL[facility] HOST Fall Witnessed: no Place Fall Occurred: home Loss of Consciousness: none Prolonged Down Time?: no Symptoms Prior to Fall: none Severity: moderate Severity scale (1-10): 4 Context: tripped/slipped Associated Symptoms: denies - Related Data Home Medications Medication Instructions Recorded Confirmed Fexofenadine/Pseudoephedrine 1 tab PO DAILY PRN 12/25/22 12/25/22 [Katarzyna-D 24 Hour Tablet] Previous Rx's Medication Instructions Recorded Acetaminophen Tab [Tylenol] 500 mg PO Q6HR PRN tab 12/30/22 Albuterol Sulfate [Albuterol 1 puff PO Q4-6H #8.5 gm 12/30/22 Sulfate Hfa] Cholecalciferol [Vitamin D3 (25 50 mcg PO DAILY #30 tab 12/30/22 Mcg = 1000 Iu)] Magnesium Oxide [Mag-Ox] 400 mg PO BID #30 tab 12/30/22 Metoprolol Tartrate [Lopressor] 25 mg PO BID #60 tab 12/30/22 Multivitamins, Thera [Multivitamin 1 each PO DAILY #30 tab 12/30/22 (formulary)] Nicotine 21Mg/24Hr Patch [Habitrol] 1 patch TRANSDERM DAILY #14 patch 12/30/22 PARoxetine HCL [Paxil] 20 mg PO DAILY #30 tab 12/30/22 Pantoprazole [Protonix] 40 mg PO AC-BID #60 tab 12/30/22 Thiamine [Vitamin B-1] 100 mg PO DAILY #30 tab 12/30/22 Famotidine [Pepcid] 20 mg PO HS #30 tablet 05/01/23 Mag Hydrox/Al Hydrox/Simeth 30 ml PO BID #300 ml 05/01/23 [Maalox] Allergies Allergy/AdvReac Type Severity Reaction Status Date / Time shellfish derived [Shellfish] Allergy Severe Dyspnea Verified 03/26/23 19:06 iodine Allergy Rash/Hives Verified 03/26/23 19:06 Sulfa (Sulfonamide Allergy Rash/Hives Verified 03/26/23 19:06 Antibiotics) Review of Systems ROS Statement: Those systems with pertinent positive or pertinent negative responses have been documented in the HPI. ROS Other: All systems not noted in ROS Statement are negative. 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 History of Any Multi-Drug Resistant Organisms: None Reported Past Surgical History: Back Surgery Additional Past Surgical History / Comment(s): Cervical surgery at [facility] d/t injury, colonoscopies/benign polypectomy Past Anesthesia/Blood Transfusion Reactions: No Reported Reaction, Motion Sickness Additional Past Anesthesia/Blood Transfusion Reaction / Comment(s): PT has clausterphobia. Past Psychological History: Anxiety Smoking Status: Current some day smoker Past Alcohol Use History: Abuse, Daily, Occasional Past Drug Use History: None Reported - Past Family History Mother Family Medical History: Cancer Additional Family Medical History / Comment(s): Mother of melanoma Father Family Medical History: No Reported History Additional Family Medical History / Comment(s): Father is healthy General Exam Limitations: no limitations General appearance: alert, in no apparent distress Head exam: Present: atraumatic, normocephalic, normal inspection Eye exam: Present: normal appearance, PERRL, EOMI. Absent: scleral icterus, conjunctival injection, periorbital swelling ENT exam: Present: normal exam, mucous membranes moist Neck exam: Present: normal inspection. Absent: tenderness, meningismus, lymphadenopathy Respiratory exam: Present: normal lung sounds bilaterally. Absent: respiratory distress, wheezes, rales, rhonchi, stridor Cardiovascular Exam: Present: regular rate, normal rhythm, normal heart sounds. Absent: systolic murmur, diastolic murmur, rubs, gallop, clicks GI/Abdominal exam: Present: soft, normal bowel sounds. Absent: distended, tenderness, guarding, rebound, rigid Extremities exam: Present: normal inspection, full ROM, normal capillary refill. Absent: tenderness, pedal edema, joint swelling, calf tenderness Back exam: Present: normal inspection Neurological exam: Present: alert, oriented X3, CN II-XII intact Psychiatric exam: Present: normal affect, normal mood Skin exam: Present: warm, dry, intact, normal color. Absent: rash Course Vital Signs 08/02/23 08/02/23 08/02/23 15:30 15:38 16:00 Temperature 98.7 F Pulse Rate 90 88 91 Respiratory 16 16 16 Rate Blood Pressure 113/77 113/77 121/72 O2 Sat by Pulse 95 96 95 Oximetry 08/02/23 08/02/23 08/02/23 16:30 17:00 17:30 Temperature Pulse Rate 83 76 77 Respiratory 16 16 16 Rate Blood Pressure 115/75 125/78 123/69 O2 Sat by Pulse 96 95 98 Oximetry 08/02/23 08/02/23 08/02/23 18:00 18:30 19:38 Temperature 97.8 F Pulse Rate 77 75 80 Respiratory 16 16 16 Rate Blood Pressure 121/69 120/66 134/89 O2 Sat by Pulse 95 95 99 Oximetry - Reevaluation(s) Reevaluation #1: 08/02/23 medical record is reviewed Reevaluation #2: 08/02/23 patients symptoms are unchanged Reevaluation #3: 08/02/23 patient is informed of records and questions answered Reevaluation #4: Was pt. sent in by a medical professional or institution (, PA, LE[employer] P[employer]ER, urgent care, hospital, or assisted...) When possible be specific @ -no Did you speak to anyone other than the patient for history (EMS, parent, family, police, friend...)? What history was obtained from this source @ -no Did you review nursing and triage notes (agree or disagree)? Why? @ -agree Are old charts reviewed (outside hosp., previous admission, EMS record, old EKG, old radiological studies, urgent care reports/EKG's, assisted records)? Report findings @ -yes Differential Diagnosis (chest pain, altered mental status, abdominal pain women, abdominal pain men, vaginal bleeding, weakness, fever, dyspnea, syncope, headache, dizziness, GI bleed, back pain, seizure, CVA, palpatations, mental health, musculoskeletal)? @ -prior EKG interpreted by me (3pts min.). @ -no X-rays interpreted by me (1pt min.). @ -yes CT interpreted by me (1pt min.). @ -yes U/S interpreted by me (1pt. min.). @ -no What testing was considered but not performed or refused? (CT, X-rays, U/S, labs)? Why? @ -none What meds were considered but not given or refused? Why? @ -none Did you discuss the management of the patient with other professionals (professionals i.e. Dr., PA, LE[employer] P[employer]ER, lab, RT, psych nurse, child protective services social worker, roller billet mill, teacher, infantry weapons officer, comp field case manager)? Give summary @ -no Was smoking cessation discussed for >3mins.? @ -no Was critical care preformed (if so, how long)? @ -no Were there social determinants of health that impacted care today? How? (Ho melessness, low income, unemployed, alcoholism, drug addiction, transportation, low edu. Level, literacy, decrease access to med. care, shelter, rehab)? @ -none Was there de-escalation of care discussed even if they declined (Discuss DNR or withdrawal of care, Hospice)? DNR status @ -no What co-morbidities impacted this encounter? (DM, HTN, Smoking, COPD, CAD, Cancer, CVA, ARF, Chemo, Hep., AIDS, mental health diagnosis, sleep apnea, morbid obesity)? @ -none Was patient admitted / discharged? Hospital course, mention meds given and route, prescriptions, significant lab abnormalities, going to OR and other pertinent info. @ - 63 female to ED with alcohol intoxication and ETOH realated trip and fall, normal labs and negative imaging. discharged Undiagnosed new problem with uncertain prognosis? @ -no Drug Therapy requiring intensive monitoring for toxicity (Heparin, Nitro, Insulin, Cardizem)? @ -no Were any procedures done? @ -no Diagnosis/symptom? @ -ETOHintoxiaciton, fall Acute, or Chronic, or Acute on Chronic? @ -Acute Uncomplicated (without systemic symptoms) or Complicated (systemic symptoms)? @ -Complicated Side effects of treatment? @ -no Exacerbation, Progression, or Severe Exacerbation? @ -exacerbation Poses a threat to life or bodily function? How? (Chest pain, [place], [place], pneumonia, PE, COPD, DKA, ARF, appy, cholecystitis, CVA, Diverticulitis, Homicidal, Suicidal, threat to staff... and all critical care pts) @ -yes Medical Decision Making - Medical Decision Making 63 female to ED with alcohol intoxication and ETOH realated trip and fall, normal labs and negative imaging. - Lab Data Result diagrams: 08/02/23 16:06 08/02/23 16:06 Lab Results 08/02/23 08/02/23 Range/Units 16:06 16:06 WBC 9.6 (3.8-10.6) k/uL RBC 4.57 (3.80-5.40) m/uL Hgb 15.5 (11.4-16.0) gm/dL Hct 44.8 (34.0-46.0) % MCV 98.1 (80.0-100.0) fL MCH 34.0 (25.0-35.0) pg MCHC 34.6 (31.0-37.0) g/dL RDW 13.3 (11.5-15.5) % Plt Count 106 L (150-450) k/uL MPV 8.2 Neutrophils % 72 % Lymphocytes % 22 % Monocytes % 4 % Eosinophils % 1 % Basophils % 0 % Neutrophils # 6.9 (1.3-7.7) k/uL Lymphocytes # 2.1 (1.0-4.8) k/uL Monocytes # 0.3 (0-1.0) k/uL Eosinophils # 0.1 (0-0.7) k/uL Basophils # 0.0 (0-0.2) k/uL Sodium 136 L (137-145) mmol/L Potassium 3.5 (3.5-5.1) mmol/L Chloride 97 L (98-107) mmol/L Carbon Dioxide 18 L (22-30) mmol/L Anion Gap 21 mmol/L BUN 9 (7-17) mg/dL Creatinine 0.35 L (0.52-1.04) mg/dL Est GFR (CKD-EPI)AfAm >90 (>60 ml/min/1.73 sqM) Est GFR (CKD-EPI)NonAf >90 (>60 ml/min/1.73 sqM) Glucose 85 (74-99) mg/dL Calcium 8.5 (8.4-10.2) mg/dL Phosphorus 4.4 (2.5-4.5) mg/dL Magnesium 1.7 (1.6-2.3) mg/dL Total Bilirubin 1.0 (0.2-1.3) mg/dL AST 120 H (14-36) U/L ALT 71 H (4-34) U/L Alkaline Phosphatase 57 (38-126) U/L Total Protein 7.6 (6.3-8.2) g/dL Albumin 4.6 (3.5-5.0) g/dL Lipase 42 (23-300) U/L Serum Alcohol 290 H* mg/dL - Radiology Data Radiology results: report reviewed (CT brain cspine cxr pelvis xr negaitve for acute disaese), image reviewed Disposition Clinical Impression: Alcohol intoxication, Fall, Weakness Disposition: HOME SELF-CARE Condition: Fair Instructions (If sedation given, give patient instructions): Fall Prevention f or Older Adults (ED) Is patient prescribed a controlled substance at d/c from ED?: No Referrals: Aileen Torres MD [Primary Care Provider] - 1-2 days Time of Disposition: 17:50
[2023-08-02 17:17] LABS: ALT 71 U/L (4-34); African American GFR (CKD) >90 (>60 ml/min/1.73 sqM); Albumin 4.6 g/dL (3.5-5.0); Anion Gap 21 mmol/L; Blood Urea Nitrogen 9 mg/dL (7-17); Calcium 8.5 mg/dL (8.4-10.2); Carbon Dioxide 18 mmol/L (22-30); Chloride 97 mmol/L (98-107); Glucose 85 mg/dL (74-99); Lipase 42 U/L (23-300); Non-African American GFR(CKD) >90 (>60 ml/min/1.73 sqM); Sodium 136 mmol/L (137-145); Total Protein 7.6 g/dL (6.3-8.2)
[2023-08-02 17:29] LABS: AST 120 U/L (14-36); Alcohol 290 mg/dL; Alkaline Phosphatase 57 U/L (38-126); Magnesium 1.7 mg/dL (1.6-2.3); Phosphorus 4.4 mg/dL (2.5-4.5); Potassium 3.5 mmol/L (3.5-5.1)
[2023-08-02 20:00] VITALS: BP 134/89; PULSE 80; TEMP 97.8
== END 2023-08-02 19:41 | disposition home or self-care (01) ==
LOC: EC 14:43
DX: F10.129 Alcohol abuse with intoxication, unspecified (principal); R53.1 Weakness; I10 Essential (primary) hypertension; J44.9 Chronic obstructive pulmonary disease, unspecified; F17.200 Nicotine dependence, unspecified, uncomplicated; Z88.2 Allergy status to sulfonamides; Z91.013 Allergy to seafood; Z91.041 Radiographic dye allergy status; Z86.59 Personal history of other mental and behavioral disorders; W01.0XXA Fall on same level from slipping, tripping and stumbling without subsequent striking against object, initial encounter; Y90.8 Blood alcohol level of 240 mg/100 ml or more
CPT/HCPCS: 96361 ×2; 96374 ×2; 99285 ×2; 36415; 80053; 83690; 83735; 84100; 85025; 80320; 72170; 71045; 72125; 70450; J2270

== ENCOUNTER 2023-08-15 19:28 | Inpatient (IN) | payer BC, OTHER ==
--- NOTE | 2023-08-15 19:51 | ED ---
General Adult HPI - General Chief complaint: Alcohol Stated complaint: ETOH Time Seen by Provider: 08/15/23 19:38 Source: patient, EMS, RN notes reviewed Mode of arrival: EMS Limitations: no limitations - History of Present Illness Initial comments: Patient is a 61-year-old female presenting to the emergency department by EMS for concerns for fall. Patient states she slipped and fell on her bottom. Patient has some discomfort there. Patient states she was unable to get up on her own. Patient does have a history of alcohol use, including tonight. Patient denies any head injury or loss of consciousness. Patient unclear when she actually fell but believes it was tonight. - Related Data Home Medications Medication Instructions Recorded Confirmed No Known Home Medications 08/15/23 08/15/23 Allergies Allergy/AdvReac Type Severity Reaction Status Date / Time shellfish derived [Shellfish] Allergy Severe Dyspnea Verified 08/15/23 22:34 iodine Allergy Rash/Hives Verified 08/15/23 22:34 Sulfa (Sulfonamide Allergy Rash/Hives Verified 08/15/23 22:34 Antibiotics) Review of Systems ROS Statement: Those systems with pertinent positive or pertinent negative responses have been documented in the HPI. ROS Other: All systems not noted in ROS Statement are negative. Constitutional: Denies: fever Eyes: Denies: eye pain ENT: Denies: ear pain Respiratory: Denies: cough Cardiovascular: Denies: chest pain Endocrine: Denies: fatigue Gastrointestinal: Denies: abdominal pain Musculoskeletal: Reports: as per HPI Past Medical History Past Medical History: Hypertension, Osteoarthritis (OA) Additional Past Medical History / Comment(s): Fall September 2019 with neck injury/L arm weak/decreased sensation and weakness to L leg-sent to 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 History of Any Multi-Drug Resistant Organisms: None Reported Past Surgical History: Back Surgery Additional Past Surgical History / Comment(s): Cervical surgery at [facility] d/t injury, colonoscopies/benign polypectomy Past Anesthesia/Blood Transfusion Reactions: No Reported Reaction, Motion Sickness Additional Past Anesthesia/Blood Transfusion Reaction / Comment(s): PT has clausterphobia. Past Psychological History: Anxiety Smoking Status: Current some day smoker Past Alcohol Use History: Abuse, Daily, Occasional Past Drug Use History: None Reported - Past Family History Mother Family Medical History: Cancer Additional Family Medical History / Comment(s): Mother of melanoma Father Family Medical History: No Reported History Additional Family Medical History / Comment(s): Father is healthy General Exam Limitations: no limitations General appearance: alert, in no apparent distress, other (Covered in stool) Head exam: Present: atraumatic Eye exam: Present: normal appearance, PERRL, EOMI ENT exam: Present: mucous membranes dry Respiratory exam: Present: normal lung sounds bilaterally Cardiovascular Exam: Present: regular rate, normal rhythm GI/Abdominal exam: Present: soft. Absent: tenderness Extremities exam: Present: normal inspection, full ROM. Absent: tenderness Back exam: Present: normal inspection. Absent: tenderness Neurological exam: Present: alert, CN II-XII intact. Absent: motor sensory deficit Expanded Neurological exam: Present: protecting the airway Patient oriented to: Present: person, place. Absent: time Speech: Present: fluid speech Motor strength exam: RUE: 5, LUE: 5, RLE: 5, LLE: 5 Eye Response: (4) open spontaneously Motor Response: (6) obeys commands Verbal Response: (4) confused conversation Psychiatric exam: Present: normal affect, normal mood Skin exam: Present: normal color Course Vital Signs 08/15/23 19:37 Temperature 99.2 F Pulse Rate 107 H Respiratory 18 Rate Blood Pressure 144/85 O2 Sat by Pulse 98 Oximetry Medical Decision Making - Medical Decision Making Was pt. sent in by a medical professional or institution (, PA, GRIT [employer]ER, urgent care, hospital, or fdc...) When possible be specific @ -No Did you speak to anyone other than the patient for history (EMS, parent, family, police, friend...)? What history was obtained from this source @ -EMS does help provide history as patient is a poor historian Did you review nursing and triage notes (agree or disagree)? Why? @ -I reviewed and agree with nursing and triage notes Were old charts reviewed (outside hosp., previous admission, EMS record, old EKG, old radiological studies, urgent care reports/EKG's, fdc records)? Report findings @ -No old charts were reviewed Differential Diagnosis (chest pain, altered mental status, abdominal pain women, abdominal pain men, vaginal bleeding, weakness, fever, dyspnea, syncope, headache, dizziness, GI bleed, back pain, seizure, CVA, palpatations, mental health, musculoskeletal)? @ -Differential Weakness: Hypoglycemia, shock, sepsis, hyponatremia, anemia, infection, [place], ETOH, adverse medicine reaction, overdose, stroke, this is not meant to be an all-inclusive list. EKG interpreted by me (3pts min.). @ -As above X-rays interpreted by me (1pt min.). @ -Chest and pelvis x-ray do not reveal any acute abnormality. CT interpreted by me (1pt min.). @ -CT brain without acute abnormality U/S interpreted by me (1pt. min.). @ -None done What testing was considered but not performed or refused? (CT, X-rays, U/S, labs)? Why? @ -None What meds were considered but not given or refused? Why? @ -None Did you discuss the management of the patient with other professionals (professionals i.e. , PA, GRIT BLASTER, lab, RT, psych nurse, social welfare research worker, yacht hand, teacher, weapons officer naval activity, case therapist)? Give summary @ -Case was discussed with Dr. mullen, who will admit covering hospital call Was smoking cessation discussed for >3mins.? @ -No Was critical care preformed (if so, how long)? @ -32 minutes critical care time Were there social determinants of health that impacted care today? How? (Homelessness, low income, unemployed, alcoholism, drug addiction, transportation, low edu. Level, literacy, decrease access to med. care, fci, rehab)? @ -No Was there de-escalation of care discussed even if they declined (Discuss DNR or withdrawal of care, Hospice)? DNR status @ -No What co-morbidities impacted this encounter? (DM, HTN, Smoking, COPD, CAD, Cancer, CVA, ARF, Chemo, Hep., AIDS, mental health diagnosis, sleep apnea, morbid obesity)? @ -None Was patient admitted / discharged? Hospital course, mention meds given and route, prescriptions, significant lab abnormalities, going to OR and other pertinent info. @ -Patient present to cover with stool with generalized weakness. Patient is an alcohol withdrawal with a [place] 16. Patient also has evidence of urinary tract infection. There is concern for sepsis diagnosed at 2320. Blood culture and lactic acid and IV antibiotics have all been ordered. Patient will be admitted Undiagnosed new problem with uncertain prognosis? @ -No Drug Therapy requiring intensive monitoring for toxicity (Heparin, Nitro, Insulin, Cardizem)? @ -No Were any procedures done? @ -No Diagnosis/symptom? @ -Alcohol withdrawal, UTI, sepsis Acute, or Chronic, or Acute on Chronic? @ -Acute, acute, acute Uncomplicated (without systemic symptoms) or Complicated (systemic symptoms)? @ -default Side effects of treatment? @ -No Exacerbation, Progression, or Severe Exacerbation? @ -No Poses a threat to life or bodily function? How? (Chest pain, [place], [place], pneumonia, PE, COPD, DKA, ARF, appy, cholecystitis, CVA, Diverticulitis, Homicidal, Suicidal, threat to staff... and all critical care pts) @ -No - Lab Data Result diagrams: 08/15/23 20:01 08/15/23 20:02 Lab Results 08/15/23 08/15/23 08/15/23 Range/Units 20:01 20:01 20:02 WBC 13.6 H (3.8-10.6) k/uL RBC 4.26 (3.80-5.40) m/uL Hgb 14.4 (11.4-16.0) gm/dL Hct 43.1 (34.0-46.0) % MCV 101.2 H (80.0-100.0) fL MCH 33.8 (25.0-35.0) pg MCHC 33.4 (31.0-37.0) g/dL RDW 13.4 (11.5-15.5) % Plt Count 142 L (150-450) k/uL MPV 8.8 Neutrophils % 89 % Lymphocytes % 7 % Monocytes % 2 % Eosinophils % 0 % Basophils % 0 % Neutrophils # 12.1 H (1.3-7.7) k/uL Lymphocytes # 1.0 (1.0-4.8) k/uL Monocytes # 0.3 (0-1.0) k/uL Eosinophils # 0.1 (0-0.7) k/uL Basophils # 0.1 (0-0.2) k/uL Macrocytosis Slight Sodium 133 L (137-145) mmol/L Potassium 3.4 L (3.5-5.1) mmol/L Chloride 91 L (98-107) mmol/L Carbon Dioxide 12 L (22-30) mmol/L Anion Gap 30 mmol/L BUN 8 (7-17) mg/dL Creatinine 0.54 (0.52-1.04) mg/dL Est GFR (CKD-EPI)AfAm >90 (>60 ml/min/1.73 sqM) Est GFR (CKD-EPI)NonAf >90 (>60 ml/min/1.73 sqM) Glucose 111 H (74-99) mg/dL Lactic Ac Sepsis Rflx Plasma Lactic Acid Samuel 2.5 H* (0.7-2.0) mmol/L Calcium 9.5 (8.4-10.2) mg/dL Magnesium 1.1 L (1.6-2.3) mg/dL Total Bilirubin 1.9 H (0.2-1.3) mg/dL AST 75 H (14-36) U/L ALT 46 H (4-34) U/L Alkaline Phosphatase 80 (38-126) U/L Creatine Kinase 98 (30-135) U/L Total Protein 7.7 (6.3-8.2) g/dL Albumin 4.8 (3.5-5.0) g/dL Urine Color Urine Appearance (Clear) Urine pH (5.0-8.0) Ur Specific [place] (1.001-1.035) Urine Protein (Negative) Urine Glucose (UA) (Negative) Urine Ketones (Negative) Urine Blood (Negative) Urine Nitrite (Negative) Urine Bilirubin (Negative) Urine Urobilinogen (<2.0) mg/dL Ur Leukocyte Esterase (Negative) Urine RBC (0-5) /hpf Urine WBC (0-5) /hpf Ur Squamous Epith Cells (0-4) /hpf Urine Bacteria (None) /hpf Hyaline Casts (0-2) /lpf Urine Mucus (None) /hpf Urine Opiates Screen (NotDetected) Ur Oxycodone Screen (NotDetected) Urine Methadone Screen (NotDetected) Ur Propoxyphene Screen (NotDetected) Ur Barbiturates Screen (NotDetected) U Tricyclic Antidepress (NotDetected) Ur Phencyclidine Scrn (NotDetected) Ur Amphetamines Screen (NotDetected) U Methamphetamines Scrn (NotDetected) U Benzodiazepines Scrn (NotDetected) Urine Cocaine Screen (NotDetected) U Marijuana (THC) Screen (NotDetected) Serum Alcohol <10 mg/dL 08/15/23 08/15/23 Range/Units 20:35 21:31 WBC (3.8-10.6) k/uL RBC (3.80-5.40) m/uL Hgb (11.4-16.0) gm/dL Hct (34.0-46.0) % MCV (80.0-100.0) fL MCH (25.0-35.0) pg MCHC (31.0-37.0) g/dL RDW (11.5-15.5) % Plt Count (150-450) k/uL MPV Neutrophils % % Lymphocytes % % Monocytes % % Eosinophils % % Basophils % % Neutrophils # (1.3-7.7) k/uL Lymphocytes # (1.0-4.8) k/uL Monocytes # (0-1.0) k/uL Eosinophils # (0-0.7) k/uL Basophils # (0-0.2) k/uL Macrocytosis Sodium (137-145) mmol/L Potassium (3.5-5.1) mmol/L Chloride (98-107) mmol/L Carbon Dioxide (22-30) mmol/L Anion Gap mmol/L BUN (7-17) mg/dL Creatinine (0.52-1.04) mg/dL Est GFR (CKD-EPI)AfAm (>60 ml/min/1.73 sqM) Est GFR (CKD-EPI)NonAf (>60 ml/min/1.73 sqM) Glucose (74-99) mg/dL Lactic Ac Sepsis Rflx Y Plasma Lactic Acid Samuel (0.7-2.0) mmol/L Calcium (8.4-10.2) mg/dL Magnesium (1.6-2.3) mg/dL Total Bilirubin (0.2-1.3) mg/dL AST (14-36) U/L ALT (4-34) U/L Alkaline Phosphatase (38-126) U/L Creatine Kinase (30-135) U/L Total Protein (6.3-8.2) g/dL Albumin (3.5-5.0) g/dL Urine Color Light [place] Urine Appearance Cloudy H (Clear) Urine pH 6.0 (5.0-8.0) Ur Specific [place] 1.020 (1.001-1.035) Urine Protein 3+ H (Negative) Urine Glucose (UA) Negative (Negative) Urine Ketones 4+ (Negative) Urine Blood Moderate (Negative) Urine Nitrite Negative (Negative) Urine Bilirubin 1+ (Negative) Urine Urobilinogen 4.0 (<2.0) mg/dL Ur Leukocyte Esterase Large (Negative) Urine RBC 50 H (0-5) /hpf Urine WBC >182 H (0-5) /hpf Ur Squamous Epith Cells 1 (0-4) /hpf Urine Bacteria Moderate H (None) /hpf Hyaline Casts 27 H (0-2) /lpf Urine Mucus Many H (None) /hpf Urine Opiates Screen Not Detected (NotDetected) Ur Oxycodone Screen Not Detected (NotDetected) Urine Methadone Screen Not Detected (NotDetected) Ur Propoxyphene Screen Not Detected (NotDetected) Ur Barbiturates Screen Not Detected (NotDetected) U Tricyclic Antidepress Not Detected (NotDetected) Ur Phencyclidine Scrn Not Detected (NotDetected) Ur Amphetamines Screen Not Detected (NotDetected) U Methamphetamines Scrn Not Detected (NotDetected) U Benzodiazepines Scrn Not Detected (NotDetected) Urine Cocaine Screen Not Detected (NotDetected) U Marijuana (THC) Screen Not Detected (NotDetected) Serum Alcohol mg/dL Critical Care Time Critical Care Time: Yes Total Critical Care Time: 32 Disposition Clinical Impression: Alcohol withdrawal, UTI (urinary tract infection), Sepsis, Hypomagnesemia Disposition: ADMITTED IP TO THIS HOSP Condition: Serious Is patient prescribed a controlled substance at d/c from ED?: No Referrals: None,Stated [Primary Care Provider] - 1-2 days Time of Disposition: 23:24
[2023-08-15 20:13] LABS: Basophils # (A) 0.1 k/uL (0-0.2); Basophils % (A) 0 %; Eosinophils # (A) 0.1 k/uL (0-0.7); Eosinophils % (A) 0 %; HCT 43.1 % (34.0-46.0); HGB 14.4 gm/dL (11.4-16.0); Lymphocytes % (A) 7 %; MCH 33.8 pg (25.0-35.0); MCHC 33.4 g/dL (31.0-37.0); MCV 101.2 fL (80.0-100.0); Macrocytosis Slight; Mean Platelet Volume 8.8; Monocytes # (A) 0.3 k/uL (0-1.0); Monocytes % (A) 2 %; Neutrophils # (A) 12.1 k/uL (1.3-7.7); Neutrophils % (A) 89 %; Platelet Count 142 k/uL (150-450); RBC 4.26 m/uL (3.80-5.40); RDW 13.4 % (11.5-15.5); WBC 13.6 k/uL (3.8-10.6)
--- NOTE | 2023-08-15 20:22 | XR ---
EXAMINATION TYPE: XR pelvis AP view DATE OF EXAM: 08/15/2023 8:15 PM CLINICAL INDICATION:Female, 63 years old with history of fall; COMPARISON: None TECHNIQUE: The pelvis was examined in a single projection. FINDINGS: There is no evidence of fracture or dislocation. There is no soft tissue abnormality. No a bnormal calcifications are present. The spine appears intact. The hips appear intact. Osteophyte form ation of the superior acetabulum bilaterally with mild joint space narrowing. IMPRESSION: 1. No acute osseous pathology. 2. Mild bilateral hip osteoarthrosis.
--- NOTE | 2023-08-15 20:25 | XR ---
EXAMINATION TYPE: XR chest 1V portable DATE OF EXAM: 08/15/2023 8:15 PM CLINICAL INDICATION:Female, 63 years old with history of fall; [facility] COMPARISON: Chest radiographs from 08/02/2023 TECHNIQUE: XR chest 1V portable Frontal view of the chest. FINDINGS: Lungs/Pleura: There is no evidence of pleural effusion, focal consolidation, or pneumothorax. Pulmonary vascularity: Unremarkable. Heart/mediastinum: Cardiomediastinal silhouette is unremarkable. Musculoskeletal: No acute osseous pathology. IMPRESSION: No acute cardiopulmonary disease/process.
[2023-08-15] MEDS ORDERED: SODIUM CHLORIDE 0.9% 1,000 ML with MVI, ADULT NO.4 WITH VIT K 10 ML, THIAMINE 100 MG, F... IV ONE ×4 (20:30)
[2023-08-15 20:31] LABS: ALT 46 U/L (4-34); AST 75 U/L (14-36); African American GFR (CKD) >90 (>60 ml/min/1.73 sqM); Albumin 4.8 g/dL (3.5-5.0); Alcohol <10 mg/dL; Alkaline Phosphatase 80 U/L (38-126); Anion Gap 30 mmol/L; Blood Urea Nitrogen 8 mg/dL (7-17); Calcium 9.5 mg/dL (8.4-10.2); Carbon Dioxide 12 mmol/L (22-30); Chloride 91 mmol/L (98-107); Creatine Kinase 98 U/L (30-135); Glucose 111 mg/dL (74-99); Magnesium 1.1 mg/dL (1.6-2.3); Non-African American GFR(CKD) >90 (>60 ml/min/1.73 sqM); Potassium 3.4 mmol/L (3.5-5.1); Sodium 133 mmol/L (137-145); Total Bilirubin 1.9 mg/dL (0.2-1.3); Total Protein 7.7 g/dL (6.3-8.2)
[2023-08-15] MEDS ORDERED: MAGNESIUM OXIDE 400 MG TAB PO STA (20:33)
[2023-08-15] MEDS ORDERED: SODIUM CHLORIDE 0.9% 500 ML 500 ML IV STA (20:35)
--- NOTE | 2023-08-15 21:32 | CT ---
EXAMINATION TYPE: CT brain wo con CT DLP: 1093.4 mGycm, Automated exposure control for dose reduction was used. DATE OF EXAM: 08/15/2023 9:12 PM COMPARISON: 08/02/2023. CLINICAL INDICATION:Female, 63 years old with history of altered, AMS. Alcohol. TECHNIQUE: Brain: Axial CT images of the brain were obtained with coronal and sagittal reformats created and rev iewed. Contrast used: None. Oral contrast used: None. FINDINGS: Brain: Extra-axial spaces: No abnormal extra-axial fluid collections. Ventricular system: Within normal limits Cerebral parenchyma: No acute intraparenchymal hemorrhage or mass effect. The mora-white junction is well differentiated. Cerebellum: Unremarkable. Mass effect: No evidence of midline shift. Intracranial vasculature: unremarkable Soft tissues: Normal. Calvarium/osseous structures: No depressed skull fracture. Paranasal sinuses and mastoid air cells: Mild scattered paranasal sinus disease. Visualized orbits: Orbital contents are intact. IMPRESSION: No acute intracranial process.
[2023-08-15] MEDS ORDERED: LORazepam 2 MG/ML INJ IV STA (21:36)
[2023-08-15] MEDS: MAGNESIUM SULFATE-D5W PMX 1 GM in DEXTROSE/WATER 1 100ML.BAG IVPB SCH ×2 (21:52→23:08)
[2023-08-15 22:07] LABS: Amphetamine Screen,Urine Not Detected (NotDetected); Barbiturate Screen,Urine Not Detected (NotDetected); Benzodiazepines Screen,Urine Not Detected (NotDetected); Cocaine Screen,Urine Not Detected (NotDetected); Methadone Screen, Urine Not Detected (NotDetected); Opiate Screen,Urine Not Detected (NotDetected); Oxycodone Screen, Urine Not Detected (NotDetected); Phencyclidine Screen,Urine Not Detected (NotDetected); Tricyclic Antidepressant,Urine Not Detected (NotDetected); Urn Cannabinoid Scrn Not Detected (NotDetected)
[2023-08-15 22:12] LABS: Appearance,Urine Cloudy (Clear); Bilirubin,Urine 1+ (Negative); Blood,Urine Moderate (Negative); Color,Urine Light Orange; Glucose,Urine (UA) Negative (Negative); Ketones,Urine 4+ (Negative); Leukocyte Esterase,Urine Large (Negative); Nitrite,Urine Negative (Negative); Protein,Urine 3+ (Negative)
[2023-08-15 22:14] LABS: Bacteria,Urine Moderate /hpf; Hyaline Casts,Urine 27 /lpf (0-2); Mucus,Urine Many /hpf; RBC,Urine 50 /hpf (0-5); Squamous Epithelial Cell,Urine 1 /hpf (0-4); WBC,Urine >182 /hpf (0-5)
[2023-08-15] MEDS ORDERED: NALOXONE 0.4 MG/ML 1 ML VIAL IV PRN (23:24)
[2023-08-15] MEDS ORDERED: ACETAMINOPHEN TAB 325 MG TAB PO PRN (23:24)
[2023-08-15] MEDS ORDERED: LORazepam 1 MG TAB PO PRN ×3 (23:25)
[2023-08-15] MEDS ORDERED: LORazepam 2 MG/ML INJ IV PRN (23:25)
[2023-08-16] MEDS: SODIUM CHLORIDE 0.9% 1,000 ML IV SCH ×3 (00:15→15:55)
--- NOTE | 2023-08-16 03:05 | P.HPIM ---
History of Present Illness H&P Date: 08/15/23 Patient is a 63-year-old female with a PMH of alcohol abuse who was brought to the emergency room via EMS for falls. Upon EMS arrival at the scene, they found the patient's residence inundated with empty liquor bottles and beer cans. The patient reports that she has been feeling weak over the past few days and has been unable to ambulate and was attempting to use the restroom when she lost her balance, falling down, without losing consciousness. She reports continued diffuse weakness at the time of interview. States that she only had 2-3 beers earlier today. Does report poor oral intake due to her weakness. Does admit to a lifelong history of alcohol use. Denies urinary complaints, abdominal pain, chest pain, shortness of breath, fever, chills, cough, nausea, vomiting. In the emergency room, CT brain was unremarkable with chest x-ray and pelvis x- ray also unremarkable. Laboratory evaluation revealed leukocytosis of 13.6, MCV 11.2, platelet: 42, sodium 133, potassium 3.4, lactic acid 2.5, magnesium 1.1, with a UA consistent with UTI, and alcohol level less than 10. ED documentation reviewed and case discussed with ED provider. Review of systems: Pertinent positives and negatives as discussed in HPI, a complete review of systems was performed and all other systems are negative. Physical examination: Vital signs reviewed General: non toxic, no distress, appears at stated age, normal weight Derm: no unusual rashes/lesions, warm Head: atraumatic, normocephalic, symmetric Eyes: EOMI, no lid lag, anicteric sclera, pupils equal round reactive to light ENT: Nose and ears atraumatic Neck: No cervical lymphadenopathy, trachea midline, supple Mouth: no lip lesion, mucus membranes moist Cardiovascular: S1S2 reg, no murmur, positive dorsalis pedis pulse bilateral, no edema Lungs: CTA bilateral, no rhonchi, no rales, no accessory muscle use Abdominal: soft, nontender to palpation, no guarding Ext: muscle strength 4 out of 5 in all 4 extremities grossly, no gross muscle atrophy, no contractures, Neuro: CN II-XI grossly intact, no gross focal neuro deficits, outstretched hand tremor with tongue fasciculations noted Psych: Lethargic, oriented to person and place only Assessment: Sepsis secondary to UTI Failure to thrive, suspect due to alcohol abuse Macrocytosis Thrombocytopenia Hypokalemia Hypomagnesemia Imaging: In the emergency room, CT brain was unremarkable with chest x-ray and pelvis x- ray also unremarkable. Data Review: Laboratory evaluation revealed leukocytosis of 13.6, MCV 11.2, platelet: 42, sodium 133, potassium 3.4, lactic acid 2.5, magnesium 1.1, with a UA consistent with UTI, and alcohol level less than 10. Plan: Continue with ceftriaxone 2 g every 24 hours Follow-up blood and urine cultures Continue IV fluid with normal saline 130 mL/h Continue with thiamine CIWA protocol with Ativan IVP prn Replace potassium and magnesium and monitor for improvement Check B12 and folate levels PT consult DVT prophylaxis: Lovenox subcu The patient is admitted with an anticipated greater than 2 midnight stay for e valuation of UTI CODE STATUS: Full Code Discussed with: Patient Anticipated discharge place: Home Past Medical History Past Medical History: Hypertension, Osteoarthritis (OA) Additional Past Medical History / Comment(s): FallSeptember 2019 with neck injury/L arm weak/decreased sensation and weakness to L leg-sent to [facility] and had cervical surgery, chronic cervical/L shoulder pain since surgery, chronic low back pain for years, ETOH abuse-pt states she has had withdrawals/shaking/weakness/nausea/one seizure long ago, alcoholic hepatitis, 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 History of Any Multi-Drug Resistant Organisms: None Reported Past Surgical History: Back Surgery Additional Past Surgical History / Comment(s): Cervical surgery at [facility] d/t injury, colonoscopies/benign polypectomy Past Anesthesia/Blood Transfusion Reactions: No Reported Reaction, Motion Sickness Additional Past Anesthesia/Blood Transfusion Reaction / Comment(s): PT has clausterphobia. Past Psychological History: Anxiety Smoking Status: Current some day smoker Past Alcohol Use History: Abuse, Daily, Occasional Past Drug Use History: None Reported - Past Family History Mother Family Medical History: Cancer Additional Family Medical History / Comment(s): Mother of melanoma Father Family Medical History: No Reported History Additional Family Medical History / Comment(s): Father is healthy Medications and Allergies Home Medications Medication Instructions Recorded Confirmed Type No Known Home Medications 08/15/23 08/15/23 History Allergies Allergy/AdvReac Type Severity Reaction Status Date / Time shellfish derived [Shellfish] Allergy Severe Dyspnea Verified 08/15/23 22:34 iodine Allergy Rash/Hives Verified 08/15/23 22:34 Sulfa (Sulfonamide Allergy Rash/Hives Verified 08/15/23 22:34 Antibiotics) Physical Exam Vitals: Vital Signs Temp Pulse Resp BP Pulse Ox 08/15/23 19:37 99.2 F 107 H 18 144/85 98 Intake and Output 08/15/23 08/15/23 08/16/23 14:59 22:59 06:59 Other: Weight 72.575 kg Results CBC & Chem 7: 08/15/23 20:01 08/15/23 20:02 Labs: Abnormal Lab Results - Last 24 Hours (Table) 08/15/23 08/15/23 08/15/23 Range/Units 20:01 20:01 20:02 WBC 13.6 H (3.8-10.6) k/uL MCV 101.2 H (80.0-100.0) fL Plt Count 142 L (150-450) k/uL Neutrophils # 12.1 H (1.3-7.7) k/uL Sodium 133 L (137-145) mmol/L Potassium 3.4 L (3.5-5.1) mmol/L Chloride 91 L (98-107) mmol/L Carbon Dioxide 12 L (22-30) mmol/L Glucose 111 H (74-99) mg/dL Plasma Lactic Acid Samuel 2.5 H* (0.7-2.0) mmol/L Magnesium 1.1 L (1.6-2.3) mg/dL Total Bilirubin 1.9 H (0.2-1.3) mg/dL AST 75 H (14-36) U/L ALT 46 H (4-34) U/L Urine Appearance (Clear) Urine Protein (Negative) Urine RBC (0-5) /hpf Urine WBC (0-5) /hpf Urine Bacteria (None) /hpf Hyaline Casts (0-2) /lpf Urine Mucus (None) /hpf 08/15/23 Range/Units 21:31 WBC (3.8-10.6) k/uL MCV (80.0-100.0) fL Plt Count (150-450) k/uL Neutrophils # (1.3-7.7) k/uL Sodium (137-145) mmol/L Potassium (3.5-5.1) mmol/L Chloride (98-107) mmol/L Carbon Dioxide (22-30) mmol/L Glucose (74-99) mg/dL Plasma Lactic Acid Samuel (0.7-2.0) mmol/L Magnesium (1.6-2.3) mg/dL Total Bilirubin (0.2-1.3) mg/dL AST (14-36) U/L ALT (4-34) U/L Urine Appearance Cloudy H (Clear) Urine Protein 3+ H (Negative) Urine RBC 50 H (0-5) /hpf Urine WBC >182 H (0-5) /hpf Urine Bacteria Moderate H (None) /hpf Hyaline Casts 27 H (0-2) /lpf Urine Mucus Many H (None) /hpf
[2023-08-16] MEDS: POTASSIUM CHLORIDE ER 20 MEQ TAB.ER PO STA ×2 (03:34→03:47)
[2023-08-16] MEDS: MAGNESIUM SULFATE-D5W PMX 1 GM in DEXTROSE/WATER 1 100ML.BAG IVPB SCH ×2 (03:57→05:58)
[2023-08-16] MEDS: POTASSIUM CHLORIDE 10 MEQ in WATER FOR INJECTION 1 100ML.BAG IVPB SCH ×4 (04:15→08:51)
[2023-08-16] MEDS: LORazepam 0.5 MG TAB PO PRN ×4 (07:48→20:44)
[2023-08-16 08:21] LABS: ALT 38 U/L (4-34); AST 59 U/L (14-36); African American GFR (CKD) >90 (>60 ml/min/1.73 sqM); Albumin 3.8 g/dL (3.5-5.0); Alkaline Phosphatase 60 U/L (38-126); Anion Gap 15 mmol/L; Blood Urea Nitrogen 8 mg/dL (7-17); Calcium 8.3 mg/dL (8.4-10.2); Carbon Dioxide 20 mmol/L (22-30); Chloride 97 mmol/L (98-107); Glucose 79 mg/dL (74-99); Magnesium 2.1 mg/dL (1.6-2.3); Non-African American GFR(CKD) >90 (>60 ml/min/1.73 sqM); Sodium 132 mmol/L (137-145); Total Bilirubin 1.1 mg/dL (0.2-1.3); Total Protein 6.5 g/dL (6.3-8.2)
[2023-08-16 08:36] LABS: Basophils % (A) 0 %; Eosinophils # (A) 0.1 k/uL (0-0.7); Eosinophils % (A) 1 %; HCT 39.5 % (34.0-46.0); HGB 13.3 gm/dL (11.4-16.0); Lymphocytes # (A) 1.9 k/uL (1.0-4.8); Lymphocytes % (A) 17 %; MCH 34.2 pg (25.0-35.0); MCHC 33.7 g/dL (31.0-37.0); MCV 101.7 fL (80.0-100.0); Macrocytosis Slight; Mean Platelet Volume 9.1; Monocytes # (A) 0.5 k/uL (0-1.0); Monocytes % (A) 5 %; Neutrophils # (A) 8.3 k/uL (1.3-7.7); Neutrophils % (A) 75 %; Platelet Count 106 k/uL (150-450); RBC 3.89 m/uL (3.80-5.40); RDW 13.9 % (11.5-15.5); WBC 11.1 k/uL (3.8-10.6)
[2023-08-16] MEDS: ENOXAPARIN 40 MG/0.4 ML SYRINGE SQ SCH (08:51)
[2023-08-16] MEDS: FAMOTIDINE 20 MG TAB PO SCH ×2 (08:52→20:08)
[2023-08-16] MEDS ORDERED: THIAMINE 100 MG TAB PO SCH (09:00)
[2023-08-16] MEDS: THIAMINE 100 MG/ML 2 ML VIAL IM SCH (09:29)
--- NOTE | 2023-08-16 14:55 | P.PN ---
Subjective Progress Note Date: 08/16/23 (delayed charting seen at 0945) Patient is a 63-year-old female with known alcohol dependency, chronic back pain, alcoholic hepatitis, alcoholic myopathy, and prior UTIs who presented to [facility] emergency department with complaints of inability to ambulate and weakness. In the emergency department she underwent an extensive evaluation. Initial vitals were remarkable for a pulse of 107. Initial laboratory analysis was remarkable for white blood cell count 13.6, platelets 142, lactic acid 2.5, magnesium 1.1, total bilirubin 1.9, AST 75, a healthy 46. Her serum alcohol was negative. Pelvic, chest x-ray, and CT had all showed no acute process. His son have a probable urinary tract infection. She was started on Rocephin and IV fluids. Arrangements are made for admission. Patient seen and examined at bedside. She reports feeling very weak. At home she reports her legs were not really working. She denies any difficulty with gait they only but states that she had some weakness. She does report that she has a history of alcohol withdrawal in the past requiring hospitalization, she has never required an ICU admission. She was drinking only 3 beers daily for the last couple of days but prior to that was drinking a pint daily. Vital signs reviewed General: nontoxic, no distress, appears at stated age, disheveled Derm: Various bruises in different stages of healing Cardiovascular: S1S2 reg, no murmur, positive posterior tibial pulse bilateral, Lungs: CTA bilateral, no rhonchi, no rales , no accessory muscle use Abdominal: soft, nontender to palpation, no guarding, no appreciable organomegaly Ext: no gross muscle atrophy, no edema b/l lower extremities, no contractures Neuro: CN II-XI grossly intact, no focal neuro deficits Psych: Alert, oriented, appropriate affect Assessment/Plan: UTI with sepsis, present on admission ETOH dependency with impending withdrawal Hyponatremia Hypokalemia Hypomagnesemia Anion gap metabolic acidosis Lactic acidosis Generalized weakness Thromboctyopenia, transaminitis due to ETOH -Continue with Rocephin 2 g IV piggyback every 24 hours, await urine culture, await blood cultures, continue with normal saline at 130 mL/h -Calcium chloride 40 mEq by mouth 1 now -Continue oral Ativan dosing according to see Wass scale. Monitor patient closely for signs of sedation. Start Librium 20 mg by mouth 3 times daily -PT/OT consultation -B12 level normal. Start thiamine 100 g IM daily - repeat CBC in AM to monitor infection, repeat CMP in AM to monitor liver enzymes. Imaging: None new Data Review: Labs reviewed from today include CBC, CMP, and B12 level which are remarkable for white blood cell count 11.1, platelets 106, sodium 132, potassium 3, chloride 97, carbon dioxide 20, anion gap 15, and vitamin B12 1015 DVT prophylaxis: Lovenox Anticipated discharge date: Pending Clinical Course Anticipated discharge place: Pending Clinical Course This dictation was prepared using [employer] voice recognition software. Though every attempt is made to correct errors during dictation some may still exist. Objective - Vital Signs Vital signs: Vital Signs Temp 99.2 F 08/15/23 19:37 Pulse 64 08/16/23 12:00 Resp 18 08/16/23 12:00 BP 124/85 08/16/23 12:00 Pulse Ox 96 08/16/23 12:00 FiO2 Intake & Output 08/15/23 08/16/23 08/16/23 18:59 06:59 18:59 Weight 72.575 kg - Labs CBC & Chem 7: 08/16/23 07:19 08/16/23 07:19 Labs: Abnormal Lab Results - Last 24 Hours (Table) 08/15/23 08/15/23 08/15/23 Range/Units 20:01 20:01 20:02 WBC 13.6 H (3.8-10.6) k/uL MCV 101.2 H (80.0-100.0) fL Plt Count 142 L (150-450) k/uL Neutrophils # 12.1 H (1.3-7.7) k/uL Sodium 133 L (137-145) mmol/L Potassium 3.4 L (3.5-5.1) mmol/L Chloride 91 L (98-107) mmol/L Carbon Dioxide 12 L (22-30) mmol/L Creatinine (0.52-1.04) mg/dL Glucose 111 H (74-99) mg/dL Plasma Lactic Acid Samuel 2.5 H* (0.7-2.0) mmol/L Calcium (8.4-10.2) mg/dL Magnesium 1.1 L (1.6-2.3) mg/dL Total Bilirubin 1.9 H (0.2-1.3) mg/dL AST 75 H (14-36) U/L ALT 46 H (4-34) U/L Vitamin B12 (200.0-944.0) pg/mL Urine Appearance (Clear) Urine Protein (Negative) Urine RBC (0-5) /hpf Urine WBC (0-5) /hpf Urine Bacteria (None) /hpf Hyaline Casts (0-2) /lpf Urine Mucus (None) /hpf 08/15/23 08/16/23 08/16/23 Range/Units 21:31 07:19 07:19 WBC 11.1 H (3.8-10.6) k/uL MCV 101.7 H (80.0-100.0) fL Plt Count 106 L (150-450) k/uL Neutrophils # 8.3 H (1.3-7.7) k/uL Sodium 132 L (137-145) mmol/L Potassium 3.0 L (3.5-5.1) mmol/L Chloride 97 L (98-107) mmol/L Carbon Dioxide 20 L (22-30) mmol/L Creatinine 0.30 L (0.52-1.04) mg/dL Glucose (74-99) mg/dL Plasma Lactic Acid Samuel (0.7-2.0) mmol/L Calcium 8.3 L (8.4-10.2) mg/dL Magnesium (1.6-2.3) mg/dL Total Bilirubin (0.2-1.3) mg/dL AST 59 H (14-36) U/L ALT 38 H (4-34) U/L Vitamin B12 1015.0 H (200.0-944.0) pg/mL Urine Appearance Cloudy H (Clear) Urine Protein 3+ H (Negative) Urine RBC 50 H (0-5) /hpf Urine WBC >182 H (0-5) /hpf Urine Bacteria Moderate H (None) /hpf Hyaline Casts 27 H (0-2) /lpf Urine Mucus Many H (None) /hpf
[2023-08-17] MEDS: SODIUM CHLORIDE 0.9% 1,000 ML IV SCH ×3 (00:08→21:11)
[2023-08-17] MEDS: LORazepam 0.5 MG TAB PO PRN (05:52)
[2023-08-17] MEDS: ENOXAPARIN 40 MG/0.4 ML SYRINGE SQ SCH (08:48)
[2023-08-17] MEDS: FAMOTIDINE 20 MG TAB PO SCH ×2 (08:48→21:10)
[2023-08-17] MEDS: THIAMINE 100 MG/ML 2 ML VIAL IM SCH (08:48)
[2023-08-17 10:03] LABS: ALT 35 U/L (4-34); AST 51 U/L (14-36); African American GFR (CKD) >90 (>60 ml/min/1.73 sqM); Albumin 3.1 g/dL (3.5-5.0); Albumin/Globulin Ratio 1.2; Alkaline Phosphatase 64 U/L (38-126); Anion Gap 10 mmol/L; Blood Urea Nitrogen 9 mg/dL (7-17); Calcium 8.1 mg/dL (8.4-10.2); Carbon Dioxide 22 mmol/L (22-30); Chloride 101 mmol/L (98-107); Globulin 2.6 g/dL; Glucose 121 mg/dL (74-99); Non-African American GFR(CKD) >90 (>60 ml/min/1.73 sqM); Sodium 133 mmol/L (137-145); Total Bilirubin 0.7 mg/dL (0.2-1.3); Total Protein 5.7 g/dL (6.3-8.2)
[2023-08-17 10:06] LABS: Potassium 2.3 mmol/L (3.5-5.1)
[2023-08-17 10:17] LABS: HCT 36.6 % (34.0-46.0); HGB 12.5 gm/dL (11.4-16.0); MCH 34.5 pg (25.0-35.0); MCHC 34.2 g/dL (31.0-37.0); MCV 100.8 fL (80.0-100.0); Mean Platelet Volume 8.6; Platelet Count 104 k/uL (150-450); RBC 3.63 m/uL (3.80-5.40); RDW 13.6 % (11.5-15.5); WBC 7.3 k/uL (3.8-10.6)
[2023-08-17] MEDS ORDERED: POTASSIUM CHLORIDE ER 20 MEQ TAB.ER PO STA (10:23)
[2023-08-17] MEDS: POTASSIUM CHLORIDE 10 MEQ in WATER FOR INJECTION 1 100ML.BAG IVPB SCH ×4 (10:39→15:13)
--- NOTE | 2023-08-17 14:58 | P.PN ---
Subjective Progress Note Date: 08/17/23 (victor hugo charting seen at 0845) Patient is a 63-year-old female with known alcohol dependency, chronic back pain, alcoholic hepatitis, alcoholic myopathy, and prior UTIs who presented to [facility] emergency department with complaints of inability to ambulate and weakness. In the emergency department she underwent an extensive evaluation. Initial vitals were remarkable for a pulse of 107. Initial laboratory analysis was remarkable for white blood cell count 13.6, platelets 142, lactic acid 2.5, magnesium 1.1, total bilirubin 1.9, AST 75, a healthy 46. Her serum alcohol was negative. Pelvic, chest x-ray, and CT had all showed no acute process. His son have a probable urinary tract infection. She was started on Rocephin and IV fluids. Arrangements are made for admission. Patient seen and examined at bedside. Patient seen and examined at bedside. Her weakness is better. She denies any nausea or vomiting. She has had some loose bowel movements. No other complaints currently. Vital signs reviewed General: nontoxic, no distress, appears at stated age, disheveled Derm: Various bruises in different stages of healing Cardiovascular: S1S2 reg, no murmur, positive posterior tibial pulse bilateral, Lungs: CTA bilateral, no rhonchi, no rales , no accessory muscle use Abdominal: soft, nontender to palpation, no guarding, no appreciable organomegaly Ext: no gross muscle atrophy, no edema b/l lower extremities, no contractures Neuro: CN II-XI grossly intact, no focal neuro deficits Psych: Alert, oriented, appropriate affect Assessment/Plan: Gram negative bacilli UTI with sepsis, present on admission ETOH dependency with withdrawal Hyponatremia Hypokalemia Generalized weakness Thromboctyopenia, transaminitis due to ETOH -Continue with Rocephin 2 g IV piggyback every 24 hours D # 2/5, await urine culture, DEcrease normal saline to 75 cc/hr -Potassium 40 mEq by mouth 1, potassium chloride 40 mEq IV piggyback 1, repeat potassium at 1500 -Continue oral Ativan dosing according to CIWA scale. Monitor patient closely for signs of sedation. Librium 20 mg by mouth 3 times daily -PT/OT recs -B12 level normal. thiamine 100 g IM daily - repeat CBC in AM to monitor infection, repeat CMP in AM to monitor liver enzymes. Diarrhea - suspect related to withdrawal - check C diff if negative then imodium. Resolved: Hypomagnesemia, Anion gap metabolic acidosis, Lactic acidosis Imaging: None new Data Review: Labs reviewed from today include CBC and complete metabolic profile which are remarkable for platelets of 104, sodium 133, potassium 2.3, AST 51, ALT 35 Urine culture with gram-negative bacilli Blood culture negative 24 hours DVT prophylaxis: Lovenox Anticipated discharge date: Pending Clinical Course Anticipated discharge place: Pending Clinical Course This dictation was prepared using [employer] voice recognition software. Though every attempt is made to correct errors during dictation some may still exist. Objective - Vital Signs Vital signs: Vital Signs Temp 99 F 08/17/23 14:04 Pulse 74 08/17/23 14:04 Resp 17 08/17/23 14:04 BP 125/74 08/17/23 14:04 Pulse Ox 97 08/17/23 14:04 FiO2 Intake & Output 08/16/23 08/17/23 08/17/23 18:59 06:59 18:59 Intake Total 1210 120 Balance 1210 120 Intake: Intake, IV Titration 850 Amount Sodium Chloride 0.9% 1, 800 000 ml @ 130 mls/hr IV . [id number] DANNI Rx#:[id number] cefTRIAXone 2 gm In 50 Sodium Chloride 0.9% 50 ml @ 100 mls/hr IVPB Q24H DANNI Rx#:[id number] Oral 360 120 Other: Voiding Method Diaper Diaper Diaper Incontinent Incontinent Incontinent # Voids 1 # Bowel Movements 1 2 - Labs CBC & Chem 7: 08/17/23 09:06 08/17/23 09:06 Labs: Abnormal Lab Results - Last 24 Hours (Table) 08/17/23 08/17/23 Range/Units 09:06 09:06 RBC 3.63 L (3.80-5.40) m/uL MCV 100.8 H (80.0-100.0) fL Plt Count 104 L (150-450) k/uL Sodium 133 L (137-145) mmol/L Potassium 2.3 L* (3.5-5.1) mmol/L Creatinine 0.29 L (0.52-1.04) mg/dL Glucose 121 H (74-99) mg/dL Calcium 8.1 L (8.4-10.2) mg/dL AST 51 H (14-36) U/L ALT 35 H (4-34) U/L Total Protein 5.7 L (6.3-8.2) g/dL Albumin 3.1 L (3.5-5.0) g/dL Microbiology - Last 24 Hours (Table) 08/16/23 01:43 Urine Culture - Preliminary Urine,Voided Gram Neg Bacilli 08/15/23 23:17 Blood Culture - Preliminary Blood 08/15/23 23:32 Blood Culture - Preliminary Blood
[2023-08-17 15:39] LABS: African American GFR (CKD) >90 (>60 ml/min/1.73 sqM); Anion Gap 10 mmol/L; Blood Urea Nitrogen 8 mg/dL (7-17); Calcium 8.2 mg/dL (8.4-10.2); Carbon Dioxide 19 mmol/L (22-30); Chloride 105 mmol/L (98-107); Glucose 109 mg/dL (74-99); Non-African American GFR(CKD) >90 (>60 ml/min/1.73 sqM); Potassium 3.5 mmol/L (3.5-5.1); Sodium 134 mmol/L (137-145)
[2023-08-17] MEDS ORDERED: LOPERAMIDE 2 MG CAP PO PRN (18:06)
[2023-08-18] MEDS: SODIUM CHLORIDE 0.9% 1,000 ML IV SCH ×2 (02:41→11:34)
[2023-08-18 07:45] LABS: HCT 35.9 % (34.0-46.0); HGB 12.2 gm/dL (11.4-16.0); MCH 34.7 pg (25.0-35.0); Macrocytosis Slight; Mean Platelet Volume 8.6; Platelet Count 100 k/uL (150-450); RBC 3.52 m/uL (3.80-5.40); RDW 13.6 % (11.5-15.5); WBC 5.8 k/uL (3.8-10.6)
[2023-08-18 07:56] LABS: African American GFR (CKD) >90 (>60 ml/min/1.73 sqM); Anion Gap 11 mmol/L; Blood Urea Nitrogen 5 mg/dL (7-17); Calcium 8.5 mg/dL (8.4-10.2); Carbon Dioxide 19 mmol/L (22-30); Chloride 106 mmol/L (98-107); Glucose 92 mg/dL (74-99); Non-African American GFR(CKD) >90 (>60 ml/min/1.73 sqM); Potassium 2.9 mmol/L (3.5-5.1); Sodium 136 mmol/L (137-145)
[2023-08-18] MEDS: FAMOTIDINE 20 MG TAB PO SCH ×2 (08:52→20:03)
[2023-08-18] MEDS: ENOXAPARIN 40 MG/0.4 ML SYRINGE SQ SCH (08:52)
[2023-08-18] MEDS: THIAMINE 100 MG/ML 2 ML VIAL IM SCH (08:53)
[2023-08-18] MEDS ORDERED: POTASSIUM CHLORIDE ER 20 MEQ TAB.ER PO STA (09:02)
[2023-08-18] MEDS: POTASSIUM CHLORIDE 10 MEQ in WATER FOR INJECTION 1 100ML.BAG IVPB SCH ×4 (09:57→16:20)
--- NOTE | 2023-08-18 12:18 | P.PN ---
Subjective Progress Note Date: 08/18/23 No new complaints today. Eating with good appetite. UTI is better controlled. K is low again despite replacement yesterday. Gen: awake, alert HEENT: normocephalic, atraumatic, good hearing acuity, moist mucous membranes Resp: good air exchange, breathing comfortably with no accessory muscle use CVS: good distal perfusion x 4, GI: soft, NTTP, ND : no SPT, no CVAT, medrano catheter not present MSK: no pitting edema, no clubbing Neuro: non-focal, moving all extremities Psych: cooperative, euthymic mood Hospital course: Patient is a 63-year-old female with known alcohol dependency, chronic back pa in, alcoholic hepatitis, alcoholic myopathy, and prior UTIs who presented to the emergency department with complaints of inability to ambulate and weakness. In the emergency department she underwent an extensive evaluation. Initial vitals were remarkable for a pulse of 107. Initial laboratory analysis was remarkable for white blood cell count 13.6, platelets 142, lactic acid 2.5, magnesium 1.1, total bilirubin 1.9, AST 75, a healthy 46. Her serum alcohol was negative. Pelvic, chest x-ray, and CT had all showed no acute process. His son have a probable urinary tract infection. She was started on Rocephin and IV fluids. Arrangements are made for admission. Assessment/Plan: Gram negative bacilli UTI with sepsis, present on admission ETOH dependency with withdrawal Hyponatremia Hypokalemia Generalized weakness Thromboctyopenia, transaminitis due to ETOH -Continue with Rocephin 2 g IV piggyback every 24 hours D # 3/5, await urine culture, DEcrease normal saline to 75 cc/hr -Potassium 40 mEq by mouth 1, potassium chloride 40 mEq IV piggyback 1, repeat potassium at 1500 - this will be repeated again today 08/18 -Continue oral Ativan dosing according to CIWA scale. Monitor patient closely for signs of sedation. Librium 20 mg by mouth 3 times daily -PT/OT recs - discussed with them today - patient would qualify for rehab, but refusing at this time. -B12 level normal. thiamine 100 g IM daily - repeat CBC in AM to monitor infection, repeat CMP in AM to monitor liver enzymes. Diarrhea - C diff reviewed, negative - imodium PRN Resolved: Hypomagnesemia, Anion gap metabolic acidosis, Lactic acidosis Imaging: None new Data Review: Labs reviewed from today include CBC and complete metabolic profile which are remarkable for platelets of 104, sodium 133, potassium 2.3, AST 51, ALT 35 Urine culture with gram-negative bacilli Blood culture negative 24 hours DVT prophylaxis: Lovenox Anticipated discharge date: Pending Clinical Course Anticipated discharge place: Pending Clinical Course This dictation was prepared using [employer] voice recognition software. Though every attempt is made to correct errors during dictation some may still exist. Objective - Vital Signs Vital signs: Vital Signs Temp 99.2 F 08/18/23 07:00 Pulse 78 08/18/23 07:00 Resp 17 08/18/23 07:00 BP 135/77 08/18/23 07:00 Pulse Ox 96 08/18/23 07:00 FiO2 Intake & Output 08/17/23 08/18/23 08/18/23 18:59 06:59 18:59 Intake Total 120 240 Balance 120 240 Intake: Oral 120 240 Other: Voiding Method Diaper Diaper Diaper Incontinent Incontinent Incontinent # Voids 1 # Bowel Movements 2 1 - Labs CBC & Chem 7: 08/18/23 07:23 08/18/23 07:23 Labs: Abnormal Lab Results - Last 24 Hours (Table) 08/17/23 08/18/23 08/18/23 Range/Units 15:08 07:23 07:23 RBC 3.52 L (3.80-5.40) m/uL MCV 102.0 H (80.0-100.0) fL Plt Count 100 L (150-450) k/uL Sodium 134 L 136 L (137-145) mmol/L Potassium 2.9 L (3.5-5.1) mmol/L Carbon Dioxide 19 L 19 L (22-30) mmol/L BUN 5 L (7-17) mg/dL Creatinine 0.33 L 0.28 L (0.52-1.04) mg/dL Glucose 109 H (74-99) mg/dL Calcium 8.2 L (8.4-10.2) mg/dL Microbiology - Last 24 Hours (Table) 08/16/23 01:43 Urine Culture - Preliminary Urine,Voided Gram Neg Bacilli 08/15/23 23:17 Blood Culture - Preliminary Blood 08/15/23 23:32 Blood Culture - Preliminary Blood
[2023-08-19 02:13] LABS: Blood Urea Nitrogen 5.8 mg/dL (9.0-27.0); Calcium 9.1 mg/dL (8.7-10.3); Chloride 103 mmol/L (96-109); Glucose 76 mg/dL (70-110); Magnesium 1.3 mg/dL (1.5-2.4); Potassium 4.1 mmol/L (3.5-5.5); Sodium 139 mmol/L (135-145)
[2023-08-19] MEDS: SODIUM CHLORIDE 0.9% 1,000 ML IV SCH (03:21)
[2023-08-19] MEDS ORDERED: ZINC OXIDE PASTE (Z-GUARD) 1 APPLIC APPLIC TOPICAL PRN (09:07)
[2023-08-19] MEDS: THIAMINE 100 MG/ML 2 ML VIAL IM SCH (09:32)
[2023-08-19] MEDS: ENOXAPARIN 40 MG/0.4 ML SYRINGE SQ SCH (09:32)
[2023-08-19] MEDS: FAMOTIDINE 20 MG TAB PO SCH (09:32)
[2023-08-19 09:52] LABS: BUN/Creat Ratio 21.33 Ratio (12.00-20.00); Blood Urea Nitrogen 6.4 mg/dL (9.0-27.0); Calcium 8.9 mg/dL (8.7-10.3); Chloride 105 mmol/L (96-109); Glucose 96 mg/dL (70-110); Magnesium 1.4 mg/dL (1.5-2.4); Potassium 4.3 mmol/L (3.5-5.5); Sodium 137 mmol/L (135-145)
[2023-08-19 14:39] VITALS: BP 139/89; PULSE 79; RESP 18; TEMP 98.7
--- NOTE | 2023-08-19 16:52 | P.DS ---
Providers Date of admission: 08/15/23 23:24 Expected date of discharge: 08/19/23 Attending physician: Cecilia Cabello MD Primary care physician: Stated None Hospital Course: Gram negative bacilli UTI with sepsis, present on admission ETOH dependency with withdrawal Hyponatremia Hypokalemia Generalized weakness Thromboctyopenia, transaminitis due to ETOH Diarrhea Gen: awake, alert HEENT: normocephalic, atraumatic, good hearing acuity, moist mucous membranes Resp: good air exchange, breathing comfortably with no accessory muscle use CVS: good distal perfusion x 4, GI: soft, NTTP, ND : no SPT, no CVAT, medrano catheter not present MSK: no pitting edema, no clubbing Neuro: non-focal, moving all extremities Psych: cooperative, euthymic mood Hospital course: Patient is a 63-year-old female with known alcohol dependency, chronic back pain, alcoholic hepatitis, alcoholic myopathy, and prior UTIs who presented to the emergency department with complaints of inability to ambulate and weakness. In the emergency department she underwent an extensive evaluation. Initial vitals were remarkable for a pulse of 107. Initial laboratory analysis was remarkable for white blood cell count 13.6, platelets 142, lactic acid 2.5, magnesium 1.1, total bilirubin 1.9, AST 75, a healthy 46. Her serum alcohol was negative. Pelvic, chest x-ray, and CT had all showed no acute process. His son have a probable urinary tract infection. She was started on Rocephin and IV fluids. Arrangements are made for admission. Pt was treated with ceftriaxone for UTI and improved by day 4. Withdrawal remained under control with librium. K was repleted to normal - 4.3. Pt discharged with 2 additional days of abx in the form of cefdinir. Pt will f/u with PCP. I spent 34 minutes coordinating this discharge on 08/19 Patient Condition at Discharge: Good Plan - Discharge Summary Discharge Rx Participant: Yes New Discharge Prescriptions: New Cefdinir 300 mg PO Q12HR 2 Days #4 cap Folic Acid 1 mg PO DAILY #30 tablet Acetaminophen Tab [Tylenol] 650 mg PO Q6HR PRN tab PRN Reason: Mild Pain Or Fever > 100.5 Thiamine [Vitamin B-1] 100 mg PO DAILY #30 tablet Discharge Medication List Acetaminophen Tab [Tylenol] 650 mg PO Q6HR PRN tab 08/19/23 [Rx] Cefdinir 300 mg PO Q12HR 2 Days #4 cap 08/19/23 [Rx] Folic Acid 1 mg PO DAILY #30 tablet 08/19/23 [Rx] Thiamine [Vitamin B-1] 100 mg PO DAILY #30 tablet 08/19/23 [Rx] Follow up Appointment(s)/Referral(s): None,Stated [Primary Care Provider] - 1-2 days (patient instructed to make follow-up appointment with a primary care physician) Patient Instructions/Handouts: Thiamine (By mouth), Folic Acid (By mouth), Cefdinir (By mouth), Abuse of Alcohol (DC) Discharge/Stand Alone Forms: AA Meetings [place], Who Do I Call?, Community Resources, Outpatient Counseling, Inp Substance Abuse Facilities, Area PCPs Discharge Disposition: HOME SELF-CARE
== END 2023-08-19 15:56 | disposition home or self-care (01) | DRG 872 ==
LOC: EC 19:28 → 6NMEDSUR 23:24 → 5NMEDONC 08-16 04:49
PROVIDERS: ADMIT Internal Medicine; ATTEND Internal Medicine
DX: A41.50 Gram-negative sepsis, unspecified (principal); G72.1 Alcoholic myopathy; E87.20 Acidosis, unspecified; E87.1 Hypo-osmolality and hyponatremia; N39.0 Urinary tract infection, site not specified; F10.239 Alcohol dependence with withdrawal, unspecified; D69.6 Thrombocytopenia, unspecified; R62.7 Adult failure to thrive; K70.10 Alcoholic hepatitis without ascites; I10 Essential (primary) hypertension; F41.9 Anxiety disorder, unspecified; G89.29 Other chronic pain; M25.512 Pain in left shoulder; M54.2 Cervicalgia; M54.50 Low back pain, unspecified; D75.89 Other specified diseases of blood and blood-forming organs; E83.42 Hypomagnesemia; E87.6 Hypokalemia; R26.9 Unspecified abnormalities of gait and mobility; M19.90 Unspecified osteoarthritis, unspecified site; R32 Unspecified urinary incontinence; R19.7 Diarrhea, unspecified; Y90.0 Blood alcohol level of less than 20 mg/100 ml; F17.210 Nicotine dependence, cigarettes, uncomplicated; Z71.6 Tobacco abuse counseling; Z87.440 Personal history of urinary (tract) infections; Z88.2 Allergy status to sulfonamides; Z88.8 Allergy status to other drugs, medicaments and biological substances; Z91.041 Radiographic dye allergy status; W01.0XXA Fall on same level from slipping, tripping and stumbling without subsequent striking against object, initial encounter; Y92.009 Unspecified place in unspecified non-institutional (private) residence as the place of occurrence of the external cause
CPT/HCPCS: 36415; 70450; 71045; 72170; 80048; 80053; 80306; 80320; 81001; 82550; 82607; 82747; 83605; 83735; 85025; 85027; 87040; 87077; 87086; 87186; 87324; 96361; 96365; 96366; 96367; 96368; 96372; 96375; 99291

== ENCOUNTER 2023-08-30 18:02 | Observation (INO) | payer BC, OTHER ==
[2023-08-30] MEDS ORDERED: SODIUM CHLORIDE 0.9% 1,000 ML IV STA ×2 (19:00)
--- NOTE | 2023-08-30 19:01 | ED ---
Alcohol HPI - General Chief Complaint: Skin/Abscess/Foreign Body Stated Complaint: ETOH Time Seen by Provider: 08/30/23 18:41 Source: patient, EMS, RN notes reviewed, old records reviewed Mode of arrival: EMS Limitations: no limitations - History of Present Illness Initial Comments: This is a 61-year-old female DF for evaluation of severe altered mental status alcohol intoxication history of alcohol disease. Patient has long history of alcoholism with visits the ER usually for falls per patient has not been feeling well and comes in for altered mental status today. MD Complaint: alcohol intoxication Last Drink: just [employer] -: minute(s) Previous Visits for Alcohol Intoxication?: Yes Recent Trauma: Yes Treatments Prior to Arrival: none Chronic Alcohol Use: Yes - Related Data Home Medications Medication Instructions Recorded Confirmed Calcium(Unknown Dose) 1 tab PO DAILY 08/30/23 08/30/23 Vitamin B Complex 1 cap PO DAILY 08/30/23 08/30/23 Vitamin C(Unknown Dose) 1 tab PO DAILY 08/30/23 08/30/23 Vitamin D3(Unknown Dose) 1 tab PO DAILY 08/30/23 08/30/23 Previous Rx's Medication Instructions Recorded Magnesium Oxide [Mag-Ox] 400 mg PO DAILY 90 Days #90 tablet 09/02/23 Allergies Allergy/AdvReac Type Severity Reaction Status Date / Time shellfish derived [Shellfish] Allergy Severe Dyspnea Verified 08/30/23 21:43 iodine Allergy Rash/Hives Verified 08/30/23 21:43 Sulfa (Sulfonamide Allergy Rash/Hives Verified 08/30/23 21:43 Antibiotics) Review of Systems ROS Statement: Those systems with pertinent positive or pertinent negative responses have been documented in the HPI. ROS Other: All systems not noted in ROS Statement are negative. Past Medical History Past Medical History: Hypertension, Osteoarthritis (OA) Additional Past Medical History / Comment(s): Fall September 2019 with neck injury/L arm weak/decreased sensation and weakness to L leg-sent to [facility] and had cervical surgery, chronic cervical/L shoulder pain since surgery, chronic low back pain for years, ETOH abuse-pt states she has had withdrawa ls/shaking/weakness/nausea/one seizure long ago, alcoholic hepatitis, 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 History of Any Multi-Drug Resistant Organisms: None Reported Past Surgical History: Back Surgery Additional Past Surgical History / Comment(s): Cervical surgery at [facility] d/t injury, colonoscopies/benign polypectomy Past Anesthesia/Blood Transfusion Reactions: No Reported Reaction, Motion Sick ness Additional Past Anesthesia/Blood Transfusion Reaction / Comment(s): PT has clausterphobia. Past Psychological History: Anxiety Smoking Status: Current some day smoker Past Alcohol Use History: Abuse, Daily Past Drug Use History: None Reported - Past Family History Mother Family Medical History: Cancer Additional Family Medical History / Comment(s): Mother of melanoma Father Family Medical History: No Reported History Additional Family Medical History / Comment(s): Father is healthy General Exam Limitations: no limitations General appearance: alert, in no apparent distress, anxious Head exam: Present: atraumatic, normocephalic, normal inspection Eye exam: Present: normal appearance, PERRL, EOMI. Absent: scleral icterus, conjunctival injection, periorbital swelling ENT exam: Present: normal exam, mucous membranes moist Neck exam: Present: normal inspection. Absent: tenderness, meningismus, lymphadenopathy Respiratory exam: Present: normal lung sounds bilaterally. Absent: respiratory distress, wheezes, rales, rhonchi, stridor Cardiovascular Exam: Present: regular rate, normal rhythm, normal heart sounds. Absent: systolic murmur, diastolic murmur, rubs, gallop, clicks GI/Abdominal exam: Present: soft, normal bowel sounds. Absent: distended, tenderness, guarding, rebound, rigid Extremities exam: Present: normal inspection, full ROM, normal capillary refill. Absent: tenderness, pedal edema, joint swelling, calf tenderness Back exam: Present: normal inspection Neurological exam: Present: alert, oriented X3, CN II-XII intact Psychiatric exam: Present: normal affect, normal mood Skin exam: Present: warm, dry, intact, normal color. Absent: rash Course Vital Signs 08/30/23 08/30/23 08/30/23 18:13 21:19 22:17 Temperature 98.0 F 97.5 F L Pulse Rate 66 68 Pulse Rate [ 74 Pulse Oximetery ] Respiratory 18 18 18 Rate Blood Pressure 109/92 113/75 Blood Pressure 122/69 [Right Arm] O2 Sat by Pulse 99 99 99 Oximetry - Reevaluation(s) Reevaluation #1: 08/30/23 21:03 Record is reviewed Reevaluation #2: 08/30/23 21:03 Patient has no change in symptoms here in the ER Reevaluation #3: 08/30/23 21:03 Patient informed results and questions answered Reevaluation #4: 08/30/23 21:03 Was pt. sent in by a medical professional or institution (EDITH Bolton, QUALITY SYSTEM MANAGER, urgent care, hospital, or prison...) When possible be specific @ -no Did you speak to anyone other than the patient for history (EMS, parent, family, police, friend...)? What history was obtained from this source @ -no Did you review nursing and triage notes (agree or disagree)? Why? @ -agree Are old charts reviewed (outside hosp., previous admission, EMS record, old EKG, old radiological studies, urgent care reports/EKG's, prison records)? Report findings @ -yes Differential Diagnosis (chest pain, altered mental status, abdominal pain women, abdominal pain men, vaginal bleeding, weakness, fever, dyspnea, syncope, headache, dizziness, GI bleed, back pain, seizure, CVA, palpatations, mental health, musculoskeletal)? @ -prior EKG interpreted by me (3pts min.). @ -no X-rays interpreted by me (1pt min.). @ -no CT interpreted by me (1pt min.). @ -no U/S interpreted by me (1pt. min.). @ -no What testing was considered but not performed or refused? (CT, X-rays, U/S, labs)? Why? @ -none What meds were considered but not given or refused? Why? @ -none Did you discuss the management of the patient with other professionals (professionals i.e. EDITH Bolton, QUALITY SYSTEM MANAGER, lab, RT, psych nurse, social insurance adviser, varnish dipper, teacher, police officer, casework manager)? Give summary @ -no Was smoking cessation discussed for >3mins.? @ -no Was critical care preformed (if so, how long)? @ -no Were there social determinants of health that impacted care today? How? (Home lessness, low income, unemployed, alcoholism, drug addiction, transportation, low edu. Level, literacy, decrease access to med. care, half-way, rehab)? @ -none Was there de-escalation of care discussed even if they declined (Discuss DNR or withdrawal of care, Hospice)? DNR status @ -no What co-morbidities impacted this encounter? (DM, HTN, Smoking, COPD, CAD, Cancer, CVA, ARF, Chemo, Hep., AIDS, mental health diagnosis, sleep apnea, morbid obesity)? @ -none Was patient admitted / discharged? Hospital course, mention meds given and route, prescriptions, significant lab abnormalities, going to OR and other pertinent info. @ - 63 female will be admitted for severe alcohol intoxication, persistent alcohol intoxication with concern for impending delirium tremens Admitted Undiagnosed new problem with uncertain prognosis? @ -no Drug Therapy requiring intensive monitoring for toxicity (Heparin, Nitro, Insulin, Cardizem)? @ -no Were any procedures done? @ -no Diagnosis/symptom? @ -Alcohol intoxication Acute, or Chronic, or Acute on Chronic? @ -Acute Uncomplicated (without systemic symptoms) or Complicated (systemic symptoms)? @ -Complicated Side effects of treatment? @ -no Exacerbation, Progression, or Severe Exacerbation? @ -exacerbation Poses a threat to life or bodily function? How? (Chest pain, USA, LA, pneumonia, PE, COPD, DKA, ARF, appy, cholecystitis, CVA, Diverticulitis, Homicidal, Suicidal, threat to staff... and all critical care pts) @ -yes with significant possibility of DTs - Consultations Consultation #1: Spoke with sound who will admit this patient Medical Decision Making - Medical Decision Making 63 female will be admitted for severe alcohol intoxication, persistent alcohol intoxication with concern for impending delirium tremens - Lab Data Result diagrams: 09/02/23 06:58 09/02/23 06:58 Lab Results 08/30/23 08/30/23 Range/Units 20:00 20:00 WBC 8.3 (3.8-10.6) k/uL RBC 4.44 (3.80-5.40) m/uL Hgb 15.0 (11.4-16.0) gm/dL Hct 45.5 (34.0-46.0) % MCV 102.4 H (80.0-100.0) fL MCH 33.7 (25.0-35.0) pg MCHC 32.9 (31.0-37.0) g/dL RDW 13.6 (11.5-15.5) % Plt Count 389 D (150-450) k/uL MPV 7.2 Neutrophils % 50 % Lymphocytes % 39 % Monocytes % 2 % Eosinophils % 6 % Basophils % 2 % Neutrophils # 4.1 (1.3-7.7) k/uL Lymphocytes # 3.2 (1.0-4.8) k/uL Monocytes # 0.2 (0-1.0) k/uL Eosinophils # 0.5 (0-0.7) k/uL Basophils # 0.1 (0-0.2) k/uL Macrocytosis Slight Sodium 146 H (137-145) mmol/L Potassium 4.0 (3.5-5.1) mmol/L Chloride 107 (98-107) mmol/L Carbon Dioxide 25 (22-30) mmol/L Anion Gap 14 mmol/L BUN 4 L (7-17) mg/dL Creatinine 0.40 L (0.52-1.04) mg/dL Est GFR (CKD-EPI)AfAm >90 (>60 ml/min/1.73 sqM) Est GFR (CKD-EPI)NonAf >90 (>60 ml/min/1.73 sqM) Glucose 85 (74-99) mg/dL Calcium 8.6 (8.4-10.2) mg/dL Phosphorus 3.6 (2.5-4.5) mg/dL Magnesium 1.6 (1.6-2.3) mg/dL Total Bilirubin 0.5 (0.2-1.3) mg/dL AST 61 H (14-36) U/L ALT 47 H (4-34) U/L Alkaline Phosphatase 84 (38-126) U/L Total Protein 6.8 (6.3-8.2) g/dL Albumin 3.9 (3.5-5.0) g/dL Lipase 37 (23-300) U/L Serum Alcohol 409 H* mg/dL Disposition Clinical Impression: Weakness, Alcohol intoxication, Alcohol withdrawal Disposition: ADMITTED IP TO THIS HOSP Condition: Fair Is patient prescribed a controlled substance at d/c from ED?: No Time of Disposition: 21:00
[2023-08-30 20:11] LABS: Basophils # (A) 0.1 k/uL (0-0.2); Basophils % (A) 2 %; Eosinophils # (A) 0.5 k/uL (0-0.7); Eosinophils % (A) 6 %; HCT 45.5 % (34.0-46.0); Lymphocytes # (A) 3.2 k/uL (1.0-4.8); Lymphocytes % (A) 39 %; MCH 33.7 pg (25.0-35.0); MCHC 32.9 g/dL (31.0-37.0); MCV 102.4 fL (80.0-100.0); Macrocytosis Slight; Mean Platelet Volume 7.2; Monocytes # (A) 0.2 k/uL (0-1.0); Monocytes % (A) 2 %; Neutrophils # (A) 4.1 k/uL (1.3-7.7); Neutrophils % (A) 50 %; RBC 4.44 m/uL (3.80-5.40); RDW 13.6 % (11.5-15.5); WBC 8.3 k/uL (3.8-10.6)
[2023-08-30 20:21] LABS: ALT 47 U/L (4-34); AST 61 U/L (14-36); African American GFR (CKD) >90 (>60 ml/min/1.73 sqM); Albumin 3.9 g/dL (3.5-5.0); Alkaline Phosphatase 84 U/L (38-126); Anion Gap 14 mmol/L; Blood Urea Nitrogen 4 mg/dL (7-17); Calcium 8.6 mg/dL (8.4-10.2); Carbon Dioxide 25 mmol/L (22-30); Chloride 107 mmol/L (98-107); Glucose 85 mg/dL (74-99); Lipase 37 U/L (23-300); Magnesium 1.6 mg/dL (1.6-2.3); Non-African American GFR(CKD) >90 (>60 ml/min/1.73 sqM); Phosphorus 3.6 mg/dL (2.5-4.5); Sodium 146 mmol/L (137-145); Total Bilirubin 0.5 mg/dL (0.2-1.3); Total Protein 6.8 g/dL (6.3-8.2)
[2023-08-30 20:22] LABS: Platelet Count 389 k/uL (150-450)
[2023-08-30 20:41] LABS: Alcohol 409 mg/dL
[2023-08-30] MEDS ORDERED: THIAMINE 100 MG/ML 2 ML VIAL IM STA (21:01)
[2023-08-30] MEDS ORDERED: LORazepam 2 MG/ML INJ IV PRN ×2 (21:01)
[2023-08-30] MEDS ORDERED: NALOXONE 0.4 MG/ML 1 ML VIAL IV PRN (21:01)
[2023-08-30] MEDS ORDERED: ONDANSETRON 4 MG/2 ML VIAL IVP PRN (21:01)
[2023-08-30] MEDS: SODIUM CHLORIDE 0.9% 1,000 ML IV SCH (21:15)
[2023-08-30] MEDS ORDERED: MELATONIN 5 MG TABLET PO PRN (21:43)
--- NOTE | 2023-08-31 01:30 | P.HPIM ---
History of Present Illness H&P Date: 08/30/23 Patient is a 63-year-old female with a PMH of alcohol abuse who presents to the emergency room with complaints of sores all over her body and with alcohol intoxication. The patient notes that she only drinks "a few beers a day" although is well-known to us with a history of multiple hospitalizations for alcoholic patient most recently on 08/15. Patient complained of a multiple areas of rash with crusting lesions involving her bilateral arms, hips, and abdomen. She does report picking at the rash chronically. Also reports chronic generalized weakness. Denies chest discomfort, shortness of breath, fever, chills, cough, nausea, vomiting, abdominal pain, diarrhea Laboratory evaluation revealed macrocytosis of 102.4, serum alcohol level 409, AST 61, and ALT 47. ED documentation reviewed and case discussed with ED provider. Review of systems: Pertinent positives and negatives as discussed in HPI, a complete review of systems was performed and all other systems are negative. Physical examination: Vital signs reviewed General: non toxic, no distress, appears older than stated age, normal weight Derm: Areas of erythematous and encrusting lesions involving forearms and thighs , warm Head: atraumatic, normocephalic, symmetric Eyes: EOMI, no lid lag, anicteric sclera, pupils equal round reactive to light ENT: Nose and ears atraumatic Neck: No cervical lymphadenopathy, trachea midline, supple Mouth: no lip lesion, mucus membranes moist Cardiovascular: S1S2 reg, no murmur, positive dorsalis pedis pulse bilateral, no edema Lungs: CTA bilateral, no rhonchi, no rales, no accessory muscle use Abdominal: soft, nontender to palpation, no guarding Ext: muscle strength 4 out of 5 in all 4 extremities grossly, no gross muscle atrophy, no contractures, Neuro: CN II-XI grossly intact, no gross focal neuro deficits Psych: Alert, oriented, appropriate affect Assessment: Alcohol abuse, impending withdrawal Rash, suspicious for patient picking at skin Transaminitis, likely due to ongoing alcohol abuse Macrocytosis, B12 and folate levels previously WNL Imaging: None performed Data Review: Laboratory evaluation revealed macrocytosis of 102.4, serum alcohol level 409, AST 61, and ALT 47 Plan: CIWA protocol with Ativan Continue thiamine and folic acid IV fluids with normal saline 100 mL/h Fall precautions Cardiac monitoring Monitor electrolytes DVT prophylaxis: Lovenox Subq The patient is admitted with an anticipated less than 2 midnight stay for evaluation of alcohol abuse CODE STATUS: Full Code Discussed with: Patient Anticipated discharge place: Home Past Medical History Past Medical History: Hypertension, Osteoarthritis (OA) Additional Past Medical History / Comment(s): Fall September 2019 with neck injury/L arm weak/decreased sensation and weakness to L leg-sent to [facility] and had cervical surgery, chronic cervical/L shoulder pain since surgery, chronic low back pain for years, ETOH abuse-pt states she has had withdrawals/shaking/weakness/nausea/one seizure long ago, alcoholic hepatitis, 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 History of Any Multi-Drug Resistant Organisms: None Reported Past Surgical History: Back Surgery Additional Past Surgical History / Comment(s): Cervical surgery at [facility] d/t injury, colonoscopies/benign polypectomy Past Anesthesia/Blood Transfusion Reactions: Motion Sickness Additional Past Anesthesia/Blood Transfusion Reaction / Comment(s): PT has clausterphobia. Past Psychological History: Anxiety Additional Psychological History / Comment(s): Pt resides with her spouse. Smoking Status: Current some day smoker Past Alcohol Use History: Abuse, Daily Additional Past Alcohol Use History / Comment(s): Pt started smoking in 1997 and a pack will last 4 days. Pt drinks on average a pint of whiskey per day-she has quit several times and once quit for 5 yrs. Past Drug Use History: None Reported - Past Family History Mother Family Medical History: Cancer Additional Family Medical History / Comment(s): Mother of melanoma Father Family Medical History: No Reported History Additional Family Medical History / Comment(s): Father is healthy Medications and Allergies Home Medications Medication Instructions Recorded Confirmed Type Calcium(Unknown Dose) 1 tab PO DAILY 08/30/23 08/30/23 History Vitamin B Complex 1 cap PO DAILY 08/30/23 08/30/23 History Vitamin C(Unknown Dose) 1 tab PO DAILY 08/30/23 08/30/23 History Vitamin D3(Unknown Dose) 1 tab PO DAILY 08/30/23 08/30/23 History Allergies Allergy/AdvReac Type Severity Reaction Status Date / Time shellfish derived [Shellfish] Allergy Severe Dyspnea Verified 08/30/23 21:43 iodine Allergy Rash/Hives Verified 08/30/23 21:43 Sulfa (Sulfonamide Allergy Rash/Hives Verified 08/30/23 21:43 Antibiotics) Physical Exam Vitals: Vital Signs Temp Pulse Pulse Resp BP BP Pulse Ox 08/30/23 22:17 97.5 F L 74 18 122/69 99 08/30/23 21:19 68 18 113/75 99 08/30/23 18:13 98.0 F 66 18 109/92 99 Intake and Output 08/30/23 08/30/23 08/31/23 14:59 22:59 06:59 Other: Weight 72.575 kg Results CBC & Chem 7: 08/30/23 20:00 08/30/23 20:00 Labs: Abnormal Lab Results - Last 24 Hours (Table) 08/30/23 08/30/23 Range/Units 20:00 20:00 MCV 102.4 H (80.0-100.0) fL Sodium 146 H (137-145) mmol/L BUN 4 L (7-17) mg/dL Creatinine 0.40 L (0.52-1.04) mg/dL AST 61 H (14-36) U/L ALT 47 H (4-34) U/L Serum Alcohol 409 H* mg/dL Thrombosis Risk Factor Assmnt - Choose All That Apply Any of the Below Risk Factors Present?: Yes Other Risk Factors: Yes Each Risk Factor Represents 2 Points: Age 61-74 years Thrombosis Risk Factor Assessment Total Risk Factor Score: 2 Thrombosis Risk Factor Assessment Level: Low Risk
[2023-08-31] MEDS: SODIUM CHLORIDE 0.9% 1,000 ML IV SCH ×2 (04:47→16:35)
[2023-08-31 06:58] LABS: Basophils # (A) 0.1 k/uL (0-0.2); Basophils % (A) 1 %; Eosinophils # (A) 0.4 k/uL (0-0.7); Eosinophils % (A) 7 %; HCT 40.2 % (34.0-46.0); HGB 13.3 gm/dL (11.4-16.0); Lymphocytes % (A) 19 %; MCH 34.2 pg (25.0-35.0); MCHC 33.1 g/dL (31.0-37.0); MCV 103.3 fL (80.0-100.0); Macrocytosis Slight; Mean Platelet Volume 7.4; Monocytes # (A) 0.2 k/uL (0-1.0); Monocytes % (A) 3 %; Neutrophils # (A) 3.7 k/uL (1.3-7.7); Neutrophils % (A) 68 %; Platelet Count 290 k/uL (150-450); RBC 3.89 m/uL (3.80-5.40); RDW 13.7 % (11.5-15.5); WBC 5.4 k/uL (3.8-10.6)
[2023-08-31 07:58] LABS: ALT 39 U/L (4-34); AST 50 U/L (14-36); African American GFR (CKD) >90 (>60 ml/min/1.73 sqM); Albumin 3.1 g/dL (3.5-5.0); Alkaline Phosphatase 78 U/L (38-126); Anion Gap 15 mmol/L; Blood Urea Nitrogen 5 mg/dL (7-17); Calcium 8.1 mg/dL (8.4-10.2); Carbon Dioxide 18 mmol/L (22-30); Chloride 108 mmol/L (98-107); Glucose 86 mg/dL (74-99); Lipase 35 U/L (23-300); Magnesium 1.3 mg/dL (1.6-2.3); Non-African American GFR(CKD) >90 (>60 ml/min/1.73 sqM); Phosphorus 4.1 mg/dL (2.5-4.5); Potassium 3.7 mmol/L (3.5-5.1); Sodium 141 mmol/L (137-145); Total Bilirubin 0.5 mg/dL (0.2-1.3); Total Protein 5.7 g/dL (6.3-8.2)
[2023-08-31] MEDS ORDERED: THIAMINE 100 MG TAB PO SCH (09:00)
[2023-08-31] MEDS ORDERED: FOLIC ACID-VIT B COMPLEX-VIT C 1 CAP PO SCH (09:00)
[2023-08-31] MEDS: HYDROCORTISONE 1% CREAM 454 GM JAR TOPICAL SCH ×3 (09:08→21:17)
[2023-08-31] MEDS: ZINC OXIDE PASTE (Z-GUARD) 1 APPLIC APPLIC TOPICAL SCH ×2 (09:08→21:18)
[2023-08-31] MEDS: MAGNESIUM SULFATE-D5W PMX 1 GM in DEXTROSE/WATER 1 100ML.BAG IVPB SCH ×3 (09:08→11:49)
[2023-08-31] MEDS: LORazepam 2 MG/ML INJ IV PRN ×2 (14:40→21:17)
--- NOTE | 2023-08-31 16:39 | P.PN ---
Subjective Progress Note Date: 08/31/23 (victor hugo charting seen at 0830) Patient is a 63-year-old female with hypertension, osteoarthritis, alcoholic hepatitis and alcoholic myopathy as well as ongoing alcohol use and multiple ot her comorbid conditions who presented to the ER due to complaints of a rash and gait disturbances. Patient was recently hospitalized from 08/15 through 08/19 where she was diagnosed with urinary tract infection, hypokalemia, hyponatremia, and generalized weakness. On discharge the patient was refusing fci facility. On arrival to the ER she underwent an extensive evaluation laboratory analysis was significant for sodium of 146 and serum alcohol of 409. Patient was unable to ambulate safely and was subsequently admitted. Patient seen and examined at bedside. He reports that she is itchy everywhere and is having a hard time dealing with that. She thinks it is due to dry skin. She reports that she is very weak at home and unable to perform her ADLs. We had a brynn discussion that she needs to go to fci facility as she was discharged 11 days prior to admission with the same. I explained to Her that this is likely related to her drinking and alcoholic myopathy. Patient does not feel that is related to alcoholism. I've told her that her only option at this point a fci facility as return to the hospital will not help increase her strength and endurance. Vital signs reviewed General: nontoxic, no distress, disheveled, malodorous, appears older than stated age During: Multiple excoriations with pinpoint areas of bleeding by lateral elbows and chest Cardiovascular: S1S2 reg, no murmur, positive posterior tibial pulse bilateral, Lungs: CTA bilateral, no rhonchi, no rales , no accessory muscle use Abdominal: soft, nontender to palpation, no guarding, no appreciable organomegaly Ext: no gross muscle atrophy, no edema b/l lower extremities, no contractures Neuro: CN II-XI grossly intact, no focal neuro deficits Psych: Alert, oriented, appropriate affect Assessment/Plan: Acute alcohol intoxication with impending alcohol withdrawal in a known alcoholic Transaminitissecondary to alcohol intoxication - Librium 20 mg PO TID, hold for sedation and monitor respiratory status closely - Ativan 1-2 mg as dictated by CIWA score -Thiamine 100 mg IM twice daily for possible [place] -Folic acid 1 mg daily -Multivitamin once daily -PT/OT evaluation -Case discussed with social services technician who will send out referral for possible fci facility Dermatitis bilateral elbows -Start hydrocortisone cream 3 times daily Hypomagnesemia -3 g magnesium -Recheck in a.m. Chronic: Hypertension, not currently on medications Chronic pain Alcoholic hepatitis Alcoholic myopathy History of prior urinary tract infections Imaging: None Data Review: Answered his they include CBC and CMP which are remarkable for chloride 108, carbon dioxide 18, magnesium 3, AST 50, and ALT 39 DVT prophylaxis: SCDS Anticipated discharge date: in AM Anticipated discharge place: SNF This dictation was prepared using [employer] voice recognition software. Though every attempt is made to correct errors during dictation some may still exist. Objective - Vital Signs Vital signs: Vital Signs Temp 98.9 F 08/31/23 14:32 Pulse 82 08/31/23 14:32 Resp 17 08/31/23 14:32 BP 152/78 08/31/23 14:32 Pulse Ox 95 08/31/23 14:32 FiO2 Intake & Output 08/30/23 08/31/23 08/31/23 18:59 06:59 18:59 Weight 72.575 kg 72.575 kg Other: Voiding Method Diaper Diaper Incontinent Incontinent # Voids 1 # Bowel Movements 1 - Labs CBC & Chem 7: 08/31/23 06:04 08/31/23 06:04 Labs: Abnormal Lab Results - Last 24 Hours (Table) 08/30/23 08/30/23 08/31/23 Range/Units 20:00 20:00 06:04 MCV 102.4 H 103.3 H (80.0-100.0) fL Sodium 146 H (137-145) mmol/L Chloride (98-107) mmol/L Carbon Dioxide (22-30) mmol/L BUN 4 L (7-17) mg/dL Creatinine 0.40 L (0.52-1.04) mg/dL Calcium (8.4-10.2) mg/dL Magnesium (1.6-2.3) mg/dL AST 61 H (14-36) U/L ALT 47 H (4-34) U/L Total Protein (6.3-8.2) g/dL Albumin (3.5-5.0) g/dL Serum Alcohol 409 H* mg/dL 08/31/23 Range/Units 06:04 MCV (80.0-100.0) fL Sodium (137-145) mmol/L Chloride 108 H (98-107) mmol/L Carbon Dioxide 18 L (22-30) mmol/L BUN 5 L (7-17) mg/dL Creatinine 0.38 L (0.52-1.04) mg/dL Calcium 8.1 L (8.4-10.2) mg/dL Magnesium 1.3 L (1.6-2.3) mg/dL AST 50 H (14-36) U/L ALT 39 H (4-34) U/L Total Protein 5.7 L (6.3-8.2) g/dL Albumin 3.1 L (3.5-5.0) g/dL Serum Alcohol mg/dL
[2023-09-01] MEDS: LORazepam 2 MG/ML INJ IV PRN ×4 (03:24→19:32)
[2023-09-01] MEDS: THIAMINE 100 MG/ML 2 ML VIAL IVP SCH (07:57)
[2023-09-01] MEDS: FOLIC ACID 1 MG TAB PO SCH (07:58)
[2023-09-01] MEDS: ZINC OXIDE PASTE (Z-GUARD) 1 APPLIC APPLIC TOPICAL SCH ×2 (07:58→21:45)
[2023-09-01] MEDS: HYDROCORTISONE 1% CREAM 454 GM JAR TOPICAL SCH ×3 (07:58→21:45)
[2023-09-01 08:44] LABS: HCT 40.3 % (37.2-46.3); HGB 13.6 g/dL (12.0-15.0); MCH 33.9 pg (27.0-32.0); MCHC 33.7 g/dL (32.0-37.0); MCV 100.5 FL (80.0-97.0); Mean Platelet Volume 9.8 FL (9.5-12.2); NRBC Per 100 WBC 0 X 10*3/uL (0.00-0.01); Platelet Count 221 X 10*3/uL (140-440); RBC 4.01 X 10*6/uL (4.10-5.20); RDW 13.2 % (11.5-14.5); WBC 9.21 X 10*3/uL (4.50-10.00)
[2023-09-01] MEDS ORDERED: NON FORMULARY DRUG (Vitamin B Complex [Vitamin B Complex] 1 EACH Capsule) PO SCH (09:00)
[2023-09-01 11:17] LABS: ALT 38 U/L (8-44); AST 33 U/L (13-35); Albumin 3.9 g/dL (3.8-4.9); Alkaline Phosphatase 89 U/L (41-126); BUN/Creat Ratio <8.75 Ratio (12.00-20.00); Blood Urea Nitrogen <3.5 mg/dL (9.0-27.0); Calcium 8.8 mg/dL (8.7-10.3); Chloride 102 mmol/L (96-109); Globulin 2.6 g/dL (1.6-3.3); Glucose 96 mg/dL (70-110); Potassium 3.6 mmol/L (3.5-5.5); Sodium 136 mmol/L (135-145); Total Protein 6.5 g/dL (6.2-8.2)
[2023-09-01] MEDS ORDERED: ACETAMINOPHEN TAB 325 MG TAB PO PRN (16:19)
--- NOTE | 2023-09-01 19:27 | P.PN ---
Subjective Progress Note Date: 09/01/23 Hospital course: Patient is a 63-year-old female with hypertension, osteoarthritis, alcoholic hepatitis and alcoholic myopathy as well as ongoing alcohol use and multiple other comorbid conditions. She presented to the emergency department on 08/30/23 due to complaints of a rash and gait disturbances. Patient was recently hospitalized from 08/15 through 08/19 where she was diagnosed with urinary tract infection, hypokalemia, hyponatremia, and generalized weakness. On discharge the patient was refusing prison facility. On arrival to the ER she underwent an extensive evaluation laboratory analysis was significant for sodium of 146 and serum alcohol of 409. Patient was unable to ambulate safely and was subsequently admitted for EtOH intoxication impending withdrawal. Physical exam: Vital signs reviewed General: nontoxic, no distress, disheveled, malodorous, appears older than stated age. During: Multiple excoriations with pinpoint areas of bleeding by lateral elbows and chest Cardiovascular: S1S2 reg, no murmur, positive posterior tibial pulse bilateral, Lungs: CTA bilateral, no rhonchi, no rales , no accessory muscle use Abdominal: soft, nontender to palpation, no guarding, no appreciable organomegaly Ext: no gross muscle atrophy, no edema b/l lower extremities, no contractures Neuro: CN II-XI grossly intact, no focal neuro deficits Psych: Alert, oriented, appropriate affect Assessment/Plan: Alcohol withdrawal in known long-standing alcoholic Initially present did with alcohol intoxication Transaminitissecondary to daily alcohol abuse -Continue monitoring of CIWA scores and patient to be medicated with Ativan 0.5 mg every 4 hours as needed for CIWA score of 4-5, Ativan 1 mg every 4 hours for CIWA score of 6-7, Ativan 2 mg every 3 hours CIWA score of 8-9, and Ativan 2 mg every 2 hours forr CIWA score of 10 or greater. -Thiamine 100 mg twice a day -Multivitamin daily -Folate 1 mg daily -Seizure, fall, aspiration, and elopement precautions in place. -Continued close monitoring of electrolytes and replace as needed. -Telemetry monitoring. - Librium 20 mg PO TID, hold for sedation and monitor respiratory status closely -PT/OT evaluation -Case discussed with health and social care teacher who will send out referral for possible prison facility Dermatitis bilateral elbows -Start hydrocortisone cream 3 times daily and Benadryl 25 mg by mouth every 6 hours as needed for itching. Hypomagnesemia -3 g magnesium was given for magnesium levels of 1.3. Order placed for repeat magnesium with a.m. labs. Chronic: Hypertension, not currently on medications Chronic pain Alcoholic hepatitis Alcoholic myopathy History of prior urinary tract infections Data Reviewed: Labs completed and reviewed. CBC showing no significant abnormalities showing mild macrocytosis with MCV of 100.5. BMP unremarkable. Liver profile normal findings. Vital signs reviewed. Blood pressure 159/88, heart rate 78, respiratory rate 20, temp 99.9F, SpO2 of 97% on room air. DVT prophylaxis: SCDS Anticipated discharge date: Within the next [address]: SNF Patient was seen independently by Nurse Pracitioner. This document was prepared using [employer] dictation software. Please allow for errors in yard inspector, while rare they do occur. I reviewed the documentation as provided by the CJ above, who is the original author of this note. I agree with the documented assessment and plan, with the following changes: none Objective - Vital Signs Vital signs: Vital Signs Temp 99.9 F H 09/01/23 07:32 Pulse 78 09/01/23 07:32 Resp 20 09/01/23 07:32 BP 159/88 09/01/23 07:32 Pulse Ox 97 09/01/23 07:32 FiO2 Intake & Output 08/31/23 09/01/23 09/01/23 18:59 06:59 18:59 Intake Total 200 600 Balance 200 600 Intake: Oral 200 600 Other: Voiding Method Diaper Diaper Incontinent Incontinent External Catheter # Voids 2 4 # Bowel Movements 3 - Labs CBC & Chem 7: 09/02/23 06:58 09/02/23 06:58 Labs: Abnormal Lab Results - Last 24 Hours (Table) 09/01/23 Range/Units 06:18 RBC 4.01 L (4.10-5.20) X 10*6/uL MCV 100.5 H (80.0-97.0) FL MCH 33.9 H (27.0-32.0) pg
[2023-09-01] MEDS: diphenhydrAMINE 25 MG CAP PO PRN (21:44)
[2023-09-02 08:23] VITALS: BP 128/68; PULSE 75; RESP 18; TEMP 98.3
[2023-09-02] MEDS: FOLIC ACID 1 MG TAB PO SCH (08:41)
[2023-09-02] MEDS: THIAMINE 100 MG/ML 2 ML VIAL IVP SCH (08:42)
[2023-09-02] MEDS: ZINC OXIDE PASTE (Z-GUARD) 1 APPLIC APPLIC TOPICAL SCH (08:43)
[2023-09-02] MEDS: HYDROCORTISONE 1% CREAM 454 GM JAR TOPICAL SCH (08:43)
[2023-09-02] MEDS: diphenhydrAMINE 25 MG CAP PO PRN (08:49)
--- NOTE | 2023-09-02 10:37 | P.DS ---
Providers Date of admission: 08/30/23 21:02 Expected date of discharge: 09/02/23 Attending physician: Cecilia Cabello MD Primary care physician: Stated None Hospital Course: Discharge Diagnosis: Alcohol withdrawal in known long-standing alcoholic. Patient refused rehab placement in nursing home facility or drug and alcohol rehabilitation Center. Initially present did with alcohol intoxication. Clinically sober. Transaminitis secondary to daily alcohol abuse. Patient strongly encouraged to refrain from any and all alcohol use. Dermatitis bilateral elbows. Start hydrocortisone cream 3 times daily and may use oral [id number] Benadryl 25 mg by mouth every 6 hours as needed for itching. Hypomagnesemia, replaced and patient was discharged home with Mag-Ox 400 mg daily. Hypertension, not currently on medications Chronic pain Alcoholic hepatitis Alcoholic myopathy History of prior urinary tract infections Hospital Course: Patient is a 63-year-old female with hypertension, osteoarthritis, alcoholic hepatitis and alcoholic myopathy as well as ongoing alcohol use and multiple other comorbid conditions. She presented to the emergency department on 08/30/23 due to complaints of a rash and gait disturbances. Patient was recently hospitalized from 08/15 through 08/19 where she was diagnosed with urinary tract infection, hypokalemia, hyponatremia, and generalized weakness. On discharge the patient was refusing nursing home facility. On arrival to the ER she underwent an extensive evaluation laboratory analysis was significant for sodium of 146 and serum alcohol of 409. Patient was unable to ambulate safely and was subsequently admitted for EtOH intoxication impending withdrawal. Patient was placed on alcohol withdrawal protocol. She was monitored over a tonight hospitalization. Discussed with patient recommendations for rehab. Patient adamantly refused and refusing with case management patient requesting discharge home. Medically, patient is stable at this time, she was strongly encouraged to refrain from any and all alcohol use. Patient provided with community resources available to her. Physical exam: Vital signs reviewed General: nontoxic, no distress, disheveled, malodorous, appears older than stated age. During: Multiple excoriations with pinpoint areas of bleeding by lateral elbows and chest Cardiovascular: S1S2 reg, no murmur, positive posterior tibial pulse bilateral, Lungs: CTA bilateral, no rhonchi, no rales , no accessory muscle use Abdominal: soft, nontender to palpation, no guarding, no appreciable organomegaly Ext: no gross muscle atrophy, no edema b/l lower extremities, no contractures Neuro: CN II-XI grossly intact, no focal neuro deficits Psych: Alert, oriented, appropriate affect A total of 32 minutes of time were spent preparing this complex discharge summary. Pt was discharged on 09/02/23 at 10:37 AM Patient was seen independently by Nurse Practitioner. This document was prepared using [employer] dictation software. Please allow for errors in truck rental service attendant while rare they do occur. I reviewed the documentation as provided by the CJ above, who is the original author of this note. I agree with the documented assessment and plan, with the following changes: none Patient Condition at Discharge: Stable Plan - Discharge Summary Discharge Rx Participant: Yes New Discharge Prescriptions: New Magnesium Oxide [Mag-Ox] 400 mg PO DAILY 90 Days #90 tablet Continue Vitamin C(Unknown Dose) 1 tab PO DAILY Vitamin B Complex 1 cap PO DAILY Vitamin D3(Unknown Dose) 1 tab PO DAILY Calcium(Unknown Dose) 1 tab PO DAILY Discharge Medication List Calcium(Unknown Dose) 1 tab PO DAILY 08/30/23 [History] Vitamin B Complex 1 cap PO DAILY 08/30/23 [History] Vitamin C(Unknown Dose) 1 tab PO DAILY 08/30/23 [History] Vitamin D3(Unknown Dose) 1 tab PO DAILY 08/30/23 [History] Magnesium Oxide [Mag-Ox] 400 mg PO DAILY 90 Days #90 tablet 09/02/23 [Rx] Follow up Appointment(s)/Referral(s): None,Stated [Primary Care Provider] - 1-2 days (please call to make a follow-up appointment for 1-2 days from discharge.) Patient Instructions/Handouts: Alcohol Intoxication (DC), Abuse of Alcohol (DC), At-Risk Alcohol Use (DC), Alcohol Withdrawal (DC) Activity/Diet/Wound Care/Special Instructions: Activity: As tolerated. Take breaks as needed. Diet: Heart healthy and carb consistent diet. Avoid salts, or foods with hidden salts such as canned or boxed foods and frozen dinners. Extra salt makes your heart work harder and traps the fluid in your body for longer. Special Instructions: You are being discharged home per your request despite recommendations for nursing home placement. Strongly advise avoidance of any and all alcohol use. Your morning labs have not resulted at time of the requested discharge. You are being sent home on magnesium supplements secondary to low magnesium levels when you arrived to our facility. Thank you for allowing us to participate in your care, it was truly a pleasure having you for our patient!!! Discharge/Stand Alone Forms: AA Meetings [address] - [facility], AA Meetings [facility], Who Do I Call?, Community Resources, Outpatient Counseling, In Substance Abuse Facilities Discharge Disposition: HOME SELF-CARE
[2023-09-02 11:02] LABS: HCT 38.9 % (37.2-46.3); HGB 13.3 g/dL (12.0-15.0); MCH 33.8 pg (27.0-32.0); MCHC 34.2 g/dL (32.0-37.0); Mean Platelet Volume 10.1 FL (9.5-12.2); NRBC Per 100 WBC 0 X 10*3/uL (0.00-0.01); Platelet Count 167 X 10*3/uL (140-440); RBC 3.93 X 10*6/uL (4.10-5.20); RDW 13.2 % (11.5-14.5); WBC 6.01 X 10*3/uL (4.50-10.00)
[2023-09-02 11:27] LABS: Magnesium 1.6 mg/dL (1.5-2.4)
[2023-09-02 11:28] LABS: ALT 29 U/L (8-44); AST 30 U/L (13-35); Albumin 3.6 g/dL (3.8-4.9); Albumin/Globulin Ratio 1.57 Ratio (1.60-3.17); Alkaline Phosphatase 67 U/L (41-126); Blood Urea Nitrogen 8.4 mg/dL (9.0-27.0); Calcium 9.1 mg/dL (8.7-10.3); Carbon Dioxide 21.3 mmol/L (21.6-31.8); Chloride 105 mmol/L (96-109); Globulin 2.3 g/dL (1.6-3.3); Glucose 97 mg/dL (70-110); Potassium 3.9 mmol/L (3.5-5.5); Sodium 137 mmol/L (135-145); Total Bilirubin 0.7 mg/dL (0.3-1.2); Total Protein 5.9 g/dL (6.2-8.2)
== END 2023-09-02 13:34 | disposition home or self-care (01) ==
LOC: EC 18:02 → 5NMEDONC 21:02
PROVIDERS: ADMIT Internal Medicine; ATTEND Internal Medicine
DX: F10.239 Alcohol dependence with withdrawal, unspecified (principal); F10.229 Alcohol dependence with intoxication, unspecified; Y90.8 Blood alcohol level of 240 mg/100 ml or more; L30.9 Dermatitis, unspecified; G72.1 Alcoholic myopathy; E83.42 Hypomagnesemia; D75.89 Other specified diseases of blood and blood-forming organs; K70.10 Alcoholic hepatitis without ascites; I10 Essential (primary) hypertension; M19.90 Unspecified osteoarthritis, unspecified site; G89.29 Other chronic pain; M54.50 Low back pain, unspecified; R26.9 Unspecified abnormalities of gait and mobility; R00.2 Palpitations; R56.9 Unspecified convulsions; F41.9 Anxiety disorder, unspecified; F17.200 Nicotine dependence, unspecified, uncomplicated; Z88.2 Allergy status to sulfonamides; Z91.048 Other nonmedicinal substance allergy status; Z91.013 Allergy to seafood; Z91.81 History of falling; Z87.19 Personal history of other diseases of the digestive system; Z87.440 Personal history of urinary (tract) infections; Z86.010 Personal history of colon polyps; Z80.8 Family history of malignant neoplasm of other organs or systems
CPT/HCPCS: 96376 ×3; 96361 ×2; 96365; 96366; 96375 ×2; 96372; 99285; 36415; 97530 ×2; 97162; 97166; 80053 ×4; 83690 ×2; 83735 ×3; 84100 ×2; 85025 ×2; 85027 ×2; 80320; G0378 ×4; J2060 ×2; J3411 ×3; J2405; J3475

== ENCOUNTER 2023-09-18 14:25 | Emergency (ER) | payer BC, OTHER ==
[2023-09-18] MEDS ORDERED: SODIUM CHLORIDE 0.9% 1,000 ML IV ONE (14:41)
[2023-09-18] MEDS ORDERED: DIPHENOX-ATROP 2.5-0.025 MG 1 EACH TAB PO STA (14:42)
--- NOTE | 2023-09-18 14:46 | ED ---
General Adult HPI - General Chief complaint: Abdominal Pain Stated complaint: Abd pain Time Seen by Provider: 09/18/23 14:30 Source: patient, EMS, RN notes reviewed, old records reviewed Mode of arrival: EMS Limitations: no limitations - History of Present Illness Initial comments: This is a 63-year-old female presents emergency Department stating she's had diarrhea for 3 days. Patient denies any abdominal pain. Patient denies any nausea vomiting. Patient denies any fever chills. Patient states she had her last drink 5 days ago. Patient denies any chest pain difficulty breathing shortness of breath per patient denies any back pain. Patient denies any dysuria hematuria urinary frequency - Related Data Home Medications Medication Instructions Recorded Confirmed Calcium(Unknown Dose) 1 tab PO DAILY 08/30/23 08/30/23 Vitamin B Complex 1 cap PO DAILY 08/30/23 08/30/23 Vitamin C(Unknown Dose) 1 tab PO DAILY 08/30/23 08/30/23 Vitamin D3(Unknown Dose) 1 tab PO DAILY 08/30/23 08/30/23 Previous Rx's Medication Instructions Recorded Magnesium Oxide [Mag-Ox] 400 mg PO DAILY 90 Days #90 tablet 09/02/23 Allergies Allergy/AdvReac Type Severity Reaction Status Date / Time shellfish derived [Shellfish] Allergy Severe Dyspnea Verified 09/18/23 14:33 iodine Allergy Rash/Hives Verified 09/18/23 14:33 Sulfa (Sulfonamide Allergy Rash/Hives Verified 09/18/23 14:33 Antibiotics) Review of Systems ROS Statement: Those systems with pertinent positive or pertinent negative responses have been documented in the HPI. ROS Other: All systems not noted in ROS Statement are negative. Past Medical History Past Medical History: Hypertension, Osteoarthritis (OA) Additional Past Medical History / Comment(s): Fall September 2019 with neck injury/L arm weak/decreased sensation and weakness to L leg-sent to [facility] and had cervical surgery, chronic cervical/L shoulder pain since surgery, chronic low back pain for years, ETOH abuse-pt states she has had withdrawals/shaking/weakness/nausea/one seizure long ago, alcoholic hepatitis, 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 History of Any Multi-Drug Resistant Organisms: None Reported Past Surgical History: Back Surgery Additional Past Surgical History / Comment(s): Cervical surgery at [facility] d/t injury, colonoscopies/benign polypectomy Past Anesthesia/Blood Transfusion Reactions: No Reported Reaction, Motion Sickness Additional Past Anesthesia/Blood Transfusion Reaction / Comment(s): PT has clausterphobia. Past Psychological History: Anxiety Smoking Status: Current some day smoker Past Alcohol Use History: Abuse, Daily Past Drug Use History: None Reported - Past Family History Mother Family Medical History: Cancer Additional Family Medical History / Comment(s): Mother of melanoma Father Family Medical History: No Reported History Additional Family Medical History / Comment(s): Father is healthy General Exam - General Exam Comments Initial Comments: GENERAL: Patient is well-developed and well-nourished. Patient is nontoxic and well- hydrated and is in no acute distress. ENT: Neck is soft and supple. No significant lymphadenopathy is noted. Oropharynx is clear. Moist mucous membranes. Neck has full range of motion without eliciting any pain. EYES: The sclera were anicteric and conjunctiva were pink and moist. Extraocular movements were intact and pupils were equal round and reactive to light. Eyelids were unremarkable. PULMONARY: Unlabored respirations. Good breath sounds bilaterally. No audible rales rhonchi or wheezing was noted. CARDIOVASCULAR: There is a regular rate and rhythm without any murmurs gallops or rubs. ABDOMEN: Soft and nontender with normal bowel sounds. SKIN: Skin is clear with no lesions or rashes and otherwise unremarkable. NEUROLOGIC: Patient is alert and oriented x3. Cranial nerves II through XII are grossly intact. Motor and sensory are also intact. Normal speech, volume and content. Symmetrical smile. MUSCULOSKELETAL: Normal extremities with adequate strength and full range of motion. LYMPHATICS: No significant lymphadenopathy is noted PSYCHIATRIC: Normal psychiatric evaluation. Limitations: no limitations Course Vital Signs 09/18/23 14:29 Temperature 98.1 F Pulse Rate 99 Respiratory 18 Rate Blood Pressure 127/91 O2 Sat by Pulse 98 Oximetry Medical Decision Making - Medical Decision Making Was pt. sent in by a medical professional or institution (, PA, ICE CREAM FREEZER ASSISTANT, urgent care, hospital, or intermediate...) When possible be specific @ -[No] Did you speak to anyone other than the patient for history (EMS, parent, family, police, friend...)? What history was obtained from this source @ -[No] Did you review nursing and triage notes (agree or disagree)? Why? @ -[I reviewed and agree with nursing and triage notes] Were old charts reviewed (outside hosp., previous admission, EMS record, old EKG, old radiological studies, urgent care reports/EKG's, intermediate records)? Report findings @ -I reviewed prior laboratory this patient Differential Diagnosis (chest pain, altered mental status, abdominal pain women, abdominal pain men, vaginal bleeding, weakness, fever, dyspnea, syncope, headache, dizziness, GI bleed, back pain, seizure, CVA, palpatations, mental health, musculoskeletal)? @ -[not applicable] EKG interpreted by me (3pts min.). @ -[As above] X-rays interpreted by me (1pt min.). @ -[None done] CT interpreted by me (1pt min.). @ -[None done] U/S interpreted by me (1pt. min.). @ -[None done] What testing was considered but not performed or refused? (CT, X-rays, U/S, labs)? Why? @ -[None] What meds were considered but not given or refused? Why? @ -[None] Did you discuss the management of the patient with other professionals (professionals i.e. , PA, ICE CREAM FREEZER ASSISTANT, lab, RT, psych nurse, social secretary, multi site leasing consultant, teacher, medical information officer, briefcase sewer)? Give summary @ -[No] Was smoking cessation discussed for >3mins.? @ -[No] Was critical care preformed (if so, how long)? @ -[No] Were there social determinants of health that impacted care today? How? (Homelessness, low income, unemployed, alcoholism, drug addiction, transportation, low edu. Level, literacy, decrease access to med. care, shelter, rehab)? @ -[No] Was there de-escalation of care discussed even if they declined (Discuss DNR or withdrawal of care, Hospice)? DNR status @ -[No] What co-morbidities impacted this encounter? (DM, HTN, Smoking, COPD, CAD, Cancer, CVA, ARF, Chemo, Hep., AIDS, mental health diagnosis, sleep apnea, morbid obesity)? @ -[None] Was patient admitted / discharged? Hospital course, mention meds given and route, prescriptions, significant lab abnormalities, going to OR and other pertinent info. @ -Not having any abdominal pain. Patient was given 2 Lomotil in Emergency Department. She had no further bowel movements. Lab work was done lab work was in normal range Undiagnosed new problem with uncertain prognosis? @ -[No] Drug Therapy requiring intensive monitoring for toxicity (Heparin, Nitro, Insulin, Cardizem)? @ -[No] Were any procedures done? @ -[No] Diagnosis/symptom? @ -Diarrhea Acute, or Chronic, or Acute on Chronic? @ -Acute Uncomplicated (without systemic symptoms) or Complicated (systemic symptoms)? @ -Uncomplicated Side effects of treatment? @ -[No] Exacerbation, Progression, or Severe Exacerbation? @ -[No] Poses a threat to life or bodily function? How? (Chest pain, [place], [place], pneumonia, PE, COPD, DKA, ARF, appy, cholecystitis, CVA, Diverticulitis, Homicidal, Suicidal, threat to staff... and all critical care pts) @ -[No] - Lab Data Result diagrams: 09/18/23 14:55 09/18/23 14:55 Lab Results 09/18/23 09/18/23 Range/Units 14:55 14:55 WBC 8.4 (3.8-10.6) k/uL RBC 4.41 (3.80-5.40) m/uL Hgb 15.2 (11.4-16.0) gm/dL Hct 44.9 (34.0-46.0) % MCV 102.0 H (80.0-100.0) fL MCH 34.5 (25.0-35.0) pg MCHC 33.8 (31.0-37.0) g/dL RDW 12.6 (11.5-15.5) % Plt Count 137 L D (150-450) k/uL MPV 8.8 Neutrophils % 74 % Lymphocytes % 18 % Monocytes % 5 % Eosinophils % 1 % Basophils % 1 % Neutrophils # 6.2 (1.3-7.7) k/uL Lymphocytes # 1.5 (1.0-4.8) k/uL Monocytes # 0.4 (0-1.0) k/uL Eosinophils # 0.1 (0-0.7) k/uL Basophils # 0.0 (0-0.2) k/uL Sodium 130 L (137-145) mmol/L Potassium 3.6 (3.5-5.1) mmol/L Chloride 90 L (98-107) mmol/L Carbon Dioxide 27 (22-30) mmol/L Anion Gap 13 mmol/L BUN 22 H (7-17) mg/dL Creatinine 0.60 (0.52-1.04) mg/dL Est GFR (CKD-EPI)AfAm >90 (>60 ml/min/1.73 sqM) Est GFR (CKD-EPI)NonAf >90 (>60 ml/min/1.73 sqM) Glucose 137 H (74-99) mg/dL Calcium 8.8 (8.4-10.2) mg/dL Total Bilirubin 1.7 H (0.2-1.3) mg/dL AST 99 H (14-36) U/L ALT 45 H (4-34) U/L Alkaline Phosphatase 78 (38-126) U/L Total Protein 7.8 (6.3-8.2) g/dL Albumin 4.5 (3.5-5.0) g/dL Disposition Clinical Impression: Diarrhea Disposition: HOME SELF-CARE Condition: Good Instructions (If sedation given, give patient instructions): Acute Diarrhea (ED) Is patient prescribed a controlled substance at d/c from ED?: No Referrals: None,Stated [Primary Care Provider] - 1-2 days Time of Disposition: 15:44
[2023-09-18 14:54] VITALS: RESP 18; TEMP 98.1
[2023-09-18 15:01] LABS: Basophils % (A) 1 %; Eosinophils # (A) 0.1 k/uL (0-0.7); Eosinophils % (A) 1 %; HCT 44.9 % (34.0-46.0); HGB 15.2 gm/dL (11.4-16.0); Lymphocytes # (A) 1.5 k/uL (1.0-4.8); Lymphocytes % (A) 18 %; MCH 34.5 pg (25.0-35.0); MCHC 33.8 g/dL (31.0-37.0); Mean Platelet Volume 8.8; Monocytes # (A) 0.4 k/uL (0-1.0); Monocytes % (A) 5 %; Neutrophils # (A) 6.2 k/uL (1.3-7.7); Neutrophils % (A) 74 %; RBC 4.41 m/uL (3.80-5.40); RDW 12.6 % (11.5-15.5); WBC 8.4 k/uL (3.8-10.6)
[2023-09-18] MEDS ORDERED: KETOROLAC 15 MG/ML 1 ML VIAL IVP STA (15:01)
[2023-09-18 15:14] LABS: Platelet Count 137 k/uL (150-450)
[2023-09-18 15:42] LABS: ALT 45 U/L (4-34); AST 99 U/L (14-36); African American GFR (CKD) >90 (>60 ml/min/1.73 sqM); Albumin 4.5 g/dL (3.5-5.0); Alkaline Phosphatase 78 U/L (38-126); Anion Gap 13 mmol/L; Blood Urea Nitrogen 22 mg/dL (7-17); Calcium 8.8 mg/dL (8.4-10.2); Carbon Dioxide 27 mmol/L (22-30); Chloride 90 mmol/L (98-107); Glucose 137 mg/dL (74-99); Non-African American GFR(CKD) >90 (>60 ml/min/1.73 sqM); Potassium 3.6 mmol/L (3.5-5.1); Sodium 130 mmol/L (137-145); Total Bilirubin 1.7 mg/dL (0.2-1.3); Total Protein 7.8 g/dL (6.3-8.2)
[2023-09-18] MEDS ORDERED: DIPHENOX-ATROP STARTER PACK 8 TAB BTL PO STA (15:44)
[2023-09-18 16:21] VITALS: BP 135/84; PULSE 98
== END 2023-09-18 16:07 | disposition home or self-care (01) ==
LOC: EC 14:25
DX: R19.7 Diarrhea, unspecified (principal); I10 Essential (primary) hypertension; F17.200 Nicotine dependence, unspecified, uncomplicated; Z86.59 Personal history of other mental and behavioral disorders; Z88.2 Allergy status to sulfonamides; Z91.013 Allergy to seafood; Z91.041 Radiographic dye allergy status
CPT/HCPCS: 99285 ×2; 96374 ×2; 96361 ×2; 36415; 80053; 85025; J1885

== ENCOUNTER 2023-10-14 19:44 | Emergency (ER) | payer BC, OTHER ==
[2023-10-14 20:25] LABS: ALT 18 U/L (4-34); AST 31 U/L (14-36); African American GFR (CKD) >90 (>60 ml/min/1.73 sqM); Albumin 4.3 g/dL (3.5-5.0); Alkaline Phosphatase 67 U/L (38-126); Amylase 51 U/L (30-110); Anion Gap 15 mmol/L; Blood Urea Nitrogen 8 mg/dL (7-17); Calcium 8.5 mg/dL (8.4-10.2); Carbon Dioxide 18 mmol/L (22-30); Chloride 110 mmol/L (98-107); Glucose 95 mg/dL (74-99); Lipase 42 U/L (23-300); Non-African American GFR(CKD) >90 (>60 ml/min/1.73 sqM); Sodium 143 mmol/L (137-145); Total Bilirubin 0.4 mg/dL (0.2-1.3); Total Protein 7.3 g/dL (6.3-8.2)
[2023-10-14 20:32] LABS: Basophils # (A) 0.1 k/uL (0-0.2); Basophils % (A) 1 %; Eosinophils # (A) 0.2 k/uL (0-0.7); Eosinophils % (A) 3 %; HCT 50.3 % (34.0-46.0); HGB 16.7 gm/dL (11.4-16.0); Lymphocytes # (A) 3.9 k/uL (1.0-4.8); Lymphocytes % (A) 42 %; MCHC 33.3 g/dL (31.0-37.0); MCV 99.3 fL (80.0-100.0); Mean Platelet Volume 7.7; Monocytes # (A) 0.2 k/uL (0-1.0); Monocytes % (A) 2 %; Neutrophils # (A) 4.7 k/uL (1.3-7.7); Neutrophils % (A) 50 %; Platelet Count 267 k/uL (150-450); RBC 5.06 m/uL (3.80-5.40); RDW 12.4 % (11.5-15.5); WBC 9.4 k/uL (3.8-10.6)
--- NOTE | 2023-10-15 02:18 | CT ---
EXAMINATION TYPE: CT abdomen pelvis wo con DATE OF EXAM: 10/15/2023 HISTORY: l flank pain CT DLP: 458.9 mGycm. Automated Exposure Control for Dose Reduction was Utilized. TECHNIQUE: CT scan of the abdomen and pelvis is performed without oral or IV contrast. COMPARISON: CT abdomen and pelvis April 2020 FINDINGS: Within the limitations of a non-contrast study, the following observations are made. LUNG BASES: No significant abnormality is appreciated. LIVER/GB: There is dependent density thought to reflect small stones and/or gallbladder sludge. Gallb ladder shows no significant surrounding fluid or fat stranding. PANCREAS: No significant abnormality is seen. SPLEEN: No significant abnormality is seen. ADRENALS: No significant abnormality is seen. KIDNEYS: No renal stones or hydronephrosis is seen bilaterally. BOWEL: A few distal colonic diverticula redemonstrated. No CT evidence for acute diverticulitis. No a bnormal small or large bowel dilatation. GENITAL ORGANS: No gross abnormality seen. LYMPH NODES: No greater than 1cm abdominal or pelvic lymph nodes are appreciated. OSSEOUS STRUCTURES: Mild to moderate disc space narrowing with secondary disc phenomenon at L4-L5 lev el redemonstrated. Multilevel facet arthropathy in the lumbar spine. OTHER: Mild Calcified plaque of the abdominal aorta. IMPRESSION: No renal stones or hydronephrosis is seen bilaterally. No acute findings on noncontrast C T to account for patient's symptoms.
[2023-10-15] MEDS: SODIUM CHLORIDE 0.9% 500 ML 500 ML IV STA (02:27)
[2023-10-15] MEDS: LORazepam 2 MG/ML INJ IV STA (02:27)
[2023-10-15] MEDS: MORPHINE SULFATE 4 MG/ML SYRINGE IV STA (02:28)
[2023-10-15 02:51] VITALS: TEMP 97.7
[2023-10-15 03:43] LABS: Appearance,Urine Clear (Clear); Bilirubin,Urine Negative (Negative); Blood,Urine Negative (Negative); Color,Urine Yellow; Glucose,Urine (UA) Negative (Negative); Ketones,Urine Negative (Negative); Leukocyte Esterase,Urine Negative (Negative); Mucus,Urine Rare /hpf; Nitrite,Urine Positive (Negative); Protein,Urine Trace (Negative); RBC,Urine 4 /hpf (0-5); Specific Gravity,Urine 1.015 (1.001-1.035); Squamous Epithelial Cell,Urine 1 /hpf (0-4); Urobilinogen,Urine <2.0 mg/dL (<2.0); WBC,Urine 4 /hpf (0-5)
--- NOTE | 2023-10-15 04:22 | ED ---
General Adult HPI - General Chief complaint: GI Bleed Stated complaint: abd pain Time Seen by Provider: 10/15/23 01:50 Source: EMS Mode of arrival: EMS Limitations: no limitations - History of Present Illness Initial comments: This patient is a 63-year-old woman who presents with complaint that she has been having some intermittent abdominal pains and noticed that her stool appeared darker. Patient states that the pain sometimes is in the upper abdom en, sometimes lower. It is difficult to characterize, the intensity varies. Patient concerned because she does drink on a daily basis and is worried about ulcer. Patient denies hematemesis. Again has noted dark stool no red blood. No symptoms of anemia including no orthostasis, syncope, lightheadedness, palpitations, chest pain, dyspnea, diaphoresis. Onset/Timin -: days(s) Location: abdomen Quality: aching Consistency: intermittent Improves with: none Worsens with: none Associated Symptoms: denies other symptoms Treatments Prior to Arrival: none - Related Data Home Medications Medication Instructions Recorded Confirmed Calcium(Unknown Dose) 1 tab PO DAILY 08/30/23 08/30/23 Vitamin B Complex 1 cap PO DAILY 08/30/23 08/30/23 Vitamin C(Unknown Dose) 1 tab PO DAILY 08/30/23 08/30/23 Vitamin D3(Unknown Dose) 1 tab PO DAILY 08/30/23 08/30/23 Previous Rx's Medication Instructions Recorded Magnesium Oxide [Mag-Ox] 400 mg PO DAILY 90 Days #90 tablet 09/02/23 Allergies Allergy/AdvReac Type Severity Reaction Status Date / Time shellfish derived [Shellfish] Allergy Severe Dyspnea Verified 10/14/23 19:50 iodine Allergy Rash/Hives Verified 10/14/23 19:50 Sulfa (Sulfonamide Allergy Rash/Hives Verified 10/14/23 19:50 Antibiotics) Review of Systems ROS Statement: Those systems with pertinent positive or pertinent negative responses have been documented in the HPI. ROS Other: All systems not noted in ROS Statement are negative. Constitutional: Denies: fever, chills, weakness Eyes: Denies: vision change Respiratory: Denies: cough, dyspnea Cardiovascular: Denies: chest pain, palpitations, edema, syncope Gastrointestinal: Reports: abdominal pain, nausea, melena (Dark stool). Denies: vomiting, diarrhea, constipation, hematochezia Genitourinary: Denies: dysuria, hematuria Musculoskeletal: Denies: back pain Skin: Denies: rash Neurological: Denies: headache, weakness, numbness Past Medical History Past Medical History: Hypertension, Osteoarthritis (OA) Additional Past Medical History / Comment(s): Fall September 2019 with neck injury/L arm weak/decreased sensation and weakness to L leg-sent to [facility] and had cervical surgery, chronic cervical/L shoulder pain since surgery, chronic low back pain for years, ETOH abuse-pt states she has had withdrawals/shaking/weakness/nausea/one seizure long ago, alcoholic hepatitis, 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 History of Any Multi-Drug Resistant Organisms: None Reported Past Surgical History: Back Surgery Additional Past Surgical History / Comment(s): Cervical surgery at [facility] d/t injury, colonoscopies/benign polypectomy Past Anesthesia/Blood Transfusion Reactions: No Reported Reaction, Motion Sickness Additional Past Anesthesia/Blood Transfusion Reaction / Comment(s): PT has clausterphobia. Past Psychological History: Anxiety Smoking Status: Current some day smoker Past Alcohol Use History: Abuse, Daily Past Drug Use History: None Reported - Past Family History Mother Family Medical History: Cancer Additional Family Medical History / Comment(s): Mother of melanoma Father Family Medical History: No Reported History Additional Family Medical History / Comment(s): Father is healthy General Exam Limitations: no limitations General appearance: alert, in no apparent distress Head exam: Present: atraumatic, normocephalic Eye exam: Present: normal appearance. Absent: scleral icterus, conjunctival injection Neck exam: Present: normal inspection Respiratory exam: Present: normal lung sounds bilaterally. Absent: respiratory distress, wheezes, rales, rhonchi, stridor, accessory muscle use Cardiovascular Exam: Present: regular rate, normal rhythm, normal heart sounds. Absent: systolic murmur, diastolic murmur, rubs, gallop GI/Abdominal exam: Present: soft, tenderness (There is marked tenderness in the quadrant, no rebound.). Absent: distended, guarding, rebound, rigid, mass Rectal exam: Present: other (Declines digital rectal exam) Extremities exam: Present: normal inspection, normal capillary refill. Absent: pedal edema, calf tenderness Back exam: Present: normal inspection. Absent: CVA tenderness (R), CVA tenderness (L) Neurological exam: Present: alert Skin exam: Present: warm, dry, intact, normal color. Absent: rash Course Vital Signs 10/14/23 10/15/23 10/15/23 19:45 02:31 04:41 Temperature 98.8 F 97.7 F Pulse Rate 84 87 80 Respiratory 18 16 17 Rate Blood Pressure 121/74 144/83 140/70 O2 Sat by Pulse 98 98 95 Oximetry Medical Decision Making - Medical Decision Making The patient had CT of the abdomen and pelvis which I interpreted as negative for acute diverticulitis, free air, obstruction Patient is a 63-year-old woman who does have marked abdominal tenderness on the exam. It does seem to be very superficial, suspect in the abdominal wall but given that patient does drink regularly CT scan is obtained to ensure that alcohol does not confound the exam. See result above. The patient is feeling better following medication and would like to go home, she will have close follow-up, will return if return parameters met Was pt. sent in by a medical professional or institution (, PA, LANGUAGE TEACHER, urgent care, hospital, or shelter...) When possible be specific @ -[No] Did you speak to anyone other than the patient for history (EMS, parent, family, police, friend...)? What history was obtained from this source @ -[No] Did you review nursing and triage notes (agree or disagree)? Why? @ -[I reviewed and agree with nursing and triage notes] Were old charts reviewed (outside hosp., previous admission, EMS record, old EKG, old radiological studies, urgent care reports/EKG's, shelter records)? Report findings @ -[No old charts were reviewed] Differential Diagnosis (chest pain, altered mental status, abdominal pain women, abdominal pain men, vaginal bleeding, weakness, fever, dyspnea, syncope, headache, dizziness, GI bleed, back pain, seizure, CVA, palpatations, mental health, musculoskeletal)? @ -[Differential GI Bleed: Esophageal varices, aortoenteric fistula, Anuradha-Ramesh, gastritis, peptic ulcer disease, diverticulosis, inflammatory bowel disease, hemorrhoids, fissure, colitis, malignancy, Meckels diverticulum, this is not meant to be an all- inclusive list. EKG interpreted by me (3pts min.). @ -[As above] X-rays interpreted by me (1pt min.). @ -[None done] CT interpreted by me (1pt min.). @ -[I interpreted as above U/S interpreted by me (1pt. min.). @ -[None done] What testing was considered but not performed or refused? (CT, X-rays, U/S, labs)? Why? @ -[None] What meds were considered but not given or refused? Why? @ -[None] Did you discuss the management of the patient with other professionals ( professionals i.e. , PA, LANGUAGE TEACHER, lab, RT, psych nurse, social media sr strategy manager, rn pool, teacher, electronic warfare officer, shelter case manager)? Give summary @ -[No] Was smoking cessation discussed for >3mins.? @ -[No] Was critical care preformed (if so, how long)? @ -[No] Were there social determinants of health that impacted care today? How? (Homelessness, low income, unemployed, alcoholism, drug addiction, transportati on, low edu. Level, literacy, decrease access to med. care, fdc, rehab)? @ -[No] Was there de-escalation of care discussed even if they declined (Discuss DNR or withdrawal of care, Hospice)? DNR status @ -[No] What co-morbidities impacted this encounter? (DM, HTN, Smoking, COPD, CAD, Cancer, CVA, ARF, Chemo, Hep., AIDS, mental health diagnosis, sleep apnea, morbid obesity)? @ -[None] Was patient admitted / discharged? Hospital course, mention meds given and route, prescriptions, significant lab abnormalities, going to OR and other pertinent info. @ -[Patient is a 63-year-old woman here with concerns about dark stool. With her use of alcohol, the patient counseled to have close follow-up. Hemoglobin and vital signs are normal. Patient feeling better with medication. Discussed appropriate further care and follow-up as well as return parameters Undiagnosed new problem with uncertain prognosis? @ -[No] Drug Therapy requiring intensive monitoring for toxicity (Heparin, Nitro, Insu kristin, Cardizem)? @ -[No] Were any procedures done? @ -[No] Diagnosis/symptom? @ -[default] Acute, or Chronic, or Acute on Chronic? @ -[default] Uncomplicated (without systemic symptoms) or Complicated (systemic symptoms)? @ -[default] Side effects of treatment? @ -[No] Exacerbation, Progression, or Severe Exacerbation? @ -[No] Poses a threat to life or bodily function? How? (Chest pain, USA, [place], pneumonia, PE, COPD, DKA, ARF, appy, cholecystitis, CVA, Diverticulitis, Homicidal, Suicidal, threat to staff... and all critical care pts) @ -[No] - Lab Data Result diagrams: 10/14/23 20:02 10/14/23 20:02 Lab Results 10/14/23 10/14/23 10/14/23 Range/Units 20: 20:02 20:02 WBC 9.4 (3.8-10.6) k/uL RBC 5.06 (3.80-5.40) m/uL Hgb 16.7 H (11.4-16.0) gm/dL Hct 50.3 H (34.0-46.0) % MCV 99.3 (80.0-100.0) fL MCH 33.0 (25.0-35.0) pg MCHC 33.3 (31.0-37.0) g/dL RDW 12.4 (11.5-15.5) % Plt Count 267 (150-450) k/uL MPV 7.7 Neutrophils % 50 % Lymphocytes % 42 % Monocytes % 2 % Eosinophils % 3 % Basophils % 1 % Neutrophils # 4.7 (1.3-7.7) k/uL Lymphocytes # 3.9 (1.0-4.8) k/uL Monocytes # 0.2 (0-1.0) k/uL Eosinophils # 0.2 (0-0.7) k/uL Basophils # 0.1 (0-0.2) k/uL APTT 22.2 (22.0-30.0) sec Sodium 143 (137-145) mmol/L Potassium 4.0 (3.5-5.1) mmol/L Chloride 110 H (98-107) mmol/L Carbon Dioxide 18 L (22-30) mmol/L Anion Gap 15 mmol/L BUN 8 (7-17) mg/dL Creatinine 0.36 L (0.52-1.04) mg/dL Est GFR (CKD-EPI)AfAm >90 (>60 ml/min/1.73 sqM) Est GFR (CKD-EPI)NonAf >90 (>60 ml/min/1.73 sqM) Glucose 95 (74-99) mg/dL Calcium 8.5 (8.4-10.2) mg/dL Total Bilirubin 0.4 (0.2-1.3) mg/dL AST 31 (14-36) U/L ALT 18 (4-34) U/L Alkaline Phosphatase 67 (38-126) U/L Total Protein 7.3 (6.3-8.2) g/dL Albumin 4.3 (3.5-5.0) g/dL Amylase 51 (30-110) U/L Lipase 42 (23-300) U/L Urine Color Urine Appearance (Clear) Urine pH (5.0-8.0) Ur Specific [place] (1.001-1.035) Urine Protein (Negative) Urine Glucose (UA) (Negative) Urine Ketones (Negative) Urine Blood (Negative) Urine Nitrite (Negative) Urine Bilirubin (Negative) Urine Urobilinogen (<2.0) mg/dL Ur Leukocyte Esterase (Negative) Urine RBC (0-5) /hpf Urine WBC (0-5) /hpf Ur Squamous Epith Cells (0-4) /hpf Urine Mucus (None) /hpf Blood Type Blood Type Recheck Bld Type Recheck Status Antibody Screen Spec Expiration Date 10/14/23 10/15/23 Range/Units 20:40 03:26 WBC (3.8-10.6) k/uL RBC (3.80-5.40) m/uL Hgb (11.4-16.0) gm/dL Hct (34.0-46.0) % MCV (80.0-100.0) fL MCH (25.0-35.0) pg MCHC (31.0-37.0) g/dL RDW (11.5-15.5) % Plt Count (150-450) k/uL MPV Neutrophils % % Lymphocytes % % Monocytes % % Eosinophils % % Basophils % % Neutrophils # (1.3-7.7) k/uL Lymphocytes # (1.0-4.8) k/uL Monocytes # (0-1.0) k/uL Eosinophils # (0-0.7) k/uL Basophils # (0-0.2) k/uL APTT (22.0-30.0) sec Sodium (137-145) mmol/L Potassium (3.5-5.1) mmol/L Chloride (98-107) mmol/L Carbon Dioxide (22-30) mmol/L Anion Gap mmol/L BUN (7-17) mg/dL Creatinine (0.52-1.04) mg/dL Est GFR (CKD-EPI)AfAm (>60 ml/min/1.73 sqM) Est GFR (CKD-EPI)NonAf (>60 ml/min/1.73 sqM) Glucose (74-99) mg/dL Calcium (8.4-10.2) mg/dL Total Bilirubin (0.2-1.3) mg/dL AST (14-36) U/L ALT (4-34) U/L Alkaline Phosphatase (38-126) U/L Total Protein (6.3-8.2) g/dL Albumin (3.5-5.0) g/dL Amylase (30-110) U/L Lipase (23-300) U/L Urine Color Yellow Urine Appearance Clear (Clear) Urine pH 6.0 (5.0-8.0) Ur Specific [place] 1.015 (1.001-1.035) Urine Protein Trace H (Negative) Urine Glucose (UA) Negative (Negative) Urine Ketones Negative (Negative) Urine Blood Negative (Negative) Urine Nitrite Positive H (Negative) Urine Bilirubin Negative (Negative) Urine Urobilinogen <2.0 (<2.0) mg/dL Ur Leukocyte Esterase Negative (Negative) Urine RBC 4 (0-5) /hpf Urine WBC 4 (0-5) /hpf Ur Squamous Epith Cells 1 (0-4) /hpf Urine Mucus Rare H (None) /hpf Blood Type A Negative Blood Type Recheck A Neg Bld Type Recheck Status No Antibody Screen NEGATIVE Spec Expiration Date 10/17/20232339 Disposition Clinical Impression: Abdominal wall pain Disposition: HOME SELF-CARE Condition: Good Instructions (If sedation given, give patient instructions): Abdominal Pain (ED) Is patient prescribed a controlled substance at d/c from ED?: No Referrals: None,Stated [Primary Care Provider] - 1-2 days
[2023-10-15] MEDS: traMADol 50 MG STARTER PACK 3 TAB BTL PO STA (04:36)
[2023-10-15 04:52] VITALS: BP 140/70; PULSE 80; RESP 17
== END 2023-10-15 04:42 | disposition home or self-care (01) ==
LOC: EC 19:44
DX: R10.10 Upper abdominal pain, unspecified (principal); I10 Essential (primary) hypertension; F17.200 Nicotine dependence, unspecified, uncomplicated; Z88.2 Allergy status to sulfonamides; Z88.8 Allergy status to other drugs, medicaments and biological substances; Z91.013 Allergy to seafood
CPT/HCPCS: 36415; 86900; 86901; 80053; 82150; 83690; 85025; 85730; 86850; 81001; 87086; 74176; 99285; 96374; 96375; 96361; J2060; J2270

== ENCOUNTER 2023-11-26 20:38 | Inpatient (IN) | payer BC, OTHER ==
--- NOTE | 2023-11-26 21:02 | ED ---
Female Urogenital HPI - General Chief complaint: Urogenital Stated complaint: Hematuria, ETOH Time Seen by Provider: 11/26/23 20:50 Source: patient, EMS, RN notes reviewed Mode of arrival: EMS Limitations: no limitations - History of Present Illness Initial comments: 63-year-old female with a known history of drinking 1/2 to 1 pint of alcohol per day also smoker who states for the past several days she has had hematuria and dysuria. She denies any fevers chills or sweats she states she does get somewhat lightheaded when she gets up but she is not been eating or drinking normally lately either she also had nausea and EMS reported emesis basins with emesis and at her trailer. She had a 500 cc bolus of fluids by paramedics as well as IV Zofran. She has had no prior history of hematuria she has had UTIs in the past but no bleeding like this. No other current complaints or modifying factors MD Complaint: dysuria - Related Data Home Medications Medication Instructions Recorded Confirmed Calcium(Unknown Dose) 1 tab PO DAILY 08/30/23 08/30/23 Vitamin B Complex 1 cap PO DAILY 08/30/23 08/30/23 Vitamin C(Unknown Dose) 1 tab PO DAILY 08/30/23 08/30/23 Vitamin D3(Unknown Dose) 1 tab PO DAILY 08/30/23 08/30/23 Previous Rx's Medication Instructions Recorded Magnesium Oxide [Mag-Ox] 400 mg PO DAILY 90 Days #90 tablet 09/02/23 Allergies Allergy/AdvReac Type Severity Reaction Status Date / Time shellfish derived [Shellfish] Allergy Severe Dyspnea Verified 10/14/23 19:50 iodine Allergy Rash/Hives Verified 10/14/23 19:50 Sulfa (Sulfonamide Allergy Rash/Hives Verified 10/14/23 19:50 Antibiotics) Review of Systems ROS Statement: Those systems with pertinent positive or pertinent negative responses have been documented in the HPI. ROS Other: All systems not noted in ROS Statement are negative. 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 History of Any Multi-Drug Resistant Organisms: None Reported Past Surgical History: Back Surgery Additional Past Surgical History / Comment(s): Cervical surgery at [facility] d/t injury, colonoscopies/benign polypectomy Past Anesthesia/Blood Transfusion Reactions: No Reported Reaction, Motion Sickness Additional Past Anesthesia/Blood Transfusion Reaction / Comment(s): PT has clausterphobia. Past Psychological History: Anxiety Smoking Status: Current some day smoker Past Alcohol Use History: Abuse, Daily Past Drug Use History: None Reported - Past Family History Mother Family Medical History: Cancer Additional Family Medical History / Comment(s): Mother of melanoma Father Family Medical History: No Reported History Additional Family Medical History / Comment(s): Father is healthy General Exam - General Exam Comments Initial Comments: This is a well-developed well-nourished awake alert oriented x 4 female Limitations: no limitations General appearance: alert, anxious ENT exam: Present: mucous membranes dry (There is a smell of alcohol conjoiners on her breath) Neck exam: Present: normal inspection, full ROM. Absent: tenderness, meningismu s, lymphadenopathy Respiratory exam: Present: normal lung sounds bilaterally. Absent: respiratory distress, wheezes, rales, rhonchi, stridor Cardiovascular Exam: Present: regular rate, normal rhythm, normal heart sounds. Absent: systolic murmur, diastolic murmur, rubs, gallop, clicks GI/Abdominal exam: Present: soft, normal bowel sounds. Absent: distended, tenderness, guarding, rebound, rigid, bruit, pulsatile mass Rectal exam: Present: deferred External exam: Present: other (Evidence of perineal dermatitis) Extremities exam: Present: normal inspection, full ROM, normal capillary refill. Absent: tenderness, pedal edema, joint swelling, calf tenderness Back exam: Present: normal inspection, full ROM Neurological exam: Present: alert, oriented X3, CN II-XII intact Psychiatric exam: Present: normal affect, anxious Skin exam: Present: warm, dry, intact, normal color. Absent: rash Course Vital Signs 11/26/23 20:47 Temperature 98.5 F Pulse Rate 86 Respiratory 18 Rate Blood Pressure 132/79 O2 Sat by Pulse 96 Oximetry Medical Decision Making - Medical Decision Making B interpreted by me no acute process nonspecific. EKG interpreted by me showed a sinus rhythm 81 AK interval 152 QRS ration 1 2 QT/QTc 393/430 nonspecific EKG. I did discuss the findings with the patient she has a alcohol level of 405 also a low magnesium level. Patient's UA is pending as she has not been able to urinate since probably secondary to volume depletion she will be admitted for presumed treatment of UTI as well as alcohol intoxication Dr. Cole will be notified. Was pt. sent in by a medical professional or institution (, EDITH, LAW OFFICE ASSISTANT, urgent care, hospital, or jail...) When possible be specific @ -No Did you speak to anyone other than the patient for history (EMS, parent, family, police, friend...)? What history was obtained from this source @ -Paramedics upon arrival Did you review nursing and triage notes (agree or disagree)? Why? @ -I reviewed and agree with nursing and triage notes Were old charts reviewed (outside hosp., previous admission, EMS record, old EKG, old radiological studies, urgent care reports/EKG's, jail records)? Report findings @ -Old charts were reviewed Differential Diagnosis (chest pain, altered mental status, abdominal pain women, abdominal pain men, vaginal bleeding, weakness, fever, dyspnea, syncope, headache, dizziness, GI bleed, back pain, seizure, CVA, palpatations, mental health, musculoskeletal)? @ -Not applicable EKG interpreted by me (3pts min.). @ -As above EKG interpreted by me normal sinus rhythm 81 AK interval 152 QRS duration 102 QT/QTc 393/430 this is a normal-appearing EKG no acute ST-T wave changes X-rays interpreted by me (1pt min.). @ -KUB interpreted by me nonspecific findings. CT interpreted by me (1pt min.). @ -None done U/S interpreted by me (1pt. min.). @ -None done What testing was considered but not performed or refused? (CT, X-rays, U/S, labs)? Why? @ -None What meds were considered but not given or refused? Why? @ -None Did you discuss the management of the patient with other professionals (professionals i.e. , PA, LAW OFFICE ASSISTANT, lab, RT, psych nurse, social research assistant, clutch specialist, teacher, home lending officer, immigration case worker)? Give summary @ -Dr. Cole. Patient does not recall who her new physician has Was smoking cessation discussed for >3mins.? @ -No Was critical care preformed (if so, how long)? @ -No Were there social determinants of health that impacted care today? How? (Homelessness, low income, unemployed, alcoholism, drug addiction, transportation, low edu. Level, literacy, decrease access to med. care, halfway, rehab)? @ -Chronic alcohol use Was there de-escalation of care discussed even if they declined (Discuss DNR or withdrawal of care, Hospice)? DNR status @ -No What co-morbidities impacted this encounter? (DM, HTN, Smoking, COPD, CAD, Cancer, CVA, ARF, Chemo, Hep., AIDS, mental health diagnosis, sleep apnea, morbid obesity)? @ -Chronic alcohol use, smoking] Was patient admitted / discharged? Hospital course, mention meds given and route, prescriptions, significant lab abnormalities, going to OR and other pertinent info. @ -Hospital course patient was admitted she will be given a dose of antibiotics for presumed UTI based on symptoms Undiagnosed new problem with uncertain prognosis? @ -No Drug Therapy requiring intensive monitoring for toxicity (Heparin, Nitro, Insulin, Cardizem)? @ -No Were any procedures done? @ -No Diagnosis/symptom? @ -Acute alcohol intoxication, UTI, perineal dermatitis, dehydration, hypomagnesium Keren Acute, or Chronic, or Acute on Chronic? @ -Acute on chronic Uncomplicated (without systemic symptoms) or Complicated (systemic symptoms)? @ -Complicated Side effects of treatment? @ -No Exacerbation, Progression, or Severe Exacerbation? @ -No Poses a threat to life or bodily function? How? (Chest pain, USA, CT, pneumonia, PE, COPD, DKA, ARF, appy, cholecystitis, CVA, Diverticulitis, Homicidal, Suicidal, threat to staff... and all critical care pts) @ -Potential - Lab Data Result diagrams: 11/26/23 21:45 11/26/23 21:45 Lab Results 11/26/23 11/26/23 Range/Units 21:45 21:45 WBC 11.8 H (3.8-10.6) k/uL RBC 4.97 (3.80-5.40) m/uL Hgb 16.3 H (11.4-16.0) gm/dL Hct 49.5 H (34.0-46.0) % MCV 99.5 (80.0-100.0) fL MCH 32.8 (25.0-35.0) pg MCHC 32.9 (31.0-37.0) g/dL RDW 13.3 (11.5-15.5) % Plt Count 477 H (150-450) k/uL MPV 7.0 Neutrophils % 62 % Lymphocytes % 26 % Monocytes % 3 % Eosinophils % 6 % Basophils % 2 % Neutrophils # 7.3 (1.3-7.7) k/uL Lymphocytes # 3.1 (1.0-4.8) k/uL Monocytes # 0.4 (0-1.0) k/uL Eosinophils # 0.7 (0-0.7) k/uL Basophils # 0.2 (0-0.2) k/uL Sodium 144 (137-145) mmol/L Potassium 3.5 (3.5-5.1) mmol/L Chloride 105 (98-107) mmol/L Carbon Dioxide 22 (22-30) mmol/L Anion Gap 17 mmol/L BUN 9 (7-17) mg/dL Creatinine 0.51 L (0.52-1.04) mg/dL Est GFR (CKD-EPI)AfAm >90 (>60 ml/min/1.73 sqM) Est GFR (CKD-EPI)NonAf >90 (>60 ml/min/1.73 sqM) Glucose 101 H (74-99) mg/dL Calcium 8.6 (8.4-10.2) mg/dL Magnesium 1.3 L (1.6-2.3) mg/dL Total Bilirubin 0.4 (0.2-1.3) mg/dL AST 39 H (14-36) U/L ALT 21 (4-34) U/L Alkaline Phosphatase 83 (38-126) U/L Creatine Kinase 49 (30-135) U/L Total Protein 7.3 (6.3-8.2) g/dL Albumin 4.3 (3.5-5.0) g/dL Lipase 64 (23-300) U/L Serum Alcohol 405 H* mg/dL Disposition Clinical Impression: Acute alcohol intoxication, Hypomagnesemia, Dehydration, Dermatitis, Alcohol abuse, Smoking Disposition: ADMITTED IP TO THIS HOSP Condition: Stable Referrals: None,Stated [Primary Care Provider] - 1-2 days Time of Disposition: 23:00 Decision Date: 11/26/23 Decision Time: 23:25
[2023-11-26] MEDS: KETOROLAC 15 MG/ML 1 ML VIAL IVP STA (22:00)
[2023-11-26] MEDS: SODIUM CHLORIDE 0.9% 500 ML 500 ML IV STA (22:00)
[2023-11-26 22:32] LABS: Basophils # (A) 0.2 k/uL (0-0.2); Basophils % (A) 2 %; Eosinophils # (A) 0.7 k/uL (0-0.7); Eosinophils % (A) 6 %; HCT 49.5 % (34.0-46.0); HGB 16.3 gm/dL (11.4-16.0); Lymphocytes # (A) 3.1 k/uL (1.0-4.8); Lymphocytes % (A) 26 %; MCH 32.8 pg (25.0-35.0); MCHC 32.9 g/dL (31.0-37.0); MCV 99.5 fL (80.0-100.0); Monocytes # (A) 0.4 k/uL (0-1.0); Monocytes % (A) 3 %; Neutrophils # (A) 7.3 k/uL (1.3-7.7); Neutrophils % (A) 62 %; Platelet Count 477 k/uL (150-450); RBC 4.97 m/uL (3.80-5.40); RDW 13.3 % (11.5-15.5); WBC 11.8 k/uL (3.8-10.6)
[2023-11-26 22:37] LABS: ALT 21 U/L (4-34); AST 39 U/L (14-36); African American GFR (CKD) >90 (>60 ml/min/1.73 sqM); Albumin 4.3 g/dL (3.5-5.0); Alkaline Phosphatase 83 U/L (38-126); Anion Gap 17 mmol/L; Blood Urea Nitrogen 9 mg/dL (7-17); Calcium 8.6 mg/dL (8.4-10.2); Carbon Dioxide 22 mmol/L (22-30); Chloride 105 mmol/L (98-107); Creatine Kinase 49 U/L (30-135); Glucose 101 mg/dL (74-99); Lipase 64 U/L (23-300); Magnesium 1.3 mg/dL (1.6-2.3); Non-African American GFR(CKD) >90 (>60 ml/min/1.73 sqM); Potassium 3.5 mmol/L (3.5-5.1); Sodium 144 mmol/L (137-145); Total Bilirubin 0.4 mg/dL (0.2-1.3); Total Protein 7.3 g/dL (6.3-8.2)
[2023-11-26 22:48] LABS: Alcohol 405 mg/dL
[2023-11-26] MEDS ORDERED: NALOXONE 0.4 MG/ML 1 ML VIAL IV PRN (23:07)
[2023-11-26] MEDS: MAGNESIUM SULFATE-D5W PMX 1 GM in DEXTROSE/WATER 1 100ML.BAG IVPB SCH (23:24)
[2023-11-26] MEDS: THIAMINE 100 MG/ML 2 ML VIAL IM STA (23:25)
[2023-11-26] MEDS: LORazepam 2 MG/ML INJ IV PRN (23:25)
[2023-11-26] MEDS: ZINC OXIDE PASTE (Z-GUARD) 1 APPLIC TOPICAL PRN (23:31)
[2023-11-26] MEDS: SODIUM CHLORIDE 0.9% 1,000 ML IV STA (23:33)
[2023-11-26] MEDS: cefTRIAXone IN SWFI 1,000 MG/10 ML SYRINGE IVP ONE (23:50)
[2023-11-26] MEDS: SODIUM CHLORIDE 0.9% 1,000 ML IV SCH (23:51)
--- NOTE | 2023-11-27 01:08 | XR ---
EXAM: XR Abdomen, 1 View CLINICAL HISTORY: ITS.REASON XR Reason: Dysuria TECHNIQUE: Frontal supine view of the abdomen/pelvis. COMPARISON: No relevant prior studies available. FINDINGS: Gastrointestinal tract: Nonobstructive bowel gas pattern. Organs: There is a 4 mm calcification in the right pelvis which could represent phlebolith versus right ureteral stone. Bones/joints: No acute fracture. No dislocation. IMPRESSION: 1. There is a 4 mm calcification in the right pelvis which could represent phlebolith versus right ureteral stone. 2. Nonobstructive bowel gas pattern.
[2023-11-27 03:32] LABS: Appearance,Urine Turbid (Clear); Bacteria,Urine Occasional /hpf; Bilirubin,Urine Negative (Negative); Blood,Urine Small (Negative); Color,Urine Yellow; Glucose,Urine (UA) Negative (Negative); Hyaline Casts,Urine 5 /lpf (0-2); Ketones,Urine 1+ (Negative); Leukocyte Esterase,Urine Large (Negative); Nitrite,Urine Positive (Negative); Protein,Urine 2+ (Negative); RBC,Urine 22 /hpf (0-5); Specific Gravity,Urine 1.023 (1.001-1.035); Squamous Epithelial Cell,Urine 10 /hpf (0-4); Urobilinogen,Urine <2.0 mg/dL (<2.0); WBC,Urine >182 /hpf (0-5)
[2023-11-27] MEDS: FOLIC ACID-VIT B COMPLEX-VIT C 1 CAP PO SCH (10:22)
[2023-11-27] MEDS: MAGNESIUM OXIDE 400 MG TAB PO SCH (10:22)
[2023-11-27] MEDS: THIAMINE 100 MG TAB PO SCH (10:22)
--- NOTE | 2023-11-27 10:41 | P.HPIM ---
History of Present Illness Patient is a 63-year-old female with history of alcohol abuse does drink alcohol on daily basis due to have a 1/5 of hard liquor yesterday and came in intoxicated to the hospital patient does have dysuria urinary urgency and frequency with the elevated white blood cell count and significantly abnormal infected urine. Patient is willing to quit alcohol. Patient denies any abdominal pain at this time. Patient has intertrigo for which patient is receiving zinc paste and nystatin was ordered as well. Patient was having nausea vomiting denies any significant abdominal pain REVIEW OF SYSTEMS: CONSTITUTIONAL: No fever, no malaise, no fatigue. HEENT: No recent visual problems or hearing problems. Denied any sore throat. CARDIOVASCULAR: No chest pain, orthopnea, PND, no palpitations, no syncope. PULMONARY: No shortness of breath, no cough, no hemoptysis. GASTROINTESTINAL: As mentioned in HPI NEUROLOGICAL: No headaches, no weakness, no numbness. HEMATOLOGICAL: Denies any bleeding or petechiae. GENITOURINARY: Denies any burning micturition, frequency, or urgency. MUSCULOSKELETAL/RHEUMATOLOGICAL: Denies any joint pain, swelling, or any muscle pain. ENDOCRINE: Denies any polyuria or polydipsia. The rest of the 14-point review of systems is negative. PHYSICAL EXAMINATION: GENERAL: The patient is alert and oriented x3, not in any acute distress. Well developed, well nourished. Patient is shaky and does have withdrawal symptoms HEENT: Pupils are round and equally reacting to light. EOMI. No scleral icterus. No conjunctival pallor. Normocephalic, atraumatic. No pharyngeal erythema. No thyromegaly. CARDIOVASCULAR: S1 and S2 present. No murmurs, rubs, or gallops. PULMONARY: Chest is clear to auscultation, no wheezing or crackles. ABDOMEN: Soft, nontender, nondistended, normoactive bowel sounds. No palpable organomegaly. MUSCULOSKELETAL: No joint swelling or deformity. EXTREMITIES: No cyanosis, clubbing, or pedal edema. NEUROLOGICAL: Gross neurological examination did not reveal any focal deficits. SKIN: No rashes. Assessment and plan -Alcohol withdrawal: Patient is on Ativan CIWA protocol which will be continued. -Alcohol abuse: Counseling was provided, patient is on thiamine multivitamin supplementation along with IV fluids which was switched to half-normal saline with concerns of hyponatremia as her sodium is 144 and chloride is 101 at this time -Urinary tract infection urine cultures will be obtained and patient was started on Rocephin 2 g -Nausea vomiting probably secondary to alcoholic gastritis for which patient was a started on Protonix -Hypertension DVT prophylaxis: Lovenox. 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 History of Any Multi-Drug Resistant Organisms: None Reported Past Surgical History: Back Surgery Additional Past Surgical History / Comment(s): Cervical surgery at [facility] d/t injury, colonoscopies/benign polypectomy Past Anesthesia/Blood Transfusion Reactions: No Reported Reaction, Motion Sickness Additional Past Anesthesia/Blood Transfusion Reaction / Comment(s): PT has clausterphobia. Past Psychological History: Anxiety Additional Psychological History / Comment(s): Pt resides with her spouse. Smoking Status: Current some day smoker Past Alcohol Use History: Abuse, Daily Additional Past Alcohol Use History / Comment(s): Pt started smoking in 1997 and a pack will last 4 days. Pt drinks on average a pint-2 pints of whiskey per day-she has quit several times and once quit for 5 yrs. Past Drug Use History: None Reported - Past Family History Mother Family Medical History: Cancer Additional Family Medical History / Comment(s): Mother of melanoma Father Family Medical History: No Reported History Additional Family Medical History / Comment(s): Father is healthy Medications and Allergies Home Medications Medication Instructions Recorded Confirmed Type Vitamin D3(Unknown Dose) 1 tab PO DAILY 08/30/23 11/27/23 History Multivitamins, Thera [Multivitamin 1 tab PO DAILY 11/27/23 11/27/23 History (formulary)] Allergies Allergy/AdvReac Type Severity Reaction Status Date / Time shellfish derived [Shellfish] Allergy Severe Dyspnea Verified 11/27/23 10:12 iodine Allergy Rash/Hives Verified 11/27/23 10:12 Sulfa (Sulfonamide Allergy Rash/Hives Verified 11/27/23 10:12 Antibiotics) Physical Exam Vitals: Vital Signs Temp Pulse Pulse Resp BP BP Pulse Ox 11/27/23 00:11 98.0 F 73 16 122/76 99 11/26/23 23:37 91 18 124/65 97 11/26/23 20:47 98.5 F 86 18 132/79 96 Intake and Output 11/26/23 11/27/23 11/27/23 22:59 06:59 14:59 Other: Voiding Method Diaper Incontinent External Catheter # Voids 1 Weight 72.575 kg 72.575 kg Results CBC & Chem 7: 11/26/23 21:45 11/26/23 21:45 Labs: Abnormal Lab Results - Last 24 Hours (Table) 11/26/23 11/26/23 11/27/23 Range/Units 21:45 21:45 03:05 WBC 11.8 H (3.8-10.6) k/uL Hgb 16.3 H (11.4-16.0) gm/dL Hct 49.5 H (34.0-46.0) % Plt Count 477 H (150-450) k/uL Creatinine 0.51 L (0.52-1.04) mg/dL Glucose 101 H (74-99) mg/dL Magnesium 1.3 L (1.6-2.3) mg/dL AST 39 H (14-36) U/L Urine Appearance Turbid H (Clear) Urine Protein 2+ H (Negative) Urine Ketones 1+ H (Negative) Urine Blood Small H (Negative) Urine Nitrite Positive H (Negative) Ur Leukocyte Esterase Large H (Negative) Urine RBC 22 H (0-5) /hpf Urine WBC >182 H (0-5) /hpf Urine WBC Clumps Rare H (None) /hpf Ur Squamous Epith Cells 10 H (0-4) /hpf Urine Bacteria Occasional H (None) /hpf Hyaline Casts 5 H (0-2) /lpf Serum Alcohol 405 H* mg/dL Thrombosis Risk Factor Assmnt - Choose All That Apply Each Risk Factor Represents 2 Points: Age 61-74 years Thrombosis Risk Factor Assessment Total Risk Factor Score: 2 Thrombosis Risk Factor Assessment Level: Low Risk
[2023-11-27] MEDS ORDERED: LORazepam 2 MG/ML INJ IV PRN (11:06)
[2023-11-27] MEDS: chlordiazePOXIDE 25 MG CAP PO SCH (11:14)
[2023-11-27] MEDS: MAGNESIUM SULFATE-D5W PMX 1 GM in DEXTROSE/WATER 1 100ML.BAG IVPB SCH (11:14)
[2023-11-27] MEDS: PANTOPRAZOLE 40 MG TABLET PO SCH (11:14)
[2023-11-27] MEDS: SODIUM CHLORIDE 0.45% 1,000 ML IV SCH (11:14)
[2023-11-27] MEDS: POTASSIUM CHLORIDE ER 20 MEQ TAB.ER PO STA (11:14)
[2023-11-27] MEDS: NYSTATIN 100,000 UNIT/GM POWD 15 GM TOPICAL SCH (14:28)
[2023-11-27] MEDS: LORazepam 2 MG/ML INJ IV PRN (14:36)
[2023-11-28] MEDS: ENOXAPARIN 40 MG/0.4 ML SYRINGE SQ SCH (08:30)
[2023-11-28 08:53] LABS: BUN/Creat Ratio <8.75 Ratio (12.00-20.00); Blood Urea Nitrogen <3.5 mg/dL (9.0-27.0); Calcium 8.4 mg/dL (8.7-10.3); Carbon Dioxide 23.3 mmol/L (21.6-31.8); Chloride 100 mmol/L (96-109); Glucose 88 mg/dL (70-110); Magnesium 1.8 mg/dL (1.5-2.4); Potassium 3.6 mmol/L (3.5-5.5); Sodium 135 mmol/L (135-145)
[2023-11-28 09:30] LABS: Basophils # (A) 0.06 X 10*3/uL (0.00-0.10); Basophils % (A) 0.7 %; Eosinophils # (A) 0.55 X 10*3/uL (0.04-0.35); Eosinophils % (A) 6.8 %; HCT 39.3 % (37.2-46.3); HGB 13.5 g/dL (12.0-15.0); Lymphocytes # (A) 1.54 X 10*3/uL (0.90-5.00); Lymphocytes % (A) 18.9 %; MCH 33.1 pg (27.0-32.0); MCHC 34.4 g/dL (32.0-37.0); MCV 96.3 FL (80.0-97.0); Mean Platelet Volume 9.8 FL (9.5-12.2); Monocytes # (A) 0.37 X 10*3/uL (0.20-1.00); Monocytes % (A) 4.5 %; NRBC Per 100 WBC 0 X 10*3/uL (0.00-0.01); Neutrophils % (A) 68.9 %; Platelet Count 227 X 10*3/uL (140-440); RBC 4.08 X 10*6/uL (4.10-5.20); RDW 13.2 % (11.5-14.5); WBC 8.14 X 10*3/uL (4.50-10.00)
[2023-11-28] MEDS: ACETAMINOPHEN TAB 500 MG TAB PO PRN (21:26)
--- NOTE | 2023-11-28 22:01 | P.PN ---
Subjective Progress Note Date: 11/28/23 Patient is a 63-year-old female with history of alcohol abuse does drink alcohol on daily basis due to have a 1/5 of hard liquor yesterday and came in intoxicated to the hospital patient does have dysuria urinary urgency and frequency with the elevated white blood cell count and significantly abnormal infected urine. Patient is willing to quit alcohol. Patient denies any abdominal pain at this time. Patient has intertrigo for which patient is receiving zinc paste and nystatin was ordered as well. Patient was having nausea vomiting denies any significant abdominal pain 11/28/2023 Patient evaluated today resting in bed. Continues to require IV ativan. Feeling nausea and tremulous. Patient continues to complain of itching, burning and feeling raw in her groin and external vagina. Patient is currently receiving zinc and nystatin paste and would benefit from the addition of steroid cream. UA was significantly abnormal urine culture not done prior to starting antibiotics. Blood culture remains negative. Patient is pending PT evaluation; PHYSICAL EXAMINATION: GENERAL: The patient is alert and oriented x3, not in any acute distress. Well developed, well nourished. Patient is shaky and does have withdrawal symptoms HEENT: Pupils are round and equally reacting to light. EOMI. No scleral icterus. No conjunctival pallor. Normocephalic, atraumatic. No pharyngeal erythema. No thyromegaly. CARDIOVASCULAR: S1 and S2 present. No murmurs, rubs, or gallops. PULMONARY: Chest is clear to auscultation, no wheezing or crackles. ABDOMEN: Soft, nontender, nondistended, normoactive bowel sounds. No palpable organomegaly. MUSCULOSKELETAL: No joint swelling or deformity. EXTREMITIES: No cyanosis, clubbing, or pedal edema. NEUROLOGICAL: Gross neurological examination did not reveal any focal deficits. SKIN: No rashes. Assessment and plan -Alcohol withdrawal: Patient is on Ativan CIWA protocol which will be continued. -Alcohol abuse: Counseling was provided, patient is on thiamine multivitamin supplementation and continues on 1/2 normal saline. Electrolytes remains WNL. -Urinary tract infection, POA, no evidence of sepsis continues on IV ceftriaxone and urine culture pending however was taken after starting antibiotics. -Nausea vomiting probably secondary to alcoholic gastritis for which patient was a started on Protonix -Hypertension -Intertrigo continue on nystatin and kenalog ointment BID in the groin and external vagina. DVT prophylaxis: Lovenox. GI prophylaxis Protonix Full Code The impression and plan of care has been dictated by Shreya Robles, Nurse Practitioner as directed. Dr. Harry MD I have performed a history and physical examination and medical decision making of this patient, discussed the same with the dictator, and agree with the dictators assessment and plan as written, documented as a scribe. Based on total visit time, I have performed more than 50% of this visit. Objective - Vital Signs Vital signs: Vital Signs Temp 98.4 F 11/28/23 20:00 Pulse 89 11/28/23 20:00 Resp 16 11/28/23 20:00 BP 137/84 11/28/23 20:00 Pulse Ox 97 11/28/23 20:00 FiO2 Intake & Output 11/28/23 11/28/23 11/29/23 06:59 18:59 06:59 Intake Total 1800 Output Total 1 Balance 1799 Intake: Intake, IV Titration 1800 Amount Sodium Chloride 0.45% 1, 1800 000 ml @ 75 mls/hr IV . [id number] [facility] Rx#:[id number] Output: Stool 1 Other: Voiding Method Diaper Diaper Incontinent External Catheter # Voids 3 2 # Bowel Movements 2 - Labs CBC & Chem 7: 11/28/23 05:21 11/28/23 05:21 Labs: Abnormal Lab Results - Last 24 Hours (Table) 11/28/23 11/28/23 Range/Units 05:21 05:21 RBC 4.08 L (4.10-5.20) X 10*6/uL MCH 33.1 H (27.0-32.0) pg Eosinophils # 0.55 H (0.04-0.35) X 10*3/uL BUN <3.5 L (9.0-27.0) mg/dL Creatinine 0.4 L (0.6-1.5) mg/dL BUN/Creatinine Ratio <8.75 L (12.00-20.00) Ratio Calcium 8.4 L (8.7-10.3) mg/dL Microbiology - Last 24 Hours (Table) 11/26/23 21:45 Blood Culture - Preliminary Blood Assessment and Plan Time with Patient: Less than 30
[2023-11-29] MEDS: NYSTATIN 100,000UNIT/GM CREAM 30 GM TUBE TOPICAL SCH (14:23)
[2023-11-29] MEDS: TRIAMCINOLONE 0.1% CREAM 80 GM TUBE TOPICAL SCH (14:23)
[2023-11-29 14:53] VITALS: BP 122/77; PULSE 86; RESP 17; TEMP 99.2
--- NOTE | 2023-11-30 20:12 | P.DS ---
Providers Date of admission: 11/26/23 23:12 Attending physician: Jerri Cole MD Primary care physician: Stated None Hospital Course: Final Diagnosis -Alcohol withdrawal: treated with ativan CIWA -Alcohol abuse: Counseling was provided, patient is on thiamine multivitamin supplementation -Urinary tract infection, POA, no evidence of sepsis continues on IV ceftriaxone -Nausea vomiting probably secondary to alcoholic gastritis for which patient was a started on Protonix -Hypertension -Intertrigo continue on nystatin and kenalog ointment BID in the groin and external vagina. \ Discharge Disposition Patient is stable for discharge home. Will be sent on 3 days of oral librium taper and discussed avoiding alcohol. Patient to continue on nystatin and triamcinolone creams twice a day to the external vaginal area for the intertrigo. Patient given information for local providers and recommended to establish care with a PCP. Additionally patient given information for AA. Urine culture negative and no further antibiotics needed on discharge. Hospital Course Patient is a 63-year-old female with history of alcohol abuse does drink alcohol on daily basis due to have a 1/5 of hard liquor yesterday and came in intoxicated to the hospital patient does have dysuria urinary urgency and frequency with the elevated white blood cell count and significantly abnormal infected urine. Patient is willing to quit alcohol. Patient denies any abdominal pain at this time. Patient has intertrigo for which patient is receiving zinc paste and nystatin was ordered as well. Patient was having nausea vomiting denies any significant abdominal pain. Patient was treated empirically with IV ceftriaxone and urine culture did come back negative and no further antibiotics are required on discharge. Patient was evaluated by physical therapy recommending home on discharge. Patient not having any further reports of nausea, no chest pain no shortness of breath. She has been tolerating diet. Patient has no further signs of acute alcohol withdrawal and will be transit ioned to oral librium from IV ativan. Hemodynamically she is stable and will be discharged home. Please see medication reconciliation for a list of current medications. Thank you for allowing us to participate in the care of this patient. The impression and plan of care has been dictated by Shreya Robles Nurse Practitioner as directed. Dr. Harry MD I have performed a history and physical examination and medical decision making of this patient, discussed the same with the dictator, and agree with the dictators assessment and plan as written, documented as a scribe. Based on total visit time, I have performed more than 50% of this visit. Patient Condition at Discharge: Fair Plan - Discharge Summary New Discharge Prescriptions: New Triamcinolone 0.1% Cream [Kenalog 0.1% Cream] 1 applic TOPICAL BID #1 each Magnesium Oxide [Mag-Ox] 400 mg PO DAILY #15 tab Nystatin 100,000Unit/gm Cream [Mycostatin Cream] 1 applic TOPICAL BID each Nystatin 100,000 Unit/gm Powd [Mycostatin Powder] 1 applic TOPICAL TID #1 each Folic Acid-Vit B Complex-Vit C [Nephrocaps] 1 each PO DAILY #30 cap Pantoprazole [Protonix] 40 mg PO AC-BRKFST #30 tab Thiamine [Vitamin B-1] 100 mg PO DAILY #30 tab Continue Vitamin D3(Unknown Dose) 1 tab PO DAILY Multivitamins, Thera [Multivitamin (formulary)] 1 tab PO DAILY No Action chlordiazePOXIDE HCl [Librium] See Taper PO DIRECTED Discharge Medication List Vitamin D3(Unknown Dose) 1 tab PO DAILY 08/30/23 [History] Multivitamins, Thera [Multivitamin (formulary)] 1 tab PO DAILY 11/27/23 [History] Folic Acid-Vit B Complex-Vit C [Nephrocaps] 1 each PO DAILY #30 cap 11/29/23 [Rx] Magnesium Oxide [Mag-Ox] 400 mg PO DAILY #15 tab 11/29/23 [Rx] Nystatin 100,000 Unit/gm Powd [Mycostatin Powder] 1 applic TOPICAL TID #1 each 11/29/23 [Rx] Nystatin 100,000Unit/gm Cream [Mycostatin Cream] 1 applic TOPICAL BID each 11/29/23 [Rx] Pantoprazole [Protonix] 40 mg PO AC-BRKFST #30 tab 11/29/23 [Rx] Thiamine [Vitamin B-1] 100 mg PO DAILY #30 tab 11/29/23 [Rx] Triamcinolone 0.1% Cream [Kenalog 0.1% Cream] 1 applic TOPICAL BID #1 each 11/29/23 [Rx] chlordiazePOXIDE HCl [Librium] See Taper PO DIRECTED 11/30/23 [History] Follow up Appointment(s)/Referral(s): [facility] [NON-STAFF] - As Needed (Call to inquire about services for in the home. ) [facility] [REFERRING] - As Needed (Call to see if you qualify for chore services in the home. ) None,Stated [Primary Care Provider] - 1-2 days Xochilt Mccarty MD [STAFF PHYSICIAN] - 1-2 Days Patient Instructions/Handouts: Alcohol Intoxication (DC), Abuse of Alcohol (DC), Alcohol Withdrawal (DC) Activity/Diet/Wound Care/Special Instructions: Establish care with a PCP. Avoid all alcohol. Continue on oral librium taper to avoid any alcohol wi thdrawal symptoms. Do not take librium if you drink alcohol. Continue with the nystatin and triamcinolone cream together - apply a thin layer to the external vagina twice a day Continue with zinc barrier paste to the buttock excoriation. Discharge/Stand Alone Forms: AA Meetings [place], Outpatient Counseling, Inp Substance Abuse Facilities, Area PCPs Discharge Disposition: HOME SELF-CARE
== END 2023-11-29 16:45 | disposition home or self-care (01) | DRG 690 ==
LOC: EC 20:38 → 6NMEDSUR 23:11 → OBSVTOIN 23:12 → 6NMEDSUR 23:57
PROVIDERS: ADMIT Internal Medicine; ATTEND Internal Medicine
DX: N39.0 Urinary tract infection, site not specified (principal); F10.139 Alcohol abuse with withdrawal, unspecified; G72.1 Alcoholic myopathy; K29.20 Alcoholic gastritis without bleeding; F10.129 Alcohol abuse with intoxication, unspecified; I10 Essential (primary) hypertension; R31.9 Hematuria, unspecified; E86.0 Dehydration; E83.42 Hypomagnesemia; Y90.8 Blood alcohol level of 240 mg/100 ml or more; F17.210 Nicotine dependence, cigarettes, uncomplicated; F41.9 Anxiety disorder, unspecified; L30.4 Erythema intertrigo; G89.21 Chronic pain due to trauma; M54.2 Cervicalgia; M25.512 Pain in left shoulder; F40.240 Claustrophobia; M19.90 Unspecified osteoarthritis, unspecified site; M54.50 Low back pain, unspecified; R26.9 Unspecified abnormalities of gait and mobility; R35.0 Frequency of micturition; R39.15 Urgency of urination; Z91.81 History of falling; Z71.41 Alcohol abuse counseling and surveillance of alcoholic; Z91.013 Allergy to seafood; Z88.8 Allergy status to other drugs, medicaments and biological substances; Z88.2 Allergy status to sulfonamides; Z28.21 Immunization not carried out because of patient refusal; Z86.010 Personal history of colon polyps; Z87.440 Personal history of urinary (tract) infections
CPT/HCPCS: 36415; 74018; 80048; 80053; 80320; 81001; 82550; 83690; 83735; 85025; 87040; 87086; 96365; 96372; 96375; 99285

== ENCOUNTER 2023-11-30 01:04 | Observation (INO) | payer BC, OTHER ==
[2023-11-30 01:43] LABS: Basophils # (A) 0.1 k/uL (0-0.2); Basophils % (A) 1 %; Eosinophils # (A) 0.5 k/uL (0-0.7); Eosinophils % (A) 5 %; HCT 40.7 % (34.0-46.0); HGB 13.6 gm/dL (11.4-16.0); Lymphocytes # (A) 2.7 k/uL (1.0-4.8); Lymphocytes % (A) 26 %; MCH 33.1 pg (25.0-35.0); MCHC 33.5 g/dL (31.0-37.0); MCV 98.7 fL (80.0-100.0); Mean Platelet Volume 8.5; Monocytes # (A) 0.3 k/uL (0-1.0); Monocytes % (A) 3 %; Neutrophils # (A) 6.7 k/uL (1.3-7.7); Neutrophils % (A) 64 %; Platelet Count 210 k/uL (150-450); RBC 4.12 m/uL (3.80-5.40); RDW 13.7 % (11.5-15.5); WBC 10.5 k/uL (3.8-10.6)
[2023-11-30 01:53] LABS: ALT 15 U/L (4-34); AST 28 U/L (14-36); African American GFR (CKD) >90 (>60 ml/min/1.73 sqM); Albumin 3.8 g/dL (3.5-5.0); Alkaline Phosphatase 63 U/L (38-126); Anion Gap 14 mmol/L; Blood Urea Nitrogen 5 mg/dL (7-17); Calcium 9.4 mg/dL (8.4-10.2); Carbon Dioxide 17 mmol/L (22-30); Chloride 113 mmol/L (98-107); Glucose 102 mg/dL (74-99); Non-African American GFR(CKD) >90 (>60 ml/min/1.73 sqM); Potassium 3.7 mmol/L (3.5-5.1); Sodium 144 mmol/L (137-145); Total Bilirubin 0.2 mg/dL (0.2-1.3); Total Protein 6.6 g/dL (6.3-8.2)
[2023-11-30 02:03] LABS: Alcohol 252 mg/dL
--- NOTE | 2023-11-30 03:57 | ED ---
Alcohol HPI - General Chief Complaint: Alcohol Stated Complaint: ETOH Time Seen by Provider: 11/30/23 01:25 Source: patient, EMS Mode of arrival: EMS Limitations: no limitations - History of Present Illness Initial Comments: 63-year-old female presenting to the ED with a chief complaint of alcohol intoxication. Patient was brought to this facility by EMS as EMS was initially called for lift assist as patient was on the floor and unable to get up secon monico to alcohol intoxication. Patient's was refusing to help her get up and was also very intoxicated at this time and therefore was brought to this facility for further evaluation. At this time patient has no complaints however history is limited secondary to significant intoxication. - Related Data Home Medications Medication Instructions Recorded Confirmed Vitamin D3(Unknown Dose) 1 tab PO DAILY 08/30/23 12/09/23 Multivitamins, Thera [Multivitamin 1 tab PO DAILY 11/27/23 12/09/23 (formulary)] Folic Acid-Vit B Complex-Vit C 1 cap PO DAILY 12/09/23 12/09/23 [Nephrocaps] Previous Rx's Medication Instructions Recorded Magnesium Oxide [Mag-Ox] 400 mg PO DAILY #15 tab 11/29/23 Nystatin 100,000 Unit/gm Powd 1 applic TOPICAL TID #1 each 11/29/23 [Mycostatin Powder] Nystatin 100,000Unit/gm Cream 1 applic TOPICAL BID each 11/29/23 [Mycostatin Cream] Pantoprazole [Protonix] 40 mg PO AC-BRKFST #30 tab 11/29/23 Thiamine [Vitamin B-1] 100 mg PO DAILY #30 tab 11/29/23 Triamcinolone 0.1% Cream [Kenalog 1 applic TOPICAL BID #1 each 11/29/23 0.1% Cream] Allergies Allergy/AdvReac Type Severity Reaction Status Date / Time shellfish derived [Shellfish] Allergy Severe Dyspnea Verified 12/09/23 07:38 iodine Allergy Rash/Hives Verified 12/09/23 07:38 Sulfa (Sulfonamide Allergy Rash/Hives Verified 12/09/23 07:40 Antibiotics) Review of Systems ROS Statement: Those systems with pertinent positive or pertinent negative responses have been documented in the HPI. ROS Other: All systems not noted in ROS Statement are negative. Past Medical History Past Medical History: Hypertension, Osteoarthritis (OA) Additional Past Medical History / Comment(s): Fall September 2019 with neck injury/L arm weak/decreased sensation and weakness to L leg-sent to 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 History of Any Multi-Drug Resistant Organisms: None Reported Past Surgical History: Back Surgery Additional Past Surgical History / Comment(s): Cervical surgery at [facility] d/t injury, colonoscopies/benign polypectomy Past Anesthesia/Blood Transfusion Reactions: No Reported Reaction, Motion Sickness Additional Past Anesthesia/Blood Transfusion Reaction / Comment(s): PT has cla usterphobia. Past Psychological History: Anxiety Smoking Status: Current some day smoker Past Alcohol Use History: Abuse, Daily Past Drug Use History: None Reported - Past Family History Mother Family Medical History: Cancer Additional Family Medical History / Comment(s): Mother of melanoma Father Family Medical History: No Reported History Additional Family Medical History / Comment(s): Father is healthy General Exam Limitations: no limitations General appearance: alert (Resting comfortably in bed.), in no apparent distress Eye exam: Present: normal appearance Respiratory exam: Present: normal lung sounds bilaterally Cardiovascular Exam: Present: regular rate GI/Abdominal exam: Present: soft, normal bowel sounds. Absent: distended, tenderness, guarding, rebound, rigid Neurological exam: Present: alert Skin exam: Present: warm, dry Course Vital Signs 11/30/23 11/30/23 11/30/23 01:10 01:12 02:00 Temperature 97.9 F Pulse Rate 85 79 Pulse Rate [ Right] Respiratory 18 27 H 25 H Rate Blood Pressure 99/66 97/63 Blood Pressure [Left Arm] O2 Sat by Pulse 97 96 94 L Oximetry 11/30/23 11/30/23 11/30/23 02:05 03:00 04:00 Temperature Pulse Rate 76 78 79 Pulse Rate [ Right] Respiratory 18 26 H 26 H Rate Blood Pressure 146/79 103/68 100/62 Blood Pressure [Left Arm] O2 Sat by Pulse 98 97 94 L Oximetry 11/30/23 11/30/23 11/30/23 05:00 06:00 07:30 Temperature 97.5 F L Pulse Rate 81 80 Pulse Rate [ 85 Right] Respiratory 18 24 20 Rate Blood Pressure 108/69 112/66 Blood Pressure 126/78 [Left Arm] O2 Sat by Pulse 96 99 97 Oximetry Medical Decision Making - Medical Decision Making Was pt. sent in by a medical professional or institution ([facility] Bolton, FLEET ADMINISTRATIVE ASSISTANT, urgent care, hospital, or group home...) When possible be specific @ -No Did you speak to anyone other than the patient for history (EMS, parent, family, police, friend...)? What history was obtained from this source @ -No Did you review nursing and triage notes (agree or disagree)? Why? @ -I reviewed and agree with nursing and triage notes Were old charts reviewed (outside hosp., previous admission, EMS record, old EKG, old radiological studies, urgent care reports/EKG's, group home records)? Report findings @ -Reviewed prior notes showing patient was discharged here on 11/29/2023 for the same complaints. Differential Diagnosis (chest pain, altered mental status, abdominal pain women, abdominal pain men, vaginal bleeding, weakness, fever, dyspnea, syncope, headache, dizziness, GI bleed, back pain, seizure, CVA, palpatations, mental health, musculoskeletal)? @ -Not applicable EKG interpreted by me (3pts min.). @ -As above X-rays interpreted by me (1pt min.). @ -None done CT interpreted by me (1pt min.). @ -None done U/S interpreted by me (1pt. min.). @ -None done What testing was considered but not performed or refused? (CT, X-rays, U/S, labs)? Why? @ -None What meds were considered but not given or refused? Why? @ -None Did you discuss the management of the patient with other professionals (professionals i.e. , EDITH, FLEET ADMINISTRATIVE ASSISTANT, lab, RT, psych nurse, social service technician, tread tuber machine operator, teacher, sanitation officer, porter sample case)? Give summary @ -No Was smoking cessation discussed for >3mins.? @ -No Was critical care preformed (if so, how long)? @ -No Were there social determinants of health that impacted care today? How? (Homelessness, low income, unemployed, alcoholism, drug addiction, trans portation, low edu. Level, literacy, decrease access to med. care, half-way, rehab)? @ -No Was there de-escalation of care discussed even if they declined (Discuss DNR or withdrawal of care, Hospice)? DNR status @ -No What co-morbidities impacted this encounter? (DM, HTN, Smoking, COPD, CAD, Cancer, CVA, ARF, Chemo, Hep., AIDS, mental health diagnosis, sleep apnea, morbid obesity)? @ -Alcoholism Was patient admitted / discharged? Hospital course, mention meds given and ro [place] ira, prescriptions, significant lab abnormalities, going to OR and other pertinent info. @ -Admission 63-year-old female with past medical history significant for alcoholism presenting to the ED secondary to alcohol intoxication. Laboratory studies reviewed. CBC largely unremarkable. Chemistry panel largely unremarkable. Alcohol is at 252. Patient will not be sober for another 9 to 10 hours. Patient will be admitted secondary to alcohol intoxication. Undiagnosed new problem with uncertain prognosis? @ -No Drug Therapy requiring intensive monitoring for toxicity (Heparin, Nitro, Insulin, Cardizem)? @ -No Were any procedures done? @ -No Diagnosis/symptom? @ -Alcohol intoxication Acute, or Chronic, or Acute on Chronic? @ -Acute on chronic Uncomplicated (without systemic symptoms) or Complicated (systemic symptoms)? @ -Uncomplicated Side effects of treatment? @ -No Exacerbation, Progression, or Severe Exacerbation? @ -No Poses a threat to life or bodily function? How? (Chest pain, USA, OR, pneumonia, PE, COPD, DKA, ARF, appy, cholecystitis, CVA, Diverticulitis, Homicidal, Suicidal, threat to staff... and all critical care pts) @ -Unlikely - Lab Data Result diagrams: 11/30/23 01:18 11/30/23 01:18 Lab Results 11/30/23 11/30/23 Range/Units 01:18 01:18 WBC 10.5 (3.8-10.6) k/uL RBC 4.12 (3.80-5.40) m/uL Hgb 13.6 (11.4-16.0) gm/dL Hct 40.7 (34.0-46.0) % MCV 98.7 (80.0-100.0) fL MCH 33.1 (25.0-35.0) pg MCHC 33.5 (31.0-37.0) g/dL RDW 13.7 (11.5-15.5) % Plt Count 210 (150-450) k/uL MPV 8.5 Neutrophils % 64 % Lymphocytes % 26 % Monocytes % 3 % Eosinophils % 5 % Basophils % 1 % Neutrophils # 6.7 (1.3-7.7) k/uL Lymphocytes # 2.7 (1.0-4.8) k/uL Monocytes # 0.3 (0-1.0) k/uL Eosinophils # 0.5 (0-0.7) k/uL Basophils # 0.1 (0-0.2) k/uL Sodium 144 (137-145) mmol/L Potassium 3.7 (3.5-5.1) mmol/L Chloride 113 H (98-107) mmol/L Carbon Dioxide 17 L (22-30) mmol/L Anion Gap 14 mmol/L BUN 5 L (7-17) mg/dL Creatinine 0.40 L (0.52-1.04) mg/dL Est GFR (CKD-EPI)AfAm >90 (>60 ml/min/1.73 sqM) Est GFR (CKD-EPI)NonAf >90 (>60 ml/min/1.73 sqM) Glucose 102 H (74-99) mg/dL Calcium 9.4 (8.4-10.2) mg/dL Total Bilirubin 0.2 (0.2-1.3) mg/dL AST 28 (14-36) U/L ALT 15 (4-34) U/L Alkaline Phosphatase 63 (38-126) U/L Total Protein 6.6 (6.3-8.2) g/dL Albumin 3.8 (3.5-5.0) g/dL Serum Alcohol 252 H* mg/dL Disposition Clinical Impression: Alcohol intoxication Disposition: ADMITTED IP TO THIS HOSP Condition: Fair
[2023-11-30] MEDS ORDERED: LORazepam 2 MG/ML INJ IV PRN ×2 (03:59)
[2023-11-30] MEDS: THIAMINE 100 MG/ML 2 ML VIAL IM STA (04:36)
[2023-11-30] MEDS: DEXTROSE 5%-0.45% NACL 1,000 ML IV SCH (04:40)
[2023-11-30] MEDS: LORazepam 2 MG/ML INJ IV PRN (04:48)
[2023-11-30 08:19] VITALS: PULSE 85
[2023-11-30] MEDS ORDERED: POTASSIUM CHLORIDE ER 20 MEQ TAB.ER PO ONE (10:33)
[2023-11-30] MEDS ORDERED: PANTOPRAZOLE 40 MG TABLET PO ONE (10:33)
[2023-11-30] MEDS: PANTOPRAZOLE 40 MG TABLET PO SCH (10:37)
[2023-11-30] MEDS: POTASSIUM CHLORIDE ER 20 MEQ TAB.ER PO STA (10:37)
[2023-11-30] MEDS: MAGNESIUM OXIDE 400 MG TAB PO SCH (10:37)
[2023-11-30] MEDS: FOLIC ACID 1 MG TAB PO SCH (10:37)
[2023-11-30] MEDS: FOLIC ACID-VIT B COMPLEX-VIT C 1 CAP PO SCH (10:38)
[2023-11-30] MEDS: NYSTATIN 100,000UNIT/GM CREAM 30 GM TUBE TOPICAL SCH (10:38)
[2023-11-30] MEDS: TRIAMCINOLONE 0.1% CREAM 80 GM TUBE TOPICAL SCH (10:38)
[2023-11-30] MEDS: NYSTATIN 100,000 UNIT/GM POWD 15 GM TOPICAL SCH (10:38)
[2023-11-30] MEDS: MULTIVITAMINS, THERA 1 EACH TAB PO SCH (10:40)
[2023-11-30] MEDS: THIAMINE 100 MG TAB PO SCH (10:43)
[2023-11-30 12:49] VITALS: BP 124/79; RESP 16; TEMP 98.4
--- NOTE | 2023-11-30 15:11 | P.HPIM ---
History of Present Illness H&P Date: 11/30/23 Patient is a 63-year-old female with history of alcohol abuse does drink alcohol on daily basis, came in intoxicated to the hospital with a blood alcohol level of 252. Patient was discharged from the hospital yesterday where she was admitted again secondary to acute alcohol intoxication from November 25 through November 27. Patient was treated with IV Ativan CIWA protocol and was treated for acute alcohol withdrawal. There was also concern for urinary incontinence as well as dysuria a urinalysis was completed showing positive for nitrates small blood 1+ ketones, turbid in color with large leukocyte esterase and greater than 182 WBCs. She was treated empirically with IV ceftriaxone while inpatient and her urine culture did come back negative with no further need for antibiotics on discharge. She is not having any fever no shortness of breath no chest discomfort no nausea vomiting or diarrhea. Patient was discharged home on a short course of oral Librium taper and recommended to avoid alcohol. She is given community resources to follow-up with AA, patient did state her prior admission that she was wanting to quit alcohol. She went home and states that she had bought a bottle of whiskey which she proceeded to drink and then was unable to get up off the couch so her called an ambulance to take her back to the hospital for acute alcohol intoxication. Patient is evaluated today she has sobered up she is alert x 3. She continues to report vaginal irritation and redness which she was also treated for intertrigo her prior admission with triamcinolone and nystatin cream which was recommended to continue on discharge. These medications have been resumed. REVIEW OF SYSTEMS: CONSTITUTIONAL: No fever, no malaise, no fatigue. HEENT: No recent visual problems or hearing problems. Denied any sore throat. CARDIOVASCULAR: No chest pain, orthopnea, PND, no palpitations, no syncope. PULMONARY: No shortness of breath, no cough, no hemoptysis. GASTROINTESTINAL: No diarrhea, no nausea, no vomiting, no abdominal pain. NEUROLOGICAL: No headaches, no weakness, no numbness. HEMATOLOGICAL: Denies any bleeding or petechiae. GENITOURINARY: Denies any burning micturition, frequency, or urgency. MUSCULOSKELETAL/RHEUMATOLOGICAL: Denies any joint pain, swelling, or any muscle pain. ENDOCRINE: Denies any polyuria or polydipsia. The rest of the 14-point review of systems is negative. PHYSICAL EXAMINATION: GENERAL: The patient is alert and oriented x3, not in any acute distress. Well developed, well nourished. HEENT: Pupils are round and equally reacting to light. EOMI. No scleral icterus. No conjunctival pallor. Normocephalic, atraumatic. No pharyngeal erythema. No thyromegaly. CARDIOVASCULAR: S1 and S2 present. No murmurs, rubs, or gallops. PULMONARY: Chest is clear to auscultation, no wheezing or crackles. ABDOMEN: Soft, nontender, nondistended, normoactive bowel sounds. No palpable organomegaly. MUSCULOSKELETAL: No joint swelling or deformity. EXTREMITIES: No cyanosis, clubbing, or pedal edema. NEUROLOGICAL: Gross neurological examination did not reveal any focal deficits. SKIN: No rashes. Assessment and plan -Acute alcohol intoxication patient will be discharged home to continue her oral Librium taper which was given to her yesterday. -Alcohol abuse: Counseling was provided, patient is on thiamine multivitamin supplementation -Hypertension currently normotensive. -Intertrigo being treted with nystatin and triamcinoline as well as zinc paste. -Anxiety -Alcoholism -Chronic nicotine use DVT prophylaxis: Lovenox. The impression and plan of care has been dictated by Shreya Robles Nurse Practitioner as directed. Dr. Harry MD I have performed a history and physical examination and medical decision making of this patient, discussed the same with the dictator, and agree with the dictators assessment and plan as written, documented as a scribe. Based on total visit time, I have performed more than 50% of this visit. 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 History of Any Multi-Drug Resistant Organisms: None Reported Past Surgical History: Back Surgery Additional Past Surgical History / Comment(s): Cervical surgery at [facility] d/t injury, colonoscopies/benign polypectomy Past Anesthesia/Blood Transfusion Reactions: No Reported Reaction, Motion Sickness Additional Past Anesthesia/Blood Transfusion Reaction / Comment(s): PT has clausterphobia. Past Psychological History: Anxiety Smoking Status: Current some day smoker Past Alcohol Use History: Abuse, Daily Past Drug Use History: None Reported - Past Family History Mother Family Medical History: Cancer Additional Family Medical History / Comment(s): Mother of melanoma Father Family Medical History: No Reported History Additional Family Medical History / Comment(s): Father is healthy Medications and Allergies Home Medications Medication Instructions Recorded Confirmed Type Vitamin D3(Unknown Dose) 1 tab PO DAILY 08/30/23 11/30/23 History Multivitamins, Thera [Multivitamin 1 tab PO DAILY 11/27/23 11/30/23 History (formulary)] Folic Acid-Vit B Complex-Vit C 1 each PO DAILY #30 cap 11/29/23 11/30/23 Rx [Nephrocaps] Magnesium Oxide [Mag-Ox] 400 mg PO DAILY #15 tab 11/29/23 11/30/23 Rx Nystatin 100,000 Unit/gm Powd 1 applic TOPICAL TID #1 each 11/29/23 11/30/23 Rx [Mycostatin Powder] Nystatin 100,000Unit/gm Cream 1 applic TOPICAL BID each 11/29/23 11/30/23 Rx [Mycostatin Cream] Pantoprazole [Protonix] 40 mg PO AC-BRKFST #30 tab 11/29/23 11/30/23 Rx Thiamine [Vitamin B-1] 100 mg PO DAILY #30 tab 11/29/23 11/30/23 Rx Triamcinolone 0.1% Cream [Kenalog 1 applic TOPICAL BID #1 each 11/29/23 11/30/23 Rx 0.1% Cream] chlordiazePOXIDE HCl [Librium] See Taper PO DIRECTED 11/30/23 11/30/23 His tory Allergies Allergy/AdvReac Type Severity Reaction Status Date / Time shellfish derived [Shellfish] Allergy Severe Dyspnea Verified 11/30/23 07:13 iodine Allergy Rash/Hives Verified 11/30/23 07:13 Sulfa (Sulfonamide Allergy Rash/Hives Verified 11/30/23 07:13 Antibiotics) Physical Exam Vitals: Vital Signs Temp Pulse Pulse Resp BP BP Pulse Ox 11/30/23 07:30 97.5 F L 85 20 126/78 97 11/30/23 06:00 80 24 112/66 99 11/30/23 05:00 81 18 108/69 96 11/30/23 04:00 79 26 H 100/62 94 L 11/30/23 03:00 78 26 H 103/68 97 11/30/23 02:05 76 18 146/79 98 11/30/23 02:00 79 25 H 97/63 94 L 11/30/23 01:12 27 H 96 11/30/23 01:10 97.9 F 85 18 99/66 97 Intake and Output 11/29/23 11/30/23 11/30/23 22:59 06:59 14:59 Other: Weight 72.575 kg Results CBC & Chem 7: 11/30/23 01:18 11/30/23 01:18 Labs: Abnormal Lab Results - Last 24 Hours (Table) 11/30/23 Range/Units 01:18 Chloride 113 H (98-107) mmol/L Carbon Dioxide 17 L (22-30) mmol/L BUN 5 L (7-17) mg/dL Creatinine 0.40 L (0.52-1.04) mg/dL Glucose 102 H (74-99) mg/dL Serum Alcohol 252 H* mg/dL Assessment and Plan Time with Patient: Less than 30
[2023-12-01] MEDS ORDERED: THIAMINE 100 MG TAB PO SCH (09:00)
--- NOTE | 2023-12-02 17:52 | P.DS ---
Providers Date of admission: 11/30/23 03:40 Attending physician: Radha Saldaña Primary care physician: Stated None Hospital Course: Final Diagnosis -Acute alcohol intoxication patient will be discharged home to continue her oral Librium taper wh wha -Alcohol abuse: Counseling was provided, patient is on thiamine multivitamin supplementation -Hypertension currently normotensive. -Intertrigo being treted with nystatin and triamcinoline as well as zinc paste. -Anxiety -Alcoholism -Chronic nicotine use Discharge Disposition Patient is stable for discharge home recommending to continue on the oral librium taper that was given from her on her prior admission. Patient to continue on nystatin/triamcinolone cream to the vaginal irritation and also to continue on oral nystatin to the intertrigo. Patient recommended to avoid alcohol. Recommended to establish care with a PCP. Hospital Course Patient is a 63-year-old female with history of alcohol abuse does drink alcohol on daily basis, came in intoxicated to the hospital with a blood alcohol level of 252. Patient was discharged from the hospital yesterday where she was admitted again secondary to acute alcohol intoxication from November 25 through November 27. Patient was treated with IV Ativan CIWA protocol and was treated for acute alcohol withdrawal. There was also concern for urinary incontinence as well as dysuria a urinalysis was completed showing positive for nitrates small blood 1+ ketones, turbid in color with large leukocyte esterase and greater than 182 WBCs. She was treated empirically with IV ceftriaxone while inpatient and her urine culture did come back negative with no further need for antibiotics on discharge. She is not having any fever no shortness of breath no chest discomfort no nausea vomiting or diarrhea. Patient was discharged home on a short course of oral Librium taper and recommended to avoid alcohol. She is given community resources to follow-up with AA, patient did state her prior admission that she was wanting to quit alcohol. She went home and states that she had bought a bottle of whiskey which she proceeded to drink and then was unable to get up off the couch so her called an ambulance to take her back to the hospital for acute alcohol intoxication. Patient is evaluated today she has sobered up she is alert x 3. She continues to report vaginal irritation and redness which she was also treated for intertrigo her prior admission with triamcinolone and nystatin cream which was recommended to continue on discharge. Patient unsure if she can quit alcohol recommended to look into a rehab facility. Patient to continue oral librium taper she states she will pick it up from the pharmacy. Discharge home. Please see medication reconciliation for a list of current medications. Thank you for allowing us to participate in the care of this patient. The impression and plan of care has been dictated by Shreya Robles, Nurse Practitioner as directed. Dr. Harry MD I have performed a history and physical examination and medical decision making of this patient, discussed the same with the dictator, and agree with the dictators assessment and plan as written, documented as a scribe. Based on total visit time, I have performed more than 50% of this visit. Patient Condition at Discharge: Fair Plan - Discharge Summary New Discharge Prescriptions: Continue Triamcinolone 0.1% Cream [Kenalog 0.1% Cream] 1 applic TOPICAL BID #1 each chlordiazePOXIDE HCl [Librium] See Taper PO DIRECTED Vitamin D3(Unknown Dose) 1 tab PO DAILY Multivitamins, Thera [Multivitamin (formulary)] 1 tab PO DAILY Magnesium Oxide [Mag-Ox] 400 mg PO DAILY #15 tab Nystatin 100,000Unit/gm Cream [Mycostatin Cream] 1 applic TOPICAL BID each Nystatin 100,000 Unit/gm Powd [Mycostatin Powder] 1 applic TOPICAL TID #1 each Folic Acid-Vit B Complex-Vit C [Nephrocaps] 1 each PO DAILY #30 cap Pantoprazole [Protonix] 40 mg PO AC-BRKFST #30 tab Thiamine [Vitamin B-1] 100 mg PO DAILY #30 tab Discharge Medication List Vitamin D3(Unknown Dose) 1 tab PO DAILY 08/30/23 [History] Multivitamins, Thera [Multivitamin (formulary)] 1 tab PO DAILY 11/27/23 [History] Folic Acid-Vit B Complex-Vit C [Nephrocaps] 1 each PO DAILY #30 cap 11/29/23 [Rx] Magnesium Oxide [Mag-Ox] 400 mg PO DAILY #15 tab 11/29/23 [Rx] Nystatin 100,000 Unit/gm Powd [Mycostatin Powder] 1 applic TOPICAL TID #1 each 11/29/23 [Rx] Nystatin 100,000Unit/gm Cream [Mycostatin Cream] 1 applic TOPICAL BID each 11/29/23 [Rx] Pantoprazole [Protonix] 40 mg PO AC-BRKFST #30 tab 11/29/23 [Rx] Thiamine [Vitamin B-1] 100 mg PO DAILY #30 tab 11/29/23 [Rx] Triamcinolone 0.1% Cream [Kenalog 0.1% Cream] 1 applic TOPICAL BID #1 each 11/29/23 [Rx] chlordiazePOXIDE HCl [Librium] See Taper PO DIRECTED 11/30/23 [History] Follow up Appointment(s)/Referral(s): None,Stated [Primary Care Provider] - 1-2 days Patient Instructions/Handouts: Chlordiazepoxide (By mouth), Fall Prevention for Older Adults (DC), Alcohol Intoxication (DC) Activity/Diet/Wound Care/Special Instructions: Continue with same librium taper as prescribed prior admission. Establish care with a PCP. Avoid alcohol. Discharge/Stand Alone Forms: AA [facility], Outpatient Counseling, Inp Substance Abuse Facilities, Area PCPs Discharge Disposition: HOME SELF-CARE
== END 2023-11-30 17:27 | disposition home or self-care (01) ==
LOC: EC 01:04 → 5NMEDONC 03:40
PROVIDERS: ADMIT Hospitalist; ATTEND Hospitalist
DX: F10.129 Alcohol abuse with intoxication, unspecified (principal); Y90.8 Blood alcohol level of 240 mg/100 ml or more; I10 Essential (primary) hypertension; G89.29 Other chronic pain; M54.50 Low back pain, unspecified; K70.10 Alcoholic hepatitis without ascites; F17.210 Nicotine dependence, cigarettes, uncomplicated; F40.240 Claustrophobia; F41.9 Anxiety disorder, unspecified; Z86.010 Personal history of colon polyps
CPT/HCPCS: 96372; 96374; 99285; 36415; 80053; 85025; 80320; G0378; J2060; J3411

== ENCOUNTER 2023-12-09 01:36 | Inpatient (IN) | payer BC, OTHER ==
[2023-12-09 03:35] LABS: Basophils # (A) 0.2 k/uL (0-0.2); Basophils % (A) 2 %; Eosinophils # (A) 0.8 k/uL (0-0.7); Eosinophils % (A) 8 %; HCT 54.4 % (34.0-46.0); Lymphocytes # (A) 2.9 k/uL (1.0-4.8); Lymphocytes % (A) 27 %; MCH 31.9 pg (25.0-35.0); MCHC 31.7 g/dL (31.0-37.0); MCV 100.6 fL (80.0-100.0); Macrocytosis Slight; Mean Platelet Volume 7.6; Monocytes # (A) 0.4 k/uL (0-1.0); Monocytes % (A) 4 %; Neutrophils # (A) 6.4 k/uL (1.3-7.7); Neutrophils % (A) 59 %; Platelet Count 304 k/uL (150-450); RBC 5.41 m/uL (3.80-5.40); RDW 13.5 % (11.5-15.5); WBC 10.8 k/uL (3.8-10.6)
[2023-12-09 03:56] LABS: HGB 17.2 gm/dL (11.4-16.0)
[2023-12-09 04:17] LABS: ALT 16 U/L (4-34); AST 28 U/L (14-36); African American GFR (CKD) >90 (>60 ml/min/1.73 sqM); Albumin 3.5 g/dL (3.5-5.0); Alkaline Phosphatase 71 U/L (38-126); Anion Gap 8 mmol/L; Blood Urea Nitrogen 7 mg/dL (7-17); Calcium 8.1 mg/dL (8.4-10.2); Carbon Dioxide 24 mmol/L (22-30); Chloride 109 mmol/L (98-107); Glucose 104 mg/dL (74-99); Non-African American GFR(CKD) >90 (>60 ml/min/1.73 sqM); Potassium 4.5 mmol/L (3.5-5.1); Sodium 141 mmol/L (137-145); Total Bilirubin 0.5 mg/dL (0.2-1.3); Total Protein 6.1 g/dL (6.3-8.2)
[2023-12-09] MEDS: KETOROLAC 15 MG/ML 1 ML VIAL IVP STA (04:22)
[2023-12-09] MEDS: hydrOXYzine HCL 25 MG TAB PO STA (04:23)
[2023-12-09 04:33] LABS: Alcohol 339 mg/dL
--- NOTE | 2023-12-09 05:36 | ED ---
Alcohol HPI - General Chief Complaint: Alcohol Stated Complaint: ETOH Time Seen by Provider: 12/09/23 01:40 Source: EMS Mode of arrival: EMS - History of Present Illness Initial Comments: 63-year-old female with history of daily alcohol abuse who presents emergency department with alcohol intoxication. Patient reports that she called EMS. She has been here multiple times for the same complaint. When I evaluate the patient she states that she came in because of a rash on her buttocks. She reports that it just started. Patient not a great historian due to her current intoxication therefore HPI is limited. She denies any falls - Related Data Home Medications Medication Instructions Recorded Confirmed Vitamin D3(Unknown Dose) 1 tab PO DAILY 08/30/23 12/09/23 Multivitamins, Thera [Multivitamin 1 tab PO DAILY 11/27/23 12/09/23 (formulary)] Folic Acid-Vit B Complex-Vit C 1 cap PO DAILY 12/09/23 12/09/23 [Nephrocaps] Previous Rx's Medication Instructions Recorded Magnesium Oxide [Mag-Ox] 400 mg PO DAILY #15 tab 11/29/23 Nystatin 100,000 Unit/gm Powd 1 applic TOPICAL TID #1 each 11/29/23 [Mycostatin Powder] Nystatin 100,000Unit/gm Cream 1 applic TOPICAL BID each 11/29/23 [Mycostatin Cream] Pantoprazole [Protonix] 40 mg PO AC-BRKFST #30 tab 11/29/23 Thiamine [Vitamin B-1] 100 mg PO DAILY #30 tab 11/29/23 Triamcinolone 0.1% Cream [Kenalog 1 applic TOPICAL BID #1 each 11/29/23 0.1% Cream] chlordiazePOXIDE HCl [Librium] 10 mg PO TID #6 capsule 12/12/23 methylPREDNISolone Dose Pack 4 mg PO DIRECTED #21 tab 12/12/23 [Medrol Dose Pack] Allergies Allergy/AdvReac Type Severity Reaction Status Date / Time shellfish derived [Shellfish] Allergy Severe Dyspnea Verified 12/09/23 07:38 iodine Allergy Rash/Hives Verified 12/09/23 07:38 Sulfa (Sulfonamide Allergy Rash/Hives Verified 12/09/23 07:40 Antibiotics) Review of Systems ROS Statement: Those systems with pertinent positive or pertinent negative responses have been documented in the HPI. ROS Other: All systems not noted in ROS Statement are negative. 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 History of Any Multi-Drug Resistant Organisms: None Reported Past Surgical History: Back Surgery Additional Past Surgical History / Comment(s): Cervical surgery at [facility] d/t injury, colonoscopies/benign polypectomy Past Anesthesia/Blood Transfusion Reactions: No Reported Reaction, Motion Sickness Additional Past Anesthesia/Blood Transfusion Reaction / Comment(s): PT has clausterphobia. Past Psychological History: Anxiety Smoking Status: Current some day smoker Past Alcohol Use History: Abuse, Daily Past Drug Use History: None Reported - Past Family History Mother Family Medical History: Cancer Additional Family Medical History / Comment(s): Mother of melanoma Father Family Medical History: No Reported History Additional Family Medical History / Comment(s): Father is healthy General Exam General appearance: alert, appears intoxicated Head exam: Present: atraumatic, normocephalic, normal inspection Eye exam: Present: normal appearance, PERRL, EOMI. Absent: scleral icterus, conjunctival injection, periorbital swelling ENT exam: Present: normal exam, mucous membranes moist Neck exam: Present: normal inspection. Absent: tenderness, meningismus, lymphadenopathy Respiratory exam: Present: normal lung sounds bilaterally. Absent: respiratory distress, wheezes, rales, rhonchi, stridor Cardiovascular Exam: Present: regular rate, normal rhythm, normal heart sounds. Absent: systolic murmur, diastolic murmur, rubs, gallop, clicks GI/Abdominal exam: Present: soft, normal bowel sounds. Absent: distended, tenderness, guarding, rebound, rigid Extremities exam: Present: normal inspection, full ROM, normal capillary refill. Absent: tenderness, pedal edema, joint swelling, calf tenderness Back exam: Present: normal inspection Neurological exam: Present: alert, altered, CN II-XII intact Psychiatric exam: Present: normal affect, normal mood Skin exam: Present: warm, dry, rash (significant rash to bilateral buttocks - skin appears macerated. no blistering. no crepitance) Course Vital Signs 12/09/23 12/09/23 12/09/23 01:37 03:25 04:27 Temperature 97.9 F Pulse Rate 88 96 96 Respiratory 18 18 16 Rate Blood Pressure 98/63 103/68 106/70 O2 Sat by Pulse 96 97 96 Oximetry 12/09/23 06:58 Temperature Pulse Rate 87 Respiratory 18 Rate Blood Pressure 116/74 O2 Sat by Pulse 96 Oximetry Medical Decision Making - Medical Decision Making Was pt. sent in by a medical professional or institution (, PA, TURNTABLE OPERATOR, urgent care, hospital, or fdc...) When possible be specific @ -No Did you speak to anyone other than the patient for history (EMS, parent, family, police, friend...)? What history was obtained from this source @ -Spoke with EMS Did you review nursing and triage notes (agree or disagree)? Why? @ -I reviewed and agree with nursing and triage notes Were old charts reviewed (outside hosp., previous admission, EMS record, old EKG, old radiological studies, urgent care reports/EKG's, fdc records)? Report findings @ -I reviewed patient's discharge summary from November 29 Differential Diagnosis (chest pain, altered mental status, abdominal pain women, abdominal pain men, vaginal bleeding, weakness, fever, dyspnea, syncope, headache, dizziness, GI bleed, back pain, seizure, CVA, palpatations, mental health, musculoskeletal)? @ -Differential Altered Mental Status: Hypoglycemia, DKA, hypercapnia, ETOH, overdose, CO poisoning, trauma, myxedema coma, HTN encephalopathy, infection, encephalitis, psychosis, intercranial hemorrhage, hepatic encephalopathy, meningitis, CVA, this is not meant to be an all-inclusive list EKG interpreted by me (3pts min.). @ -Not done X-rays interpreted by me (1pt min.). @ -None done CT interpreted by me (1pt min.). @ -None done U/S interpreted by me (1pt. min.). @ -None done What testing was considered but not performed or refused? (CT, X-rays, U/S, labs)? Why? @ -None What meds were considered but not given or refused? Why? @ -None Did you discuss the management of the patient with other professionals (professionals i.e. , PA, TURNTABLE OPERATOR, lab, RT, psych nurse, group social worker, group practice pediatrician, teacher, eeo officer, case fitter)? Give summary @ -Spoke with [facility] for admission Was smoking cessation discussed for >3mins.? @ -No Was critical care preformed (if so, how long)? @ -No Were there social determinants of health that impacted care today? How? (Homelessness, low income, unemployed, alcoholism, drug addiction, tr ansportation, low edu. Level, literacy, decrease access to med. care, ch[facility], rehab)? @ -No Was there de-escalation of care discussed even if they declined (Discuss DNR or withdrawal of care, Hospice)? DNR status @ -No What co-morbidities impacted this encounter? (DM, HTN, Smoking, COPD, CAD, Cancer, CVA, ARF, Chemo, Hep., AIDS, mental health diagnosis, sleep apnea, morbid obesity)? @ -Alcohol abuse Was patient admitted / discharged? Hospital course, mention meds given and route, prescriptions, significant lab abnormalities, going to OR and other pertinent info. @ -Upon arrival patient was seen and evaluated in room 8. Thorough history and physical exam was performed. IV access was established. Laboratory studies are conducted. Patient was given Vistaril as she states that the rash is very itchy. Laboratory studies demonstrate that her alcohol level is 339. Recommended admission for alcohol intoxication as well as for rash. I will consult Dr. Begum for help with rash management. Patient agreeable to admission Undiagnosed new problem with uncertain prognosis? @ -No Drug Therapy requiring intensive monitoring for toxicity (Heparin, Nitro, Insulin, Cardizem)? @ -No Were any procedures done? @ -No Diagnosis/symptom? @ -Acute alcohol intoxication, emaciated skin Acute, or Chronic, or Acute on Chronic? @ -Acute Uncomplicated (without systemic symptoms) or Complicated (systemic symptoms)? @ -Complicated Side effects of treatment? @ -No Exacerbation, Progression, or Severe Exacerbation? @ -No Poses a threat to life or bodily function? How? (Chest pain, USA, ND, pneumonia, PE, COPD, DKA, ARF, appy, cholecystitis, CVA, Diverticulitis, Homicidal, Suicidal, threat to staff... and all critical care pts) @ -No - Lab Data Result diagrams: 12/11/23 06:26 12/11/23 06:26 Lab Results 12/09/23 12/09/23 Range/Units 03:07 03:07 WBC 10.8 H (3.8-10.6) k/uL RBC 5.41 H (3.80-5.40) m/uL Hgb 17.2 H D (11.4-16.0) gm/dL Hct 54.4 H (34.0-46.0) % MCV 100.6 H (80.0-100.0) fL MCH 31.9 (25.0-35.0) pg MCHC 31.7 (31.0-37.0) g/dL RDW 13.5 (11.5-15.5) % Plt Count 304 (150-450) k/uL MPV 7.6 Neutrophils % 59 % Lymphocytes % 27 % Monocytes % 4 % Eosinophils % 8 % Basophils % 2 % Neutrophils # 6.4 (1.3-7.7) k/uL Lymphocytes # 2.9 (1.0-4.8) k/uL Monocytes # 0.4 (0-1.0) k/uL Eosinophils # 0.8 H (0-0.7) k/uL Basophils # 0.2 (0-0.2) k/uL Macrocytosis Slight Sodium 141 (137-145) mmol/L Potassium 4.5 (3.5-5.1) mmol/L Chloride 109 H (98-107) mmol/L Carbon Dioxide 24 (22-30) mmol/L Anion Gap 8 mmol/L BUN 7 (7-17) mg/dL Creatinine 0.47 L (0.52-1.04) mg/dL Est GFR (CKD-EPI)AfAm >90 (>60 ml/min/1.73 sqM) Est GFR (CKD-EPI)NonAf >90 (>60 ml/min/1.73 sqM) Glucose 104 H (74-99) mg/dL Calcium 8.1 L (8.4-10.2) mg/dL Total Bilirubin 0.5 (0.2-1.3) mg/dL AST 28 (14-36) U/L ALT 16 (4-34) U/L Alkaline Phosphatase 71 (38-126) U/L Total Protein 6.1 L (6.3-8.2) g/dL Albumin 3.5 (3.5-5.0) g/dL Serum Alcohol 339 H* mg/dL Disposition Clinical Impression: Alcohol intoxication, Rash Disposition: ADMITTED IP TO THIS [facility] Condition: Serious Is patient prescribed a controlled substance at d/c from ED?: No Time of Disposition: 05:36 Decision to Admit Reason: Admit from EC Decision Date: 12/09/23 Decision Time: 05:36
[2023-12-09] MEDS ORDERED: NALOXONE 0.4 MG/ML 1 ML VIAL IV PRN (05:43)
[2023-12-09] MEDS: SODIUM CHLORIDE 0.9% 1,000 ML IV SCH (06:58)
[2023-12-09] MEDS ORDERED: LORazepam 2 MG/ML INJ IV PRN (09:00)
[2023-12-09] MEDS: CHOLECALCIFEROL 25 MCG (1000 IU) TABLET PO SCH (12:36)
[2023-12-09] MEDS: MAGNESIUM OXIDE 400 MG TAB PO SCH (12:36)
[2023-12-09] MEDS: MULTIVITAMINS, THERA 1 EACH TAB PO SCH (12:36)
[2023-12-09] MEDS: THIAMINE 100 MG TAB PO SCH (12:36)
[2023-12-09] MEDS: PANTOPRAZOLE 40 MG TABLET PO SCH (12:36)
[2023-12-09] MEDS: FOLIC ACID-VIT B COMPLEX-VIT C 1 CAP PO SCH (12:42)
[2023-12-09] MEDS: NYSTATIN 100,000UNIT/GM CREAM 30 GM TUBE TOPICAL SCH (14:51)
[2023-12-09] MEDS: TRIAMCINOLONE 0.1% CREAM 80 GM TUBE TOPICAL SCH (14:51)
[2023-12-09] MEDS: NYSTATIN 100,000 UNIT/GM POWD 15 GM TOPICAL SCH (14:51)
[2023-12-09] MEDS: diphenhydrAMINE 50 MG/ML 1 ML VIAL IVP STA (15:10)
[2023-12-09] MEDS: LORazepam 1 MG TAB PO PRN (16:37)
[2023-12-09] MEDS: methylPREDNISolone SOD SUCCI 125 MG/2 ML VIAL IV SCH (18:10)
[2023-12-09] MEDS: KETOROLAC 15 MG/ML 1 ML VIAL IVP PRN (20:39)
[2023-12-09] MEDS: HEPARIN SODIUM,PORCINE 5,000 UNIT/ML 1 ML VIAL SQ SCH (20:39)
[2023-12-09] MEDS: diphenhydrAMINE 50 MG/ML 1 ML VIAL IVP PRN (20:39)
--- NOTE | 2023-12-09 22:20 | HP ---
HISTORY AND PHYSICAL CHIEF COMPLAINT: EtOH and skin rash. HISTORY OF PRESENT ILLNESS: This is a 63-year-old woman with a past medical history of multiple medical problems, admitted with significant alcohol intoxication with alcohol 339. The patient also has significant rash on the legs and posterior gluteal region. The patient has significant itching. No chest pain. No palpitations. No fever. PAST MEDICAL HISTORY: Reviewed include hypertension, DJD. Rest of the history and rest of the chart is also noted. HOME MEDICATIONS: Reviewed include triamcinolone, dose and rest of medications noted. ALLERGIES: Shellfish. Rest of allergies noted. FAMILY HISTORY: History of melanoma. SOCIAL HISTORY: Alcohol, smoking. REVIEW OF SYSTEMS: A 14-point review is negative except as mentioned earlier. PHYSICAL EXAMINATION: VITAL SIGNS: Pulse is 96, blood pressure 106/76, respirations 16 HEENT: Conjunctivae normal. NECK: No JVD. CARDIOVASCULAR: S1, S2. RESPIRATIONS: Breath sounds diminished at the bases. A few scattered rhonchi. ABDOMEN: Soft, nontender. LEGS: No edema. NERVOUS SYSTEM: No focal deficits. Minimal tremors present. SKIN: Diffuse rash present in both distal legs and as well as posterior buttocks and as well as upper limbs, scattered. JOINTS: No active deforming arthropathy. LABORATORY DATA: WBC 10.8. ASSESSMENT: 1. Acute alcohol intoxication. 2. Diffuse skin rash, rule out scabies. 3. Cellulitis, possibly. 4. Hypertension. 5. Degenerative joint disease. 6. History of fall. 7. Anxiety. 8. History of nicotine dependence. RECOMMENDATIONS AND DISCUSSION: This is a 63-year-old woman, who presented with multiple complex medical issues, we will monitor the patient closely. We will initiate empiric antibiotics, CIWA protocol. Otherwise, I would also get Infectious Disease evaluation, scabies treatment empirically. Prognosis guarded. Further recommendations to follow. See orders for further details. MMODL / IJN: [id number] /
[2023-12-09] MEDS: LORazepam 2 MG/ML INJ IV PRN (23:10)
--- NOTE | 2023-12-09 23:51 | P.CONS ---
History of Present Illness - Reason for Consult Consult date: 12/09/23 All over rash questionable scabies Requesting physician: Autumn Harvey - Chief Complaint Rash to the gluteal area with pain x days - History of Present Illness Patient is a 63-year-old female with a past medical history significant for hypertension osteoarthritis in this patient who did have a significant history of alcoholism and multiple admission in the hospital for withdrawal patient presenting to the hospital complaining of a rash on her buttocks with the patient mention has for couple of weeks now patient complaining of burning pain to the rash area moderate intensity without radiation and the patient also have a rash to the upper and lower extremity and the trunk area however the patient has significant itching to those rash area the patient denies having any sores in her mouth or difficulty swallowing and did not recall taking any new medication and has not been running any fever patient on presentation to the hospital was afebrile and no fever have recorded subsequently patient was not tachycardic hypotensive or hypoxic patient did have white count of 10.8 creatinine was 0.47 serum alcohol was 339 liver enzymes are normal patient was admitted to the hospital infectious disease was consulted for further management of antibiotic therapy and rash Review of Systems Positive point and negatives has been mentioned in the HPI, complete review of systems was performed and all other systems are negative Past Medical History Past Medical History: Hypertension, Osteoarthritis (OA) Additional Past Medical History / Comment(s): Fall September 2019 with neck injury/L arm weak/decreased sensation and weakness to L leg-sent to [facility] and had cervical surgery, chronic cervical/L shoulder pain since surgery, chronic low back pain for years, ETOH abuse-pt states she has had withdrawals/shaking/weakness/nausea/one seizure long ago, alcoholic hepatitis, 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 History of Any Multi-Drug Resistant Organisms: None Reported Past Surgical History: Back Surgery Additional Past Surgical History / Comment(s): Cervical surgery at [facility] d/t injury, colonoscopies/benign polypectomy Past Anesthesia/Blood Transfusion Reactions: No Reported Reaction, Motion Sickness Additional Past Anesthesia/Blood Transfusion Reaction / Comm: PT has clausterphobia. Past Psychological History: Anxiety Smoking Status: Current some day smoker Past Alcohol Use History: Abuse, Daily Past Drug Use History: None Reported - Past Family History Mother Family Medical History: Cancer Additional Family Medical History / Comment(s): Mother of melanoma Father Family Medical History: No Reported History Additional Family Medical History / Comment(s): Father is healthy Medications and Allergies Home Medications Medication Instructions Recorded Confirmed Type Vitamin D3(Unknown Dose) 1 tab PO DAILY 08/30/23 12/09/23 History Multivitamins, Thera [Multivitamin 1 tab PO DAILY 11/27/23 12/09/23 History (formulary)] Magnesium Oxide [Mag-Ox] 400 mg PO DAILY #15 tab 11/29/23 12/09/23 Rx Nystatin 100,000 Unit/gm Powd 1 applic TOPICAL TID #1 each 11/29/23 12/09/23 Rx [Mycostatin Powder] Nystatin 100,000Unit/gm Cream 1 applic TOPICAL BID each 11/29/23 12/09/23 Rx [Mycostatin Cream] Pantoprazole [Protonix] 40 mg PO AC-BRKFST #30 tab 11/29/23 12/09/23 Rx Thiamine [Vitamin B-1] 100 mg PO DAILY #30 tab 11/29/23 12/09/23 Rx Triamcinolone 0.1% Cream [Kenalog 1 applic TOPICAL BID #1 each 11/29/23 12/09/23 Rx 0.1% Cream] Folic Acid-Vit B Complex-Vit C 1 cap PO DAILY 12/09/23 12/09/23 History [Nephrocaps] chlordiazePOXIDE HCl [Librium] 10 mg PO TID #6 capsule 12/12/23 Rx methylPREDNISolone Dose Pack 4 mg PO DIRECTED #21 tab 12/12/23 Rx [Medrol Dose Pack] Allergies Allergy/AdvReac Type Severity Reaction Status Date / Time shellfish derived [Shellfish] Allergy Severe Dyspnea Verified 12/09/23 07:38 iodine Allergy Rash/Hives Verified 12/09/23 07:38 Sulfa (Sulfonamide Allergy Rash/Hives Verified 12/09/23 07:40 Antibiotics) Physical Exam Vitals: Vital Signs Temp Pulse Pulse Resp BP BP Pulse Ox 12/09/23 08:20 98.4 F 95 16 110/70 98 12/09/23 06:58 87 18 116/74 96 12/09/23 04:27 96 16 106/70 96 03/29/24 03:25 96 18 103/68 97 12/09/23 01:37 97.9 F 88 18 98/63 96 Intake and Output 12/08/23 12/09/23 12/09/23 22:59 06:59 14:59 Intake Total 480 Balance 480 Intake: Oral 480 Other: # Voids 1 # Bowel Movements 1 Weight 72.575 kg GENERAL DESCRIPTION: Middle-aged female lying in bed, no distress. No tachypnea or accessory muscle of respiration use. HEENT: Shows Pallor , no scleral icterus. Oral mucous membrane is dry. No pharyngeal erythema or thrush NECK: Trachea central, no thyromegaly. LUNGS: Unlabored breathing. Clear to auscultation anteriorly. No wheeze or crackle. HEART: S1, S2, regular rate and rhythm. No loud murmur ABDOMEN: Soft, no tenderness , guarding or rigidity, no organomegaly EXTREMITIES: No edema of feet. SKIN: Extensive excoriation to bilateral gluteal area and macular rash to the upper lower extremity NEUROLOGICAL: The patient is awake, alert, oriented x3, mood and affect normal. Results CBC & Chem 7: 12/11/23 06:26 12/11/23 06:26 Labs: Abnormal Lab Results - Last 24 Hours (Table) 12/09/23 12/09/23 Range/Units 03:07 03:07 WBC 10.8 H (3.8-10.6) k/uL RBC 5.41 H (3.80-5.40) m/uL Hgb 17.2 H D (11.4-16.0) gm/dL Hct 54.4 H (34.0-46.0) % MCV 100.6 H (80.0-100.0) fL Eosinophils # 0.8 H (0-0.7) k/uL Chloride 109 H (98-107) mmol/L Creatinine 0.47 L (0.52-1.04) mg/dL Glucose 104 H (74-99) mg/dL Calcium 8.1 L (8.4-10.2) mg/dL Total Protein 6.1 L (6.3-8.2) g/dL Serum Alcohol 339 H* mg/dL Assessment and Plan (1) Rash Status: Acute Code(s): R21 - RASH AND OTHER NONSPECIFIC SKIN ERUPTION SNOMED Code(s): 285569266 Plan: 1patient presented hospital extensive rash to the bilateral gluteal area possibly related to the significant maceration could be related to the urine incontinence and also have extensive rash to the upper and lower extremities questionably drug rash however the patient denies having taking any new medication, clinically doubt scabies patient denies having any significant itching associated with this rash 2-agree with Mycolog cream to the extensive rash to the bilateral gluteal area and no need for antibiotic therapy 3-we will give a short course of IV Solu-Medrol and see response We will follow on clinical condition and cultures to further adjust medication if needed Thank you for this consultation we will follow the patient along with you Dictation was produced using [employer] dictation software. please excuse any grammatical, word or spelling errors. Time with Patient: Greater than 30
[2023-12-10 09:45] LABS: BUN/Creat Ratio 17.25 Ratio (12.00-20.00); Blood Urea Nitrogen 6.9 mg/dL (9.0-27.0); Calcium 8.2 mg/dL (8.7-10.3); Carbon Dioxide 23.1 mmol/L (21.6-31.8); Chloride 99 mmol/L (96-109); Glucose 179 mg/dL (70-110); Potassium 4.1 mmol/L (3.5-5.5); Sodium 134 mmol/L (135-145)
[2023-12-10 10:03] LABS: Basophils # (A) 0.04 X 10*3/uL (0.00-0.10); Basophils % (A) 0.5 %; Eosinophils # (A) 1.41 X 10*3/uL (0.04-0.35); Eosinophils % (A) 18.2 %; HCT 41.4 % (37.2-46.3); HGB 14.1 g/dL (12.0-15.0); Lymphocytes # (A) 0.96 X 10*3/uL (0.90-5.00); Lymphocytes % (A) 12.4 %; MCH 32.4 pg (27.0-32.0); MCHC 34.1 g/dL (32.0-37.0); MCV 95.2 FL (80.0-97.0); Mean Platelet Volume 9.9 FL (9.5-12.2); Monocytes # (A) 0.07 X 10*3/uL (0.20-1.00); Monocytes % (A) 0.9 %; NRBC Per 100 WBC 0 X 10*3/uL (0.00-0.01); Neutrophils # (A) 5.27 X 10*3/uL (1.80-7.70); Neutrophils % (A) 67.9 %; Platelet Count 203 X 10*3/uL (140-440); RBC 4.35 X 10*6/uL (4.10-5.20); RBC Morphology Normal (Normal); RDW 13.2 % (11.5-14.5); WBC 7.76 X 10*3/uL (4.50-10.00)
--- NOTE | 2023-12-10 16:47 | PN ---
PROGRESS NOTE DATE OF SERVICE: 12/10/2023 SUBJECTIVE: This is a 63-year-old woman, who was admitted with acute alcohol intoxication, also had significant skin lesion also. The patient is on empiric antibiotics. Doubt scabies per Infectious Disease. No chest pain. No palpitation. PHYSICAL EXAMINATION: VITAL SIGNS: Pulse is 87, blood pressure 151/76, and respirations 18. CHEST: Clear to auscultation. ABDOMEN: Soft. NERVOUS SYSTEM: Nonfocal. SKIN: Rash present. LABORATORY DATA: Noted. ASSESSMENT: 1. Acute alcohol intoxication. 2. Diffuse skin rash, possible cellulitis. 3. Hypertension. 4. Degenerative joint disease. 5. History of fall. 6. Anxiety. 7. History of nicotine dependence. RECOMMENDATIONS: Recommend to continue current management and continue symptomatic treatment, otherwise alcohol withdrawal symptom treatment. Repeat labs. Short course of steroids per Infectious Disease. Further recommendations to follow. MMODL / IJN: [id number] /
--- NOTE | 2023-12-10 17:10 | P.PN ---
Subjective Progress Note Date: 12/10/23 Principal diagnosis: Reason for follow-up is rash Patient is a 63-year-old female with a past medical history significant for hypertension osteoarthritis, alcoholism presented to hospital worsening rash to the bilateral gluteal as well as bilateral upper lower extremity. On today's evaluation that is 12/10/2023,the patient denies any fever or any chills, patient is breathing comfortably on room air, the patient denies chest pain shortness of breath and no significant cough, patient denies abdominal pain, no nausea vomiting or diarrhea. Mention the pain to the bilateral gluteal area has decreased in intensity. Patient white count is 7.76 creatinine 0.4 Objective - Vital Signs Vital signs: Vital Signs Temp 97.9 F 12/10/23 13:53 Pulse 79 12/10/23 13:53 Resp 18 12/10/23 13:53 BP 152/84 12/10/23 13:53 Pulse Ox 98 12/10/23 13:53 FiO2 Intake & Output 12/09/23 12/10/23 12/10/23 18:59 06:59 18:59 Intake Total 960 236 Balance 960 236 Weight 72.575 kg Intake: Oral 960 236 Other: # Voids 1 2 # Bowel Movements 1 2 - Exam GENERAL DESCRIPTION: Middle-aged female lying in bed in no distress RESPIRATORY SYSTEM: Unlabored breathing , decreased breath sounds at bases HEART: S1 S2 regular rate and rhythm , ABDOMEN: Soft , no tenderness EXTREMITIES: Lower extremity rash has decreased in intensity - Labs CBC & Chem 7: 12/10/23 04:06 12/10/23 04:06 Labs: Abnormal Lab Results - Last 24 Hours (Table) 12/10/23 12/10/23 Range/Units 04:06 04:06 MCH 32.4 H (27.0-32.0) pg Monocytes # 0.07 L (0.20-1.00) X 10*3/uL Eosinophils # 1.41 H (0.04-0.35) X 10*3/uL Sodium 134 L (135-145) mmol/L BUN 6.9 L (9.0-27.0) mg/dL Creatinine 0.4 L (0.6-1.5) mg/dL Glucose 179 H (70-110) mg/dL Calcium 8.2 L (8.7-10.3) mg/dL Assessment and Plan (1) Rash Current Visit: Yes Status: Acute Code(s): R21 - RASH AND OTHER NONSPECIFIC SKIN ERUPTION SNOMED Code(s): 373361413 Plan: 1patient presented hospital extensive rash to the bilateral gluteal area possibly related to the significant maceration could be related to the urine incontinence and also have extensive rash to the upper and lower extremities questionably drug rash however the patient denies having taking any new medication, clinically doubt scabies patient denies having any significant itching associated with this rash 2-patient to continue with with Mycolog cream to the extensive rash to the bilateral gluteal area and no need for antibiotic therapy, along with Solu- Medrol and monitor patient closely off antibiotic Dictation was produced using [employer] dictation software. please excuse any grammatical, word or spelling errors. Time with Patient: Less than 30
--- NOTE | 2023-12-10 20:09 | XR ---
EXAMINATION TYPE: XR chest 1V portable DATE OF EXAM: 12/10/2023 COMPARISON: 08/15/2023 INDICATION: CHF TECHNIQUE: Single frontal view of the chest is obtained. FINDINGS: The heart size is normal. The pulmonary vasculature is normal. The lungs are clear. IMPRESSION: 1. No acute pulmonary process.
[2023-12-10 20:27] VITALS: RESP 16
[2023-12-11 07:49] LABS: Basophils % (A) 0 %; Eosinophils % (A) 0 %; HCT 45.4 % (34.0-46.0); Lymphocytes # (A) 1.7 k/uL (1.0-4.8); Lymphocytes % (A) 15 %; MCV 100.1 fL (80.0-100.0); Mean Platelet Volume 8.4; Monocytes # (A) 0.4 k/uL (0-1.0); Monocytes % (A) 3 %; Neutrophils # (A) 9.5 k/uL (1.3-7.7); Neutrophils % (A) 82 %; Platelet Count 212 k/uL (150-450); RBC 4.54 m/uL (3.80-5.40); RDW 13.3 % (11.5-15.5); WBC 11.7 k/uL (3.8-10.6)
[2023-12-11 08:07] LABS: ALT 14 U/L (4-34); AST 23 U/L (14-36); African American GFR (CKD) >90 (>60 ml/min/1.73 sqM); Albumin 3.6 g/dL (3.5-5.0); Albumin/Globulin Ratio 1.2; Alkaline Phosphatase 62 U/L (38-126); Anion Gap 9 mmol/L; Blood Urea Nitrogen 12 mg/dL (7-17); Calcium 8.6 mg/dL (8.4-10.2); Carbon Dioxide 23 mmol/L (22-30); Chloride 103 mmol/L (98-107); Globulin 2.9 g/dL; Glucose 135 mg/dL (74-99); Non-African American GFR(CKD) >90 (>60 ml/min/1.73 sqM); Potassium 3.5 mmol/L (3.5-5.1); Sodium 135 mmol/L (137-145); Total Bilirubin 0.7 mg/dL (0.2-1.3); Total Protein 6.5 g/dL (6.3-8.2)
--- NOTE | 2023-12-11 16:38 | P.PN ---
Subjective Progress Note Date: 12/11/23 Principal diagnosis: Reason for follow-up is rash Patient is a 63-year-old female with a past medical history significant for hypertension osteoarthritis, alcoholism presented to hospital worsening rash to the bilateral gluteal as well as bilateral upper lower extremity. On today's evaluation that is 12/11/2023,the patient remains to be afebrile, patient is on room air not requiring supplemental oxygen and denies any shortness of breath no chest pain or cough.Patient denies having any nausea or vomiting, no abdominal pain and no diarrhea still complaining of pain to bilateral gluteal area slightly decreased no new rash has been noticed. Patient white count 11.7, creatinine 0.34 Objective - Vital Signs Vital signs: Vital Signs Temp 97.9 F 12/11/23 07:00 Pulse 70 12/11/23 07:00 Resp 16 12/11/23 08:00 BP 157/88 12/11/23 07:00 Pulse Ox 98 12/11/23 07:00 FiO2 Intake & Output 12/10/23 12/11/23 12/11/23 18:59 06:59 18:59 Intake Total 236 118 Balance 236 118 Intake: Oral 236 118 Other: # Voids 2 2 # Bowel Movements 2 - Exam GENERAL DESCRIPTION: Middle-aged female lying in bed in no distress RESPIRATORY SYSTEM: Unlabored breathing , decreased breath sounds at bases HEART: S1 S2 regular rate and rhythm , ABDOMEN: Soft , no tenderness EXTREMITIES: Lower extremity rash has decreased in intensity - Labs CBC & Chem 7: 12/11/23 06:26 12/11/23 06:26 Labs: Abnormal Lab Results - Last 24 Hours (Table) 12/11/23 12/11/23 Range/Units 06:26 06:26 WBC 11.7 H (3.8-10.6) k/uL MCV 100.1 H (80.0-100.0) fL Neutrophils # 9.5 H (1.3-7.7) k/uL Sodium 135 L (137-145) mmol/L Creatinine 0.34 L (0.52-1.04) mg/dL Glucose 135 H (74-99) mg/dL Assessment and Plan (1) Rash Current Visit: Yes Status: Acute Code(s): R21 - RASH AND OTHER NONSPECIFIC SKIN ERUPTION SNOMED Code(s): 755064866 Plan: 1patient presented hospital extensive rash to the bilateral gluteal area possibly related to the significant maceration could be related to the urine incontinence and also have extensive rash to the upper and lower extremities questionably drug rash however the patient denies having taking any new medication, clinically doubt scabies patient denies having any significant itching associated with this rash 2-patient currently being treated with Mycolog cream to the extensive rash to the bilateral gluteal area along with Solu-Medrol and monitor patient closely off antibiotic 3-mild leukocytosis likely steroid related Dictation was produced using [employer] dictation software. please excuse any grammatical, word or spelling errors. Time with Patient: Less than 30
--- NOTE | 2023-12-12 01:14 | PN ---
PROGRESS NOTE DATE OF SERVICE: 12/11/2023 SUBJECTIVE: This 63-year-old woman was admitted with acute alcohol intoxication, also had extensive cellulitis. No chest pain. No palpitations. No fever. PHYSICAL EXAMINATION: VITAL SIGNS: Pulse 70, blood pressure 157/80, respirations 16. CHEST: Clear to auscultation. ABDOMEN: Soft. SKIN: Diffuse rash present. LABORATORY DATA: Reviewed. ASSESSMENT: 1. Acute alcohol intoxication. 2. Diffuse skin rash, possible cellulitis. 3. Hypertension. 4. Degenerative joint disease. 5. History of fall. 6. Anxiety. 7. History of nicotine dependence. RECOMMENDATIONS: Recommend to continue current management and continue symptomatic treatment otherwise at this time. I would recommend to continue the antibiotics. CIWA protocol. Possible discharge in the next 24 hours. Closely follow with Infectious Disease. Further recommendations to follow. MMODL / IJN: [id number] /
[2023-12-12 10:33] VITALS: BP 146/86; PULSE 66; TEMP 97.7
--- NOTE | 2023-12-13 14:49 | P.PN ---
Subjective Progress Note Date: 12/12/23 Principal diagnosis: Reason for follow-up is rash Patient is a 63-year-old female with a past medical history significant for hypertension osteoarthritis, alcoholism presented to hospital worsening rash to the bilateral gluteal as well as bilateral upper lower extremity. On today's evaluation that is 12/12/2023, the patient continues to be afebrile, the patient is on room air and breathing comfortably, the Pt denies having any chest pain or cough, the patient denies having any abdominal pain no vomiting or any diarrhea, patient mention improvement to the discomfort to bilateral gluteal area and no new rash No new labs obtained today Objective - Vital Signs Vital signs: Vital Signs Temp 97.7 F 12/12/23 07:00 Pulse 66 12/12/23 07:00 Resp 16 12/12/23 07:00 BP 146/86 12/12/23 07:00 Pulse Ox 96 12/12/23 07:00 FiO2 Intake & Output 12/11/23 12/12/23 12/12/23 18:59 06:59 18:59 Intake Total 298 240 Balance 298 240 Intake: Oral 298 240 Other: Voiding Method Toilet # Voids 4 2 # Bowel Movements 2 - Exam GENERAL DESCRIPTION: Middle-aged female lying in bed in no distress RESPIRATORY SYSTEM: Unlabored breathing , decreased breath sounds at bases HEART: S1 S2 regular rate and rhythm , ABDOMEN: Soft , no tenderness EXTREMITIES: Lower extremity rash has decreased in intensity - Labs CBC & Chem 7: 12/11/23 06:26 12/11/23 06:26 Assessment and Plan (1) Rash Status: Acute Code(s): R21 - RASH AND OTHER NONSPECIFIC SKIN ERUPTION SNOMED Code(s): 954098794 Plan: 1patient presented hospital extensive rash to the bilateral gluteal area possibly related to the significant maceration could be related to the urine incontinence and also have extensive rash to the upper and lower extremities questionably drug rash however the patient denies having taking any new medication, clinically doubt scabies patient denies having any significant itching associated with this rash 2-patient has shown clinical improvement advised to continue with the Mycolog cream and a tapering course of steroids on discharge Dictation was produced using [employer] dictation software. please excuse any grammatical, word or spelling errors. Time with Patient: Less than 30
--- NOTE | 2023-12-15 07:01 | P.DS ---
Providers Date of admission: 12/09/23 05:47 Expected date of discharge: 12/12/23 Attending physician: Radha Saldaña Consults: 12/09/23 13:07 Consult Physician Urgent Consulting Provider: Leo Begum Consult Reason/Comments: all over rash, ? scabies? Do you want consulting provider notified?: Yes Primary care physician: Stated None Hospital Course: Final diagnosis Acute alcohol intoxication Chronic alcohol abuse Diffuse rash, cellulitis ruled out on admission to bilateral groin wounds Noncompliance to medication and follow-up History of falls Degenerative joint disease Hypertension Anxiety History of nicotine dependence GI prophylaxis DVT prophylaxis Full code Discharge disposition Patient is being discharged in a stable condition with guarded prognosis to home. Patient will follow-up with Dr. Mccarty to establish in the outpatient setting upon discharge. Patient is to continue with home with Mycolog and steroid taper and close outpatient follow-up with infectious disease as scheduled. Total time taken is greater than 35 minutes. Hospital course This is a 63-year-old female who was recently admitted with acute alcohol intoxication along with significant diffuse skin rash being closely monitored. Patient maintained on CIWA protocol along with Librium taper and evaluated by infectious disease regarding the rash to the buttock area along with bilateral lower extremities and groin area. Patient to continue on Mycolog cream along with steroid taper and close outpatient follow-up with infectious disease outpatient. Patient does not have a primary care provider and resources were provided. Patient to follow-up with [facility] outpatient and strongly recommend inpatient rehab. Currently no reports of chest pain, shortness of breath, or palpitations. Patient is afebrile. No reports of nausea or vomiting and patient is tolerating diet. Patient will be discharged home today high risk for readmissions given patient's continued alcohol abuse and noncompliance today. To follow-up. Physical exam: Gen: This is a 63-year-old female who is awake, alert and oriented x 3, well- developed, elderly appearing, unkempt HEENT: Head is atraumatic, normocephalic. Pupils equal, round. Sclerae is anicteric. NECK: Supple. No JVD. No lymphadenopathy. No thyromegaly. LUNGS: Clear to auscultation. No wheezes or rhonchi. No intercostal retractions. HEART: Regular rate and rhythm. No murmur. ABDOMEN: Soft. Bowel sounds are present. No masses. No tenderness. EXTREMITIES: No pedal edema. No calf tenderness. NEUROLOGICAL: Patient is awake, alert and oriented x3. Cranial nerves 2 through 12 are grossly intact. Skin: Bilateral buttock and thigh along with groin region noted to have redness and irritation Please refer to medication reconciliation sheet for a list of medications. The impression and plan of care has been dictated by Autumn Harvey, Nurse Practitioner as directed. Dr. Piotr MD I have performed a history and examination and MDM of this patient, discussed the same with the dictator, and agree with the dictator's assessment and plan as written ,documented as a scribe. Based on total visit time, I have performed more than 50% of the visit. Patient Condition at Discharge: Fair Plan - Discharge Summary New Discharge Prescriptions: New methylPREDNISolone Dose Pack [Medrol Dose Pack] 4 mg PO DIRECTED #21 tab chlordiazePOXIDE HCl [Librium] 10 mg PO TID #6 capsule Continue Triamcinolone 0.1% Cream [Kenalog 0.1% Cream] 1 applic TOPICAL BID #1 each Folic Acid-Vit B Complex-Vit C [Nephrocaps] 1 cap PO DAILY Vitamin D3(Unknown Dose) 1 tab PO DAILY Multivitamins, Thera [Multivitamin (formulary)] 1 tab PO DAILY Magnesium Oxide [Mag-Ox] 400 mg PO DAILY #15 tab Nystatin 100,000Unit/gm Cream [Mycostatin Cream] 1 applic TOPICAL BID each Nystatin 100,000 Unit/gm Powd [Mycostatin Powder] 1 applic TOPICAL TID #1 each Pantoprazole [Protonix] 40 mg PO [facility] #30 tab Thiamine [Vitamin B-1] 100 mg PO DAILY #30 tab Discharge Medication List Vitamin D3(Unknown Dose) 1 tab PO DAILY 08/30/23 [History] Multivitamins, Thera [Multivitamin (formulary)] 1 tab PO DAILY 11/27/23 [History] Magnesium Oxide [Mag-Ox] 400 mg PO DAILY #15 tab 11/29/23 [Rx] Nystatin 100,000 Unit/gm Powd [Mycostatin Powder] 1 applic TOPICAL TID #1 each 11/29/23 [Rx] Nystatin 100,000Unit/gm Cream [Mycostatin Cream] 1 applic TOPICAL BID each 11/29/23 [Rx] Pantoprazole [Protonix] 40 mg PO AC-BRKFST #30 tab 11/29/23 [Rx] Thiamine [Vitamin B-1] 100 mg PO DAILY #30 tab 11/29/23 [Rx] Triamcinolone 0.1% Cream [Kenalog 0.1% Cream] 1 applic TOPICAL BID #1 each 11/29/23 [Rx] Folic Acid-Vit B Complex-Vit C [Nephrocaps] 1 cap PO DAILY 12/09/23 [History] chlordiazePOXIDE HCl [Librium] 10 mg PO TID #6 capsule 12/12/23 [Rx] methylPREDNISolone Dose Pack [Medrol Dose Pack] 4 mg PO DIRECTED #21 tab 12/12/23 [Rx] Follow up Appointment(s)/Referral(s): Xochilt Mccarty MD [STAFF PHYSICIAN] - 1 Week None,Stated [Primary Care Provider] - 1-2 days Leo Begum MD [STAFF PHYSICIAN] - 12/22/23 3:45 pm Activity/Diet/Wound Care/Special Instructions: Activity limited until follow-up Follow-up with primary care provider on discharge to establish Continue Librium taper and avoid all alcohol use and exposure Continue creams twice daily as instructed Continue steroid taper Follow-up with infectious disease outpatient in 1 to 2 weeks Avoid any itching and scratching of the areas and use Benadryl as needed Discharge/Stand Alone Forms: AA Meetings [facility], Who Do I Call?, Community Resources, Outpatient Counseling, Inp Substance Abuse Facilities, Personal Research Physicist, Area PCPs Discharge Disposition: HOME SELF-CARE
== END 2023-12-12 16:05 | disposition home or self-care (01) | DRG 897 ==
LOC: EC 01:36 → 6NMEDSUR 05:47 → OBSVTOIN 05:47 → 6NMEDSUR 06:45
PROVIDERS: ADMIT Hospitalist; ATTEND Hospitalist
PROC: HZ2ZZZZ Detoxification Services for Substance Abuse Treatment (ICD-10-PCS; principal; 2023-12-09)
DX: F10.229 Alcohol dependence with intoxication, unspecified (principal); L03.317 Cellulitis of buttock; R21 Rash and other nonspecific skin eruption; I10 Essential (primary) hypertension; M19.90 Unspecified osteoarthritis, unspecified site; F41.9 Anxiety disorder, unspecified; F17.210 Nicotine dependence, cigarettes, uncomplicated; Y90.8 Blood alcohol level of 240 mg/100 ml or more; Z87.19 Personal history of other diseases of the digestive system; Z91.81 History of falling; Z88.2 Allergy status to sulfonamides; Z91.041 Radiographic dye allergy status; Z91.199 Patient's noncompliance with other medical treatment and regimen due to unspecified reason
CPT/HCPCS: 36415; 71045; 80048; 80053; 80320; 85025; 96361; 96374; 99285

== ENCOUNTER 2023-12-17 00:37 | Emergency (ER) | payer BC, OTHER ==
[2023-12-17 02:42] VITALS: RESP 16
--- NOTE | 2023-12-17 03:20 | ED ---
Alcohol HPI - General Chief Complaint: Alcohol Stated Complaint: Rash on butt Time Seen by Provider: 12/17/23 01:29 Source: EMS Mode of arrival: EMS Limitations: no limitations - History of Present Illness Initial Comments: 63-year-old female presenting with chief complaint of rash. Patient has history of alcohol use disorder, normally drinks about a pint today. She has been drinking today, cannot tell me how much. She is complaining of a rash on her buttocks and thighs that has been there for several weeks. She was admitted to our facility recently and seen by Dr. Begum for this rash, she was treated with steroids and instructed to follow-up with him in the office. Patient also states "I think I have a UTI". She admits to some dysuria. No fever, chills, vomiting, abdominal pain, chest pain, difficulty breathing. - Related Data Home Medications Medication Instructions Recorded Confirmed Vitamin D3(Unknown Dose) 1 tab PO DAILY 08/30/23 12/09/23 Multivitamins, Thera [Multivitamin 1 tab PO DAILY 11/27/23 12/09/23 (formulary)] Folic Acid-Vit B Complex-Vit C 1 cap PO DAILY 12/09/23 12/09/23 [Nephrocaps] Previous Rx's Medication Instructions Recorded Magnesium Oxide [Mag-Ox] 400 mg PO DAILY #15 tab 11/29/23 Nystatin 100,000 Unit/gm Powd 1 applic TOPICAL TID #1 each 11/29/23 [Mycostatin Powder] Nystatin 100,000Unit/gm Cream 1 applic TOPICAL BID each 11/29/23 [Mycostatin Cream] Pantoprazole [Protonix] 40 mg PO AC-BRKFST #30 tab 11/29/23 Thiamine [Vitamin B-1] 100 mg PO DAILY #30 tab 11/29/23 Triamcinolone 0.1% Cream [Kenalog 1 applic TOPICAL BID #1 each 11/29/23 0.1% Cream] chlordiazePOXIDE HCl [Librium] 10 mg PO TID #6 capsule 12/12/23 methylPREDNISolone Dose Pack 4 mg PO DIRECTED #21 tab 12/12/23 [Medrol Dose Pack] Cephalexin [Keflex] 500 mg PO Q12HR 7 Days #14 cap 12/17/23 Allergies Allergy/AdvReac Type Severity Reaction Status Date / Time shellfish derived [Shellfish] Allergy Severe Dyspnea Verified 12/17/23 00:44 iodine Allergy Rash/Hives Verified 12/17/23 00:44 Sulfa (Sulfonamide Allergy Rash/Hives Verified 12/17/23 00:44 Antibiotics) Review of Systems ROS Statement: Those systems with pertinent positive or pertinent negative responses have been documented in the HPI. ROS Other: All systems not noted in ROS Statement are negative. 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 History of Any Multi-Drug Resistant Organisms: None Reported Past Surgical History: Back Surgery Additional Past Surgical History / Comment(s): Cervical surgery at [facility] d/t injury, colonoscopies/benign polypectomy Past Anesthesia/Blood Transfusion Reactions: No Reported Reaction, Motion Sick ness Additional Past Anesthesia/Blood Transfusion Reaction / Comment(s): PT has clausterphobia. Past Psychological History: Anxiety Smoking Status: Current some day smoker Past Alcohol Use History: Abuse, Daily, Heavy Past Drug Use History: None Reported - Past Family History Mother Family Medical History: Cancer Additional Family Medical History / Comment(s): Mother of melanoma Father Family Medical History: No Reported History Additional Family Medical History / Comment(s): Father is healthy General Exam Limitations: no limitations General appearance: alert, in no apparent distress, appears intoxicated Head exam: Present: atraumatic, normocephalic Eye exam: Present: normal appearance, EOMI Neck exam: Present: normal inspection Respiratory exam: Present: normal lung sounds bilaterally. Absent: respiratory distress, wheezes, rales, rhonchi, stridor Cardiovascular Exam: Present: regular rate, normal rhythm, normal heart sounds. Absent: systolic murmur, diastolic murmur, rubs, gallop, clicks Neurological exam: Present: alert (Intoxicated) Psychiatric exam: Present: normal affect, normal mood Skin exam: Present: rash (Patient has a patchy rash to the buttocks, lower abdomen, and thighs) Course Vital Signs 12/17/23 12/17/23 12/17/23 00:41 02:35 03:59 Pulse Rate 100 89 89 Respiratory 20 16 16 Rate Blood Pressure 122/82 107/67 104/60 O2 Sat by Pulse 96 94 L 95 Oximetry 12/17/23 12/17/23 05:19 05:38 Pulse Rate 82 82 Respiratory 16 16 Rate Blood Pressure 110/66 114/74 O2 Sat by Pulse 94 L 96 Oximetry Medical Decision Making - Medical Decision Making Was pt. sent in by a medical professional or institution (, PA, PHYSICAL THERAPY TEACHER, urgent care, hospital, or correction...) When possible be specific @ -No Did you speak to anyone other than the patient for history (EMS, parent, family, police, friend...)? What history was obtained from this source @ -No Did you review nursing and triage notes (agree or disagree)? Why? @ -I reviewed and agree with nursing and triage notes Were old charts reviewed (outside hosp., previous admission, EMS record, old EKG, old radiological studies, urgent care reports/EKG's, correction records)? Report findings @ -No old charts were reviewed Differential Diagnosis (chest pain, altered mental status, abdominal pain women, abdominal pain men, vaginal bleeding, weakness, fever, dyspnea, syncope, headache, dizziness, GI bleed, back pain, seizure, CVA, palpatations, mental health, musculoskeletal)? @ -Differential includes allergic reaction, infectious process, scabies, this is not an all-inclusive list EKG interpreted by me (3pts min.). @ -As above X-rays interpreted by me (1pt min.). @ -None done CT interpreted by me (1pt min.). @ -None done U/S interpreted by me (1pt. min.). @ -None done What testing was considered but not performed or refused? (CT, X-rays, U/S, labs)? Why? @ -None What meds were considered but not given or refused? Why? @ -None Did you discuss the management of the patient with other professionals (professionals i.e. , PA, PHYSICAL THERAPY TEACHER, lab, RT, psych nurse, long term care social worker, mechanical adjuster, teacher, loan officer assistant, director case)? Give summary @ -No Was smoking cessation discussed for >3mins.? @ -No Was critical care preformed (if so, how long)? @ -No Were there social determinants of health that impacted care today? How? (Homelessness, low income, unemployed, alcoholism, drug addiction, transportation, low edu. Level, literacy, decrease access to med. care, prison, rehab)? @ -No Was there de-escalation of care discussed even if they declined (Discuss DNR or withdrawal of care, Hospice)? DNR status @ -No What co-morbidities impacted this encounter? (DM, HTN, Smoking, COPD, CAD, Cancer, CVA, ARF, Chemo, Hep., AIDS, mental health diagnosis, sleep apnea, morbid obesity)? @ -Alcohol use disorder Was patient admitted / discharged? Hospital course, mention meds given and route, prescriptions, significant lab abnormalities, going to OR and other pertinent info. @ -63-year-old female presenting chief complaint of rash. Patient has been drinking alcohol today, breath alcohol level is 0.054. Rashes examined, this is a patchy rash to the thighs and lower trunk. She has been seen by Dr. Begum for this rash during her last admission and was supposed to follow-up with him in the office. Does not appear infectious in nature. She is having no difficulty breathing or swallowing. Urine shows 9 WBCs and positive nitrites, patient will be treated for UTI with Keflex. Educated on today's findings and treatment plan. Discharged home. Follow-up with PCP. Report back to ER with any new or worsening symptoms. Discussed return parameters and answered all questions. Patient conveyed verbal understanding and agreed to the plan. I discussed this case in detail with my attending Dr. Preciado Undiagnosed new problem with uncertain prognosis? @ -No Drug Therapy requiring intensive monitoring for toxicity (Heparin, Nitro, Ins ulin, Cardizem)? @ -No Were any procedures done? @ -No Diagnosis/symptom? @ -Alcohol intoxication, rash, UTI Acute, or Chronic, or Acute on Chronic? @ -Acute Uncomplicated (without systemic symptoms) or Complicated (systemic symptoms)? @ -Uncomplicated Side effects of treatment? @ -No Exacerbation, Progression, or Severe Exacerbation? @ -No Poses a threat to life or bodily function? How? (Chest pain, USA, DC, pneumonia, PE, COPD, DKA, ARF, appy, cholecystitis, CVA, Diverticulitis, Homicidal, Suicidal, threat to staff... and all critical care pts) @ -Low likelihood - Lab Data Lab Results 12/17/23 Range/Units 05:23 Urine Color Colorless Urine Appearance Cloudy H (Clear) Urine pH 6.5 (5.0-8.0) Ur Specific [place] 1.015 (1.001-1.035) Urine Protein Negative (Negative) Urine Glucose (UA) Negative (Negative) Urine Ketones Negative (Negative) Urine Blood Negative (Negative) Urine Nitrite Positive H (Negative) Urine Bilirubin Negative (Negative) Urine Urobilinogen <2.0 (<2.0) mg/dL Ur Leukocyte Esterase Large H (Negative) Urine WBC 9 H (0-5) /hpf Ur Squamous Epith Cells <1 (0-4) /hpf Amorphous Sediment Rare H (None) /hpf Urine Mucus Rare H (None) /hpf Disposition Clinical Impression: Alcohol intoxication, UTI (urinary tract infection) Disposition: HOME SELF-CARE Condition: Fair Instructions (If sedation given, give patient instructions): Urinary Tract Infection in Women (ED), Alcohol Intoxication (ED) Additional Instructions: Follow-up with PCP. Report back to ER with any new or worsening symptoms. Prescriptions: Cephalexin [Keflex] 500 mg PO Q12HR 7 Days #14 cap Is patient prescribed a controlled substance at d/c from ED?: No Referrals: None,Stated [Primary Care Provider] - 1-2 days Time of Disposition: 05:22
[2023-12-17] MEDS: ACETAMINOPHEN TAB 500 MG TAB PO STA (03:25)
[2023-12-17 05:24] VITALS: PULSE 82
[2023-12-17] MEDS: diphenhydrAMINE 25 MG CAP PO STA (05:37)
[2023-12-17 05:58] LABS: Amorphous Sediment,Urine Rare /hpf; Appearance,Urine Cloudy (Clear); Bilirubin,Urine Negative (Negative); Blood,Urine Negative (Negative); Color,Urine Colorless; Glucose,Urine (UA) Negative (Negative); Ketones,Urine Negative (Negative); Leukocyte Esterase,Urine Large (Negative); Mucus,Urine Rare /hpf; Nitrite,Urine Positive (Negative); PH, Urine 6.5 (5.0-8.0); Protein,Urine Negative (Negative); Specific Gravity,Urine 1.015 (1.001-1.035); Squamous Epithelial Cell,Urine <1 /hpf (0-4); Urobilinogen,Urine <2.0 mg/dL (<2.0); WBC,Urine 9 /hpf (0-5)
[2023-12-17 06:05] VITALS: BP 114/74
== END 2023-12-17 05:40 | disposition home or self-care (01) ==
LOC: EC 00:37
DX: F10.129 Alcohol abuse with intoxication, unspecified (principal); N39.0 Urinary tract infection, site not specified; F17.200 Nicotine dependence, unspecified, uncomplicated; Z88.2 Allergy status to sulfonamides; Z91.041 Radiographic dye allergy status; Z91.013 Allergy to seafood
CPT/HCPCS: 81001; 82075; 99285

== ENCOUNTER 2023-12-22 01:18 | Observation (INO) | payer BC, OTHER ==
[2023-12-22 03:11] LABS: Basophils # (A) 0.1 k/uL (0-0.2); Basophils % (A) 1 %; Eosinophils % (A) 0 %; HCT 45.1 % (34.0-46.0); HGB 14.7 gm/dL (11.4-16.0); Lymphocytes # (A) 0.9 k/uL (1.0-4.8); Lymphocytes % (A) 8 %; MCH 32.6 pg (25.0-35.0); MCHC 32.7 g/dL (31.0-37.0); MCV 99.7 fL (80.0-100.0); Mean Platelet Volume 7.1; Monocytes # (A) 0.3 k/uL (0-1.0); Monocytes % (A) 2 %; Neutrophils # (A) 10.8 k/uL (1.3-7.7); Neutrophils % (A) 89 %; Platelet Count 299 k/uL (150-450); RBC 4.52 m/uL (3.80-5.40); RDW 13.9 % (11.5-15.5); WBC 12.1 k/uL (3.8-10.6)
--- NOTE | 2023-12-22 03:42 | ED ---
General Adult HPI - General Chief complaint: Skin/Abscess/Foreign Body Stated complaint: Rectal pain Time Seen by Provider: 12/22/23 01:23 Source: EMS Mode of arrival: EMS - History of Present Illness Initial comments: 63-year-old female with a past medical history significant for alcohol abuse presenting to the ED with complaints of rash. Patient initially seen here on 12/09/2023 with alcohol intoxication and complaints of rash. At that time had admission to Dr. Begum. Patient advised to continue Mycolog cream and a tapering course of steroids on discharge and was advised to follow-up outpatient. Patient reports that she did not follow-up. Seems that rash is getting worse. Also patient is currently intoxicated. Otherwise has no other complaints. Denies chest pain, shortness of breath, fever, chills, abdominal pain, changes in bowel or bladder habits. - Related Data Home Medications Medication Instructions Recorded Confirmed Vitamin D3(Unknown Dose) 1 tab PO DAILY 08/30/23 12/09/23 Multivitamins, Thera [Multivitamin 1 tab PO DAILY 11/27/23 12/09/23 (formulary)] Folic Acid-Vit B Complex-Vit C 1 cap PO DAILY 12/09/23 12/09/23 [Nephrocaps] Previous Rx's Medication Instructions Recorded Magnesium Oxide [Mag-Ox] 400 mg PO DAILY #15 tab 11/29/23 Nystatin 100,000 Unit/gm Powd 1 applic TOPICAL TID #1 each 11/29/23 [Mycostatin Powder] Nystatin 100,000Unit/gm Cream 1 applic TOPICAL BID each 11/29/23 [Mycostatin Cream] Pantoprazole [Protonix] 40 mg PO AC-BRKFST #30 tab 11/29/23 Thiamine [Vitamin B-1] 100 mg PO DAILY #30 tab 11/29/23 Triamcinolone 0.1% Cream [Kenalog 1 applic TOPICAL BID #1 each 11/29/23 0.1% Cream] chlordiazePOXIDE HCl [Librium] 10 mg PO TID #6 capsule 12/12/23 methylPREDNISolone Dose Pack 4 mg PO DIRECTED #21 tab 12/12/23 [Medrol Dose Pack] Cephalexin [Keflex] 500 mg PO Q12HR 7 Days #14 cap 12/17/23 Allergies Allergy/AdvReac Type Severity Reaction Status Date / Time shellfish derived [Shellfish] Allergy Severe Dyspnea Verified 12/22/23 01:33 iodine Allergy Rash/Hives Verified 12/22/23 01:33 Sulfa (Sulfonamide Allergy Rash/Hives Verified 12/22/23 01:33 Antibiotics) Review of Systems ROS Statement: Those systems with pertinent positive or pertinent negative responses have been documented in the HPI. ROS Other: All systems not noted in ROS Statement are negative. 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 History of Any Multi-Drug Resistant Organisms: None Reported Past Surgical History: Back Surgery Additional Past Surgical History / Comment(s): Cervical surgery at [facility] d/t injury, colonoscopies/benign polypectomy Past Anesthesia/Blood Transfusion Reactions: No Reported Reaction, Motion Sickness Additional Past Anesthesia/Blood Transfusion Reaction / Comment(s): PT has clausterphobia. Past Psychological History: Anxiety Smoking Status: Current some day smoker Past Alcohol Use History: Abuse, Daily, Heavy Past Drug Use History: None Reported - Past Family History Mother Family Medical History: Cancer Additional Family Medical History / Comment(s): Mother of melanoma Father Family Medical History: No Reported History Additional Family Medical History / Comment(s): Father is healthy General Exam General appearance: alert Neck exam: Present: normal inspection Respiratory exam: Present: normal lung sounds bilaterally Cardiovascular Exam: Present: regular rate GI/Abdominal exam: Present: soft Neurological exam: Present: alert Skin exam: Present: other (Extensive erythematous rash on the patient's torso with maceration of this rash in the gluteal region. She is wearing pants soaked with urine and also smells of urine) Course Vital Signs 12/22/23 12/22/23 01:22 04:08 Temperature 99.2 F Pulse Rate 77 82 Respiratory 18 18 Rate Blood Pressure 116/66 117/74 O2 Sat by Pulse 98 98 Oximetry Medical Decision Making - Medical Decision Making Was pt. sent in by a medical professional or institution (, [facility], [facility], urgent care, hospital, or alf...) When possible be specific @ -No Did you speak to anyone other than the patient for history (EMS, parent, family, police, friend...)? What history was obtained from this source @ -No Did you review nursing and triage notes (agree or disagree)? Why? @ -I reviewed and agree with nursing and triage notes Were old charts reviewed (outside hosp., previous admission, EMS record, old EKG, old radiological studies, urgent care reports/EKG's, alf records)? Report findings @ -Reviewed prior charts. For further details please see HPI. Differential Diagnosis (chest pain, altered mental status, abdominal pain women, abdominal pain men, vaginal bleeding, weakness, fever, dyspnea, syncope, headache, dizziness, GI bleed, back pain, seizure, CVA, palpatations, mental health, musculoskeletal)? @ -Atopic dermatitis, SJS, TEN, this is not meant to be an all-inclusive list. EKG interpreted by me (3pts min.). @ -None X-rays interpreted by me (1pt min.). @ -None done CT interpreted by me (1pt min.). @ -None done U/S interpreted by me (1pt. min.). @ -None done What testing was considered but not performed or refused? (CT, X-rays, U/S, labs)? Why? @ -None What meds were considered but not given or refused? Why? @ -None Did you discuss the management of the patient with other professionals (professionals i.e. , [facility], [facility], lab, RT, psych nurse, social services aide, actuarial manager, teacher, chairman president and chief executive officer, case maker)? Give summary @ -No Was smoking cessation discussed for >3mins.? @ -No Was critical care preformed (if so, how long)? @ -No Were there social determinants of health that impacted care today? How? (Homelessness, low income, unemployed, alcoholism, drug addiction, tr ansportation, low edu. Level, literacy, decrease access to med. care, fci, rehab)? @ -No Was there de-escalation of care discussed even if they declined (Discuss DNR or withdrawal of care, Hospice)? DNR status @ -No What co-morbidities impacted this encounter? (DM, HTN, Smoking, COPD, CAD, Cancer, CVA, ARF, Chemo, Hep., AIDS, mental health diagnosis, sleep apnea, morbid obesity)? @ -Alcoholism Was patient admitted / discharged? Hospital course, mention meds given and route, prescriptions, significant lab abnormalities, going to OR and other pertinent info. @ -Admission 63-year-old female presenting to the ED with complaints of rash and also alcohol intoxication. Laboratory studies reviewed. CBC CMP largely unremarkable. Alcohol elevated at 349. Patient will be admitted secondary to alcohol intoxication. Undiagnosed new problem with uncertain prognosis? @ -No Drug Therapy requiring intensive monitoring for toxicity (Heparin, Nitro, Insulin, Cardizem)? @ -No Were any procedures done? @ -No Diagnosis/symptom? @ -Alcohol intoxication, rash Acute, or Chronic, or Acute on Chronic? @ -Acute on chronic Uncomplicated (without systemic symptoms) or Complicated (systemic symptoms)? @ -Uncomplicated Side effects of treatment? @ -No Exacerbation, Progression, or Severe Exacerbation? @ -No Poses a threat to life or bodily function? How? (Chest pain, USA, DE, pneumonia, PE, COPD, DKA, ARF, appy, cholecystitis, CVA, Diverticulitis, Homicidal, Suicidal, threat to staff... and all critical care pts) @ -Unlikely - Lab Data Result diagrams: 12/22/23 02:52 12/22/23 02:52 Lab Results 12/22/23 12/22/23 12/22/23 Range/Units 02:52 02:52 04:10 WBC 12.1 H (3.8-10.6) k/uL RBC 4.52 (3.80-5.40) m/uL Hgb 14.7 (11.4-16.0) gm/dL Hct 45.1 (34.0-46.0) % MCV 99.7 (80.0-100.0) fL MCH 32.6 (25.0-35.0) pg MCHC 32.7 (31.0-37.0) g/dL RDW 13.9 (11.5-15.5) % Plt Count 299 (150-450) k/uL MPV 7.1 Neutrophils % 89 % Lymphocytes % 8 % Monocytes % 2 % Eosinophils % 0 % Basophils % 1 % Neutrophils # 10.8 H (1.3-7.7) k/uL Lymphocytes # 0.9 L (1.0-4.8) k/uL Monocytes # 0.3 (0-1.0) k/uL Eosinophils # 0.0 (0-0.7) k/uL Basophils # 0.1 (0-0.2) k/uL Sodium 140 (137-145) mmol/L Potassium 4.2 (3.5-5.1) mmol/L Chloride 105 (98-107) mmol/L Carbon Dioxide 19 L (22-30) mmol/L Anion Gap 16 mmol/L BUN 7 (7-17) mg/dL Creatinine 0.36 L (0.52-1.04) mg/dL Est GFR (CKD-EPI)AfAm >90 (>60 ml/min/1.73 sqM) Est GFR (CKD-EPI)NonAf >90 (>60 ml/min/1.73 sqM) Glucose 113 H (74-99) mg/dL Calcium 8.6 (8.4-10.2) mg/dL Total Bilirubin 0.9 (0.2-1.3) mg/dL AST 40 H (14-36) U/L ALT 31 (4-34) U/L Alkaline Phosphatase 78 (38-126) U/L Total Protein 6.7 (6.3-8.2) g/dL Albumin 4.0 (3.5-5.0) g/dL Urine Color Colorless Urine Appearance Clear (Clear) Urine pH 6.0 (5.0-8.0) Ur Specific [place] 1.004 (1.001-1.035) Urine Protein Negative (Negative) Urine Glucose (UA) Negative (Negative) Urine Ketones Trace H (Negative) Urine Blood Negative (Negative) Urine Nitrite Negative (Negative) Urine Bilirubin Negative (Negative) Urine Urobilinogen <2.0 (<2.0) mg/dL Ur Leukocyte Esterase Moderate H (Negative) Urine RBC 1 (0-5) /hpf Urine WBC 10 H (0-5) /hpf Ur Squamous Epith Cells <1 (0-4) /hpf Urine Bacteria Few H (None) /hpf Urine Mucus Rare H (None) /hpf Serum Alcohol 349 H* mg/dL Disposition Clinical Impression: Alcohol intoxication, Rash Disposition: ADMITTED IP TO THIS HOSP Referrals: None,Stated [Primary Care Provider] - 1-2 days Time of Disposition: 04:24
[2023-12-22 03:54] LABS: ALT 31 U/L (4-34); AST 40 U/L (14-36); African American GFR (CKD) >90 (>60 ml/min/1.73 sqM); Alkaline Phosphatase 78 U/L (38-126); Anion Gap 16 mmol/L; Blood Urea Nitrogen 7 mg/dL (7-17); Calcium 8.6 mg/dL (8.4-10.2); Carbon Dioxide 19 mmol/L (22-30); Chloride 105 mmol/L (98-107); Glucose 113 mg/dL (74-99); Non-African American GFR(CKD) >90 (>60 ml/min/1.73 sqM); Potassium 4.2 mmol/L (3.5-5.1); Sodium 140 mmol/L (137-145); Total Bilirubin 0.9 mg/dL (0.2-1.3); Total Protein 6.7 g/dL (6.3-8.2)
[2023-12-22 04:03] LABS: Alcohol 349 mg/dL
[2023-12-22 04:23] LABS: Appearance,Urine Clear (Clear); Bacteria,Urine Few /hpf; Bilirubin,Urine Negative (Negative); Blood,Urine Negative (Negative); Color,Urine Colorless; Glucose,Urine (UA) Negative (Negative); Ketones,Urine Trace (Negative); Leukocyte Esterase,Urine Moderate (Negative); Mucus,Urine Rare /hpf; Nitrite,Urine Negative (Negative); Protein,Urine Negative (Negative); RBC,Urine 1 /hpf (0-5); Specific Gravity,Urine 1.004 (1.001-1.035); Squamous Epithelial Cell,Urine <1 /hpf (0-4); Urobilinogen,Urine <2.0 mg/dL (<2.0); WBC,Urine 10 /hpf (0-5)
[2023-12-22] MEDS ORDERED: ONDANSETRON 4 MG/2 ML VIAL IVP PRN (04:25)
[2023-12-22] MEDS ORDERED: NALOXONE 0.4 MG/ML 1 ML VIAL IV PRN (04:25)
[2023-12-22] MEDS: SODIUM CHLORIDE 0.9% 1,000 ML IV SCH (05:00)
--- NOTE | 2023-12-22 10:23 | P.HPIM ---
History of Present Illness This is a pleasant 63 years old female with past medical history of multiple medical problems including alcohol use disorder. She presents today because of rash that extends all over her body Patient was evaluated about less than a week ago with in the emergency room and by Dr. Begum for her rash and patient states she has been prescribed prednisone pill and cream which she cannot tell about rash get worse. It is itchy and little painful but there is no vesicles or pimples. There is no discharge or wounds. Patient denies sore throat Denies chest pain dyspnea, no moderate swelling, no diarrhea vomiting or abdominal pain. She states that her urine is fine with no dysuria, she had dysuria about a week ago when she was started on antibiotic but currently she denies any symptoms. No change in frequency and looks normal to her. No lower abdominal pain or flank pain as well No headache dizziness weakness or numbness. Patient smokes about half pack per day and she was counseled to quit she agrees but she declines nicotine patch. Patient drinks 1 pint of liquor and 2 beers per day as she explains for the last week. She was counseled to quit as well. No illicit drugs. Patient states she was taking her antibiotic she was prescribed last week, patient was not sure but may be Keflex. However patient stated that she is not taking currently, for the last 2 days she confirms to me she was not taking the antibiotics however the rash was getting worse. Before that she was not sure when she did she stop taking the antibiotic Patient is afebrile and vitals look stable Labs also were unremarkable except for mildly elevated white cell count 12.1 but also patient was on steroids. And AST 40. Rest of CBC, BMP liver enzymes were unremarkable Urine analysis slightly abnormal but better than before and patient is as ymptomatic Alcohol level was high on admission 349 Review of Systems Review of systems CONSTITUTIONAL: No fever, no malaise, no fatigue. HEENT: No recent visual problems or hearing problems. Denied any sore throat. CARDIOVASCULAR: No orthopnea, PND, no palpitations, no syncope. PULMONARY: No shortness of breath, no cough, no hemoptysis. GASTROINTESTINAL: No diarrhea, no nausea, no vomiting, no abdominal pain. Normoactive bowel sounds. NEUROLOGICAL: No headaches, no weakness, no numbness. HEMATOLOGICAL: Denies any bleeding or petechiae. GENITOURINARY: Denies any burning micturition, frequency, or urgency. MUSCULOSKELETAL/RHEUMATOLOGICAL: Denies any joint pain, swelling, or any muscle pain. ENDOCRINE: Denies any polyuria or polydipsia. 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 History of Any Multi-Drug Resistant Organisms: None Reported Past Surgical History: Back Surgery Additional Past Surgical History / Comment(s): Cervical surgery at [facility] d/t injury, colonoscopies/benign polypectomy Past Anesthesia/Blood Transfusion Reactions: No Reported Reaction, Motion Sickness Additional Past Anesthesia/Blood Transfusion Reaction / Comment(s): PT has clausterphobia. Past Psychological History: Anxiety Smoking Status: Current some day smoker Past Alcohol Use History: Abuse, Daily, Heavy Past Drug Use History: None Reported - Past Family History Mother Family Medical History: Cancer Additional Family Medical History / Comment(s): Mother of melanoma Father Family Medical History: No Reported History Additional Family Medical History / Comment(s): Father is healthy Medications and Allergies Home Medications Medication Instructions Recorded Confirmed Type Multivitamins, Thera [Multivitamin 1 tab PO DAILY 11/27/23 12/22/23 History (formulary)] Magnesium Oxide [Mag-Ox] 400 mg PO DAILY #15 tab 11/29/23 12/22/23 Rx Nystatin 100,000 Unit/gm Powd 1 applic TOPICAL TID #1 each 11/29/23 12/22/23 Rx [Mycostatin Powder] Pantoprazole [Protonix] 40 mg PO AC-BRKFST #30 tab 11/29/23 12/22/23 Rx Thiamine [Vitamin B-1] 100 mg PO DAILY #30 tab 11/29/23 12/22/23 Rx Folic Acid-Vit B Complex-Vit C 1 cap PO DAILY 12/09/23 12/22/23 History [Nephrocaps] Cephalexin [Keflex] 500 mg PO DIRECTED 12/22/23 12/22/23 History Cholecalciferol (Vitamin D3) 50 mcg PO DAILY 12/22/23 12/22/23 History [Vitamin D3 (50 Mcg = 2000 Iu)] Allergies Allergy/AdvReac Type Severity Reaction Status Date / Time shellfish derived [Shellfish] Allergy Severe Dyspnea Verified 12/22/23 07:23 iodine Allergy Rash/Hives Verified 12/22/23 07:23 Sulfa (Sulfonamide Allergy Rash/Hives Verified 12/22/23 07:23 Antibiotics) Physical Exam Vitals: Vital Signs Temp Pulse Pulse Resp BP BP Pulse Ox 12/22/23 07:35 98.4 F 93 18 142/76 99 12/22/23 06:17 80 18 125/67 94 L 12/22/23 04:55 80 18 122/66 98 12/22/23 04:08 82 18 117/74 98 12/22/23 01:22 99.2 F 77 18 116/66 98 Intake and Output 12/21/23 12/22/23 12/22/23 22:59 06:59 14:59 Other: # Voids 1 Weight 72.575 kg GENERAL: The patient is alert and oriented x3, not in any acute distress. Well developed, well nourished. HEENT: Pupils are round and equally reacting to light. EOMI. No scleral icterus. No conjunctival pallor. Normocephalic, atraumatic. No pharyngeal erythema. No thyromegaly. CARDIOVASCULAR: S1 and S2 present. No murmurs, rubs, or gallops. PULMONARY: Chest is clear to auscultation, no wheezing , no crackles. ABDOMEN: Soft, nontender, nondistended, normoactive bowel sounds. No palpable organomegaly. MUSCULOSKELETAL: No joint swelling or deformity. EXTREMITIES: No cyanosis, clubbing, or pedal edema. NEUROLOGICAL: Gross neurological examination did not reveal any focal deficits. -SKIN: Widespread rash involving mainly the bottoms and extending into the trunk up and down. To lesser extent involve the extremities but spares the hands and soles. Patient also with some evidence of conjunctivitis and stomatitis on gingivitis of the mouth with small few papules in the mouth. No mouth ulcers. With itchy rivera Results CBC & Chem 7: 12/22/23 02:52 12/22/23 02:52 Labs: Abnormal Lab Results - Last 24 Hours (Table) 12/22/23 12/22/23 12/22/23 Range/Units 02:52 02:52 04:10 WBC 12.1 H (3.8-10.6) k/uL Neutrophils # 10.8 H (1.3-7.7) k/uL Lymphocytes # 0.9 L (1.0-4.8) k/uL Carbon Dioxide 19 L (22-30) mmol/L Creatinine 0.36 L (0.52-1.04) mg/dL Glucose 113 H (74-99) mg/dL AST 40 H (14-36) U/L Urine Ketones Trace H (Negative) Ur Leukocyte Esterase Moderate H (Negative) Urine WBC 10 H (0-5) /hpf Urine Bacteria Few H (None) /hpf Urine Mucus Rare H (None) /hpf Serum Alcohol 349 H* mg/dL Assessment and Plan Assessment: Widespread maculopapular rash extending from the buttocks and the trunk and to lesser extent extremities but not the hands and soles. With no mouth ulcers but mucositis and conjunctivitis. Differential diagnosis infection like scabies, versus drug rash versus other Alcohol use disorder at risk of alcohol withdrawal Recently treated for UTI Mild leukocytosis could be secondary to above Nicotine dependence Plan: I discussed the case with the patient she understands there is no dermatology service in this facility, she still wants to stay and get treated here rather than transferred. Start Benadryl as needed Pain medication Permethrin x 1 Infectious disease consult Continue with CIWA protocol and thiamine Labs and medication were reviewed.. Continue same treatment. Continue with sym ptomatic treatment. Resume home medication. Monitor labs and vitals. DVT and GI prophylaxis. Further recommendations as per clinical course of the patient DVT prophylaxis: Subcutaneous heparin GI Prophylaxis: Pepcid PT/OT: Pending Prognosis is guarded
[2023-12-22] MEDS: diphenhydrAMINE 50 MG/ML 1 ML VIAL IVP STA (10:52)
[2023-12-22] MEDS: MULTIVITAMINS, THERA 1 EACH TAB PO SCH (10:52)
[2023-12-22] MEDS: FOLIC ACID 1 MG TAB PO SCH (10:52)
[2023-12-22] MEDS: HYDROcodone/APAP 5-325MG 1 EACH TAB PO PRN (10:55)
[2023-12-22] MEDS: methylPREDNISolone SOD SUCCI 125 MG/2 ML VIAL IV SCH (14:03)
[2023-12-22] MEDS: PERMETHRIN 5% CREAM 60 GM TUBE TOPICAL ONE (14:03)
[2023-12-22] MEDS: diphenhydrAMINE 50 MG/ML 1 ML VIAL IVP PRN (18:11)
--- NOTE | 2023-12-23 08:25 | P.CONS ---
History of Present Illness - Reason for Consult Consult date: 12/22/23 Rash, was treated for UTI Requesting physician: Abdelrahman E Sheet - Chief Complaint Worsening rash x few days - History of Present Illness Patient is a 63-year-old female past medical history significant for hypertension osteoarthritis alcoholism alcoholic hepatitis recent admission to the hospital with significant fungal dermatitis/excoriation of the bilateral g luteal area and rash responded to steroids and the patient was subsequently discharged home on a Medrol Dosepak patient now presenting back to the hospital complaining of worsening rash which has been throughout her body patient denies having any sores in her mouth difficulty breathing or any wheezing and mentioned not taking any new medication patient denies having any fever or any chills and no fever was recorded on presentation the hospital except low-grade of 99.2 patient was not tachycardic hypotensive or hypoxic did have a white count of 12.1 creatinine 0.36 electrolytes were normal AST was mildly elevated urine is mildly positive serum alcohol was 349 patient has been admitted to hospital has been treated with the permethrin and infectious disease was consulted for further management of rash Review of Systems Positive point and negatives has been mentioned in the HPI, complete review of systems was performed and all other systems are negative Past Medical History Past Medical History: Hypertension, Osteoarthritis (OA) Additional Past Medical History / Comment(s): Fall September 2019 with neck injury/L arm weak/decreased sensation and weakness to L leg-sent to [facility], [place] and had cervical surgery, chronic cervical/L shoulder pain since surgery, chronic low back pain for years, ETOH abuse-pt states she has had withdrawals/shaking/weakness/nausea/one seizure long ago, alcoholic hepatitis, 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 History of Any Multi-Drug Resistant Organisms: None Reported Past Surgical History: Back Surgery Additional Past Surgical History / Comment(s): Cervical surgery at [facility] [place] d/t injury, colonoscopies/benign polypectomy Past Anesthesia/Blood Transfusion Reactions: No Reported Reaction, Motion Sickness Additional Past Anesthesia/Blood Transfusion Reaction / Comm: PT has clausterphobia. Past Psychological History: Anxiety Smoking Status: Current some day smoker Past Alcohol Use History: Abuse, Daily, Heavy Past Drug Use History: None Reported - Past Family History Mother Family Medical History: Cancer Additional Family Medical History / Comment(s): Mother of melanoma Father Family Medical History: No Reported History Additional Family Medical History / Comment(s): Father is healthy Medications and Allergies Home Medications Medication Instructions Recorded Confirmed Type Multivitamins, Thera [Multivitamin 1 tab PO DAILY 11/27/23 12/22/23 History (formulary)] Magnesium Oxide [Mag-Ox] 400 mg PO DAILY #15 tab 11/29/23 12/22/23 Rx Nystatin 100,000 Unit/gm Powd 1 applic TOPICAL TID #1 each 11/29/23 12/22/23 Rx [Mycostatin Powder] Pantoprazole [Protonix] 40 mg PO AC-BRKFST #30 tab 11/29/23 12/22/23 Rx Thiamine [Vitamin B-1] 100 mg PO DAILY #30 tab 11/29/23 12/22/23 Rx Folic Acid-Vit B Complex-Vit C 1 cap PO DAILY 12/09/23 12/22/23 History [Nephrocaps] Cholecalciferol (Vitamin D3) 50 mcg PO DAILY 12/22/23 12/22/23 History [Vitamin D3 (50 Mcg = 2000 Iu)] LORazepam [Ativan] 0.5 mg PO Q8HR PRN 3 Days #9 tab 12/27/23 Rx hydrALAZINE HCL [Apresoline] 25 mg PO BID 30 Days #60 tab 12/27/23 Rx predniSONE 10 mg PO DIRECTED 12 Days #30 12/27/23 Rx tab Allergies Allergy/AdvReac Type Severity Reaction Status Date / Time shellfish derived [Shellfish] Allergy Severe Dyspnea Verified 12/22/23 07:23 iodine Allergy Rash/Hives Verified 12/22/23 07:23 Sulfa (Sulfonamide Allergy Rash/Hives Verified 12/22/23 07:23 Antibiotics) Physical Exam Vitals: Vital Signs Temp Pulse Pulse Resp BP BP Pulse Ox 12/22/23 07:35 98.4 F 93 18 142/76 99 12/22/23 06:17 80 18 125/67 94 L 12/22/23 04:55 80 18 122/66 98 12/22/23 04:08 82 18 117/74 98 12/22/23 01:22 99.2 F 77 18 116/66 98 Intake and Output 12/21/23 12/22/23 12/22/23 22:59 06:59 14:59 Other: Voiding Method External Catheter # Voids 1 Weight 72.575 kg 72.575 kg GENERAL DESCRIPTION: Middle-aged female lying in bed, no distress. No tachypnea or accessory muscle of respiration use. HEENT: Shows Pallor , no scleral icterus. Oral mucous membrane is dry. No pharyngeal erythema or thrush NECK: Trachea central, no thyromegaly. LUNGS: Unlabored breathing. Clear to auscultation anteriorly. No wheeze or crackle. HEART: S1, S2, regular rate and rhythm. No loud murmur ABDOMEN: Soft, no tenderness , guarding or rigidity, no organomegaly EXTREMITIES: No edema of feet. SKIN: Generalized maculopapular rash and some erythema to the gluteal area no open wound or drainage NEUROLOGICAL: The patient is awake, alert, oriented x3, mood and affect normal. Results CBC & Chem 7: 12/27/23 05:47 12/27/23 05:47 Labs: Abnormal Lab Results - Last 24 Hours (Table) 12/22/23 12/22/23 12/22/23 Range/Units 02:52 02:52 04:10 WBC 12.1 H (3.8-10.6) k/uL Neutrophils # 10.8 H (1.3-7.7) k/uL Lymphocytes # 0.9 L (1.0-4.8) k/uL Carbon Dioxide 19 L (22-30) mmol/L Creatinine 0.36 L (0.52-1.04) mg/dL Glucose 113 H (74-99) mg/dL AST 40 H (14-36) U/L Urine Ketones Trace H (Negative) Ur Leukocyte Esterase Moderate H (Negative) Urine WBC 10 H (0-5) /hpf Urine Bacteria Few H (None) /hpf Urine Mucus Rare H (None) /hpf Serum Alcohol 349 H* mg/dL Assessment and Plan (1) Allergy to sulfa drugs Status: Acute Code(s): Z88.2 - ALLERGY STATUS TO SULFONAMIDES SNOMED Code(s): 29237242 (2) Rash Status: Acute Code(s): R21 - RASH AND OTHER NONSPECIFIC SKIN ERUPTION SNOMED Code(s): 127438673 Plan: 1patient presented hospital extensive rash more likely drug rash with no evidence of any mucous membrane involvement or any joint swelling, the offending drug is not very clear as the patient denies any new medication questionably to alcoholism versus rheumatological disorder 2-we will start the patient on Solu-Medrol 60 mg every 6 hours review of extensive rash 3-order complete rheumatological workup and may benefit from dermatology evaluation possible skin biopsy We will follow on clinical condition and cultures to further adjust medication if needed Thank you for this consultation we will follow the patient along with you Dictation was produced using [employer] dictation software. please excuse any grammatical, word or spelling errors. Time with Patient: Greater than 30
[2023-12-23] MEDS: THIAMINE 100 MG TAB PO SCH (09:47)
[2023-12-23] MEDS: hydrALAZINE HCL 25 MG TAB PO SCH (09:48)
[2023-12-23] MEDS: methylPREDNISolone SOD SUCCI 125 MG/2 ML VIAL IV SCH (13:48)
--- NOTE | 2023-12-23 15:24 | P.PN ---
Subjective Progress Note Date: 12/23/23 Principal diagnosis: Reason for follow-up is rash Patient is a 63-year-old female past medical history significant for hypertension osteoarthritis alcoholism alcoholic hepatitis recent admission to the hospital with significant fungal dermatitis/excoriation of the bilateral gluteal area and rash responded to steroids, now presenting back to the hospital worsening rash after completion of her steroid. On today's visit that is 12/23/2023, Patient is afebrile patient is currently on room air and denies having any shortness of breath, the patient denies any chest pain or cough, the patient denies any nausea vomiting did not have any abdominal pain and no diarrhea, rashes slightly decreased intensity no new rash and no mucous membrane lesions Objective - Vital Signs Vital signs: Vital Signs Temp 97.8 F 12/23/23 07:08 Pulse 76 12/23/23 07:08 Resp 17 12/23/23 07:08 BP 173/93 12/23/23 07:08 Pulse Ox 95 12/23/23 07:08 FiO2 Intake & Output 12/22/23 12/23/23 12/23/23 18:59 06:59 18:59 Intake Total 220 900 Output Total 1100 Balance 220 -200 Weight 72.575 kg Intake: Oral 220 900 Output: Urine 1100 Other: Voiding Method External Catheter External Catheter External Catheter # Voids 1 - Exam GENERAL DESCRIPTION: Middle-aged female lying in bed in no distress RESPIRATORY SYSTEM: Unlabored breathing , decreased breath sounds at bases HEART: S1 S2 regular rate and rhythm , ABDOMEN: Soft , no tenderness SKIN: Rash has slightly decreased in intensity no new rash noticed or any vesicles - Labs CBC & Chem 7: 12/22/23 02:52 12/22/23 02:52 Assessment and Plan (1) Rash Current Visit: Yes Status: Acute Code(s): R21 - RASH AND OTHER NONSPECIFIC SKIN ERUPTION SNOMED Code(s): 191605569 Plan: 1patient presented hospital extensive rash more likely drug rash with no evidence of any mucous membrane involvement or any joint swelling, the offending drug is not very clear as the patient denies any new medication questionably to alcoholism versus rheumatological disorder 2-patient to continue with Solu-Medrol 60 mg every 6 hours and await rheumatological workup Dictation was produced using [employer] dictation software. please excuse any grammatical, word or spelling errors. Time with Patient: Less than 30
[2023-12-23] MEDS ORDERED: LORazepam 1 MG TAB PO PRN (18:49)
--- NOTE | 2023-12-23 19:49 | P.PN ---
Subjective This is a pleasant 63 years old female with past medical history of multiple medical problems including alcohol use disorder. She presents today because of rash that extends all over her body Patient was evaluated about less than a week ago with in the emergency room and by Dr. Begum for her rash and patient states she has been prescribed prednisone pill and cream which she cannot tell about rash get worse. It is itchy and little painful but there is no vesicles or pimples. There is no discharge or wounds. Patient denies sore throat Denies chest pain dyspnea, no moderate swelling, no diarrhea vomiting or abdominal pain. She states that her urine is fine with no dysuria, she had dysuria about a week ago when she was started on antibiotic but currently she denies any symptoms. No change in frequency and looks normal to her. No lower abdominal pain or flank pain as well No headache dizziness weakness or numbness. Patient smokes about half pack per day and she was counseled to quit she agrees but she declines nicotine patch. Patient drinks 1 pint of liquor and 2 beers per day as she explains for the last week. She was counseled to quit as well. No illicit drugs. Patient states she was taking her antibiotic she was prescribed last week, patient was not sure but may be Keflex. However patient stated that she is not taking currently, for the last 2 days she confirms to me she was not taking the antibiotics however the rash was getting worse. Before that she was not sure when she did she stop taking the antibiotic Patient is afebrile and vitals look stable Labs also were unremarkable except for mildly elevated white cell count 12.1 but also patient was on steroids. And AST 40. Rest of CBC, BMP liver enzymes were unremarkable Urine analysis slightly abnormal but better than before and patient is asymptomatic Alcohol level was high on admission 349 12/23/2023 Patient today has significant improvement in the intensity and to lesser degree less sepea degree of the rash , I think patient showed significant improvement related to permethrin as parasitic infection of the skin is suspected. There was also suspicion of drug allergic reaction but this is felt less likely because of the rapid response on the treatment although she started on IV Solu- Medrol 60 mg by the fact that she was not taking her antibiotic for about 2 to 3 days prior to hospitalization. Patient with no alcohol withdrawal symptoms, she is on CIWA protocol and thiamine for her alcohol use disorder Inflammatory markers like ESR is low at 4, rheumatoid factor negative SHASHA is negative. If she keeps improving may be considered for discharge in 24 to 48 hours Objective - Vital Signs Vital signs: Vital Signs Temp 97.8 F 12/23/23 07:08 Pulse 76 12/23/23 07:08 Resp 17 12/23/23 07:08 BP 173/93 12/23/23 07:08 Pulse Ox 95 12/23/23 07:08 FiO2 Intake & Output 12/22/23 12/23/23 12/23/23 18:59 06:59 18:59 Intake Total 220 900 Output Total 1100 Balance 220 -200 Weight 72.575 kg Intake: Oral 220 900 Output: Urine 1100 Other: Voiding Method External Catheter External Catheter External Catheter # Voids 1 - Exam Exam done in the presence of the nurse and Patient care verbal consent GENERAL: The patient is alert and oriented x3, not in any acute distress. Well developed, well nourished. HEENT: Pupils are round and equally reacting to light. EOMI. No scleral icterus. No conjunctival pallor. Normocephalic, atraumatic. No pharyngeal erythema. No thyromegaly. CARDIOVASCULAR: S1 and S2 present. No murmurs, rubs, or gallops. PULMONARY: Chest is clear to auscultation, no wheezing , no crackles. ABDOMEN: Soft, nontender, nondistended, normoactive bowel sounds. No palpable organomegaly. MUSCULOSKELETAL: No joint swelling or deformity. EXTREMITIES: No cyanosis, clubbing, or pedal edema. NEUROLOGICAL: Gross neurological examination did not reveal any focal deficits. -SKIN: Widespread rash involving mainly the bottoms and extending into the trunk up and down. To lesser extent involve the extremities but spares the hands and soles. Patient also with some evidence of conjunctivitis and stomatitis on gingivitis of the mouth with small few papules in the mouth. No mouth ulcers. With itchy irvera. Improving . Improved - Labs CBC & Chem 7: 12/22/23 02:52 12/22/23 02:52 Assessment and Plan Assessment: Widespread maculopapular rash extending from the buttocks and the trunk and to lesser extent extremities but not the hands and soles. With no mouth ulcers but mucositis and conjunctivitis. Differential diagnosis infection like scabies, versus drug rash versus other. Most likely is parasitic infection responded well to permethrin Alcohol use disorder at risk of alcohol withdrawal Recently treated for UTI Mild leukocytosis could be secondary to above Nicotine dependence Plan: Continue monitoring for rash Continue with Benadryl as needed Continue with IV Solu-Medrol Pain medication Infectious disease consult Continue with CIWA protocol and thiamine Labs and medication were reviewed.. Continue same treatment. Continue with symptomatic treatment. Resume home medication. Monitor labs and vitals. DVT and GI prophylaxis. Further recommendations as per clinical course of the patient DVT prophylaxis: Subcutaneous heparin GI Prophylaxis: Pepcid PT/OT: Pending Prognosis is guarded
[2023-12-24] MEDS: THIAMINE 100 MG TAB PO SCH (10:11)
--- NOTE | 2023-12-24 14:10 | P.PN ---
Subjective This is a pleasant 63 years old female with past medical history of multiple medical problems including alcohol use disorder. She presents today because of rash that extends all over her body Patient was evaluated about less than a week ago with in the emergency room and by Dr. Begum for her rash and patient states she has been prescribed prednisone pill and cream which she cannot tell about rash get worse. It is itchy and little painful but there is no vesicles or pimples. There is no discharge or wounds. Patient denies sore throat Denies chest pain dyspnea, no moderate swelling, no diarrhea vomiting or abdominal pain. She states that her urine is fine with no dysuria, she had dysuria about a week ago when she was started on antibiotic but currently she denies any symptoms. No change in frequency and looks normal to her. No lower abdominal pain or flank pain as well No headache dizziness weakness or numbness. Patient smokes about half pack per day and she was counseled to quit she agrees but she declines nicotine patch. Patient drinks 1 pint of liquor and 2 beers per day as she explains for the last week. She was counseled to quit as well. No illicit drugs. Patient states she was taking her antibiotic she was prescribed last week, patient was not sure but may be Keflex. However patient stated that she is not taking currently, for the last 2 days she confirms to me she was not taking the antibiotics however the rash was getting worse. Before that she was not sure when she did she stop taking the antibiotic Patient is afebrile and vitals look stable Labs also were unremarkable except for mildly elevated white cell count 12.1 but also patient was on steroids. And AST 40. Rest of CBC, BMP liver enzymes were unremarkable Urine analysis slightly abnormal but better than before and patient is asymptomatic Alcohol level was high on admission 349 12/23/2023 Patient today has significant improvement in the intensity and to lesser degree less sepea degree of the rash , I think patient showed significant improvement related to permethrin as parasitic infection of the skin is suspected. There was also suspicion of drug allergic reaction but this is felt less likely because of the rapid response on the treatment although she started on IV Solu- Medrol 60 mg by the fact that she was not taking her antibiotic for about 2 to 3 days prior to hospitalization. Patient with no alcohol withdrawal symptoms, she is on CIWA protocol and thiamine for her alcohol use disorder Inflammatory markers like ESR is low at 4, rheumatoid factor negative SHASHA is negative. If she keeps improving may be considered for discharge in 24 to 48 hours 12/24/2023 Rash continue to improve however is not completely resolved. Still itching but better ID team on the case recommend rheumatology consult Consult Dr. Dsouza Objective - Vital Signs Vital signs: Vital Signs Temp 97.4 F L 12/24/23 07:32 Pulse 74 12/24/23 07:32 Resp 17 12/24/23 07:32 BP 164/83 12/24/23 07:32 Pulse Ox 97 12/24/23 07:32 FiO2 Intake & Output 12/23/23 12/24/23 12/24/23 18:59 06:59 18:59 Output Total 400 300 Balance -400 -300 Output: Urine 400 300 Other: Voiding Method External Catheter External Catheter # Voids 3 1 # Bowel Movements 1 5 - Exam Exam done in the presence of the nurse and Patient care verbal consent GENERAL: The patient is alert and oriented x3, not in any acute distress. Well developed, well nourished. HEENT: Pupils are round and equally reacting to light. EOMI. No scleral icterus. No conjunctival pallor. Normocephalic, atraumatic. No pharyngeal erythema. No thyromegaly. CARDIOVASCULAR: S1 and S2 present. No murmurs, rubs, or gallops. PULMONARY: Chest is clear to auscultation, no wheezing , no crackles. ABDOMEN: Soft, nontender, nondistended, normoactive bowel sounds. No palpable organomegaly. MUSCULOSKELETAL: No joint swelling or deformity. EXTREMITIES: No cyanosis, clubbing, or pedal edema. NEUROLOGICAL: Gross neurological examination did not reveal any focal deficits. -SKIN: Widespread rash involving mainly the bottoms and extending into the trunk up and down. To lesser extent involve the extremities but spares the hands and soles. Patient also with some evidence of conjunctivitis and stomatitis on gingivitis of the mouth with small few papules in the mouth. No mouth ulcers. With itchy rivera. Improving . Improved - Labs CBC & Chem 7: 12/22/23 02:52 12/22/23 02:52 Assessment and Plan Assessment: Widespread maculopapular rash extending from the buttocks and the trunk and to lesser extent extremities but not the hands and soles. With no mouth ulcers but mucositis and conjunctivitis. Differential diagnosis infection like scabies, versus drug rash versus other. Most likely is parasitic infection responded wel l to permethrin Alcohol use disorder at risk of alcohol withdrawal Recently treated for UTI Mild leukocytosis could be secondary to above Nicotine dependence Plan: Rheumatology consult Continue monitoring for rash Continue with Benadryl as needed Continue with IV Solu-Medrol Pain medication Infectious disease consult Continue with CIWA protocol and thiamine Labs and medication were reviewed.. Continue same treatment. Continue with symptomatic treatment. Resume home medication. Monitor labs and vitals. DVT and GI prophylaxis. Further recommendations as per clinical course of the patient DVT prophylaxis: Subcutaneous heparin GI Prophylaxis: Pepcid PT/OT: Pending Prognosis is guarded
[2023-12-25] MEDS ORDERED: diphenhydrAMINE 2% CREAM 28.4 GM TUBE TOPICAL PRN (13:01)
--- NOTE | 2023-12-25 14:37 | P.PN ---
Subjective Progress Note Date: 12/24/23 Principal diagnosis: Reason for follow-up is rash Patient is a 63-year-old female past medical history significant for hypertension osteoarthritis alcoholism alcoholic hepatitis recent admission to the hospital with significant fungal dermatitis/excoriation of the bilateral gluteal area and rash responded to steroids, now presenting back to the hospital worsening rash after completion of her steroid. On today's visit that is 12/24/2023, patient has been afebrile, patient is breathing comfortably and is currently on room air, patient denies having any significant cough no chest pain shortness of breath, patient denies nausea vomiting or diarrhea and no abdominal pain, rash has decreased in intensity No new labs were obtained today Objective - Vital Signs Vital signs: Vital Signs Temp 97.4 F L 12/24/23 07:32 Pulse 74 12/24/23 07:32 Resp 17 12/24/23 07:32 BP 164/83 12/24/23 07:32 Pulse Ox 97 12/24/23 07:32 FiO2 Intake & Output 12/23/23 12/24/23 12/24/23 18:59 06:59 18:59 Output Total 400 300 Balance -400 -300 Output: Urine 400 300 Other: Voiding Method External Catheter External Catheter # Voids 3 1 # Bowel Movements 1 5 - Exam GENERAL DESCRIPTION: Middle-aged female lying in bed in no distress RESPIRATORY SYSTEM: Unlabored breathing , decreased breath sounds at bases HEART: S1 S2 regular rate and rhythm , ABDOMEN: Soft , no tenderness SKIN: Rash has slightly decreased in intensity no new rash noticed or any vesicles - Labs CBC & Chem 7: 12/22/23 02:52 12/22/23 02:52 Assessment and Plan (1) Rash Current Visit: Yes Status: Acute Code(s): R21 - RASH AND OTHER NONSPECIFIC SKIN ERUPTION SNOMED Code(s): 962835827 Plan: 1patient presented hospital extensive rash more likely drug rash with no evidence of any mucous membrane involvement or any joint swelling, the offending drug is not very clear as the patient denies any new medication questionably to alcoholism versus rheumatological disorder 2-patient to continue with Solu-Medrol 60 mg every 6 hours and await rheumatology evaluation Dictation was produced using [employer] dictation software. please excuse any grammatical, word or spelling errors. Time with Patient: Less than 30
--- NOTE | 2023-12-25 14:37 | P.PN ---
Subjective Progress Note Date: 12/25/23 Principal diagnosis: Reason for follow-up is rash Patient is a 63-year-old female past medical history significant for hypertension osteoarthritis alcoholism alcoholic hepatitis recent admission to the hospital with significant fungal dermatitis/excoriation of the bilateral gluteal area and rash responded to steroids, now presenting back to the hospital worsening rash after completion of her steroid. On today's visit that is 12/25/2023,the patient denies any fever or any chills, patient is breathing comfortably on room air, the patient denies chest pain shortness of breath and no significant cough, patient denies abdominal pain, no nausea vomiting or diarrhea. Patient rash has decreased intensity but not completely resolved no new rash has been noticed no new labs today Patient did have a normal sed rate rheumatoid factor and SHASHA screen was negative Objective - Vital Signs Vital signs: Vital Signs Temp 98.2 F 12/25/23 07:50 Pulse 78 12/25/23 07:50 Resp 15 12/25/23 07:50 BP 152/81 12/25/23 07:50 Pulse Ox 96 12/25/23 07:50 FiO2 Intake & Output 12/24/23 12/25/23 12/25/23 18:59 06:59 18:59 Intake Total 850 Output Total 500 Balance 850 -500 Intake: Oral 850 Output: Urine 500 Other: Voiding Method External Catheter # Voids 1 2 - Exam GENERAL DESCRIPTION: Middle-aged female lying in bed in no distress RESPIRATORY SYSTEM: Unlabored breathing , decreased breath sounds at bases HEART: S1 S2 regular rate and rhythm , ABDOMEN: Soft , no tenderness SKIN: Rash has slightly decreased in intensity no new rash noticed or any vesicles - Labs CBC & Chem 7: 12/22/23 02:52 12/22/23 02:52 Assessment and Plan (1) Rash Current Visit: Yes Status: Acute Code(s): R21 - RASH AND OTHER NONSPECIFIC SKIN ERUPTION SNOMED Code(s): 542447279 Plan: 1patient presented hospital extensive rash more likely drug rash with no evidence of any mucous membrane involvement or any joint swelling, the offending drug is not very clear as the patient denies any new medication questionably to alcoholism versus rheumatological disorder 2-patient rash has decreased intensity from the patient will continue with Solu- Medrol 60 mg every 6 hours and will benefit from outpatient rheumatology evaluation and possible skin biopsy Dictation was produced using dragon dictation software. please excuse any grammatical, word or spelling errors. Time with Patient: Less than 30
--- NOTE | 2023-12-26 06:20 | P.PN ---
Subjective This is a pleasant 63 years old female with past medical history of multiple medical problems including alcohol use disorder. She presents today because of rash that extends all over her body Patient was evaluated about less than a week ago with in the emergency room and by Dr. Begum for her rash and patient states she has been prescribed prednisone pill and cream which she cannot tell about rash get worse. It is itchy and little painful but there is no vesicles or pimples. There is no discharge or wounds. Patient denies sore throat Denies chest pain dyspnea, no moderate swelling, no diarrhea vomiting or abdominal pain. She states that her urine is fine with no dysuria, she had dysuria about a week ago when she was started on antibiotic but currently she denies any symptoms. No change in frequency and looks normal to her. No lower abdominal pain or flank pain as well No headache dizziness weakness or numbness. Patient smokes about half pack per day and she was counseled to quit she agrees but she declines nicotine patch. Patient drinks 1 pint of liquor and 2 beers per day as she explains for the last week. She was counseled to quit as well. No illicit drugs. Patient states she was taking her antibiotic she was prescribed last week, patient was not sure but may be Keflex. However patient stated that she is not taking currently, for the last 2 days she confirms to me she was not taking the antibiotics however the rash was getting worse. Before that she was not sure when she did she stop taking the antibiotic Patient is afebrile and vitals look stable Labs also were unremarkable except for mildly elevated white cell count 12.1 but also patient was on steroids. And AST 40. Rest of CBC, BMP liver enzymes were unremarkable Urine analysis slightly abnormal but better than before and patient is asymptomatic Alcohol level was high on admission 349 12/23/2023 Patient today has significant improvement in the intensity and to lesser degree less sepea degree of the rash , I think patient showed significant improvement related to permethrin as parasitic infection of the skin is suspected. There was also suspicion of drug allergic reaction but this is felt less likely because of the rapid response on the treatment although she started on IV Solu- Medrol 60 mg by the fact that she was not taking her antibiotic for about 2 to 3 days prior to hospitalization. Patient with no alcohol withdrawal symptoms, she is on CIWA protocol and thiamine for her alcohol use disorder Inflammatory markers like ESR is low at 4, rheumatoid factor negative SHASHA is negative. If she keeps improving may be considered for discharge in 24 to 48 hours 12/24/2023 Rash continue to improve however is not completely resolved. Still itching but better ID team on the case recommend rheumatology consult Consult Dr. Dsouza 12/25/2023 Patient rash Improving every day but not completely resolved She complains of severe itching of the buttock therefore Cream is added. Also she is given systemic She is on IV Solu-Medrol Rheumatology consult may be able to evaluate the patient this coming Tuesday tomorrow as per staff, the office is closed on weekends Objective - Vital Signs Vital signs: Vital Signs Temp 98.2 F 12/25/23 14:14 Pulse 68 12/25/23 14:14 Resp 17 12/25/23 14:14 BP 166/92 12/25/23 14:14 Pulse Ox 96 12/25/23 14:14 FiO2 Intake & Output 12/24/23 12/25/23 12/25/23 18:59 06:59 18:59 Intake Total 850 Output Total 1100 Balance 850 -1100 Intake: Oral 850 Output: Urine 1100 Other: Voiding Method External Catheter # Voids 1 2 - Exam Exam done in the presence of the nurse and Patient care verbal consent GENERAL: The patient is alert and oriented x3, not in any acute distress. Well developed, well nourished. HEENT: Pupils are round and equally reacting to light. EOMI. No scleral icterus. No conjunctival pallor. Normocephalic, atraumatic. No pharyngeal erythema. No thyromegaly. CARDIOVASCULAR: S1 and S2 present. No murmurs, rubs, or gallops. PULMONARY: Chest is clear to auscultation, no wheezing , no crackles. ABDOMEN: Soft, nontender, nondistended, normoactive bowel sounds. No palpable organomegaly. MUSCULOSKELETAL: No joint swelling or deformity. EXTREMITIES: No cyanosis, clubbing, or pedal edema. NEUROLOGICAL: Gross neurological examination did not reveal any focal deficits. -SKIN: Widespread rash involving mainly the bottoms and extending into the trunk up and down. To lesser extent involve the extremities but spares the hands and soles. Patient also with some evidence of conjunctivitis and stomatitis on gingivitis of the mouth with small few papules in the mouth. No mouth ulcers. With itchy rivera. Improving . Improved - Labs CBC & Chem 7: 12/22/23 02:52 12/22/23 02:52 Assessment and Plan Assessment: Widespread maculopapular rash extending from the buttocks and the trunk and to lesser extent extremities but not the hands and soles. With no mouth ulcers but mucositis and conjunctivitis. Differential diagnosis infection like scabies, versus drug rash versus other. Most likely is parasitic infection responded well to permethrin Alcohol use disorder at risk of alcohol withdrawal Recently treated for UTI Mild leukocytosis could be secondary to above Nicotine dependence Plan: Rheumatology consult Continue monitoring for rash Continue with Benadryl as needed Continue with IV Solu-Medrol Pain medication Infectious disease consult Continue with CIWA protocol and thiamine Labs and medication were reviewed.. Continue same treatment. Continue with sy mptomatic treatment. Resume home medication. Monitor labs and vitals. DVT and GI prophylaxis. Further recommendations as per clinical course of the patient DVT prophylaxis: Subcutaneous heparin GI Prophylaxis: Pepcid PT/OT: Pending Prognosis is guarded
[2023-12-26 10:46] LABS: Magnesium 1.7 mg/dL (1.5-2.4)
[2023-12-26 10:50] LABS: Blood Urea Nitrogen 17.2 mg/dL (9.0-27.0); Calcium 8.3 mg/dL (8.7-10.3); Carbon Dioxide 18.3 mmol/L (21.6-31.8); Chloride 99 mmol/L (96-109); Glucose 231 mg/dL (70-110); Potassium 4.1 mmol/L (3.5-5.5); Sodium 134 mmol/L (135-145)
--- NOTE | 2023-12-26 12:36 | P.PN ---
Subjective Progress Note Date: 12/26/23 Principal diagnosis: Reason for follow-up is rash Patient is a 63-year-old female past medical history significant for hypertension osteoarthritis alcoholism alcoholic hepatitis recent admission to the hospital with significant fungal dermatitis/excoriation of the bilateral gluteal area and rash responded to steroids, now presenting back to the hospital worsening rash after completion of her steroid. On today's visit that is 12/26/2023,the patient remains to be afebrile, patient is on room air not requiring supplemental oxygen and denies any shortness of breath no chest pain or cough.Patient denies having any nausea or vomiting, no abdominal pain and no diarrhea, her rash has decreased intensity and no new rash patient mention feeling better wants to go home. Patient did have a creatinine 0.4 Objective - Vital Signs Vital signs: Vital Signs Temp 97.8 F 12/26/23 07:37 Pulse 71 12/26/23 08:20 Resp 17 12/26/23 08:20 BP 175/91 12/26/23 07:37 Pulse Ox 99 12/26/23 07:37 FiO2 Intake & Output 12/25/23 12/26/23 12/26/23 18:59 06:59 18:59 Intake Total 950 Output Total 1100 Balance -1100 950 Intake: Oral 950 Output: Urine 1100 Other: Voiding Method External Catheter External Catheter # Voids 5 # Bowel Movements 1 - Exam GENERAL DESCRIPTION: Middle-aged female lying in bed in no distress RESPIRATORY SYSTEM: Unlabored breathing , decreased breath sounds at bases HEART: S1 S2 regular rate and rhythm , ABDOMEN: Soft , no tenderness SKIN: Rash has slightly decreased in intensity no new rash noticed or any vesicles - Labs CBC & Chem 7: 12/22/23 02:52 12/26/23 04:28 Labs: Abnormal Lab Results - Last 24 Hours (Table) 12/26/23 Range/Units 04:28 Sodium 134 L (135-145) mmol/L Carbon Dioxide 18.3 L (21.6-31.8) mmol/L Anion Gap 16.70 H (4.00-12.00) mmol/L Creatinine 0.4 L (0.6-1.5) mg/dL BUN/Creatinine Ratio 43.00 H (12.00-20.00) Ratio Glucose 231 H (70-110) mg/dL Calcium 8.3 L (8.7-10.3) mg/dL Assessment and Plan (1) Rash Current Visit: Yes Status: Acute Code(s): R21 - RASH AND OTHER NONSPECIFIC SKIN ERUPTION SNOMED Code(s): 291619025 Plan: 1patient presented hospital extensive rash more likely drug rash with no evidence of any mucous membrane involvement or any joint swelling, the offending drug is not very clear as the patient denies any new medication questionably to alcoholism versus rheumatological disorder 2-patient rash has decreased in intensity consider longer and higher dose tapering course of prednisone on discharge and follow-up with dermatology in out patient setting 3-positive UA but no urinary symptoms asymptomatic bacteriuria, no need for antibiotics Dictation was produced using [employer] dictation software. please excuse any grammatical, word or spelling errors. Time with Patient: Less than 30
[2023-12-26 14:44] LABS: C-ANCA <1:20 Titer (<1:20)
[2023-12-26 14:56] LABS: C5 Complement Functional 57 U/mL (29 - 53)
--- NOTE | 2023-12-26 17:28 | P.PN ---
Subjective Progress Note Date: 12/26/23 This is a pleasant 63 years old female with past medical history of multiple medical problems including alcohol use disorder. She presents today because of rash that extends all over her body Patient was evaluated about less than a week ago with in the emergency room and by Dr. Begum for her rash and patient states she has been prescribed prednisone pill and cream which she cannot tell about rash get worse. It is itchy and little painful but there is no vesicles or pimples. There is no discharge or wounds. Patient denies sore throat Denies chest pain dyspnea, no moderate swelling, no diarrhea vomiting or abdominal pain. She states that her urine is fine with no dysuria, she had dysuria about a week ago when she was started on antibiotic but currently she denies any symptoms. No change in frequency and looks normal to her. No lower abdominal pain or flank pain as well No headache dizziness weakness or numbness. Patient smokes about half pack per day and she was counseled to quit she agrees but she declines nicotine patch. Patient drinks 1 pint of liquor and 2 beers per day as she explains for the last week. She was counseled to quit as well. No illicit drugs. Patient states she was taking her antibiotic she was prescribed last week, patient was not sure but may be Keflex. However patient stated that she is not taking currently, for the last 2 days she confirms to me she was not taking the antibiotics however the rash was getting worse. Before that she was not sure when she did she stop taking the antibiotic Patient is afebrile and vitals look stable Labs also were unremarkable except for mildly elevated white cell count 12.1 but also patient was on steroids. And AST 40. Rest of CBC, BMP liver enzymes were unremarkable Urine analysis slightly abnormal but better than before and patient is asymptomatic Alcohol level was high on admission 349 12/23/2023 Patient today has significant improvement in the intensity and to lesser degree less sepea degree of the rash , I think patient showed significant improvement related to permethrin as parasitic infection of the skin is suspected. There was also suspicion of drug allergic reaction but this is felt less likely because of the rapid response on the treatment although she started on IV Solu- Medrol 60 mg by the fact that she was not taking her antibiotic for about 2 to 3 days prior to hospitalization. Patient with no alcohol withdrawal symptoms, she is on CIWA protocol and thiamine for her alcohol use disorder Inflammatory markers like ESR is low at 4, rheumatoid factor negative SHASHA is negative. If she keeps improving may be considered for discharge in 24 to 48 hours 12/24/2023 Rash continue to improve however is not completely resolved. Still itching but better ID team on the case recommend rheumatology consult Consult Dr. Dsouza 12/25/2023 Patient rash Improving every day but not completely resolved She complains of severe itching of the buttock therefore Cream is added. Also she is given systemic She is on IV Solu-Medrol Rheumatology consult may be able to evaluate the patient this coming Tuesday tomorrow as per staff, the office is closed on weekends on 12/26/2023 patient was seen and examined on the medical floor, she is alert and oriented 3 in no apparent distress She is complaining of generalized body itching She is complaining of pain in the lower back She is very emotional occasionally crying and having mild tremor in her hands Otherwise she denies any complaints there is no fever or chills no headache or dizziness no chest pain no shortness of breath no cough no nausea or vomiting no abdominal pain no diarrhea and no urinary symptoms Objective - Vital Signs Vital signs: Vital Signs Temp 98.0 F 12/26/23 14:59 Pulse 68 12/26/23 14:59 Resp 18 12/26/23 14:59 BP 172/98 12/26/23 14:59 Pulse Ox 97 12/26/23 14:59 FiO2 Intake & Output 12/25/23 12/26/23 12/26/23 18:59 06:59 18:59 Intake Total 950 Output Total 1100 Balance -1100 950 Intake: Oral 950 Output: Urine 1100 Other: Voiding Method External Catheter External Catheter # Voids 5 2 # Bowel Movements 1 - Exam In general patient is alert and oriented x 3 in no distress HEENT head normocephalic and atraumatic Neck is supple no JVD no goiter no lymphadenopathy no carotid bruit Chest examination is clear to auscultation no crackles no wheezing Cardiac exam reveals regular heart sounds S1 and S2 no gallops no murmurs Abdomen is soft nontender no organomegaly with normal bowel sounds Extremity exam reveals no edema no cyanosis or clubbing Neurological examination reveals no gross focal deficits - Labs CBC & Chem 7: 12/22/23 02:52 12/26/23 04:28 Labs: Abnormal Lab Results - Last 24 Hours (Table) 12/23/23 12/26/23 Range/Units 08:31 04:28 Sodium 134 L (135-145) mmol/L Carbon Dioxide 18.3 L (21.6-31.8) mmol/L Anion Gap 16.70 H (4.00-12.00) mmol/L Creatinine 0.4 L (0.6-1.5) mg/dL BUN/Creatinine Ratio 43.00 H (12.00-20.00) Ratio Glucose 231 H (70-110) mg/dL Calcium 8.3 L (8.7-10.3) mg/dL Complement C5 57 H (29 - 53) U/mL Assessment and Plan Plan: Widespread maculopapular rash extending from the buttocks and the trunk and to lesser extent extremities but not the hands and soles. With no mouth ulcers but mucositis and conjunctivitis. Differential diagnosis infection like scabies, versus drug rash versus other. Most likely is parasitic infection responded well to permethrin Alcohol use disorder at risk of alcohol withdrawal Recently treated for UTI Mild leukocytosis could be secondary to above Nicotine dependence at this time I will add Ativan 0.5 mg by mouth 3 times daily as needed Possible discharge to home tomorrow if stable
[2023-12-26] MEDS: LORazepam 0.5 MG TAB PO PRN (21:48)
[2023-12-27 04:34] VITALS: PULSE 72
[2023-12-27 08:43] VITALS: BP 176/93; RESP 18; TEMP 98.9
[2023-12-27 08:48] LABS: Basophils # (A) 0.04 X 10*3/uL (0.00-0.10); Basophils % (A) 0.3 %; Eosinophils # (A) 0 X 10*3/uL (0.04-0.35); Eosinophils % (A) 0 %; HCT 38.8 % (37.2-46.3); HGB 13.5 g/dL (12.0-15.0); Lymphocytes # (A) 2.03 X 10*3/uL (0.90-5.00); Lymphocytes % (A) 14.4 %; MCH 33.3 pg (27.0-32.0); MCHC 34.8 g/dL (32.0-37.0); MCV 95.8 FL (80.0-97.0); Mean Platelet Volume 10.5 FL (9.5-12.2); Monocytes # (A) 0.92 X 10*3/uL (0.20-1.00); Monocytes % (A) 6.5 %; NRBC Per 100 WBC 0 X 10*3/uL (0.00-0.01); Neutrophils # (A) 10.89 X 10*3/uL (1.80-7.70); Platelet Count 133 X 10*3/uL (140-440); RBC 4.05 X 10*6/uL (4.10-5.20); RDW 13.8 % (11.5-14.5); WBC 14.14 X 10*3/uL (4.50-10.00)
[2023-12-27 09:14] LABS: ALT 71 U/L (8-44); AST 35 U/L (13-35); Albumin 3.9 g/dL (3.8-4.9); Alkaline Phosphatase 49 U/L (41-126); Blood Urea Nitrogen 12.8 mg/dL (9.0-27.0); Calcium 8.7 mg/dL (8.7-10.3); Carbon Dioxide 21.9 mmol/L (21.6-31.8); Chloride 102 mmol/L (96-109); Globulin 2.3 g/dL (1.6-3.3); Glucose 93 mg/dL (70-110); Potassium 3.9 mmol/L (3.5-5.5); Sodium 135 mmol/L (135-145); Total Bilirubin 0.2 mg/dL (0.3-1.2); Total Protein 6.2 g/dL (6.2-8.2)
--- NOTE | 2023-12-27 09:46 | P.DS ---
Providers Date of admission: 12/22/23 04:26 Expected date of discharge: 12/27/23 Attending physician: Aileen Torres Consults: 12/22/23 10:13 Consult Physician Routine Consulting Provider: Leo Begum Consult Reason/Comments: rash, was treated for uti Do you want consulting provider notified?: Yes 12/24/23 14:08 Consult Physician Urgent Consulting Provider: Renee Dsouza Consult Reason/Comments: rash Do you want consulting provider notified?: Yes Primary care physician: Stated None Hospital Course: discharge diagnosis Widespread maculopapular rash extending from the buttocks and the trunk and to lesser extent extremities but not the hands and soles. With no mouth ulcers but mucositis and conjunctivitis. Differential diagnosis infection like scabies, versus drug rash versus other. Most likely is parasitic infection responded well to permethrin Alcohol use disorder at risk of alcohol withdrawal Recently treated for UTI Mild leukocytosis could be secondary to above Nicotine dependence hospital course This is a pleasant 63 years old female with past medical history of multiple medical problems including alcohol use disorder. She presents today because of rash that extends all over her body Patient was evaluated about less than a week ago with in the emergency room and by Dr. Begum for her rash and patient states she has been prescribed prednisone pill and cream which she cannot tell about rash get worse. It is itchy and little painful but there is no vesicles or pimples. There is no discharge or wounds. Patient denies sore throat Denies chest pain dyspnea, no moderate swelling, no diarrhea vomiting or abdominal pain. She states that her urine is fine with no dysuria, she had dysuria about a week ago when she was started on antibiotic but currently she denies any symptoms. No change in frequency and looks normal to her. No lower abdominal pain or flank pain as well No headache dizziness weakness or numbness. Patient smokes about half pack per day and she was counseled to quit she agrees but she declines nicotine patch. Patient drinks 1 pint of liquor and 2 beers per day as she explains for the last week. She was counseled to quit as well. No illicit drugs. Patient states she was taking her antibiotic she was prescribed last week, patient was not sure but may be Keflex. However patient stated that she is not taking currently, for the last 2 days she confirms to me she was not taking the antibiotics however the rash was getting worse. Before that she was not sure when she did she stop taking the antibiotic Patient is afebrile and vitals look stable Labs also were unremarkable except for mildly elevated white cell count 12.1 but also patient was on steroids. And AST 40. Rest of CBC, BMP liver enzymes were unremarkable Urine analysis slightly abnormal but better than before and patient is asymptomatic Alcohol level was high on admission 349 12/23/2023 Patient today has significant improvement in the intensity and to lesser degree less sepea degree of the rash , I think patient showed significant improvement related to permethrin as parasitic infection of the skin is suspected. There was also suspicion of drug allergic reaction but this is felt less likely because of the rapid response on the treatment although she started on IV Solu- Medrol 60 mg by the fact that she was not taking her antibiotic for about 2 to 3 days prior to hospitalization. Patient with no alcohol withdrawal symptoms, she is on CIWA protocol and thiamine for her alcohol use disorder Inflammatory markers like ESR is low at 4, rheumatoid factor negative SHASHA is negative. If she keeps improving may be considered for discharge in 24 to 48 hours 12/24/2023 Rash continue to improve however is not completely resolved. Still itching but better ID team on the case recommend rheumatology consult Consult Dr. Dsouza 12/25/2023 Patient rash Improving every day but not completely resolved She complains of severe itching of the buttock therefore Cream is added. Also she is given systemic She is on IV Solu-Medrol Rheumatology consult may be able to evaluate the patient this coming Tuesday tomorrow as per staff, the office is closed on weekends on 12/26/2023 patient was seen and examined on the medical floor, she is alert and oriented 3 in no apparent distress She is complaining of generalized body itching She is complaining of pain in the lower back She is very emotional occasionally crying and having mild tremor in her hands Otherwise she denies any complaints there is no fever or chills no headache or dizziness no chest pain no shortness of breath no cough no nausea or vomiting no abdominal pain no diarrhea and no urinary symptoms on 12/27/2023 patient is alert and oriented 3. Patient expresses that she is feeling ready to go home. Is a complaining about some generalized itching. Per infectious disease patient does not need antibiotics upon discharge patient to be DC'd on prednisone taper and follow-up with dermatology. Patient to follow- up with PCP in dermatology services for further management Patient Condition at Discharge: Stable Plan - Discharge Summary Discharge Rx Participant: No New Discharge Prescriptions: New hydrALAZINE HCL [Apresoline] 25 mg PO BID 30 Days #60 tab LORazepam [Ativan] 0.5 mg PO Q8HR PRN 3 Days #9 tab PRN Reason: Anxiety predniSONE 10 mg PO DIRECTED 12 Days #30 tab Continue Folic Acid-Vit B Complex-Vit C [Nephrocaps] 1 cap PO DAILY Multivitamins, Thera [Multivitamin (formulary)] 1 tab PO DAILY Magnesium Oxide [Mag-Ox] 400 mg PO DAILY #15 tab Nystatin 100,000 Unit/gm Powd [Mycostatin Powder] 1 applic TOPICAL TID #1 each Pantoprazole [Protonix] 40 mg PO AC-BRKFST #30 tab Thiamine [Vitamin B-1] 100 mg PO DAILY #30 tab Cholecalciferol (Vitamin D3) [Vitamin D3 (50 Mcg = 2000 Iu)] 50 mcg PO DAILY Discontinued Cephalexin [Keflex] 500 mg PO DIRECTED Discharge Medication List Multivitamins, Thera [Multivitamin (formulary)] 1 tab PO DAILY 11/27/23 [History] Magnesium Oxide [Mag-Ox] 400 mg PO DAILY #15 tab 11/29/23 [Rx] Nystatin 100,000 Unit/gm Powd [Mycostatin Powder] 1 applic TOPICAL TID #1 each 11/29/23 [Rx] Pantoprazole [Protonix] 40 mg PO AC-BRKFST #30 tab 11/29/23 [Rx] Thiamine [Vitamin B-1] 100 mg PO DAILY #30 tab 11/29/23 [Rx] Folic Acid-Vit B Complex-Vit C [Nephrocaps] 1 cap PO DAILY 12/09/23 [History] Cholecalciferol (Vitamin D3) [Vitamin D3 (50 Mcg = 2000 Iu)] 50 mcg PO DAILY 12/22/23 [History] LORazepam [Ativan] 0.5 mg PO Q8HR PRN 3 Days #9 tab 12/27/23 [Rx] hydrALAZINE HCL [Apresoline] 25 mg PO BID 30 Days #60 tab 12/27/23 [Rx] predniSONE 10 mg PO DIRECTED 12 Days #30 tab 12/27/23 [Rx] Follow up Appointment(s)/Referral(s): Nora Nguyen MD [STAFF PHYSICIAN] - 1 Week Aileen Torres MD [STAFF PHYSICIAN] - 1-2 Days Discharge/Stand Alone Forms: [facility], Outpatient Counseling, In Substance Abuse Facilities
--- NOTE | 2023-12-27 12:32 | P.PN ---
Subjective Progress Note Date: 12/27/23 Principal diagnosis: Reason for follow-up is rash Patient is a 63-year-old female past medical history significant for hypertension osteoarthritis alcoholism alcoholic hepatitis recent admission to the hospital with significant fungal dermatitis/excoriation of the bilateral gluteal area and rash responded to steroids, now presenting back to the hospital worsening rash after completion of her steroid. On today's visit that is 12/27/2023, the patient continues to be afebrile, the patient is on room air and breathing comfortably, the Pt denies having any chest pain or cough, the patient denies having any abdominal pain no vomiting or any diarrhea, rash to the most of the body has decreased in intensity no new rash has been noticed no mucous membrane lesions. Patient white count is 14.14, creatinine is 0.4 rheumatological workup was mostly negative Objective - Vital Signs Vital signs: Vital Signs Temp 98.9 F 12/27/23 07:14 Pulse 72 12/27/23 07:14 Resp 18 12/27/23 07:14 BP 176/93 12/27/23 07:14 Pulse Ox 97 12/27/23 07:14 FiO2 Intake & Output 12/26/23 12/27/23 12/27/23 18:59 06:59 18:59 Other: Voiding Method External Catheter External Catheter Bedside Commode # Voids 1 6 1 # Bowel Movements 1 5 - Exam GENERAL DESCRIPTION: Middle-aged female lying in bed in no distress RESPIRATORY SYSTEM: Unlabored breathing , decreased breath sounds at bases HEART: S1 S2 regular rate and rhythm , ABDOMEN: Soft , no tenderness SKIN: Rash has slightly decreased in intensity no new rash noticed or any vesi cles - Labs CBC & Chem 7: 12/27/23 05:47 12/27/23 05:47 Labs: Abnormal Lab Results - Last 24 Hours (Table) 12/23/23 12/27/23 12/27/23 Range/Units 08:31 05:47 05:47 WBC 14.14 H (4.50-10.00) X 10*3/uL RBC 4.05 L (4.10-5.20) X 10*6/uL MCH 33.3 H (27.0-32.0) pg Plt Count 133 L (140-440) X 10*3/uL Immature Gran # 0.26 H (0.00-0.04) X 10*3/uL Neutrophils # 10.89 H (1.80-7.70) X 10*3/uL Eosinophils # 0 L (0.04-0.35) X 10*3/uL Creatinine 0.4 L (0.6-1.5) mg/dL BUN/Creatinine Ratio 32.00 H (12.00-20.00) Ratio Total Bilirubin 0.2 L (0.3-1.2) mg/dL ALT 71 H (8-44) U/L Complement C5 57 H (29 - 53) U/mL Assessment and Plan (1) Rash Current Visit: Yes Status: Acute Code(s): R21 - RASH AND OTHER NONSPECIFIC SKIN ERUPTION SNOMED Code(s): 263790921 Plan: 1patient presented hospital extensive rash more likely drug rash with no evidence of any mucous membrane involvement or any joint swelling, the offending drug is not very clear as the patient denies any new medication questionably to alcoholism versus rheumatological disorder 2-patient did have improvement in her rash rheumatological workup is negative high clinical suspicion for possible allergic etiology she will benefit from a higher dose tapering course of prednisone on discharge and dermatology evaluation outpatient setting 3-positive UA but no urinary symptoms asymptomatic bacteriuria, no need for antibiotics Dictation was produced using [employer] dictation software. please excuse any grammatical, word or spelling errors. Time with Patient: Less than 30
== END 2023-12-27 12:35 ==
LOC: EC 01:18 → 4SSUR 04:26
PROVIDERS: ADMIT Internal Medicine; ATTEND Internal Medicine
DX: R21 Rash and other nonspecific skin eruption (principal); F10.129 Alcohol abuse with intoxication, unspecified; Y90.8 Blood alcohol level of 240 mg/100 ml or more; D72.829 Elevated white blood cell count, unspecified; F41.9 Anxiety disorder, unspecified; F17.210 Nicotine dependence, cigarettes, uncomplicated; K12.30 Oral mucositis (ulcerative), unspecified; H10.9 Unspecified conjunctivitis; I10 Essential (primary) hypertension; M19.90 Unspecified osteoarthritis, unspecified site; K70.10 Alcoholic hepatitis without ascites; Z88.2 Allergy status to sulfonamides; Z79.899 Other long term (current) drug therapy
CPT/HCPCS: 96376 ×5; 96374; 96375; 99285; 36415; 97116; 97161; 86160; 86255; 86162; 80053 ×2; 80048; 85652; 83735; 85025 ×2; 86431; 81001; 86038; 80320; G0378 ×6; J1200 ×6; J2919 ×6

== ENCOUNTER 2024-01-04 08:41 | Emergency (ER) | payer BC, OTHER ==
[2024-01-04 09:35] VITALS: RESP 16; TEMP 98
[2024-01-04] MEDS: hydrOXYzine HCL 25 MG TAB PO STA (09:41)
[2024-01-04 09:43] LABS: Basophils # (A) 0.2 k/uL (0-0.2); Basophils % (A) 2 %; Eosinophils # (A) 0.6 k/uL (0-0.7); Eosinophils % (A) 7 %; HCT 48.9 % (34.0-46.0); HGB 16.1 gm/dL (11.4-16.0); Lymphocytes # (A) 2.8 k/uL (1.0-4.8); Lymphocytes % (A) 33 %; MCH 32.7 pg (25.0-35.0); MCV 99.2 fL (80.0-100.0); Mean Platelet Volume 7.4; Monocytes # (A) 0.4 k/uL (0-1.0); Monocytes % (A) 5 %; Neutrophils # (A) 4.3 k/uL (1.3-7.7); Neutrophils % (A) 51 %; Platelet Count 234 k/uL (150-450); RBC 4.93 m/uL (3.80-5.40); RDW 13.8 % (11.5-15.5); WBC 8.4 k/uL (3.8-10.6)
[2024-01-04 10:19] VITALS: PULSE 68
--- NOTE | 2024-01-04 10:53 | ED ---
General Adult HPI - General Chief complaint: Wound/Laceration Stated complaint: Rash Time Seen by Provider: 01/04/24 08:44 Source: patient, RN notes reviewed Mode of arrival: EMS Limitations: no limitations - History of Present Illness Initial comments: 63-year-old female presents emergency department with EMS for evaluation of a rash. Patient has been in the hospital recently for alcohol intoxication and rash she has been recommended to be seen by dermatology she has not made an appointment she states the rash is itchy which is bothering her. Patient does admit that she drank last night she denies any current withdrawal symptoms. Patient denies any fevers or chills she states that she just has due to constant answer self. She has not taken any antihistamines. She denies any new medications she states that she still on steroids. - Related Data Home Medications Medication Instructions Recorded Confirmed Multivitamins, Thera [Multivitamin 1 tab PO DAILY 11/27/23 12/22/23 (formulary)] Folic Acid-Vit B Complex-Vit C 1 cap PO DAILY 12/09/23 12/22/23 [Nephrocaps] Cholecalciferol (Vitamin D3) 50 mcg PO DAILY 12/22/23 12/22/23 [Vitamin D3 (50 Mcg = 2000 Iu)] Previous Rx's Medication Instructions Recorded Magnesium Oxide [Mag-Ox] 400 mg PO DAILY #15 tab 11/29/23 Nystatin 100,000 Unit/gm Powd 1 applic TOPICAL TID #1 each 11/29/23 [Mycostatin Powder] Pantoprazole [Protonix] 40 mg PO AC-BRKFST #30 tab 11/29/23 Thiamine [Vitamin B-1] 100 mg PO DAILY #30 tab 11/29/23 LORazepam [Ativan] 0.5 mg PO Q8HR PRN 3 Days #9 tab 12/27/23 hydrALAZINE HCL [Apresoline] 25 mg PO BID 30 Days #60 tab 12/27/23 predniSONE 10 mg PO DIRECTED 12 Days #30 12/27/23 tab hydrOXYzine HCL [Atarax] 25 mg PO TID PRN #15 tab 01/04/24 Allergies Allergy/AdvReac Type Severity Reaction Status Date / Time shellfish derived [Shellfish] Allergy Severe Dyspnea Verified 12/22/23 07:23 iodine Allergy Rash/Hives Verified 12/22/23 07:23 Sulfa (Sulfonamide Allergy Rash/Hives Verified 12/22/23 07:23 Antibiotics) Review of Systems ROS Statement: Those systems with pertinent positive or pertinent negative responses have been documented in the HPI. ROS Other: All systems not noted in ROS Statement are negative. 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 History of Any Multi-Drug Resistant Organisms: None Reported Past Surgical History: Back Surgery Additional Past Surgical History / Comment(s): Cervical surgery at [facility] d/t injury, colonoscopies/benign polypectomy Past Anesthesia/Blood Transfusion Reactions: No Reported Reaction, Motion S ickness Additional Past Anesthesia/Blood Transfusion Reaction / Comment(s): PT has clausterphobia. Past Psychological History: Anxiety Smoking Status: Current some day smoker Past Alcohol Use History: Abuse, Daily, Heavy Past Drug Use History: None Reported - Past Family History Mother Family Medical History: Cancer Additional Family Medical History / Comment(s): Mother of melanoma Father Family Medical History: No Reported History Additional Family Medical History / Comment(s): Father is healthy General Exam Limitations: no limitations General appearance: alert, in no apparent distress Head exam: Present: atraumatic, normocephalic, normal inspection Eye exam: Present: normal appearance, PERRL, EOMI. Absent: scleral icterus, conjunctival injection, periorbital swelling ENT exam: Present: normal exam, normal oropharynx, mucous membranes moist Neck exam: Present: normal inspection, full ROM. Absent: tenderness, meningismus, lymphadenopathy Respiratory exam: Present: normal lung sounds bilaterally. Absent: respiratory distress, wheezes, rales, rhonchi, stridor Cardiovascular Exam: Present: regular rate, normal rhythm, normal heart sounds. Absent: systolic murmur, diastolic murmur, rubs, gallop, clicks Skin exam: Present: warm, dry, intact, normal color, rash (Diffuse rash, dry skin, excoriations noted no open lesions or sores noted.) Course Vital Signs 01/04/24 01/04/24 01/04/24 08:45 08:54 09:51 Temperature 98 F Pulse Rate 69 79 93 Respiratory 16 16 16 Rate Blood Pressure 138/101 138/105 118/70 O2 Sat by Pulse 96 99 94 L Oximetry 01/04/24 10:00 Temperature Pulse Rate 68 Respiratory 16 Rate Blood Pressure 118/70 O2 Sat by Pulse 95 Oximetry Medical Decision Making - Medical Decision Making Was pt. sent in by a medical professional or institution (, PA, MACHINE STOPPAGE F[employer]QUENCY CHECKER, urgent care, hospital, or long term...) When possible be specific @ -No Did you speak to anyone other than the patient for history (EMS, parent, family, police, friend...)? What history was obtained from this source @ -No Did you review nursing and triage notes (agree or disagree)? Why? @ -I reviewed and agree with nursing and triage notes Were old charts reviewed (outside hosp., previous admission, EMS record, old EKG, old radiological studies, urgent care reports/EKG's, long term records)? Report findings @ -Reviewed recent inpatient stay, infectious disease consult, laboratory studies including CBC and comp Differential Diagnosis (chest pain, altered mental status, abdominal pain women, abdominal pain men, vaginal bleeding, weakness, fever, dyspnea, syncope, headache, dizziness, GI bleed, back pain, seizure, CVA, palpatations, mental health, musculoskeletal)? @ -Drug reaction, fungal infection, cellulitis, pruritus, EKG interpreted by me (3pts min.). @ -None X-rays interpreted by me (1pt min.). @ -None done CT interpreted by me (1pt min.). @ -None done U/S interpreted by me (1pt. min.). @ -None done What testing was considered but not performed or refused? (CT, X-rays, U/S, labs)? Why? @ -None What meds were considered but not given or refused? Why? @ -None Did you discuss the management of the patient with other professionals (professionals i.e. , PA, MACHINE STOPPAGE F[employer]QUENCY CHECKER, lab, RT, psych nurse, social service worker, air brake man, teacher, bank operations officer, case manager specialist)? Give summary @ -No Was smoking cessation discussed for >3mins.? @ -No Was critical care preformed (if so, how long)? @ -No Were there social determinants of health that impacted care today? How? (Homelessness, low income, unemployed, alcoholism, drug addiction, transportati on, low edu. Level, literacy, decrease access to med. care, group home, rehab)? @ -No Was there de-escalation of care discussed even if they declined (Discuss DNR or withdrawal of care, Hospice)? DNR status @ -No What co-morbidities impacted this encounter? (DM, HTN, Smoking, COPD, CAD, Cancer, CVA, ARF, Chemo, Hep., AIDS, mental health diagnosis, sleep apnea, morbid obesity)? @ -Alcohol abuse Was patient admitted / discharged? Hospital course, mention meds given and route, prescriptions, significant lab abnormalities, going to OR and other pertinent info. @ -Charge patient is awake alert and orientated in no signs distress she does have a diffuse rash which has been evaluated by infectious disease they recommended dermatology follow-up. She has an appointment made by case management in the ER for Tuesday. She will be given Atarax for the itching and return plans were discussed. Undiagnosed new problem with uncertain prognosis? @ -No Drug Therapy requiring intensive monitoring for toxicity (Heparin, Nitro, Insulin, Cardizem)? @ -No Were any procedures done? @ -No Diagnosis/symptom? @ -Rash Acute, or Chronic, or Acute on Chronic? @ -Acute Uncomplicated (without systemic symptoms) or Complicated (systemic symptoms)? @ -Uncomplicated Side effects of treatment? @ -No Exacerbation, Progression, or Severe Exacerbation? @ -No Poses a threat to life or bodily function? How? (Chest pain, USA, ID, pneumonia, PE, COPD, DKA, ARF, appy, cholecystitis, CVA, Diverticulitis, Homicidal, Suicidal, threat to staff... and all critical care pts) @ -No - Lab Data Result diagrams: 01/04/24 09:20 01/04/24 10:38 Lab Results 01/04/24 01/04/24 Range/Units 09:20 10:38 WBC 8.4 (3.8-10.6) k/uL RBC 4.93 (3.80-5.40) m/uL Hgb 16.1 H (11.4-16.0) gm/dL Hct 48.9 H (34.0-46.0) % MCV 99.2 (80.0-100.0) fL MCH 32.7 (25.0-35.0) pg MCHC 33.0 (31.0-37.0) g/dL RDW 13.8 (11.5-15.5) % Plt Count 234 (150-450) k/uL MPV 7.4 Neutrophils % 51 % Lymphocytes % 33 % Monocytes % 5 % Eosinophils % 7 % Basophils % 2 % Neutrophils # 4.3 (1.3-7.7) k/uL Lymphocytes # 2.8 (1.0-4.8) k/uL Monocytes # 0.4 (0-1.0) k/uL Eosinophils # 0.6 (0-0.7) k/uL Basophils # 0.2 (0-0.2) k/uL Sodium 141 (137-145) mmol/L Potassium 4.6 (3.5-5.1) mmol/L Chloride 108 H (98-107) mmol/L Carbon Dioxide 22 (22-30) mmol/L Anion Gap 11 mmol/L BUN 11 (7-17) mg/dL Creatinine 0.43 L (0.52-1.04) mg/dL Est GFR (CKD-EPI)AfAm >90 (>60 ml/min/1.73 sqM) Est GFR (CKD-EPI)NonAf >90 (>60 ml/min/1.73 sqM) Glucose 71 L (74-99) mg/dL Calcium 7.9 L (8.4-10.2) mg/dL Magnesium 1.8 (1.6-2.3) mg/dL Total Bilirubin 0.7 (0.2-1.3) mg/dL AST 49 H (14-36) U/L ALT 47 H (4-34) U/L Alkaline Phosphatase 58 (38-126) U/L Total Protein 6.2 L (6.3-8.2) g/dL Albumin 3.4 L (3.5-5.0) g/dL Disposition Clinical Impression: Dermatitis, Rash Disposition: HOME SELF-CARE Condition: Stable Instructions (If sedation given, give patient instructions): Acute Rash (ED) Additional Instructions: Please return to the Emergency Department if symptoms worsen or any other concerns. Prescriptions: hydrOXYzine HCL [Atarax] 25 mg PO TID PRN #15 tab PRN Reason: Itching Is patient prescribed a controlled substance at d/c from ED?: No Referrals: Nora Nguyen MD [STAFF PHYSICIAN] - 01/06/24 11:15 am (Appointment with EDITH Hoffman.) None,Stated [Primary Care Provider] - 1-2 days Time of Disposition: 11:21
[2024-01-04 10:59] LABS: ALT 47 U/L (4-34); African American GFR (CKD) >90 (>60 ml/min/1.73 sqM); Albumin 3.4 g/dL (3.5-5.0); Anion Gap 11 mmol/L; Blood Urea Nitrogen 11 mg/dL (7-17); Calcium 7.9 mg/dL (8.4-10.2); Carbon Dioxide 22 mmol/L (22-30); Chloride 108 mmol/L (98-107); Glucose 71 mg/dL (74-99); Non-African American GFR(CKD) >90 (>60 ml/min/1.73 sqM); Sodium 141 mmol/L (137-145); Total Bilirubin 0.7 mg/dL (0.2-1.3); Total Protein 6.2 g/dL (6.3-8.2)
[2024-01-04 11:01] LABS: AST 49 U/L (14-36); Alkaline Phosphatase 58 U/L (38-126); Magnesium 1.8 mg/dL (1.6-2.3); Potassium 4.6 mmol/L (3.5-5.1)
[2024-01-04 11:44] VITALS: BP 134/68
== END 2024-01-04 11:42 | disposition home or self-care (01) ==
LOC: EC 08:41
DX: L30.9 Dermatitis, unspecified (principal); F17.200 Nicotine dependence, unspecified, uncomplicated; Z88.2 Allergy status to sulfonamides; Z88.5 Allergy status to narcotic agent; Z91.013 Allergy to seafood
CPT/HCPCS: 36415; 80053; 83735; 85025; 99284

== ENCOUNTER 2024-01-05 08:52 | Inpatient (IN) | payer BC, OTHER ==
--- NOTE | 2024-01-05 09:18 | ED ---
General Adult HPI - General Chief complaint: GI Bleed Stated complaint: ETOH Time Seen by Provider: 01/05/24 08:53 Source: EMS Mode of arrival: EMS Limitations: no limitations - History of Present Illness Initial comments: Dictation was produced using [employer] dictation software. please excuse any grammatical, word or spelling errors. Chief Complaint: 63-year-old alcoholic female presents emergency department for rectal pain History of Present Illness: Patient 63-year-old alcoholic female she has multiple comorbidities. She abuses alcohol daily. She states she drinks a half to a full pint of hard liquor daily. She has had withdrawals before. She last had alcohol yesterday in the evening. She called EMS today because she has been having rectal pain that has been ongoing for the last 2 to 3 days. She is also developed a persistent erythematous scaly rash throughout her lower abdomen, groin and buttocks that has been present for the last 2 weeks. Denies any fever. No nausea vomiting. She does report some blood in her stool. Patient is not the best historian. According to EMS patient was covered in feces along with smelling of Urine. Apparently patient's home was very disheveled. The ROS documented in this emergency department record has been reviewed and confirmed by me. Those systems with pertinent positive or negative responses have been documented in the HPI. All other systems are other negative and/or noncontributory. - Related Data Home Medications Medication Instructions Recorded Confirmed Multivitamins, Thera [Multivitamin 1 tab PO DAILY 11/27/23 01/05/24 (formulary)] Folic Acid-Vit B Complex-Vit C 1 cap PO DAILY 12/09/23 01/05/24 [Nephrocaps] Cholecalciferol (Vitamin D3) 50 mcg PO DAILY 12/22/23 01/05/24 [Vitamin D3 (50 Mcg = 2000 Iu)] predniSONE See Taper PO DIRECTED 01/05/24 01/05/24 Previous Rx's Medication Instructions Recorded Magnesium Oxide [Mag-Ox] 400 mg PO DAILY #15 tab 11/29/23 Nystatin 100,000 Unit/gm Powd 1 applic TOPICAL TID #1 each 11/29/23 [Mycostatin Powder] Pantoprazole [Protonix] 40 mg PO AC-BRKFST #30 tab 11/29/23 Thiamine [Vitamin B-1] 100 mg PO DAILY #30 tab 11/29/23 hydrALAZINE HCL [Apresoline] 25 mg PO BID 30 Days #60 tab 12/27/23 hydrOXYzine HCL [Atarax] 25 mg PO TID PRN #15 tab 01/04/24 Allergies Allergy/AdvReac Type Severity Reaction Status Date / Time shellfish derived [Shellfish] Allergy Severe Dyspnea Verified 01/05/24 10:40 iodine Allergy Rash/Hives Verified 01/05/24 10:40 Sulfa (Sulfonamide Allergy Rash/Hives Verified 01/05/24 10:40 Antibiotics) Review of Systems ROS Statement: Those systems with pertinent positive or pertinent negative responses have been documented in the HPI. ROS Other: All systems not noted in ROS Statement are negative. 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 History of Any Multi-Drug Resistant Organisms: None Reported Past Surgical History: AICD, Back Surgery Additional Past Surgical History / Comment(s): Cervical surgery at [facility] d/t injury, colonoscopies/benign polypectomy Past Anesthesia/Blood Transfusion Reactions: No Reported Reaction, Motion Sickness Additional Past Anesthesia/Blood Transfusion Reaction / Comment(s): PT has clausterphobia. Past Psychological History: Anxiety Smoking Status: Current some day smoker Past Alcohol Use History: Abuse, Daily, Heavy Past Drug Use History: None Reported - Past Family History Mother Family Medical History: Cancer Additional Family Medical History / Comment(s): Mother of melanoma Father Family Medical History: No Reported History Additional Family Medical History / Comment(s): Father is healthy General Exam - General Exam Comments Initial Comments: PHYSICAL EXAM: General Impression: Alert and oriented x3, not in acute distress HEENT: Normocephalic atraumatic, extra-ocular movements intact, pupils equal and reactive to light bilaterally, mucous membranes moist. Cardiovascular: Heart regular rate and rhythm Chest: Able to complete full sentences, no retractions, no tachypnea Abdomen: abdomen soft, non-tender, non-distended, no organomegaly Musculoskeletal: Pulses present and equal in all extremities, no peripheral edema Motor: no focal deficits noted Neurological: CN II-XII grossly intact, no focal motor or sensory deficits noted Skin: Scaly erythematous dermatitis to the groin, lower abdomen, lower back, buttocks and proximal lower extremities, not indurated Psych: Normal affect and mood Rectal exam: No gross blood Limitations: no limitations Course Vital Signs 01/05/24 08:57 Temperature 98.6 F Pulse Rate 80 Respiratory 18 Rate Blood Pressure 110/75 O2 Sat by Pulse 99 Oximetry - Reevaluation(s) Reevaluation #1: 01/05/24 09:19 Some history was obtained from over the phone. Apparently patient is difficult to care for. She sits in her own urine and feces. request that patient be evaluated for rehab placement. EKG Findings - EKG Comments: EKG Findings:: My EKG interpretation: Ventricular rate 77, sinus rhythm, NM interval 154, cures 100, QTc 441. No NM prolongation, no QTC prolongation, no ST or T-wave changes noted. Overall, this EKG is unremarkable Medical Decision Making - Medical Decision Making Was pt. sent in by a medical professional or institution ([facility], [employer], urgent care, hospital, or senior living...) When possible be specific @ -No Did you speak to anyone other than the patient for history (EMS, parent, family, police, friend...)? What history was obtained from this source @ -See above Did you review nursing and triage notes (agree or disagree)? Why? @ -I reviewed and agree with nursing and triage notes Were old charts reviewed (outside hosp., previous admission, EMS record, old EKG, old radiological studies, urgent care reports/EKG's, senior living records)? Report findings @ -No old charts were reviewed Differential Diagnosis (chest pain, altered mental status, abdominal pain women, abdominal pain men, vaginal bleeding, musculoskeletal, weakness, fever, dyspnea, syncope, headache, dizziness, GI bleed, back pain, seizure, CVA, palpa tations, mental health)? @ -Differential Weakness: Hypoglycemia, shock, sepsis, hyponatremia, anemia, infection, ND, ETOH, adverse medicine reaction, overdose, stroke, this is not meant to be an all-inclusive list. EKG interpreted by me (3pts min.). @ -See above X-rays interpreted by me (1pt min.). @ -None done CT interpreted by me (1pt min.). @ -CT of the abdomen pelvis shows no acute processes U/S interpreted by me (1pt. min.). @ -None done What testing was considered but not performed or refused? (CT, X-rays, U/S, labs)? Why? @ -None What meds were considered but not given or refused? Why? @ -None Did you discuss the management of the patient with other professionals (professionals i.e. , PA, [employer], lab, RT, psych nurse, director social welfare, manufacturing applications engineer, teacher, classification officer, case fitter)? Give summary @ -Case discussed with hospitalist for admission Was smoking cessation discussed for >3mins.? @ -No Was critical care preformed (if so, how long)? @ -No Were there social determinants of health that impacted care today? How? (Homelessness, low income, unemployed, alcoholism, drug addiction, transportation, low edu. Level, literacy, decrease access to med. care, prison, rehab)? @ -No Was there de-escalation of care discussed even if they declined (Discuss DNR or withdrawal of care, Hospice)? DNR status @ -No What co-morbidities impacted this encounter? (DM, HTN, Smoking, COPD, CAD, Cancer, CVA, ARF, Chemo, Hep., AIDS, mental health diagnosis, sleep apnea, morbid obesity)? @ -None Was patient admitted / discharged? Hospital course, mention meds given and route, prescriptions, significant lab abnormalities, going to OR and other pertinent info. @ -63-year-old female brought to the emergency department for what she reports was buttocks pain. Vital signs upon arrival are within acceptable limits. Patient is a alcohol dependent individual. She drinks large amounts of alcohol on a regular basis. No obvious identifiable cause of patient's pain. CT was ordered and showed no acute processes. Patient has alcohol level of 541 with alcoholic ketoacidosis. Patient would like to be admitted for treatment of alcohol withdrawal. Undiagnosed new problem with uncertain prognosis? @ -No Drug Therapy requiring intensive monitoring for toxicity (Heparin, Nitro, Insu kristin, Cardizem)? @ -No Were any procedures done? @ -No Diagnosis/symptom? Acute, or Chronic, or Acute on Chronic? Uncomplicated (without systemic symptoms) or Complicated (systemic symptoms)? @ -Alcohol intoxication Side effects of treatment? @ -No Exacerbation, Progression, or Severe Exacerbation? @ -No Poses a threat to life or bodily function? How? (Chest pain, USA, ND, pneumonia, PE, COPD, DKA, ARF, appy, cholecystitis, CVA, Diverticulitis, Homicidal, Suicidal, threat to staff... and all critical care pts) @ -yes - Lab Data Result diagrams: 01/05/24 09:17 01/05/24 09:17 Lab Results 01/05/24 01/05/24 01/05/24 Range/Units 09:17 09:17 09:17 WBC 8.8 (3.8-10.6) k/uL RBC 4.80 (3.80-5.40) m/uL Hgb 15.8 (11.4-16.0) gm/dL Hct 47.4 H (34.0-46.0) % MCV 98.8 (80.0-100.0) fL MCH 33.0 (25.0-35.0) pg MCHC 33.4 (31.0-37.0) g/dL RDW 13.7 (11.5-15.5) % Plt Count 213 (150-450) k/uL MPV 7.2 Neutrophils % 58 % Lymphocytes % 29 % Monocytes % 5 % Eosinophils % 5 % Basophils % 1 % Neutrophils # 5.1 (1.3-7.7) k/uL Lymphocytes # 2.5 (1.0-4.8) k/uL Monocytes # 0.4 (0-1.0) k/uL Eosinophils # 0.4 (0-0.7) k/uL Basophils # 0.1 (0-0.2) k/uL PT 9.8 L (10.0-12.5) sec INR 0.9 (<1.2) APTT 24.5 (22.0-30.0) sec Sodium 142 (137-145) mmol/L Potassium 3.8 (3.5-5.1) mmol/L Chloride 108 H (98-107) mmol/L Carbon Dioxide 17 L (22-30) mmol/L Anion Gap 17 mmol/L BUN 7 (7-17) mg/dL Creatinine 0.47 L (0.52-1.04) mg/dL Est GFR (CKD-EPI)AfAm >90 (>60 ml/min/1.73 sqM) Est GFR (CKD-EPI)NonAf >90 (>60 ml/min/1.73 sqM) Glucose 93 (74-99) mg/dL Plasma Lactic Acid Samuel (0.7-2.0) mmol/L Calcium 8.2 L (8.4-10.2) mg/dL Magnesium 1.8 (1.6-2.3) mg/dL Total Bilirubin 0.6 (0.2-1.3) mg/dL AST 61 H (14-36) U/L ALT 54 H (4-34) U/L Alkaline Phosphatase 77 (38-126) U/L Total Protein 6.5 (6.3-8.2) g/dL Albumin 3.7 (3.5-5.0) g/dL Stool Occult Blood (Negative) Serum Alcohol 541 H* mg/dL 01/05/24 01/05/24 Range/Units 09:17 09:26 WBC (3.8-10.6) k/uL RBC (3.80-5.40) m/uL Hgb (11.4-16.0) gm/dL Hct (34.0-46.0) % MCV (80.0-100.0) fL MCH (25.0-35.0) pg MCHC (31.0-37.0) g/dL RDW (11.5-15.5) % Plt Count (150-450) k/uL MPV Neutrophils % % Lymphocytes % % Monocytes % % Eosinophils % % Basophils % % Neutrophils # (1.3-7.7) k/uL Lymphocytes # (1.0-4.8) k/uL Monocytes # (0-1.0) k/uL Eosinophils # (0-0.7) k/uL Basophils # (0-0.2) k/uL PT (10.0-12.5) sec INR (<1.2) APTT (22.0-30.0) sec Sodium (137-145) mmol/L Potassium (3.5-5.1) mmol/L Chloride (98-107) mmol/L Carbon Dioxide (22-30) mmol/L Anion Gap mmol/L BUN (7-17) mg/dL Creatinine (0.52-1.04) mg/dL Est GFR (CKD-EPI)AfAm (>60 ml/min/1.73 sqM) Est GFR (CKD-EPI)NonAf (>60 ml/min/1.73 sqM) Glucose (74-99) mg/dL Plasma Lactic Acid Samuel 4.2 H* (0.7-2.0) mmol/L Calcium (8.4-10.2) mg/dL Magnesium (1.6-2.3) mg/dL Total Bilirubin (0.2-1.3) mg/dL AST (14-36) U/L ALT (4-34) U/L Alkaline Phosphatase (38-126) U/L Total Protein (6.3-8.2) g/dL Albumin (3.5-5.0) g/dL Stool Occult Blood Negative (Negative) Serum Alcohol mg/dL Disposition Clinical Impression: Alcohol intoxication Disposition: ADMITTED IP TO THIS HOSP Condition: Fair Referrals: None,Stated [Primary Care Provider] - 1-2 days Decision Time: 11:32
[2024-01-05] MEDS: methylPREDNISolone SOD SUCCI 125 MG/2 ML VIAL IV STA (09:25)
[2024-01-05] MEDS: FAMOTIDINE 20 MG/2 ML VIAL IV STA (09:25)
[2024-01-05] MEDS: diphenhydrAMINE 50 MG/ML 1 ML VIAL IVP STA (09:26)
[2024-01-05] MEDS: PANTOPRAZOLE 40 MG/10 ML VIAL IVP STA (09:27)
[2024-01-05 09:29] LABS: Basophils # (A) 0.1 k/uL (0-0.2); Basophils % (A) 1 %; Eosinophils # (A) 0.4 k/uL (0-0.7); Eosinophils % (A) 5 %; HCT 47.4 % (34.0-46.0); HGB 15.8 gm/dL (11.4-16.0); Lymphocytes # (A) 2.5 k/uL (1.0-4.8); Lymphocytes % (A) 29 %; MCHC 33.4 g/dL (31.0-37.0); MCV 98.8 fL (80.0-100.0); Mean Platelet Volume 7.2; Monocytes # (A) 0.4 k/uL (0-1.0); Monocytes % (A) 5 %; Neutrophils # (A) 5.1 k/uL (1.3-7.7); Neutrophils % (A) 58 %; Platelet Count 213 k/uL (150-450); RDW 13.7 % (11.5-15.5); WBC 8.8 k/uL (3.8-10.6)
[2024-01-05 09:37] LABS: INR 0.9 (<1.2); Partial Thromboplastin Time 24.5 sec (22.0-30.0); Prothrombin Time 9.8 sec (10.0-12.5)
[2024-01-05 10:02] LABS: ALT 54 U/L (4-34); AST 61 U/L (14-36); African American GFR (CKD) >90 (>60 ml/min/1.73 sqM); Albumin 3.7 g/dL (3.5-5.0); Alkaline Phosphatase 77 U/L (38-126); Anion Gap 17 mmol/L; Blood Urea Nitrogen 7 mg/dL (7-17); Calcium 8.2 mg/dL (8.4-10.2); Carbon Dioxide 17 mmol/L (22-30); Chloride 108 mmol/L (98-107); Glucose 93 mg/dL (74-99); Magnesium 1.8 mg/dL (1.6-2.3); Non-African American GFR(CKD) >90 (>60 ml/min/1.73 sqM); Potassium 3.8 mmol/L (3.5-5.1); Sodium 142 mmol/L (137-145); Total Bilirubin 0.6 mg/dL (0.2-1.3); Total Protein 6.5 g/dL (6.3-8.2)
[2024-01-05 10:16] LABS: Alcohol 541 mg/dL
--- NOTE | 2024-01-05 11:09 | CT ---
EXAMINATION TYPE: CT abdomen pelvis w con CT DLP: 827.9 mGycm, Automated exposure control for dose reduction was used. DATE OF EXAM: 01/05/2024 10:41 AM COMPARISON: CT abdomen 10/15/2023 CLINICAL INDICATION:Female, 63 years old with history of rectal pain; abdominal pain TECHNIQUE: Axial CT abdomen pelvis w con;Sagittal and coronal reformats were created on a separate w orkstation. Contrast used:100 mL of Isovue 300 with IV Contrast, (none if empty) Oral contrast used: without Oral Contrast (none if empty) FINDINGS: LOWER CHEST: Unremarkable ABDOMEN LIVER: Unremarkable GALLBLADDER AND BILE DUCTS: Possible large gallstone with indistinct margins or sludge. PANCREAS: Unremarkable. SPLEEN: Unremarkable. ADRENAL GLANDS: Unremarkable. KIDNEYS AND URETERS: No evidence of hydronephrosis or renal calculus. The ureters are unremarkable. PELVIS BLADDER: Unremarkable REPRODUCTIVE: Unremarkable. ABDOMEN & PELVIS STOMACH AND BOWEL: Stomach and duodenum are unremarkable. No evidence of bowel obstruction. PERITONEUM/RETROPERITONEUM: No evidence of pneumoperitoneum or free fluid. VASCULATURE: No evidence of aortic aneurysm. MUSCULOSKELETAL: No acute osseous abnormalities LYMPH NODES: No gross evidence for lymphadenopathy. SOFT TISSUE/ABDOMINAL WALL: Unremarkable IMPRESSION: 1. No acute process involving the rectum. No acute process otherwise. 2. Possible gallbladder sludge or large stone. Ultrasound follow-up recommended if clinically indicat ed.
[2024-01-05] MEDS ORDERED: NALOXONE 0.4 MG/ML 1 ML VIAL IV PRN (11:28)
--- NOTE | 2024-01-05 12:13 | P.HPIM ---
History of Present Illness H&P Date: 01/05/24 History of Presenting Illness: Patient is a 63-year-old female with a past medical history of alcoholism reportedly drinking 2 pints of whiskey daily, hypertension, osteoarthritis, previous cervical spinal injury resulting in chronic pain and neuropathies, urinary incontinence, and nicotine dependence. Patient presented to the hospital via EMS for alcohol intoxication and concerns of burning/pain to buttocks. Upon arrival to the emergency department patient underwent evaluation. Vital signs upon arrival show blood pressure 110/75, heart rate 80, respiratory rate 18, temp 98.6 F, and SpO2 of 99% on room air. EKG was completed showing normal sinus rhythm at 77 bpm. Labs completed and reviewed. CBC showing no significant abnormalities. Coagulation profile showing low PT of 9.8 otherwise normal findings. BMP showing metabolic acidosis with chloride of 108, bicarb 17, and anion gap elevated at 17. Blood glucose was 93. Lactic acid elevated at 4.2. Magnesium 1.8. Liver profile showing elevated AST of 61 and ALT of 54. Occult stool was negative. Serum alcohol level significantly elevated at 541. CT abdomen and pelvis with contrast was completed negative for acute intra-abdominal process and showing no acute process involving the rectum, did reveal possible gallbladder sludge or large stone. Upon examination at bedside, patient awake and alert despite blood alcohol level of 541. She reports drinking 2 pints of whiskey daily and reports pain and burning to her entire backside and found to have significant excoriation along with bright red yeast appearing rash to groin/perineal region. Per ED staff patient's states patient sits on the couch and does not get up only to get more alcohol. Patient reports she is incontinent of her urine and stool and this is her baseline. Patient reports she lives at home with her , 8 cats, and 2 dogs. Patient reports she is not able to get up to use the restroom and when asked how she gets her alcohol, patient states "I have no problems getting myself to the store." Per ED staff, patient's called EMS and stated he cannot take care of himself let alone take care of her anymore. Patient reports generalized pain and itching as well as pain in her right upper quadrant. Upon examination patient appeared to be more tender in epigastric region. She is intoxicated but denies having any headache, lightheadedness, dizziness, chest pain, palpitations, shortness of breath or experiencing any new or worsening numbness/tingling/weakness in her extremities. Review of systems: Pertinent positives and negatives as discussed in HPI, a complete review of systems was performed and all other systems are negative. Physical exam: Vital signs reviewed and stable. General: Nontoxic, no distress and appears stated age. Disheveled appearance. Derm: Skin warm and dry, normal coloration for ethnicity. pt with excoriated rash covering back with multiple abrasions/scratch rivera, along with rash to chest, and abdomen. She has significant erythema and excoriation to groin/per itoneal region. Old bruising in different stages of healing to bilateral upper and lower extremities. Head: Atraumatic, normocephalic and symmetric. Eyes: EOMs intact, no lid lag, and anicteric sclera Mouth: no lip lesions, mucus membranes moist Cardiovascular: regular rate and rhythm with normal S1S2, no murmur, positive posterior tibial pulses bilaterally, and cap refill < 2 seconds. Lungs: Respirations even, regular, and unlabored on room air. Lungs CTA bilaterally, no rhonchi, no rales, no wheezing, and no accessory muscle usage. Abdominal: soft, nontender to palpation, no guarding, no appreciable organomegaly Ext: ROM intact. No gross muscle atrophy, no edema, no contractures Neuro: Speech clear, face symmetrical and CN II-XII grossly intact with no noted focal neuro deficits Psych: Alert and oriented to person, place, time, and situation. Appropriate and pleasant affect. Assessment and Plan of Care: Alcohol intoxication in active alcoholic High anion gap metabolic acidosis Lactic acidosis, likely alcoholic ketoacidosis Right upper quadrant abdominal pain Elevated liver enzymes, likely secondary to daily alcohol abuse however cannot rule out cholecystitis Pending alcohol withdraw -Blood alcohol 541 -Order placed for monitoring of CIWA scores and patient to be medicated with Ativan 0.5 mg every 4 hours as needed for CIWA score of 4-5, Ativan 1 mg every 4 hours for CIWA score of 6-7, Ativan 2 mg every 3 hours CIWA score of 8-9, and Ativan 2 mg every 2 hours forr CIWA score of 10 or greater. -Continuous IV hydration with 0.9% normal saline at 130 cc/h. -Thiamine 100 mg daily, Multivitamin daily, and Folate 1 mg daily. -Seizure, fall, aspiration, and elopement precautions in place. -Continued close monitoring of electrolytes and replace as needed. -Telemetry monitoring. -CT abdomen and pelvis revealed large gallstone with sludge, secondary to these findings and patient's reports of tenderness consult placed to general surgery to evaluate. Contact dermatitis with significant excoriation Perineal candidiasis -Likely secondary to irritation and unsanitary conditions, lying in her feces and urine for prolonged periods. -Order placed for nystatin ointment to be applied 3 times daily along with nystatin powder. -Continue with hydroxyzine 25 mg 3 times daily as needed for itching. -Consult placed to wound care for evaluation. Hypertension -Patient to continue daily medication regimen with hydralazine 25 mg twice daily. Data and imaging reviewed: -As stated above in HPI The patient is admitted with an anticipated greater than 2 midnight stay for evaluation of alcohol intoxication, high anion gap metabolic acidosis CODE STATUS: Full code DVT prophylaxis: Lovenox Anticipated discharge date: Clinical course to determine Anticipated discharge place: Home Patient was seen independently by Nurse Practitioner. This document was prepared using [employer] dictation software. Please allow for errors in information technology professor while rare they do occur. Cory Gama NP rendered care for this patient independently, reviewed the findings and plan as documented in the note above. I did not physically speak with or examine the patient on this date. 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 History of Any Multi-Drug Resistant Organisms: None Reported Past Surgical History: AICD, Back Surgery Additional Past Surgical History / Comment(s): Cervical surgery at [facility] d/t injury, colonoscopies/benign polypectomy Past Anesthesia/Blood Transfusion Reactions: No Reported Reaction, Motion Sickness Additional Past Anesthesia/Blood Transfusion Reaction / Comment(s): PT has clausterphobia. Past Psychological History: Anxiety Smoking Status: Current some day smoker Past Alcohol Use History: Abuse, Daily, Heavy Past Drug Use History: None Reported - Past Family History Mother Family Medical History: Cancer Additional Family Medical History / Comment(s): Mother of melanoma Father Family Medical History: No Reported History Additional Family Medical History / Comment(s): Father is healthy Medications and Allergies Home Medications Medication Instructions Recorded Confirmed Type Multivitamins, Thera [Multivitamin 1 tab PO DAILY 11/27/23 01/05/24 History (formulary)] Magnesium Oxide [Mag-Ox] 400 mg PO DAILY #15 tab 11/29/23 01/05/24 Rx Nystatin 100,000 Unit/gm Powd 1 applic TOPICAL TID #1 each 11/29/23 01/05/24 Rx [Mycostatin Powder] Pantoprazole [Protonix] 40 mg PO AC-BRKFST #30 tab 11/29/23 01/05/24 Rx Thiamine [Vitamin B-1] 100 mg PO DAILY #30 tab 11/29/23 01/05/24 Rx Folic Acid-Vit B Complex-Vit C 1 cap PO DAILY 12/09/23 01/05/24 History [Nephrocaps] Cholecalciferol (Vitamin D3) 50 mcg PO DAILY 12/22/23 01/05/24 History [Vitamin D3 (50 Mcg = 2000 Iu)] hydrALAZINE HCL [Apresoline] 25 mg PO BID 30 Days #60 tab 12/27/23 01/05/24 Rx hydrOXYzine HCL [Atarax] 25 mg PO TID PRN #15 tab 01/04/24 01/05/24 Rx predniSONE See Taper PO DIRECTED 01/05/24 01/05/24 History Allergies Allergy/AdvReac Type Severity Reaction Status Date / Time shellfish derived [Shellfish] Allergy Severe Dyspnea Verified 01/05/24 10:40 iodine Allergy Rash/Hives Verified 01/05/24 10:40 Sulfa (Sulfonamide Allergy Rash/Hives Verified 01/05/24 10:40 Antibiotics) Physical Exam Vitals: Vital Signs Temp Pulse Resp BP Pulse Ox 01/05/24 08:57 98.6 F 80 18 110/75 99 Intake and Output 01/04/24 01/05/24 01/05/24 22:59 06:59 14:59 Other: Weight 72.575 kg Results CBC & Chem 7: 04/27/24 06:35 01/07/24 06:35 Labs: Abnormal Lab Results - Last 24 Hours (Table) 01/05/24 01/05/24 01/05/24 Range/Units 09:17 09:17 09:17 Hct 47.4 H (34.0-46.0) % PT 9.8 L (10.0-12.5) sec Chloride 108 H (98-107) mmol/L Carbon Dioxide 17 L (22-30) mmol/L Creatinine 0.47 L (0.52-1.04) mg/dL Plasma Lactic Acid Samuel (0.7-2.0) mmol/L Calcium 8.2 L (8.4-10.2) mg/dL AST 61 H (14-36) U/L ALT 54 H (4-34) U/L Serum Alcohol 541 H* mg/dL 01/05/24 Range/Units 09:17 Hct (34.0-46.0) % PT (10.0-12.5) sec Chloride (98-107) mmol/L Carbon Dioxide (22-30) mmol/L Creatinine (0.52-1.04) mg/dL Plasma Lactic Acid Samuel 4.2 H* (0.7-2.0) mmol/L Calcium (8.4-10.2) mg/dL AST (14-36) U/L ALT (4-34) U/L Serum Alcohol mg/dL
[2024-01-05] MEDS: THIAMINE 100 MG/ML 2 ML VIAL IM STA (12:21)
[2024-01-05] MEDS: SODIUM CHLORIDE 0.9% 1,000 ML IV SCH (12:22)
[2024-01-05] MEDS: NYSTATIN 100,000 UNIT/GM OINT 30 GM TUBE TOPICAL SCH (17:25)
[2024-01-05] MEDS: LORazepam 1 MG TAB PO PRN (17:29)
[2024-01-05] MEDS: NYSTATIN 100,000 UNIT/GM POWD 15 GM TOPICAL SCH (17:48)
[2024-01-05] MEDS: hydrALAZINE HCL 25 MG TAB PO SCH (21:13)
[2024-01-05] MEDS: LORazepam 2 MG/ML INJ IV PRN (22:21)
[2024-01-06] MEDS: LORazepam 2 MG/ML INJ IV PRN ×2 (03:10→21:57)
[2024-01-06 04:33] LABS: HCT 43.6 % (34.0-46.0); HGB 14.4 gm/dL (11.4-16.0); MCH 33.2 pg (25.0-35.0); MCV 100.4 fL (80.0-100.0); Mean Platelet Volume 8.7; Platelet Count 157 k/uL (150-450); RBC 4.34 m/uL (3.80-5.40); RDW 13.8 % (11.5-15.5); WBC 5.1 k/uL (3.8-10.6)
[2024-01-06 04:45] LABS: ALT 73 U/L (4-34); AST 97 U/L (14-36); African American GFR (CKD) >90 (>60 ml/min/1.73 sqM); Albumin 3.8 g/dL (3.5-5.0); Alkaline Phosphatase 94 U/L (38-126); Anion Gap 9 mmol/L; Blood Urea Nitrogen 8 mg/dL (7-17); Calcium 8.3 mg/dL (8.4-10.2); Carbon Dioxide 22 mmol/L (22-30); Chloride 100 mmol/L (98-107); Glucose 144 mg/dL (74-99); Magnesium 1.5 mg/dL (1.6-2.3); Non-African American GFR(CKD) >90 (>60 ml/min/1.73 sqM); Potassium 4.2 mmol/L (3.5-5.1); Sodium 131 mmol/L (137-145); Total Protein 6.6 g/dL (6.3-8.2)
[2024-01-06] MEDS: PANTOPRAZOLE 40 MG TABLET PO SCH (08:00)
[2024-01-06] MEDS: MAGNESIUM SULFATE-D5W PMX 1 GM in DEXTROSE/WATER 1 100ML.BAG IVPB SCH ×2 (09:19→14:46)
[2024-01-06] MEDS: chlordiazePOXIDE 25 MG CAP PO SCH (09:23)
[2024-01-06] MEDS: FOLIC ACID 1 MG TAB PO SCH (09:23)
[2024-01-06] MEDS: CHOLECALCIFEROL 25 MCG (1000 IU) TABLET PO SCH (09:23)
[2024-01-06] MEDS: LORazepam 1 MG TAB PO PRN (09:23)
[2024-01-06] MEDS: THIAMINE 100 MG TAB PO SCH (09:23)
[2024-01-06] MEDS: ENOXAPARIN 40 MG/0.4 ML SYRINGE SQ SCH (09:24)
[2024-01-06] MEDS: MAGNESIUM OXIDE 400 MG TAB PO SCH (09:28)
[2024-01-06] MEDS: MULTIVITAMINS, THERA 1 EACH TAB PO SCH (09:28)
[2024-01-06] MEDS: FOLIC ACID-VIT B COMPLEX-VIT C 1 CAP PO SCH (09:28)
[2024-01-06] MEDS: LORazepam 0.5 MG TAB PO PRN (13:20)
--- NOTE | 2024-01-06 14:15 | P.PN ---
Subjective Progress Note Date: 01/06/24 Hospital Course: Patient is a 63-year-old female with a past medical history of alcoholism reportedly drinking 2 pints of whiskey daily, hypertension, osteoarthritis, previous cervical spinal injury resulting in chronic pain and neuropathies, urinary incontinence, and nicotine dependence. Patient presented to the hospital via EMS for alcohol intoxication and concerns of burning/pain to buttocks. Upon arrival to the emergency department patient underwent kosta luation. Vital signs upon arrival show blood pressure 110/75, heart rate 80, respiratory rate 18, temp 98.6 F, and SpO2 of 99% on room air. EKG was completed showing normal sinus rhythm at 77 bpm. Labs completed and reviewed. CBC showing no significant abnormalities. Coagulation profile showing low PT of 9.8 otherwise normal findings. BMP showing metabolic acidosis with chloride of 108, bicarb 17, and anion gap elevated at 17. Blood glucose was 93. Lactic acid elevated at 4.2. Magnesium 1.8. Liver profile showing elevated AST of 61 and ALT of 54. Occult stool was negative. Serum alcohol level significantly elevated at 541. CT abdomen and pelvis with contrast was completed negative for acute intra-abdominal process and showing no acute process involving the rectum, did reveal possible gallbladder sludge or large stone. Patient was admitted under services with consultation to general surgery. Physical exam: Patient seen and fully evaluated at bedside this morning. She is currently free from any pain or complaints in her abdomen/epigastric region this morning. She reports feeling anxious and jittery from withdrawal. She currently denies having any nausea or vomiting. Vital signs reviewed and stable. General: Nontoxic, no distress and appears stated age. Disheveled appearance. Derm: Skin warm and dry, normal coloration for ethnicity. pt with excoriated rash covering back with multiple abrasions/scratch rivera, along with rash to chest, and abdomen. She has significant erythema and excoriation to groin/peritoneal region. Old bruising in different stages of healing to bilateral upper and lower extremities. Head: Atraumatic, normocephalic and symmetric. Eyes: EOMs intact, no lid lag, and anicteric sclera Mouth: no lip lesions, mucus membranes moist Cardiovascular: regular rate and rhythm with normal S1S2, no murmur, positive posterior tibial pulses bilaterally, and cap refill < 2 seconds. Lungs: Respirations even, regular, and unlabored on room air. Lungs CTA bilaterally, no rhonchi, no rales, no wheezing, and no accessory muscle usage. Abdominal: soft, nontender to palpation, no guarding, no appreciable organomegaly Ext: ROM intact. No gross muscle atrophy, no edema, no contractures Neuro: Speech clear, face symmetrical and CN II-XII grossly intact with no noted focal neuro deficits Psych: Alert and oriented to person, place, time, and situation. Appropriate and pleasant affect. Assessment and Plan of Care: Alcohol intoxication in active alcoholic High anion gap metabolic acidosis Lactic acidosis, likely alcoholic ketoacidosis. Resolved. Right upper quadrant abdominal pain Elevated liver enzymes, likely secondary to daily alcohol abuse however cannot rule out cholecystitis Pending alcohol withdraw -Blood alcohol upon arrival 541 -Order placed for monitoring of CIWA scores and patient to be medicated with Ativan 0.5 mg every 4 hours as needed for CIWA score of 4-5, Ativan 1 mg every 4 hours for CIWA score of 6-7, Ativan 2 mg every 3 hours CIWA score of 8-9, and Ativan 2 mg every 2 hours forr CIWA score of 10 or greater. -Continue daily medication regimen with thiamine 100 mg daily, Multivitamin daily, and Folate 1 mg daily. -Continue seizure, fall, aspiration, and elopement precautions. -Continued close monitoring of electrolytes and replace as needed. -Telemetry monitoring. -CT abdomen and pelvis revealed large gallstone with sludge, secondary to these findings and patient's reports of tenderness consult placed to general surgery to evaluate. Contact dermatitis with significant excoriation Perineal candidiasis -Likely secondary to irritation and unsanitary conditions, lying in her feces and urine for prolonged periods. -Patient given single dose of Solu-Medrol 125 mg IVP x 1 dose. -Order placed for nystatin ointment to be applied 3 times daily along with nystatin powder. -Continue with hydroxyzine 25 mg 3 times daily as needed for itching. -Consult placed to wound care for evaluation and further recommendations. Hypertension -Patient to continue daily medication regimen with hydralazine 25 mg twice daily. Data and imaging reviewed: -Morning labs reviewed. CBC showing macrocytosis with WBC count of 100.4 otherwise normal findings. BMP showing hyponatremia with sodium of 133 and mild hyperglycemia with glucose of 144. Lactic acidosis resolved with morning lactate of 1.8. Magnesium was low at 1.5. Liver profile showing elevated AST of 97 and ALT of 73 otherwise normal findings. -Blood pressure 132/103, heart rate 92, respiratory rate 16, and SpO2 of 99% on room air. CODE STATUS: Full code DVT prophylaxis: Lovenox Anticipated discharge date: Clinical course to determine Anticipated discharge place: Home Patient was seen independently by Nurse Practitioner. This document was prepared using [employer] dictation software. Please allow for errors in neck band setter while rare they do occur. Cory Gama RETOUCHER rendered care for this patient independently, reviewed the findings and plan as documented in the note above. I did not physically speak with or examine the patient on this date. Objective - Vital Signs Vital signs: Vital Signs Temp 98.6 F 01/05/24 08:57 Pulse 92 01/06/24 07:59 Resp 16 01/06/24 07:59 BP 132/103 01/06/24 07:59 Pulse Ox 99 01/06/24 07:59 FiO2 Intake & Output 01/05/24 01/06/24 01/06/24 18:59 06:59 18:59 Weight 72.575 kg - Labs CBC & Chem 7: 01/07/24 06:35 01/07/24 06:35 Labs: Abnormal Lab Results - Last 24 Hours (Table) 01/05/24 01/05/24 01/05/24 Range/Units 09:17 09:17 09:17 Hct 47.4 H (34.0-46.0) % MCV (80.0-100.0) fL PT 9.8 L (10.0-12.5) sec Sodium (137-145) mmol/L Chloride 108 H (98-107) mmol/L Carbon Dioxide 17 L (22-30) mmol/L Creatinine 0.47 L (0.52-1.04) mg/dL Glucose (74-99) mg/dL Plasma Lactic Acid Samuel (0.7-2.0) mmol/L Calcium 8.2 L (8.4-10.2) mg/dL Magnesium (1.6-2.3) mg/dL AST 61 H (14-36) U/L ALT 54 H (4-34) U/L Serum Alcohol 541 H* mg/dL 01/05/24 01/05/24 01/05/24 Range/Units 09:17 14:06 17:17 Hct (34.0-46.0) % MCV (80.0-100.0) fL PT (10.0-12.5) sec Sodium (137-145) mmol/L Chloride (98-107) mmol/L Carbon Dioxide (22-30) mmol/L Creatinine (0.52-1.04) mg/dL Glucose (74-99) mg/dL Plasma Lactic Acid Samuel 4.2 H* 3.6 H* 3.8 H* (0.7-2.0) mmol/L Calcium (8.4-10.2) mg/dL Magnesium (1.6-2.3) mg/dL AST (14-36) U/L ALT (4-34) U/L Serum Alcohol mg/dL 01/05/24 01/05/24 01/06/24 Range/Units 20:22 23:30 04:05 Hct (34.0-46.0) % MCV 100.4 H (80.0-100.0) fL PT (10.0-12.5) sec Sodium (137-145) mmol/L Chloride (98-107) mmol/L Carbon Dioxide (22-30) mmol/L Creatinine (0.52-1.04) mg/dL Glucose (74-99) mg/dL Plasma Lactic Acid Samuel 3.4 H* 3.4 H* (0.7-2.0) mmol/L Calcium (8.4-10.2) mg/dL Magnesium (1.6-2.3) mg/dL AST (14-36) U/L ALT (4-34) U/L Serum Alcohol mg/dL 01/06/24 Range/Units 04:05 Hct (34.0-46.0) % MCV (80.0-100.0) fL PT (10.0-12.5) sec Sodium 131 L (137-145) mmol/L Chloride (98-107) mmol/L Carbon Dioxide (22-30) mmol/L Creatinine 0.39 L (0.52-1.04) mg/dL Glucose 144 H (74-99) mg/dL Plasma Lactic Acid Samuel (0.7-2.0) mmol/L Calcium 8.3 L (8.4-10.2) mg/dL Magnesium 1.5 L (1.6-2.3) mg/dL AST 97 H (14-36) U/L ALT 73 H (4-34) U/L Serum Alcohol mg/dL
[2024-01-06] MEDS: KETOROLAC 15 MG/ML 1 ML VIAL IVP STA (14:43)
--- NOTE | 2024-01-06 16:40 | P.GSCN ---
History of Present Illness Consult date: 01/06/24 History of present illness: CHIEF COMPLAINT: Pain in the rectum HISTORY OF PRESENT ILLNESS: This is a 63-year-old female who presented to the hospital via EMS for alcohol intoxication and concerns of pain and burning sensation in the rectum. Patient denies any nausea or vomiting. She denies any abdominal pain currently. CT scan abdomen and pelvis completed had showed no acute process involving the rectum. Did report possible gallbladder sludge or large stones. Surgical service consulted for abdominal pain and gallstones noted on CAT scan. Patient does have mildly elevated LFTs. But does report to heavy alcohol use daily. Last alcoholic drink was yesterday. Per chart there has been report of patient complaining of right upper quadrant pain. At this t laurence patient has no abdominal pain. Patient has been seen and examined by Dr. Matos PAST MEDICAL HISTORY: See below PAST SURGICAL HISTORY: See below MEDICATIONS: See below ALLERGIES: See below SOCIAL HISTORY: No illicit drug use. REVIEW OF SYSTEMS: CONSTITUTIONAL: Denies fever or chills. HEENT: Denies blurred vision, vision changes, or eye pain. Denies hemoptysis CARDIOVASCULAR: Denies chest pain or pressure. RESPIRATORY: No shortness of breath. GASTROINTESTINAL: See HPI for pertinent findings HEMATOLOGIC: Denies bleeding disorders. GENITOURINARY: Denies any blood in urine or increased urinary frequency. SKIN: Denies pruitis. Denies rash. PHYSICAL EXAM: VITAL SIGNS: Reviewed GENERAL: Well-developed in no acute distress. HEENT: No sclera icterus. Extraocular movements grossly intact. Moist buccal mucosa. Head is atraumatic, normocephalic. No nasal drainage. ABDOMEN: Soft. Nondistended. Nontender NEUROLOGIC: awake and alert LABORATORY DATA: WBC 5.1 HGB 14.4 Plt 157 Na 131 K 4.2 Cr 0.39 total bili 1.5 AST 97 ALT 73 Serum ETOH 541 IMAGING: CT scan abdomen pelvis reports no acute process involving the rectum. No acute process otherwise. Possible gallbladder sludge or large stone. ASSESSMENT: 1. Cholecystitis with CT scan reporting gallbladder sludge or large gallstone 2. Alcohol intoxication 3. Mildly elevated LFTs and total bili PLAN: -Patient scheduled for laparoscopic cholecystectomy on Tuesday with Dr. Matos -Recommend low-fat diet -Repeat labs in a.m. Physician Stem Assembler note has been reviewed by physician. Signing provider agrees with the documented findings, assessment, and plan of care. 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 History of Any Multi-Drug Resistant Organisms: None Reported Past Surgical History: AICD, Back Surgery Additional Past Surgical History / Comment(s): Cervical surgery at [facility] d/t injury, colonoscopies/benign polypectomy Past Anesthesia/Blood Transfusion Reactions: No Reported Reaction, Motion Sickness Additional Past Anesthesia/Blood Transfusion Reaction / Comm: PT has clausterphobia. Past Psychological History: Anxiety Smoking Status: Current some day smoker Past Alcohol Use History: Abuse, Daily, Heavy Past Drug Use History: None Reported - Past Family History Mother Family Medical History: Cancer Additional Family Medical History / Comment(s): Mother of melanoma Father Family Medical History: No Reported History Additional Family Medical History / Comment(s): Father is healthy Medications and Allergies Home Medications Medication Instructions Recorded Confirmed Type Multivitamins, Thera [Multivitamin 1 tab PO DAILY 11/27/23 01/05/24 History (formulary)] Magnesium Oxide [Mag-Ox] 400 mg PO DAILY #15 tab 11/29/23 01/05/24 Rx Nystatin 100,000 Unit/gm Powd 1 applic TOPICAL TID #1 each 11/29/23 01/05/24 Rx [Mycostatin Powder] Pantoprazole [Protonix] 40 mg PO AC-BRKFST #30 tab 11/29/23 01/05/24 Rx Thiamine [Vitamin B-1] 100 mg PO DAILY #30 tab 11/29/23 01/05/24 Rx Folic Acid-Vit B Complex-Vit C 1 cap PO DAILY 12/09/23 01/05/24 History [Nephrocaps] Cholecalciferol (Vitamin D3) 50 mcg PO DAILY 12/22/23 01/05/24 History [Vitamin D3 (50 Mcg = 2000 Iu)] hydrALAZINE HCL [Apresoline] 25 mg PO BID 30 Days #60 tab 12/27/23 01/05/24 Rx hydrOXYzine HCL [Atarax] 25 mg PO TID PRN #15 tab 01/04/24 01/05/24 Rx predniSONE See Taper PO DIRECTED 01/05/24 01/05/24 History Allergies Allergy/AdvReac Type Severity Reaction Status Date / Time shellfish derived [Shellfish] Allergy Severe Dyspnea Verified 01/05/24 10:40 iodine Allergy Rash/Hives Verified 01/05/24 10:40 Sulfa (Sulfonamide Allergy Rash/Hives Verified 01/05/24 10:40 Antibiotics) Surgical - Exam Vital Signs Temp Pulse Resp BP Pulse Ox 98.6 F 80 18 110/75 99 01/05/24 08:57 01/05/24 08:57 01/05/24 08:57 01/05/24 08:57 01/05/24 08:57 Results - Labs 01/06/24 04:05 01/06/24 04:05 Abnormal Lab Results - Last 24 Hours (Table) 01/05/24 01/05/24 01/05/24 Range/Units 14:06 17:17 20:22 MCV (80.0-100.0) fL Sodium (137-145) mmol/L Creatinine (0.52-1.04) mg/dL Glucose (74-99) mg/dL Plasma Lactic Acid Samuel 3.6 H* 3.8 H* 3.4 H* (0.7-2.0) mmol/L Calcium (8.4-10.2) mg/dL Magnesium (1.6-2.3) mg/dL AST (14-36) U/L ALT (4-34) U/L 01/05/24 01/06/24 01/06/24 Range/Units 23:30 04:05 04:05 MCV 100.4 H (80.0-100.0) fL Sodium 131 L (137-145) mmol/L Creatinine 0.39 L (0.52-1.04) mg/dL Glucose 144 H (74-99) mg/dL Plasma Lactic Acid Samuel 3.4 H* (0.7-2.0) mmol/L Calcium 8.3 L (8.4-10.2) mg/dL Magnesium 1.5 L (1.6-2.3) mg/dL AST 97 H (14-36) U/L ALT 73 H (4-34) U/L Diabetes panel 01/06/24 Range/Units 04:05 Sodium 131 L (137-145) mmol/L Potassium 4.2 (3.5-5.1) mmol/L Chloride 100 (98-107) mmol/L Carbon Dioxide 22 (22-30) mmol/L BUN 8 (7-17) mg/dL Creatinine 0.39 L (0.52-1.04) mg/dL Glucose 144 H (74-99) mg/dL Calcium 8.3 L (8.4-10.2) mg/dL AST 97 H (14-36) U/L ALT 73 H (4-34) U/L Alkaline Phosphatase 94 (38-126) U/L Total Protein 6.6 (6.3-8.2) g/dL Albumin 3.8 (3.5-5.0) g/dL Calcium panel 01/06/24 Range/Units 04:05 Calcium 8.3 L (8.4-10.2) mg/dL Albumin 3.8 (3.5-5.0) g/dL Pituitary panel 01/06/24 Range/Units 04:05 Sodium 131 L (137-145) mmol/L Potassium 4.2 (3.5-5.1) mmol/L Chloride 100 (98-107) mmol/L Carbon Dioxide 22 (22-30) mmol/L BUN 8 (7-17) mg/dL Creatinine 0.39 L (0.52-1.04) mg/dL Glucose 144 H (74-99) mg/dL Calcium 8.3 L (8.4-10.2) mg/dL Adrenal panel 01/06/24 Range/Units 04:05 Sodium 131 L (137-145) mmol/L Potassium 4.2 (3.5-5.1) mmol/L Chloride 100 (98-107) mmol/L Carbon Dioxide 22 (22-30) mmol/L BUN 8 (7-17) mg/dL Creatinine 0.39 L (0.52-1.04) mg/dL Glucose 144 H (74-99) mg/dL Calcium 8.3 L (8.4-10.2) mg/dL Total Bilirubin 1.0 (0.2-1.3) mg/dL AST 97 H (14-36) U/L ALT 73 H (4-34) U/L Alkaline Phosphatase 94 (38-126) U/L Total Protein 6.6 (6.3-8.2) g/dL Albumin 3.8 (3.5-5.0) g/dL
[2024-01-07] MEDS ORDERED: HYDROmorphone 0.5 MG/0.5 ML SYRINGE IVP PRN (07:37)
[2024-01-07 07:57] LABS: HGB 12.4 gm/dL (11.4-16.0); MCH 33.3 pg (25.0-35.0); MCHC 33.6 g/dL (31.0-37.0); MCV 99.1 fL (80.0-100.0); Mean Platelet Volume 8.4; Platelet Count 122 k/uL (150-450); RBC 3.73 m/uL (3.80-5.40); RDW 13.9 % (11.5-15.5); WBC 8.1 k/uL (3.8-10.6)
[2024-01-07 08:15] LABS: ALT 57 U/L (4-34); AST 58 U/L (14-36); African American GFR (CKD) >90 (>60 ml/min/1.73 sqM); Albumin 3.2 g/dL (3.5-5.0); Alkaline Phosphatase 67 U/L (38-126); Anion Gap 3 mmol/L; Blood Urea Nitrogen 6 mg/dL (7-17); Calcium 8.1 mg/dL (8.4-10.2); Carbon Dioxide 25 mmol/L (22-30); Chloride 105 mmol/L (98-107); Glucose 78 mg/dL (74-99); Magnesium 1.9 mg/dL (1.6-2.3); Non-African American GFR(CKD) >90 (>60 ml/min/1.73 sqM); Potassium 3.2 mmol/L (3.5-5.1); Sodium 133 mmol/L (137-145); Total Bilirubin 1.2 mg/dL (0.2-1.3); Total Protein 5.7 g/dL (6.3-8.2)
[2024-01-07] MEDS: LACTATED RINGERS 1,000 ML IV SCH (09:21)
[2024-01-07] MEDS: hydrOXYzine HCL 25 MG TAB PO PRN (11:37)
--- NOTE | 2024-01-07 13:08 | P.PN ---
Subjective Progress Note Date: 01/07/24 Hospital Course: Patient is a 63-year-old female with a past medical history of alcoholism reportedly drinking 2 pints of whiskey daily, hypertension, osteoarthritis, previous cervical spinal injury resulting in chronic pain and neuropathies, urinary incontinence, and nicotine dependence. Patient presented to the hospital via EMS for alcohol intoxication and concerns of burning/pain to buttocks. Upon arrival to the emergency department patient underwent kosta luation. Vital signs upon arrival show blood pressure 110/75, heart rate 80, respiratory rate 18, temp 98.6 F, and SpO2 of 99% on room air. EKG was completed showing normal sinus rhythm at 77 bpm. Labs completed and reviewed. CBC showing no significant abnormalities. Coagulation profile showing low PT of 9.8 otherwise normal findings. BMP showing metabolic acidosis with chloride of 108, bicarb 17, and anion gap elevated at 17. Blood glucose was 93. Lactic acid elevated at 4.2. Magnesium 1.8. Liver profile showing elevated AST of 61 and ALT of 54. Occult stool was negative. Serum alcohol level significantly elevated at 541. CT abdomen and pelvis with contrast was completed negative for acute intra-abdominal process and showing no acute process involving the rectum, did reveal possible gallbladder sludge or large stone. Patient was admitted under our services with consultation to general surgery. Physical exam: Patient seen and fully evaluated at bedside this morning. She currently remains free from any further episodes of abdominal pain or complaints this morning. She reports feeling very anxious and jittery from withdrawal along with mild nausea and pain/burning and itching to her buttocks from excoriated rash. Vital signs reviewed and stable. General: Nontoxic, no distress and appears stated age. Disheveled appearance. Derm: Skin warm and dry, normal coloration for ethnicity. pt with excoriated rash covering back with multiple abrasions/scratch rivera, along with rash to chest, and abdomen. She has significant erythema and excoriation to groin/peritoneal region. Old bruising in different stages of healing to bilateral upper and lower extremities. Head: Atraumatic, normocephalic and symmetric. Eyes: EOMs intact, no lid lag, and anicteric sclera Mouth: no lip lesions, mucus membranes moist Cardiovascular: regular rate and rhythm with normal S1S2, no murmur, positive posterior tibial pulses bilaterally, and cap refill < 2 seconds. Lungs: Respirations even, regular, and unlabored on room air. Lungs CTA bilaterally, no rhonchi, no rales, no wheezing, and no accessory muscle usage. Abdominal: soft, nontender to palpation, no guarding, no appreciable organomegaly Ext: ROM intact. No gross muscle atrophy, no edema, no contractures Neuro: Speech clear, face symmetrical and CN II-XII grossly intact with no noted focal neuro deficits Psych: Alert and oriented to person, place, time, and situation. Appropriate and pleasant affect. Assessment and Plan of Care: Alcohol intoxication in active alcoholic Cholecystitis High anion gap metabolic acidosis. Resolved with IV fluid hydration. Lactic acidosis, likely alcoholic ketoacidosis. Resolved with IV fluid hydration. Right upper quadrant abdominal pain Elevated liver enzymes, likely secondary to daily alcohol abuse however cannot rule out cholecystitis Pending alcohol withdraw -Blood alcohol upon arrival 541 -Order placed for monitoring of CIWA scores and patient to be medicated with Ativan 0.5 mg every 4 hours as needed for CIWA score of 4-5, Ativan 1 mg every 4 hours for CIWA score of 6-7, Ativan 2 mg every 3 hours CIWA score of 8-9, and Ativan 2 mg every 2 hours forr CIWA score of 10 or greater. -Patient was started on Librium 50 mg 3 times daily scheduled in addition to CIWA protocol with as needed benzodiazepines. -Continue daily medication regimen with thiamine 100 mg daily, Multivitamin daily, and Folate 1 mg daily. -Continue seizure, fall, aspiration, and elopement precautions. -Continued close monitoring of electrolytes and replace as needed. -Telemetry monitoring. -CT abdomen and pelvis revealed large gallstone with sludge, secondary to these findings and patient's reports of tenderness consult placed to general surgery to evaluate. Contact dermatitis with significant excoriation Perineal candidiasis -Likely secondary to irritation and unsanitary conditions, lying in her feces and urine for prolonged periods. -Patient given single dose of Solu-Medrol 125 mg IVP x 1 dose. -Order placed for nystatin ointment to be applied 3 times daily along with nystatin powder. -Continue with hydroxyzine 25 mg 3 times daily as needed for itching. -Consult placed to wound care for evaluation and further recommendations. Hypertension -Patient to continue daily medication regimen with hydralazine 25 mg twice daily. Data and imaging reviewed: -Morning labs reviewed. CBC showing thrombocytopenia with platelet count of 122 otherwise normal findings. BMP showing mild hyponatremia with sodium of 133, hypokalemia with potassium of 3.2 otherwise normal findings. Magnesium normal at 1.9. Liver enzymes show elevated AST of 58 and ALT of 57. -Blood pressure 149/86, heart rate 94, respiratory rate 18, temp 97.3 F, and SpO2 of 98% on room air. CODE STATUS: Full code DVT prophylaxis: Lovenox Anticipated discharge date: Clinical course to determine Anticipated discharge place: Home Patient was seen independently by Nurse Practitioner. This document was prepared using [employer] dictation software. Please allow for errors in tire bladder maker while rare they do occur. Cory Gama NP rendered care for this patient independently, reviewed the findings and plan as documented in the note above. I did not physically speak with or examine the patient on this date. Objective - Vital Signs Vital signs: Vital Signs Temp 98 F 01/07/24 04:00 Pulse 74 01/07/24 04:00 Resp 18 01/07/24 04:00 BP 132/90 01/07/24 04:00 Pulse Ox 94 L 01/07/24 04:00 FiO2 Intake & Output 01/06/24 01/07/24 01/07/24 18:59 06:59 18:59 Output Total 500 Balance -500 Weight 72.575 kg Output: Urine 500 Other: Voiding Method External Catheter External Catheter # Voids 1 - Labs CBC & Chem 7: 01/07/24 06:35 01/07/24 06:35
[2024-01-07] MEDS: POTASSIUM CHLORIDE ER 20 MEQ TAB.ER PO SCH (15:26)
--- NOTE | 2024-01-07 18:07 | P.PN ---
Subjective Progress Note Date: 01/07/24 Patient resting comfortably. No acute issues overnight. Patient has incidental finding of gallstones. Abdomen: No peritonitis. Plan: 1. Cholecystectomy for symptomatic gallstones. Objective - Vital Signs Vital signs: Vital Signs Temp 97.3 F L 01/07/24 08:00 Pulse 93 01/07/24 16:00 Resp 18 01/07/24 14:00 BP 129/76 01/07/24 16:00 Pulse Ox 95 01/07/24 16:00 FiO2 Intake & Output 01/06/24 01/07/24 01/07/24 18:59 06:59 18:59 Intake Total 716 Output Total 500 Balance -500 716 Weight 72.575 kg Intake: Oral 716 Output: Urine 500 Other: Voiding Method External Catheter External Catheter External Catheter # Voids 1 1 - Labs CBC & Chem 7: 01/07/24 06:35 01/07/24 06:35 Labs: Abnormal Lab Results - Last 24 Hours (Table) 01/07/24 01/07/24 Range/Units 06:35 06:35 RBC 3.73 L (3.80-5.40) m/uL Plt Count 122 L (150-450) k/uL Sodium 133 L (137-145) mmol/L Potassium 3.2 L (3.5-5.1) mmol/L BUN 6 L (7-17) mg/dL Creatinine 0.37 L (0.52-1.04) mg/dL Calcium 8.1 L (8.4-10.2) mg/dL AST 58 H (14-36) U/L ALT 57 H (4-34) U/L Total Protein 5.7 L (6.3-8.2) g/dL Albumin 3.2 L (3.5-5.0) g/dL
[2024-01-08] MEDS: chlordiazePOXIDE 25 MG CAP PO SCH (09:54)
[2024-01-08 11:18] LABS: ALT 39 U/L (4-34); AST 31 U/L (14-36); African American GFR (CKD) >90 (>60 ml/min/1.73 sqM); Albumin 3.5 g/dL (3.5-5.0); Albumin/Globulin Ratio 1.3; Alkaline Phosphatase 71 U/L (38-126); Anion Gap 6 mmol/L; Blood Urea Nitrogen 5 mg/dL (7-17); Calcium 8.7 mg/dL (8.4-10.2); Carbon Dioxide 22 mmol/L (22-30); Chloride 105 mmol/L (98-107); Globulin 2.8 g/dL; Glucose 76 mg/dL (74-99); Magnesium 1.8 mg/dL (1.6-2.3); Non-African American GFR(CKD) >90 (>60 ml/min/1.73 sqM); Potassium 3.9 mmol/L (3.5-5.1); Sodium 133 mmol/L (137-145); Total Bilirubin 0.9 mg/dL (0.2-1.3); Total Protein 6.3 g/dL (6.3-8.2)
[2024-01-08 11:32] LABS: HGB 13.5 gm/dL (11.4-16.0); MCH 33.2 pg (25.0-35.0); MCV 100.6 fL (80.0-100.0); Macrocytosis Slight; Mean Platelet Volume 8.1; Platelet Count 133 k/uL (150-450); RBC 4.08 m/uL (3.80-5.40); RDW 13.8 % (11.5-15.5); WBC 6.7 k/uL (3.8-10.6)
--- NOTE | 2024-01-08 13:17 | P.PN ---
Subjective Progress Note Date: 01/08/24 patient [place] stable. She has some minimal complaints of right quadrant pain. On exam vital signs appear stable. Abdomen is soft cholecystitis. Patient be scheduled for laparoscopically cholecystectomy in the a.m. Objective - Vital Signs Vital signs: Vital Signs Temp 98.3 F 01/08/24 07:12 Pulse 94 01/08/24 08:35 Resp 16 01/08/24 08:35 BP 126/74 01/08/24 07:12 Pulse Ox 98 01/08/24 07:12 FiO2 Intake & Output 01/07/24 01/08/24 01/08/24 18:59 06:59 18:59 Intake Total 834 300 Balance 834 300 Weight 42 kg Intake: Oral 834 300 Other: Voiding Method External Catheter External Catheter External Catheter # Voids 1 600 1 # Bowel Movements 1 - Labs CBC & Chem 7: 01/08/24 09:53 01/08/24 09:53 Labs: Abnormal Lab Results - Last 24 Hours (Table) 01/08/24 01/08/24 Range/Units 09:53 09:53 MCV 100.6 H (80.0-100.0) fL Plt Count 133 L (150-450) k/uL Sodium 133 L (137-145) mmol/L BUN 5 L (7-17) mg/dL Creatinine 0.48 L (0.52-1.04) mg/dL ALT 39 H (4-34) U/L
--- NOTE | 2024-01-08 14:37 | P.PN ---
Subjective Progress Note Date: 01/08/24 Hospital Course: Patient is a 63-year-old female with a past medical history of alcoholism reportedly drinking 2 pints of whiskey daily, hypertension, osteoarthritis, previous cervical spinal injury resulting in chronic pain and neuropathies, urinary incontinence, and nicotine dependence. Patient presented to the hospital via EMS for alcohol intoxication and concerns of burning/pain to buttocks. Upon arrival to the emergency department patient underwent kosta luation. Vital signs upon arrival show blood pressure 110/75, heart rate 80, respiratory rate 18, temp 98.6 F, and SpO2 of 99% on room air. EKG was completed showing normal sinus rhythm at 77 bpm. Labs completed and reviewed. CBC showing no significant abnormalities. Coagulation profile showing low PT of 9.8 otherwise normal findings. BMP showing metabolic acidosis with chloride of 108, bicarb 17, and anion gap elevated at 17. Blood glucose was 93. Lactic acid elevated at 4.2. Magnesium 1.8. Liver profile showing elevated AST of 61 and ALT of 54. Occult stool was negative. Serum alcohol level significantly elevated at 541. CT abdomen and pelvis with contrast was completed negative for acute intra-abdominal process and showing no acute process involving the rectum, did reveal possible gallbladder sludge or large stone. Patient was admitted under our services with consultation to general surgery. Physical exam: Patient seen and fully evaluated at bedside this morning. Patient reports feeling anxious this morning and reports that she has questions for her surgeon. Patient was informed that surgeon will be in to see her today. Vital signs reviewed and stable. General: Nontoxic, no distress and appears stated age. Disheveled appearance. Derm: Skin warm and dry, normal coloration for ethnicity. pt with excoriated rash covering back with multiple abrasions/scratch rivera, along with rash to chest, and abdomen. She has significant erythema and excoriation to groin/peritoneal region. Old bruising in different stages of healing to bilateral upper and lower extremities. Head: Atraumatic, normocephalic and symmetric. Eyes: EOMs intact, no lid lag, and anicteric sclera Mouth: no lip lesions, mucus membranes moist Cardiovascular: regular rate and rhythm with normal S1S2, no murmur, positive posterior tibial pulses bilaterally, and cap refill < 2 seconds. Lungs: Respirations even, regular, and unlabored on room air. Lungs CTA bilaterally, no rhonchi, no rales, no wheezing, and no accessory muscle usage. Abdominal: soft, nontender to palpation, no guarding, no appreciable organomegaly Ext: ROM intact. No gross muscle atrophy, no edema, no contractures Neuro: Speech clear, face symmetrical and CN II-XII grossly intact with no noted focal neuro deficits Psych: Alert and oriented to person, place, time, and situation. Appropriate and pleasant affect. Assessment and Plan of Care: Alcohol intoxication in active alcoholic High anion gap metabolic acidosis. Resolved with IV fluid hydration. Lactic acidosis, likely alcoholic ketoacidosis. Resolved with IV fluid hydration. Right upper quadrant abdominal pain Elevated liver enzymes, likely secondary to daily alcohol abuse however cannot rule out cholecystitis Pending alcohol withdraw -Blood alcohol upon arrival 541 -Order placed for monitoring of CIWA scores and patient to be medicated with Ativan 0.5 mg every 4 hours as needed for CIWA score of 4-5, Ativan 1 mg every 4 hours for CIWA score of 6-7, Ativan 2 mg every 3 hours CIWA score of 8-9, and Ativan 2 mg every 2 hours forr CIWA score of 10 or greater. Patient has had 8- 1/2 mg of Ativan over the past 24 hours. -Will start to decrease scheduled Librium down to 25 mg 3 times daily in addition to continuation of CIWA protocol with as needed benzodiazepines. -Continue daily medication regimen with thiamine 100 mg daily, Multivitamin daily, and Folate 1 mg daily. -Continue seizure, fall, aspiration, and elopement precautions. -Continued close monitoring of electrolytes and replace as needed. -Telemetry monitoring. Cholecystitis, symptomatic gallstones -CT abdomen and pelvis revealed large gallstone with sludge, secondary to these findings and patient's reports of tenderness -General surgery following, planning to take patient for laparoscopic cholecystectomy tomorrow. Contact dermatitis with significant excoriation Perineal candidiasis -Likely secondary to irritation and unsanitary conditions, lying in her feces and urine for prolonged periods. -Patient given single dose of Solu-Medrol 125 mg IVP x 1 dose. -Order placed for nystatin ointment to be applied 3 times daily along with nystatin powder. -Continue with hydroxyzine 25 mg 3 times daily as needed for itching. -Consult placed to wound care for evaluation and further recommendations. Hypertension -Patient to continue daily medication regimen with hydralazine 25 mg twice daily. Data and imaging reviewed: -Morning labs reviewed. CBC showing thrombocytopenia with platelet count of 133 and macrocytosis with MCV of 100.6. BMP showing mild hyponatremia with sodium of 133. Magnesium normal at 1.8. Liver enzymes show elevated ALT of 39. -Blood pressure 126/74, heart rate 94, respiratory rate 16, temp 98.3 F, and SpO2 of 98% on room air. CODE STATUS: Full code DVT prophylaxis: Lovenox Anticipated discharge date: Clinical course to determine Anticipated discharge place: Home Patient was seen independently by Nurse Practitioner. This document was prepared using [employer] dictation software. Please allow for errors in machine riveter while rare they do occur. Cory Gama NP rendered care for this patient independently, reviewed the findings and plan as documented in the note above. I did not physically speak with or examine the patient on this date. Objective - Vital Signs Vital signs: Vital Signs Temp 98.3 F 01/08/24 07:12 Pulse 94 01/08/24 08:35 Resp 16 01/08/24 08:35 BP 126/74 01/08/24 07:12 Pulse Ox 98 01/08/24 07:12 FiO2 Intake & Output 01/07/24 01/08/24 01/08/24 18:59 06:59 18:59 Intake Total 834 300 Balance 834 300 Weight 42 kg Intake: Oral 834 300 Other: Voiding Method External Catheter External Catheter External Catheter # Voids 1 600 - Labs CBC & Chem 7: 01/08/24 09:53 01/08/24 09:53
[2024-01-09] MEDS ORDERED: ONDANSETRON 4 MG/2 ML VIAL ONE (09:41)
[2024-01-09] MEDS: ONDANSETRON 4 MG/2 ML VIAL IVP ONE (09:45)
[2024-01-09] MEDS: DEXAMETHASONE SOD PHOSPHATE 4 MG/ML 1 ML VIAL IVP ONE (09:45)
[2024-01-09] MEDS ORDERED: LIDOCAINE 1% INJ 10MG/ML (20 ML MDV) ONE (09:56)
[2024-01-09] MEDS ORDERED: fentaNYL (PF) 50 MCG/ML 2 ML AMP ONE (09:56)
[2024-01-09] MEDS ORDERED: MIDAZOLAM 2 MG/2 ML VIAL ONE (09:56)
[2024-01-09] MEDS ORDERED: PHENYLEPHRINE 10 MG/ML VIAL ONE (09:56)
[2024-01-09] MEDS ORDERED: KETOROLAC 15 MG/ML 1 ML VIAL ONE (09:56)
[2024-01-09] MEDS ORDERED: PROPOFOL 10 MG/ML 20 ML VIAL IV ONE (09:56)
[2024-01-09] MEDS ORDERED: HYDROmorphone (PF) 1 MG/ML ONE (09:56)
[2024-01-09] MEDS ORDERED: SUCCINYLCHOLINE CHLORIDE 200 MG/10 ML VIAL IV ONE (09:56)
[2024-01-09] MEDS: SODIUM CHLORIDE 0.9% 50 ML with ceFAZolin 2,000 MG IV ONE (09:58)
[2024-01-09] MEDS: LIDOCAINE 1%-EPI 1:100,000 20 ML VIAL SQ ONE (10:22)
[2024-01-09 10:36] LABS: HCT 38.2 % (37.2-46.3); HGB 12.6 g/dL (12.0-15.0); MCH 33.3 pg (27.0-32.0); MCV 101.1 FL (80.0-97.0); Mean Platelet Volume 9.8 FL (9.5-12.2); NRBC Per 100 WBC 0 X 10*3/uL (0.00-0.01); Platelet Count 100 X 10*3/uL (140-440); RBC 3.78 X 10*6/uL (4.10-5.20); RDW 14.1 % (11.5-14.5); WBC 7.21 X 10*3/uL (4.50-10.00)
--- NOTE | 2024-01-09 10:43 | P.OP ---
Date of Procedure: 01/09/24 Preoperative Diagnosis: cholecystitis Postoperative Diagnosis: cholecystitis Procedure(s) Performed: laparoscopic cholecystectomy Anesthesia: CHARISSE Surgeon: Hong Matos Estimated Blood Loss (ml): 5 Pathology: other (gallbladder) Condition: stable Disposition: PACU Description of Procedure: The patient was placed on the operating table. The patient received a general endotracheal tube anesthesia. The patients abdomen was prepped and draped in the usual sterile fashion. Through an infraumbilical stab incision, the fascia of the anterior abdominal wall was grasped with a pair of Kochers and then the Veress needle was placed in the peritoneal cavity. Position of the Veress needle was confirmed with positive drop test. The abdomen was then insufflated. After adequate insufflation, the 10 mm trocar was placed in the peritoneal cavity. Following this the laparoscope was placed in the peritoneal cavity. The patient was placed in the head-up, right side up position and then a 5 mm trocar was placed in the right lateral and right subcostal position under direct visualization. A 8 mm trocar was placed in the epigastric position. The gallbladder was grasped in the fundus and infundibulum. Traction on the gallbladder was placed in the lateral and the cephalad positions. The triangle of Calot was visualized.. The cystic duct was bluntly dissected until the union of the cystic duct and common bile duct was seen. A critical view of safety was achieved. The cystic duct was then divided and sealed with the Harmonic scissors. A PDS Endoloop was then placed throughout the cystic duct stump. The cystic artery divided and sealed with the Harmonic scissors. The gallbladder was then removed from the liver bed using Harmonic scissors. The gallbladder was then extracted through the epigastric port site. Operative field was checked for any bleeding spots and Harmonic scissors was used to coagulate the liver bed. The abdomen was irrigated. The trocars were removed. The skin was closed using interrupted 3-0 Vicryl suture. Dermabond dressing were applied. The patient tolerated the procedure well.
[2024-01-09] MEDS: LACTATED RINGERS 1,000 ML IV ONE (10:54)
[2024-01-09 11:06] LABS: Magnesium 1.9 mg/dL (1.5-2.4)
[2024-01-09 11:21] LABS: ALT 34 U/L (8-44); AST 36 U/L (13-35); Albumin 3.7 g/dL (3.8-4.9); Albumin/Globulin Ratio 1.61 Ratio (1.60-3.17); Alkaline Phosphatase 55 U/L (41-126); Blood Urea Nitrogen 8.7 mg/dL (9.0-27.0); Calcium 8.7 mg/dL (8.7-10.3); Carbon Dioxide 19.1 mmol/L (21.6-31.8); Chloride 101 mmol/L (96-109); Globulin 2.3 g/dL (1.6-3.3); Glucose 90 mg/dL (70-110); Potassium 4.4 mmol/L (3.5-5.5); Sodium 133 mmol/L (135-145); Total Bilirubin 0.4 mg/dL (0.3-1.2)
--- NOTE | 2024-01-09 14:25 | P.PN ---
Subjective Progress Note Date: 01/09/24 Hospital Course: Patient is a 63-year-old female with a past medical history of alcoholism reportedly drinking 2 pints of whiskey daily, hypertension, osteoarthritis, previous cervical spinal injury resulting in chronic pain and neuropathies, urinary incontinence, and nicotine dependence. Patient presented to the hospital via EMS for alcohol intoxication and concerns of burning/pain to buttocks. Upon arrival to the emergency department patient underwent kosta luation. Vital signs upon arrival show blood pressure 110/75, heart rate 80, respiratory rate 18, temp 98.6 F, and SpO2 of 99% on room air. EKG was completed showing normal sinus rhythm at 77 bpm. Labs completed and reviewed. CBC showing no significant abnormalities. Coagulation profile showing low PT of 9.8 otherwise normal findings. BMP showing metabolic acidosis with chloride of 108, bicarb 17, and anion gap elevated at 17. Blood glucose was 93. Lactic acid elevated at 4.2. Magnesium 1.8. Liver profile showing elevated AST of 61 and ALT of 54. Occult stool was negative. Serum alcohol level significantly elevated at 541. CT abdomen and pelvis with contrast was completed negative for acute intra-abdominal process and showing no acute process involving the rectum, did reveal possible gallbladder sludge or large stone. Patient was admitted under our services with consultation to general surgery. Patient has been on CIWA protocol with symptom triggered medication management with benzodiazepines. He was evaluated by general surgery, they are taking patient for laparoscopic cholecystectomy later today. Physical exam: Patient seen and fully evaluated at bedside this morning. Patient reports feeling anxious this morning and reports that she has questions for her surgeon. Patient was informed that surgeon will be in to see her today. Vital signs reviewed and stable. General: Nontoxic, no distress and appears stated age. Disheveled appearance. Derm: Skin warm and dry, normal coloration for ethnicity. pt with excoriated rash covering back with multiple abrasions/scratch rivera, along with rash to chest, and abdomen. She has significant erythema and excoriation to groin/peritoneal region. Old bruising in different stages of healing to bilateral upper and lower extremities. Head: Atraumatic, normocephalic and symmetric. Eyes: EOMs intact, no lid lag, and anicteric sclera Mouth: no lip lesions, mucus membranes moist Cardiovascular: regular rate and rhythm with normal S1S2, no murmur, positive posterior tibial pulses bilaterally, and cap refill < 2 seconds. Lungs: Respirations even, regular, and unlabored on room air. Lungs CTA bilaterally, no rhonchi, no rales, no wheezing, and no accessory muscle usage. Abdominal: soft, nontender to palpation, no guarding, no appreciable organomegaly Ext: ROM intact. No gross muscle atrophy, no edema, no contractures Neuro: Speech clear, face symmetrical and CN II-XII grossly intact with no noted focal neuro deficits Psych: Alert and oriented to person, place, time, and situation. Appropriate and pleasant affect. Assessment and Plan of Care: Alcohol intoxication in active alcoholic High anion gap metabolic acidosis. Resolved with IV fluid hydration. Lactic acidosis, likely alcoholic ketoacidosis. Resolved with IV fluid hydration. Right upper quadrant abdominal pain Pending alcohol withdraw -Blood alcohol upon arrival 541 -Order placed for monitoring of CIWA scores and patient to be medicated with Ativan 0.5 mg every 4 hours as needed for CIWA score of 4-5, Ativan 1 mg every 4 hours for CIWA score of 6-7, Ativan 2 mg every 3 hours CIWA score of 8-9, and Ativan 2 mg every 2 hours forr CIWA score of 10 or greater. Patient has had 4 mg of Ativan over the past 24 hours. -Will start to decrease scheduled Librium down to 25 mg 2 times daily in addition to continuation of CIWA protocol with as needed benzodiazepines. -Continue daily medication regimen with thiamine 100 mg daily, Multivitamin daily, and Folate 1 mg daily. -Continue seizure, fall, aspiration, and elopement precautions. -Continued close monitoring of electrolytes and replace as needed. -Telemetry monitoring. Cholecystitis with transaminits, symptomatic gallstones -CT abdomen and pelvis revealed large gallstone with sludge, secondary to these findings and patient's reports of tenderness -General surgery following, taking patient for laparoscopic cholecystectomy later today.. Contact dermatitis with significant excoriation Groin Candidiasis -Likely secondary to irritation and unsanitary conditions, lying in her feces and urine for prolonged periods. -Patient given single dose of Solu-Medrol 125 mg IVP x 1 dose. -Order placed for nystatin ointment to be applied 3 times daily along with nystatin powder. -Continue with hydroxyzine 25 mg 3 times daily as needed for itching. -Consult placed to wound care for evaluation and further recommendations. Hypertension -Patient to continue daily medication regimen with hydralazine 25 mg twice daily. Data and imaging reviewed: -Morning labs reviewed. CBC showing thrombocytopenia with platelet count of 100 and macrocytosis with MCV of 101.1. BMP showing mild hyponatremia with sodium of 133. Magnesium normal at 1.9. Liver enzymes show elevated AST of 36 otherwise normal findings. -Blood pressure 107/67, heart rate 78, respiratory rate 16, temp 98.4 F, and SpO2 of 97% on room air. CODE STATUS: Full code DVT prophylaxis: Lovenox Anticipated discharge date: Clinical course to determine Anticipated discharge place: Home Patient was seen independently by Nurse Practitioner. This document was prepared using [employer] dictation software. Please allow for errors in hoseman while rare they do occur. Cory Gama NP rendered care for this patient independently, reviewed the findings and plan as documented in the note above. I did not physically speak with or examine the patient on this date. Objective - Vital Signs Vital signs: Vital Signs Temp 98.4 F 01/09/24 07:01 Pulse 78 01/09/24 07:01 Resp 16 01/09/24 07:01 BP 107/67 01/09/24 07:01 Pulse Ox 97 01/09/24 07:01 FiO2 Intake & Output 01/08/24 01/09/24 01/09/24 18:59 06:59 18:59 Intake Total 118 Balance 118 Weight 62 kg Intake: Oral 118 Other: Voiding Method External Catheter External Catheter # Voids 1 1 1 # Bowel Movements 1 1 - Labs CBC & Chem 7: 01/09/24 06:28 01/09/24 06:28 Labs: Abnormal Lab Results - Last 24 Hours (Table) 01/08/24 01/08/24 Range/Units 09:53 09:53 MCV 100.6 H (80.0-100.0) fL Plt Count 133 L (150-450) k/uL Sodium 133 L (137-145) mmol/L BUN 5 L (7-17) mg/dL Creatinine 0.48 L (0.52-1.04) mg/dL ALT 39 H (4-34) U/L
--- NOTE | 2024-01-09 14:54 | P.CN ---
Psychiatric Consult - . Consult date: 01/09/24 Consult:: 01/09/24 14:18 IDENTIFYING DATA: This patient is a 63-year-old female, currently is lives with her in a house, she has no kids, she is unemployed REASON FOR REFERRAL: Psychiatry was consulted for family reporting self- destructive behaviors and lack of personal care. HISTORY OF PRESENT ILLNESS: The patient presented to the hospital on 01/04 for rectal pain) and multiple comorbidities. Patient also apparently reported a daily history of alcohol use and a history of mild withdrawals in the past. Patient apparently called EMS on herself to bring her to the hospital, she was a fairly poor historian. Patient apparently was covered in feces and urine at home according to ambulance report, LFTs are mildly elevated, blood alcohol level was 541, sodium was low. Patient had a surgery consultation and was taken in for a cholecystectomy which was done today. Patient was seen at the bedside today, was somewhat drowsy, states that she knows her correct name, she knew her age, knew the correct date and knew her location. She was fairly vague about her complaints as to why she came to the hospital, she appeared to be fairly superficial and evasive about her drinking history. She claims that her memory is "vague" and does not remember a lot of what had occurred. She states that she had a "horrible rash", admits to anxiety during the day and claims that that is why she drinks. Denies any current cravings and is not interested in cravings medications for alcohol. States that she is not having any depression at this time, denies any problems with sleep last night however does state that she does have on and off sleep problems, denies any problems with appetite. At this time patient denies any suicidal or homical ideations, intent or plan. Patient denies any auditory, visual hallucinations and denies any paranoia or delusions. Patients admits to using cigarettes daily, alcohol frequently, drinks about 1 pint of whiskey per day, denies any other recreational drug use. PAST PSYCHIATRIC HISTORY: Patient has a a history of alcohol use disorder and anxiety. Patient denies being on any psychiatric medications. Patient denies any previous psychiatric hospitalizations. Patient denies any psychiatric outpatient follow-up. Patient denies any history of suicide attempts in the past. 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 History of Any Multi-Drug Resistant Organisms: None Reported Past Surgical History: AICD, Back Surgery Additional Past Surgical History / Comment(s): Cervical surgery at [facility] d/t injury, colonoscopies/benign polypectomy Past Anesthesia/Blood Transfusion Reactions: No Reported Reaction, Motion Sickness Additional Past Anesthesia/Blood Transfusion Reaction / Comment(s): PT has clausterphobia. Past Psychological History: Anxiety Smoking Status: Current some day smoker Past Alcohol Use History: Abuse, Daily, Heavy Past Drug Use History: None Reported ALLERGIES: as per EMR. CHEMICAL DEPENDENCY HISTORY: as per HPI. 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 States that she was charged in the past with 2 DUIs and went to [facility]. MENTAL STATUS EXAM: General Appearance: Patient appears to be somewhat drowsy, stated age is, fairly superficial at times and evasive. Mildly disheveled appearance, patient appears to have fair hygiene and grooming wearing hospital gown with poor eye contact. Behavior: Patient is calmly lying in bed without any agitated behavior. Fairly sleepy Speech: Patient's speech is fluent and nonpressured. Raphine and soft tone Mood/Affect: Patient reports their mood is "mostly anxious", affect is congruent and constricted Suicidality/Homicidality: Patient denies having any suicidal or homicidal ideation intent or plan. Perceptions: Patient denies any visual hallucinations and denies any auditory hallucinations Though content/process: There is no evidence of any delusional thought content and thought process is linear and goal-directed. Somewhat evasive and vague Memory and concentration: AOX3, grossly intact for the purposes of this session. Can spell "WORLD" backwards Judgment and insight: Poor IMPRESSIONS: Alcohol use disorder, severe dependence, currently in withdrawal Anxiety disorder unspecified Nicotine dependence PLAN: -At this time patient DOES NOT meet criteria for inpatient psychiatric admission. Patient is likely not caring for herself secondary to her severe alcohol dependence and abuse. -Would recommend the following medication changes/additions: Continue to titrate down on the Librium as tolerated for alcohol withdrawal. CIWA protocol with as needed Ativan for alcohol withdrawal symptoms. Patient is not interested in alcohol cravings medications at this time. Patient was agreeable to try Remeron 15 mg nightly for sleep/anxiety/appetite, Zoloft started 25 mg daily and increase to 50 mg daily starting tomorrow for mood/anxiety. -CIWA protocol with PRN Ativan for alcohol withdrawal. Continue to monitor vital signs. -ball worker to provide patient with outpatient mental health/psychiatry resources for appropriate follow up upon discharge -Parking Ramp Attendant spoke with patient about substance abuse and the harmful effects on medical and mental health, patient verbally understood and agreed. -ball worker to provide patient substance use treatment resources including AA/NA meetings in the community. -ball worker to provide patient with access line number to call for inpatient substance rehab -Communicated plan to patient's nurse -Psychiatry will sign off at this time -Please contact with any questions. 01/09/24 14:48
[2024-01-09] MEDS: SERTRALINE 25 MG TAB PO ONE (15:25)
[2024-01-09] MEDS: MIRTAZAPINE 15 MG TAB PO SCH (20:04)
[2024-01-09] MEDS ORDERED: chlordiazePOXIDE 25 MG CAP PO SCH (21:00)
[2024-01-10 03:02] VITALS: PULSE 82
[2024-01-10] MEDS: SERTRALINE 50 MG TAB PO SCH (08:19)
[2024-01-10] MEDS: HYDROmorphone 1 MG/ML 1 ML SYRINGE IVP PRN (08:34)
[2024-01-10 08:46] VITALS: BP 105/67; RESP 15; TEMP 98.1
--- NOTE | 2024-01-10 10:29 | P.DS ---
Providers Date of admission: 01/05/24 11:28 Expected date of discharge: 01/10/24 Attending physician: Michael Johnson MD Consults: 01/05/24 12:15 Consult Physician Routine Consulting Provider: Hong Matos Consult Reason/Comments: RUQ/Epigastric tenderness, CT showing large gallstone w/ sludge Do you want consulting provider notified?: Yes 01/08/24 15:04 Consult Physician Routine Consulting Provider: Danny Rodriguez Consult Reason/Comments: fam reports pt w/ self destructive behaviors & total lack of personal care Do you want consulting provider notified?: Yes Primary care physician: Stated None Hospital Course: Discharge Diagnosis: Alcohol abuse and withdrawal. Alcohol intoxication upon arrival. High anion gap metabolic acidosis. Resolved with IV fluid hydration. Lactic acidosis, likely alcoholic ketoacidosis. Resolved with IV fluid hydration. Cholecystitis with transaminitis, symptomatic gallstones. General surgery evaluated and took patient for laparoscopic cholecystectomy on 01/09/2024. Contact dermatitis with significant excoriation. Groin Candidiasis. Continue Nystatin ointment to be applied 3 times daily along with nystatin powder. Hypertension. Patient to continue daily medication regimen with hydralazine 25 mg twice daily. Hospital Course: Patient is a 63-year-old female with a past medical history of alcoholism reportedly drinking 2 pints of whiskey daily, hypertension, osteoarthritis, previous cervical spinal injury resulting in chronic pain and neuropathies, urinary incontinence, and nicotine dependence. Patient presented to the hospital via EMS for alcohol intoxication and concerns of burning/pain to buttocks. Upon arrival to the emergency department patient underwent evaluation. Vital signs upon arrival show blood pressure 110/75, heart rate 80, respiratory rate 18, temp 98.6 F, and SpO2 of 99% on room air. EKG was completed showing normal sinus rhythm at 77 bpm. Labs completed and reviewed. CBC showing no significant abnormalities. Coagulation profile showing low PT of 9.8 otherwise normal findings. BMP showing metabolic acidosis with chloride of 108, bicarb 17, and anion gap elevated at 17. Blood glucose was 93. Lactic acid elevated at 4.2. Magnesium 1.8. Liver profile showing elevated AST of 61 and ALT of 54. Occult stool was negative. Serum alcohol level significantly elevated at 541. CT abdomen and pelvis with contrast was completed negative for acute intra-abdominal process and showing no acute process involving the rectum, did reveal possible gallbladder sludge or large stone. Patient was admitted under our services with consultation to general surgery. Patient has been on CIWA protocol with symptom triggered medication management with benzodiazepines. General surgery evaluated and took patient for laparoscopic cholecystectomy on 01/09/2024. Patient tolerated procedure well and reports only mild pain at this time. She is tolerating oral intake and denies any postoperative nausea or vomiting. Patient has only had 1 mg of Ativan over the past 24 hours. Medically she is stable for discharge at this time. Patient strongly encouraged to avoid any and all alcohol use Physical exam: Vital signs reviewed and stable. General: Nontoxic, no distress and appears stated age. Disheveled appearance. Derm: Skin warm and dry, normal coloration for ethnicity. pt with excoriated rash covering back with multiple abrasions/scratch rivera, along with rash to chest, and abdomen. She has significant erythema and excoriation to groin/peritoneal region. Old bruising in different stages of healing to bilateral upper and lower extremities. Head: Atraumatic, normocephalic and symmetric. Eyes: EOMs intact, no lid lag, and anicteric sclera Mouth: no lip lesions, mucus membranes moist Cardiovascular: regular rate and rhythm with normal S1S2, no murmur, positive posterior tibial pulses bilaterally, and cap refill < 2 seconds. Lungs: Respirations even, regular, and unlabored on room air. Lungs CTA bilaterally, no rhonchi, no rales, no wheezing, and no accessory muscle usage. Abdominal: soft, nontender to palpation, no guarding, no appreciable organomegaly Ext: ROM intact. No gross muscle atrophy, no edema, no contractures Neuro: Speech clear, face symmetrical and CN II-XII grossly intact with no noted focal neuro deficits Psych: Alert and oriented to person, place, time, and situation. Appropriate and pleasant affect. A total of 35 minutes of time were spent preparing this complex discharge summary. Pt was discharged on 01/10/2024 at 8:10 AM. Patient was seen independently by Nurse Practitioner. This document was prepared using [employer] dictation software. Please allow for errors in credit reporter while rare they do occur. Cory Gama NP rendered care for this patient independently, reviewed the findings and plan as documented in the note above. I did not physically speak with or examine the patient on this date. Patient Condition at Discharge: Stable Plan - Discharge Summary Discharge Rx Participant: Yes New Discharge Prescriptions: New Nystatin 100,000 Unit/gm Oint [Mycostatin Oint] 1 applic TOPICAL TID 30 Days #1 cream Mirtazapine [Remeron] 15 mg PO HS 30 Days #30 tab Sertraline [Zoloft] 50 mg PO DAILY 30 Days #30 tab HYDROcodone/APAP 5-325MG [[place] 5-325] 1 tab PO Q6HR PRN 3 Days #12 tab PRN Reason: Pain Continue Folic Acid-Vit B Complex-Vit C [Nephrocaps] 1 cap PO DAILY hydrALAZINE HCL [Apresoline] 25 mg PO BID 30 Days #60 tab hydrOXYzine HCL [Atarax] 25 mg PO TID PRN #15 tab PRN Reason: Itching predniSONE See Taper PO DIRECTED Multivitamins, Thera [Multivitamin (formulary)] 1 tab PO DAILY Magnesium Oxide [Mag-Ox] 400 mg PO DAILY #15 tab Nystatin 100,000 Unit/gm Powd [Mycostatin Powder] 1 applic TOPICAL TID #1 each Pantoprazole [Protonix] 40 mg PO AC-BRKFST #30 tab Thiamine [Vitamin B-1] 100 mg PO DAILY #30 tab Cholecalciferol (Vitamin D3) [Vitamin D3 (50 Mcg = 2000 Iu)] 50 mcg PO DAILY Discharge Medication List Multivitamins, Thera [Multivitamin (formulary)] 1 tab PO DAILY 11/27/23 [History] Magnesium Oxide [Mag-Ox] 400 mg PO DAILY #15 tab 11/29/23 [Rx] Nystatin 100,000 Unit/gm Powd [Mycostatin Powder] 1 applic TOPICAL TID #1 each 11/29/23 [Rx] Pantoprazole [Protonix] 40 mg PO AC-BRKFST #30 tab 11/29/23 [Rx] Thiamine [Vitamin B-1] 100 mg PO DAILY #30 tab 11/29/23 [Rx] Folic Acid-Vit B Complex-Vit C [Nephrocaps] 1 cap PO DAILY 12/09/23 [History] Cholecalciferol (Vitamin D3) [Vitamin D3 (50 Mcg = 2000 Iu)] 50 mcg PO DAILY 12/22/23 [History] hydrALAZINE HCL [Apresoline] 25 mg PO BID 30 Days #60 tab 04/16/24 [Rx] hydrOXYzine HCL [Atarax] 25 mg PO TID PRN #15 tab 01/04/24 [Rx] predniSONE See Taper PO DIRECTED 01/05/24 [History] HYDROcodone/APAP 5-325MG [[place] 5-325] 1 tab PO Q6HR PRN 3 Days #12 tab 01/10/24 [Rx] Mirtazapine [Remeron] 15 mg PO HS 30 Days #30 tab 01/10/24 [Rx] Nystatin 100,000 Unit/gm Oint [Mycostatin Oint] 1 applic TOPICAL TID 30 Days #1 cream 01/10/24 [Rx] Sertraline [Zoloft] 50 mg PO DAILY 30 Days #30 tab 01/10/24 [Rx] Follow up Appointment(s)/Referral(s): Suyapa Spears III, MD [STAFF PHYSICIAN] - 1 Week (recommend establishing care with PCP) Hong Matos MD [STAFF PHYSICIAN] - 01/17/24 3:00 pm Patient Instructions/Handouts: *Surgery [facility] - Laparoscopic Cholecystectomy Discharge Instructions, Alcohol Intoxication (DC), Abuse of Alcohol (DC) Activity/Diet/Wound Care/Special Instructions: Activity: Limited until seen by As tolerated. Take breaks as needed. Diet: as tolerated Heart healthy and carb consistent diet. Avoid salts, or foods with hidden salts such as canned or boxed foods and frozen dinners. Extra salt makes your heart work harder and traps the fluid in your body for longer. Special Instructions: Take all of your medications as directed and remember to keep all of your doc tor's appointments and follow-up as needed. Thank you for allowing us to participate in your care, it was truly a pleasure having you for our patient!!! Discharge/Stand Alone Forms: AA Meetings [facility], Community Resources, Help In The Home, Inp Substance Abuse Facilities Discharge Disposition: HOME WITH HOME HEALTH SERVICES
--- NOTE | 2024-01-10 10:44 | P.PN ---
Subjective Progress Note Date: 01/10/24 CHIEF COMPLAINT: Cholecystitis HISTORY OF PRESENT ILLNESS: Patient is postop day #1 status post laparoscopic cholecystectomy. Her pain is controlled. She is tolerating diet. Afebrile. PHYSICAL EXAM: VITAL SIGNS: Reviewed. GENERAL: Well-developed in no acute distress. ABDOMEN: Soft. Nondistended. NEUROLOGIC: Alert and oriented. Cranial nerves II through XII grossly intact. ASSESSMENT: 1. Cholecystitis status post laparoscopic cholecystectomy 2. Alcohol use disorder PLAN: -Patient can be discharged from surgical standpoint -Recommended alcohol cessation Physician Cl[employer]et [employer] note has been reviewed by physician. Signing provider agrees with the documented findings, assessment, and plan of care. Objective - Vital Signs Vital signs: Vital Signs Temp 98.1 F 01/10/24 07:18 Pulse 82 01/10/24 08:45 Resp 15 01/10/24 08:45 BP 105/67 01/10/24 07:18 Pulse Ox 96 01/10/24 07:18 FiO2 Intake & Output 01/09/24 01/10/24 01/10/24 18:59 06:59 18:59 Intake Total 1050 Balance 1050 Intake: IV 1050 Other: Voiding Method Diaper Diaper Diaper External Catheter # Voids 2 3 - Labs CBC & Chem 7: 01/09/24 06:28 01/09/24 06:28 Labs: Abnormal Lab Results - Last 24 Hours (Table) 01/09/24 Range/Units 06:28 Sodium 133 L (135-145) mmol/L Carbon Dioxide 19.1 L (21.6-31.8) mmol/L Anion Gap 12.90 H (4.00-12.00) mmol/L BUN 8.7 L (9.0-27.0) mg/dL AST 36 H (13-35) U/L Total Protein 6.0 L (6.2-8.2) g/dL Albumin 3.7 L (3.8-4.9) g/dL
[2024-01-10] MEDS ORDERED: HYDROPHILIC CREAM 180 GM TUBE TOPICAL SCH (11:45)
--- NOTE | 2024-01-10 11:50 | P.CONS ---
History of Present Illness - Reason for Consult Consult date: 01/10/24 wound care - History of Present Illness This is a 63-year-old patient being seen on [address] for moisture dermatitis to the bilateral groin and sacral area. Patient states that it has been there for few weeks now. The groin is improving. Patient does not have any open ulcerations at this time. The skin does show excoriation. Patient's past medical history is significant for hypertension, current everyday smoker and EtOH abuse. Review Of Systems: Constitutional: No fever, no chills, no night sweats. No weight change. No weakness, fatigue or lethargy. No daytime sleepiness. Integumentary:reports wounds, no lesions. No rash or pruritus. No unusual bruising. No change in hair or nails. Physical exam: General Appearance: Alert, cooperative, no distress, appears stated age. Skin: See HPI all other Skin color, texture, tugor normal, no rashes or lesions. Neurologic: Alert oriented x3 Assessment: 1. Stage I pressure ulcer right buttocks 2. Stage I pressure ulcer left buttocks 3. Moisture dermatitis Plan: 1. Apply Triad and nystatin cream to the site. Thank you for the consultation any questions please contact the wound care center DNP note has been reviewed and discussed with Dr. Marinelli and the impression and plan of care has been directed as dictated. 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 History of Any Multi-Drug Resistant Organisms: None Reported Past Surgical History: AICD, Back Surgery Additional Past Surgical History / Comment(s): Cervical surgery at [facility] d/t injury, colonoscopies/benign polypectomy Past Anesthesia/Blood Transfusion Reactions: No Reported Reaction, Motion Sickness Additional Past Anesthesia/Blood Transfusion Reaction / Comm: PT has clausterphobia. Past Psychological History: Anxiety Smoking Status: Current some day smoker Past Alcohol Use History: Abuse, Daily, Heavy Past Drug Use History: None Reported - Past Family History Mother Family Medical History: Cancer Additional Family Medical History / Comment(s): Mother of melanoma Father Family Medical History: No Reported History Additional Family Medical History / Comment(s): Father is healthy Medications and Allergies Home Medications Medication Instructions Recorded Confirmed Type Multivitamins, Thera [Multivitamin 1 tab PO DAILY 11/27/23 01/05/24 History (formulary)] Magnesium Oxide [Mag-Ox] 400 mg PO DAILY #15 tab 11/29/23 01/05/24 Rx Nystatin 100,000 Unit/gm Powd 1 applic TOPICAL TID #1 each 11/29/23 01/05/24 Rx [Mycostatin Powder] Pantoprazole [Protonix] 40 mg PO AC-BRKFST #30 tab 11/29/23 01/05/24 Rx Thiamine [Vitamin B-1] 100 mg PO DAILY #30 tab 11/29/23 01/05/24 Rx Folic Acid-Vit B Complex-Vit C 1 cap PO DAILY 12/09/23 01/05/24 History [Nephrocaps] Cholecalciferol (Vitamin D3) 50 mcg PO DAILY 12/22/23 01/05/24 History [Vitamin D3 (50 Mcg = 2000 Iu)] hydrALAZINE HCL [Apresoline] 25 mg PO BID 30 Days #60 tab 12/27/23 01/05/24 Rx hydrOXYzine HCL [Atarax] 25 mg PO TID PRN #15 tab 01/04/24 01/05/24 Rx predniSONE See Taper PO DIRECTED 01/05/24 01/05/24 History HYDROcodone/APAP 5-325MG [[place] 1 tab PO Q6HR PRN 3 Days #12 tab 01/10/24 Rx 5-325] Mirtazapine [Remeron] 15 mg PO HS 30 Days #30 tab 01/10/24 Rx Nystatin 100,000 Unit/gm Oint 1 applic TOPICAL TID 30 Days #1 01/10/24 Rx [Mycostatin Oint] cream Sertraline [Zoloft] 50 mg PO DAILY 30 Days #30 tab 01/10/24 Rx Allergies Allergy/AdvReac Type Severity Reaction Status Date / Time shellfish derived [Shellfish] Allergy Severe Dyspnea Verified 01/09/24 09:45 iodine Allergy Rash/Hives Verified 01/09/24 09:45 Sulfa (Sulfonamide Allergy Rash/Hives Verified 01/09/24 09:45 Antibiotics) Physical Exam Vitals: Vital Signs Temp Pulse Resp BP Pulse Ox 01/10/24 08:45 82 15 01/10/24 07:18 98.1 F 82 15 105/67 96 01/10/24 01:11 97.5 F L 82 17 113/67 94 L 01/09/24 18:51 97.7 F 86 16 120/79 95 01/09/24 13:40 75 108/73 01/09/24 12:40 75 111/66 01/09/24 12:10 87 111/67 Intake and Output 01/09/24 01/10/24 01/10/24 22:59 06:59 14:59 Other: Voiding Method Diaper Diaper # Voids 2 3 Results CBC & Chem 7: 01/09/24 06:28 01/09/24 06:28 Assessment and Plan (1) Decubitus ulcer of left buttock, stage 1 Current Visit: Yes Status: Acute Code(s): L89.321 - PRESSURE ULCER OF LEFT BUTTOCK, STAGE 1 SNOMED Code(s): 94502981410479 (2) Decubitus ulcer of right buttock, stage 1 Current Visit: Yes Status: Acute Code(s): L89.311 - PRESSURE ULCER OF RIGHT BUTTOCK, STAGE 1 SNOMED Code(s): 05488868890502 (3) Dermatitis associated with moisture Current Visit: Yes Status: Acute Code(s): L30.8 - OTHER SPECIFIED DERMATITIS SNOMED Code(s): 256355784
[2024-01-11] MEDS ORDERED: NYSTATIN 100,000 UNIT/GM OINT 30 GM TUBE TOPICAL SCH (09:00)
== END 2024-01-10 12:43 | disposition home health service (06) | DRG 988 ==
LOC: EC 08:52 → 3SCARD 11:28 → 5NMEDONC 01-07 22:21
PROVIDERS: ADMIT Student in an Organized Health Care Education/Training Program; ATTEND Student in an Organized Health Care Education/Training Program
PROC: 0FT44ZZ Resection of Gallbladder, Percutaneous Endoscopic Approach (ICD-10-PCS; principal; 2024-01-09 10:20)
DX: F10.229 Alcohol dependence with intoxication, unspecified (principal); B37.49 Other urogenital candidiasis; K80.10 Calculus of gallbladder with chronic cholecystitis without obstruction; E87.29 Other acidosis; E87.1 Hypo-osmolality and hyponatremia; F10.239 Alcohol dependence with withdrawal, unspecified; I10 Essential (primary) hypertension; R74.01 Elevation of levels of liver transaminase levels; Y90.8 Blood alcohol level of 240 mg/100 ml or more; M54.50 Low back pain, unspecified; R32 Unspecified urinary incontinence; M19.90 Unspecified osteoarthritis, unspecified site; G89.29 Other chronic pain; G62.9 Polyneuropathy, unspecified; M25.512 Pain in left shoulder; L89.321 Pressure ulcer of left buttock, stage 1; L89.311 Pressure ulcer of right buttock, stage 1; L30.8 Other specified dermatitis; K62.89 Other specified diseases of anus and rectum; F41.9 Anxiety disorder, unspecified; F17.210 Nicotine dependence, cigarettes, uncomplicated; Z88.2 Allergy status to sulfonamides; Z91.041 Radiographic dye allergy status; Z79.899 Other long term (current) drug therapy; Z95.810 Presence of automatic (implantable) cardiac defibrillator
CPT/HCPCS: 36415; 74177; 80053; 80320; 82272; 83605; 83690; 83735; 85025; 85027; 85610; 85730; 88304; 93005; 96365; 96366; 96372; 96375; 96376; 99285

== ENCOUNTER 2024-01-18 18:08 | Emergency (ER) | payer BC, OTHER ==
--- NOTE | 2024-01-18 18:27 | ED ---
Skin/Abscess/FB HPI - General Source: RN notes reviewed <Tania Frances - Last Filed: 01/18/24 18:25> <Kalin Lorenz - Last Filed: 01/19/24 00:25> - General Stated complaint: Rash Time Seen by Provider: 01/18/24 18:10 - History of Present Illness Initial comments: Quick [id number] female presenting with complaints of rash x 1 day. States she has a red, itchy rash present diffusely across her body. She has never had this before. Denies fever, chest pain, shortness of breath. (Tania Frances) 63-year-old female with history of alcohol use disorder presenting with chief complaint of rash. Patient has had this rash for several weeks. It is a diffuse and pruritic rash across the trunk and extremities. It is present in raised erythematous patches. Patient has been evaluated by infectious disease for this rash and they advised dermatology. An appointment was made for patient to see dermatology by case management, patient states that she knew nothing about this and did not attend this appointment. She is having no difficulty breathing or swallowing. No nausea or vomiting. (Kailn Lorenz) - Related Data Home Medications Medication Instructions Recorded Confirmed Multivitamins, Thera [Multivitamin 1 tab PO DAILY 11/27/23 01/05/24 (formulary)] Folic Acid-Vit B Complex-Vit C 1 cap PO DAILY 12/09/23 01/05/24 [Nephrocaps] Cholecalciferol (Vitamin D3) 50 mcg PO DAILY 12/22/23 01/05/24 [Vitamin D3 (50 Mcg = 2000 Iu)] predniSONE See Taper PO DIRECTED 01/05/24 01/05/24 Previous Rx's Medication Instructions Recorded Magnesium Oxide [Mag-Ox] 400 mg PO DAILY #15 tab 11/29/23 Nystatin 100,000 Unit/gm Powd 1 applic TOPICAL TID #1 each 11/29/23 [Mycostatin Powder] Pantoprazole [Protonix] 40 mg PO AC-BRKFST #30 tab 11/29/23 Thiamine [Vitamin B-1] 100 mg PO DAILY #30 tab 11/29/23 hydrALAZINE HCL [Apresoline] 25 mg PO BID 30 Days #60 tab 12/27/23 hydrOXYzine HCL [Atarax] 25 mg PO TID PRN #15 tab 01/04/24 HYDROcodone/APAP 5-325MG [[place] 1 tab PO Q6HR PRN 3 Days #12 tab 01/10/24 5-325] Mirtazapine [Remeron] 15 mg PO HS 30 Days #30 tab 01/10/24 Nystatin 100,000 Unit/gm Oint 1 applic TOPICAL TID 30 Days #1 01/10/24 [Mycostatin Oint] cream Sertraline [Zoloft] 50 mg PO DAILY 30 Days #30 tab 01/10/24 Allergies Allergy/AdvReac Type Severity Reaction Status Date / Time shellfish derived [Shellfish] Allergy Severe Dyspnea Verified 01/09/24 09:45 iodine Allergy Rash/Hives Verified 01/09/24 09:45 Sulfa (Sulfonamide Allergy Rash/Hives Verified 01/09/24 09:45 Antibiotics) Review of Systems ROS Other: All systems not noted in ROS Statement are negative. <Tania Frances - Last Filed: 01/18/24 18:25> ROS Other: All systems not noted in ROS Statement are negative. <Kalin Lorenz - Last Filed: 01/19/24 00:25> ROS Statement: Those systems with pertinent positive or pertinent negative responses have been documented in the HPI. 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 History of Any Multi-Drug Resistant Organisms: None Reported Past Surgical History: AICD, Back Surgery Additional Past Surgical History / Comment(s): Cervical surgery at [facility] d/t injury, colonoscopies/benign polypectomy Past Anesthesia/Blood Transfusion Reactions: No Reported Reaction, Motion Sickness Additional Past Anesthesia/Blood Transfusion Reaction / Comment(s): PT has clausterphobia. Past Psychological History: Anxiety Smoking Status: Current some day smoker Past Alcohol Use History: Abuse, Daily, Heavy Past Drug Use History: None Reported - Past Family History Mother Family Medical History: Cancer Additional Family Medical History / Comment(s): Mother of melanoma Father Family Medical History: No Reported History Additional Family Medical History / Comment(s): Father is healthy <Tania Frances - Last Filed: 01/18/24 18:25> General Exam <Juan DanielZoraTania - Last Filed: 01/18/24 18:25> General appearance: alert, in no apparent distress Head exam: Present: atraumatic, normocephalic Eye exam: Present: normal appearance, EOMI Neck exam: Present: normal inspection. Absent: meningismus Respiratory exam: Present: normal lung sounds bilaterally. Absent: respiratory distress, wheezes, rales, rhonchi, stridor Cardiovascular Exam: Present: regular rate, normal rhythm, normal heart sounds. Absent: systolic murmur, diastolic murmur, rubs, gallop, clicks Neurological exam: Present: alert, oriented X3 Psychiatric exam: Present: normal affect, normal mood Skin exam: Present: rash <Kalin Lorenz - Last Filed: 01/19/24 00:25> - General Exam Comments Initial Comments: Visual Physical Exam General: Well-appearing, nontoxic, no acute distress. Head: Normocephalic, atraumatic Eyes: PERRLA, EOMI ENT: Airway patent Chest: Nonlabored breathing Skin: No visual rash, normal skin tone Neuro: Alert and oriented 3 Musculoskeletal: No gross abnormalities (Tania Frances) Course Vital Signs 01/18/24 01/18/24 18:35 22:16 Temperature 96.3 F L 97.6 F Pulse Rate 78 83 Respiratory 18 18 Rate Blood Pressure 98/59 121/77 O2 Sat by Pulse 96 98 Oximetry Medical Decision Making <Tania Frances - Last Filed: 01/18/24 18:25> <Kalin Lorenz - Last Filed: 01/19/24 00:25> - Medical Decision Making I completed the quick note portion of this chart signed Tania Frances PA-C (Tania Frances) Was pt. sent in by a medical professional or institution (, PA, RECYCLING CREW SUPERVISOR, urgent care, hospital, or ch[facility]...) When possible be specific @ -No Did you speak to anyone other than the patient for history (EMS, parent, family, police, friend...)? What history was obtained from this source @ -No Did you review nursing and triage notes (agree or disagree)? Why? @ -I reviewed and agree with nursing and triage notes Were old charts reviewed (outside hosp., previous admission, EMS record, old EKG, old radiological studies, urgent care reports/EKG's, [facility] records)? Report findings @ -No old charts were reviewed Differential Diagnosis (chest pain, altered mental status, abdominal pain women, abdominal pain men, vaginal bleeding, weakness, fever, dyspnea, syncope, headache, dizziness, GI bleed, back pain, seizure, CVA, palpatations, mental health, musculoskeletal)? @ -Differential includes drug reaction, cellulitis, tinea, Lange-David syndrome, this is not an all-inclusive list EKG interpreted by me (3pts min.). @ -As above X-rays interpreted by me (1pt min.). @ -None done CT interpreted by me (1pt min.). @ -None done U/S interpreted by me (1pt. min.). @ -None done What testing was considered but not performed or refused? (CT, X-rays, U/S, labs)? Why? @ -None What meds were considered but not given or refused? Why? @ -None Did you discuss the management of the patient with other professionals (professionals i.e. , PA, RECYCLING CREW SUPERVISOR, lab, RT, psych nurse, social work nurse, internal grinder set up operator, teacher, security officer, medical case worker)? Give summary @ -No Was smoking cessation discussed for >3mins.? @ -No Was critical care preformed (if so, how long)? @ -No Were there social determinants of health that impacted care today? How? (Homelessness, low income, unemployed, alcoholism, drug addiction, transportation, low edu. Level, literacy, decrease access to med. care, intermediate, rehab)? @ -No Was there de-escalation of care discussed even if they declined (Discuss DNR or withdrawal of care, Hospice)? DNR status @ -No What co-morbidities impacted this encounter? (DM, HTN, Smoking, COPD, CAD, Cancer, CVA, ARF, Chemo, Hep., AIDS, mental health diagnosis, sleep apnea, morbid obesity)? @ -None Was patient admitted / discharged? Hospital course, mention meds given and route, prescriptions, significant lab abnormalities, going to OR and other pertinent info. @ -63-year-old female presenting with chief complaint of rash. Patient has had this rash for several weeks and has been evaluated by her infectious disease team was advised to follow-up with dermatology. Patient has not attended a dermatology appointment yet. She is complaining of itching. No difficulty breathing or swallowing. She is treated with Solu-Medrol and Benadryl. Educated on supportive management and the need for dermatology follow-up. Discharged home. Follow-up with PCP. Report back to ER with any new or worsening symptoms. Discussed return parameters and answered all questions. Patient conveyed verbal understanding and agreed to the plan. I discussed this case in detail with my attending Dr. varghese Undiagnosed new problem with uncertain prognosis? @ -No Drug Therapy requiring intensive monitoring for toxicity (Heparin, Nitro, Insulin, Cardizem)? @ -No Were any procedures done? @ -No Diagnosis/symptom? @ -Rash Acute, or Chronic, or Acute on Chronic? @ -Acute Uncomplicated (without systemic symptoms) or Complicated (systemic symptoms)? @ -Uncomplicated Side effects of treatment? @ -No Exacerbation, Progression, or Severe Exacerbation? @ -No Poses a threat to life or bodily function? How? (Chest pain, [place], [place], pneumonia, PE, COPD, DKA, ARF, appy, cholecystitis, CVA, Diverticulitis, Homicidal, Suicidal, threat to staff... and all critical care pts) @ -Low likelihood (Kalin Lorenz) Disposition <Tania Frances - Last Filed: 01/18/24 18:25> Is patient prescribed a controlled substance at d/c from ED?: No Time of Disposition: 21:09 <Kalin Lorenz - Last Filed: 01/19/24 00:25> Clinical Impression: Rash Disposition: HOME SELF-CARE Condition: Good Instructions (If sedation given, give patient instructions): Acute Rash (ED) Additional Instructions: You must follow-up with dermatology regarding this rash. Report back to ER with any new or worsening symptoms. Referrals: None,Stated [Primary Care Provider] - 1-2 days Nora Nguyen MD [STAFF PHYSICIAN] - 1-2 days
[2024-01-18 18:42] VITALS: RESP 18
[2024-01-18] MEDS: methylPREDNISolone SOD SUCCI 125 MG/2 ML VIAL IV ONE (21:13)
[2024-01-18] MEDS: diphenhydrAMINE 25 MG CAP PO STA (21:14)
[2024-01-18 22:40] VITALS: BP 121/77; PULSE 83; TEMP 97.6
== END 2024-01-18 22:18 | disposition home or self-care (01) ==
LOC: EC 18:08
DX: R21 Rash and other nonspecific skin eruption (principal); F17.200 Nicotine dependence, unspecified, uncomplicated; Z88.2 Allergy status to sulfonamides; Z91.013 Allergy to seafood; Z91.041 Radiographic dye allergy status
CPT/HCPCS: 99282; 96374; J2919

== ENCOUNTER 2024-01-23 23:44 | Inpatient (IN) | payer BC, OTHER ==
[2024-01-24 02:16] LABS: ALT 28 U/L (4-34); AST 57 U/L (14-36); African American GFR (CKD) >90 (>60 ml/min/1.73 sqM); Alkaline Phosphatase 111 U/L (38-126); Anion Gap 14 mmol/L; Blood Urea Nitrogen 7 mg/dL (7-17); Calcium 7.9 mg/dL (8.4-10.2); Carbon Dioxide 21 mmol/L (22-30); Chloride 110 mmol/L (98-107); Glucose 78 mg/dL (74-99); Lipase 26 U/L (23-300); Magnesium 1.8 mg/dL (1.6-2.3); Non-African American GFR(CKD) >90 (>60 ml/min/1.73 sqM); Potassium 5.6 mmol/L (3.5-5.1); Sodium 145 mmol/L (137-145); Total Bilirubin 1.1 mg/dL (0.2-1.3); Total Protein 7.1 g/dL (6.3-8.2)
[2024-01-24 02:43] LABS: Alcohol 410 mg/dL
[2024-01-24] MEDS ORDERED: NALOXONE 0.4 MG/ML 1 ML VIAL IV PRN (03:07)
--- NOTE | 2024-01-24 03:07 | ED ---
Alcohol HPI - General Chief Complaint: Alcohol Stated Complaint: ETOH Time Seen by Provider: 01/23/24 23:50 Source: patient, EMS Mode of arrival: EMS Limitations: no limitations - History of Present Illness Initial Comments: 63-year-old female brought in for diarrhea. Patient is repetitively calling and harassing EMS. She called EMS to come to her house to change her diaper. Patient is incontinent of urine and stool due to her heavy alcohol use. She has been seen and evaluated in the emergency department several times because of her alcohol dependence. Patient is a very poor historian. She denies any black or bloody stools. She denies any abdominal pain. Patient arrives to the hospital covered in urine and stool. She is very well unkempt. States that she lives with her who does not care for her. - Related Data Home Medications Medication Instructions Recorded Confirmed No Known Home Medications 01/24/24 01/24/24 Allergies Allergy/AdvReac Type Severity Reaction Status Date / Time shellfish derived [Shellfish] Allergy Severe Dyspnea Verified 01/24/24 10:17 iodine Allergy Rash/Hives Verified 01/24/24 10:17 Sulfa (Sulfonamide Allergy Rash/Hives Verified 01/24/24 10:17 Antibiotics) Review of Systems ROS Statement: Those systems with pertinent positive or pertinent negative responses have been documented in the HPI. ROS Other: All systems not noted in ROS Statement are negative. 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 History of Any Multi-Drug Resistant Organisms: None Reported Past Surgical History: AICD, Back Surgery Additional Past Surgical History / Comment(s): Cervical surgery at [facility] d/t injury, colonoscopies/benign polypectomy Past Anesthesia/Blood Transfusion Reactions: No Reported Reaction, Motion Sickness Additional Past Anesthesia/Blood Transfusion Reaction / Comment(s): PT has clausterphobia. Past Psychological History: Anxiety Smoking Status: Current some day smoker Past Alcohol Use History: Abuse, Daily, Heavy Past Drug Use History: None Reported - Past Family History Mother Family Medical History: Cancer Additional Family Medical History / Comment(s): Mother of melanoma Father Family Medical History: No Reported History Additional Family Medical History / Comment(s): Father is healthy General Exam Limitations: altered mental status General appearance: alert, appears intoxicated, other (Patient is filthyshe is covered in stool and urine. She has extensive skin breakdown due to contact with the substances) Head exam: Present: atraumatic, normocephalic, normal inspection Eye exam: Present: normal appearance, PERRL, EOMI. Absent: scleral icterus, conjunctival injection, periorbital swelling ENT exam: Present: mucous membranes dry Cardiovascular Exam: Present: regular rate, normal rhythm, normal heart sounds. Absent: systolic murmur, diastolic murmur, rubs, gallop, clicks GI/Abdominal exam: Present: soft, normal bowel sounds. Absent: distended, tenderness, guarding, rebound, rigid Rectal exam: Present: normal inspection Neurological exam: Present: altered Course Vital Signs 01/23/24 01/24/24 01/24/24 23:46 05:06 06:49 Temperature 98.2 F 97.6 F Pulse Rate 82 90 93 Respiratory 18 17 18 Rate Blood Pressure 110/70 96/62 101/60 O2 Sat by Pulse 97 99 96 Oximetry 01/24/24 01/24/24 01/24/24 08:01 09:06 10:05 Temperature 99.1 F Pulse Rate 86 86 94 Respiratory 17 17 17 Rate Blood Pressure 105/61 105/61 122/66 O2 Sat by Pulse 95 96 97 Oximetry 01/24/24 01/24/24 01/24/24 11:04 12:25 13:39 Temperature 99.1 F 98.6 F Pulse Rate 87 99 101 H Respiratory 17 20 20 Rate Blood Pressure 122/66 143/81 150/86 O2 Sat by Pulse 95 98 95 Oximetry 01/24/24 01/24/24 01/24/24 14:40 15:05 16:05 Temperature Pulse Rate 93 93 93 Respiratory 18 18 16 Rate Blood Pressure 133/86 133/86 142/87 O2 Sat by Pulse 98 97 95 Oximetry Medical Decision Making - Medical Decision Making Was pt. sent in by a medical professional or institution (EDITH Bolton, PATIENT SERVICES COORDINATOR, urgent care, hospital, or fpc...) When possible be specific @ -No Did you speak to anyone other than the patient for history (EMS, parent, family, police, friend...)? What history was obtained from this source @ -I spoke with EMS for history. They were sent to her house as she was reporting she needed assistance in changing her diaper Did you review nursing and triage notes (agree or disagree)? Why? @ -I reviewed and agree with nursing and triage notes Were old charts reviewed (outside hosp., previous admission, EMS record, old EKG, old radiological studies, urgent care reports/EKG's, fpc records)? Report findings @ -I reviewed patient's discharge summary from January 09. Patient did have a psychiatric evaluation during that hospitalization by Dr. Skip caba. Patient was deemed stable for discharge home Differential Diagnosis (chest pain, altered mental status, abdominal pain women, abdominal pain men, vaginal bleeding, weakness, fever, dyspnea, syncope, headache, dizziness, GI bleed, back pain, seizure, CVA, palpatations, mental he alth, musculoskeletal)? @ -Differential Altered Mental Status: Hypoglycemia, DKA, hypercapnia, ETOH, overdose, CO poisoning, trauma, myxedema coma, HTN encephalopathy, infection, encephalitis, psychosis, intercranial hemorrhage, hepatic encephalopathy, meningitis, CVA, this is not meant to be an all-inclusive list EKG interpreted by me (3pts min.). @ -Not done X-rays interpreted by me (1pt min.). @ -None done CT interpreted by me (1pt min.). @ -None done U/S interpreted by me (1pt. min.). @ -None done What testing was considered but not performed or refused? (CT, X-rays, U/S, labs)? Why? @ -None What meds were considered but not given or refused? Why? @ -None Did you discuss the management of the patient with other professionals (professionals i.e. EDITH Bolton, PATIENT SERVICES COORDINATOR, lab, RT, psych nurse, executive secretary social welfare, cook boat, teacher, technology officer, field case manager)? Give summary @ -Spoke with Dr. Torres. I feel that the patient needs to be admitted due to her complete lack of self maintenance and need for possible guardian Was smoking cessation discussed for >3mins.? @ -No Was critical care preformed (if so, how long)? @ -No Were there social determinants of health that impacted care today? How? (Homelessness, low income, unemployed, alcoholism, drug addiction, transportation, low edu. Level, literacy, decrease access to med. care, assisted, rehab)? @ -No Was there de-escalation of care discussed even if they declined (Discuss DNR or withdrawal of care, Hospice)? DNR status @ -No What co-morbidities impacted this encounter? (DM, HTN, Smoking, COPD, CAD, Cancer, CVA, ARF, Chemo, Hep., AIDS, mental health diagnosis, sleep apnea, morbid obesity)? @ -Alcoholism Was patient admitted / discharged? Hospital course, mention meds given and route, prescriptions, significant lab abnormalities, going to OR and other pertinent info. @ -Upon arrival patient was seen and evaluated in room 9. Thorough history and physical exam was performed. Patient is so intoxicated that she cannot sit up right in a chair. She is covered in her own excrement. IV was established. Laboratory studies are conducted. Patient is significantly intoxicated. Patient does not have a ride home. I am concerned about her ability to care for herself and therefore I will admit the patient with social work to consult Undiagnosed new problem with uncertain prognosis? @ -No Drug Therapy requiring intensive monitoring for toxicity (Heparin, Nitro, Insulin, Cardizem)? @ -No Were any procedures done? @ -No Diagnosis/symptom? @ -Acute alcohol intoxication Acute, or Chronic, or Acute on chronic? @ -Acute on chronic Uncomplicated (without systemic symptoms) or Complicated (systemic symptoms)? @ -Complicated Side effects of treatment? @ -No Exacerbation, Progression, or Severe Exacerbation? @ -No Poses a threat to life or bodily function? How? (Chest pain, [place], [place], pneumonia, PE, COPD, DKA, ARF, appy, cholecystitis, CVA, Diverticulitis, Homicidal, Suicidal, threat to staff... and all critical care pts) @ -No - Lab Data Result diagrams: 01/24/24 01:45 01/24/24 01:45 Lab Results 01/24/24 01/24/24 Range/Units 01:45 01:45 WBC 11.5 H (3.8-10.6) k/uL RBC 4.51 (3.80-5.40) m/uL Hgb 15.2 (11.4-16.0) gm/dL Hct 46.2 H (34.0-46.0) % MCV 102.5 H (80.0-100.0) fL MCH 33.6 (25.0-35.0) pg MCHC 32.8 (31.0-37.0) g/dL RDW 14.9 (11.5-15.5) % Plt Count 431 D (150-450) k/uL MPV 7.6 Neutrophils % 64 % Lymphocytes % 26 % Monocytes % 3 % Eosinophils % 5 % Basophils % 1 % Neutrophils # 7.3 (1.3-7.7) k/uL Lymphocytes # 2.9 (1.0-4.8) k/uL Monocytes # 0.4 (0-1.0) k/uL Eosinophils # 0.6 (0-0.7) k/uL Basophils # 0.1 (0-0.2) k/uL Macrocytosis Slight Sodium 145 (137-145) mmol/L Potassium 5.6 H (3.5-5.1) mmol/L Chloride 110 H (98-107) mmol/L Carbon Dioxide 21 L (22-30) mmol/L Anion Gap 14 mmol/L BUN 7 (7-17) mg/dL Creatinine 0.38 L (0.52-1.04) mg/dL Est GFR (CKD-EPI)AfAm >90 (>60 ml/min/1.73 sqM) Est GFR (CKD-EPI)NonAf >90 (>60 ml/min/1.73 sqM) Glucose 78 (74-99) mg/dL Calcium 7.9 L (8.4-10.2) mg/dL Magnesium 1.8 (1.6-2.3) mg/dL Total Bilirubin 1.1 (0.2-1.3) mg/dL AST 57 H (14-36) U/L ALT 28 (4-34) U/L Alkaline Phosphatase 111 (38-126) U/L Total Protein 7.1 (6.3-8.2) g/dL Albumin 4.0 (3.5-5.0) g/dL Lipase 26 (23-300) U/L Serum Alcohol 410 H* mg/dL Disposition Clinical Impression: Alcohol intoxication Disposition: ADMITTED IP TO THIS HOSP Condition: Stable Is patient prescribed a controlled substance at d/c from ED?: No Time of Disposition: 03:06 Decision to Admit Reason: Admit from EC Decision Date: 01/24/24 Decision Time: 03:07
[2024-01-24] MEDS ORDERED: LORazepam 2 MG/ML INJ IV PRN (03:08)
[2024-01-24 03:14] LABS: Basophils # (A) 0.1 k/uL (0-0.2); Basophils % (A) 1 %; Eosinophils # (A) 0.6 k/uL (0-0.7); Eosinophils % (A) 5 %; HCT 46.2 % (34.0-46.0); HGB 15.2 gm/dL (11.4-16.0); Lymphocytes # (A) 2.9 k/uL (1.0-4.8); Lymphocytes % (A) 26 %; MCH 33.6 pg (25.0-35.0); MCHC 32.8 g/dL (31.0-37.0); MCV 102.5 fL (80.0-100.0); Macrocytosis Slight; Mean Platelet Volume 7.6; Monocytes # (A) 0.4 k/uL (0-1.0); Monocytes % (A) 3 %; Neutrophils # (A) 7.3 k/uL (1.3-7.7); Neutrophils % (A) 64 %; RBC 4.51 m/uL (3.80-5.40); RDW 14.9 % (11.5-15.5); WBC 11.5 k/uL (3.8-10.6)
[2024-01-24 03:18] LABS: Platelet Count 431 k/uL (150-450)
[2024-01-24] MEDS: SODIUM CHLORIDE 0.9% 1,000 ML IV SCH (04:57)
[2024-01-24] MEDS: THIAMINE 100 MG/ML 2 ML VIAL IM STA (05:03)
[2024-01-24] MEDS: LORazepam 2 MG/ML INJ IV PRN ×2 (06:51→10:07)
[2024-01-24] MEDS ORDERED: HYDROcodone/APAP 5-325MG 1 EACH TAB PO PRN (09:56)
--- NOTE | 2024-01-24 09:59 | P.HPIM ---
History of Present Illness H&P Date: 01/24/24 This is a 63-year-old female patient who reports that EMS was called due to patient's weakness. Patient has a known past medical history of EtOH but she states she usually drinks a pint of whiskey daily. Additional medical history includes hypertension and osteoarthritis. Patient also has AICD and history of back surgery. Lab work revealing serum alcohol for 410, potassium 5.6 creatin 0.38 bun 7 sodium 145. Current vital signs temp 97.6, heart rate 90, respiratory rate 17, blood pressure 105/61 with pulse ox 96% on room air at this time patient will be admitted alcohol withdrawal protocol has been ordered. Social work services consulted for possible rehab. Patient denies chest pain or s hortness breath. Patient denies nausea vomiting or diarrhea. 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 History of Any Multi-Drug Resistant Organisms: None Reported Past Surgical History: AICD, Back Surgery Additional Past Surgical History / Comment(s): Cervical surgery at [facility] d/t injury, colonoscopies/benign polypectomy Past Anesthesia/Blood Transfusion Reactions: No Reported Reaction, Motion Sickness Additional Past Anesthesia/Blood Transfusion Reaction / Comment(s): PT has clausterphobia. Past Psychological History: Anxiety Smoking Status: Current some day smoker Past Alcohol Use History: Abuse, Daily, Heavy Past Drug Use History: None Reported - Past Family History Mother Family Medical History: Cancer Additional Family Medical History / Comment(s): Mother of melanoma Father Family Medical History: No Reported History Additional Family Medical History / Comment(s): Father is healthy Medications and Allergies Home Medications Medication Instructions Recorded Confirmed Type Multivitamins, Thera [Multivitamin 1 tab PO DAILY 11/27/23 01/05/24 History (formulary)] Magnesium Oxide [Mag-Ox] 400 mg PO DAILY #15 tab 11/29/23 01/05/24 Rx Nystatin 100,000 Unit/gm Powd 1 applic TOPICAL TID #1 each 11/29/23 01/05/24 Rx [Mycostatin Powder] Pantoprazole [Protonix] 40 mg PO AC-BRKFST #30 tab 11/29/23 01/05/24 Rx Thiamine [Vitamin B-1] 100 mg PO DAILY #30 tab 11/29/23 01/05/24 Rx Folic Acid-Vit B Complex-Vit C 1 cap PO DAILY 12/09/23 01/05/24 History [Nephrocaps] Cholecalciferol (Vitamin D3) 50 mcg PO DAILY 12/22/23 01/05/24 History [Vitamin D3 (50 Mcg = 2000 Iu)] hydrALAZINE HCL [Apresoline] 25 mg PO BID 30 Days #60 tab 12/27/23 01/05/24 Rx hydrOXYzine HCL [Atarax] 25 mg PO TID PRN #15 tab 01/04/24 01/05/24 Rx predniSONE See Taper PO DIRECTED 01/05/24 01/05/24 History HYDROcodone/APAP 5-325MG [[employer] [place] 1 tab PO Q6HR PRN 3 Days #12 tab 01/10/24 Rx 5-325] Mirtazapine [Remeron] 15 mg PO HS 30 Days #30 tab 01/10/24 Rx Nystatin 100,000 Unit/gm Oint 1 applic TOPICAL TID 30 Days #1 01/10/24 Rx [Mycostatin Oint] cream Sertraline [Zoloft] 50 mg PO DAILY 30 Days #30 tab 01/10/24 Rx Allergies Allergy/AdvReac Type Severity Reaction Status Date / Time shellfish derived [Shellfish] Allergy Severe Dyspnea Verified 01/09/24 09:45 iodine Allergy Rash/Hives Verified 01/09/24 09:45 Sulfa (Sulfonamide Allergy Rash/Hives Verified 01/09/24 09:45 Antibiotics) Physical Exam Vitals: Vital Signs Temp Pulse Resp BP Pulse Ox 01/24/24 09:06 86 17 105/61 96 01/24/24 08:01 86 17 105/61 95 01/24/24 06:49 93 18 101/60 96 01/24/24 05:06 97.6 F 90 17 96/62 99 01/23/24 23:46 98.2 F 82 18 110/70 97 Intake and Output 01/23/24 01/24/24 01/24/24 22:59 06:59 14:59 Other: Weight 72.575 kg Head normocephalic Neck supple Lungs clear to auscultation bilaterally no wheezing or crackles Heart regular rate and rhythm S1-S2, no rub or gallop Abdomen is soft nontender nondistended positive bowel sounds no hepatosplenomegaly Extremities no edema Neuro alert and orientated to 3 Results CBC & Chem 7: 01/24/24 01:45 01/24/24 01:45 Labs: Abnormal Lab Results - Last 24 Hours (Table) 01/24/24 01/24/24 Range/Units 01:45 01:45 WBC 11.5 H (3.8-10.6) k/uL Hct 46.2 H (34.0-46.0) % MCV 102.5 H (80.0-100.0) fL Potassium 5.6 H (3.5-5.1) mmol/L Chloride 110 H (98-107) mmol/L Carbon Dioxide 21 L (22-30) mmol/L Creatinine 0.38 L (0.52-1.04) mg/dL Calcium 7.9 L (8.4-10.2) mg/dL AST 57 H (14-36) U/L Serum Alcohol 410 H* mg/dL Assessment and Plan Assessment: 1. Alcohol intoxication 2. History of alcohol abuse and withdrawal 3. History of cholecystitis patient underwent lap ángela on 01/09/2024 4. Ongoing nicotine dependence 5. Essential hypertension 6. History of back pain at this time patient will be admitted alcohol withdrawal protocol initiated Social work services consulted Time with Patient: Greater than 30 (Greater than 60% of the total time spent in counseling and coordination of care)
[2024-01-24] MEDS ORDERED: hydrALAZINE HCL 25 MG TAB PO SCH (21:00)
[2024-01-24] MEDS ORDERED: MIRTAZAPINE 15 MG TAB PO SCH (21:00)
[2024-01-24] MEDS ORDERED: LORazepam 1 MG/0.5 ML VIAL IV PRN (23:11)
[2024-01-24] MEDS: LORazepam 1 MG/0.5 ML VIAL IV PRN (23:14)
[2024-01-25] MEDS ORDERED: PANTOPRAZOLE 40 MG TABLET PO SCH (07:30)
[2024-01-25] MEDS: THIAMINE 100 MG TAB PO SCH (08:17)
[2024-01-25] MEDS: MAGNESIUM OXIDE 400 MG TAB PO SCH (08:17)
[2024-01-25] MEDS: MULTIVITAMINS, THERA 1 EACH TAB PO SCH (08:17)
[2024-01-25] MEDS: CHOLECALCIFEROL 25 MCG (1000 IU) TABLET PO SCH (08:17)
[2024-01-25] MEDS: SERTRALINE 50 MG TAB PO SCH (08:18)
[2024-01-25] MEDS ORDERED: FOLIC ACID-VIT B COMPLEX-VIT C 1 CAP PO SCH (09:00)
[2024-01-25] MEDS: LORazepam 1 MG/0.5 ML VIAL IV PRN (10:04)
[2024-01-25 10:23] LABS: Basophils # (A) 0.04 X 10*3/uL (0.00-0.10); Basophils % (A) 0.5 %; Eosinophils # (A) 0.87 X 10*3/uL (0.04-0.35); Eosinophils % (A) 10.3 %; HCT 34.7 % (37.2-46.3); HGB 11.6 g/dL (12.0-15.0); Lymphocytes # (A) 1.46 X 10*3/uL (0.90-5.00); Lymphocytes % (A) 17.4 %; MCH 33.1 pg (27.0-32.0); MCHC 33.4 g/dL (32.0-37.0); MCV 99.1 FL (80.0-97.0); Mean Platelet Volume 9.2 FL (9.5-12.2); Monocytes # (A) 0.52 X 10*3/uL (0.20-1.00); Monocytes % (A) 6.2 %; NRBC Per 100 WBC 0 X 10*3/uL (0.00-0.01); Neutrophils # (A) 5.48 X 10*3/uL (1.80-7.70); Neutrophils % (A) 65.1 %; Platelet Count 200 X 10*3/uL (140-440); RDW 14.6 % (11.5-14.5); WBC 8.41 X 10*3/uL (4.50-10.00)
[2024-01-25 10:43] LABS: BUN/Creat Ratio 10.75 Ratio (12.00-20.00); Blood Urea Nitrogen 4.3 mg/dL (9.0-27.0); Calcium 7.5 mg/dL (8.7-10.3); Carbon Dioxide 18.6 mmol/L (21.6-31.8); Chloride 104 mmol/L (96-109); Glucose 90 mg/dL (70-110); Potassium 3.4 mmol/L (3.5-5.5); Sodium 135 mmol/L (135-145)
--- NOTE | 2024-01-25 11:32 | P.PN ---
Subjective Progress Note Date: 01/25/24 This is a 63-year-old female patient who reports that EMS was called due to patient's weakness. Patient has a known past medical history of EtOH but she states she usually drinks a pint of whiskey daily. Additional medical history includes hypertension and osteoarthritis. Patient also has AICD and history of back surgery. Lab work revealing serum alcohol for 410, potassium 5.6 creatin 0.38 bun 7 sodium 145. Current vital signs temp 97.6, heart rate 90, respiratory rate 17, blood pressure 105/61 with pulse ox 96% on room air at this time patient will be admitted alcohol withdrawal protocol has been ordered. Social work services consulted for possible rehab. Patient denies chest pain or shortn ess breath. Patient denies nausea vomiting or diarrhea. Patient denies any urinary burning Or frequency On 01/25/2024 patient's alert and oriented 3. Patient complaining of tremors. Patient remains on oncology protocol. Also complaining of ongoing rash this has been a previous issue for patient. Patient had temperature of 100.1 this a.m. Will consult infectious disease. chest x-rayIn urinary analysis ordered. Patient denies chest pain or shortness breath. Patient denies nausea vomiting or diarrhea. Patient denies any urinary burning or frequency Objective - Vital Signs Vital signs: Vital Signs Temp 98.4 F 01/25/24 07:46 Pulse 84 01/25/24 07:46 Resp 16 01/25/24 07:46 BP 157/80 01/25/24 07:46 Pulse Ox 96 01/25/24 07:46 FiO2 Intake & Output 01/24/24 01/25/24 01/25/24 18:59 06:59 18:59 Weight 72.575 kg Other: Voiding Method Diaper Diaper Incontinent Incontinent # Voids 2 # Bowel Movements 1 - Exam Head normocephalic Neck supple Lungs clear to auscultation bilaterally no wheezing or crackles Heart regular rate and rhythm S1-S2, no rub or gallop Abdomen is soft nontender nondistended positive bowel sounds no hepatosplenomegaly Extremities no edema Neuro alert and orientated to 3 - Labs CBC & Chem 7: 01/25/24 07:09 01/25/24 07:09 Labs: Abnormal Lab Results - Last 24 Hours (Table) 01/25/24 01/25/24 Range/Units 07:09 07:09 RBC 3.50 L (4.10-5.20) X 10*6/uL Hgb 11.6 L (12.0-15.0) g/dL Hct 34.7 L (37.2-46.3) % MCV 99.1 H (80.0-97.0) FL MCH 33.1 H (27.0-32.0) pg RDW 14.6 H (11.5-14.5) % MPV 9.2 L (9.5-12.2) FL Eosinophils # 0.87 H (0.04-0.35) X 10*3/uL Potassium 3.4 L (3.5-5.5) mmol/L Carbon Dioxide 18.6 L (21.6-31.8) mmol/L Anion Gap 12.40 H (4.00-12.00) mmol/L BUN 4.3 L (9.0-27.0) mg/dL Creatinine 0.4 L (0.6-1.5) mg/dL BUN/Creatinine Ratio 10.75 L (12.00-20.00) Ratio Calcium 7.5 L (8.7-10.3) mg/dL Assessment and Plan Assessment: 1. Alcohol intoxication 2. History of alcohol abuse and withdrawal 3. History of cholecystitis patient underwent lap ángela on 01/09/2024 4. Ongoing nicotine dependence 5. Essential hypertension 6. History of back pain 7. Febrile. UA and chest x-ray ordered 8. Rash to back and arms. Infectious disease service is consulted at this time patient will be admitted alcohol withdrawal protocol initiated Social work services consulted
--- NOTE | 2024-01-25 14:39 | XR ---
EXAMINATION TYPE: XR chest 2V DATE OF EXAM: 01/25/2024 2:08 PM CLINICAL INDICATION:Female, 63 years old with history of febrile; PHH COMPARISON: Chest radiographs from 12/10/2023 TECHNIQUE: XR chest 2V Frontal and lateral views of the chest. FINDINGS: Lungs/Pleura: There is no evidence of pleural effusion, focal consolidation, or pneumothorax. Pulmonary vascularity: Unremarkable. Heart/mediastinum: Cardiomediastinal silhouette is unremarkable. Musculoskeletal: No acute osseous pathology. There is fixation hardware in the lower cervical spine. IMPRESSION: No acute cardiopulmonary disease/process.
[2024-01-25 18:05] LABS: Appearance,Urine Cloudy (Clear); Bacteria,Urine Few /hpf; Bilirubin,Urine Negative (Negative); Blood,Urine Small (Negative); Color,Urine Light Yellow; Glucose,Urine (UA) Negative (Negative); Ketones,Urine 2+ (Negative); Leukocyte Esterase,Urine Large (Negative); Mucus,Urine Rare /hpf; Nitrite,Urine Positive (Negative); PH, Urine 6.5 (5.0-8.0); Protein,Urine 1+ (Negative); RBC,Urine 11 /hpf (0-5); Specific Gravity,Urine 1.014 (1.001-1.035); Squamous Epithelial Cell,Urine 1 /hpf (0-4); Urobilinogen,Urine <2.0 mg/dL (<2.0); WBC,Urine >182 /hpf (0-5)
[2024-01-25] MEDS: hydrALAZINE HCL 25 MG TAB PO SCH (20:17)
[2024-01-25] MEDS: ZINC OXIDE PASTE (Z-GUARD) 1 APPLIC TOPICAL PRN (20:18)
--- NOTE | 2024-01-25 21:55 | P.CONS ---
History of Present Illness - Reason for Consult Consult date: 01/25/24 - History of Present Illness Patient is a 63-year-old female past medical history significant for hypertension osteoarthritis significant history of alcoholism and multiple admission to the hospital recently did have cholecystectomy patient has been brought into the hospital yesterday morning after family patient has been repeatedly calling her as EMS has not been reaching her diaper and the patient has been incontinent of urine and stool due to heavy alcohol abuse patient apparently came to the hospital covered in urine and stool evaluated on presentation to the hospital patient was afebrile she did have a low-grade fever 100.1 F after midnight afebrile this morning patient was not tachycardic hypotensive or hypoxic she did have a white count of 11.5 on admission creatinine 0.38 AST elevated ALT is normal patient did have a serum alcohol level of 410 did have a chest x-ray no acute cardiopulmonary infectious disease was consulted because of the fever patient currently denies having any headache or URI symptoms no chest pain shortness of breath or cough did have some weak abdominal pain nausea no vomiting denies having any diarrhea or constipation some vague urinary symptoms patient did have a rash complaining of some itching no lesions in the mouth or joint swelling she was supposed to follow-up with dermatology in outpatient setting as recommended previously few months ago however the patient mention she was unable to do so as she did the referral from her primary care physician Past Medical History Past Medical History: Hypertension, Osteoarthritis (OA) Additional Past Medical History / Comment(s): FallSeptember 2019 with neck injury/L arm weak/decreased sensation and weakness to L leg-sent to [facility] and had cervical surgery, chronic cervical/L shoulder pain since surgery, chronic low back pain for years, ETOH abuse-pt states she has had withdrawals/shaking/weakness/nausea/one seizure long ago, alcoholic hepatitis, 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 History of Any Multi-Drug Resistant Organisms: None Reported Past Surgical History: AICD, Back Surgery Additional Past Surgical History / Comment(s): Cervical surgery at [facility] d/t injury, colonoscopies/benign polypectomy Past Anesthesia/Blood Transfusion Reactions: No Reported Reaction, Motion Sickness Additional Past Anesthesia/Blood Transfusion Reaction / Comm: PT has clausterphobia. Type of Cardiac Device: AICD Device Placement Date:: unknown Past Psychological History: Anxiety Additional Psychological History / Comment(s): Pt resides with her spouse. Smoking Status: Current some day smoker Past Alcohol Use History: Abuse, Daily, Heavy Additional Past Alcohol Use History / Comment(s): Pt started smoking in 1997 and a pack will last 4 days. Pt drinks on average a pint-2 pints of whiskey per day-she has quit several times and once quit for 5 yrs. Past Drug Use History: None Reported - Past Family History Mother Family Medical History: Cancer Additional Family Medical History / Comment(s): Mother of melanoma Father Family Medical History: No Reported History Additional Family Medical History / Comment(s): Father is healthy Medications and Allergies Home Medications Medication Instructions Recorded Confirmed Type No Known Home Medications 01/24/24 01/24/24 History Allergies Allergy/AdvReac Type Severity Reaction Status Date / Time shellfish derived [Shellfish] Allergy Severe Dyspnea Verified 01/24/24 10:17 iodine Allergy Rash/Hives Verified 01/24/24 10:17 Sulfa (Sulfonamide Allergy Rash/Hives Verified 01/24/24 10:17 Antibiotics) Physical Exam Vitals: Vital Signs Temp Pulse Pulse Resp BP BP Pulse Ox 01/25/24 13:12 98.1 F 92 19 137/73 96 01/25/24 07:46 98.4 F 84 16 157/80 96 01/25/24 02:00 98.9 F 149/83 01/25/24 01:26 100.1 F H 94 18 170/84 96 01/24/24 22:09 98.5 F 90 18 157/83 96 01/24/24 21:52 90 18 01/24/24 20:00 95 18 148/88 95 01/24/24 18:35 95 01/24/24 18:18 98.4 F 95 17 142/80 92 L Intake and Output 01/25/24 01/25/24 01/25/24 06:59 14:59 22:59 Other: Voiding Method Diaper Incontinent # Voids 2 2 # Bowel Movements 1 2 Results CBC & Chem 7: 01/26/24 07:08 01/26/24 07:08 Labs: Abnormal Lab Results - Last 24 Hours (Table) 01/25/24 01/25/24 Range/Units 07:09 07:09 RBC 3.50 L (4.10-5.20) X 10*6/uL Hgb 11.6 L (12.0-15.0) g/dL Hct 34.7 L (37.2-46.3) % MCV 99.1 H (80.0-97.0) FL MCH 33.1 H (27.0-32.0) pg RDW 14.6 H (11.5-14.5) % MPV 9.2 L (9.5-12.2) FL Eosinophils # 0.87 H (0.04-0.35) X 10*3/uL Potassium 3.4 L (3.5-5.5) mmol/L Carbon Dioxide 18.6 L (21.6-31.8) mmol/L Anion Gap 12.40 H (4.00-12.00) mmol/L BUN 4.3 L (9.0-27.0) mg/dL Creatinine 0.4 L (0.6-1.5) mg/dL BUN/Creatinine Ratio 10.75 L (12.00-20.00) Ratio Calcium 7.5 L (8.7-10.3) mg/dL Assessment and Plan Plan: 1patient did have low-grade fever presented hospital with weakness did have an elevated white count and some vague urinary symptoms positive UA likely source of her fever currently no other obvious focus of infection chest x-ray was negative abdominal soft 2-patient with a rash questionably drug related versus rheumatological illness will benefit from biopsy and dermatology evaluation 3-we will start patient Rocephin 2 g daily while waiting for the culture to finalize We will follow on clinical condition and cultures to further adjust medication if needed Thank you for this consultation we will follow the patient along with you Dictation was produced using [employer] dictation software. please excuse any grammatical, word or spelling errors. Time with Patient: Greater than 30
[2024-01-26 10:28] LABS: Blood Urea Nitrogen <3.5 mg/dL (9.0-27.0); Glucose 87 mg/dL (70-110)
[2024-01-26 10:29] LABS: ALT 13 U/L (8-44); AST 21 U/L (13-35); Albumin 3.2 g/dL (3.8-4.9); Alkaline Phosphatase 86 U/L (41-126); BUN/Creat Ratio <8.75 Ratio (12.00-20.00); Calcium 7.6 mg/dL (8.7-10.3); Carbon Dioxide 17.4 mmol/L (21.6-31.8); Chloride 103 mmol/L (96-109); Potassium 2.9 mmol/L (3.5-5.5); Sodium 134 mmol/L (135-145); Total Bilirubin 0.7 mg/dL (0.3-1.2); Total Protein 5.2 g/dL (6.2-8.2)
[2024-01-26 11:31] LABS: Basophils # (A) 0.04 X 10*3/uL (0.00-0.10); Basophils % (A) 0.4 %; Eosinophils # (A) 0.61 X 10*3/uL (0.04-0.35); Eosinophils % (A) 5.9 %; HCT 33.8 % (37.2-46.3); HGB 11.5 g/dL (12.0-15.0); Lymphocytes % (A) 13.6 %; MCH 33.4 pg (27.0-32.0); MCV 98.3 FL (80.0-97.0); Mean Platelet Volume 9.4 FL (9.5-12.2); Monocytes # (A) 0.43 X 10*3/uL (0.20-1.00); Monocytes % (A) 4.2 %; NRBC Per 100 WBC 0 X 10*3/uL (0.00-0.01); Neutrophils # (A) 7.73 X 10*3/uL (1.80-7.70); Neutrophils % (A) 75.3 %; Platelet Count 164 X 10*3/uL (140-440); RBC 3.44 X 10*6/uL (4.10-5.20); RDW 14.3 % (11.5-14.5); WBC 10.27 X 10*3/uL (4.50-10.00)
--- NOTE | 2024-01-26 15:51 | P.PN ---
Subjective Progress Note Date: 01/26/24 Principal diagnosis: Reason for follow-up is fever possible UTI Patient is a 63-year-old female past medical history significant for hypertension osteoarthritis significant history of alcoholism and multiple admission to the hospital recently did have cholecystectomy patient has been brought into the hospital for complaints of not feeling well incontinence of stool and urine did have a low-grade fever prompting this consultation. On today's evaluation that is 01/26/2024 patient did have a low-grade fever 100 F last evening however the patient is afebrile this morning patient is breathing comfortably on room air no chest pain shortness of breath or cough no nausea vomiting or diarrhea reported by the nursing staff. Patient white count is 10.27, creatinine 0.4 cultures currently pending Objective - Vital Signs Vital signs: Vital Signs Temp 98.2 F 01/26/24 07:24 Pulse 87 01/26/24 07:24 Resp 16 01/26/24 07:24 BP 149/79 01/26/24 07:24 Pulse Ox 94 L 01/26/24 07:24 FiO2 Intake & Output 01/25/24 01/26/24 01/26/24 18:59 06:59 18:59 Intake Total 540 Output Total 300 Balance 240 Intake: Oral 540 Output: Urine 300 Other: Voiding Method Diaper Diaper Incontinent Incontinent # Voids 1 1 1 # Bowel Movements 1 1 1 - Exam GENERAL DESCRIPTION: Middle-aged female lying in bed in no distress RESPIRATORY SYSTEM: Unlabored breathing , decreased breath sounds at bases HEART: S1 S2 regular rate and rhythm , ABDOMEN: Soft , no tenderness EXTREMITIES: No edema feet - Labs CBC & Chem 7: 01/26/24 07:08 01/26/24 07:08 Labs: Abnormal Lab Results - Last 24 Hours (Table) 01/25/24 01/26/24 01/26/24 Range/Units 17:22 07:08 07:08 WBC 10.27 H (4.50-10.00) X 10*3/uL RBC 3.44 L (4.10-5.20) X 10*6/uL Hgb 11.5 L (12.0-15.0) g/dL Hct 33.8 L (37.2-46.3) % MCV 98.3 H (80.0-97.0) FL MCH 33.4 H (27.0-32.0) pg MPV 9.4 L (9.5-12.2) FL Immature Gran # 0.06 H (0.00-0.04) X 10*3/uL Neutrophils # 7.73 H (1.80-7.70) X 10*3/uL Eosinophils # 0.61 H (0.04-0.35) X 10*3/uL Sodium 134 L (135-145) mmol/L Potassium 2.9 L (3.5-5.5) mmol/L Carbon Dioxide 17.4 L (21.6-31.8) mmol/L Anion Gap 13.60 H (4.00-12.00) mmol/L BUN <3.5 L (9.0-27.0) mg/dL Creatinine 0.4 L (0.6-1.5) mg/dL BUN/Creatinine Ratio <8.75 L (12.00-20.00) Ratio Calcium 7.6 L (8.7-10.3) mg/dL Total Protein 5.2 L (6.2-8.2) g/dL Albumin 3.2 L (3.8-4.9) g/dL Urine Appearance Cloudy H (Clear) Urine Protein 1+ H (Negative) Urine Ketones 2+ H (Negative) Urine Blood Small H (Negative) Urine Nitrite Positive H (Negative) Ur Leukocyte Esterase Large H (Negative) Urine RBC 11 H (0-5) /hpf Urine WBC >182 H (0-5) /hpf Urine Bacteria Few H (None) /hpf Urine Mucus Rare H (None) /hpf Assessment and Plan (1) Fever Current Visit: Yes Status: Acute Code(s): R50.9 - FEVER, UNSPECIFIED SNOMED Code(s): 957657349 (2) Rash Current Visit: No Status: Acute Code(s): R21 - RASH AND OTHER NONSPECIFIC SKIN ERUPTION SNOMED Code(s): 449918348 (3) Urinary tract infection Current Visit: No Status: Acute Code(s): N39.0 - URINARY TRACT INFECTION, SITE NOT SPECIFIED SNOMED Code(s): 41450902 Plan: 1patient did have low-grade fever presented hospital with weakness did have an elevated white count and some vague urinary symptoms positive UA likely source of her fever currently no other obvious focus of infection chest x-ray was negative abdominal soft 2-patient with a rash questionably drug related versus rheumatological illness will benefit from biopsy and dermatology evaluation 3-patient to continue with Rocephin 2 g daily while waiting for the culture to finalize Dictation was produced using [employer] dictation software. please excuse any grammatical, word or spelling errors. Time with Patient: Less than 30
--- NOTE | 2024-01-26 18:13 | P.PN ---
Subjective Progress Note Date: 01/26/24 This is a 63-year-old female patient who reports that EMS was called due to patient's weakness. Patient has a known past medical history of EtOH but she states she usually drinks a pint of whiskey daily. Additional medical history includes hypertension and osteoarthritis. Patient also has AICD and history of back surgery. Lab work revealing serum alcohol for 410, potassium 5.6 creatin 0.38 bun 7 sodium 145. Current vital signs temp 97.6, heart rate 90, respiratory rate 17, blood pressure 105/61 with pulse ox 96% on room air at this time patient will be admitted alcohol withdrawal protocol has been ordered. Social work services consulted for possible rehab. Patient denies chest pain or shortn ess breath. Patient denies nausea vomiting or diarrhea. Patient denies any urinary burning Or frequency On 01/25/2024 patient's alert and oriented 3. Patient complaining of tremors. Patient remains on oncology protocol. Also complaining of ongoing rash this has been a previous issue for patient. Patient had temperature of 100.1 this a.m. Will consult infectious disease. chest x-rayIn urinary analysis ordered. Patient denies chest pain or shortness breath. Patient denies nausea vomiting or diarrhea. Patient denies any urinary burning or frequency on 01/26/2024 patient was seen and examined on the medical floor she is alert and oriented 3 in no apparent distress she is complaining of skin rash was itching she is complaining of anxiety otherwise she denies any complaints there is no fever or chills no headache or dizziness no chest pain no shortness of breath no cough no nausea or vomiting no abdominal pain no diarrhea and no urinary symptoms Objective - Vital Signs Vital signs: Vital Signs Temp 98.2 F 01/26/24 07:24 Pulse 87 01/26/24 07:24 Resp 16 01/26/24 07:24 BP 149/79 01/26/24 07:24 Pulse Ox 94 L 01/26/24 07:24 FiO2 Intake & Output 01/25/24 01/26/24 01/26/24 18:59 06:59 18:59 Intake Total 540 Output Total 300 Balance 240 Intake: Oral 540 Output: Urine 300 Other: Voiding Method Diaper Diaper Incontinent Incontinent # Voids 1 1 1 # Bowel Movements 1 1 1 - Exam Head normocephalic Neck supple Lungs clear to auscultation bilaterally no wheezing or crackles Heart regular rate and rhythm S1-S2, no rub or gallop Abdomen is soft nontender nondistended positive bowel sounds no hepatosplenomegaly Extremities no edema Neuro alert and orientated to 3 - Labs CBC & Chem 7: 01/26/24 07:08 01/26/24 07:08 Labs: Abnormal Lab Results - Last 24 Hours (Table) 01/25/24 01/25/24 01/25/24 Range/Units 07:09 07:09 17:22 RBC 3.50 L (4.10-5.20) X 10*6/uL Hgb 11.6 L (12.0-15.0) g/dL Hct 34.7 L (37.2-46.3) % MCV 99.1 H (80.0-97.0) FL MCH 33.1 H (27.0-32.0) pg RDW 14.6 H (11.5-14.5) % MPV 9.2 L (9.5-12.2) FL Eosinophils # 0.87 H (0.04-0.35) X 10*3/uL Potassium 3.4 L (3.5-5.5) mmol/L Carbon Dioxide 18.6 L (21.6-31.8) mmol/L Anion Gap 12.40 H (4.00-12.00) mmol/L BUN 4.3 L (9.0-27.0) mg/dL Creatinine 0.4 L (0.6-1.5) mg/dL BUN/Creatinine Ratio 10.75 L (12.00-20.00) Ratio Calcium 7.5 L (8.7-10.3) mg/dL Urine Appearance Cloudy H (Clear) Urine Protein 1+ H (Negative) Urine Ketones 2+ H (Negative) Urine Blood Small H (Negative) Urine Nitrite Positive H (Negative) Ur Leukocyte Esterase Large H (Negative) Urine RBC 11 H (0-5) /hpf Urine WBC >182 H (0-5) /hpf Urine Bacteria Few H (None) /hpf Urine Mucus Rare H (None) /hpf Assessment and Plan Assessment: 1. Alcohol intoxication 2. History of alcohol abuse and withdrawal 3. History of cholecystitis patient underwent lap ángela on 01/09/2024 4. Ongoing nicotine dependence 5. Essential hypertension 6. History of back pain 7. Febrile. UA and chest x-ray ordered 8. Rash to back and arms. Infectious disease service is consulted at this time patient will be admitted alcohol withdrawal protocol initiated Social work services consulted
[2024-01-27] MEDS ORDERED: Potassium Replacement Protocol 1 EACH MISC MISCELLANE PRN (11:58)
[2024-01-27] MEDS: POTASSIUM CHLORIDE ER 20 MEQ TAB.ER PO SCH ×2 (14:55→21:45)
--- NOTE | 2024-01-27 15:33 | P.PN ---
Subjective Progress Note Date: 01/27/24 This is a 63-year-old female patient who reports that EMS was called due to patient's weakness. Patient has a known past medical history of EtOH but she states she usually drinks a pint of whiskey daily. Additional medical history includes hypertension and osteoarthritis. Patient also has AICD and history of back surgery. Lab work revealing serum alcohol for 410, potassium 5.6 creatin 0.38 bun 7 sodium 145. Current vital signs temp 97.6, heart rate 90, respiratory rate 17, blood pressure 105/61 with pulse ox 96% on room air at this time patient will be admitted alcohol withdrawal protocol has been ordered. Social work services consulted for possible rehab. Patient denies chest pain or shortn ess breath. Patient denies nausea vomiting or diarrhea. Patient denies any urinary burning Or frequency On 01/25/2024 patient's alert and oriented 3. Patient complaining of tremors. Patient remains on oncology protocol. Also complaining of ongoing rash this has been a previous issue for patient. Patient had temperature of 100.1 this a.m. Will consult infectious disease. chest x-rayIn urinary analysis ordered. Patient denies chest pain or shortness breath. Patient denies nausea vomiting or diarrhea. Patient denies any urinary burning or frequency on 01/26/2024 patient was seen and examined on the medical floor she is alert and oriented 3 in no apparent distress she is complaining of skin rash was itching she is complaining of anxiety otherwise she denies any complaints there is no fever or chills no headache or dizziness no chest pain no shortness of breath no cough no nausea or vomiting no abdominal pain no diarrhea and no urinary symptoms on 01/27/2024 patient was seen and examined on the medical floor she is alert and oriented 3 in no apparent distress she is complaining of skin rash was itching she is complaining of anxiety otherwise she denies any complaints there is no fever or chills no headache or dizziness no chest pain no shortness of breath no cough no nausea or vomiting no abdominal pain no diarrhea and no urinary symptoms, patient has hypokalemia, and is being corrected, awaiting input from psychiatry, possible discharge tomorrow Objective - Vital Signs Vital signs: Vital Signs Temp 98.4 F 01/27/24 12:28 Pulse 92 01/27/24 12:28 Resp 16 05/17/24 12:28 BP 130/75 01/27/24 12:28 Pulse Ox 96 01/27/24 12:28 FiO2 Intake & Output 01/26/24 01/27/24 01/27/24 18:59 06:59 18:59 Intake Total 900 Balance 900 Intake: Intake, IV Titration 900 Amount Sodium Chloride 0.9% 1, 900 000 ml @ 75 mls/hr IV . [id number] [facility] Rx#:[id number] Other: Voiding Method Diaper Diaper Incontinent Incontinent # Voids 2 3 # Bowel Movements 1 2 - Exam Head normocephalic Neck supple Lungs clear to auscultation bilaterally no wheezing or crackles Heart regular rate and rhythm S1-S2, no rub or gallop Abdomen is soft nontender nondistended positive bowel sounds no hepatosplenomegaly Extremities no edema Neuro alert and orientated to 3 - Labs CBC & Chem 7: 01/26/24 07:08 01/27/24 13:13 Labs: Abnormal Lab Results - Last 24 Hours (Table) 01/27/24 Range/Units 13:13 Potassium 3.0 L (3.5-5.1) mmol/L Assessment and Plan Assessment: 1. Alcohol intoxication 2. History of alcohol abuse and withdrawal 3. History of cholecystitis patient underwent lap ángela on 01/09/2024 4. Ongoing nicotine dependence 5. Essential hypertension 6. History of back pain 7. Febrile. UA and chest x-ray ordered 8. Rash to back and arms. Infectious disease service is consulted at this time patient will be admitted alcohol withdrawal protocol initiated Social work services consulted
--- NOTE | 2024-01-27 16:28 | P.PN ---
Subjective Progress Note Date: 01/27/24 Principal diagnosis: Reason for follow-up is fever possible UTI Patient is a 63-year-old female past medical history significant for hypertension osteoarthritis significant history of alcoholism and multiple admission to the hospital recently did have cholecystectomy patient has been brought into the hospital for complaints of not feeling well incontinence of stool and urine did have a low-grade fever prompting this consultation. On today's evaluation that is 01/27/2024, Patient is afebrile patient is currently on room air and denies having any shortness of breath, the patient denies any chest pain or cough, the patient denies any nausea vomiting did not have any abdominal pain and no diarrhea, mention feeling slightly better. Patient did have potassium of 3.0 no CBC was done today Objective - Vital Signs Vital signs: Vital Signs Temp 98.3 F 01/27/24 07:56 Pulse 87 01/27/24 07:56 Resp 16 01/27/24 07:56 BP 139/78 01/27/24 07:56 Pulse Ox 98 01/27/24 07:56 FiO2 Intake & Output 01/26/24 01/27/24 01/27/24 18:59 06:59 18:59 Intake Total 900 Balance 900 Intake: Intake, IV Titration 900 Amount Sodium Chloride 0.9% 1, 900 000 ml @ 75 mls/hr IV . [id number] [facility] Rx#:[id number] Other: Voiding Method Diaper Diaper Incontinent Incontinent # Voids 2 3 # Bowel Movements 1 2 - Exam GENERAL DESCRIPTION: Middle-aged female lying in bed in no distress RESPIRATORY SYSTEM: Unlabored breathing , decreased breath sounds at bases HEART: S1 S2 regular rate and rhythm , ABDOMEN: Soft , no tenderness EXTREMITIES: No edema feet - Labs CBC & Chem 7: 01/26/24 07:08 01/27/24 13:13 Assessment and Plan (1) Fever Current Visit: Yes Status: Acute Code(s): R50.9 - FEVER, UNSPECIFIED SNOMED Code(s): 163427436 (2) Rash Current Visit: No Status: Acute Code(s): R21 - RASH AND OTHER NONSPECIFIC SKIN ERUPTION SNOMED Code(s): 861852700 (3) Urinary tract infection Current Visit: No Status: Acute Code(s): N39.0 - URINARY TRACT INFECTION, SITE NOT SPECIFIED SNOMED Code(s): 64765344 Plan: 1patient did have low-grade fever presented hospital with weakness did have an elevated white count and some vague urinary symptoms positive UA likely source of her fever currently no other obvious focus of infection chest x-ray was negative abdominal soft 2-patient with a rash questionably drug related versus rheumatological illness will benefit from biopsy and dermatology evaluation 3-patient did have resolution of the fever continue with Rocephin we will try to get Urine culture Dictation was produced using [employer] dictation software. please excuse any grammatical, word or spelling errors. Time with Patient: Less than 30
[2024-01-27] MEDS: ENOXAPARIN 40 MG/0.4 ML SYRINGE SQ SCH (18:36)
[2024-01-27] MEDS: PARoxetine 10 MG TAB PO SCH (21:45)
--- NOTE | 2024-01-27 22:26 | P.CN ---
Psychiatric Consult - . Consult date: 01/27/24 Consult:: 01/27/24 22:25 CONSULTATION Reason for consult; Evaluation and management of Anxiety. Identifying Data: The patient is 64 years old, , wf. , who lives in [facility] in a house with her . History of present illness: The patient presented to the emergency department brought by EMS because of weakness. Her blood alcohol level was 410. After initial work-up, she was transferred to medical lambert for further management. The consultation was generated for anxiety. During this evaluation, the patient requested for Ativan because it works well and prevents from drinking. The patient was gently redirected by informing her the pros and cons of this medication. She was offered other potential agents for treatment of anxiety. The benefits and side effects were explained. The patient opted for Paxil. She was explained the side effects, risks and benefits of this medication. The patient noted that she has struggled with anxiety all her life. She never sought through psychiatry. She has no past history of out-patient or inpatient treatment. She no h/o SI or HI ideation or behavior. The patient denied being Depressed. She denied any symptoms consistent with psychosis. History of past psychiatric illness: As stated above. Past medical history: HTN, Osteoarthritis. Substance abuse history: Alcohol dependence. Family history of psychiatric disorder: Patients maternal uncle committed suicide. No other history of psychiatric disorder MSE: The patient was alert and attentive. Orientation X3. Patient was pleasant and cooperative. Psychomotor activity was normal Speech was normal tone, quality, and quantity. Mood: Anxious. Affect: Consistent with mood. SI or HI- None Thought content- normal Thought process- normal Perceptual disturbance- none Cognition- Intact Judgement and Insight. Fair. IMP: Possible General Anxiety Disorder. Alcohol Dependence REC: Paxil 5 mg at bedtime. Continue Remeron. Zoloft will need to be cross titrated, Decrease Zoloft to 25 mg for three day and then stop. The Paxil to be increased to 10 mg after 3 days. Hydroxyzine prn is fine. The dose will need to be titrated to achieve an optimal dose. The can be done as an out-pt. The patient can be discharged to out-pt after medical stabilization. She will need out-pt appointment with a mental health care provider. To further monitor medication and MS. Eric Terry MD Psychiatry
[2024-01-28 07:56] VITALS: RESP 15
[2024-01-28] MEDS: POTASSIUM CHLORIDE ER 20 MEQ TAB.ER PO SCH (08:50)
[2024-01-28] MEDS: hydrOXYzine HCL 25 MG TAB PO PRN (08:57)
[2024-01-28 09:37] LABS: Basophils # (A) 0.03 X 10*3/uL (0.00-0.10); Basophils % (A) 0.5 %; Eosinophils # (A) 0.38 X 10*3/uL (0.04-0.35); Eosinophils % (A) 6.5 %; HCT 34.5 % (37.2-46.3); HGB 11.4 g/dL (12.0-15.0); Lymphocytes # (A) 1.29 X 10*3/uL (0.90-5.00); MCH 33.1 pg (27.0-32.0); MCV 100.3 FL (80.0-97.0); Mean Platelet Volume 9.9 FL (9.5-12.2); Monocytes # (A) 0.74 X 10*3/uL (0.20-1.00); Monocytes % (A) 12.6 %; NRBC Per 100 WBC 0 X 10*3/uL (0.00-0.01); Neutrophils # (A) 3.39 X 10*3/uL (1.80-7.70); Neutrophils % (A) 57.7 %; Platelet Count 129 X 10*3/uL (140-440); RBC 3.44 X 10*6/uL (4.10-5.20); RDW 14.6 % (11.5-14.5); WBC 5.87 X 10*3/uL (4.50-10.00)
[2024-01-28 10:17] LABS: ALT 13 U/L (8-44); AST 27 U/L (13-35); Albumin 3.3 g/dL (3.8-4.9); Albumin/Globulin Ratio 1.57 Ratio (1.60-3.17); Alkaline Phosphatase 64 U/L (41-126); BUN/Creat Ratio 14.33 Ratio (12.00-20.00); Blood Urea Nitrogen 4.3 mg/dL (9.0-27.0); Carbon Dioxide 18.6 mmol/L (21.6-31.8); Chloride 106 mmol/L (96-109); Globulin 2.1 g/dL (1.6-3.3); Glucose 94 mg/dL (70-110); Potassium 3.6 mmol/L (3.5-5.5); Sodium 136 mmol/L (135-145); Total Bilirubin 0.4 mg/dL (0.3-1.2); Total Protein 5.4 g/dL (6.2-8.2)
--- NOTE | 2024-01-28 13:53 | P.DS ---
Providers Date of admission: 01/24/24 03:08 Expected date of discharge: 01/28/24 Attending physician: Aileen Torres Consults: 01/25/24 10:44 Consult Physician Routine Consulting Provider: Leo Begum Consult Reason/Comments: rash, fever Do you want consulting provider notified?: Yes 01/26/24 18:13 Consult Physician Routine Consulting Provider: Danny Rodriguez Consult Reason/Comments: anxiety disorder, alcohol intoxication Do you want consulting provider notified?: Yes Primary care physician: Aileen Melissa [facility] Course: Diagnosis on discharge: 1. Alcohol intoxication 2. History of alcohol abuse and withdrawal 3. History of cholecystitis patient underwent lap ángela on 01/09/2024 4. Ongoing nicotine dependence 5. Essential hypertension 6. History of back pain 7. Febrile. UA and chest x-ray ordered 8. Rash to back and arms. Infectious disease service is consulted Hospital course: This is a 63-year-old female patient who reports that EMS was called due to patient's weakness. Patient has a known past medical history of EtOH but she states she usually drinks a pint of whiskey daily. Additional medical history includes hypertension and osteoarthritis. Patient also has AICD and history of back surgery. Lab work revealing serum alcohol for 410, potassium 5.6 creatin 0.38 bun 7 sodium 145. Current vital signs temp 97.6, heart rate 90, respiratory rate 17, blood pressure 105/61 with pulse ox 96% on room air at this time patient will be admitted alcohol withdrawal protocol has been ordered. Social work services consulted for possible rehab. Patient denies chest pain or shortness breath. Patient denies nausea vomiting or diarrhea. Patient denies any urinary burning Or frequency On 01/25/2024 patient's alert and oriented 3. Patient complaining of tremors. Patient remains on oncology protocol. Also complaining of ongoing rash this has been a previous issue for patient. Patient had temperature of 100.1 this a.m. Will consult infectious disease. chest x-rayIn urinary analysis ordered. Patient denies chest pain or shortness breath. Patient denies nausea vomiting or diarrhea. Patient denies any urinary burning or frequency on 01/26/2024 patient was seen and examined on the medical floor she is alert and oriented 3 in no apparent distress she is complaining of skin rash was itching she is complaining of anxiety otherwise she denies any complaints there is no fever or chills no headache or dizziness no chest pain no shortness of breath no cough no nausea or vomiting no abdominal pain no diarrhea and no urinary symptoms on 01/27/2024 patient was seen and examined on the medical floor she is alert and oriented 3 in no apparent distress she is complaining of skin rash was itching she is complaining of anxiety otherwise she denies any complaints there is no fever or chills no headache or dizziness no chest pain no shortness of breath no cough no nausea or vomiting no abdominal pain no diarrhea and no urinary symptoms, patient has hypokalemia, and is being corrected, awaiting input from psychiatry, possible discharge tomorrow on 01/28/2024 patient was seen and examined on the medical floor she is alert and oriented 3 in no apparent distress there is no fever or chills no headache or dizziness no chest pain no shortness of breath no cough no nausea or vomiting no abdominal pain no diarrhea and no urinary symptoms. Patient can be discharged home today, she was started on Paxil and Atarax for anxiety, she was counseled in length in regards to alcohol abstinence. She will be followed in our office in 2-3 days, will arrange for appointment with dermatology. Patient Condition at Discharge: Stable Plan - Discharge Summary Discharge Rx Participant: No New Discharge Prescriptions: New hydrALAZINE HCL [Apresoline] 25 mg PO BID 60 Days #30 tab Thiamine [Vitamin B-1] 100 mg PO DAILY 30 Days #30 tab Cholecalciferol [Vitamin D3 (25 Mcg = 1000 Iu)] 50 mcg PO DAILY 30 Days #30 tab hydrOXYzine HCL [Atarax] 25 mg PO TID PRN 90 Days #30 tab PRN Reason: Itching Magnesium Oxide [Mag-Ox] 400 mg PO DAILY 30 Days #30 tab Multivitamins, Thera [Multivitamin (formulary)] 1 each PO DAILY 30 Days #30 tab Folic Acid-Vit B Complex-Vit C [Nephrocaps] 1 each PO DAILY 30 Days #30 cap PARoxetine [Paxil] 10 mg PO HS 30 Days #30 tab Mirtazapine [Remeron] 15 mg PO HS 30 Days #30 tab cefUROXime axetiL [Ceftin] 500 mg PO BID 3 Days #6 tab Discharge Medication List Cholecalciferol [Vitamin D3 (25 Mcg = 1000 Iu)] 50 mcg PO DAILY 30 Days #30 tab 01/28/24 [Rx] Folic Acid-Vit B Complex-Vit C [Nephrocaps] 1 each PO DAILY 30 Days #30 cap 01/28/24 [Rx] Magnesium Oxide [Mag-Ox] 400 mg PO DAILY 30 Days #30 tab 01/28/24 [Rx] Mirtazapine [Remeron] 15 mg PO HS 30 Days #30 tab 01/28/24 [Rx] Multivitamins, Thera [Multivitamin (formulary)] 1 each PO DAILY 30 Days #30 tab 01/28/24 [Rx] PARoxetine [Paxil] 10 mg PO HS 30 Days #30 tab 01/28/24 [Rx] Thiamine [Vitamin B-1] 100 mg PO DAILY 30 Days #30 tab 01/28/24 [Rx] cefUROXime axetiL [Ceftin] 500 mg PO BID 3 Days #6 tab 01/28/24 [Rx] hydrALAZINE HCL [Apresoline] 25 mg PO BID 60 Days #30 tab 01/28/24 [Rx] hydrOXYzine HCL [Atarax] 25 mg PO TID PRN 90 Days #30 tab 01/28/24 [Rx] Follow up Appointment(s)/Referral(s): Aileen Torres MD [Primary Care Provider] - 1-2 days Patient Instructions/Handouts: Urinary Tract Infection in Women (DC), Alcohol Withdrawal (DC) Discharge/Stand Alone Forms: AA Meetings [place], Community Resources, In Substance Abuse Facilities
[2024-01-28 15:16] VITALS: BP 133/75; PULSE 85; TEMP 98.4
== END 2024-01-28 17:02 | disposition home or self-care (01) | DRG 897 ==
LOC: EC 23:44 → 5NMEDONC 01-24 03:07 → OBSVTOIN 01-24 03:08 → 5NMEDONC 01-24 18:36
PROVIDERS: ADMIT Internal Medicine; ATTEND Internal Medicine
PROC: HZ2ZZZZ Detoxification Services for Substance Abuse Treatment (ICD-10-PCS; principal; 2024-01-24)
DX: F10.239 Alcohol dependence with withdrawal, unspecified (principal); N39.0 Urinary tract infection, site not specified; F10.229 Alcohol dependence with intoxication, unspecified; F17.200 Nicotine dependence, unspecified, uncomplicated; F41.9 Anxiety disorder, unspecified; Z91.013 Allergy to seafood; Z88.2 Allergy status to sulfonamides; Z91.041 Radiographic dye allergy status; Y90.8 Blood alcohol level of 240 mg/100 ml or more; R32 Unspecified urinary incontinence; Z79.899 Other long term (current) drug therapy; Z87.19 Personal history of other diseases of the digestive system; R21 Rash and other nonspecific skin eruption; Z86.010 Personal history of colon polyps; G89.29 Other chronic pain; B95.2 Enterococcus as the cause of diseases classified elsewhere; M54.9 Dorsalgia, unspecified; Z90.49 Acquired absence of other specified parts of digestive tract; M19.90 Unspecified osteoarthritis, unspecified site; Z95.810 Presence of automatic (implantable) cardiac defibrillator
CPT/HCPCS: 36415; 71046; 80048; 80053; 80320; 81001; 83690; 83735; 84132; 85025; 87077; 87086; 87186; 96361; 96372; 96374; 96376; 99285

== ENCOUNTER 2024-02-02 02:39 | Observation (INO) | payer BC, OTHER ==
--- NOTE | 2024-02-02 03:50 | ED ---
General Adult HPI - General Chief complaint: Nausea/Vomiting/Diarrhea Stated complaint: Weakness Time Seen by Provider: 02/02/24 02:45 Source: EMS Mode of arrival: EMS - History of Present Illness Initial comments: Ana Paula is a 63-year-old female with a history of alcohol abuse drinks 1 pint of liquor daily. Patient is well-known to the ER and at this hospital due to recurrent admissions. Patient presents today with report of 2 days of diarrhea and feeling generalized weakness and unwell. EMS reports that the patient was sitting on her couch covered in her own stool unable to walk without assistance. - Related Data Previous Rx's Medication Instructions Recorded Cholecalciferol [Vitamin D3 (25 50 mcg PO DAILY 30 Days #30 tab 01/28/24 Mcg = 1000 Iu)] Folic Acid-Vit B Complex-Vit C 1 each PO DAILY 30 Days #30 cap 01/28/24 [Nephrocaps] Magnesium Oxide [Mag-Ox] 400 mg PO DAILY 30 Days #30 tab 01/28/24 Mirtazapine [Remeron] 15 mg PO HS 30 Days #30 tab 01/28/24 Multivitamins, Thera [Multivitamin 1 each PO DAILY 30 Days #30 tab 01/28/24 (formulary)] PARoxetine [Paxil] 10 mg PO HS 30 Days #30 tab 01/28/24 Thiamine [Vitamin B-1] 100 mg PO DAILY 30 Days #30 tab 01/28/24 cefUROXime axetiL [Ceftin] 500 mg PO BID 3 Days #6 tab 01/28/24 hydrALAZINE HCL [Apresoline] 25 mg PO BID 60 Days #30 tab 01/28/24 hydrOXYzine HCL [Atarax] 25 mg PO TID PRN 90 Days #30 tab 01/28/24 Allergies Allergy/AdvReac Type Severity Reaction Status Date / Time shellfish derived [Shellfish] Allergy Severe Dyspnea Verified 02/02/24 02:56 iodine Allergy Rash/Hives Verified 02/02/24 02:56 Sulfa (Sulfonamide Allergy Rash/Hives Verified 02/02/24 02:56 Antibiotics) Review of Systems ROS Statement: Those systems with pertinent positive or pertinent negative responses have been documented in the HPI. ROS Other: All systems not noted in ROS Statement are negative. 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 History of Any Multi-Drug Resistant Organisms: None Reported Past Surgical History: AICD, Back Surgery Additional Past Surgical History / Comment(s): Cervical surgery at [facility] d/t injury, colonoscopies/benign polypectomy Past Anesthesia/Blood Transfusion Reactions: No Reported Reaction, Motion Sickness Additional Past Anesthesia/Blood Transfusion Reaction / Comment(s): PT has clausterphobia. Type of Cardiac Device: AICD Device Placement Date:: unknown Past Psychological History: Anxiety Smoking Status: Current some day smoker Past Alcohol Use History: Abuse, Daily, Heavy Past Drug Use History: None Reported - Past Family History Mother Family Medical History: Cancer Additional Family Medical History / Comment(s): Mother of melanoma Father Family Medical History: No Reported History Additional Family Medical History / Comment(s): Father is healthy General Exam - General Exam Comments Initial Comments: Physical Exam GENERAL: Chronically ill-appearing female no acute distress Patient has feces over her arms and legs HENT: Normocephalic, Atraumatic. Dermatitis noted on the face with swelling of the eyelids EYES: PERRL, EOMI PULMONARY: Unlabored respirations. CARDIOVASCULAR: RRR ABDOMEN: Non-distended SKIN: Dermatitis with erythema and excoriations noted on the chest and arms : Deferred NEUROLOGIC: Alert and oriented MUSCULOSKELETAL: Moving all extremities with no apparent injury PSYCHIATRIC: No SI/HI Course Vital Signs 02/02/24 02/02/24 02:49 05:58 Temperature 98.7 F Pulse Rate 87 82 Respiratory 18 18 Rate Blood Pressure 114/86 110/69 O2 Sat by Pulse 100 98 Oximetry Medical Decision Making - Medical Decision Making Was pt. sent in by a medical professional or institution (, PA, TREATING ENGINEER HELPER, urgent care, hospital, or snf...) When possible be specific @ -No Did you speak to anyone other than the patient for history (EMS, parent, family, police, friend...)? What history was obtained from this source @ -EMS Did you review nursing and triage notes (agree or disagree)? Why? @ -I reviewed and agree with nursing and triage notes Were old charts reviewed (outside hosp., previous admission, EMS record, old EKG, old radiological studies, urgent care reports/EKG's, snf records)? Report findings @ -Previous admission notes were reviewed Differential Diagnosis (chest pain, altered mental status, abdominal pain women, abdominal pain men, vaginal bleeding, weakness, fever, dyspnea, syncope, headache, dizziness, GI bleed, back pain, seizure, CVA, palpatations, mental health)? @ -Differential includes alcohol abuse, electrolyte abnormality, diarrhea, dehydration, gastroenteritis, infectious gastroenteritis EKG interpreted by me (3pts min.). @ -As above X-rays interpreted by me (1pt min.). @ -None done CT interpreted by me (1pt min.). @ -None done U/S interpreted by me (1pt. min.). @ -None done What testing was considered but not performed or refused? (CT, X-rays, U/S, labs)? Why? @ -None What meds were considered but not given or refused? Why? @ -Ativan was considered to prevent alcohol withdrawal but held due to patient's elevated alcohol level Did you discuss the management of the patient with other professionals (professionals i.e. , PA, TREATING ENGINEER HELPER, lab, RT, psych nurse, social problems specialist, mds rn, teacher, special technical operations officer, medical case worker)? Give summary @ -No Was smoking cessation discussed for >3mins.? @ -No Was critical care preformed (if so, how long)? @ -No Were there social determinants of health that impacted care today? How? (Homelessness, low income, unemployed, alcoholism, drug addiction, transp ortation, low edu. Level, literacy, decrease access to med. care, fpc, rehab)? @ -Alcoholism Was there de-escalation of care discussed even if they declined (Discuss DNR or withdrawal of care, Hospice)? DNR status @ -No What co-morbidities impacted this encounter? (DM, HTN, Smoking, COPD, CAD, Ca ncer, CVA, ARF, Chemo, Hep., AIDS, mental health diagnosis, sleep apnea, morbid obesity)? @ -None Was patient admitted / discharged? Hospital course, mention meds given and route, prescriptions, significant lab abnormalities, going to OR and other pertinent info. @ -Admit Patient was seen and evaluated. Patient is covered in her own feces she is intoxicated she is unable to care for herself. Labs are obtained she is hypomagnesemic and hypocalcemic. IV magnesium was replaced. Patient will be placed in observation due to alcohol intoxication and consult to social work due to concern about patient's safety at home and her inability to care for herself. Undiagnosed new problem with uncertain prognosis? @ -No Drug Therapy requiring intensive monitoring for toxicity (Heparin, Nitro, Insu kristin, Cardizem)? @ -No Were any procedures done? @ -No Diagnosis/symptom? @ -Diarrhea, hypomagnesemia Acute, or Chronic, or Acute on Chronic? @ -Acute Uncomplicated (without systemic symptoms) or Complicated (systemic symptoms)? @ -Default Side effects of treatment? @ -No Exacerbation, Progression, or Severe Exacerbation? @ -No Poses a threat to life or bodily function? How? (Chest pain, USA, NM, pneumonia, PE, COPD, DKA, ARF, appy, cholecystitis, CVA, Diverticulitis, Homicidal, Suicidal, threat to staff... and all critical care pts) @ -No Diagnosis/symptom? @ -Alcohol intoxication Acute, or Chronic, or Acute on Chronic? @ -Acute on chronic Uncomplicated (without systemic symptoms) or Complicated (systemic symptoms)? @ -Placated Side effects of treatment? @ -None Exacerbation, Progression, or Severe Exacerbation] @ -Exacerbation Poses a threat to life or bodily function? @ -Yes, has resulted in transaminitis and generalized malnutrition - Lab Data Result diagrams: 02/02/24 04:30 02/02/24 04:30 Lab Results 02/02/24 02/02/24 Range/Units 04:30 04:30 WBC 9.3 (3.8-10.6) k/uL RBC 4.32 (3.80-5.40) m/uL Hgb 14.4 (11.4-16.0) gm/dL Hct 44.4 (34.0-46.0) % MCV 102.8 H (80.0-100.0) fL MCH 33.4 (25.0-35.0) pg MCHC 32.5 (31.0-37.0) g/dL RDW 14.5 (11.5-15.5) % Plt Count 273 (150-450) k/uL MPV 7.5 Neutrophils % 50 % Lymphocytes % 35 % Monocytes % 5 % Eosinophils % 7 % Basophils % 1 % Neutrophils # 4.7 (1.3-7.7) k/uL Lymphocytes # 3.3 (1.0-4.8) k/uL Monocytes # 0.4 (0-1.0) k/uL Eosinophils # 0.7 (0-0.7) k/uL Basophils # 0.1 (0-0.2) k/uL Macrocytosis Slight Sodium 141 (137-145) mmol/L Potassium 4.2 (3.5-5.1) mmol/L Chloride 106 (98-107) mmol/L Carbon Dioxide 23 (22-30) mmol/L Anion Gap 12 mmol/L BUN 10 (7-17) mg/dL Creatinine 0.44 L (0.52-1.04) mg/dL Est GFR (CKD-EPI)AfAm >90 (>60 ml/min/1.73 sqM) Est GFR (CKD-EPI)NonAf >90 (>60 ml/min/1.73 sqM) Glucose 87 (74-99) mg/dL Calcium 8.2 L (8.4-10.2) mg/dL Magnesium 1.5 L (1.6-2.3) mg/dL Total Bilirubin 0.4 (0.2-1.3) mg/dL AST 85 H (14-36) U/L ALT 79 H (4-34) U/L Alkaline Phosphatase 190 H (38-126) U/L Total Protein 6.2 L (6.3-8.2) g/dL Albumin 3.4 L (3.5-5.0) g/dL Lipase 50 (23-300) U/L Serum Alcohol 254 H* mg/dL Disposition Clinical Impression: Alcohol intoxication, Hypomagnesemia Disposition: ADMITTED IP TO THIS [facility] Condition: Serious
[2024-02-02 04:45] LABS: Basophils # (A) 0.1 k/uL (0-0.2); Basophils % (A) 1 %; Eosinophils # (A) 0.7 k/uL (0-0.7); Eosinophils % (A) 7 %; HCT 44.4 % (34.0-46.0); HGB 14.4 gm/dL (11.4-16.0); Lymphocytes # (A) 3.3 k/uL (1.0-4.8); Lymphocytes % (A) 35 %; MCH 33.4 pg (25.0-35.0); MCHC 32.5 g/dL (31.0-37.0); MCV 102.8 fL (80.0-100.0); Macrocytosis Slight; Mean Platelet Volume 7.5; Monocytes # (A) 0.4 k/uL (0-1.0); Monocytes % (A) 5 %; Neutrophils # (A) 4.7 k/uL (1.3-7.7); Neutrophils % (A) 50 %; Platelet Count 273 k/uL (150-450); RBC 4.32 m/uL (3.80-5.40); RDW 14.5 % (11.5-15.5); WBC 9.3 k/uL (3.8-10.6)
[2024-02-02 04:56] LABS: ALT 79 U/L (4-34); AST 85 U/L (14-36); African American GFR (CKD) >90 (>60 ml/min/1.73 sqM); Albumin 3.4 g/dL (3.5-5.0); Alkaline Phosphatase 190 U/L (38-126); Anion Gap 12 mmol/L; Blood Urea Nitrogen 10 mg/dL (7-17); Calcium 8.2 mg/dL (8.4-10.2); Carbon Dioxide 23 mmol/L (22-30); Chloride 106 mmol/L (98-107); Glucose 87 mg/dL (74-99); Lipase 50 U/L (23-300); Magnesium 1.5 mg/dL (1.6-2.3); Non-African American GFR(CKD) >90 (>60 ml/min/1.73 sqM); Potassium 4.2 mmol/L (3.5-5.1); Sodium 141 mmol/L (137-145); Total Bilirubin 0.4 mg/dL (0.2-1.3); Total Protein 6.2 g/dL (6.3-8.2)
[2024-02-02 05:00] LABS: Alcohol 254 mg/dL
[2024-02-02] MEDS ORDERED: NALOXONE 0.4 MG/ML 1 ML VIAL IV PRN (05:13)
[2024-02-02] MEDS: SODIUM CHLORIDE 0.9% 1,000 ML IV STA (05:51)
[2024-02-02] MEDS: MAGNESIUM SULFATE-D5W PMX 1 GM in DEXTROSE/WATER 1 100ML.BAG IVPB SCH (05:55)
[2024-02-02] MEDS: diphenhydrAMINE 50 MG/ML 1 ML VIAL IVP PRN (10:59)
[2024-02-02] MEDS: LORazepam 1 MG/0.5 ML VIAL IV ONE (12:18)
[2024-02-02] MEDS: LORazepam 1 MG/0.5 ML VIAL IV PRN (16:30)
[2024-02-02] MEDS ORDERED: hydrOXYzine HCL 25 MG TAB PO PRN (17:00)
--- NOTE | 2024-02-02 17:04 | P.HPIM ---
History of Present Illness H&P Date: 02/02/24 Sunshine Graham, is a 63-year-old female who presented to [facility] emergency room with a chief complaint of diarrhea and generalized weakness She was evaluated in the emergency room vital examination on presentation revealed a temperature of 98.7 pulse 87 respiration 18 blood pressure 114/86 pulse ox 100% on room air Laboratory data reveals a white blood count of 9.3 hemoglobin 14.4 platelet count 273 AST elevated at 85 ALT 79 alkaline phosphatase 119 creatinine 0.44 alcohol level CCLIV Patient was admitted to medical floor for further evaluation and treatment Past Medical History Past Medical History: Hypertension, Osteoarthritis (OA) Additional Past Medical History / Comment(s): FallSeptember 2019 with neck injury/L arm weak/decreased sensation and weakness to L leg-sent to 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 History of Any Multi-Drug Resistant Organisms: None Reported Past Surgical History: AICD, Back Surgery Additional Past Surgical History / Comment(s): Cervical surgery at [facility] d/t injury, colonoscopies/benign polypectomy Past Anesthesia/Blood Transfusion Reactions: No Reported Reaction, Motion Sickness Additional Past Anesthesia/Blood Transfusion Reaction / Comment(s): PT has clausterphobia. Type of Cardiac Device: AICD Device Placement Date:: unknown Past Psychological History: Anxiety Smoking Status: Current some day smoker Past Alcohol Use History: Abuse, Daily, Heavy Past Drug Use History: None Reported - Past Family History Mother Family Medical History: Cancer Additional Family Medical History / Comment(s): Mother of melanoma Father Family Medical History: No Reported History Additional Family Medical History / Comment(s): Father is healthy Medications and Allergies Home Medications Medication Instructions Recorded Confirmed Type Cholecalciferol [Vitamin D3 (25 50 mcg PO DIRECTED 02/02/24 02/02/24 History Mcg = 1000 Iu)] Folic Acid-Vit B Complex-Vit C 1 cap PO DIRECTED 02/02/24 02/02/24 History [Nephrocaps] Magnesium Oxide [Mag-Ox] 400 mg PO DIRECTED 02/02/24 02/02/24 History Mirtazapine [Remeron] 15 mg PO DIRECTED 02/02/24 02/02/24 History Multivitamins, Thera [Multivitamin 1 tab PO DIRECTED 02/02/24 02/02/24 History (formulary)] PARoxetine [Paxil] 10 mg PO DIRECTED 02/02/24 02/02/24 History Thiamine [Vitamin B-1] 100 mg PO DIRECTED 02/02/24 02/02/24 History cefUROXime axetiL [Ceftin] 500 mg PO DIRECTED 02/02/24 02/02/24 History hydrALAZINE HCL [Apresoline] 25 mg PO DIRECTED 02/02/24 02/02/24 History hydrOXYzine HCL [Atarax] 25 mg PO DIRECTED PRN 02/02/24 02/02/24 History Allergies Allergy/AdvReac Type Severity Reaction Status Date / Time shellfish derived [Shellfish] Allergy Severe Dyspnea Verified 02/02/24 09:29 iodine Allergy Rash/Hives Verified 02/02/24 09:29 Sulfa (Sulfonamide Allergy Rash/Hives Verified 02/02/24 09:29 Antibiotics) Physical Exam Vitals: Vital Signs Temp Pulse Pulse Resp BP BP Pulse Ox 02/02/24 07:06 98.7 F 89 18 119/69 96 02/02/24 05:58 82 18 110/69 98 02/02/24 02:49 98.7 F 87 18 114/86 100 Intake and Output 02/01/24 02/02/24 02/02/24 22:59 06:59 14:59 Intake Total 118 Balance 118 Intake: Oral 118 Other: Voiding Method Diaper Incontinent Weight 72.575 kg In general patient is alert and oriented x 3 in no distress HEENT head normocephalic and atraumatic Neck is supple no JVD no goiter no lymphadenopathy no carotid bruit Chest examination is clear to auscultation no crackles no wheezing Cardiac exam reveals regular heart sounds S1 and S2 no gallops no murmurs Abdomen is soft nontender no organomegaly with normal bowel sounds Extremity exam reveals no edema no cyanosis or clubbing Neurological examination reveals no gross focal deficits Results CBC & Chem 7: 02/02/24 04:30 02/02/24 04:30 Labs: Abnormal Lab Results - Last 24 Hours (Table) 02/02/24 02/02/24 Range/Units 04:30 04:30 MCV 102.8 H (80.0-100.0) fL Creatinine 0.44 L (0.52-1.04) mg/dL Calcium 8.2 L (8.4-10.2) mg/dL Magnesium 1.5 L (1.6-2.3) mg/dL AST 85 H (14-36) U/L ALT 79 H (4-34) U/L Alkaline Phosphatase 190 H (38-126) U/L Total Protein 6.2 L (6.3-8.2) g/dL Albumin 3.4 L (3.5-5.0) g/dL Serum Alcohol 254 H* mg/dL Assessment and Plan Plan: alcohol intoxication Gastroenteritis with diarrhea elevated liver enzymes Anxiety disorder Recent admission was alcohol withdrawal Urinary tract infection on recent admission At this time patient was seen and examined Home medications reviewed and reordered Patient was started on IV Ativan resume Ceftin for UTI Resume Remeron and Paxil For DVT prophylaxis subcu Lovenox Will follow closely
[2024-02-02] MEDS: PARoxetine 10 MG TAB PO SCH (20:19)
[2024-02-02] MEDS: hydrALAZINE HCL 25 MG TAB PO SCH (20:19)
[2024-02-02] MEDS: CEFDINIR 300 MG CAP PO SCH (20:20)
[2024-02-02] MEDS: MIRTAZAPINE 15 MG TAB PO SCH (20:20)
[2024-02-03] MEDS: MAGNESIUM OXIDE 400 MG TAB PO SCH (09:33)
[2024-02-03] MEDS: CHOLECALCIFEROL 25 MCG (1000 IU) TABLET PO SCH (09:33)
[2024-02-03] MEDS: MULTIVITAMINS, THERA 1 EACH TAB PO SCH (09:33)
[2024-02-03] MEDS: THIAMINE 100 MG TAB PO SCH (09:33)
[2024-02-03] MEDS: ENOXAPARIN 40 MG/0.4 ML SYRINGE SQ SCH (09:34)
[2024-02-03] MEDS: FOLIC ACID-VIT B COMPLEX-VIT C 1 CAP PO SCH (09:41)
[2024-02-03] MEDS ORDERED: LORazepam 1 MG TAB PO PRN ×2 (11:27)
--- NOTE | 2024-02-03 11:33 | P.PN ---
Subjective Progress Note Date: 02/03/24 Sunshine Graham, is a 63-year-old female who presented to [facility] emergency room with a chief complaint of diarrhea and generalized weakness She was evaluated in the emergency room vital examination on presentation revealed a temperature of 98.7 pulse 87 respiration 18 blood pressure 114/86 pulse ox 100% on room air Laboratory data reveals a white blood count of 9.3 hemoglobin 14.4 platelet count 273 AST elevated at 85 ALT 79 alkaline phosphatase 119 creatinine 0.44 alcohol level CCLIV Patient was admitted to medical floor for further evaluation and treatment On 02/03/2024 for patient's alert and oriented 3. She reports she still having some unsteadiness. Alcohol withdrawal protocol initiated. Patient reports improvement diarrhea nausea and vomiting.Current vital signs temp 98.0, heart rate 161/89 with pulse ox 97% on room air Objective - Vital Signs Vital signs: Vital Signs Temp 98.0 F 02/03/24 06:55 Pulse 84 02/03/24 06:55 Resp 17 02/03/24 06:55 BP 161/89 02/03/24 06:55 Pulse Ox 97 02/03/24 06:55 FiO2 Intake & Output 02/02/24 02/03/24 02/03/24 18:59 06:59 18:59 Intake Total 413 236 Balance 413 236 Weight 72.575 kg Intake: Oral 413 236 Other: Voiding Method Diaper Incontinent # Voids 1 3 # Bowel Movements 1 5 - Exam In general patient is alert and oriented x 3 in no distress HEENT head normocephalic and atraumatic Neck is supple no JVD no goiter no lymphadenopathy no carotid bruit Chest examination is clear to auscultation no crackles no wheezing Cardiac exam reveals regular heart sounds S1 and S2 no gallops no murmurs Abdomen is soft nontender no organomegaly with normal bowel sounds Extremity exam reveals no edema no cyanosis or clubbing Neurological examination reveals no gross focal deficits - Labs CBC & Chem 7: 02/02/24 04:30 02/02/24 04:30 Assessment and Plan Plan: alcohol intoxication Gastroenteritis with diarrhea elevated liver enzymes Anxiety disorder Recent admission was alcohol withdrawal Urinary tract infection on recent admission At this time patient was seen and examined Home medications reviewed and reordered Patient was started on IV Ativan resume Ceftin for UTI Resume Remeron [facility] Will [facility] closely
[2024-02-03] MEDS: THIAMINE 100 MG/ML 2 ML VIAL IM STA (13:47)
[2024-02-04] MEDS: ACETAMINOPHEN TAB 325 MG TAB PO PRN (02:36)
[2024-02-04] MEDS: LORazepam 1 MG TAB PO PRN (08:13)
[2024-02-04] MEDS: THIAMINE 100 MG TAB PO SCH (08:14)
[2024-02-04 09:12] LABS: Basophils # (A) 0.13 X 10*3/uL (0.00-0.10); Basophils % (A) 2.2 %; Eosinophils # (A) 0.56 X 10*3/uL (0.04-0.35); Eosinophils % (A) 9.4 %; HCT 38.8 % (37.2-46.3); HGB 12.9 g/dL (12.0-15.0); Lymphocytes # (A) 1.13 X 10*3/uL (0.90-5.00); Lymphocytes % (A) 19.1 %; MCH 33.3 pg (27.0-32.0); MCHC 33.2 g/dL (32.0-37.0); MCV 100.3 FL (80.0-97.0); Mean Platelet Volume 10.8 FL (9.5-12.2); Monocytes # (A) 0.46 X 10*3/uL (0.20-1.00); Monocytes % (A) 7.8 %; NRBC Per 100 WBC 0 X 10*3/uL (0.00-0.01); Neutrophils # (A) 3.62 X 10*3/uL (1.80-7.70); Platelet Count 157 X 10*3/uL (140-440); RBC 3.87 X 10*6/uL (4.10-5.20); RDW 14.1 % (11.5-14.5); WBC 5.93 X 10*3/uL (4.50-10.00)
[2024-02-04 09:21] LABS: BUN/Creat Ratio 11.75 Ratio (12.00-20.00); Blood Urea Nitrogen 4.7 mg/dL (9.0-27.0); Glucose 90 mg/dL (70-110)
[2024-02-04 09:22] LABS: ALT 39 U/L (8-44); AST 31 U/L (13-35); Albumin 3.4 g/dL (3.8-4.9); Albumin/Globulin Ratio 1.48 Ratio (1.60-3.17); Alkaline Phosphatase 121 U/L (41-126); Calcium 8.2 mg/dL (8.7-10.3); Carbon Dioxide 19.9 mmol/L (21.6-31.8); Chloride 105 mmol/L (96-109); Globulin 2.3 g/dL (1.6-3.3); Potassium 3.7 mmol/L (3.5-5.5); Sodium 137 mmol/L (135-145); Total Bilirubin 0.8 mg/dL (0.3-1.2); Total Protein 5.7 g/dL (6.2-8.2)
--- NOTE | 2024-02-04 10:16 | P.PN ---
Subjective Progress Note Date: 02/04/24 Sunshine Graham, is a 63-year-old female who presented to [facility] emergency room with a chief complaint of diarrhea and generalized weakness She was evaluated in the emergency room vital examination on presentation revealed a temperature of 98.7 pulse 87 respiration 18 blood pressure 114/86 pulse ox 100% on room air Laboratory data reveals a white blood count of 9.3 hemoglobin 14.4 platelet count 273 AST elevated at 85 ALT 79 alkaline phosphatase 119 creatinine 0.44 alcohol level 254 Patient was admitted to medical floor for further evaluation and treatment On 02/03/2024 for patient's alert and oriented 3. She reports she still having some unsteadiness. Alcohol withdrawal protocol initiated. Patient reports improvement diarrhea nausea and vomiting.Current vital signs temp 98.0, heart rate 161/89 with pulse ox 97% on room air on 02/04/2024 patient was seen and examined on the medical floor she is alert and oriented 3 in no apparent distress, she is still complaining of generalized weakness and complaining of severe shaking in her hands, she is complaining of n ausea otherwise she denies any complaints, there is no fever or chills no headache or dizziness no chest pain no shortness of breath no cough no vomiting no abdominal pain no diarrhea and no urinary symptoms Objective - Vital Signs Vital signs: Vital Signs Temp 99.2 F 02/04/24 06:58 Pulse 81 02/04/24 06:58 Resp 17 02/04/24 06:58 BP 138/78 02/04/24 06:58 Pulse Ox 96 02/04/24 06:58 FiO2 Intake & Output 02/03/24 02/04/24 02/04/24 18:59 06:59 18:59 Intake Total 354 Balance 354 Intake: Oral 354 Other: Voiding Method Diaper Bedside Commode Incontinent Diaper Incontinent # Voids 3 3 # Bowel Movements 2 3 - Exam In general patient is alert and oriented x 3 in no distress HEENT head normocephalic and atraumatic Neck is supple no JVD no goiter no lymphadenopathy no carotid bruit Chest examination is clear to auscultation no crackles no wheezing Cardiac exam reveals regular heart sounds S1 and S2 no gallops no murmurs Abdomen is soft nontender no organomegaly with normal bowel sounds Extremity exam reveals no edema no cyanosis or clubbing Neurological examination reveals no gross focal deficits - Labs CBC & Chem 7: 02/04/24 04:34 02/04/24 04:34 Assessment and Plan Plan: alcohol intoxication Gastroenteritis with diarrhea elevated liver enzymes Anxiety disorder Recent admission was alcohol withdrawal Urinary tract infection on recent admission At this time patient was seen and examined Home medications reviewed and reordered Patient was started on IV Ativan resume Ceftin for UTI Resume Remeron and Paxil For DVT prophylaxis subcu Lovenox Will follow closely
[2024-02-04] MEDS: LORazepam 0.5 MG TAB PO PRN (12:48)
--- NOTE | 2024-02-05 09:56 | P.PN ---
Subjective Progress Note Date: 02/05/24 Sunshine Graham, is a 63-year-old female who presented to [facility] emergency room with a chief complaint of diarrhea and generalized weakness She was evaluated in the emergency room vital examination on presentation revealed a temperature of 98.7 pulse 87 respiration 18 blood pressure 114/86 pulse ox 100% on room air Laboratory data reveals a white blood count of 9.3 hemoglobin 14.4 platelet count 273 AST elevated at 85 ALT 79 alkaline phosphatase 119 creatinine 0.44 alcohol level 254 Patient was admitted to medical floor for further evaluation and treatment On 02/03/2024 for patient's alert and oriented 3. She reports she still having some unsteadiness. Alcohol withdrawal protocol initiated. Patient reports improvement diarrhea nausea and vomiting.Current vital signs temp 98.0, heart rate 161/89 with pulse ox 97% on room air on 02/04/2024 patient was seen and examined on the medical floor she is alert and oriented 3 in no apparent distress, she is still complaining of generalized weakness and complaining of severe shaking in her hands, she is complaining of n ausea otherwise she denies any complaints, there is no fever or chills no headache or dizziness no chest pain no shortness of breath no cough no vomiting no abdominal pain no diarrhea and no urinary symptoms On 02/05/2024 patient is alert and oriented x 3. Patient is still complaining of some generalized weakness. Per nursing staff patient has been qualifying for Ativan on alcohol withdrawal protocol. Patient denies chest pain or shortness of breath. Patient denies nausea vomiting or diarrhea. Patient denies any urinary burning or frequency. Will consult PT OT services Objective - Vital Signs Vital signs: Vital Signs Temp 98.2 F 02/05/24 07:32 Pulse 84 02/05/24 07:32 Resp 18 02/05/24 07:32 BP 137/81 02/05/24 07:32 Pulse Ox 96 02/05/24 07:32 FiO2 Intake & Output 02/04/24 02/05/24 02/05/24 18:59 06:59 18:59 Output Total 0 0 Balance 0 0 Output: Stool 0 0 Other: Voiding Method Toilet Toilet # Voids 2 2 - Exam In general patient is alert and oriented x 3 in no distress HEENT head normocephalic and atraumatic Neck is supple no JVD no goiter no lymphadenopathy no carotid bruit Chest examination is clear to auscultation no crackles no wheezing Cardiac exam reveals regular heart sounds S1 and S2 no gallops no murmurs Abdomen is soft nontender no organomegaly with normal bowel sounds Extremity exam reveals no edema no cyanosis or clubbing Neurological examination reveals no gross focal deficits - Labs CBC & Chem 7: 02/04/24 04:34 02/04/24 04:34 Assessment and Plan Plan: alcohol intoxication Gastroenteritis with diarrhea elevated liver enzymes Anxiety disorder Recent admission was alcohol withdrawal Urinary tract infection on recent admission At this time patient was seen and examined Home medications reviewed and reordered Patient was started on IV Ativan resume Ceftin for UTI Resume Remeron and Paxil For DVT prophylaxis subcu Lovenox Will follow closely PT OT services consulted
[2024-02-06 09:24] LABS: Basophils # (A) 0.13 X 10*3/uL (0.00-0.10); Basophils % (A) 1.6 %; Eosinophils # (A) 0.99 X 10*3/uL (0.04-0.35); Eosinophils % (A) 12.1 %; HCT 40.6 % (37.2-46.3); HGB 13.2 g/dL (12.0-15.0); Lymphocytes # (A) 1.77 X 10*3/uL (0.90-5.00); Lymphocytes % (A) 21.7 %; MCH 33.3 pg (27.0-32.0); MCHC 32.5 g/dL (32.0-37.0); MCV 102.5 FL (80.0-97.0); Mean Platelet Volume 10.3 FL (9.5-12.2); Monocytes # (A) 0.65 X 10*3/uL (0.20-1.00); NRBC Per 100 WBC 0 X 10*3/uL (0.00-0.01); Neutrophils # (A) 4.57 X 10*3/uL (1.80-7.70); Neutrophils % (A) 56.1 %; Platelet Count 224 X 10*3/uL (140-440); RBC 3.96 X 10*6/uL (4.10-5.20); RDW 14.3 % (11.5-14.5); WBC 8.15 X 10*3/uL (4.50-10.00)
--- NOTE | 2024-02-06 09:43 | P.PN ---
Subjective Progress Note Date: 02/06/24 Sunshine Graham, is a 63-year-old female who presented to [facility] emergency room with a chief complaint of diarrhea and generalized weakness She was evaluated in the emergency room vital examination on presentation revealed a temperature of 98.7 pulse 87 respiration 18 blood pressure 114/86 pulse ox 100% on room air Laboratory data reveals a white blood count of 9.3 hemoglobin 14.4 platelet count 273 AST elevated at 85 ALT 79 alkaline phosphatase 119 creatinine 0.44 alcohol level 254 Patient was admitted to medical floor for further evaluation and treatment On 02/03/2024 for patient's alert and oriented 3. She reports she still having some unsteadiness. Alcohol withdrawal protocol initiated. Patient reports improvement diarrhea nausea and vomiting.Current vital signs temp 98.0, heart rate 161/89 with pulse ox 97% on room air on 02/04/2024 patient was seen and examined on the medical floor she is alert and oriented 3 in no apparent distress, she is still complaining of generalized weakness and complaining of severe shaking in her hands, she is complaining of n ausea otherwise she denies any complaints, there is no fever or chills no headache or dizziness no chest pain no shortness of breath no cough no vomiting no abdominal pain no diarrhea and no urinary symptoms On 02/05/2024 patient is alert and oriented x 3. Patient is still complaining of some generalized weakness. Per nursing staff patient has been qualifying for Ativan on alcohol withdrawal protocol. Patient denies chest pain or shortness of breath. Patient denies nausea vomiting or diarrhea. Patient denies any urinary burning or frequency. Will consult PT OT services. on 02/06/2024 patient was seen and examined on the medical floor she is alert and oriented 3 in no apparent distress, she is still complaining of generalized weakness, and difficulty ambulating, and complaining of shaking in her hands, she is complaining of nausea otherwise she denies any complaints, there is no f ever or chills no headache or dizziness no chest pain no shortness of breath no cough no vomiting no abdominal pain no diarrhea and no urinary symptoms Objective - Vital Signs Vital signs: Vital Signs Temp 98.5 F 02/06/24 07:20 Pulse 78 02/06/24 07:20 Resp 17 02/06/24 07:20 BP 131/75 02/06/24 07:20 Pulse Ox 94 L 02/06/24 07:20 FiO2 Intake & Output 02/05/24 02/06/24 02/06/24 18:59 06:59 18:59 Intake Total 236 Output Total 0 Balance 0 236 Intake: Oral 236 Output: Stool 0 Other: Voiding Method Toilet Toilet # Voids 3 2 # Bowel Movements 1 - Exam In general patient is alert and oriented x 3 in no distress HEENT head normocephalic and atraumatic Neck is supple no JVD no goiter no lymphadenopathy no carotid bruit Chest examination is clear to auscultation no crackles no wheezing Cardiac exam reveals regular heart sounds S1 and S2 no gallops no murmurs Abdomen is soft nontender no organomegaly with normal bowel sounds Extremity exam reveals no edema no cyanosis or clubbing Neurological examination reveals no gross focal deficits - Labs CBC & Chem 7: 02/06/24 06:25 02/04/24 04:34 Assessment and Plan Plan: alcohol intoxication Gastroenteritis with diarrhea elevated liver enzymes Anxiety disorder Recent admission was alcohol withdrawal Urinary tract infection on recent admission At this time patient was seen and examined Home medications reviewed and reordered Patient was started on IV Ativan resume Ceftin for UTI Resume Remeron and Paxil For DVT prophylaxis subcu Lovenox Will follow closely PT OT services consulted
[2024-02-06 10:11] LABS: ALT 27 U/L (8-44); AST 33 U/L (13-35); Albumin 3.5 g/dL (3.8-4.9); Albumin/Globulin Ratio 1.46 Ratio (1.60-3.17); Alkaline Phosphatase 88 U/L (41-126); Blood Urea Nitrogen 9.5 mg/dL (9.0-27.0); Calcium 8.5 mg/dL (8.7-10.3); Carbon Dioxide 20.8 mmol/L (21.6-31.8); Chloride 104 mmol/L (96-109); Globulin 2.4 g/dL (1.6-3.3); Glucose 87 mg/dL (70-110); Potassium 3.9 mmol/L (3.5-5.5); Sodium 135 mmol/L (135-145); Total Bilirubin 0.4 mg/dL (0.3-1.2); Total Protein 5.9 g/dL (6.2-8.2)
[2024-02-07 09:47] VITALS: BP 133/71; PULSE 77; RESP 16; TEMP 98.2
--- NOTE | 2024-02-07 10:43 | P.DS ---
Providers Date of admission: 02/02/24 05:13 Expected date of discharge: 02/07/24 Attending physician: Aileen Torres Primary care physician: Aileen Torres [facility] Course: discharge diagnosis alcohol intoxication Gastroenteritis with diarrhea elevated liver enzymes Anxiety disorder Recent admission was alcohol withdrawal Urinary tract infection on recent admission Hospital course Sunshine Graham, is a 63-year-old female who presented to [facility] emergency room with a chief complaint of diarrhea and generalized weakness She was evaluated in the emergency room vital examination on presentation revealed a temperature of 98.7 pulse 87 respiration 18 blood pressure 114/86 pulse ox 100% on room air Laboratory data reveals a white blood count of 9.3 hemoglobin 14.4 platelet count 273 AST elevated at 85 ALT 79 alkaline phosphatase 119 creatinine 0.44 alcohol level 254 Patient was admitted to medical floor for further evaluation and treatment On 02/03/2024 for patient's alert and oriented 3. She reports she still having some unsteadiness. Alcohol withdrawal protocol initiated. Patient reports improvement diarrhea nausea and vomiting.Current vital signs temp 98.0, heart rate 161/89 with pulse ox 97% on room air on 02/04/2024 patient was seen and examined on the medical floor she is alert and oriented 3 in no apparent distress, she is still complaining of generalized weakness and complaining of severe shaking in her hands, she is complaining of nausea otherwise she denies any complaints, there is no fever or chills no headache or dizziness no chest pain no shortness of breath no cough no vomiting no abdominal pain no diarrhea and no urinary symptoms On 02/05/2024 patient is alert and oriented x 3. Patient is still complaining of some generalized weakness. Per nursing staff patient has been qualifying for Ativan on alcohol withdrawal protocol. Patient denies chest pain or shortness of breath. Patient denies nausea vomiting or diarrhea. Patient denies any urinary burning or frequency. Will consult PT OT services. on 02/06/2024 patient was seen and examined on the medical floor she is alert and oriented 3 in no apparent distress, she is still complaining of generalized weakness, and difficulty ambulating, and complaining of shaking in her hands, she is complaining of nausea otherwise she denies any complaints, there is no f ever or chills no headache or dizziness no chest pain no shortness of breath no cough no vomiting no abdominal pain no diarrhea and no urinary symptoms On 02/07/2024 patient's alert and oriented 3. Patient was up ambulating with PT improved patient ready for DC. Patient will be discharged with by mouth Ativan when necessary. Educate patient about discontinuing of alcohol use. patient denies chest pain or shortness of breath. Patient denies diarrhea. Patient denies any burning or frequency Patient Condition at Discharge: Stable Plan - Discharge Summary New Discharge Prescriptions: New LORazepam [Ativan] 0.5 mg PO TID PRN 3 Days #9 tab PRN Reason: Alcohol Withdrawal Continue Cholecalciferol [Vitamin D3 (25 Mcg = 1000 Iu)] 50 mcg PO DIRECTED hydrALAZINE HCL [Apresoline] 25 mg PO DIRECTED hydrOXYzine HCL [Atarax] 25 mg PO DIRECTED PRN PRN Reason: Itching Mirtazapine [Remeron] 15 mg PO DIRECTED PARoxetine [Paxil] 10 mg PO DIRECTED Folic Acid-Vit B Complex-Vit C [Nephrocaps] 1 cap PO DIRECTED Multivitamins, Thera [Multivitamin (formulary)] 1 tab PO DIRECTED Magnesium Oxide [Mag-Ox] 400 mg PO DIRECTED Thiamine [Vitamin B-1] 100 mg PO DIRECTED Discontinued cefUROXime axetiL [Ceftin] 500 mg PO DIRECTED Discharge Medication List Cholecalciferol [Vitamin D3 (25 Mcg = 1000 Iu)] 50 mcg PO DIRECTED 02/02/24 [History] Folic Acid-Vit B Complex-Vit C [Nephrocaps] 1 cap PO DIRECTED 02/02/24 [History] Magnesium Oxide [Mag-Ox] 400 mg PO DIRECTED 02/02/24 [History] Mirtazapine [Remeron] 15 mg PO DIRECTED 02/02/24 [History] Multivitamins, Thera [Multivitamin (formulary)] 1 tab PO DIRECTED 02/02/24 [History] PARoxetine [Paxil] 10 mg PO DIRECTED 02/02/24 [History] Thiamine [Vitamin B-1] 100 mg PO DIRECTED 02/02/24 [History] hydrALAZINE HCL [Apresoline] 25 mg PO DIRECTED 02/02/24 [History] hydrOXYzine HCL [Atarax] 25 mg PO DIRECTED PRN 02/02/24 [History] LORazepam [Ativan] 0.5 mg PO TID PRN 3 Days #9 tab 02/07/24 [Rx] Follow up Appointment(s)/Referral(s): Aileen Torres MD [Primary Care Provider] - 1-2 days Discharge/Stand Alone Forms: AA Meetings & 24 - [facility], AA Meetings . [facility], Who Do I Call?, Community Resources, Outpatient Counseling, In Substance Abuse Facilities
== END 2024-02-07 11:58 | disposition home or self-care (01) ==
LOC: EC 02:39 → 6NMEDSUR 05:13
PROVIDERS: ADMIT Internal Medicine; ATTEND Internal Medicine
DX: F10.229 Alcohol dependence with intoxication, unspecified (principal); K52.9 Noninfective gastroenteritis and colitis, unspecified; E46 Unspecified protein-calorie malnutrition; E83.42 Hypomagnesemia; E83.51 Hypocalcemia; R74.01 Elevation of levels of liver transaminase levels; N39.0 Urinary tract infection, site not specified; R53.1 Weakness; Y90.8 Blood alcohol level of 240 mg/100 ml or more; F41.9 Anxiety disorder, unspecified; F17.200 Nicotine dependence, unspecified, uncomplicated; Z79.899 Other long term (current) drug therapy; Z91.013 Allergy to seafood; Z88.2 Allergy status to sulfonamides; Z91.048 Other nonmedicinal substance allergy status
CPT/HCPCS: 96376 ×6; 96361; 96366; 96372 ×5; 96375; 96365; 99285; 36415; 97162; 97166; 80053 ×3; 83690; 83735; 85025 ×3; 80320; G0378 ×6; J2060 ×5; J1200 ×6; J1650 ×5; J3475

== ENCOUNTER 2024-03-25 01:37 | Emergency (ER) | payer BC, OTHER ==
[2024-03-25 01:48] VITALS: TEMP 97.7
--- NOTE | 2024-03-25 02:08 | ED ---
General Adult HPI - General Chief complaint: Skin/Abscess/Foreign Body Stated complaint: Rash Time Seen by Provider: 03/25/24 01:40 Source: patient, EMS, RN notes reviewed Mode of arrival: EMS Limitations: no limitations - History of Present Illness Initial comments: 64 year old female presented to the emergency department for evaluation of rash on body. Patient states that it has been present for multiple weeks. She was on steroids in the past and had improvement. She noticed that around her eyes is starting to become affected. She denies fever, chills, new exposures. - Related Data Home Medications Medication Instructions Recorded Confirmed Cholecalciferol [Vitamin D3 (25 50 mcg PO DIRECTED 02/02/24 02/02/24 Mcg = 1000 Iu)] Folic Acid-Vit B Complex-Vit C 1 cap PO DIRECTED 02/02/24 02/02/24 [Nephrocaps] Magnesium Oxide [Mag-Ox] 400 mg PO DIRECTED 02/02/24 02/02/24 Mirtazapine [Remeron] 15 mg PO DIRECTED 02/02/24 02/02/24 Multivitamins, Thera [Multivitamin 1 tab PO DIRECTED 02/02/24 02/02/24 (formulary)] PARoxetine [Paxil] 10 mg PO DIRECTED 02/02/24 02/02/24 Thiamine [Vitamin B-1] 100 mg PO DIRECTED 02/02/24 02/02/24 hydrALAZINE HCL [Apresoline] 25 mg PO DIRECTED 02/02/24 02/02/24 hydrOXYzine HCL [Atarax] 25 mg PO DIRECTED PRN 02/02/24 02/02/24 Previous Rx's Medication Instructions Recorded LORazepam [Ativan] 0.5 mg PO TID PRN 3 Days #9 tab 02/07/24 hydrOXYzine HCL [Atarax] 25 mg PO TID PRN #15 tab 03/25/24 methylPREDNISolone Dose Pack 4 mg PO DIRECTED #1 packet 03/25/24 [Medrol Dose Pack] Allergies Allergy/AdvReac Type Severity Reaction Status Date / Time shellfish derived [Shellfish] Allergy Severe Dyspnea Verified 03/25/24 01:43 iodine Allergy Rash/Hives Verified 03/25/24 01:43 Sulfa (Sulfonamide Allergy Rash/Hives Verified 03/25/24 01:43 Antibiotics) Review of Systems ROS Statement: Those systems with pertinent positive or pertinent negative responses have been documented in the HPI. ROS Other: All systems not noted in ROS Statement are negative. 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 History of Any Multi-Drug Resistant Organisms: None Reported Past Surgical History: AICD, Back Surgery Additional Past Surgical History / Comment(s): Cervical surgery at [facility] d/t injury, colonoscopies/benign polypectomy Past Anesthesia/Blood Transfusion Reactions: No Reported Reaction, Motion Sickness Additional Past Anesthesia/Blood Transfusion Reaction / Comment(s): PT has clausterphobia. Type of Cardiac Device: AICD Device Placement Date:: unknown Past Psychological History: Anxiety Smoking Status: Current some day smoker Past Alcohol Use History: Abuse, Daily, Heavy Past Drug Use History: None Reported - Past Family History Mother Family Medical History: Cancer Additional Family Medical History / Comment(s): Mother of melanoma Father Family Medical History: No Reported History Additional Family Medical History / Comment(s): Father is healthy General Exam Limitations: no limitations General appearance: alert, in no apparent distress Head exam: Present: atraumatic, normocephalic, normal inspection Eye exam: Present: normal appearance, PERRL, EOMI. Absent: scleral icterus, conjunctival injection, periorbital swelling Respiratory exam: Present: normal lung sounds bilaterally. Absent: respiratory distress, wheezes, rales, rhonchi, stridor Cardiovascular Exam: Present: regular rate, normal rhythm, normal heart sounds. Absent: systolic murmur, diastolic murmur, rubs, gallop, clicks Neurological exam: Present: alert, oriented X3 Psychiatric exam: Present: normal affect, normal mood Skin exam: Present: warm, dry, rash (erythematous scaling rash to truck and face). Absent: normal color Course Vital Signs 03/25/24 03/25/24 01:43 03:35 Temperature 97.7 F Pulse Rate 94 94 Respiratory 18 18 Rate Blood Pressure 137/74 137/78 O2 Sat by Pulse 98 99 Oximetry Medical Decision Making - Medical Decision Making Was pt. sent in by a medical professional or institution (, EDITH, DEHYDROGENATION OPERATOR, urgent care, hospital, or group home...) When possible be specific @ -[No] Did you speak to anyone other than the patient for history (EMS, parent, family, police, friend...)? What history was obtained from this source @ -[No] Did you review nursing and triage notes (agree or disagree)? Why? @ -[I reviewed and agree with nursing and triage notes] Were old charts reviewed (outside hosp., previous admission, EMS record, old EKG, old radiological studies, urgent care reports/EKG's, group home records)? Report findings @ -[No old charts were reviewed] Differential Diagnosis (chest pain, altered mental status, abdominal pain women, abdominal pain men, vaginal bleeding, weakness, fever, dyspnea, syncope, headache, dizziness, GI bleed, back pain, seizure, CVA, palpatations, mental health, musculoskeletal)? @ -[atopic dermatitis, contact dermatitis, cellulitis, this list is not all inclusive ] EKG interpreted by me (3pts min.). @ -none X-rays interpreted by me (1pt min.). @ -[None done] CT interpreted by me (1pt min.). @ -[None done] U/S interpreted by me (1pt. min.). @ -[None done] What testing was considered but not performed or refused? (CT, X-rays, U/S, labs)? Why? @ -[None] What meds were considered but not given or refused? Why? @ -[None] Did you discuss the management of the patient with other professionals (professionals i.e. , EDITH, DEHYDROGENATION OPERATOR, lab, RT, psych nurse, social security assessor, electrical logger, teacher, systems support officer, caser)? Give summary @ -[No] Was smoking cessation discussed for >3mins.? @ -[No] Was critical care preformed (if so, how long)? @ -[No] Were there social determinants of health that impacted care today? How? (Homelessness, low income, unemployed, alcoholism, drug addiction, transportation, low edu. Level, literacy, decrease access to med. care, fci, rehab)? @ -[No] Was there de-escalation of care discussed even if they declined (Discuss DNR or withdrawal of care, Hospice)? DNR status @ -[No] What co-morbidities impacted this encounter? (DM, HTN, Smoking, COPD, CAD, Cancer, CVA, ARF, Chemo, Hep., AIDS, mental health diagnosis, sleep apnea, morbid obesity)? @ -[None] Was patient admitted / discharged? Hospital course, mention meds given and route, prescriptions, significant lab abnormalities, going to OR and other pertinent info. @ -[discharged. Patient presented to the emergency department for rash. Patient will be started on PO steriods and eye drops. She was provided a dose of IV steroids and hydroxyzine in the ED. Patient discharged home. Patient stable at time of discharge. Case discussed with Dr. Carmona] Undiagnosed new problem with uncertain prognosis? @ -[No] Drug Therapy requiring intensive monitoring for toxicity (Heparin, Nitro, Insulin, Cardizem)? @ -[No] Were any procedures done? @ -[No] Diagnosis/symptom? @ -[contact dermatitis] Acute, or Chronic, or Acute on Chronic? @ -[acute] Uncomplicated (without systemic symptoms) or Complicated (systemic symptoms)? @ -[uncomplicated] Side effects of treatment? @ -[No] Exacerbation, Progression, or Severe Exacerbation? @ -[No] Poses a threat to life or bodily function? How? (Chest pain, [place], [place], pneumonia, PE, COPD, DKA, ARF, appy, cholecystitis, CVA, Diverticulitis, Homicidal, Suicidal, threat to staff... and all critical care pts) @ -[No] Disposition Clinical Impression: Dermatitis Disposition: HOME SELF-CARE Condition: Stable Instructions (If sedation given, give patient instructions): Dermatitis (ED) Additional Instructions: Please follow up with dermatology. 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 Follow up with your primary care provider. Return to the emergency department for new or worsening symptoms. Prescriptions: hydrOXYzine HCL [Atarax] 25 mg PO TID PRN #15 tab PRN Reason: Itching methylPREDNISolone Dose Pack [Medrol Dose Pack] 4 mg PO DIRECTED #1 packet Is patient prescribed a controlled substance at d/c from ED?: No Referrals: Aileen Torres MD [Primary Care Provider] - 1-2 days Nora Nguyen MD [STAFF PHYSICIAN] - 1-2 days Virginie Nguyen MD [STAFF PHYSICIAN] - 1-2 days
[2024-03-25 02:10] VITALS: PULSE 94; RESP 18
[2024-03-25] MEDS: PROPARACAINE 0.5% OPHTH DROPS 15 ML BTL BOTH EYES STA (02:46)
[2024-03-25] MEDS: FLUORESCEIN STRIPS 1 MG STRIP BOTH EYES ONE (02:46)
[2024-03-25] MEDS: hydrOXYzine HCL 25 MG TAB PO STA (03:09)
[2024-03-25] MEDS: KETOROLAC 15 MG/ML 1 ML VIAL IM STA (03:10)
[2024-03-25] MEDS: methylPREDNISolone SOD SUCCI 125 MG/2 ML VIAL IM ONE (03:15)
[2024-03-25] MEDS: POLYMYXIN B-TRIMETHOPRIM SULF (10,000-1) OPHTH DROPS 10 ML BTL BOTH EYES STA (03:22)
[2024-03-25 03:58] VITALS: BP 137/78
== END 2024-03-25 03:58 | disposition home or self-care (01) ==
LOC: EC 01:37
DX: L30.9 Dermatitis, unspecified (principal); F17.200 Nicotine dependence, unspecified, uncomplicated; Z91.013 Allergy to seafood; Z88.2 Allergy status to sulfonamides; Z88.8 Allergy status to other drugs, medicaments and biological substances; Z91.041 Radiographic dye allergy status
CPT/HCPCS: 99284; 96372 ×2; J1885; J2919

== ENCOUNTER → 2024-06-11 | Outpatient (CLI) | payer BC, OTHER ==
--- NOTE | 2024-06-11 15:10 | BD ---
EXAMINATION TYPE: Axial Bone Density DATE OF EXAM: 06/11/2024 CLINICAL HISTORY: 64 years old Female. ICD-10 CODE: N95.1 POST MENOPAUSE Height: 68in Weight: 154lb FRAX RISK QUESTIONS: History of Fracture in Adulthood: yes Secondary Osteoporosis: Current Tobacco Use: yes RISK FACTORS HISTORY OF: Spine Fracture: cervical When: about 5 years ago Surgery to Spine/Hip(right/left)/Wrist (right/left): cervical surgery When: about 5 years ago MEDICATIONS: EXAM MEASUREMENTS: Bone mineral densitometry was performed using the [employer] System. Bone mineral density as measured about the Lumbar spine is: ----- L1-L4(G/cm2): 1.356 T Score Values are as follows: ----- L1: 1.0 ----- L2: 1.6 ----- L3: 1.7 ----- L4: 1.3 ----- L1-L4: 1.5 Z Score Values are as follows: ----- L1: 2.3 ----- L2: 2.9 ----- L3: 3.0 ----- L4: 2.6 ----- L1-L4: 2.8 Bone mineral density has: Decreased -4.4% since study of: 09-15-10 Bone mineral density about the R hip (g/cm2): 1.039 Bone mineral density about the L hip (g/cm2): 1.006 T Score values are as follows: -----R Neck: -0.4 -----L Neck: -0.7 -----R Total: 0.2 -----L Total: 0.0 Z Score values are as follows: -----R Neck: 0.9 -----L Neck: 0.6 -----R Total: 1.2 -----L Total: 1.0 Bone mineral density has: Decreased -8.6% since study of: 09-15-10 FRAX%s: The graph provided illustrates a 11.6% chance for a major osteoporotic fx and a 1.0% chance f or the hips probability for fx in 10 years time. IMPRESSION: Normal (Values between +1 and -1 indicate normal bone mass). Consider repeating this study in 5 year s or sooner if there is some new clinical indication. NOTE: T-SCORE=SD OF THE YOUNG ADULT MEAN. [facility], , 06/11/2024 3:08 PM
--- NOTE | 2024-06-12 09:00 | MM ---
Reason for Exam: Screening (asymptomatic). Last mammogram was performed 1 year(s) and 2 month(s) ago. Patient History: Menarche at age 13. First Full-Term at age 37. Late child-bearing (after 30). Postmenopausal. Patient has history of breast feeding. Patient used Hormonal Contraceptives for 2 years. Maternal aunt had breast cancer, age 60. Risk Values: Julieta 5 year model risk: 2.2%. NCI Lifetime model risk: 9.1%. Prior Study Comparison: 01/30/2016 Bilateral Screening Mammogram, [facility]. 11/10/2018 Bilateral Screening Mammogram, [facility]. 03/31/2023 Bilateral MG screening mammo w CAD, [facility]. Tissue Density: The breasts are extremely dense, which lowers the sensitivity of mammography. Findings: Analyzed By CAD. Right breast: There is no suspicious group of microcalcifications or new suspicious mass. Left breast: New mass in the left axilla compared to 23 measuring up to 21 and 8 mm. Previously 8 mm lesion was 4.2 mm. Overall Assessment: Incomplete: need additional imaging evaluation, BI-RAD 0 Management: Diagnostic Mammogram of the left breast. Diagnostic Breast Ultrasound of the left breast. [facility] will attempt to contact patient to return for supplemental views and ultrasound if indicated. Patient should continue monthly self-breast exams. A clinical breast exam by your physician is recommended on an annual basis. This exam should not preclude additional follow-up of suspicious palpable abnormalities. Note on Julieta scores and lifetime risk: 1. A Julieta score greater than 3% is considered moderate risk. If this is the case, consider specialist referral to assess eligibility for a risk reducing agent. 2. If overall lifetime risk for the development of breast cancer is 20% or higher, the patient may qualify for future screening with alternating mammogram and breast MRI. [facility], , 06/12/2024 8:58 AM. Electronically signed and approved by: Raphael Saravia DO
== END | disposition home or self-care (01) ==
LOC: RADMAMWWP 14:03
PROVIDERS: ATTEND Internal Medicine
DX: Z12.31 Encounter for screening mammogram for malignant neoplasm of breast (principal); R92.343 Mammographic extreme density, bilateral breasts; M85.88 Other specified disorders of bone density and structure, other site; Z78.0 Asymptomatic menopausal state; Z80.3 Family history of malignant neoplasm of breast
CPT/HCPCS: 77063; 77067; 77080

== ENCOUNTER → 2024-06-11 | Outpatient (CLI) | payer BC, OTHER ==
[2024-06-11 18:15] LABS: Basophils # (A) 0.09 X 10*3/uL (0.00-0.10); Basophils % (A) 0.8 %; Eosinophils # (A) 0.47 X 10*3/uL (0.04-0.35); Eosinophils % (A) 4.2 %; HCT 42.6 % (37.2-46.3); Lymphocytes # (A) 3.16 X 10*3/uL (0.90-5.00); Lymphocytes % (A) 28.1 %; MCH 30.8 pg (27.0-32.0); MCHC 32.9 g/dL (32.0-37.0); MCV 93.8 FL (80.0-97.0); Mean Platelet Volume 11.9 FL (9.5-12.2); Monocytes # (A) 0.79 X 10*3/uL (0.20-1.00); NRBC Per 100 WBC 0 X 10*3/uL (0.00-0.01); Neutrophils # (A) 6.68 X 10*3/uL (1.80-7.70); Neutrophils % (A) 59.5 %; Platelet Count 276 X 10*3/uL (140-440); RBC 4.54 X 10*6/uL (4.10-5.20); RDW 12.9 % (11.5-14.5); WBC 11.23 X 10*3/uL (4.50-10.00)
[2024-06-11 19:21] LABS: % Iron Saturation 12.69 (12.00-45.00); ALT 18 U/L (8-44); AST 20 U/L (13-35); Albumin 4.5 g/dL (3.8-4.9); Albumin/Globulin Ratio 1.55 Ratio (1.60-3.17); Alkaline Phosphatase 57 U/L (41-126); BUN/Creat Ratio 21.83 Ratio (12.00-20.00); Blood Urea Nitrogen 13.1 mg/dL (9.0-27.0); Calcium 9.9 mg/dL (8.7-10.3); Carbon Dioxide 25.9 mmol/L (21.6-31.8); Chloride 103 mmol/L (96-109); Ferritin 16.1 ng/mL (10.0-291.0); Globulin 2.9 g/dL (1.6-3.3); Glucose 83 mg/dL (70-110); Iron 57 UG/DL (50-170); Sodium 140 mmol/L (135-145); T4, Free (Free Thyroxine) 1.03 ng/dL (0.80-1.80); Total Bilirubin 0.2 mg/dL (0.3-1.2); Total Iron Binding Capacity 449 UG/DL (228-460); Total Protein 7.4 g/dL (6.2-8.2)
== END | disposition home or self-care (01) ==
LOC: LABWHC1 14:07
PROVIDERS: ATTEND Nurse Practitioner
DX: L20.89 Other atopic dermatitis
CPT/HCPCS: 36415; 80053; 82728; 83540; 83550; 84439; 84443; 85025

== ENCOUNTER → 2024-06-25 | Outpatient (CLI) | payer BC, OTHER ==
--- NOTE | 2024-06-25 11:57 | MM ---
Reason for Exam: Additional evaluation requested from abnormal screening. Last screening mammogram was performed less than 1 month ago. Patient History: Menarche at age 13. First Full-Term at age 37. Late child-bearing (after 30). Postmenopausal. Patient has history of breast feeding. Patient used Hormonal Contraceptives for 2 years. Maternal aunt had breast cancer, age 60. Risk Values: Julieta 5 year model risk: 2.2%. NCI Lifetime model risk: 9.1%. Prior Study Comparison: 11/10/2018 Bilateral Screening Mammogram, [facility]. 03/31/2023 Bilateral MG screening mammo w CAD, [facility]. 06/11/2024 Bilateral MG 3D screening mammo w/cad, [facility]. Tissue Density: Left: The breasts are extremely dense, which lowers the sensitivity of mammography. Findings: Analyzed By CAD. lymph node in the left axilla are again redemonstrated and not significantly changed in size patient reports infection in the left upper extremity. Overall Assessment: Incomplete: need additional imaging evaluation, BI-RAD 0 Management: Diagnostic Breast Ultrasound of the left breast. Further evaluation with CT chest with IV contrast recommended. Results were given to the patient verbally at the time of exam. Patient should continue monthly self-breast exams. A clinical breast exam by your physician is recommended on an annual basis. This exam should not preclude additional follow-up of suspicious palpable abnormalities. Note on Julieta scores and lifetime risk: 1. A Julieta score greater than 3% is considered moderate risk. If this is the case, consider specialist referral to assess eligibility for a risk reducing agent. 2. If overall lifetime risk for the development of breast cancer is 20% or higher, the patient may qualify for future screening with alternating mammogram and breast MRI. [facility], , 06/25/2024 11:55 AM. Electronically signed and approved by: Raphael Saravia DO
--- NOTE | 2024-06-25 12:38 | USB ---
Reason for Exam: Additional evaluation requested from abnormal screening. Patient History: Menarche at age 13. First Full-Term at age 37. Late child-bearing (after 30). Postmenopausal. Patient has history of breast feeding. Patient used Hormonal Contraceptives for 2 years. Maternal aunt had breast cancer, age 60. Risk Values: Julieta 5 year model risk: 2.2%. NCI Lifetime model risk: 9.1%. Prior Study Comparison: 11/10/2018 Bilateral Screening Mammogram, [facility]. 03/31/2023 Bilateral MG screening mammo w CAD, [facility]. 06/11/2024 Bilateral MG 3D screening mammo w/cad, [facility]. Findings: The whole breast of the left breast, the axilla of the left breast and the retroareolar of the left breast were scanned. Technique utilized:US breast workup complete LT Image; Ultrasound imaging of: All 4 quadrants, the retroareolar region and axilla. Lymph nodes are identified the largest of which which correlates with x-ray finding on mammography has cortex up to 2.5-3 mm. No suspicious masses definitively visualized. Short-term follow-up recommended for these findings. The whole breast was interrogated by ultrasound without mass visualized. Overall Assessment: Probably benign, BI-RAD 3 Management: Diagnostic Mammogram of the left breast in 3 months. Diagnostic Breast Ultrasound of the left breast in 3 months. Enlarged lymph nodes seen on same date diagnostic mammogram are not significantly changed from immediate prior mammogram. Lymph nodes on ultrasound imaging have cortices within normal limits for thickness. Further evaluation with CT chest with IV contrast recommended to rule out any other processes in the chest such as malignancy. A clinical breast exam by your physician is recommended on an annual basis and results should be correlated with mammographic findings. This exam should not preclude additional follow-up of suspicious palpable abnormalities. Results were given to the patient verbally at the time of exam. [facility], , 06/25/2024 11:54 AM A Yellow level critical message alert has been initiated for Aileen Torres MD via the mChron MD via the preferences provided by the clinician for the receipt of Radiology Critical Findings. Message ID [id number]. Electronically signed and approved by: Raphael Saravia DO
== END | disposition home or self-care (01) ==
LOC: RADMAMWWP 10:22
PROVIDERS: ATTEND Internal Medicine
CPT/HCPCS: 77061; 77065

== ENCOUNTER → 2024-07-05 | Outpatient (CLI) | payer BC, OTHER ==
--- NOTE | 2024-07-05 13:19 | CT ---
EXAMINATION TYPE: CT chest w con CT DLP: 204.9 mGycm, Automated exposure control for dose reduction was used. DATE OF EXAM: 07/05/2024 12:49 PM COMPARISON: CT chest abdomen and pelvis 10/16/2011, chest radiograph 01/25/2024, CT abdomen and pelvis . CLINICAL INDICATION:Female, 64 years old with history of R59.9 ENLARGED LYMPH NODES, UNSPECIFIED; PHH , lung nodule TECHNIQUE: Multiple axial images were obtained through the chest following the administration of 100 cc of Isovue 300. . Coronal and sagittal reformats reviewed. FINDINGS: LUNGS/ PLEURA: No pleural effusion, pneumothorax, or focal consolidation. Right middle lobe 8 mm chantal undglass nodular density abutting the minor fissure (series 4, image 33). Right upper lobe solid 2.7 mm pulmonary nodule (series 4, image 32). Stable from prior exam and consider benign. Anterior periph eral left upper lobe 2 mm pulmonary nodule (series 4, image 28). Stable prior exam except for benign. Left lower lobe peripheral 2.1 mm pulmonary nodule (series 4, image 38). AIRWAY: Patent and unremarkable.. HEART: Size within normal limits. No pericardial effusion. MEDIASTINUM: No evidence of adenopathy. VASCULATURE: Four-vessel aortic arch. MUSCULOSKELETAL: Mild disc degeneration changes are present throughout the thoracolumbar spine. No ac king salmon osseous abnormality. Remote posterior right 10th rib fracture. SOFT TISSUES/LYMPH NODES: Mildly prominent bilateral axillary lymph nodes are demonstrated with large st in the right axilla measuring 6, short axis and largest within the left axilla measuring up to 1.1 cm short axis with central fatty hilum demonstrated. LOWER NECK: No significant findings. UPPER ABDOMEN: Dilated partially visualized extrahepatic and common bile duct measuring 9 mm in the p ancreatic head. There is a 4 mm calcification which may be within the cystic duct. IMPRESSION: 1. No acute thoracic process. 2. Benign appearing mildly prominent bilateral axillary lymph nodes. 3. Few scattered pulmonary nodules within 8 mm groundglass nodule. Follow-up CT chest in 3-6 months i s recommended. 4. Partial visualization of dilated intra and extra hepatic biliary ducts with possible calculus with in the cystic duct. Correlation with biliary obstructive labs is recommended. Consider further evalua tion with MRCP. [facility], , 07/05/2024 1:17 PM
== END | disposition home or self-care (01) ==
LOC: RADCTMAIN 12:10
PROVIDERS: ATTEND Internal Medicine
DX: R91.8 Other nonspecific abnormal finding of lung field (principal)
CPT/HCPCS: 71260

== ENCOUNTER → 2024-08-21 | Outpatient (CLI) | payer BC, OTHER ==
[2024-08-21 15:50] LABS: Basophils # (A) 0.07 X 10*3/uL (0.00-0.10); Basophils % (A) 0.7 %; Eosinophils # (A) 0.32 X 10*3/uL (0.04-0.35); Eosinophils % (A) 3.3 %; HCT 45.7 % (37.2-46.3); HGB 15.4 g/dL (12.0-15.0); Lymphocytes # (A) 2.05 X 10*3/uL (0.90-5.00); MCH 29.8 pg (27.0-32.0); MCHC 33.7 g/dL (32.0-37.0); MCV 88.6 FL (80.0-97.0); Mean Platelet Volume 10.6 FL (9.5-12.2); Monocytes # (A) 0.57 X 10*3/uL (0.20-1.00); Monocytes % (A) 5.9 %; NRBC Per 100 WBC 0 X 10*3/uL (0.00-0.01); Neutrophils # (A) 6.71 X 10*3/uL (1.80-7.70); Neutrophils % (A) 68.9 %; Platelet Count 209 X 10*3/uL (140-440); RBC 5.16 X 10*6/uL (4.10-5.20); RDW 12.9 % (11.5-14.5); WBC 9.74 X 10*3/uL (4.50-10.00)
[2024-08-21 18:15] LABS: ALT 31 U/L (8-44); AST 27 U/L (13-35); Albumin 4.7 g/dL (3.8-4.9); Albumin/Globulin Ratio 1.68 Ratio (1.60-3.17); Alkaline Phosphatase 72 U/L (41-126); BUN/Creat Ratio 18.14 Ratio (12.00-20.00); Blood Urea Nitrogen 12.7 mg/dL (9.0-27.0); Carbon Dioxide 26.9 mmol/L (21.6-31.8); Chloride 100 mmol/L (96-109); Globulin 2.8 g/dL (1.6-3.3); Glucose 99 mg/dL (70-110); Potassium 5.2 mmol/L (3.5-5.5); Sodium 137 mmol/L (135-145); Total Bilirubin 0.4 mg/dL (0.3-1.2); Total Protein 7.5 g/dL (6.2-8.2)
== END | disposition home or self-care (01) ==
LOC: LABWHC1 08:37
PROVIDERS: ATTEND Internal Medicine Gastroenterology
DX: K83.8 Other specified diseases of biliary tract (principal)
CPT/HCPCS: 36415; 80053; 85025

== ENCOUNTER → 2024-08-21 | Outpatient (CLI) | payer BC, OTHER ==
--- NOTE | 2024-08-21 09:52 | MR ---
MR MRCP INDICATION: Patient age:Female; 64 years old; Reason for study: K83.8 Other specified disease of biliary tract; [facility]. COMPARISON: CT chest 07/05/2024, CT abdomen and pelvis 01/05/2024. TECHNIQUE: Multi planar, T2-weighted imaging with and without fat saturation and chemical shift imag ing was performed of the abdomen. Then, heavily T2 weighted imaging was utilized in order to study th e biliary system. Maximum intensity projection images were reconstructed from the original data of t he biliary tree. No Gadolinium given. FINDINGS: MRCP: The common bile duct at the level of the pancreatic head measures 7 mm in size. The common hep atic duct measures 8 mm in size. There is no intra or extrahepatic biliary ductal dilatation. There i s no filling defect, stricture, obstructing lesion or biliary wall thickening identified. The pancrea tic duct is normal. The gallbladder is surgically absent. Abdomen: The spleen, adrenal glands, kidneys, and pancreas have a normal noncontrast appearance. Ther e is a 1 cm cyst identified in the left hepatic lobe. No fatty infiltration or cirrhotic morphology o f the liver. IMPRESSION: Post cholecystectomy changes without evidence of biliary dilatation, stricture, filling defect, wall thickening or obstructing mass lesion. [facility], , 08/21/2024 9:50 AM
== END | disposition home or self-care (01) ==
LOC: RADMRIMAIN 07:02
PROVIDERS: ATTEND Internal Medicine Gastroenterology
DX: K83.8 Other specified diseases of biliary tract (principal); Z90.49 Acquired absence of other specified parts of digestive tract
CPT/HCPCS: 74181

== ENCOUNTER 2024-09-14 02:15 | Emergency (ER) | payer BC, OTHER ==
[2024-09-14] MEDS ORDERED: LORazepam 2 MG/ML INJ IV PRN ×3 (02:30)
--- NOTE | 2024-09-14 02:34 | ED ---
Abdominal Pain HPI - General Source: patient, EMS, RN notes reviewed, old records reviewed Mode of arrival: EMS Limitations: no limitations <Consuelo Wolfe - Last Filed: 09/14/24 04:02> <Carlene Tomas - Last Filed: 09/14/24 07:31> - General Chief Complaint: Abdominal Pain Stated Complaint: Abdominal Pain Time Seen by Provider: 09/14/24 02:31 - History of Present Illness Initial Comments: 64-year-old female presented to the ER via EMS for evaluation of abdominal pain. Patient reports for the past 3 to 4 days she has been having severe epigastric abdominal discomfort along with nausea and vomiting. She has been unable to keep food or liquids down. She states she will fill half a 13 gallon garbage can. As she has been vomiting into a garbage can she is unaware of hematic emesis, coffee-ground emesis. No history of pancreatitis or diverticulitis. Patient also admits to incontinence but states is a chronic issue as she wears depends. No constipation or diarrhea. Patient does have a history of alcohol abuse and states she had a relapse this evening. She states she drank a half a pint of vodka. Patient that she was sober for approximately 7 months until this evening. No other drug use. 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 No fevers, cough, congestion, chest pain, shortness of breath or peripheral edema. Patient was given 4 mg Zofran by EMS. Patient also states she had a recent MRI with Dr. Samayoa as she has had 3 enlarged axillary lymph nodes. 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 She is currently being worked up outpatient for this. (Consuelo Wolfe) - Related Data Home Medications Medication Instructions Recorded Confirmed Cholecalciferol [Vitamin D3 (25 50 mcg PO DIRECTED 02/02/24 02/02/24 Mcg = 1000 Iu)] Folic Acid-Vit B Complex-Vit C 1 cap PO DIRECTED 02/02/24 02/02/24 [Nephrocaps] Magnesium Oxide [Mag-Ox] 400 mg PO DIRECTED 02/02/24 02/02/24 Mirtazapine [Remeron] 15 mg PO DIRECTED 02/02/24 02/02/24 Multivitamins, Thera [Multivitamin 1 tab PO DIRECTED 02/02/24 02/02/24 (formulary)] PARoxetine [Paxil] 10 mg PO DIRECTED 02/02/24 02/02/24 Thiamine [Vitamin B-1] 100 mg PO DIRECTED 02/02/24 02/02/24 hydrALAZINE HCL [Apresoline] 25 mg PO DIRECTED 02/02/24 02/02/24 hydrOXYzine HCL [Atarax] 25 mg PO DIRECTED PRN 02/02/24 02/02/24 Previous Rx's Medication Instructions Recorded LORazepam [Ativan] 0.5 mg PO TID PRN 3 Days #9 tab 02/07/24 hydrOXYzine HCL [Atarax] 25 mg PO TID PRN #15 tab 03/25/24 methylPREDNISolone Dose Pack 4 mg PO DIRECTED #1 packet 03/25/24 [Medrol Dose Pack] Cephalexin [Keflex] 500 mg PO Q12HR 7 Days #14 cap 09/14/24 Allergies Allergy/AdvReac Type Severity Reaction Status Date / Time shellfish derived [Shellfish] Allergy Severe Dyspnea Verified 09/14/24 02:26 iodine Allergy Rash/Hives Verified 09/14/24 02:26 Sulfa (Sulfonamide Allergy Rash/Hives Verified 09/14/24 02:26 Antibiotics) Review of Systems ROS Other: All systems not noted in ROS Statement are negative. <Consuelo Wolfe - Last Filed: 09/14/24 04:02> ROS Other: All systems not noted in ROS Statement are negative. <Carlene Tomas - Last Filed: 09/14/24 07:31> ROS Statement: Those systems with pertinent positive or pertinent negative responses have been documented in the HPI. 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 History of Any Multi-Drug Resistant Organisms: None Reported Past Surgical History: AICD, Back Surgery Additional Past Surgical History / Comment(s): Cervical surgery at [facility] d/t injury, colonoscopies/benign polypectomy Past Anesthesia/Blood Transfusion Reactions: No Reported Reaction, Motion Sickne ss Additional Past Anesthesia/Blood Transfusion Reaction / Comment(s): PT has clausterphobia. Type of Cardiac Device: AICD Device Placement Date:: unknown Past Psychological History: Anxiety Smoking Status: Current some day smoker Past Alcohol Use History: Abuse, Daily, Heavy Past Drug Use History: None Reported - Past Family History Mother Family Medical History: Cancer Additional Family Medical History / Comment(s): Mother of melanoma Father Family Medical History: No Reported History Additional Family Medical History / Comment(s): Father is healthy <Consuelo Wolfe - Last Filed: 09/14/24 04:02> General Exam Limitations: no limitations General appearance: alert, in no apparent distress, appears intoxicated Respiratory exam: Present: normal lung sounds bilaterally. Absent: respiratory distress, wheezes, rales, rhonchi, stridor Cardiovascular Exam: Present: regular rate, normal rhythm, normal heart sounds. Absent: systolic murmur, diastolic murmur, rubs, gallop, clicks GI/Abdominal exam: Present: soft, tenderness (Epigastric), normal bowel sounds Neurological exam: Present: alert, oriented X3 Skin exam: Present: warm, dry, intact, normal color. Absent: rash <Consuelo Wolfe - Last Filed: 09/14/24 04:02> Course Vital Signs 09/14/24 09/14/24 02:18 06:59 Temperature 98.3 F 98.4 F Pulse Rate 101 H 90 Respiratory 19 18 Rate Blood Pressure 102/68 116/70 O2 Sat by Pulse 99 97 Oximetry Medical Decision Making - Lab Data Result diagrams: 09/14/24 02:55 09/14/24 02:55 <Consuelo Wolfe - Last Filed: 09/14/24 04:02> - Lab Data Result diagrams: 09/14/24 02:55 09/14/24 06:11 <Carlene Tomas - Last Filed: 09/14/24 07:31> - Medical Decision Making Was pt. sent in by a medical professional or institution (, PA, MARINE INSULATOR, urgent care, hospital, or long-term...) When possible be specific @ -[No] Did you speak to anyone other than the patient for history (EMS, parent, family, police, friend...)? What history was obtained from this source @ -[No] Did you review nursing and triage notes (agree or disagree)? Why? @ -[I reviewed and agree with nursing and triage notes] Were old charts reviewed (outside hosp., previous admission, EMS record, old EKG, old radiological studies, urgent care reports/EKG's, long-term records)? Report findings @ -[No old charts were reviewed] Differential Diagnosis (chest pain, altered mental status, abdominal pain women, abdominal pain men, vaginal bleeding, weakness, fever, dyspnea, syncope, headache, dizziness, GI bleed, back pain, seizure, CVA, palpatations, mental health, musculoskeletal)? @ -Differential Abdominal Pain Women:Appendicitis, Cholecystitis, diverticulosis, ischemic bowel, pancreatitis, hepatitis, UTI, gastroenteritis, AAA, incarcerated hernia, bowel obstruction, constipation, inflammatory bowel, hepatitis, peptic ulcer disease, splenic infarction, perforated viscus, vulvitis, ovarian torsion, PID, kidney stone, placenta abruption, this is not meant to be an all-inclusive list EKG interpreted by me (3pts min.). @ -None done] X-rays interpreted by me (1pt min.). @ -[None done] CT interpreted by me (1pt min.). @ -[None done] U/S interpreted by me (1pt. min.). @ -[None done] What testing was considered but not performed or refused? (CT, X-rays, U/S, labs)? Why? @ -Zofran considered not given as patient received 4 mg from EMS en route. What meds were considered but not given or refused? Why? @ -[None] Did you discuss the management of the patient with other professionals (professionals i.e. , PA, MARINE INSULATOR, lab, RT, psych nurse, social media intern, inspector of dredging, teacher, special loan officer, case investigator)? Give summary @ -[No] Was smoking cessation discussed for >3mins.? @ -[No] Was critical care preformed (if so, how long)? @ -[No] Were there social determinants of health that impacted care today? How? (Homelessness, low income, unemployed, alcoholism, drug addiction, transportation, low edu. Level, literacy, decrease access to med. care, intermediate, rehab)? @ -Alcoholism Was there de-escalation of care discussed even if they declined (Discuss DNR or withdrawal of care, Hospice)? DNR status @ -[No] What co-morbidities impacted this encounter? (DM, HTN, Smoking, COPD, CAD, Cancer, CVA, ARF, Chemo, Hep., AIDS, mental health diagnosis, sleep apnea, morbid obesity)? @ -Alcoholism, Was patient admitted / discharged? Hospital course, mention meds given and route, prescriptions, significant lab abnormalities, going to OR and other pertinent info. @ -54 female presented to ER for evaluation of nausea vomiting abdominal pain. History and physical exam completed. Vitals within normal limits. Patient appears intoxicated on exam no signs of acute distress. Mild epigastric abdomi nal tenderness. Normal bowel sounds with no rebound or guarding. Laboratory studies obtained. Hemoconcentrated with hemoglobin 17.8, lactic 3.3. Transaminitis likely associated alcohol use. Serum alcohol 177, lipase 195, amylase 79. Patient given 2 L IV fluid bolus, thiamine, Toradol. Patient also started on CIWA and Ativan protocol as she reports history of withdrawal seizures. CT abdomen pelvis pending at time of signout to Dr. Tomas at shift completion. (Consuelo Wolfe) EKG interpretation, sinus rhythm, rate 88 beats minute, OH normal 1 3 3 ms QT/QTc 400/445 ms, normal axis, no ST elevations or depressions. Reviewed CT scan, I see no evidence of obstruction, perforation, free air or other acute process. My assessment patient is sleeping comfortably. She states her nausea is controlled, was able to drink fluids. We discussed obtaining repeat labs to ensure improvement of labs and pending CT scan but anticipated discharge. Patient agreeable with plan of care. Repeat labs reviewed, improved. Her lactic is coming down to 2.6. I suspect secondary to patient's alcohol intoxication. Patient is currently tolerating juice and a sandwich. Plan for discharge. (Carlene Tomas) - Lab Data Lab Results 09/14/24 09/14/24 09/14/24 Range/Units 02:55 02:55 02:55 WBC 10.1 (3.8-10.6) k/uL RBC 5.58 H (3.80-5.40) m/uL Hgb 17.8 H (11.4-16.0) gm/dL Hct 50.2 H (34.0-46.0) % MCV 90.1 (80.0-100.0) fL MCH 31.9 (25.0-35.0) pg MCHC 35.4 (31.0-37.0) g/dL RDW 13.2 (11.5-15.5) % Plt Count 169 (150-450) k/uL MPV 8.1 Neutrophils % 61 % Lymphocytes % 28 % Monocytes % 7 % Eosinophils % 1 % Basophils % 1 % Neutrophils # 6.2 (1.3-7.7) k/uL Lymphocytes # 2.8 (1.0-4.8) k/uL Monocytes # 0.7 (0-1.0) k/uL Eosinophils # 0.1 (0-0.7) k/uL Basophils # 0.1 (0-0.2) k/uL Sodium 130 L (137-145) mmol/L Potassium 5.4 H (3.5-5.1) mmol/L Chloride 90 L (98-107) mmol/L Carbon Dioxide 16 L (22-30) mmol/L Anion Gap 24 mmol/L BUN 25 H (7-17) mg/dL Creatinine 0.65 (0.52-1.04) mg/dL Est GFR (CKD-EPI)AfAm >90 (>60 ml/min/1.73 sqM) Est GFR (CKD-EPI)NonAf >90 (>60 ml/min/1.73 sqM) Glucose 101 H (74-99) mg/dL Lactic Ac Sepsis Rflx Plasma Lactic Acid Samuel 3.3 H* (0.7-2.0) mmol/L Calcium 10.7 H (8.4-10.2) mg/dL Magnesium (1.6-2.3) mg/dL Total Bilirubin 1.5 H (0.2-1.3) mg/dL AST 53 H (14-36) U/L ALT 37 H (4-34) U/L Alkaline Phosphatase 103 (38-126) U/L Total Protein 10.6 H (6.3-8.2) g/dL Albumin 5.9 H (3.5-5.0) g/dL Amylase 79 (30-110) U/L Lipase 195 (23-300) U/L Urine Color Urine Appearance (Clear) Urine pH (5.0-8.0) Ur Specific [place] (1.001-1.035) Urine Protein (Negative) Urine Glucose (UA) (Negative) Urine Ketones (Negative) Urine Blood (Negative) Urine Nitrite (Negative) Urine Bilirubin (Negative) Urine Urobilinogen (<2.0) mg/dL Ur Leukocyte Esterase (Negative) Urine RBC (0-5) /hpf Urine WBC (0-5) /hpf Urine WBC Clumps (None) /hpf Ur Squamous Epith Cells (0-4) /hpf Urine Bacteria (None) /hpf Urine Mucus (None) /hpf Urine Opiates Screen (NotDetected) Ur Oxycodone Screen (NotDetected) Urine Methadone Screen (NotDetected) Ur Barbiturates Screen (NotDetected) U Tricyclic Antidepress (NotDetected) Ur Phencyclidine Scrn (NotDetected) Ur Amphetamines Screen (NotDetected) U Methamphetamines Scrn (NotDetected) U Benzodiazepines Scrn (NotDetected) Urine Cocaine Screen (NotDetected) U Marijuana (THC) Screen (NotDetected) Serum Alcohol 177 mg/dL 09/14/24 09/14/24 09/14/24 Range/Units 02:55 03:33 04:33 WBC (3.8-10.6) k/uL RBC (3.80-5.40) m/uL Hgb (11.4-16.0) gm/dL Hct (34.0-46.0) % MCV (80.0-100.0) fL MCH (25.0-35.0) pg MCHC (31.0-37.0) g/dL RDW (11.5-15.5) % Plt Count (150-450) k/uL MPV Neutrophils % % Lymphocytes % % Monocytes % % Eosinophils % % Basophils % % Neutrophils # (1.3-7.7) k/uL Lymphocytes # (1.0-4.8) k/uL Monocytes # (0-1.0) k/uL Eosinophils # (0-0.7) k/uL Basophils # (0-0.2) k/uL Sodium (137-145) mmol/L Potassium (3.5-5.1) mmol/L Chloride (98-107) mmol/L Carbon Dioxide (22-30) mmol/L Anion Gap mmol/L BUN (7-17) mg/dL Creatinine (0.52-1.04) mg/dL Est GFR (CKD-EPI)AfAm (>60 ml/min/1.73 sqM) Est GFR (CKD-EPI)NonAf (>60 ml/min/1.73 sqM) Glucose (74-99) mg/dL Lactic Ac Sepsis Rflx Y Plasma Lactic Acid Samuel (0.7-2.0) mmol/L Calcium (8.4-10.2) mg/dL Magnesium 2.0 (1.6-2.3) mg/dL Total Bilirubin (0.2-1.3) mg/dL AST (14-36) U/L ALT (4-34) U/L Alkaline Phosphatase (38-126) U/L Total Protein (6.3-8.2) g/dL Albumin (3.5-5.0) g/dL Amylase (30-110) U/L Lipase (23-300) U/L Urine Color Light Yellow Urine Appearance Turbid H (Clear) Urine pH 7.0 (5.0-8.0) Ur Specific [place] 1.014 (1.001-1.035) Urine Protein 1+ H (Negative) Urine Glucose (UA) Negative (Negative) Urine Ketones Negative (Negative) Urine Blood Moderate H (Negative) Urine Nitrite Negative (Negative) Urine Bilirubin Negative (Negative) Urine Urobilinogen <2.0 (<2.0) mg/dL Ur Leukocyte Esterase Large H (Negative) Urine RBC 65 H (0-5) /hpf Urine WBC >182 H (0-5) /hpf Urine WBC Clumps Many H (None) /hpf Ur Squamous Epith Cells 4 (0-4) /hpf Urine Bacteria Moderate H (None) /hpf Urine Mucus Rare H (None) /hpf Urine Opiates Screen (NotDetected) Ur Oxycodone Screen (NotDetected) Urine Methadone Screen (NotDetected) Ur Barbiturates Screen (NotDetected) U Tricyclic Antidepress (NotDetected) Ur Phencyclidine Scrn (NotDetected) Ur Amphetamines Screen (NotDetected) U Methamphetamines Scrn (NotDetected) U Benzodiazepines Scrn (NotDetected) Urine Cocaine Screen (NotDetected) U Marijuana (THC) Screen (NotDetected) Serum Alcohol mg/dL 09/14/24 09/14/24 09/14/24 Range/Units 04:33 06:11 06:11 WBC (3.8-10.6) k/uL RBC (3.80-5.40) m/uL Hgb (11.4-16.0) gm/dL Hct (34.0-46.0) % MCV (80.0-100.0) fL MCH (25.0-35.0) pg MCHC (31.0-37.0) g/dL RDW (11.5-15.5) % Plt Count (150-450) k/uL MPV Neutrophils % % Lymphocytes % % Monocytes % % Eosinophils % % Basophils % % Neutrophils # (1.3-7.7) k/uL Lymphocytes # (1.0-4.8) k/uL Monocytes # (0-1.0) k/uL Eosinophils # (0-0.7) k/uL Basophils # (0-0.2) k/uL Sodium 132 L (137-145) mmol/L Potassium 4.0 (3.5-5.1) mmol/L Chloride 101 (98-107) mmol/L Carbon Dioxide 15 L (22-30) mmol/L Anion Gap 16 mmol/L BUN 21 H (7-17) mg/dL Creatinine 0.57 (0.52-1.04) mg/dL Est GFR (CKD-EPI)AfAm >90 (>60 ml/min/1.73 sqM) Est GFR (CKD-EPI)NonAf >90 (>60 ml/min/1.73 sqM) Glucose 82 (74-99) mg/dL Lactic Ac Sepsis Rflx Plasma Lactic Acid Samuel 2.6 H* (0.7-2.0) mmol/L Calcium 8.9 (8.4-10.2) mg/dL Magnesium (1.6-2.3) mg/dL Total Bilirubin (0.2-1.3) mg/dL AST (14-36) U/L ALT (4-34) U/L Alkaline Phosphatase (38-126) U/L Total Protein (6.3-8.2) g/dL Albumin (3.5-5.0) g/dL Amylase (30-110) U/L Lipase (23-300) U/L Urine Color Urine Appearance (Clear) Urine pH (5.0-8.0) Ur Specific [place] (1.001-1.035) Urine Protein (Negative) Urine Glucose (UA) (Negative) Urine Ketones (Negative) Urine Blood (Negative) Urine Nitrite (Negative) Urine Bilirubin (Negative) Urine Urobilinogen (<2.0) mg/dL Ur Leukocyte Esterase (Negative) Urine RBC (0-5) /hpf Urine WBC (0-5) /hpf Urine WBC Clumps (None) /hpf Ur Squamous Epith Cells (0-4) /hpf Urine Bacteria (None) /hpf Urine Mucus (None) /hpf Urine Opiates Screen Not Detected (NotDetected) Ur Oxycodone Screen Not Detected (NotDetected) Urine Methadone Screen Not Detected (NotDetected) Ur Barbiturates Screen Not Detected (NotDetected) U Tricyclic Antidepress Not Detected (NotDetected) Ur Phencyclidine Scrn Not Detected (NotDetected) Ur Amphetamines Screen Not Detected (NotDetected) U Methamphetamines Scrn Not Detected (NotDetected) U Benzodiazepines Scrn Not Detected (NotDetected) Urine Cocaine Screen Not Detected (NotDetected) U Marijuana (THC) Screen Not Detected (NotDetected) Serum Alcohol mg/dL Disposition <Consuelo Wolfe - Last Filed: 09/14/24 04:02> Is patient prescribed a controlled substance at d/c from ED?: No <Carlene Tomas - Last Filed: 09/14/24 07:31> Clinical Impression: Nausea & vomiting, Alcohol intoxication, Urinary tract infection Disposition: HOME SELF-CARE Condition: Good Instructions (If sedation given, give patient instructions): Acute Nausea and Vomiting (ED) Additional Instructions: Every disease is a spectrum and a small chance still exists that a serious condition could develop, for this reason, please monitor yourself closely for new, changing or worsening symptoms, symptoms that persist beyond 48 hours, fever, inability to tolerate/keep down fluids or your medications, inability to follow up with outpatient providers as instructed and should you experience these symptoms or should you have any further concerns for your wellbeing please return to the ED or call 911 immediately. PLEASE call your primary care physician as soon as possible to arrange / discuss plan for followup appointment. Appointment in the next 1-3 days is strongly encouraged if possible. PLEASE let us know here before you leave if there is anything further we can do to be of any assistance. Take care and feel Better! Prescriptions: Cephalexin [Keflex] 500 mg PO Q12HR 7 Days #14 cap Referrals: Aileen Torres MD [Primary Care Provider] - 1-2 days
[2024-09-14] MEDS: THIAMINE 100 MG/ML 2 ML VIAL IM STA (02:48)
[2024-09-14] MEDS: SODIUM CHLORIDE 0.9% 1,000 ML IV STA ×2 (02:49→04:23)
[2024-09-14 03:08] LABS: Basophils # (A) 0.1 k/uL (0-0.2); Basophils % (A) 1 %; Eosinophils # (A) 0.1 k/uL (0-0.7); Eosinophils % (A) 1 %; HCT 50.2 % (34.0-46.0); HGB 17.8 gm/dL (11.4-16.0); Lymphocytes # (A) 2.8 k/uL (1.0-4.8); Lymphocytes % (A) 28 %; MCH 31.9 pg (25.0-35.0); MCHC 35.4 g/dL (31.0-37.0); MCV 90.1 fL (80.0-100.0); Mean Platelet Volume 8.1; Monocytes # (A) 0.7 k/uL (0-1.0); Monocytes % (A) 7 %; Neutrophils # (A) 6.2 k/uL (1.3-7.7); Neutrophils % (A) 61 %; Platelet Count 169 k/uL (150-450); RBC 5.58 m/uL (3.80-5.40); RDW 13.2 % (11.5-15.5); WBC 10.1 k/uL (3.8-10.6)
[2024-09-14 03:30] LABS: ALT 37 U/L (4-34); AST 53 U/L (14-36); African American GFR (CKD) >90 (>60 ml/min/1.73 sqM); Albumin 5.9 g/dL (3.5-5.0); Alkaline Phosphatase 103 U/L (38-126); Amylase 79 U/L (30-110); Anion Gap 24 mmol/L; Blood Urea Nitrogen 25 mg/dL (7-17); Calcium 10.7 mg/dL (8.4-10.2); Carbon Dioxide 16 mmol/L (22-30); Chloride 90 mmol/L (98-107); Glucose 101 mg/dL (74-99); Lipase 195 U/L (23-300); Non-African American GFR(CKD) >90 (>60 ml/min/1.73 sqM); Potassium 5.4 mmol/L (3.5-5.1); Sodium 130 mmol/L (137-145); Total Bilirubin 1.5 mg/dL (0.2-1.3); Total Protein 10.6 g/dL (6.3-8.2)
[2024-09-14 03:34] LABS: Alcohol 177 mg/dL
[2024-09-14] MEDS: KETOROLAC 15 MG/ML 1 ML VIAL IVP STA (04:20)
[2024-09-14 04:47] LABS: Appearance,Urine Turbid (Clear); Bacteria,Urine Moderate /hpf; Bilirubin,Urine Negative (Negative); Blood,Urine Moderate (Negative); Color,Urine Light Yellow; Glucose,Urine (UA) Negative (Negative); Ketones,Urine Negative (Negative); Leukocyte Esterase,Urine Large (Negative); Mucus,Urine Rare /hpf; Nitrite,Urine Negative (Negative); Protein,Urine 1+ (Negative); RBC,Urine 65 /hpf (0-5); Specific Gravity,Urine 1.014 (1.001-1.035); Squamous Epithelial Cell,Urine 4 /hpf (0-4); Urobilinogen,Urine <2.0 mg/dL (<2.0); WBC,Urine >182 /hpf (0-5)
[2024-09-14 04:55] LABS: Amphetamine Screen,Urine Not Detected (NotDetected); Barbiturate Screen,Urine Not Detected (NotDetected); Benzodiazepines Screen,Urine Not Detected (NotDetected); Cocaine Screen,Urine Not Detected (NotDetected); Methadone Screen, Urine Not Detected (NotDetected); Opiate Screen,Urine Not Detected (NotDetected); Oxycodone Screen, Urine Not Detected (NotDetected); Phencyclidine Screen,Urine Not Detected (NotDetected); Tricyclic Antidepressant,Urine Not Detected (NotDetected); Urn Cannabinoid Scrn Not Detected (NotDetected)
[2024-09-14] MEDS: CEFEPIME 1 GM in SODIUM CHLORIDE 0.9% 50 ML IVPB STA (06:13)
[2024-09-14 07:00] VITALS: TEMP 98.4
[2024-09-14 07:00] LABS: African American GFR (CKD) >90 (>60 ml/min/1.73 sqM); Anion Gap 16 mmol/L; Blood Urea Nitrogen 21 mg/dL (7-17); Calcium 8.9 mg/dL (8.4-10.2); Carbon Dioxide 15 mmol/L (22-30); Chloride 101 mmol/L (98-107); Glucose 82 mg/dL (74-99); Non-African American GFR(CKD) >90 (>60 ml/min/1.73 sqM); Sodium 132 mmol/L (137-145)
--- NOTE | 2024-09-14 07:57 | CT ---
EXAMINATION TYPE: CT abdomen pelvis wo con DATE OF EXAM: 09/14/2024 4:59 AM COMPARISON: None. CLINICAL INDICATION: Female, 64 years old with history of abd pain, nv abdominal pain hx of etoh abus e TECHNIQUE: Axial images were obtained from above the diaphragm to the pubic rami in the axial plane a t 5 mm thick sections. Reconstructed images are reviewed on the computer in the coronal plane. CONTRAST: mL of . Study performed without Oral Contrast DLP: 465.8 mGycm, Automated exposure control for dose reduction was used. FINDINGS: Limited CT sections are obtained the lung bases. The lung bases are clear. CT ABDOMEN: Liver: Normal Spleen: Normal Pancreas: Normal Adrenal glands: The adrenal glands are normal. Gallbladder: Surgically absent Kidneys: No masses are evident. No hydronephrosis is present. No cysts are present. Punctate nonob structing renal stones at the inferior pole right kidney Aorta: Vascular calcification is within the aorta. Inferior vena cava: Normal. CT PELVIS: Loops of bowel within the abdomen and pelvis are normal. This study is without oral contrast limi ting bowel evaluation Appendix: Normal as visualized. Urinary bladder: Normal. Genitourinary structures: Uterus is unremarkable. Adnexa are normal Osseous structures: No suspicious lytic or sclerotic lesions. IMPRESSION: 1. No suspicious abnormalities to account for abdomen pain. 2. Nonobstructing inferior pole right renal stone [facility] Sandi Bliss, , 09/14/2024 7:55 AM
[2024-09-14] MEDS: ONDANSETRON 4 MG ODT STARTER PACK 2 TAB BTL PO STA (08:20)
[2024-09-14] MEDS: ONDANSETRON 4 MG/2 ML VIAL IVP STA (08:20)
[2024-09-14 08:35] VITALS: BP 124/84; PULSE 92; RESP 20
== END 2024-09-14 08:35 | disposition home or self-care (01) ==
LOC: EC 02:15
DX: F17.200 Nicotine dependence, unspecified, uncomplicated (principal); Z91.013 Allergy to seafood; Z91.041 Radiographic dye allergy status; Z88.2 Allergy status to sulfonamides; R11.2 Nausea with vomiting, unspecified; F10.129 Alcohol abuse with intoxication, unspecified; N39.0 Urinary tract infection, site not specified
CPT/HCPCS: 36415; 80053; 80048; 82150; 83605; 83690; 83735; 85025; 81001; 80306; 80320; 87086; 74176; 99284; 96365; 96375; 96361; J3411; J2405; J0692; J1885; S0119

== ENCOUNTER → 2024-10-10 | Outpatient (CLI) | payer BC, OTHER ==
[2024-10-10 16:18] LABS: ALT 17 U/L (8-44); AST 20 U/L (13-35)
[2024-10-10 16:46] LABS: Basophils # (A) 0.07 X 10*3/uL (0.00-0.10); Eosinophils # (A) 0.32 X 10*3/uL (0.04-0.35); Eosinophils % (A) 4.4 %; HGB 13.3 g/dL (12.0-15.0); Lymphocytes # (A) 1.85 X 10*3/uL (0.90-5.00); Lymphocytes % (A) 25.5 %; MCH 31.6 pg (27.0-32.0); MCHC 33.3 g/dL (32.0-37.0); Mean Platelet Volume 10.8 FL (9.5-12.2); Monocytes # (A) 0.49 X 10*3/uL (0.20-1.00); Monocytes % (A) 6.8 %; NRBC Per 100 WBC 0 X 10*3/uL (0.00-0.01); Neutrophils # (A) 4.49 X 10*3/uL (1.80-7.70); Neutrophils % (A) 61.9 %; Platelet Count 228 X 10*3/uL (140-440); RBC 4.21 X 10*6/uL (4.10-5.20); RDW 14.4 % (11.5-14.5); WBC 7.25 X 10*3/uL (4.50-10.00)
== END | disposition home or self-care (01) ==
LOC: LABWHC1 11:32
PROVIDERS: ATTEND Nurse Practitioner
DX: L65.9 Nonscarring hair loss, unspecified (principal); L20.89 Other atopic dermatitis
CPT/HCPCS: 36415; 84450; 84460; 85025

== ENCOUNTER 2024-10-31 02:23 | Emergency (ER) | payer BC, OTHER ==
[2024-10-31 02:31] VITALS: TEMP 97.7
--- NOTE | 2024-10-31 02:34 | ED ---
Alcohol HPI - General Chief Complaint: Nausea/Vomiting/Diarrhea Stated Complaint: ETOH Time Seen by Provider: 10/31/24 02:32 Source: patient, RN notes reviewed, old records reviewed Mode of arrival: EMS Limitations: no limitations, language barrier, altered mental status, physical limitation - History of Present Illness Initial Comments: This is a 64-year-old female presenting by EMS for nausea vomiting concern for dehydration. Patient has some abdominal pain but because EMS with concerns of vomiting. Patient is in does appear to be in extremely intoxicated When patient is brought back into the room patient does have vomiting active vomiting does appear to be bloody vomitus MD Complaint: alcohol intoxication Last Drink: just HOSPITALITY INTERN -: minute(s) Previous Visits for Alcohol Intoxication?: Yes Recent Trauma: Yes Associated Symptoms: nausea, vomiting Treatments Prior to Arrival: none Chronic Alcohol Use: Yes - Related Data Home Medications Medication Instructions Recorded Confirmed Cholecalciferol [Vitamin D3 (25 50 mcg PO DIRECTED 02/02/24 02/02/24 Mcg = 1000 Iu)] Folic Acid-Vit B Complex-Vit C 1 cap PO DIRECTED 02/02/24 02/02/24 [Nephrocaps] Magnesium Oxide [Mag-Ox] 400 mg PO DIRECTED 02/02/24 02/02/24 Mirtazapine [Remeron] 15 mg PO DIRECTED 02/02/24 02/02/24 Multivitamins, Thera [Multivitamin 1 tab PO DIRECTED 02/02/24 02/02/24 (formulary)] PARoxetine [Paxil] 10 mg PO DIRECTED 02/02/24 02/02/24 Thiamine [Vitamin B-1] 100 mg PO DIRECTED 02/02/24 02/02/24 hydrALAZINE HCL [Apresoline] 25 mg PO DIRECTED 02/02/24 02/02/24 hydrOXYzine HCL [Atarax] 25 mg PO DIRECTED PRN 02/02/24 02/02/24 Previous Rx's Medication Instructions Recorded LORazepam [Ativan] 0.5 mg PO TID PRN 3 Days #9 tab 02/07/24 hydrOXYzine HCL [Atarax] 25 mg PO TID PRN #15 tab 03/25/24 methylPREDNISolone Dose Pack 4 mg PO DIRECTED #1 packet 03/25/24 [Medrol Dose Pack] Cephalexin [Keflex] 500 mg PO Q12HR 7 Days #14 cap 01/03/25 Allergies Allergy/AdvReac Type Severity Reaction Status Date / Time shellfish derived [Shellfish] Allergy Severe Dyspnea Verified 10/31/24 02:31 iodine Allergy Rash/Hives Verified 10/31/24 02:31 Sulfa (Sulfonamide Allergy Rash/Hives Verified 10/31/24 02:31 Antibiotics) Review of Systems ROS Statement: Those systems with pertinent positive or pertinent negative responses have been documented in the HPI. ROS Other: All systems not noted in ROS Statement are negative. 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 History of Any Multi-Drug Resistant Organisms: None Reported Past Surgical History: AICD, Back Surgery Additional Past Surgical History / Comment(s): Cervical surgery at [facility] d/t injury, colonoscopies/benign polypectomy Past Anesthesia/Blood Transfusion Reactions: No Reported Reaction, Motion Sickness Additional Past Anesthesia/Blood Transfusion Reaction / Comment(s): PT has clausterphobia. Type of Cardiac Device: AICD Device Placement Date:: unknown Past Psychological History: Anxiety Smoking Status: Current some day smoker Past Alcohol Use History: Abuse, Daily, Heavy Past Drug Use History: None Reported - Past Family History Mother Family Medical History: Cancer Additional Family Medical History / Comment(s): Mother of melanoma Father Family Medical History: No Reported History Additional Family Medical History / Comment(s): Father is healthy General Exam Limitations: no limitations General appearance: appears intoxicated, anxious Head exam: Present: atraumatic, normocephalic, normal inspection Eye exam: Present: normal appearance, PERRL, EOMI. Absent: scleral icterus, conjunctival injection, periorbital swelling ENT exam: Present: normal exam, mucous membranes moist Neck exam: Present: normal inspection. Absent: tenderness, meningismus, lymphadenopathy Respiratory exam: Present: normal lung sounds bilaterally. Absent: respiratory distress, wheezes, rales, rhonchi, stridor Cardiovascular Exam: Present: regular rate, normal rhythm, normal heart sounds. Absent: systolic murmur, diastolic murmur, rubs, gallop, clicks GI/Abdominal exam: Present: soft, normal bowel sounds. Absent: distended, tenderness, guarding, rebound, rigid Extremities exam: Present: normal inspection, full ROM, normal capillary refill. Absent: tenderness, pedal edema, joint swelling, calf tenderness Back exam: Present: normal inspection Neurological exam: Present: alert, oriented X3, CN II-XII intact Psychiatric exam: Present: normal affect, normal mood Skin exam: Present: warm, dry, intact, normal color. Absent: rash Course Vital Signs 10/31/24 10/31/24 10/31/24 02:28 05:17 06:44 Temperature 97.7 F Pulse Rate 96 99 103 H Respiratory 16 18 16 Rate Blood Pressure 123/77 124/75 111/65 O2 Sat by Pulse 98 100 100 Oximetry 10/31/24 07:26 Temperature Pulse Rate 101 H Respiratory 18 Rate Blood Pressure 119/84 O2 Sat by Pulse 98 Oximetry - Reevaluation(s) Reevaluation #1: 10/31/24 04:46 Medical records reviewed Reevaluation #2: 10/31/24 04:46 Patient symptoms have been unchanged Patient has started to actively have hematemesis here in the ER Does appear to have bloody stools Reevaluation #3: 10/31/24 05:08 Patient informed of results questions answered Reevaluation #4: Was pt. sent in by a medical professional or institution (, PA, CERTIFIED COATINGS INSPECTOR, urgent ca re, hospital, or alf...) When possible be specific @ -no Did you speak to anyone other than the patient for history (EMS, parent, family, police, friend...)? What history was obtained from this source @ -no Did you review nursing and triage notes (agree or disagree)? Why? @ -agree Are old charts reviewed (outside hosp., previous admission, EMS record, old EKG, old radiological studies, urgent care reports/EKG's, alf records)? Report findings @ -yes Differential Diagnosis (chest pain, altered mental status, abdominal pain women, abdominal pain men, vaginal bleeding, weakness, fever, dyspnea, syncope, headache, dizziness, GI bleed, back pain, seizure, CVA, palpatations, mental health, musculoskeletal)? @ -prior EKG interpreted by me (3pts min.). @ -yes X-rays interpreted by me (1pt min.). @ -no CT interpreted by me (1pt min.). @ -Yes negative for acute disease U/S interpreted by me (1pt. min.). @ -no What testing was considered but not performed or refused? (CT, X-rays, U/S, labs)? Why? @ -none What meds were considered but not given or refused? Why? @ -none Did you discuss the management of the patient with other professionals (professionals i.e. , PA, CERTIFIED COATINGS INSPECTOR, lab, RT, psych nurse, certified social workers in health care, dye tub tender, teacher, desk officer, egg caser)? Give summary @ -no Was smoking cessation discussed for >3mins.? @ -no Was critical care preformed (if so, how long)? @ -[id number] Were there social determinants of health that impacted care today? How? (Ho melessness, low income, unemployed, alcoholism, drug addiction, transportation, low edu. Level, literacy, decrease access to med. care, shelter, rehab)? @ -none Was there de-escalation of care discussed even if they declined (Discuss DNR or withdrawal of care, Hospice)? DNR status @ -no What co-morbidities impacted this encounter? (DM, HTN, Smoking, COPD, CAD, Cancer, CVA, ARF, Chemo, Hep., AIDS, mental health diagnosis, sleep apnea, morbid obesity)? @ -none Was patient admitted / discharged? Hospital course, mention meds given and route, prescriptions, significant lab abnormalities, going to OR and other pertinent info. @ - 64 female to the ER for evaluation of alcohol intoxication, patient is actively vomiting blood here in the ER with bloody stool patient will transfer to [facility] for GI evaluation Transfer for inpatient GI evaluation Undiagnosed new problem with uncertain prognosis? @ -no Drug Therapy requiring intensive monitoring for toxicity (Heparin, Nitro, Insulin, Cardizem)? @ -no Were any procedures done? @ -no Diagnosis/symptom? @ -GI bleed upper GI bleed Acute, or Chronic, or Acute on Chronic? @ -Acute Uncomplicated (without systemic symptoms) or Complicated (systemic symptoms)? @ -Complicated Side effects of treatment? @ -no Exacerbation, Progression, or Severe Exacerbation? @ -exacerbation Poses a threat to life or bodily function? How? (Chest pain, USA, DE, pneumonia, PE, COPD, DKA, ARF, appy, cholecystitis, CVA, Diverticulitis, Homicidal, Suici macarena, threat to staff... and all critical care pts) @ -yes upper GI bleed Reevaluation #5: Differential Altered Mental Status: Hypoglycemia, DKA, hypercapnia, ETOH, overdose, CO poisoning, trauma, myxedema coma, HTN encephalopathy, infection, encephalitis, psychosis, intercranial hemorrhage, hepatic encephalopathy, meningitis, CVA, this is not meant to be an all-inclusive list - Consultations Consultation #1: spoke with [facility] who agreed to admit this patient Medical Decision Making - Medical Decision Making 64 female to the ER for evaluation of alcohol intoxication, patient is actively vomiting blood here in the ER with bloody stool patient will transfer to [facility] for GI evaluation - Lab Data Result diagrams: 10/31/24 05:53 10/31/24 05:53 Lab Results 10/31/24 10/31/24 10/31/24 Range/Units 05:48 05:53 05:53 WBC 25.0 H (3.8-10.6) k/uL RBC 4.68 (3.80-5.40) m/uL Hgb 14.9 (11.4-16.0) gm/dL Hct 47.1 H (34.0-46.0) % MCV 100.6 H D (80.0-100.0) fL MCH 31.9 (25.0-35.0) pg MCHC 31.8 (31.0-37.0) g/dL RDW 13.6 (11.5-15.5) % Plt Count 210 (150-450) k/uL MPV 9.7 Neutrophils % 91 % Lymphocytes % 5 % Monocytes % 4 % Eosinophils % 0 % Basophils % 0 % Neutrophils # 22.7 H (1.3-7.7) k/uL Lymphocytes # 1.2 (1.0-4.8) k/uL Monocytes # 0.9 (0-1.0) k/uL Eosinophils # 0.1 (0-0.7) k/uL Basophils # 0.1 (0-0.2) k/uL Hypochromasia Slight Sodium 130 L (137-145) mmol/L Potassium 5.0 (3.5-5.1) mmol/L Chloride 85 L (98-107) mmol/L Carbon Dioxide <5 L* (22-30) mmol/L Anion Gap mmol/L BUN 33 H (7-17) mg/dL Creatinine 2.36 H (0.52-1.04) mg/dL Est GFR (CKD-EPI)AfAm 25 (>60 ml/min/1.73 sqM) Est GFR (CKD-EPI)NonAf 21 (>60 ml/min/1.73 sqM) Glucose 151 H (74-99) mg/dL Calcium 7.5 L (8.4-10.2) mg/dL Phosphorus 11.3 H* (2.5-4.5) mg/dL Magnesium 1.9 (1.6-2.3) mg/dL Total Bilirubin 1.1 (0.2-1.3) mg/dL AST 110 H (14-36) U/L ALT 57 H (4-34) U/L Alkaline Phosphatase 91 (38-126) U/L Total Protein 7.4 (6.3-8.2) g/dL Albumin 5.1 H (3.5-5.0) g/dL Lipase 313 H (23-300) U/L Stool Occult Blood Negative (Negative) Serum Alcohol 176 mg/dL - Radiology Data Radiology results: report reviewed (CT abdomen pelvis positive for cystitis gastritis and esophagitis), image reviewed Critical Care Time Critical Care Time: Yes Total Critical Care Time: 31 Disposition Clinical Impression: Alcohol intoxication, Alcohol withdrawal, Abdominal pain, Nausea and vomiting, UGIB (upper gastrointestinal bleed), Hyponatremia, Alcoholic gastritis, Dehydration, Alcoholic ketoacidosis, FRAN (acute kidney injury) Disposition: OTHER INSTITUTION NOT DEFINED Condition: Serious Is patient prescribed a controlled substance at d/c from ED?: No Referrals: Aileen Torres MD [Primary Care Provider] - 1-2 days Time of Disposition: 05:00 - Out of Hospital Transfer - Req. Specs Out of Hospital Transfer - Requested Specifics: Other Emergency Center ([facility]
[2024-10-31] MEDS: SODIUM CHLORIDE 0.9% 1,000 ML IV STA (05:53)
[2024-10-31] MEDS: methylPREDNISolone SOD SUCCI 125 MG/2 ML VIAL IV STA (05:54)
[2024-10-31] MEDS: diphenhydrAMINE 50 MG/ML 1 ML VIAL IVP STA (05:57)
[2024-10-31] MEDS: FAMOTIDINE 20 MG/2 ML VIAL IV STA (05:58)
[2024-10-31] MEDS: ONDANSETRON 4 MG/2 ML VIAL IVP STA (06:01)
[2024-10-31] MEDS: SODIUM CHLORIDE 0.9% 500 ML 500 ML IV STA (06:12)
[2024-10-31] MEDS: PANTOPRAZOLE 40 MG/10 ML VIAL IVP STA (06:35)
[2024-10-31 06:38] LABS: ALT 57 U/L (4-34); AST 110 U/L (14-36); Albumin 5.1 g/dL (3.5-5.0); Alkaline Phosphatase 91 U/L (38-126); Blood Urea Nitrogen 33 mg/dL (7-17); Calcium 7.5 mg/dL (8.4-10.2); Chloride 85 mmol/L (98-107); Glucose 151 mg/dL (74-99); Lipase 313 U/L (23-300); Magnesium 1.9 mg/dL (1.6-2.3); Sodium 130 mmol/L (137-145); Total Bilirubin 1.1 mg/dL (0.2-1.3); Total Protein 7.4 g/dL (6.3-8.2)
[2024-10-31 06:43] LABS: African American GFR (CKD) 25 (>60 ml/min/1.73 sqM); Non-African American GFR(CKD) 21 (>60 ml/min/1.73 sqM)
[2024-10-31 06:44] LABS: Carbon Dioxide <5 mmol/L (22-30); Phosphorus 11.3 mg/dL (2.5-4.5)
[2024-10-31 06:47] LABS: Alcohol 176 mg/dL
[2024-10-31] MEDS: OCTREOTIDE 100 MCG/ML INJ IVP STA (06:57)
--- NOTE | 2024-10-31 06:59 | CT ---
EXAM: CT Abdomen and Pelvis With Intravenous Contrast CLINICAL HISTORY: ITS.REASON CT Reason: pain,gib TECHNIQUE: Axial computed tomography images of the abdomen and pelvis with intravenous contrast. CTDI is 20.6 mGy and DLP is 876 mGy-cm. This CT exam was performed using one or more of the following dose reduction techniques: automated exposure control, adjustment of the mA and/or kV according to patient size, and/or use of iterative reconstruction technique. COMPARISON: No relevant prior studies available. FINDINGS: Limitations: Limited examination given the monophasic imaging. No gross evidence of internal hemorrhage. If there is further concern for intraluminal hemorrhage, consider multiphasic imaging or scintigraphic imaging. Lung bases: Unremarkable. No mass. No consolidation. Mediastinum: Mild esophageal thickening which may be inflammatory nature. ABDOMEN: Liver: Decreased hepatic attenuation index. Findings can be seen with hepatic steatosis. Gallbladder and bile ducts: Cholecystectomy changes. No ductal dilation. Pancreas: Unremarkable. No mass. No ductal dilation. Spleen: Unremarkable. No splenomegaly. Adrenals: Unremarkable. No mass. Kidneys and ureters: Unremarkable. No solid mass. No hydronephrosis. Stomach and bowel: Diffuse colonic annular thickening to and from the ascending colon. Findings may relate to colitis. No evidence of bowel obstruction. PELVIS: Appendix: Normal appendix. Bladder: Diffuse bladder wall thickening with adjacent stranding. Findings may relate to underdistention. Cystitis is less likely. Consider correlation with laboratory values. Reproductive: Unremarkable as visualized. ABDOMEN and PELVIS: Intraperitoneal space: No free fluid or air. Bones/joints: No acute fracture. No dislocation. Soft tissues: Unremarkable. Vasculature: Unremarkable. No abdominal aortic aneurysm. Lymph nodes: Unremarkable. No enlarged lymph nodes. IMPRESSION: 1. Limited examination given the monophasic imaging. No gross evidence of internal hemorrhage. If there is further concern for intraluminal hemorrhage, consider multiphasic imaging or scintigraphic imaging. 2. Diffuse bladder wall thickening with adjacent stranding. Findings may relate to underdistention. Cystitis is less likely. Consider correlation with laboratory values. 3. Diffuse colonic annular thickening to and from the ascending colon. Findings may relate to colitis. 4. Mild esophageal thickening which may be inflammatory nature. 5. No evidence of bowel obstruction. 6. No other acute findings. 7. Incidental findings as described.
[2024-10-31 07:08] LABS: Basophils # (A) 0.1 k/uL (0-0.2); Basophils % (A) 0 %; Eosinophils # (A) 0.1 k/uL (0-0.7); Eosinophils % (A) 0 %; HCT 47.1 % (34.0-46.0); HGB 14.9 gm/dL (11.4-16.0); Hypochromasia Slight; Lymphocytes # (A) 1.2 k/uL (1.0-4.8); Lymphocytes % (A) 5 %; MCH 31.9 pg (25.0-35.0); MCHC 31.8 g/dL (31.0-37.0); Mean Platelet Volume 9.7; Monocytes # (A) 0.9 k/uL (0-1.0); Monocytes % (A) 4 %; Neutrophils # (A) 22.7 k/uL (1.3-7.7); Neutrophils % (A) 91 %; Platelet Count 210 k/uL (150-450); RBC 4.68 m/uL (3.80-5.40); RDW 13.6 % (11.5-15.5)
[2024-10-31 07:09] LABS: MCV 100.6 fL (80.0-100.0)
[2024-10-31 07:28] VITALS: BP 119/84; PULSE 101; RESP 18
== END 2024-10-31 08:10 | disposition other institution (70) ==
LOC: EC 02:23
DX: F10.239 Alcohol dependence with withdrawal, unspecified (principal); F10.229 Alcohol dependence with intoxication, unspecified; K92.2 Gastrointestinal hemorrhage, unspecified; E86.0 Dehydration; E87.1 Hypo-osmolality and hyponatremia; E87.29 Other acidosis; N17.9 Acute kidney failure, unspecified; F17.200 Nicotine dependence, unspecified, uncomplicated; Y90.6 Blood alcohol level of 120-199 mg/100 ml; Z88.2 Allergy status to sulfonamides; Z91.013 Allergy to seafood; Z91.041 Radiographic dye allergy status
CPT/HCPCS: 36415; 80053; 83690; 83735; 84100; 85025; 82272; 80320; 74177; 99291; 96365; 96375; 96361; J1200; J3360; J2405; J2354; J0696; J3490; Q9967; J2919; J2470

== ENCOUNTER 2024-11-13 07:03 | Day surgery (SDC) | payer BC, OTHER ==
[2024-11-09 10:38] VITALS: BMI 24.3
[~2024-11-13 07:03] MED LIST changes: -LACTATED RINGERS 1,000 ML IV SCH; +LIDOCAINE 1% (10MG/ML) FOR IV START INTRADERMA PRN; -LIDOCAINE 1% 20 ML VIAL (10MG/ML) FOR IV START INTRADERMA PRN
[2024-11-13] MEDS: IV FLUID CONTINUATION 1,000 ML IV ONE (07:21)
[2024-11-13 07:23] VITALS: TEMP 97.4
[2024-11-13] MEDS: LACTATED RINGERS 1,000 ML IV SCH (07:33)
[2024-11-13] MEDS ORDERED: PROPOFOL 10 MG/ML 20 ML VIAL IV ONE (08:10)
[2024-11-13] MEDS ORDERED: LIDOCAINE 1% INJ 10MG/ML (20 ML MDV) ONE (08:10)
--- NOTE | 2024-11-13 08:35 | P.PCN ---
Date of Procedure: 11/13/24 Procedure(s) Performed: BRIEF HISTORY: Patient is a 64-year-old pleasant white female scheduled for an elective colonoscopy as a part of screening for prior history of colon polyps. PROCEDURE PERFORMED: Colonoscopy with snare polypectomy. PREOPERATIVE DIAGNOSIS: Screening for history of colon polyps. IV sedation per Anesthesia. PROCEDURE: After informed consent was obtained, the patient, was brought into the endoscopy unit. IV sedation was administered by Anesthesia under continuous monitoring. Digital rectal examination was normal. Initially the Olympus CF-160 flexible video colonoscope was then inserted in the rectum, gradually advanced into the cecum without any difficulty. Careful examination was performed as the scope was gradually being withdrawn. Ileocecal valve and the appendiceal orifice were visualized and appeared normal. Prep was excellent. Mucosa of the cecum, appeared normal. Descending colon there was a 6 mm sessile polyp removed by cold snare polypectomy. Rest of the ascending colon, transverse colon, descending colon, appeared normal. The sigmoid colon there was another 5 mm polyp removed by cold snare polypectomy. Rest of the sigmoid colon, and rectum appeared normal. Retroflexion was performed in the rectum and no lesions were seen. The patient tolerated the procedure well. IMPRESSION: 6 mm ascending colon polyp status post cold snare polypectomy 5 mm sigmoid colon polyp status post cold snare polypectomy RECOMMENDATIONS: Findings of this examination were discussed with the patient as well as her family. She was advised to follow-up with the biopsy results. If the biopsy reveals adenoma she can have repeat colonoscopy in 5 years..
[2024-11-13 08:40] VITALS: PULSE 70; RESP 16
[2024-11-13 08:58] VITALS: BP 120/72
== END 2024-11-13 09:13 | disposition home or self-care (01) ==
LOC: ORWHC2ENDO 07:03
PROVIDERS: ATTEND Internal Medicine Gastroenterology
DX: Z12.11 Encounter for screening for malignant neoplasm of colon (principal); D12.2 Benign neoplasm of ascending colon; D12.5 Benign neoplasm of sigmoid colon; I10 Essential (primary) hypertension; F41.9 Anxiety disorder, unspecified; Z79.899 Other long term (current) drug therapy; Z86.0100 Personal history of colon polyps, unspecified; Z88.2 Allergy status to sulfonamides; Z88.8 Allergy status to other drugs, medicaments and biological substances; Z91.013 Allergy to seafood
CPT/HCPCS: 45385; J2003; J2704; 88305

== ENCOUNTER → 2024-12-28 | Outpatient (CLI) | payer BC, OTHER ==
--- NOTE | 2024-12-28 08:22 | MM ---
Reason for Exam: Additional evaluation requested from prior study. Last screening mammogram was performed 7 month(s) ago. Patient History: Menarche at age 13. First Full-Term at age 37. Late child-bearing (after 30). Postmenopausal. Patient has history of breast feeding. Patient used Hormonal Contraceptives for 2 years. Maternal aunt had breast cancer, age 60. Risk Values: Julieta 5 year model risk: 2.2%. NCI Lifetime model risk: 9.1%. Prior Study Comparison: 01/30/2016 Bilateral Screening Mammogram, [facility]. 11/10/2018 Bilateral Screening Mammogram, [facility]. 03/31/2023 Bilateral MG screening mammo w CAD, [facility]. 06/11/2024 Bilateral MG 3D screening mammo w/cad, [facility]. 06/25/2024 Left MG 3D work up w/cad , [facility]. Tissue Density: Left: The breasts are extremely dense, which lowers the sensitivity of mammography. Findings: Analyzed By CAD. Benign-appearing calcifications. No dominant mass or architectural distortion. Nodule in the left axilla appears to be slightly reduced in size. Overall Assessment: Incomplete: need additional imaging evaluation, BI-RAD 0 Management: Diagnostic Breast Ultrasound of the left breast. . Results were given to the patient verbally at the time of exam. Patient should continue monthly self-breast exams. A clinical breast exam by your physician is recommended on an annual basis. This exam should not preclude additional follow-up of suspicious palpable abnormalities. Note on Julieta scores and lifetime risk: 1. A Julieta score greater than 3% is considered moderate risk. If this is the case, consider specialist referral to assess eligibility for a risk reducing agent. 2. If overall lifetime risk for the development of breast cancer is 20% or higher, the patient may qualify for future screening with alternating mammogram and breast MRI. [facility], , 12/28/2024 8:19 AM. Electronically signed and approved by: Jose David Dawkins M.D. Radiologis
--- NOTE | 2024-12-28 08:43 | USB ---
Reason for Exam: Follow-up at short interval from prior study. Patient History: Menarche at age 13. First Full-Term at age 37. Late child-bearing (after 30). Postmenopausal. Patient has history of breast feeding. Patient used Hormonal Contraceptives for 2 years. Maternal aunt had breast cancer, age 60. Risk Values: Julieta 5 year model risk: 2.2%. NCI Lifetime model risk: 9.1%. Technique: Method: Targeted. Prior Study Comparison: 03/31/2023 Bilateral MG screening mammo w CAD, [facility]. 06/11/2024 Bilateral MG 3D screening mammo w/cad, [facility]. 06/25/2024 Left MG 3D work up w/cad , [facility]. Findings: The axilla of the left breast was scanned. A US of axilla region were reviewed. No solid or cystic masses are identified..A US of axilla region were reviewed. No solid or cystic masses are identified.. Benign-appearing lymph nodes. Overall Assessment: Benign, BI-RAD 2 Management: Screening Mammogram of both breasts in 6 months. A clinical breast exam by your physician is recommended on an annual basis and results should be correlated with mammographic findings. This exam should not preclude additional follow-up of suspicious palpable abnormalities. Results were given to the patient verbally at the time of exam. [facility], , 12/28/2024 8:40 AM. Electronically signed and approved by: Jose David Dawkins M.D. Radiologis
[2024-12-28 15:07] LABS: Basophils % (A) 1.5 %; Eosinophils # (A) 0.12 X 10*3/uL (0.04-0.35); Eosinophils % (A) 1.8 %; HCT 43.6 % (37.2-46.3); HGB 14.5 g/dL (12.0-15.0); Lymphocytes # (A) 1.49 X 10*3/uL (0.90-5.00); Lymphocytes % (A) 21.9 %; MCH 31.3 pg (27.0-32.0); MCHC 33.3 g/dL (32.0-37.0); MCV 94.2 FL (80.0-97.0); Mean Platelet Volume 10.2 FL (9.5-12.2); Monocytes # (A) 0.45 X 10*3/uL (0.20-1.00); Monocytes % (A) 6.6 %; NRBC Per 100 WBC 0 X 10*3/uL (0.00-0.01); Neutrophils # (A) 4.61 X 10*3/uL (1.80-7.70); Neutrophils % (A) 67.8 %; Platelet Count 258 X 10*3/uL (140-440); RBC 4.63 X 10*6/uL (4.10-5.20); RDW 13.1 % (11.5-14.5)
[2024-12-28 16:01] LABS: T4, Free (Free Thyroxine) 0.88 ng/dL (0.80-1.80)
== END | disposition home or self-care (01) ==
LOC: RADMAMWWP 07:43
PROVIDERS: ATTEND Internal Medicine
DX: R92.8 Other abnormal and inconclusive findings on diagnostic imaging of breast (principal); R92.342 Mammographic extreme density, left breast; L65.9 Nonscarring hair loss, unspecified; Z92.0 Personal history of contraception; Z78.0 Asymptomatic menopausal state; Z80.3 Family history of malignant neoplasm of breast
CPT/HCPCS: 77061; 77065; 82306; 82652; 84439; 84443; 85025

== ENCOUNTER 2025-03-01 16:45 | Emergency (ER) | payer BC, OTHER ==
--- NOTE | 2025-03-01 17:16 | ED ---
General Adult HPI - General Chief complaint: Alcohol Stated complaint: ETOH,Cough Time Seen by Provider: 03/01/25 16:54 Source: EMS Mode of arrival: EMS Limitations: no limitations - History of Present Illness Initial comments: This patient is a 65-year-old woman who presents to have evaluation for a cough that has been going on for 3 to 4 weeks now. She states she occasionally has some whitish to yellow sputum. She has not noted any accompanying fever or chills. There is no chest pain or dyspnea. No leg pain or swelling. No change in urination. Onset/Timin -: week(s) Severity scale (1-10): 0 Consistency: constant Improves with: none Worsens with: none Associated Symptoms: cough Treatments Prior to Arrival: none - Related Data Home Medications Medication Instructions Recorded Confirmed minoxidiL [Loniten] 2.5 mg PO DAILY 11/09/24 03/06/25 HYDROcodone/APAP 7.5-325MG [Moore 1 tab PO Q6H PRN 03/06/25 03/06/25 7.5-325] Previous Rx's Medication Instructions Recorded LORazepam [Ativan] 0.5 mg PO TID PRN 3 Days #9 tab 03/10/25 Thiamine [Vitamin B-1] 100 mg PO DAILY 30 Days #30 tablet 03/10/25 Allergies Allergy/AdvReac Type Severity Reaction Status Date / Time shellfish derived [Shellfish] Allergy Severe Dyspnea Verified 03/06/25 10:24 iodine Allergy Rash/Hives Verified 03/06/25 10:24 Sulfa (Sulfonamide Allergy Rash/Hives Verified 03/06/25 10:24 Antibiotics) Review of Systems ROS Statement: Those systems with pertinent positive or pertinent negative responses have been documented in the HPI. ROS Other: All systems not noted in ROS Statement are negative. Constitutional: Denies: fever, chills, weakness Respiratory: Reports: cough. Denies: dyspnea, hemoptysis Cardiovascular: Denies: chest pain, palpitations, orthopnea, edema, syncope Gastrointestinal: Denies: abdominal pain, nausea, vomiting Genitourinary: Denies: dysuria, hematuria Musculoskeletal: Denies: back pain Skin: Denies: rash Neurological: Denies: headache, weakness Past Medical History Past Medical History: Hypertension, Osteoarthritis (OA) Additional Past Medical History / Comment(s): Fall September 2019 with neck injury/L arm weak/decreased sensation and weakness to L leg-sent to [facility] and had cervical surgery, chronic cervical/L shoulder pain since surgery, chronic low back pain for years, ETOH abuse-pt states she has had withdrawals/shaking/weakness/nausea/one seizure long ago, alcoholic hepatitis, 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 History of Any Multi-Drug Resistant Organisms: None Reported Past Surgical History: AICD, Back Surgery Additional Past Surgical History / Comment(s): Cervical surgery at [facility] d/t injury, colonoscopies/benign polypectomy Past Anesthesia/Blood Transfusion Reactions: No Reported Reaction, Motion Sickness Additional Past Anesthesia/Blood Transfusion Reaction / Comment(s): PT has clausterphobia. Type of Cardiac Device: AICD Device Placement Date:: unknown Past Psychological History: Anxiety Smoking Status: Current some day smoker - Past Family History Mother Family Medical History: Cancer Additional Family Medical History / Comment(s): Mother of melanoma Father Family Medical History: No Reported History Additional Family Medical History / Comment(s): Father is healthy General Exam General appearance: alert, in no apparent distress Head exam: Present: atraumatic, normocephalic Eye exam: Present: normal appearance. Absent: scleral icterus, conjunctival injection ENT exam: Present: normal oropharynx Neck exam: Present: normal inspection Respiratory exam: Absent: respiratory distress, wheezes, rales, rhonchi, st ridor, accessory muscle use Cardiovascular Exam: Present: regular rate, normal rhythm, normal heart sounds. Absent: systolic murmur, diastolic murmur, rubs, gallop GI/Abdominal exam: Present: soft. Absent: distended, tenderness, guarding, rebound, rigid, mass Extremities exam: Present: normal inspection, normal capillary refill. Absent: pedal edema, calf tenderness Back exam: Present: normal inspection. Absent: CVA tenderness (R), CVA tenderness (L) Neurological exam: Present: alert Skin exam: Present: warm, dry, intact, normal color. Absent: rash Course Vital Signs 03/01/25 03/01/25 03/01/25 16:48 18:37 20:59 Temperature 97.9 F 99.3 F Pulse Rate 79 81 88 Respiratory 22 16 18 Rate Blood Pressure 106/62 116/69 115/74 O2 Sat by Pulse 96 95 99 Oximetry Medical Decision Making - Medical Decision Making The patient had chest x-ray that I interpreted as negative for acute infiltrate, pneumothorax, congestive heart failure Was pt. sent in by a medical professional or institution (, EDITH, NUT THREADER, urgent care, hospital, or long term...) When possible be specific @ -[No] Did you speak to anyone other than the patient for history (EMS, parent, family, police, friend...)? What history was obtained from this source @ -[No] Did you review nursing and triage notes (agree or disagree)? Why? @ -[I reviewed and agree with nursing and triage notes] Were old charts reviewed (outside hosp., previous admission, EMS record, old EKG, old radiological studies, urgent care reports/EKG's, long term records)? Report findings @ -[No old charts were reviewed] Differential Diagnosis (chest pain, altered mental status, abdominal pain women, abdominal pain men, vaginal bleeding, weakness, fever, dyspnea, syncope, headache, dizziness, GI bleed, back pain, seizure, CVA, palpatations, mental health, musculoskeletal)? @ -[Differential Dyspnea: Coronary syndrome, arrhythmia, tamponade, asthma, COPD, pulmonary embolism, pneumonia, pneumothorax, pulmonary effusion, anaphylaxis, diabetic ketoacidosis, flailed chest, pulmonary contusion, diaphragmatic rupture, anemia, neuromuscular, this is not meant to be an all-inclusive list. EKG interpreted by me (3pts min.). @ -[As above] X-rays interpreted by me (1pt min.). @ -[I interpreted as above CT interpreted by me (1pt min.). @ -[None done] U/S interpreted by me (1pt. min.). @ -[None done] What testing was considered but not performed or refused? (CT, X-rays, U/S, labs)? Why? @ -[None] What meds were considered but not given or refused? Why? @ -[None] Did you discuss the management of the patient with other professionals (professionals i.e. EDITH Bolton, NUT THREADER, lab, RT, psych nurse, socially responsible investment adviser, emergency preparedness manager, teacher, [place] police officer, rn case mgr)? Give summary @ -[No] Was smoking cessation discussed for >3mins.? @ -[No] Was critical care preformed (if so, how long)? @ -[No] Were there social determinants of health that impacted care today? How? (Ho melessness, low income, unemployed, alcoholism, drug addiction, transportation, low edu. Level, literacy, decrease access to med. care, prison, rehab)? @ -[No] Was there de-escalation of care discussed even if they declined (Discuss DNR or withdrawal of care, Hospice)? DNR status @ -[No] What co-morbidities impacted this encounter? (DM, HTN, Smoking, COPD, CAD, Cancer, CVA, ARF, Chemo, Hep., AIDS, mental health diagnosis, sleep apnea, morbid obesity)? @ -[Alcohol abuse Was patient admitted / discharged? Hospital course, mention meds given and route, prescriptions, significant lab abnormalities, going to OR and other pertinent info. @ -[Patient is 65-year-old woman here with history and physical consistent with tracheobronchitis the patient at this point stable to have outpatient course. Discussed appropriate further care and follow-up as well as return parameters Undiagnosed new problem with uncertain prognosis? @ -[No] Drug Therapy requiring intensive monitoring for toxicity (Heparin, Nitro, Insulin, Cardizem)? @ -[No] Were any procedures done? @ -[No] Diagnosis/symptom? @ -[Acute tracheobronchitis Acute, or Chronic, or Acute on Chronic? @ -[Acute Uncomplicated (without systemic symptoms) or Complicated (systemic symptoms)? @ -[Uncomplicated Side effects of treatment? @ -[No] Exacerbation, Progression, or Severe Exacerbation? @ -[No] Poses a threat to life or bodily function? How? (Chest pain, USA, MS, pneumonia, PE, COPD, DKA, ARF, appy, cholecystitis, CVA, Diverticulitis, Homicidal, Suicidal, threat to staff... and all critical care pts) @ -[No] All treatments are based on ideal body weight as in ED triage - Lab Data Result diagrams: 03/01/25 17:33 03/01/25 17:33 Lab Results 03/01/25 03/01/25 03/01/25 Range/Units 17:33 17: 17: WBC 5.83 (4.50-10.00) 10*3/uL RBC 4.31 (4.10-5.20) 10*6/uL Hgb 13.9 (12.0-15.0) g/dL Hct 40.3 (37.2-46.3) % MCV 93.5 (80.0-97.0) fL MCH 32.3 H (27.0-32.0) pg MCHC 34.5 (32.0-37.0) g/dL Plt Count 156 (140-440) 10*3/uL MPV 9.6 (9.5-12.2) fL Immature Gran % (Auto) 0.5 % Neutrophils % 36.3 % Lymphocytes % 49.9 % Monocytes % 8.1 % Eosinophils % 4.3 % Basophils % 0.9 % Immature Gran # 0.03 (0.00-0.04) 10*3/uL Neutrophils # 2.12 (1.80-7.70) 10*3/uL Lymphocytes # 2.91 (0.90-5.00) 10*3/uL Monocytes # 0.47 (0.20-1.00) 10*3/uL Eosinophils # 0.25 (0.04-0.35) 10*3/uL Basophils # 0.05 (0.00-0.10) 10*3/uL D-Dimer 0.29 (<0.60) mg/L FEU Sodium 146 H (137-145) mmol/L Potassium 3.5 (3.5-5.1) mmol/L Chloride 110 H (98-107) mmol/L Carbon Dioxide 24 (22-30) mmol/L Anion Gap 12 mmol/L BUN 11 (7-17) mg/dL Creatinine 0.46 L (0.52-1.04) mg/dL Est GFR (CKD-EPI)AfAm >90 (>60 ml/min/1.73 sqM) Est GFR (CKD-EPI)NonAf >90 (>60 ml/min/1.73 sqM) Glucose 85 (74-99) mg/dL Calcium 8.1 L (8.4-10.2) mg/dL Total Bilirubin 0.2 (0.2-1.3) mg/dL AST 31 (14-36) U/L ALT 27 (4-34) U/L Alkaline Phosphatase 57 (38-126) U/L NT-Pro-B Natriuret Pep <20 pg/mL Total Protein 6.3 (6.3-8.2) g/dL Albumin 3.9 (3.5-5.0) g/dL Influenza Type A (PCR) (Not Detectd) Influenza Type B (PCR) (Not Detectd) RSV (PCR) (Not Detectd) SARS-CoV-2 (PCR) (Not Detectd) 03/01/25 Range/Units 17:33 WBC (4.50-10.00) 10*3/uL RBC (4.10-5.20) 10*6/uL Hgb (12.0-15.0) g/dL Hct (37.2-46.3) % MCV (80.0-97.0) fL MCH (27.0-32.0) pg MCHC (32.0-37.0) g/dL Plt Count (140-440) 10*3/uL MPV (9.5-12.2) fL Immature Gran % (Auto) % Neutrophils % % Lymphocytes % % Monocytes % % Eosinophils % % Basophils % % Immature Gran # (0.00-0.04) 10*3/uL Neutrophils # (1.80-7.70) 10*3/uL Lymphocytes # (0.90-5.00) 10*3/uL Monocytes # (0.20-1.00) 10*3/uL Eosinophils # (0.04-0.35) 10*3/uL Basophils # (0.00-0.10) 10*3/uL D-Dimer (<0.60) mg/L FEU Sodium (137-145) mmol/L Potassium (3.5-5.1) mmol/L Chloride (98-107) mmol/L Carbon Dioxide (22-30) mmol/L Anion Gap mmol/L BUN (7-17) mg/dL Creatinine (0.52-1.04) mg/dL Est GFR (CKD-EPI)AfAm (>60 ml/min/1.73 sqM) Est GFR (CKD-EPI)NonAf (>60 ml/min/1.73 sqM) Glucose (74-99) mg/dL Calcium (8.4-10.2) mg/dL Total Bilirubin (0.2-1.3) mg/dL AST (14-36) U/L ALT (4-34) U/L Alkaline Phosphatase (38-126) U/L NT-Pro-B Natriuret Pep pg/mL Total Protein (6.3-8.2) g/dL Albumin (3.5-5.0) g/dL Influenza Type A (PCR) Not Detected (Not Detectd) Influenza Type B (PCR) Not Detected (Not Detectd) RSV (PCR) Not Detected (Not Detectd) SARS-CoV-2 (PCR) Not Detected (Not Detectd) Disposition Clinical Impression: Tracheitis Disposition: HOME SELF-CARE Condition: Good Instructions (If sedation given, give patient instructions): Acute Bronchitis (ED) Is patient prescribed a controlled substance at d/c from ED?: No Referrals: Aileen Torres MD [Primary Care Provider] - 1-2 days
[2025-03-01 17:51] LABS: Basophils # (A) 0.05 10*3/uL (0.00-0.10); Basophils % (A) 0.9 %; Eosinophils # (A) 0.25 10*3/uL (0.04-0.35); Eosinophils % (A) 4.3 %; HCT 40.3 % (37.2-46.3); HGB 13.9 g/dL (12.0-15.0); Lymphocytes # (A) 2.91 10*3/uL (0.90-5.00); Lymphocytes % (A) 49.9 %; MCH 32.3 pg (27.0-32.0); MCHC 34.5 g/dL (32.0-37.0); MCV 93.5 fL (80.0-97.0); Mean Platelet Volume 9.6 fL (9.5-12.2); Monocytes # (A) 0.47 10*3/uL (0.20-1.00); Monocytes % (A) 8.1 %; Neutrophils # (A) 2.12 10*3/uL (1.80-7.70); Neutrophils % (A) 36.3 %; Platelet Count 156 10*3/uL (140-440); RBC 4.31 10*6/uL (4.10-5.20); RDW 13.8 % (11.5-14.5); WBC 5.83 10*3/uL (4.50-10.00)
[2025-03-01 17:58] LABS: ALT 27 U/L (4-34); AST 31 U/L (14-36); African American GFR (CKD) >90 (>60 ml/min/1.73 sqM); Albumin 3.9 g/dL (3.5-5.0); Alkaline Phosphatase 57 U/L (38-126); Anion Gap 12 mmol/L; Blood Urea Nitrogen 11 mg/dL (7-17); Calcium 8.1 mg/dL (8.4-10.2); Carbon Dioxide 24 mmol/L (22-30); Chloride 110 mmol/L (98-107); Glucose 85 mg/dL (74-99); Non-African American GFR(CKD) >90 (>60 ml/min/1.73 sqM); Potassium 3.5 mmol/L (3.5-5.1); Sodium 146 mmol/L (137-145); Total Bilirubin 0.2 mg/dL (0.2-1.3); Total Protein 6.3 g/dL (6.3-8.2)
[2025-03-01 18:06] LABS: NT-Pro-B-Type Natriuretic Pept <20 pg/mL
--- NOTE | 2025-03-01 18:14 | XR ---
EXAMINATION TYPE: XR chest 2V DATE OF EXAM: 03/01/2025 6:09 PM COMPARISON: 01/25/2024 CLINICAL INDICATION: Female, 65 years old with history of cough, TECHNIQUE: XR chest 2V view(s) obtained. FINDINGS: The heart size is normal. The pulmonary vasculature is normal. The lungs are clear. IMPRESSION: 1. No acute pulmonary process. [facility], , 03/01/2025 6:12 PM
[2025-03-01 18:22] LABS: Influenza A Not Detected (Not Detectd); Influenza B Not Detected (Not Detectd); RSV Not Detected (Not Detectd)
[2025-03-01] MEDS: SODIUM CHLORIDE 0.9% 1,000 ML IV STA (18:35)
[2025-03-01] MEDS: ONDANSETRON 4 MG/2 ML VIAL IVP STA (19:13)
[2025-03-01 21:00] VITALS: BP 115/74; PULSE 88; RESP 18; TEMP 99.3
== END 2025-03-01 21:00 | disposition home or self-care (01) ==
LOC: EC 16:45
DX: J04.10 Acute tracheitis without obstruction (principal); F17.200 Nicotine dependence, unspecified, uncomplicated; Z88.2 Allergy status to sulfonamides; Z88.8 Allergy status to other drugs, medicaments and biological substances; Z88.1 Allergy status to other antibiotic agents
CPT/HCPCS: 99284; 96374; 96361; 36415; 85379; 83880; 80053; 85025; 87636; 71046; J2405

== ENCOUNTER 2025-03-04 01:42 | Emergency (ER) | payer BC, OTHER ==
--- NOTE | 2025-03-04 03:18 | ED ---
Chest Pain HPI - General Chief Complaint: Chest Pain Stated Complaint: Chest Pain Time Seen by Provider: 03/04/25 03:13 Source: patient, EMS, RN notes reviewed, old records reviewed Mode of arrival: EMS Limitations: no limitations - History of Present Illness Initial Comments: This is a 65-year-old female to the ER for evaluation patient [facility] for ev aluation regards to chest pain chest pain with alcohol intoxication patient is well-known to our facility for alcohol intoxication MD Complaint: chest pain -: hour(s) Onset: during rest, during exertion Pain Location: substernal Pain Radiation: none Severity: mild Severity scale (1-10): 1 Consistency: now resolved Improves With: nothing Worsens With: nothing Other Symptoms: palpitations Treatments Prior to Arrival: none - Related Data Home Medications Medication Instructions Recorded Confirmed minoxidiL [Loniten] 2.5 mg PO DAILY 11/09/24 03/06/25 HYDROcodone/APAP 7.5-325MG [Andreas 1 tab PO Q6H PRN 03/06/25 03/06/25 7.5-325] Previous Rx's Medication Instructions Recorded LORazepam [Ativan] 0.5 mg PO TID PRN 3 Days #9 tab 03/10/25 Thiamine [Vitamin B-1] 100 mg PO DAILY 30 Days #30 tablet 03/10/25 Allergies Allergy/AdvReac Type Severity Reaction Status Date / Time shellfish derived [Shellfish] Allergy Severe Dyspnea Verified 03/06/25 10:24 iodine Allergy Rash/Hives Verified 03/06/25 10:24 Sulfa (Sulfonamide Allergy Rash/Hives Verified 03/06/25 10:24 Antibiotics) Review of Systems ROS Statement: Those systems with pertinent positive or pertinent negative responses have been documented in the HPI. ROS Other: All systems not noted in ROS Statement are negative. 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 History of Any Multi-Drug Resistant Organisms: None Reported Past Surgical History: AICD, Back Surgery Additional Past Surgical History / Comment(s): Cervical surgery at [facility] d/t injury, colonoscopies/benign polypectomy Past Anesthesia/Blood Transfusion Reactions: No Reported Reaction, Motion Sickness Additional Past Anesthesia/Blood Transfusion Reaction / Comment(s): PT has clausterphobia. Type of Cardiac Device: AICD Device Placement Date:: unknown Past Psychological History: Anxiety Smoking Status: Current some day smoker Past Alcohol Use History: Daily Past Drug Use History: None Reported - Past Family History Mother Family Medical History: Cancer Additional Family Medical History / Comment(s): Mother of melanoma Father Family Medical History: No Reported History Additional Family Medical History / Comment(s): Father is healthy General Exam General appearance: alert, in no apparent distress Head exam: Present: atraumatic, normocephalic, normal inspection Eye exam: Present: normal appearance, PERRL, EOMI. Absent: scleral icterus, conjunctival injection, periorbital swelling ENT exam: Present: normal exam, mucous membranes moist Neck exam: Present: normal inspection. Absent: tenderness, meningismus, lymphadenopathy Respiratory exam: Present: normal lung sounds bilaterally. Absent: respiratory distress, wheezes, rales, rhonchi, stridor Cardiovascular Exam: Present: regular rate, normal rhythm, normal heart sounds. Absent: systolic murmur, diastolic murmur, rubs, gallop, clicks GI/Abdominal exam: Present: soft, normal bowel sounds. Absent: distended, tenderness, guarding, rebound, rigid Extremities exam: Present: normal inspection, full ROM, normal capillary refill. Absent: tenderness, pedal edema, joint swelling, calf tenderness Back exam: Present: normal inspection Neurological exam: Present: alert, oriented X3, CN II-XII intact Psychiatric exam: Present: normal affect, normal mood Skin exam: Present: warm, dry, intact, normal color. Absent: rash Course Vital Signs 03/04/25 03/04/25 01:47 06:42 Temperature 98.5 F 97.7 F Pulse Rate 87 79 Respiratory 18 16 Rate Blood Pressure 123/78 146/79 O2 Sat by Pulse 96 97 Oximetry - Reevaluation(s) Reevaluation #1: 03/04/25 04:26 Medical records reviewed Reevaluation #2: 03/04/25 04:27 Patient remains without chest pain Reevaluation #3: 03/04/25 04:27 Patient informed of results questions answered Reevaluation #4: 65 feWas pt. sent in by a medical professional or institution (, EDITH, NURSE DISCHARGE PLANNER, urgent care, hospital, or snf...) When possible be specific @ -no Did you speak to anyone other than the patient for history (EMS, parent, family, police, friend...)? What history was obtained from this source @ -no Did you review nursing and triage notes (agree or disagree)? Why? @ -agree Are old charts reviewed (outside hosp., previous admission, EMS record, old EKG, old radiological studies, urgent care reports/EKG's, snf records)? Report findings @ -yes Differential Diagnosis (chest pain, altered mental status, abdominal pain women, abdominal pain men, vaginal bleeding, weakness, fever, dyspnea, syncope, headache, dizziness, GI bleed, back pain, seizure, CVA, palpatations, mental health, musculoskeletal)? @ -prior EKG interpreted by me (3pts min.). @ -yes X-rays interpreted by me (1pt min.). @ -yes negative for acute disease CT interpreted by me (1pt min.). @ -no U/S interpreted by me (1pt. min.). @ -no What testing was considered but not performed or refused? (CT, X-rays, U/S, labs)? Why? @ -none What meds were considered but not given or refused? Why? @ -none Did you discuss the management of the patient with other professionals (professionals i.e. EDITH Bolton, NURSE DISCHARGE PLANNER, lab, RT, psych nurse, social work manager, feed manager, teacher, zoology technical officer, piano case maker)? Give summary @ -no Was smoking cessation discussed for >3mins.? @ -no Was critical care preformed (if so, how long)? @ -no Were there social determinants of health that impacted care today? How? (Homelessness, low income, unemployed, alcoholism, drug addiction, transportation, low edu. Level, literacy, decrease access to med. care, halfway, rehab)? @ -none Was there de-escalation of care discussed even if they declined (Discuss DNR or withdrawal of care, Hospice)? DNR status @ -no What co-morbidities impacted this encounter? (DM, HTN, Smoking, COPD, CAD, Cancer, CVA, ARF, Chemo, Hep., AIDS, mental health diagnosis, sleep apnea, morbid obesity)? @ -none Was patient admitted / discharged? Hospital course, mention meds given and route, prescriptions, significant lab abnormalities, going to OR and other pertinent info. @ - 65 male to the ER for evaluation. Patient presents today for evaluation regards to alcohol intoxication with chest pain. Chest pain resolved troponins negative EKG normal chest x-ray negative intoxication improving throughout ER stay and patient will be discharged home Discharged Undiagnosed new problem with uncertain prognosis? @ -no Drug Therapy requiring intensive monitoring for toxicity (Heparin, Nitro, Insulin, Cardizem)? @ -no Were any procedures done? @ -no Diagnosis/symptom? @ -Alcohol intoxication Acute, or Chronic, or Acute on Chronic? @ -Acute Uncomplicated (without systemic symptoms) or Complicated (systemic symptoms)? @ -Complicated Side effects of treatment? @ -no Exacerbation, Progression, or Severe Exacerbation? @ -exacerbation Poses a threat to life or bodily function? How? (Chest pain, USA, VA, pneumonia, PE, COPD, DKA, ARF, appy, cholecystitis, CVA, Diverticulitis, Homicidal, Suicidal, threat to staff... and all critical care pts) @ -yes significant intoxication Reevaluation #5: Differential Chest Pain: Stable Angina, Unstable Angina, STEMI, NSTEMI Aortic Dissection, Pneumothorax, Musculoskeletal, Esophageal Spasm GERD, Cholecystitis, Pancreatitis, Zoster, this is not meant to be an all-inclusive list. Chest Pain MDM - MDM 65 female to the ER for evaluation. Patient presents today for evaluation regards to alcohol intoxication with chest pain. Chest pain resolved troponins negative EKG normal chest x-ray negative intoxication improving throughout ER stay and patient will be discharged home Disposition Clinical Impression: Alcohol intoxication, Weakness, Alcohol abuse Disposition: HOME SELF-CARE Condition: Fair Instructions (If sedation given, give patient instructions): Alcohol Intoxication (ED) Is patient prescribed a controlled substance at d/c from ED?: No Referrals: Aileen Torres MD [Primary Care Provider] - 1-2 days
[2025-03-04 03:51] LABS: Basophils # (A) 0.06 10*3/uL (0.00-0.10); Basophils % (A) 0.7 %; Eosinophils # (A) 0.09 10*3/uL (0.04-0.35); Eosinophils % (A) 1.1 %; HCT 44.6 % (37.2-46.3); HGB 15.7 g/dL (12.0-15.0); Immature Platelet Fraction 9.3 % (1.1-6.1); Lymphocytes # (A) 2.57 10*3/uL (0.90-5.00); Lymphocytes % (A) 31.8 %; MCH 32.4 pg (27.0-32.0); MCHC 35.2 g/dL (32.0-37.0); Monocytes # (A) 0.61 10*3/uL (0.20-1.00); Monocytes % (A) 7.5 %; Neutrophils # (A) 4.74 10*3/uL (1.80-7.70); Neutrophils % (A) 58.7 %; Platelet Count 160 10*3/uL (140-440); RBC 4.85 10*6/uL (4.10-5.20); RDW 13.9 % (11.5-14.5); WBC 8.09 10*3/uL (4.50-10.00)
--- NOTE | 2025-03-04 04:02 | XR ---
EXAM: XR Chest, 2 Views CLINICAL HISTORY: ITS.REASON XR Reason: Chest pain TECHNIQUE: Frontal and lateral views of the chest. COMPARISON: X-ray dated 03/01/2025. FINDINGS: Lungs: The lungs are symmetrically hyperinflated. No consolidation. Pleural space: Unremarkable. No pneumothorax. Heart: Unremarkable. No cardiomegaly. Mediastinum: Unremarkable. Normal mediastinal contour. Bones/joints: Degenerative changes are seen within the spine and shoulders. No acute fracture. IMPRESSION: No acute findings in the chest.
[2025-03-04 04:03] LABS: ALT 34 U/L (4-34); AST 51 U/L (14-36); African American GFR (CKD) >90 (>60 ml/min/1.73 sqM); Alkaline Phosphatase 89 U/L (38-126); Anion Gap 21 mmol/L; Blood Urea Nitrogen 8 mg/dL (7-17); Calcium 9.1 mg/dL (8.4-10.2); Carbon Dioxide 17 mmol/L (22-30); Chloride 102 mmol/L (98-107); Glucose 83 mg/dL (74-99); Magnesium 1.7 mg/dL (1.6-2.3); Non-African American GFR(CKD) >90 (>60 ml/min/1.73 sqM); Potassium 3.8 mmol/L (3.5-5.1); Sodium 140 mmol/L (137-145); Total Bilirubin 0.5 mg/dL (0.2-1.3); Total Protein 7.9 g/dL (6.3-8.2)
[2025-03-04 04:09] LABS: Alcohol 231 mg/dL
[2025-03-04] MEDS: SODIUM CHLORIDE 0.9% 1,000 ML IV ONE (05:28)
[2025-03-04] MEDS: LORazepam 1 MG/0.5 ML VIAL IV STA (05:29)
[2025-03-04] MEDS: SODIUM CHLORIDE 0.9% 500 ML 500 ML IV ONE (05:29)
[2025-03-04] MEDS: PANTOPRAZOLE 40 MG/10 ML VIAL IVP STA (05:30)
[2025-03-04] MEDS: ONDANSETRON 4 MG/2 ML VIAL IVP STA (05:30)
[2025-03-04 06:50] VITALS: BP 146/79; PULSE 79; RESP 16; TEMP 97.7
== END 2025-03-04 06:42 | disposition home or self-care (01) ==
LOC: EC 01:42
DX: F10.129 Alcohol abuse with intoxication, unspecified (principal); R53.1 Weakness; F17.200 Nicotine dependence, unspecified, uncomplicated; Z88.8 Allergy status to other drugs, medicaments and biological substances; Z88.2 Allergy status to sulfonamides; Z91.013 Allergy to seafood
CPT/HCPCS: 36415; 93005; 80053; 83735; 84484; 85025; 80320; 71046; 99285; 96374; 96375 ×2; 96361; J2060; J2405; J2470

== ENCOUNTER 2025-03-06 05:45 | Observation (INO) | payer BC, OTHER ==
--- NOTE | 2025-03-06 06:44 | ED ---
Alcohol HPI - General Chief Complaint: Alcohol Stated Complaint: ETOH Time Seen by Provider: 03/06/25 05:59 Source: patient, EMS, RN notes reviewed Mode of arrival: EMS Limitations: no limitations - History of Present Illness Initial Comments: 65-year-old female presents emergency department with chief complaint of alcohol intoxication. Patient called EMS not remember if she called EMS was found sleeping upon EMS arrival. She has no complaints patient denies any chest pain shortness of breath nausea vomiting no headache no dizziness no weakness. - Related Data Home Medications Medication Instructions Recorded Confirmed Cholecalciferol [Vitamin D3 (25 50 mcg PO DIRECTED 02/02/24 11/13/24 Mcg = 1000 Iu)] Folic Acid-Vit B Complex-Vit C 1 cap PO DIRECTED 02/02/24 11/13/24 [Nephrocaps] Multivitamins, Thera [Multivitamin 1 tab PO DIRECTED 02/02/24 11/13/24 (formulary)] Mag/Wm/Zinc(Unknown Dose) 1 dose PO QAM 11/09/24 11/13/24 Mirabegron [Mirabegron ER] 25 mg PO QAM 11/09/24 11/13/24 Terbinafine [LamISIL] 250 mg PO QAM 11/09/24 11/13/24 minoxidiL [Loniten] 1.25 mg PO DAILY 11/09/24 11/13/24 Previous Rx's Medication Instructions Recorded Promethazine/Dextromethorphan 5 ml PO Q4H PRN #125 ml 03/01/25 [Phenergan Dm 6.25-15 mg/5Ml] Allergies Allergy/AdvReac Type Severity Reaction Status Date / Time shellfish derived [Shellfish] Allergy Severe Dyspnea Verified 03/04/25 01:47 iodine Allergy Rash/Hives Verified 03/04/25 01:47 Sulfa (Sulfonamide Allergy Rash/Hives Verified 03/04/25 01:47 Antibiotics) Review of Systems ROS Statement: Those systems with pertinent positive or pertinent negative responses have been documented in the HPI. ROS Other: All systems not noted in ROS Statement are negative. 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 History of Any Multi-Drug Resistant Organisms: None Reported Past Surgical History: AICD, Back Surgery Additional Past Surgical History / Comment(s): Cervical surgery at [facility] d/t injury, colonoscopies/benign polypectomy Past Anesthesia/Blood Transfusion Reactions: No Reported Reaction, Motion Sickness Additional Past Anesthesia/Blood Transfusion Reaction / Comment(s): PT has clausterphobia. Type of Cardiac Device: AICD Device Placement Date:: unknown Past Psychological History: Anxiety Smoking Status: Current some day smoker Past Alcohol Use History: Daily, Heavy Past Drug Use History: None Reported - Past Family History Mother Family Medical History: Cancer Additional Family Medical History / Comment(s): Mother of melanoma Father Family Medical History: No Reported History Additional Family Medical History / Comment(s): Father is healthy General Exam Limitations: no limitations General appearance: alert, in no apparent distress, appears intoxicated Head exam: Present: atraumatic, normocephalic, normal inspection Eye exam: Present: normal appearance, PERRL, EOMI. Absent: scleral icterus, conjunctival injection, periorbital swelling ENT exam: Present: mucous membranes dry. Absent: normal exam, mucous membranes moist Neck exam: Present: normal inspection, full ROM. Absent: tenderness, meningismus, lymphadenopathy Respiratory exam: Present: normal lung sounds bilaterally. Absent: respiratory distress, wheezes, rales, rhonchi, stridor Cardiovascular Exam: Present: regular rate, normal rhythm, normal heart sounds. Absent: systolic murmur, diastolic murmur, rubs, gallop, clicks Neurological exam: Present: alert, CN II-XII intact, reflexes normal. Absent: motor sensory deficit Skin exam: Present: warm, dry, intact, normal color. Absent: rash Course Vital Signs 03/06/25 05:47 Temperature 97.6 F Pulse Rate 69 Respiratory 17 Rate Blood Pressure 102/67 O2 Sat by Pulse 97 Oximetry Medical Decision Making - Medical Decision Making Was pt. sent in by a medical professional or institution (Dr., PA, [employer], urgent care, hospital, or prison...) When possible be specific @ -No Did you speak to anyone other than the patient for history (EMS, parent, family, police, friend...)? What history was obtained from this source @ -No Did you review nursing and triage notes (agree or disagree)? Why? @ -I reviewed and agree with nursing and triage notes Were old charts reviewed (outside hosp., previous admission, EMS record, old EKG, old radiological studies, urgent care reports/EKG's, prison records)? Report findings @ -No old charts were reviewed Differential Diagnosis (chest pain, altered mental status, abdominal pain women, abdominal pain men, vaginal bleeding, weakness, fever, dyspnea, syncope, headache, dizziness, GI bleed, back pain, seizure, CVA, palpatations, mental health, musculoskeletal)? @ -Differential Weakness: Hypoglycemia, shock, sepsis, hyponatremia, anemia, infection, NJ, ETOH, adverse medicine reaction, overdose, stroke, this is not meant to be an all-inclusive list. Differential Altered Mental Status: Hypoglycemia, DKA, hypercapnia, ETOH, overdose, CO poisoning, trauma, myxedema coma, HTN encephalopathy, infection, encephalitis, psychosis, intercranial hemorrhage, hepatic encephalopathy, meningitis, CVA, this is not meant to be an all-inclusive list EKG interpreted by me (3pts min.). @ -[None X-rays interpreted by me (1pt min.). @ -None done CT interpreted by me (1pt min.). @ -None done U/S interpreted by me (1pt. min.). @ -None done What testing was considered but not performed or refused? (CT, X-rays, U/S, labs)? Why? @ -None What meds were considered but not given or refused? Why? @ -None Did you discuss the management of the patient with other professionals (professionals i.e. , EDITH, [employer], lab, RT, psych nurse, mental health social worker, lugger, teacher, disability liaison officer, test case developer)? Give summary @ -Dr. Torres for admission Was smoking cessation discussed for >3mins.? @ -No Was critical care preformed (if so, how long)? @ -No Were there social determinants of health that impacted care today? How? (Homelessness, low income, unemployed, alcoholism, drug addiction, transportation, low edu. Level, literacy, decrease access to med. care, long-term, rehab)? @ -No Was there de-escalation of care discussed even if they declined (Discuss DNR or withdrawal of care, Hospice)? DNR status @ -No What co-morbidities impacted this encounter? (DM, HTN, Smoking, COPD, CAD, Cancer, CVA, ARF, Chemo, Hep., AIDS, mental health diagnosis, sleep apnea, morbid obesity)? @ -Abuse alcohol Was patient admitted / discharged? Hospital course, mention meds given and route, prescriptions, significant lab abnormalities, going to OR and other pertinent info. @ -Admitted patient is found to be severely intoxicated. Patient has no other complaints currently she does not have current ride to go home. Patient will be admitted for further monitoring including CIWA, Ativan withdrawal protocol, glucose monitoring. Patient is able to tolerate oral intake. Glucose was rechecked. Undiagnosed new problem with uncertain prognosis? @ -No Drug Therapy requiring intensive monitoring for toxicity (Heparin, Nitro, Insulin, Cardizem)? @ -No Were any procedures done? @ -No Diagnosis/symptom? @ -Alcohol intoxication, alcohol abuse metabolic acidosis, hypoglycemia Acute, or Chronic, or Acute on Chronic? @ -Acute Uncomplicated (without systemic symptoms) or Complicated (systemic symptoms)? @ -Complicated Side effects of treatment? @ -No Exacerbation, Progression, or Severe Exacerbation? @ -No Poses a threat to life or bodily function? How? (Chest pain, USA, NJ, pneumonia, PE, COPD, DKA, ARF, appy, cholecystitis, CVA, Diverticulitis, Homicidal, Suicidal, threat to staff... and all critical care pts) @ -No - Lab Data Result diagrams: 03/06/25 08:00 03/06/25 06:37 Lab Results 03/06/25 03/06/25 Range/Units 06:37 08:00 WBC 4.90 (4.50-10.00) 10*3/uL RBC 4.34 (4.10-5.20) 10*6/uL Hgb 14.3 (12.0-15.0) g/dL Hct 40.7 (37.2-46.3) % MCV 93.8 (80.0-97.0) fL MCH 32.9 H (27.0-32.0) pg MCHC 35.1 (32.0-37.0) g/dL Plt Count 153 (140-440) 10*3/uL MPV 9.2 L (9.5-12.2) fL Immature Gran % (Auto) 0.2 % Neutrophils % 63.5 % Lymphocytes % 29.8 % Monocytes % 3.9 % Eosinophils % 1.6 % Basophils % 1.0 % Immature Gran # 0.01 (0.00-0.04) 10*3/uL Neutrophils # 3.11 (1.80-7.70) 10*3/uL Lymphocytes # 1.46 (0.90-5.00) 10*3/uL Monocytes # 0.19 L (0.20-1.00) 10*3/uL Eosinophils # 0.08 (0.04-0.35) 10*3/uL Basophils # 0.05 (0.00-0.10) 10*3/uL Sodium 144 (137-145) mmol/L Potassium 4.0 (3.5-5.1) mmol/L Chloride 108 H (98-107) mmol/L Carbon Dioxide 15 L (22-30) mmol/L Anion Gap 21 mmol/L BUN 12 (7-17) mg/dL Creatinine 0.51 L (0.52-1.04) mg/dL Est GFR (CKD-EPI)AfAm >90 (>60 ml/min/1.73 sqM) Est GFR (CKD-EPI)NonAf >90 (>60 ml/min/1.73 sqM) Glucose 66 L (74-99) mg/dL Calcium 8.5 (8.4-10.2) mg/dL Magnesium 1.7 (1.6-2.3) mg/dL Total Bilirubin 0.8 (0.2-1.3) mg/dL AST 56 H (14-36) U/L ALT 33 (4-34) U/L Alkaline Phosphatase 83 (38-126) U/L Total Protein 7.6 (6.3-8.2) g/dL Albumin 4.9 (3.5-5.0) g/dL Serum Alcohol 286 H* mg/dL Disposition Clinical Impression: Alcohol intoxication, Alcohol abuse, Metabolic acidosis, Hypoglycemia Disposition: ADMITTED IP TO THIS HOSP Condition: Fair Referrals: Aileen Torres MD [Primary Care Provider] - 1-2 days Time of Disposition: 08:50
[2025-03-06] MEDS: SODIUM CHLORIDE 0.9% 1,000 ML IV STA (06:50)
[2025-03-06] MEDS: SODIUM CHLORIDE 0.9% 500 ML 500 ML IV STA (06:50)
[2025-03-06 07:09] LABS: Carbon Dioxide 15 mmol/L (22-30); Chloride 108 mmol/L (98-107); Glucose 66 mg/dL (74-99); Sodium 144 mmol/L (137-145)
[2025-03-06 07:10] LABS: ALT 33 U/L (4-34); African American GFR (CKD) >90 (>60 ml/min/1.73 sqM); Albumin 4.9 g/dL (3.5-5.0); Anion Gap 21 mmol/L; Blood Urea Nitrogen 12 mg/dL (7-17); Calcium 8.5 mg/dL (8.4-10.2); Non-African American GFR(CKD) >90 (>60 ml/min/1.73 sqM); Total Bilirubin 0.8 mg/dL (0.2-1.3); Total Protein 7.6 g/dL (6.3-8.2)
[2025-03-06 07:13] LABS: AST 56 U/L (14-36); Alcohol 286 mg/dL; Alkaline Phosphatase 83 U/L (38-126); Magnesium 1.7 mg/dL (1.6-2.3)
[2025-03-06 08:27] LABS: Basophils # (A) 0.05 10*3/uL (0.00-0.10); Eosinophils # (A) 0.08 10*3/uL (0.04-0.35); Eosinophils % (A) 1.6 %; HCT 40.7 % (37.2-46.3); HGB 14.3 g/dL (12.0-15.0); Lymphocytes # (A) 1.46 10*3/uL (0.90-5.00); Lymphocytes % (A) 29.8 %; MCH 32.9 pg (27.0-32.0); MCHC 35.1 g/dL (32.0-37.0); MCV 93.8 fL (80.0-97.0); Mean Platelet Volume 9.2 fL (9.5-12.2); Monocytes # (A) 0.19 10*3/uL (0.20-1.00); Monocytes % (A) 3.9 %; Neutrophils # (A) 3.11 10*3/uL (1.80-7.70); Neutrophils % (A) 63.5 %; Platelet Count 153 10*3/uL (140-440); RBC 4.34 10*6/uL (4.10-5.20); RDW 13.8 % (11.5-14.5)
[2025-03-06] MEDS ORDERED: LORazepam 1 MG/0.5 ML VIAL IV PRN (08:55)
[2025-03-06] MEDS ORDERED: chlordiazePOXIDE 25 MG CAP PO PRN ×2 (08:55)
[2025-03-06] MEDS ORDERED: NALOXONE 0.4 MG/ML 1 ML VIAL IV PRN (08:55)
[2025-03-06] MEDS: ONDANSETRON 4 MG/2 ML VIAL IVP STA (09:00)
[2025-03-06 09:04] LABS: Glucose,Whole Blood 79 mg/dL (70-110)
[2025-03-06] MEDS: chlordiazePOXIDE 25 MG CAP PO PRN ×2 (09:26→12:44)
[2025-03-06] MEDS: SODIUM CHLORIDE 0.9% 1,000 ML IV SCH (10:24)
[2025-03-06] MEDS: DIPHENOX-ATROP 2.5-0.025 MG 1 EACH TAB PO STA (11:44)
[2025-03-06] MEDS: HYDROcodone/APAP 7.5-325MG 1 EACH TAB PO PRN (16:51)
[2025-03-06] MEDS: ONDANSETRON 4 MG/2 ML VIAL IVP PRN (17:54)
[2025-03-07] MEDS: PANTOPRAZOLE 40 MG TABLET PO SCH (05:27)
[2025-03-07 08:01] LABS: Basophils # (A) 0.03 X 10*3/uL (0.00-0.10); Basophils % (A) 0.4 %; Eosinophils # (A) 0.12 X 10*3/uL (0.04-0.35); Eosinophils % (A) 1.6 %; HCT 37.4 % (37.2-46.3); HGB 12.9 g/dL (12.0-15.0); Lymphocytes # (A) 1.92 X 10*3/uL (0.90-5.00); Lymphocytes % (A) 25.5 %; MCH 32.1 pg (27.0-32.0); MCHC 34.5 g/dL (32.0-37.0); Mean Platelet Volume 9.9 FL (9.5-12.2); Monocytes # (A) 0.57 X 10*3/uL (0.20-1.00); Monocytes % (A) 7.6 %; NRBC Per 100 WBC 0 X 10*3/uL (0.00-0.01); Neutrophils # (A) 4.87 X 10*3/uL (1.80-7.70); Neutrophils % (A) 64.6 %; Platelet Count 168 X 10*3/uL (140-440); RBC 4.02 X 10*6/uL (4.10-5.20); RDW 14.2 % (11.5-14.5); WBC 7.53 X 10*3/uL (4.50-10.00)
[2025-03-07 08:05] LABS: ALT 28 U/L (8-44); AST 38 U/L (13-35); Albumin 3.9 g/dL (3.8-4.9); Albumin/Globulin Ratio 1.86 Ratio (1.60-3.17); Alkaline Phosphatase 67 U/L (41-126); Blood Urea Nitrogen 11.5 mg/dL (9.0-27.0); Calcium 8.5 mg/dL (8.7-10.3); Carbon Dioxide 23.4 mmol/L (21.6-31.8); Chloride 102 mmol/L (96-109); Globulin 2.1 g/dL (1.6-3.3); Glucose 93 mg/dL (70-110); Potassium 3.8 mmol/L (3.5-5.5); Sodium 139 mmol/L (135-145); Total Bilirubin 0.9 mg/dL (0.3-1.2)
[2025-03-07] MEDS: ENOXAPARIN 40 MG/0.4 ML SYRINGE SQ SCH (09:03)
[2025-03-07] MEDS: minoxidiL 2.5 MG TAB PO SCH (09:03)
--- NOTE | 2025-03-07 17:42 | P.HPIM ---
History of Present Illness H&P Date: 03/06/25 Sunshine Graham, is a 65-year-old female who presented to [facility] emergency room with a chief complaint of alcohol intoxication. EMS were called and patient was found sleeping at home, she was barely arousable, she was evaluated in the emergency room vital examination revealed a temperature of 97.6 pulse 69 respiration 17 blood pressure 102/67 pulse ox 97% on room air. Laboratory data revealed a white blood count of 4.9 hemoglobin 14.4 platelet count 153 sodium 144 potassium 4.0 chloride 108 CO2 15 BUN 12 creatinine 0.51 serum alcohol level was 286 Patient was admitted to medical floor she was started on CIWA protocol with Ativan. Past Medical History Past Medical History: Hypertension, Osteoarthritis (OA) Additional Past Medical History / Comment(s): Fall September 2019 with neck injury/L arm weak/decreased sensation and weakness to L leg-sent to 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 History of Any Multi-Drug Resistant Organisms: None Reported Past Surgical History: AICD, Back Surgery Additional Past Surgical History / Comment(s): Cervical surgery at [facility] d/t injury, colonoscopies/benign polypectomy Past Anesthesia/Blood Transfusion Reactions: No Reported Reaction, Motion Sickness Additional Past Anesthesia/Blood Transfusion Reaction / Comment(s): PT has clausterphobia. Type of Cardiac Device: AICD Device Placement Date:: unknown Past Psychological History: Anxiety Smoking Status: Current some day smoker Past Alcohol Use History: Daily, Heavy Past Drug Use History: None Reported - Past Family History Mother Family Medical History: Cancer Additional Family Medical History / Comment(s): Mother of melanoma Father Family Medical History: No Reported History Additional Family Medical History / Comment(s): Father is healthy Medications and Allergies Home Medications Medication Instructions Recorded Confirmed Type minoxidiL [Loniten] 2.5 mg PO DAILY 11/09/24 03/06/25 History Promethazine/Dextromethorphan 5 ml PO Q4H PRN #125 ml 03/01/25 03/06/25 Rx [Phenergan Dm 6.25-15 mg/5Ml] HYDROcodone/APAP 7.5-325MG [[place] 1 tab PO Q6H PRN 03/06/25 03/06/25 History 7.5-325] Allergies Allergy/AdvReac Type Severity Reaction Status Date / Time shellfish derived [Shellfish] Allergy Severe Dyspnea Verified 03/06/25 10:24 iodine Allergy Rash/Hives Verified 03/06/25 10:24 Sulfa (Sulfonamide Allergy Rash/Hives Verified 03/06/25 10:24 Antibiotics) Physical Exam Vitals: Vital Signs Temp Pulse Resp BP Pulse Ox 03/06/25 11:29 84 16 128/81 99 03/06/25 05:47 97.6 F 69 17 102/67 97 Intake and Output 03/06/25 03/06/25 03/06/25 06:59 14:59 22:59 Other: Weight 72.575 kg In general patient is alert and oriented x 3 in no distress HEENT head normocephalic and atraumatic Neck is supple no JVD no goiter no lymphadenopathy no carotid bruit Chest examination is clear to auscultation no crackles no wheezing Cardiac exam reveals regular heart sounds S1 and S2 no gallops no murmurs Abdomen is soft nontender no organomegaly with normal bowel sounds Extremity exam reveals no edema no cyanosis or clubbing Neurological examination reveals no gross focal deficits Results CBC & Chem 7: 03/06/25 08:00 03/06/25 06:37 Labs: Abnormal Lab Results - Last 24 Hours (Table) 03/06/25 03/06/25 Range/Units 06:37 08:00 MCH 32.9 H (27.0-32.0) pg MPV 9.2 L (9.5-12.2) fL Monocytes # 0.19 L (0.20-1.00) 10*3/uL Chloride 108 H (98-107) mmol/L Carbon Dioxide 15 L (22-30) mmol/L Creatinine 0.51 L (0.52-1.04) mg/dL Glucose 66 L (74-99) mg/dL AST 56 H (14-36) U/L Serum Alcohol 286 H* mg/dL Assessment and Plan Plan: Alcohol intoxication with early alcohol withdrawal Known history of multiple admissions for alcohol intoxication and withdrawal Underlying history of hypertension Underlying history of osteoarthritis Underlying history of gastritis Underlying history of anxiety disorder At this time patient was seen and examined Medications reviewed and reordered [facility] protocol ordered Will add oral pantoprazole and subcu Lovenox Will follow closely
--- NOTE | 2025-03-07 17:44 | P.PN ---
Subjective Progress Note Date: 03/07/25 Sunshine Graham, is a 65-year-old female who presented to [facility] emergency room with a chief complaint of alcohol intoxication. EMS were called and patient was found sleeping at home, she was barely arousable, she was evaluated in the emergency room vital examination revealed a temperature of 97.6 pulse 69 respiration 17 blood pressure 102/67 pulse ox 97% on room air. Laboratory data revealed a white blood count of 4.9 hemoglobin 14.4 platelet count 153 sodium 144 potassium 4.0 chloride 108 CO2 15 BUN 12 creatinine 0.51 serum alcohol level was 286 Patient was admitted to medical floor she was started on CIWA protocol with Ativan. On 03/07/2025 patient was seen and examined on the medical floor she is alert and oriented x 3 in no apparent distress, she is complaining of headache and tremor in her hands and increased anxiety otherwise she denies any complaints there is no fever or chills no dizziness, no chest pain no shortness of breath no cough no nausea or vomiting no abdominal pain no diarrhea no urinary symptoms Objective - Vital Signs Vital signs: Vital Signs Temp 98.6 F 03/07/25 14:05 Pulse 76 03/07/25 14:05 Resp 14 03/07/25 14:05 BP 120/74 03/07/25 14:05 Pulse Ox 97 03/07/25 14:05 FiO2 Intake & Output 03/06/25 03/07/25 03/07/25 18:59 06:59 18:59 Intake Total 118 Balance 118 Weight 72.575 kg Intake: Oral 118 Other: # Voids 2 1 # Bowel Movements 0 - Exam In general patient is alert and oriented x 3 in no distress HEENT head normocephalic and atraumatic Neck is supple no JVD no goiter no lymphadenopathy no carotid bruit Chest examination is clear to auscultation no crackles no wheezing Cardiac exam reveals regular heart sounds S1 and S2 no gallops no murmurs Abdomen is soft nontender no organomegaly with normal bowel sounds Extremity exam reveals no edema no cyanosis or clubbing Neurological examination reveals no gross focal deficits - Labs CBC & Chem 7: 03/07/25 04:41 03/07/25 04:41 Labs: Abnormal Lab Results - Last 24 Hours (Table) 03/07/25 03/07/25 Range/Units 04:41 04:41 RBC 4.02 L (4.10-5.20) X 10*6/uL MCH 32.1 H (27.0-32.0) pg Anion Gap 13.60 H (4.00-12.00) mmol/L Creatinine 0.5 L (0.6-1.5) mg/dL BUN/Creatinine Ratio 23.00 H (12.00-20.00) Ratio Calcium 8.5 L (8.7-10.3) mg/dL AST 38 H (13-35) U/L Total Protein 6.0 L (6.2-8.2) g/dL Assessment and Plan Plan: Alcohol intoxication with early alcohol withdrawal Known history of multiple admissions for alcohol intoxication and withdrawal Underlying history of hypertension Underlying history of osteoarthritis Underlying history of gastritis Underlying history of anxiety disorder At this time patient was seen and examined Medications reviewed and reordered [facility] protocol ordered Will add oral pantoprazole and subcu Lovenox Will follow closely
--- NOTE | 2025-03-08 12:24 | P.PN ---
Subjective Progress Note Date: 03/08/25 Sunshine Graham, is a 65-year-old female who presented to [facility] emergency room with a chief complaint of alcohol intoxication. EMS were called and patient was found sleeping at home, she was barely arousable, she was evaluated in the emergency room vital examination revealed a temperature of 97.6 pulse 69 respiration 17 blood pressure 102/67 pulse ox 97% on room air. Laboratory data revealed a white blood count of 4.9 hemoglobin 14.4 platelet count 153 sodium 144 potassium 4.0 chloride 108 CO2 15 BUN 12 creatinine 0.51 serum alcohol level was 286 Patient was admitted to medical floor she was started on CIWA protocol with Ativan. On 03/07/2025 patient was seen and examined on the medical floor she is alert and oriented x 3 in no apparent distress, she is complaining of headache and tremor in her hands and increased anxiety otherwise she denies any complaints there is no fever or chills no dizziness, no chest pain no shortness of breath no cough no nausea or vomiting no abdominal pain no diarrhea no urinary symptoms On 03/08/2025 patient was seen and examined on the medical floor, she is alert and oriented x 3 in no apparent distress, she is complaining of abdominal pain and tremor in her hands and increased anxiety otherwise she denies any complaints there is no fever or chills no dizziness, no chest pain no shortness of breath no cough no nausea or vomiting no abdominal pain no diarrhea no urinary symptoms Objective - Vital Signs Vital signs: Vital Signs Temp 97.9 F 03/08/25 07:00 Pulse 71 03/08/25 07:00 Resp 16 03/08/25 07:00 BP 151/91 03/08/25 07:00 Pulse Ox 96 03/08/25 07:00 FiO2 Intake & Output 03/07/25 03/08/25 03/08/25 18:59 06:59 18:59 Intake Total 118 Balance 118 Intake: Oral 118 Other: Voiding Method Toilet Diaper Incontinent # Voids 2 2 1 # Bowel Movements 0 - Exam In general patient is alert and oriented x 3 in no distress HEENT head normocephalic and atraumatic Neck is supple no JVD no goiter no lymphadenopathy no carotid bruit Chest examination is clear to auscultation no crackles no wheezing Cardiac exam reveals regular heart sounds S1 and S2 no gallops no murmurs Abdomen is soft nontender no organomegaly with normal bowel sounds Extremity exam reveals no edema no cyanosis or clubbing Neurological examination reveals no gross focal deficits - Labs CBC & Chem 7: 03/07/25 04:41 03/07/25 04:41 Assessment and Plan Plan: Alcohol intoxication with early alcohol withdrawal Known history of multiple admissions for alcohol intoxication and withdrawal Underlying history of hypertension Underlying history of osteoarthritis Underlying history of gastritis Underlying history of anxiety disorder At this time patient was seen and examined Medications reviewed and reordered [facility] protocol ordered Will add oral pantoprazole and subcu Lovenox Will follow closely
[2025-03-09 07:54] LABS: Basophils # (A) 0.04 10*3/uL (0.00-0.10); Basophils % (A) 0.8 %; Eosinophils # (A) 0.12 10*3/uL (0.04-0.35); Eosinophils % (A) 2.3 %; HCT 36.7 % (37.2-46.3); HGB 12.7 g/dL (12.0-15.0); Immature Platelet Fraction 3.3 % (1.1-6.1); Lymphocytes # (A) 1.33 10*3/uL (0.90-5.00); Lymphocytes % (A) 25.1 %; MCH 32.5 pg (27.0-32.0); MCHC 34.6 g/dL (32.0-37.0); MCV 93.9 fL (80.0-97.0); Mean Platelet Volume 10.1 fL (9.5-12.2); Monocytes # (A) 0.32 10*3/uL (0.20-1.00); Neutrophils # (A) 3.48 10*3/uL (1.80-7.70); Neutrophils % (A) 65.6 %; Platelet Count 129 10*3/uL (140-440); RBC 3.91 10*6/uL (4.10-5.20); RDW 13.9 % (11.5-14.5)
[2025-03-09 08:01] LABS: ALT 19 U/L (4-34); AST 24 U/L (14-36); African American GFR (CKD) >90 (>60 ml/min/1.73 sqM); Albumin 3.7 g/dL (3.5-5.0); Albumin/Globulin Ratio 1.5; Alkaline Phosphatase 55 U/L (38-126); Anion Gap 6 mmol/L; Blood Urea Nitrogen 10 mg/dL (7-17); Calcium 9.1 mg/dL (8.4-10.2); Carbon Dioxide 24 mmol/L (22-30); Chloride 103 mmol/L (98-107); Globulin 2.4 g/dL; Glucose 99 mg/dL (74-99); Non-African American GFR(CKD) >90 (>60 ml/min/1.73 sqM); Potassium 3.8 mmol/L (3.5-5.1); Sodium 133 mmol/L (137-145); Total Bilirubin 0.7 mg/dL (0.2-1.3); Total Protein 6.1 g/dL (6.3-8.2)
--- NOTE | 2025-03-09 13:09 | P.PN ---
Subjective Progress Note Date: 03/09/25 Sunshine Graham, is a 65-year-old female who presented to [facility] emergency room with a chief complaint of alcohol intoxication. EMS were called and patient was found sleeping at home, she was barely arousable, she was evaluated in the emergency room vital examination revealed a temperature of 97.6 pulse 69 respiration 17 blood pressure 102/67 pulse ox 97% on room air. Laboratory data revealed a white blood count of 4.9 hemoglobin 14.4 platelet count 153 sodium 144 potassium 4.0 chloride 108 CO2 15 BUN 12 creatinine 0.51 serum alcohol level was 286 Patient was admitted to medical floor she was started on CIWA protocol with Ativan. On 03/07/2025 patient was seen and examined on the medical floor she is alert and oriented x 3 in no apparent distress, she is complaining of headache and tremor in her hands and increased anxiety otherwise she denies any complaints there is no fever or chills no dizziness, no chest pain no shortness of breath no cough no nausea or vomiting no abdominal pain no diarrhea no urinary symptoms On 03/08/2025 patient was seen and examined on the medical floor, she is alert and oriented x 3 in no apparent distress, she is complaining of abdominal pain and tremor in her hands and increased anxiety otherwise she denies any complaints there is no fever or chills no dizziness, no chest pain no shortness of breath no cough no nausea or vomiting no abdominal pain no diarrhea no urinary symptoms On 03/09/2025 patient was seen and examined on the medical floor she is alert and oriented x 3 in no apparent distress, she is still complaining of generalized weakness and tremor in her hands and increased anxiety otherwise she denies any complaints there is no fever or chills no dizziness, no chest pain no shortness of breath no cough no nausea or vomiting no abdominal pain no diarrhea no urinary symptoms Objective - Vital Signs Vital signs: Vital Signs Temp 98.0 F 03/09/25 07:00 Pulse 72 03/09/25 07:00 Resp 15 03/09/25 08:00 BP 125/79 03/09/25 07:00 Pulse Ox 98 03/09/25 07:00 FiO2 Intake & Output 03/08/25 03/09/25 03/09/25 18:59 06:59 18:59 Other: Voiding Method Toilet Diaper Incontinent # Voids 2 3 - Exam In general patient is alert and oriented x 3 in no distress HEENT head normocephalic and atraumatic Neck is supple no JVD no goiter no lymphadenopathy no carotid bruit Chest examination is clear to auscultation no crackles no wheezing Cardiac exam reveals regular heart sounds S1 and S2 no gallops no murmurs Abdomen is soft nontender no organomegaly with normal bowel sounds Extremity exam reveals no edema no cyanosis or clubbing Neurological examination reveals no gross focal deficits - Labs CBC & Chem 7: 03/09/25 07:13 03/09/25 07:13 Labs: Abnormal Lab Results - Last 24 Hours (Table) 03/09/25 03/09/25 Range/Units 07:13 07:13 RBC 3.91 L (4.10-5.20) 10*6/uL Hct 36.7 L (37.2-46.3) % MCH 32.5 H (27.0-32.0) pg Plt Count 129 L (140-440) 10*3/uL Sodium 133 L (137-145) mmol/L Creatinine 0.38 L (0.52-1.04) mg/dL Total Protein 6.1 L (6.3-8.2) g/dL Assessment and Plan Plan: Alcohol intoxication with early alcohol withdrawal Known history of multiple admissions for alcohol intoxication and withdrawal Underlying history of hypertension Underlying history of osteoarthritis Underlying history of gastritis Underlying history of anxiety disorder At this time patient was seen and examined Medications reviewed and reordered CIWA protocol ordered Will add oral pantoprazole and subcu Lovenox Will follow closely
[2025-03-09] MEDS ORDERED: ZINC OXIDE PASTE (Z-GUARD) 1 APPLIC TOPICAL PRN (13:49)
[2025-03-09 20:35] VITALS: TEMP 97.6
[2025-03-10 07:46] VITALS: BP 124/77; PULSE 64; RESP 16
--- NOTE | 2025-03-10 09:57 | P.DS ---
Providers Date of admission: 03/06/25 12:28 Expected date of discharge: 03/10/25 Attending physician: Aileen Torres Primary care physician: Aileen Torres [facility] Course: Diagnosis on discharge: Alcohol intoxication with early alcohol withdrawal Known history of multiple admissions for alcohol intoxication and withdrawal Underlying history of hypertension Underlying history of osteoarthritis Underlying history of gastritis Underlying history of anxiety disorder Hospital course: Sunshine Graham, is a 65-year-old female who presented to [facility] emergency room with a chief complaint of alcohol intoxication. EMS were called and patient was found sleeping at home, she was barely arousable, she was evaluated in the emergency room vital examination revealed a temperature of 97.6 pulse 69 respiration 17 blood pressure 102/67 pulse ox 97% on room air. Laboratory data revealed a white blood count of 4.9 hemoglobin 14.4 platelet count 153 sodium 144 potassium 4.0 chloride 108 CO2 15 BUN 12 creatinine 0.51 serum alcohol level was 286 Patient was admitted to medical floor she was started on CIWA protocol with Ativan. On 03/07/2025 patient was seen and examined on the medical floor she is alert and oriented x 3 in no apparent distress, she is complaining of headache and tremor in her hands and increased anxiety otherwise she denies any complaints there is no fever or chills no dizziness, no chest pain no shortness of breath no cough no nausea or vomiting no abdominal pain no diarrhea no urinary symptoms On 03/08/2025 patient was seen and examined on the medical floor, she is alert and oriented x 3 in no apparent distress, she is complaining of abdominal pain and tremor in her hands and increased anxiety otherwise she denies any complaints there is no fever or chills no dizziness, no chest pain no shortness of breath no cough no nausea or vomiting no abdominal pain no diarrhea no urinary symptoms On 03/09/2025 patient was seen and examined on the medical floor she is alert and oriented x 3 in no apparent distress, she is still complaining of generalized weakness and tremor in her hands and increased anxiety otherwise she denies any complaints there is no fever or chills no dizziness, no chest pain no shortness of breath no cough no nausea or vomiting no abdominal pain no diarrhea no urinary symptoms On 03/10/2025 patient was seen and examined on the medical floor she is alert and oriented x 3 in no apparent distress there is no fever or chills no headache or dizziness no chest pain no shortness of breath no cough no nausea or vomiting no abdominal pain no diarrhea and no urinary symptoms. She is improving and using Librium rarely, she will be discharged to home today she was given a prescription for Ativan and a prescription for thiamine she will be seen in our office within 1 week Patient Condition at Discharge: Fair Plan - Discharge Summary New Discharge Prescriptions: New Thiamine [Vitamin B-1] 100 mg PO DAILY 30 Days #30 tablet LORazepam [Ativan] 0.5 mg PO TID PRN 3 Days #9 tab PRN Reason: Anxiety Continue HYDROcodone/APAP 7.5-325MG [[place] 7.5-325] 1 tab PO Q6H PRN PRN Reason: Pain minoxidiL [Loniten] 2.5 mg PO DAILY Discontinued Promethazine/Dextromethorphan [Phenergan Dm 6.25-15 mg/5Ml] 5 ml PO Q4H PRN #125 ml PRN Reason: Cough Discharge Medication List minoxidiL [Loniten] 2.5 mg PO DAILY 11/09/24 [History] HYDROcodone/APAP 7.5-325MG [[place] 7.5-325] 1 tab PO Q6H PRN 03/06/25 [History] LORazepam [Ativan] 0.5 mg PO TID PRN 3 Days #9 tab 03/10/25 [Rx] Thiamine [Vitamin B-1] 100 mg PO DAILY 30 Days #30 tablet 03/10/25 [Rx] Follow up Appointment(s)/Referral(s): Aileen Torres MD [Primary Care Provider] - 1-2 days Discharge/Stand Alone Forms: AA Meetings [facility], Who Do I Call?, Community Resources, Outpatient Counseling, In Substance Abuse Facilities
[2025-03-10 10:04] LABS: Basophils # (A) 0.03 X 10*3/uL (0.00-0.10); Basophils % (A) 0.5 %; Eosinophils # (A) 0.13 X 10*3/uL (0.04-0.35); Eosinophils % (A) 2.1 %; HGB 13.2 g/dL (12.0-15.0); Lymphocytes # (A) 1.54 X 10*3/uL (0.90-5.00); Lymphocytes % (A) 25.5 %; MCH 32.1 pg (27.0-32.0); MCHC 33.8 g/dL (32.0-37.0); MCV 94.9 FL (80.0-97.0); Mean Platelet Volume 10.7 FL (9.5-12.2); Monocytes % (A) 6.6 %; NRBC Per 100 WBC 0 X 10*3/uL (0.00-0.01); Neutrophils # (A) 3.93 X 10*3/uL (1.80-7.70); Platelet Count 142 X 10*3/uL (140-440); RBC 4.11 X 10*6/uL (4.10-5.20); RDW 13.9 % (11.5-14.5); WBC 6.05 X 10*3/uL (4.50-10.00)
[2025-03-10 10:37] LABS: AST 20 U/L (13-35); Albumin/Globulin Ratio 1.82 Ratio (1.60-3.17); BUN/Creat Ratio 23.25 Ratio (12.00-20.00); Blood Urea Nitrogen 9.3 mg/dL (9.0-27.0); Calcium 9.1 mg/dL (8.7-10.3); Carbon Dioxide 23.6 mmol/L (21.6-31.8); Chloride 103 mmol/L (96-109); Globulin 2.2 g/dL (1.6-3.3); Glucose 127 mg/dL (70-110); Potassium 4.1 mmol/L (3.5-5.5); Sodium 138 mmol/L (135-145); Total Bilirubin 0.3 mg/dL (0.3-1.2); Total Protein 6.2 g/dL (6.2-8.2)
[2025-03-10 10:38] LABS: ALT 19 U/L (8-44); Alkaline Phosphatase 58 U/L (41-126)
== END 2025-03-10 11:23 | disposition home or self-care (01) ==
LOC: EC 05:45 → 6NMEDSUR 12:28
PROVIDERS: ADMIT Internal Medicine; ATTEND Internal Medicine
DX: F10.139 Alcohol abuse with withdrawal, unspecified (principal); F10.129 Alcohol abuse with intoxication, unspecified; E87.20 Acidosis, unspecified; E16.2 Hypoglycemia, unspecified; M19.90 Unspecified osteoarthritis, unspecified site; K29.70 Gastritis, unspecified, without bleeding; I10 Essential (primary) hypertension; F41.9 Anxiety disorder, unspecified; F17.200 Nicotine dependence, unspecified, uncomplicated; Y90.8 Blood alcohol level of 240 mg/100 ml or more; Z95.810 Presence of automatic (implantable) cardiac defibrillator; Z79.899 Other long term (current) drug therapy; Z88.2 Allergy status to sulfonamides
CPT/HCPCS: 96361 ×4; 96372 ×4; 96374 ×2; 96376; 99285; 36415; 80053 ×4; 83735; 85025 ×4; 80320; G0378 ×5; S0139 ×4; J2405 ×2; J1650 ×4

== ENCOUNTER 2025-03-17 00:37 | Emergency (ER) | payer BC, OTHER ==
[2025-03-17 00:44] VITALS: RESP 17
[2025-03-17] MEDS: SODIUM CHLORIDE 0.9% 1,000 ML IV ONE (01:20)
[2025-03-17 01:28] LABS: Basophils # (A) 0.11 10*3/uL (0.00-0.10); Basophils % (A) 1.7 %; Eosinophils # (A) 0.23 10*3/uL (0.04-0.35); Eosinophils % (A) 3.5 %; HCT 36.7 % (37.2-46.3); HGB 12.5 g/dL (12.0-15.0); Lymphocytes # (A) 3.18 10*3/uL (0.90-5.00); Lymphocytes % (A) 48.8 %; MCH 32.1 pg (27.0-32.0); MCHC 34.1 g/dL (32.0-37.0); MCV 94.3 fL (80.0-97.0); Monocytes # (A) 0.44 10*3/uL (0.20-1.00); Monocytes % (A) 6.8 %; Neutrophils # (A) 2.54 10*3/uL (1.80-7.70); Neutrophils % (A) 39.0 %; Platelet Count 255 10*3/uL (140-440); RBC 3.89 10*6/uL (4.10-5.20); RDW 14.1 % (11.5-14.5); WBC 6.51 10*3/uL (4.50-10.00)
[2025-03-17] MEDS ORDERED: IBUPROFEN 600 MG TAB PO STA (01:34)
[2025-03-17 01:53] LABS: ALT 20 U/L (4-34); AST 29 U/L (14-36); African American GFR (CKD) >90 (>60 ml/min/1.73 sqM); Albumin 3.9 g/dL (3.5-5.0); Alkaline Phosphatase 61 U/L (38-126); Anion Gap 15 mmol/L; Blood Urea Nitrogen 2 mg/dL (7-17); Calcium 9.0 mg/dL (8.4-10.2); Carbon Dioxide 24 mmol/L (22-30); Chloride 107 mmol/L (98-107); Glucose 74 mg/dL (74-99); Magnesium 1.5 mg/dL (1.6-2.3); Non-African American GFR(CKD) >90 (>60 ml/min/1.73 sqM); Potassium 3.7 mmol/L (3.5-5.1); Sodium 146 mmol/L (137-145); Total Protein 6.2 g/dL (6.3-8.2)
--- NOTE | 2025-03-17 02:45 | CT ---
EXAM: CT Cervical Spine Without Intravenous Contrast CLINICAL HISTORY: ITS.REASON CT Reason: fall injury TECHNIQUE: Axial computed tomography images of the cervical spine without intravenous contrast. CTDI is 10.4 mGy and DLP is 316.2 mGy-cm. This CT exam was performed using one or more of the following dose reduction techniques: automated exposure control, adjustment of the mA and/or kV according to patient size, and/or use of iterative reconstruction technique. COMPARISON: No relevant prior studies available. FINDINGS: The vertebral body heights are maintained. The craniocervical junction is intact. The atlanto-dens interval is maintained. The dens is intact. ACDF at C3-4. The anterior plate is well seated. No CT evidence of hardware complication. There is no spondylolisthesis. Multilevel cervical spondylosis and degenerative disc disease. Straightening of the cervical lordosis. IMPRESSION: No acute fracture or subluxation of the cervical spine. ACDF at C3-4. The anterior plate is well seated. No CT evidence of hardware complication.
--- NOTE | 2025-03-17 05:52 | ED ---
Weakness HPI - General Chief complaint: Weakness Stated complaint: Weakness, ETOH Time Seen by Provider: 03/17/25 01:08 Source: patient Mode of arrival: EMS Limitations: no limitations - History of Present Illness Initial comments: This patient is a 65-year-old woman who presents to have evaluation of weakness and also chronic shoulder pain/weakness. Patient does admit to drinking, usually daily. Patient denies strokelike symptoms, no focal weakness. MD Complaint: generalized weakness, lack of energy -: days(s) Location: generalized Consistency: constant Improves with: none Worsens with: none Associated Symptoms: denies other symptoms - Related Data Home Medications Medication Instructions Recorded Confirmed minoxidiL [Loniten] 2.5 mg PO DAILY 11/09/24 03/06/25 HYDROcodone/APAP 7.5-325MG [[place] 1 tab PO Q6H PRN 03/06/25 03/06/25 7.5-325] Previous Rx's Medication Instructions Recorded LORazepam [Ativan] 0.5 mg PO TID PRN 3 Days #9 tab 03/10/25 Thiamine [Vitamin B-1] 100 mg PO DAILY 30 Days #30 tablet 03/10/25 Allergies Allergy/AdvReac Type Severity Reaction Status Date / Time shellfish derived [Shellfish] Allergy Severe Dyspnea Verified 03/25/25 05:04 iodine Allergy Rash/Hives Verified 03/25/25 05:04 Sulfa (Sulfonamide Allergy Rash/Hives Verified 03/25/25 05:04 Antibiotics) Review of Systems ROS Statement: Those systems with pertinent positive or pertinent negative responses have been documented in the HPI. ROS Other: All systems not noted in ROS Statement are negative. Constitutional: Reports: weakness. Denies: fever, chills Respiratory: Denies: cough, dyspnea Cardiovascular: Denies: chest pain, palpitations, edema, syncope Gastrointestinal: Denies: abdominal pain, nausea, vomiting Genitourinary: Denies: dysuria, hematuria Musculoskeletal: Reports: as per HPI, arthralgia Skin: Denies: rash Neurological: Denies: headache, weakness, numbness Past Medical History Past Medical History: Hypertension, Osteoarthritis (OA) Additional Past Medical History / Comment(s): Fall September 2019 with neck injury/L arm weak/decreased sensation and weakness to L leg-sent to [facility] and had cervical surgery, chronic cervical/L shoulder pain since surgery, chronic low back pain for years, ETOH abuse-pt states she has had withdrawals/shaking/weakness/nausea/one seizure long ago, alcoholic hepatitis, 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 History of Any Multi-Drug Resistant Organisms: None Reported Past Surgical History: AICD, Back Surgery Additional Past Surgical History / Comment(s): Cervical surgery at [facility] d/t injury, colonoscopies/benign polypectomy Past Anesthesia/Blood Transfusion Reactions: No Reported Reaction, Motion Sickness Additional Past Anesthesia/Blood Transfusion Reaction / Comment(s): PT has clausterphobia. Type of Cardiac Device: AICD Device Placement Date:: unknown Past Psychological History: Anxiety Past Alcohol Use History: Daily, Heavy - Past Family History Mother Family Medical History: Cancer Additional Family Medical History / Comment(s): Mother of melanoma Father Family Medical History: No Reported History Additional Family Medical History / Comment(s): Father is healthy General Exam Limitations: no limitations General appearance: alert, in no apparent distress Head exam: Present: atraumatic, normocephalic Eye exam: Present: normal appearance, PERRL, EOMI. Absent: scleral icterus, conjunctival injection ENT exam: Present: normal oropharynx Neck exam: Present: normal inspection, full ROM. Absent: tenderness Respiratory exam: Present: normal lung sounds bilaterally. Absent: respiratory distress, wheezes, rales, rhonchi, stridor, accessory muscle use Cardiovascular Exam: Present: regular rate, normal rhythm, normal heart sounds. Absent: systolic murmur, diastolic murmur, rubs, gallop GI/Abdominal exam: Present: soft. Absent: distended, tenderness, guarding, rebound, rigid, mass Extremities exam: Present: normal inspection, normal capillary refill. Absent: pedal edema, calf tenderness Back exam: Present: normal inspection, paraspinal tenderness, vertebral tenderness. Absent: CVA tenderness (R), CVA tenderness (L) Neurological exam: Present: alert, CN II-XII intact. Absent: motor sensory deficit Skin exam: Present: warm, dry, intact, normal color. Absent: rash Course Vital Signs 03/17/25 03/17/25 00:42 06:17 Temperature 98.8 F 97.9 F Pulse Rate 75 62 Respiratory 17 17 Rate Blood Pressure 101/69 109/73 O2 Sat by Pulse 98 96 Oximetry Procedures - [place] Protocol (Time Out) Nurse: Tyrell Hurt Medical Decision Making - Medical Decision Making Was pt. sent in by a medical professional or institution (, [place], [employer], urgent care, hospital, or group home...) When possible be specific @ -[No] Did you speak to anyone other than the patient for history (EMS, parent, family, police, friend...)? What history was obtained from this source @ -[No] Did you review nursing and triage notes (agree or disagree)? Why? @ -[I reviewed and agree with nursing and triage notes] Were old charts reviewed (outside hosp., previous admission, EMS record, old EKG, old radiological studies, urgent care reports/EKG's, group home records)? Report findings @ -[No old charts were reviewed] Differential Diagnosis (chest pain, altered mental status, abdominal pain women, abdominal pain men, vaginal bleeding, weakness, fever, dyspnea, syncope, headache, dizziness, GI bleed, back pain, seizure, CVA, palpatations, mental health, musculoskeletal)? @ -[Differential Weakness: Hypoglycemia, shock, sepsis, hyponatremia, anemia, infection, GA, ETOH, adverse medicine reaction, overdose, stroke, this is not meant to be an all-inclusive list. EKG interpreted by me (3pts min.). @ -[As above] X-rays interpreted by me (1pt min.). @ -[None done] CT interpreted by me (1pt min.). @ -[Interpreted by radiology U/S interpreted by me (1pt. min.). @ -[None done] What testing was considered but not performed or refused? (CT, X-rays, U/S, labs)? Why? @ -[None] What meds were considered but not given or refused? Why? @ -[None] Did you discuss the management of the patient with other professionals (professionals i.e. EDITH Bolton, S[employer] TE[employer]IST, lab, RT, psych nurse, social science research assistant, senior medical transcriptionist, teacher, administrative services officer, case liner)? Give summary @ -[No] Was smoking cessation discussed for >3mins.? @ -[No] Was critical care preformed (if so, how long)? @ -[No] Were there social determinants of health that impacted care today? How? (Homelessness, low income, unemployed, alcoholism, drug addiction, transportation, low edu. Level, literacy, decrease access to med. care, fdc, rehab)? @ -[No] Was there de-escalation of care discussed even if they declined (Discuss DNR or withdrawal of care, Hospice)? DNR status @ -[No] What co-morbidities impacted this encounter? (DM, HTN, Smoking, COPD, CAD, Cancer, CVA, ARF, Chemo, Hep., AIDS, mental health diagnosis, sleep apnea, morbid obesity)? @ -[None] Was patient admitted / discharged? Hospital course, mention meds given and route, prescriptions, significant lab abnormalities, going to OR and other pe rtinent info. @ -[Patient is 65-year-old woman here with generalized weakness and also with pain to the shoulder. She did have some tenderness and CT scan obtained to rule out fracture given that the patient has had previous falls related to chronic alcohol. The patient does have hypomagnesemia which may be contributing to the generalized weakness. The patient received supplementation and prescription for replacement. Discussed alcohol cessation. Undiagnosed new problem with uncertain prognosis? @ -[No] Drug Therapy requiring intensive monitoring for toxicity (Heparin, Nitro, Insulin, Cardizem)? @ -[No] Were any procedures done? @ -[No] Diagnosis/symptom? @ -[Generalized weakness Hypomagnesemia Acute alcohol intoxication Acute on chronic shoulder pain Acute, or Chronic, or Acute on Chronic? @ -[default] Uncomplicated (without systemic symptoms) or Complicated (systemic symptoms)? @ -[default] Side effects of treatment? @ -[No] Exacerbation, Progression, or Severe Exacerbation? @ -[No] Poses a threat to life or bodily function? How? (Chest pain, USA, GA, pneumonia, PE, COPD, DKA, ARF, appy, cholecystitis, CVA, Diverticulitis, Homicidal, Suicidal, threat to staff... and all critical care pts) @ -[No] All treatments are based on ideal body weight as in ED triage - Lab Data Result diagrams: 03/17/25 01:21 03/17/25 01:21 Lab Results 03/17/25 03/17/25 Range/Units 01:21 01:21 WBC 6.51 (4.50-10.00) 10*3/uL RBC 3.89 L (4.10-5.20) 10*6/uL Hgb 12.5 (12.0-15.0) g/dL Hct 36.7 L (37.2-46.3) % MCV 94.3 (80.0-97.0) fL MCH 32.1 H (27.0-32.0) pg MCHC 34.1 (32.0-37.0) g/dL Plt Count 255 (140-440) 10*3/uL MPV 9.2 L (9.5-12.2) fL Immature Gran % (Auto) 0.2 % Neutrophils % 39.0 % Lymphocytes % 48.8 % Monocytes % 6.8 % Eosinophils % 3.5 % Basophils % 1.7 % Immature Gran # 0.01 (0.00-0.04) 10*3/uL Neutrophils # 2.54 (1.80-7.70) 10*3/uL Lymphocytes # 3.18 (0.90-5.00) 10*3/uL Monocytes # 0.44 (0.20-1.00) 10*3/uL Eosinophils # 0.23 (0.04-0.35) 10*3/uL Basophils # 0.11 H (0.00-0.10) 10*3/uL Sodium 146 H (137-145) mmol/L Potassium 3.7 (3.5-5.1) mmol/L Chloride 107 (98-107) mmol/L Carbon Dioxide 24 (22-30) mmol/L Anion Gap 15 mmol/L BUN 2 L (7-17) mg/dL Creatinine 0.40 L (0.52-1.04) mg/dL Est GFR (CKD-EPI)AfAm >90 (>60 ml/min/1.73 sqM) Est GFR (CKD-EPI)NonAf >90 (>60 ml/min/1.73 sqM) Glucose 74 (74-99) mg/dL Calcium 9.0 (8.4-10.2) mg/dL Magnesium 1.5 L (1.6-2.3) mg/dL Total Bilirubin 0.3 (0.2-1.3) mg/dL AST 29 (14-36) U/L ALT 20 (4-34) U/L Alkaline Phosphatase 61 (38-126) U/L Total Protein 6.2 L (6.3-8.2) g/dL Albumin 3.9 (3.5-5.0) g/dL Serum Alcohol 268 H* mg/dL Disposition Clinical Impression: Hypomagnesemia, Acute alcohol intoxication, Shoulder injury Disposition: HOME SELF-CARE Condition: Good Instructions (If sedation given, give patient instructions): Rotator Cuff Injury (ED), Alcohol Intoxication (DC), Hypomagnesemia (ED) Is patient prescribed a controlled substance at d/c from ED?: No Referrals: Aileen Torres MD [Primary Care Provider] - 1-2 days Deandre Stone MD [STAFF PHYSICIAN] - 1-2 days
[2025-03-17] MEDS: MAGNESIUM OXIDE 400 MG TAB PO STA (06:14)
[2025-03-17 06:19] VITALS: BP 109/73; PULSE 62; TEMP 97.9
== END 2025-03-17 06:19 | disposition home or self-care (01) ==
LOC: EC 00:37
DX: S49.92XA Unspecified injury of left shoulder and upper arm, initial encounter (principal); E83.42 Hypomagnesemia; F10.129 Alcohol abuse with intoxication, unspecified; Z88.8 Allergy status to other drugs, medicaments and biological substances; Z88.2 Allergy status to sulfonamides; Z91.013 Allergy to seafood; Y90.8 Blood alcohol level of 240 mg/100 ml or more; X58.XXXA Exposure to other specified factors, initial encounter
CPT/HCPCS: 36415; 72125; 80053; 80320; 83735; 85025; 96360; 99285

== ENCOUNTER 2025-03-25 04:58 | Emergency (ER) | payer BC, OTHER ==
--- NOTE | 2025-03-25 05:11 | ED ---
Fall HPI - General Chief Complaint: Fall Stated Complaint: head injury Time Seen by Provider: 03/25/25 05:09 Source: patient, RN notes reviewed, old records reviewed Mode of arrival: EMS Limitations: no limitations - History of Present Illness Initial Comments: This is a 65-year-old female to the ER. She presents today for evaluation regards to fall multiple falls evaluation patient presents intoxicated to the ER. Patient presents by EMS without specific complaint history limited by intoxication MD Complaint: fall -: unknown When Fall Occurred: unsure Fall Witnessed: no Place Fall Occurred: home Loss of Consciousness: none Prolonged Down Time?: no Symptoms Prior to Fall: none Location: head, face Severity: moderate Severity scale (1-10): 2 Context: tripped/slipped, alcohol use Associated Symptoms: denies - Related Data Home Medications Medication Instructions Recorded Confirmed minoxidiL [Loniten] 2.5 mg PO DAILY 11/09/24 03/06/25 HYDROcodone/APAP 7.5-325MG [[place] 1 tab PO Q6H PRN 03/06/25 03/06/25 7.5-325] Previous Rx's Medication Instructions Recorded LORazepam [Ativan] 0.5 mg PO TID PRN 3 Days #9 tab 03/10/25 Thiamine [Vitamin B-1] 100 mg PO DAILY 30 Days #30 tablet 03/10/25 Allergies Allergy/AdvReac Type Severity Reaction Status Date / Time shellfish derived [Shellfish] Allergy Severe Dyspnea Verified 03/25/25 05:04 iodine Allergy Rash/Hives Verified 03/25/25 05:04 Sulfa (Sulfonamide Allergy Rash/Hives Verified 03/25/25 05:04 Antibiotics) Review of Systems ROS Statement: Those systems with pertinent positive or pertinent negative responses have been documented in the HPI. ROS Other: All systems not noted in ROS Statement are negative. 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 History of Any Multi-Drug Resistant Organisms: None Reported Past Surgical History: AICD, Back Surgery Additional Past Surgical History / Comment(s): Cervical surgery at [facility] d/t injury, colonoscopies/benign polypectomy Past Anesthesia/Blood Transfusion Reactions: No Reported Reaction, Motion Sickness Additional Past Anesthesia/Blood Transfusion Reaction / Comment(s): PT has clausterphobia. Type of Cardiac Device: AICD Device Placement Date:: unknown Past Psychological History: Anxiety Past Alcohol Use History: Daily, Heavy - Past Family History Mother Family Medical History: Cancer Additional Family Medical History / Comment(s): Mother of melanoma Father Family Medical History: No Reported History Additional Family Medical History / Comment(s): Father is healthy General Exam Limitations: no limitations General appearance: alert, in no apparent distress Head exam: Present: atraumatic, normocephalic, normal inspection Eye exam: Present: normal appearance, PERRL, EOMI. Absent: scleral icterus, conjunctival injection, periorbital swelling ENT exam: Present: normal exam, mucous membranes moist Neck exam: Present: normal inspection. Absent: tenderness, meningismus, lymphad enopathy Respiratory exam: Present: normal lung sounds bilaterally. Absent: respiratory distress, wheezes, rales, rhonchi, stridor Cardiovascular Exam: Present: regular rate, normal rhythm, normal heart sounds. Absent: systolic murmur, diastolic murmur, rubs, gallop, clicks GI/Abdominal exam: Present: soft, normal bowel sounds. Absent: distended, tenderness, guarding, rebound, rigid Extremities exam: Present: normal inspection, full ROM, normal capillary refill. Absent: tenderness, pedal edema, joint swelling, calf tenderness Back exam: Present: normal inspection Neurological exam: Present: alert, oriented X3, CN II-XII intact Psychiatric exam: Present: normal affect, normal mood Skin exam: Present: warm, dry, intact, normal color. Absent: rash Course Vital Signs 03/25/25 05:01 Pulse Rate 80 Respiratory 19 Rate Blood Pressure 131/78 O2 Sat by Pulse 99 Oximetry - Reevaluation(s) Reevaluation #1: 03/25/25 06:21 Medical records reviewed Reevaluation #2: 03/25/25 06:21 Patient symptoms unchanged Reevaluation #3: 03/25/25 06:21 Patient informed of results and questions answered Reevaluation #4: Was pt. sent in by a medical professional or institution (, EDITH, [employer], urgent care, hospital, or intermediate...) When possible be specific @ -no Did you speak to anyone other than the patient for history (EMS, parent, family, police, friend...)? What history was obtained from this source @ -no Did you review nursing and triage notes (agree or disagree)? Why? @ -agree Are old charts reviewed (outside hosp., previous admission, EMS record, old EKG, old radiological studies, urgent care reports/EKG's, intermediate records)? Report findings @ -yes Differential Diagnosis (chest pain, altered mental status, abdominal pain women, abdominal pain men, vaginal bleeding, weakness, fever, dyspnea, syncope, headache, dizziness, GI bleed, back pain, seizure, CVA, palpatations, mental health, musculoskeletal)? @ -prior EKG interpreted by me (3pts min.). @ -yes X-rays interpreted by me (1pt min.). @ -yes negative for acute disease CT interpreted by me (1pt min.). @ -no U/S interpreted by me (1pt. min.). @ -no What testing was considered but not performed or refused? (CT, X-rays, U/S, la bs)? Why? @ -none What meds were considered but not given or refused? Why? @ -none Did you discuss the management of the patient with other professionals (professionals i.e. , EDITH, [employer], lab, RT, psych nurse, neonatal social worker, corporate lawyer, teacher, jailer/training officer, registered nurse hh case manager)? Give summary @ -no Was smoking cessation discussed for >3mins.? @ -no Was critical care preformed (if so, how long)? @ -no Were there social determinants of health that impacted care today? How? (Homelessness, low income, unemployed, alcoholism, drug addiction, transportation, low edu. Level, literacy, decrease access to med. care, shelter, rehab)? @ -none Was there de-escalation of care discussed even if they declined (Discuss DNR or withdrawal of care, Hospice)? DNR status @ -no What co-morbidities impacted this encounter? (DM, HTN, Smoking, COPD, CAD, Cancer, CVA, ARF, Chemo, Hep., AIDS, mental health diagnosis, sleep apnea, morbid obesity)? @ -none Was patient admitted / discharged? Hospital course, mention meds given and route, prescriptions, significant lab abnormalities, going to OR and other pertinent info. @ - Undiagnosed new problem with uncertain prognosis? @ -no Drug Therapy requiring intensive monitoring for toxicity (Heparin, Nitro, Insulin, Cardizem)? @ -no Were any procedures done? @ -no Diagnosis/symptom? @ - Acute, or Chronic, or Acute on Chronic? @ -Acute Uncomplicated (without systemic symptoms) or Complicated (systemic symptoms)? @ -Complicated Side effects of treatment? @ -no Exacerbation, Progression, or Severe Exacerbation? @ -exacerbation Poses a threat to life or bodily function? How? (Chest pain, [place], [place], pneumonia, PE, COPD, DKA, ARF, appy, cholecystitis, CVA, Diverticulitis, Homicidal, Suicidal, threat to staff... and all critical care pts) @ -yes Reevaluation #5: Differential Altered Mental Status: Hypoglycemia, DKA, hypercapnia, ETOH, overdose, CO poisoning, trauma, myxedema coma, HTN encephalopathy, infection, encephalitis, psychosis, intercranial hemorrhage, hepatic encephalopathy, meningitis, CVA, this is not meant to be an all-inclusive list Medical Decision Making - Medical Decision Making 65 female to the ER for evaluation patient presents today for evaluation regards to multiple falls no traumatic injury patient can be discharged home, acutely intoxicated but improving throughout ER stay - Radiology Data Radiology results: report reviewed (CT brain C-spine chest x-ray is negative for acute disease), image reviewed Disposition Clinical Impression: Weakness, Fall Disposition: HOME SELF-CARE Condition: Good Instructions (If sedation given, give patient instructions): Fall Prevention for Older Adults (ED) Is patient prescribed a controlled substance at d/c from ED?: No Referrals: Aileen Torres MD [Primary Care Provider] - 1-2 days Time of Disposition: 06:20
--- NOTE | 2025-03-25 06:13 | CT ---
EXAM: CT Head Without Intravenous Contrast CLINICAL HISTORY: ITS.REASON CT Reason: fall TECHNIQUE: Axial computed tomography images of the head/brain without intravenous contrast. CTDI is 45.2 mGy and DLP is 1074 mGy-cm. This CT exam was performed using one or more of the following dose reduction techniques: automated exposure control, adjustment of the mA and/or kV according to patient size, and/or use of iterative reconstruction technique. COMPARISON: 2022 FINDINGS: Brain: Areas of decreased attenuation in the deep cerebral white matter are consistent with small vessel ischemic/degenerative changes. The cerebral and cerebellar sulci are prominent consistent with brain atrophy. No hemorrhage. Ventricles: Unremarkable. No ventriculomegaly. Bones/joints: Unremarkable. No acute fracture. Soft tissues: Unremarkable. Vasculature: Atherosclerotic disease. Sinuses: Mild mucosal thickening of the ethmoid air cells and right maxillary sinus. Frothy secretions in the right sphenoid sinus. Mastoid air cells: Unremarkable as visualized. No mastoid effusion. IMPRESSION: 1. No acute intracranial abnormality. 2. Small vessel ischemic/degenerative changes. Cerebral and cerebellar atrophy. EXAM: CT Cervical Spine Without Intravenous Contrast CLINICAL HISTORY: ITS.REASON CT Reason: fall TECHNIQUE: Axial computed tomography images of the cervical spine without intravenous contrast. CTDI is 8.6 mGy and DLP is 264.9 mGy-cm. This CT exam was performed using one or more of the following dose reduction techniques: automated exposure control, adjustment of the mA and/or kV according to patient size, and/or use of iterative reconstruction technique. COMPARISON: No relevant prior studies available. FINDINGS: Vertebrae: Moderate multilevel facet hypertrophy. Discs/spinal canal/neural foramina: Anterior fusion hardware of C3-C4 with intervertebral body disc placement. Multilevel degenerative disc space height loss. Moderate bilateral neuroforaminal narrowing at C2-C3. Mild to moderate bilateral neuroforaminal narrowing at C3-C4. Moderate to severe right neuroforaminal narrowing at C4-C5. Mild left neuroforaminal narrowing at C4-C5. Moderate right neuroforaminal narrowing at C5-C6. Mild left neuroforaminal narrowing at C5-C6. Mild bilateral foraminal narrowing at C6-C7. Moderate bilateral neuroforaminal narrowing at C7-T1. Soft tissues: See above. IMPRESSION: No acute fracture or listhesis. No high-grade spinal canal stenosis. Degenerative spondylosis with multilevel moderate severe neuroforaminal narrowing as described above.
--- NOTE | 2025-03-25 06:18 | XR ---
EXAM: XR Chest, 1 View CLINICAL HISTORY: ITS.REASON XR Reason: fall TECHNIQUE: Frontal view of the chest. COMPARISON: No relevant prior studies available. FINDINGS: Lungs: Unremarkable. No consolidation. Pleural space: Unremarkable. No pneumothorax. Heart: Unremarkable. No cardiomegaly. Mediastinum: Unremarkable. Normal mediastinal contour. Bones/joints: Degenerative changes in the thoracic spine. No acute fracture. IMPRESSION: No acute findings in the chest.
--- NOTE | 2025-03-25 06:21 | XR ---
EXAM: XR Pelvis, 1 or 2 Views CLINICAL HISTORY: ITS.REASON XR Reason: fall TECHNIQUE: Frontal view of the pelvis. COMPARISON: No relevant prior studies available. FINDINGS: Bones/joints: Moderate osteoarthritis of bilateral hips. No acute fracture. No dislocation. Soft tissues: Unremarkable. IMPRESSION: No acute fracture.
[2025-03-25 06:47] VITALS: BP 137/74; PULSE 70; RESP 17
== END 2025-03-25 06:47 | disposition home or self-care (01) ==
LOC: EC 04:58
DX: R53.1 Weakness (principal); Z88.2 Allergy status to sulfonamides; Z91.013 Allergy to seafood; Z88.8 Allergy status to other drugs, medicaments and biological substances; W19.XXXA Unspecified fall, initial encounter
CPT/HCPCS: 70450; 71045; 72125; 72170; 99284

== ENCOUNTER 2025-04-04 13:55 | Emergency (ER) | payer BC, OTHER ==
--- NOTE | 2025-04-04 14:42 | ED ---
General Adult HPI - General Chief complaint: Alcohol Stated complaint: ETOH Time Seen by Provider: 04/04/25 14:00 Source: patient, EMS, RN notes reviewed, old records reviewed Mode of arrival: EMS Limitations: no limitations - History of Present Illness Initial comments: This is a 65-year-old female who presents emergency department because she is not feeling well. Patient also states she has been drinking today. Patient is not specific she just states overall she is not feeling well. Patient denies any chest pain difficulty breathing. Patient Nuys any fever chills or cough. Patient denies abdominal pain patient has nausea vomiting diarrhea. Patient states she just overall thinks she sick. Patient states she has been drinking beer this morning - Related Data Home Medications Medication Instructions Recorded Confirmed minoxidiL [Loniten] 2.5 mg PO DAILY 11/09/24 04/04/25 Allergies Allergy/AdvReac Type Severity Reaction Status Date / Time shellfish derived [Shellfish] Allergy Severe Dyspnea Verified 04/04/25 15:34 iodine Allergy Rash/Hives Verified 04/04/25 15:34 Sulfa (Sulfonamide Allergy Rash/Hives Verified 04/04/25 15:34 Antibiotics) Review of Systems ROS Statement: Those systems with pertinent positive or pertinent negative responses have been documented in the HPI. ROS Other: All systems not noted in ROS Statement are negative. 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 History of Any Multi-Drug Resistant Organisms: None Reported Past Surgical History: AICD, Back Surgery Additional Past Surgical History / Comment(s): Cervical surgery at [facility] d/t injury, colonoscopies/benign polypectomy Past Anesthesia/Blood Transfusion Reactions: No Reported Reaction, Motion Sick ness Additional Past Anesthesia/Blood Transfusion Reaction / Comment(s): PT has clausterphobia. Type of Cardiac Device: AICD Device Placement Date:: unknown Past Psychological History: Anxiety Past Alcohol Use History: Daily, Heavy - Past Family History Mother Family Medical History: Cancer Additional Family Medical History / Comment(s): Mother of melanoma Father Family Medical History: No Reported History Additional Family Medical History / Comment(s): Father is healthy General Exam - General Exam Comments Initial Comments: GENERAL: Patient is well-developed and well-nourished. Patient is nontoxic and well- hydrated and is in mild distress. Patient appears intoxicated ENT: Neck is soft and supple. No significant lymphadenopathy is noted. Oropharynx is clear. Moist mucous membranes. Neck has full range of motion without eliciting any pain. EYES: The sclera were anicteric and conjunctiva were pink and moist. Extraocular movements were intact and pupils were equal round and reactive to light. Eyelids were unremarkable. PULMONARY: Unlabored respirations. Good breath sounds bilaterally. No audible rales rhonchi or wheezing was noted. CARDIOVASCULAR: There is a regular rate and rhythm without any murmurs gallops or rubs. ABDOMEN: Soft and nontender with normal bowel sounds. SKIN: Skin is clear with no lesions or rashes and otherwise unremarkable. NEUROLOGIC: Patient is alert and oriented x3. Cranial nerves II through XII are grossly intact. Motor and sensory are also intact. Normal speech, volume and content. Symmetrical smile. MUSCULOSKELETAL: Normal extremities with adequate strength and full range of motion. LYMPHATICS: No significant lymphadenopathy is noted PSYCHIATRIC: Normal psychiatric evaluation. Limitations: no limitations Course Vital Signs 04/04/25 04/04/25 04/04/25 13:56 17:25 17:34 Temperature 97.6 F 99.2 F Pulse Rate 83 97 Respiratory 18 16 Rate Blood Pressure 123/83 171/99 O2 Sat by Pulse 98 99 Oximetry 04/04/25 18:04 Temperature Pulse Rate 76 Respiratory 16 Rate Blood Pressure 127/66 O2 Sat by Pulse 96 Oximetry Medical Decision Making - Medical Decision Making Was pt. sent in by a medical professional or institution (, EDITH, BIOMETRICS ANALYST, urgent care, hospital, or fdc...) When possible be specific @ -No Did you speak to anyone other than the patient for history (EMS, parent, family, police, friend...)? What history was obtained from this source @ -No Did you review nursing and triage notes (agree or disagree)? Why? @ -I reviewed and agree with nursing and triage notes Were old charts reviewed (outside hosp., previous admission, EMS record, old EKG, old radiological studies, urgent care reports/EKG's, fdc records)? Report findings @ -No old charts were reviewed Differential Diagnosis? @ -Alcohol intoxication, alcohol withdrawal, transaminitis this is not an all- inclusive list EKG interpreted by me (3pts min.). @ -As above X-rays interpreted by me (1pt min.). @ -None done CT interpreted by me (1pt min.). @ -None done U/S interpreted by me (1pt. min.). @ -None done What testing was considered but not performed or refused? (CT, X-rays, U/S, labs)? Why? @ -None What meds were considered but not given or refused? Why? @ -None Did you discuss the management of the patient with other professionals (professionals i.e. , PA, BIOMETRICS ANALYST, lab, RT, psych nurse, social services designee, supervisor blast furnace auxiliaries, teacher, juvenile officer, case finishing machine adjuster)? Give summary @ -No Was smoking cessation discussed for >3mins.? @ -No Was critical care preformed (if so, how long)? @ -No Were there social determinants of health that impacted care today? How? (Homelessness, low income, unemployed, alcoholism, drug addiction, transportation, low edu. Level, literacy, decrease access to med. care, assisted, rehab)? @ -No Was there de-escalation of care discussed even if they declined (Discuss DNR or withdrawal of care, Hospice)? DNR status @ -No What co-morbidities impacted this encounter? (DM, HTN, Smoking, COPD, CAD, Canc er, CVA, ARF, Chemo, Hep., AIDS, mental health diagnosis, sleep apnea, morbid obesity)? @ -None Was patient admitted / discharged? Hospital course, mention meds given and route, prescriptions, significant lab abnormalities, going to OR and other pertinent info. @ -Patient was resting comfortably throughout her ED stay her alcohol level was elevated on arrival. Patient was watching TV and eating for the majority of her stay. Patient's alcohol came down nicely after than patient was clinically s anne marie so she was discharged home without complaints. Undiagnosed new problem with uncertain prognosis? @ -No Drug Therapy requiring intensive monitoring for toxicity (Heparin, Nitro, Insulin, Cardizem)? @ -No Were any procedures done? @ -No Diagnosis/symptom? @ -Alcohol intoxication Acute, or Chronic, or Acute on Chronic? @ -Acute Uncomplicated (without systemic symptoms) or Complicated (systemic symptoms)? @ -Default Side effects of treatment? @ -No Exacerbation, Progression, or Severe Exacerbation? @ -No Poses a threat to life or bodily function? How? (Chest pain, USA, DC, pneumonia, PE, COPD, DKA, ARF, appy, cholecystitis, CVA, Diverticulitis, Homicidal, Suicidal, threat to staff... and all critical care pts) @ -No - Lab Data Result diagrams: 04/04/25 14:52 04/04/25 14:52 Lab Results 04/04/25 04/04/25 Range/Units 14:52 14:52 WBC 10.48 H (4.50-10.00) 10*3/uL RBC 4.60 (4.10-5.20) 10*6/uL Hgb 15.3 H (12.0-15.0) g/dL Hct 42.6 (37.2-46.3) % MCV 92.6 (80.0-97.0) fL MCH 33.3 H (27.0-32.0) pg MCHC 35.9 (32.0-37.0) g/dL Plt Count 175 (140-440) 10*3/uL MPV 8.8 L (9.5-12.2) fL Immature Gran % (Auto) 0.4 % Neutrophils % 61.0 % Lymphocytes % 31.0 % Monocytes % 6.2 % Eosinophils % 0.4 % Basophils % 1.0 % Immature Gran # 0.04 (0.00-0.04) 10*3/uL Neutrophils # 6.39 (1.80-7.70) 10*3/uL Lymphocytes # 3.25 (0.90-5.00) 10*3/uL Monocytes # 0.65 (0.20-1.00) 10*3/uL Eosinophils # 0.04 (0.04-0.35) 10*3/uL Basophils # 0.11 H (0.00-0.10) 10*3/uL Sodium 139 (137-145) mmol/L Potassium 3.9 (3.5-5.1) mmol/L Chloride 100 (98-107) mmol/L Carbon Dioxide 18 L (22-30) mmol/L Anion Gap 21 mmol/L BUN 8 (7-17) mg/dL Creatinine 0.38 L (0.52-1.04) mg/dL Est GFR (CKD-EPI)AfAm >90 (>60 ml/min/1.73 sqM) Est GFR (CKD-EPI)NonAf >90 (>60 ml/min/1.73 sqM) Glucose 96 (74-99) mg/dL Calcium 8.7 (8.4-10.2) mg/dL Magnesium 1.9 (1.6-2.3) mg/dL Total Bilirubin 0.6 (0.2-1.3) mg/dL AST 54 H (14-36) U/L ALT 42 H (4-34) U/L Alkaline Phosphatase 82 (38-126) U/L Total Protein 7.7 (6.3-8.2) g/dL Albumin 4.9 (3.5-5.0) g/dL Serum Alcohol 247 H* mg/dL Disposition Clinical Impression: Alcohol intoxication Disposition: HOME SELF-CARE Instructions (If sedation given, give patient instructions): Alcohol Intoxication (ED) Is patient prescribed a controlled substance at d/c from ED?: No Referrals: Aileen Torres MD [Primary Care Provider] - 1-2 days Time of Disposition: 20:02
[2025-04-04] MEDS: SODIUM CHLORIDE 0.9% 500 ML 500 ML IV ONE (14:50)
[2025-04-04] MEDS: SODIUM CHLORIDE 0.9% 1,000 ML IV ONE (14:51)
[2025-04-04 14:59] LABS: Basophils # (A) 0.11 10*3/uL (0.00-0.10); Basophils % (A) 1.0 %; Eosinophils # (A) 0.04 10*3/uL (0.04-0.35); Eosinophils % (A) 0.4 %; HCT 42.6 % (37.2-46.3); HGB 15.3 g/dL (12.0-15.0); Lymphocytes # (A) 3.25 10*3/uL (0.90-5.00); Lymphocytes % (A) 31.0 %; MCH 33.3 pg (27.0-32.0); MCHC 35.9 g/dL (32.0-37.0); MCV 92.6 fL (80.0-97.0); Monocytes # (A) 0.65 10*3/uL (0.20-1.00); Monocytes % (A) 6.2 %; Neutrophils # (A) 6.39 10*3/uL (1.80-7.70); Neutrophils % (A) 61.0 %; Platelet Count 175 10*3/uL (140-440); RBC 4.60 10*6/uL (4.10-5.20); RDW 13.5 % (11.5-14.5); WBC 10.48 10*3/uL (4.50-10.00)
[2025-04-04 15:34] LABS: ALT 42 U/L (4-34); AST 54 U/L (14-36); African American GFR (CKD) >90 (>60 ml/min/1.73 sqM); Albumin 4.9 g/dL (3.5-5.0); Alkaline Phosphatase 82 U/L (38-126); Anion Gap 21 mmol/L; Blood Urea Nitrogen 8 mg/dL (7-17); Calcium 8.7 mg/dL (8.4-10.2); Carbon Dioxide 18 mmol/L (22-30); Chloride 100 mmol/L (98-107); Glucose 96 mg/dL (74-99); Magnesium 1.9 mg/dL (1.6-2.3); Non-African American GFR(CKD) >90 (>60 ml/min/1.73 sqM); Potassium 3.9 mmol/L (3.5-5.1); Sodium 139 mmol/L (137-145); Total Protein 7.7 g/dL (6.3-8.2)
[2025-04-04 17:35] VITALS: TEMP 99.2
[2025-04-04] MEDS: ACETAMINOPHEN TAB 325 MG TAB PO STA (20:11)
[2025-04-04 20:53] VITALS: BP 132/85; PULSE 90; RESP 18
== END 2025-04-04 21:08 | disposition home or self-care (01) ==
LOC: EC 13:55
DX: F10.129 Alcohol abuse with intoxication, unspecified (principal); Z91.013 Allergy to seafood; Z88.2 Allergy status to sulfonamides; Z91.041 Radiographic dye allergy status
CPT/HCPCS: 36415; 51798; 80053; 80320; 83735; 85025; 96360; 96361; 99284

== ENCOUNTER 2025-04-05 14:10 | Emergency (ER) | payer BC, OTHER ==
[2025-04-05 14:26] VITALS: TEMP 98.2
--- NOTE | 2025-04-05 14:46 | ED ---
Abdominal Pain HPI - General Source: patient, EMS, RN notes reviewed Mode of arrival: EMS Limitations: no limitations - History of Present Illness MD Complaint: abdominal pain <Lizbeth Monahan - Last Filed: 04/05/25 16:44> - General Source: patient, EMS, RN notes reviewed Mode of arrival: EMS Limitations: no limitations - History of Present Illness MD Complaint: abdominal pain <Jose Hdez - Last Filed: 04/10/25 12:31> - General Chief Complaint: Abdominal Pain Stated Complaint: Diarrhea Time Seen by Provider: 04/05/25 14:34 - History of Present Illness Initial Comments: This is a 65-year-old female who presents to the emergency department for abdominal pain, nausea, vomiting, and diarrhea. States that it started an hour ago. Pain is in the center of the abdomen. Denies any chest pain or shortness of breath. She is well-known to this emergency department for similar complaints as well as acute alcohol intoxication. She does admit to consuming alcohol again today. She was evaluated here yesterday for "feeling unwell" and discharged home. (Lizbeth Monahan) - Related Data Home Medications Medication Instructions Recorded Confirmed minoxidiL [Loniten] 2.5 mg PO DAILY 11/09/24 04/04/25 Previous Rx's Medication Instructions Recorded Ciprofloxacin HCl [Cipro] 500 mg PO Q12HR #20 tablet 04/05/25 Allergies Allergy/AdvReac Type Severity Reaction Status Date / Time shellfish derived [Shellfish] Allergy Severe Dyspnea Verified 04/09/25 19:36 iodine Allergy Rash/Hives Verified 04/09/25 19:36 Sulfa (Sulfonamide Allergy Rash/Hives Verified 04/09/25 19:36 Antibiotics) Review of Systems ROS Other: All systems not noted in ROS Statement are negative. <Lizbeth Monahan - Last Filed: 04/05/25 16:44> ROS Other: All systems not noted in ROS Statement are negative. <Jose Hdez - Last Filed: 04/10/25 12:31> ROS Statement: Those systems with pertinent positive or pertinent negative responses have been documented in the HPI. 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 History of Any Multi-Drug Resistant Organisms: None Reported Past Surgical History: AICD, Back Surgery Additional Past Surgical History / Comment(s): Cervical surgery at [facility] d/t injury, colonoscopies/benign polypectomy Past Anesthesia/Blood Transfusion Reactions: No Reported Reaction, Motion Sickness Additional Past Anesthesia/Blood Transfusion Reaction / Comment(s): PT has clausterphobia. Type of Cardiac Device: AICD Device Placement Date:: unknown Past Psychological History: Anxiety Past Alcohol Use History: Daily, Heavy - Past Family History Mother Family Medical History: Cancer Additional Family Medical History / Comment(s): Mother of melanoma Father Family Medical History: No Reported History Additional Family Medical History / Comment(s): Father is healthy <Lizbeth Monahan - Last Filed: 04/05/25 16:44> General Exam Limitations: no limitations General appearance: alert, in no apparent distress Head exam: Present: atraumatic, normocephalic, normal inspection Respiratory exam: Present: normal lung sounds bilaterally. Absent: respiratory distress, wheezes, rales, rhonchi, stridor Cardiovascular Exam: Present: regular rate, normal rhythm GI/Abdominal exam: Present: soft. Absent: distended, tenderness Neurological exam: Present: alert, oriented X3, CN II-XII intact Psychiatric exam: Present: normal affect, normal mood Skin exam: Present: warm, dry, intact, normal color. Absent: rash <Lizbeth Monahan - Last Filed: 04/05/25 16:44> Course Vital Signs 04/05/25 04/05/25 04/05/25 14:18 21:09 23:34 Temperature 98.2 F Pulse Rate 88 79 84 Respiratory 17 16 16 Rate Blood Pressure 133/83 131/77 151/88 O2 Sat by Pulse 98 96 98 Oximetry 04/06/25 00:48 Temperature Pulse Rate Respiratory 16 Rate Blood Pressure O2 Sat by Pulse Oximetry Medical Decision Making - Lab Data Result diagrams: 04/05/25 15:40 04/05/25 15:40 - Radiology Data Radiology results: report reviewed, image reviewed <Lizbeth Monahan - Last Filed: 04/05/25 16:44> - Lab Data Result diagrams: 04/05/25 15:40 04/05/25 15:40 <Jose Hdez - Last Filed: 04/10/25 12:31> - Medical Decision Making This is a 65-year-old female who presents to the emergency department for abdominal pain, nausea, vomiting, and diarrhea. Was pt. sent in by a medical professional or institution? @ -No Did you speak to anyone other than the patient for history? @ -No Did you review nursing and triage notes? @ -Yes, and I agree, it is accurate with regards to the patient's symptoms. Were old charts reviewed? @ -No Differential Diagnosis? @ -Differential Abdominal Pain Women: Appendicitis, Cholecystitis, diverticulosis, ischemic bowel, pancreatitis, hepatitis, UTI, gastroenteritis, AAA, incarcerated hernia, bowel obstruction, constipation, inflammatory bowel, hepatitis, peptic ulcer disease, splenic infarction, perforated viscus, vulvitis, ovarian torsion, PID, kidney stone, placenta abruption, this is not meant to be an all-inclusive list EKG interpreted by me (3pts min.)? @ -EKG interpreted by me demonstrating the following: Sinus rhythm. Ventricular rate 78 bpm, AZ interval 163 ms, QRS duration 98 ms, QTc 443 ms. X-rays interpreted by me (1pt min.)? @ -KUB x-ray obtained. My interpretation identifies no dilation of the bowel loops. CT interpreted by me (1pt min.)? @ -Not obtained U/S interpreted by me (1pt. min.)? @ -Not obtained What testing was considered but not performed? (CT, X-rays, U/S, labs)? Why? @ -None What meds were considered but not given? Why? @ -None Did you discuss the management of the patient with other professionals? @ -No Did you reconcile home meds? @ -No Was smoking cessation discussed for >3mins.? @ -No Was critical care preformed (if so, how long)? @ -No Were there social determinants of health that impacted care today? How? (Homelessness, low income, unemployed, alcoholism, drug addiction, transportation, low edu. Level, literacy, decrease access to med. care, [facility], rehab)? @ -No Was there de-escalation of care discussed even if they declined? (Discuss DNR or withdrawal of care, Hospice)? @ -No What co-morbidities impacted this encounter? (DM, HTN, Smoking, COPD, CAD, Cancer, CVA, Hep., AIDS, mental health diagnosis, sleep apnea, morbid obesity)? @ -Alcoholism Was patient admitted / discharged? @ -Lab work demonstrates mild leukocytosis with a white blood cell count 10.6. Lactic acid elevated at 3.6 and alcohol level elevated at 212. These findings are fairly consistent with what the patient has experienced when she has been here in the past. KUB x-ray obtained revealing no acute findings. She was treated with IV fluids, Toradol, Bentyl, and Zofran. Case signed out to Jose Hdez PA-C, at shift completion pending UA results and disposition. Undiagnosed new problem with uncertain prognosis? @ -None Drug Therapy requiring intensive monitoring for toxicity (Heparin, Nitro, Insulin, Cardizem)? @ -None Were any procedures done? @ -None (Lizbeth Monahan) Was patient admitted / discharged? Hospital course, mention meds given and route, prescriptions, significant lab abnormalities, going to OR and other pertinent info. @ -Patient discussed and care passed from Lizbeth Dailey PA-C. Patient provided IV Toradol for ongoing headache. UA positive for UTI and microscopic hematuria. Urine toxicology positive for benzodiazepines. Patient provided additional IV normal saline. Given IV Rocephin, Toradol, Zofran. IV Ativan given for tremors associated with alcohol use. Final lactic acid prior to discharge 2.1. Patient discharged with Zofran starter pack and ciprofloxacin sent to patient's pharmacy. Advise follow-up with PCP in the next 24-[address] patient with Dr. Chacon. Undiagnosed new problem with uncertain prognosis? @ -No Drug Therapy requiring intensive monitoring for toxicity (Heparin, Nitro, Insulin, Cardizem)? @ -No Were any procedures done? @ -No Diagnosis/symptom? @ -Urinary tract infection, alcohol abuse, lactic acidosis Acute, or Chronic, or Acute on Chronic? @ -Acute Uncomplicated (without systemic symptoms) or Complicated (systemic symptoms)? @ -Complicated Side effects of treatment? @ -No Exacerbation, Progression, or Severe Exacerbation? @ -No Poses a threat to life or bodily function? How? (Chest pain, [place], [place], pneumonia, PE, COPD, DKA, ARF, appy, cholecystitis, CVA, Diverticulitis, Homicidal, Suicidal, threat to staff... and all critical care pts) @ -No (Jose Hdez) - Lab Data Lab Results 04/05/25 04/05/25 04/05/25 Range/Units 15:40 15:40 15:40 WBC 10.70 H (4.50-10.00) 10*3/uL RBC 4.62 (4.10-5.20) 10*6/uL Hgb 15.5 H (12.0-15.0) g/dL Hct 42.6 (37.2-46.3) % MCV 92.2 (80.0-97.0) fL MCH 33.5 H (27.0-32.0) pg MCHC 36.4 (32.0-37.0) g/dL Plt Count 189 (140-440) 10*3/uL MPV 9.1 L (9.5-12.2) fL Immature Gran % (Auto) 0.5 % Neutrophils % 59.6 % Lymphocytes % 30.4 % Monocytes % 7.1 % Eosinophils % 1.3 % Basophils % 1.1 % Immature Gran # 0.05 H (0.00-0.04) 10*3/uL Neutrophils # 6.38 (1.80-7.70) 10*3/uL Lymphocytes # 3.25 (0.90-5.00) 10*3/uL Monocytes # 0.76 (0.20-1.00) 10*3/uL Eosinophils # 0.14 (0.04-0.35) 10*3/uL Basophils # 0.12 H (0.00-0.10) 10*3/uL Sodium 137 (137-145) mmol/L Potassium 4.1 (3.5-5.1) mmol/L Chloride 100 (98-107) mmol/L Carbon Dioxide 17 L (22-30) mmol/L Anion Gap 20 mmol/L BUN <2 L (7-17) mg/dL Creatinine 0.36 L (0.52-1.04) mg/dL Est GFR (CKD-EPI)AfAm >90 (>60 ml/min/1.73 sqM) Est GFR (CKD-EPI)NonAf >90 (>60 ml/min/1.73 sqM) Glucose 94 (74-99) mg/dL Lactic Ac Sepsis Rflx Plasma Lactic Acid Samuel 3.6 H* (0.7-2.0) mmol/L Calcium 9.4 (8.4-10.2) mg/dL Magnesium 1.8 (1.6-2.3) mg/dL Total Bilirubin 0.9 (0.2-1.3) mg/dL AST 42 H (14-36) U/L ALT 34 (4-34) U/L Alkaline Phosphatase 82 (38-126) U/L Total Protein 8.0 (6.3-8.2) g/dL Albumin 5.0 (3.5-5.0) g/dL Amylase 54 (30-110) U/L Lipase 81 (23-300) U/L Urine Color Urine Appearance (Clear) Urine pH (5.0-8.0) Ur Specific [place] (1.001-1.035) Urine Protein (Negative) Urine Glucose (UA) (Negative) Urine Ketones (Negative) Urine Blood (Negative) Urine Nitrite (Negative) Urine Bilirubin (Negative) Urine Urobilinogen (<2.0) mg/dL Ur Leukocyte Esterase (Negative) Urine RBC (0-5) /hpf Urine WBC (0-5) /hpf Urine WBC Clumps (None) /hpf Ur Squamous Epith Cells (0-4) /hpf Urine Bacteria (None) /hpf Urine Opiates Screen (NotDetected) Ur Oxycodone Screen (NotDetected) Urine Methadone Screen (NotDetected) Ur Barbiturates Screen (NotDetected) U Tricyclic Antidepress (NotDetected) Ur Phencyclidine Scrn (NotDetected) Ur Amphetamines Screen (NotDetected) U Methamphetamines Scrn (NotDetected) U Benzodiazepines Scrn (NotDetected) Urine Cocaine Screen (NotDetected) U Marijuana (THC) Screen (NotDetected) Serum Alcohol 212 H* mg/dL 04/05/25 04/05/25 04/05/25 Range/Units 16:36 18:35 18:35 WBC (4.50-10.00) 10*3/uL RBC (4.10-5.20) 10*6/uL Hgb (12.0-15.0) g/dL Hct (37.2-46.3) % MCV (80.0-97.0) fL MCH (27.0-32.0) pg MCHC (32.0-37.0) g/dL Plt Count (140-440) 10*3/uL MPV (9.5-12.2) fL Immature Gran % (Auto) % Neutrophils % % Lymphocytes % % Monocytes % % Eosinophils % % Basophils % % Immature Gran # (0.00-0.04) 10*3/uL Neutrophils # (1.80-7.70) 10*3/uL Lymphocytes # (0.90-5.00) 10*3/uL Monocytes # (0.20-1.00) 10*3/uL Eosinophils # (0.04-0.35) 10*3/uL Basophils # (0.00-0.10) 10*3/uL Sodium (137-145) mmol/L Potassium (3.5-5.1) mmol/L Chloride (98-107) mmol/L Carbon Dioxide (22-30) mmol/L Anion Gap mmol/L BUN (7-17) mg/dL Creatinine (0.52-1.04) mg/dL Est GFR (CKD-EPI)AfAm (>60 ml/min/1.73 sqM) Est GFR (CKD-EPI)NonAf (>60 ml/min/1.73 sqM) Glucose (74-99) mg/dL Lactic Ac Sepsis Rflx Y Plasma Lactic Acid Samuel (0.7-2.0) mmol/L Calcium (8.4-10.2) mg/dL Magnesium (1.6-2.3) mg/dL Total Bilirubin (0.2-1.3) mg/dL AST (14-36) U/L ALT (4-34) U/L Alkaline Phosphatase (38-126) U/L Total Protein (6.3-8.2) g/dL Albumin (3.5-5.0) g/dL Amylase (30-110) U/L Lipase (23-300) U/L Urine Color Colorless Urine Appearance Cloudy H (Clear) Urine pH 6.0 (5.0-8.0) Ur Specific [place] 1.006 (1.001-1.035) Urine Protein Trace H (Negative) Urine Glucose (UA) Negative (Negative) Urine Ketones Negative (Negative) Urine Blood Small H (Negative) Urine Nitrite Negative (Negative) Urine Bilirubin Negative (Negative) Urine Urobilinogen <2.0 (<2.0) mg/dL Ur Leukocyte Esterase Large H (Negative) Urine RBC 7 H (0-5) /hpf Urine WBC >182 H (0-5) /hpf Urine WBC Clumps Many H (None) /hpf Ur Squamous Epith Cells 1 (0-4) /hpf Urine Bacteria Many H (None) /hpf Urine Opiates Screen Not Detected (NotDetected) Ur Oxycodone Screen Not Detected (NotDetected) Urine Methadone Screen Not Detected (NotDetected) Ur Barbiturates Screen Not Detected (NotDetected) U Tricyclic Antidepress Not Detected (NotDetected) Ur Phencyclidine Scrn Not Detected (NotDetected) Ur Amphetamines Screen Not Detected (NotDetected) U Methamphetamines Scrn Not Detected (NotDetected) U Benzodiazepines Scrn Detected H (NotDetected) Urine Cocaine Screen Not Detected (NotDetected) U Marijuana (THC) Screen Not Detected (NotDetected) Serum Alcohol mg/dL 04/05/25 04/05/25 04/05/25 Range/Units 20:05 21:18 23:37 WBC (4.50-10.00) 10*3/uL RBC (4.10-5.20) 10*6/uL Hgb (12.0-15.0) g/dL Hct (37.2-46.3) % MCV (80.0-97.0) fL MCH (27.0-32.0) pg MCHC (32.0-37.0) g/dL Plt Count (140-440) 10*3/uL MPV (9.5-12.2) fL Immature Gran % (Auto) % Neutrophils % % Lymphocytes % % Monocytes % % Eosinophils % % Basophils % % Immature Gran # (0.00-0.04) 10*3/uL Neutrophils # (1.80-7.70) 10*3/uL Lymphocytes # (0.90-5.00) 10*3/uL Monocytes # (0.20-1.00) 10*3/uL Eosinophils # (0.04-0.35) 10*3/uL Basophils # (0.00-0.10) 10*3/uL Sodium (137-145) mmol/L Potassium (3.5-5.1) mmol/L Chloride (98-107) mmol/L Carbon Dioxide (22-30) mmol/L Anion Gap mmol/L BUN (7-17) mg/dL Creatinine (0.52-1.04) mg/dL Est GFR (CKD-EPI)AfAm (>60 ml/min/1.73 sqM) Est GFR (CKD-EPI)NonAf (>60 ml/min/1.73 sqM) Glucose (74-99) mg/dL Lactic Ac Sepsis Rflx Y Plasma Lactic Acid Samuel 2.9 H* 2.1 H* (0.7-2.0) mmol/L Calcium (8.4-10.2) mg/dL Magnesium (1.6-2.3) mg/dL Total Bilirubin (0.2-1.3) mg/dL AST (14-36) U/L ALT (4-34) U/L Alkaline Phosphatase (38-126) U/L Total Protein (6.3-8.2) g/dL Albumin (3.5-5.0) g/dL Amylase (30-110) U/L Lipase (23-300) U/L Urine Color Urine Appearance (Clear) Urine pH (5.0-8.0) Ur Specific [place] (1.001-1.035) Urine Protein (Negative) Urine Glucose (UA) (Negative) Urine Ketones (Negative) Urine Blood (Negative) Urine Nitrite (Negative) Urine Bilirubin (Negative) Urine Urobilinogen (<2.0) mg/dL Ur Leukocyte Esterase (Negative) Urine RBC (0-5) /hpf Urine WBC (0-5) /hpf Urine WBC Clumps (None) /hpf Ur Squamous Epith Cells (0-4) /hpf Urine Bacteria (None) /hpf Urine Opiates Screen (NotDetected) Ur Oxycodone Screen (NotDetected) Urine Methadone Screen (NotDetected) Ur Barbiturates Screen (NotDetected) U Tricyclic Antidepress (NotDetected) Ur Phencyclidine Scrn (NotDetected) Ur Amphetamines Screen (NotDetected) U Methamphetamines Scrn (NotDetected) U Benzodiazepines Scrn (NotDetected) Urine Cocaine Screen (NotDetected) U Marijuana (THC) Screen (NotDetected) Serum Alcohol mg/dL 04/06/25 Range/Units 00:40 WBC (4.50-10.00) 10*3/uL RBC (4.10-5.20) 10*6/uL Hgb (12.0-15.0) g/dL Hct (37.2-46.3) % MCV (80.0-97.0) fL MCH (27.0-32.0) pg MCHC (32.0-37.0) g/dL Plt Count (140-440) 10*3/uL MPV (9.5-12.2) fL Immature Gran % (Auto) % Neutrophils % % Lymphocytes % % Monocytes % % Eosinophils % % Basophils % % Immature Gran # (0.00-0.04) 10*3/uL Neutrophils # (1.80-7.70) 10*3/uL Lymphocytes # (0.90-5.00) 10*3/uL Monocytes # (0.20-1.00) 10*3/uL Eosinophils # (0.04-0.35) 10*3/uL Basophils # (0.00-0.10) 10*3/uL Sodium (137-145) mmol/L Potassium (3.5-5.1) mmol/L Chloride (98-107) mmol/L Carbon Dioxide (22-30) mmol/L Anion Gap mmol/L BUN (7-17) mg/dL Creatinine (0.52-1.04) mg/dL Est GFR (CKD-EPI)AfAm (>60 ml/min/1.73 sqM) Est GFR (CKD-EPI)NonAf (>60 ml/min/1.73 sqM) Glucose (74-99) mg/dL Lactic Ac Sepsis Rflx Y Plasma Lactic Acid Samuel (0.7-2.0) mmol/L Calcium (8.4-10.2) mg/dL Magnesium (1.6-2.3) mg/dL Total Bilirubin (0.2-1.3) mg/dL AST (14-36) U/L ALT (4-34) U/L Alkaline Phosphatase (38-126) U/L Total Protein (6.3-8.2) g/dL Albumin (3.5-5.0) g/dL Amylase (30-110) U/L Lipase (23-300) U/L Urine Color Urine Appearance (Clear) Urine pH (5.0-8.0) Ur Specific [place] (1.001-1.035) Urine Protein (Negative) Urine Glucose (UA) (Negative) Urine Ketones (Negative) Urine Blood (Negative) Urine Nitrite (Negative) Urine Bilirubin (Negative) Urine Urobilinogen (<2.0) mg/dL Ur Leukocyte Esterase (Negative) Urine RBC (0-5) /hpf Urine WBC (0-5) /hpf Urine WBC Clumps (None) /hpf Ur Squamous Epith Cells (0-4) /hpf Urine Bacteria (None) /hpf Urine Opiates Screen (NotDetected) Ur Oxycodone Screen (NotDetected) Urine Methadone Screen (NotDetected) Ur Barbiturates Screen (NotDetected) U Tricyclic Antidepress (NotDetected) Ur Phencyclidine Scrn (NotDetected) Ur Amphetamines Screen (NotDetected) U Methamphetamines Scrn (NotDetected) U Benzodiazepines Scrn (NotDetected) Urine Cocaine Screen (NotDetected) U Marijuana (THC) Screen (NotDetected) Serum Alcohol mg/dL Disposition <Lizbeth Monahan - Last Filed: 04/05/25 16:44> Is patient prescribed a controlled substance at d/c from ED?: No Time of Disposition: 22:23 <Jose Hdez - Last Filed: 04/10/25 12:31> Clinical Impression: UTI (urinary tract infection), Lactic acidosis, ETOH abuse Disposition: HOME SELF-CARE Condition: Fair Instructions (If sedation given, give patient instructions): Urinary Tract Infection in Women (ED) Additional Instructions: Increase water, Pedialyte/Gatorade and cranberry juice intake. Yaritza tea/joon for nausea. Increase intake of bananas, rice, applesauce, tea, toast. Follow- up with PCP in the next 24-48 hours. Prescriptions: Ciprofloxacin HCl [Cipro] 500 mg PO Q12HR #20 tablet Referrals: Aileen Torres MD [Primary Care Provider] - 1-2 days
[2025-04-05] MEDS: SODIUM CHLORIDE 0.9% 1,000 ML IV ONE ×2 (15:21→18:43)
[2025-04-05] MEDS: KETOROLAC 15 MG/ML 1 ML VIAL IVP STA ×3 (15:22→21:45)
[2025-04-05] MEDS: ONDANSETRON 4 MG/2 ML VIAL IVP STA ×2 (15:22→21:44)
[2025-04-05] MEDS: DICYCLOMINE 10 MG/ML 2 ML AMP IM STA (15:23)
[2025-04-05 16:08] LABS: Basophils # (A) 0.12 10*3/uL (0.00-0.10); Basophils % (A) 1.1 %; Eosinophils # (A) 0.14 10*3/uL (0.04-0.35); Eosinophils % (A) 1.3 %; HCT 42.6 % (37.2-46.3); HGB 15.5 g/dL (12.0-15.0); Lymphocytes # (A) 3.25 10*3/uL (0.90-5.00); Lymphocytes % (A) 30.4 %; MCH 33.5 pg (27.0-32.0); MCHC 36.4 g/dL (32.0-37.0); MCV 92.2 fL (80.0-97.0); Monocytes # (A) 0.76 10*3/uL (0.20-1.00); Monocytes % (A) 7.1 %; Neutrophils # (A) 6.38 10*3/uL (1.80-7.70); Neutrophils % (A) 59.6 %; Platelet Count 189 10*3/uL (140-440); RBC 4.62 10*6/uL (4.10-5.20); RDW 13.2 % (11.5-14.5); WBC 10.70 10*3/uL (4.50-10.00)
[2025-04-05 16:28] LABS: ALT 34 U/L (4-34); AST 42 U/L (14-36); African American GFR (CKD) >90 (>60 ml/min/1.73 sqM); Albumin 5.0 g/dL (3.5-5.0); Alkaline Phosphatase 82 U/L (38-126); Amylase 54 U/L (30-110); Anion Gap 20 mmol/L; Calcium 9.4 mg/dL (8.4-10.2); Carbon Dioxide 17 mmol/L (22-30); Chloride 100 mmol/L (98-107); Glucose 94 mg/dL (74-99); Lipase 81 U/L (23-300); Magnesium 1.8 mg/dL (1.6-2.3); Non-African American GFR(CKD) >90 (>60 ml/min/1.73 sqM); Potassium 4.1 mmol/L (3.5-5.1); Sodium 137 mmol/L (137-145); Total Protein 8.0 g/dL (6.3-8.2)
--- NOTE | 2025-04-05 16:29 | XR ---
EXAMINATION TYPE: XR KUB DATE OF EXAM: 04/05/2025 4:04 PM COMPARISON: 11/26/2023 CLINICAL INDICATION: Female, 65 years old with history of abdominal pain, TECHNIQUE: XR KUB view(s) obtained. FINDINGS: There is a normal bowel gas pattern. No free air is under the diaphragm. Psoas margins are normal. No organomegaly is present. IMPRESSION: 1. [facility], , 04/05/2025 4:26 PM
[2025-04-05 17:03] LABS: Blood Urea Nitrogen <2 mg/dL (7-17)
[2025-04-05 18:48] LABS: Bacteria,Urine Many /hpf; Bilirubin,Urine Negative (Negative); Blood,Urine Small (Negative); Color,Urine Colorless; Glucose,Urine (UA) Negative (Negative); Ketones,Urine Negative (Negative); Leukocyte Esterase,Urine Large (Negative); Nitrite,Urine Negative (Negative); PH, Urine 6.0 (5.0-8.0); Protein,Urine Trace (Negative); RBC,Urine 7 /hpf (0-5); Specific Gravity,Urine 1.006 (1.001-1.035); Squamous Epithelial Cell,Urine 1 /hpf (0-4); Urobilinogen,Urine <2.0 mg/dL (<2.0); WBC,Urine >182 /hpf (0-5)
[2025-04-05 19:00] LABS: Barbiturate Screen,Urine Not Detected (NotDetected); Benzodiazepines Screen,Urine Detected (NotDetected); Opiate Screen,Urine Not Detected (NotDetected); Oxycodone Screen, Urine Not Detected (NotDetected); Phencyclidine Screen,Urine Not Detected (NotDetected); Tricyclic Antidepressant,Urine Not Detected (NotDetected); Urn Cannabinoid Scrn Not Detected (NotDetected)
[2025-04-05] MEDS: CIPROFLOXACIN HCL 500 MG TAB PO STA (21:05)
[2025-04-05 21:10] VITALS: RESP 16
[2025-04-05] MEDS: ONDANSETRON 4 MG ODT STARTER PACK TAB BTL PO STA (21:46)
[2025-04-05] MEDS: SODIUM CHLORIDE 0.9% 1,000 ML IV STA (22:00)
[2025-04-05 23:35] VITALS: BP 151/88; PULSE 84
[2025-04-06] MEDS: LORazepam 1 MG/0.5 ML VIAL IV STA (00:17)
== END 2025-04-06 01:30 | disposition home or self-care (01) ==
LOC: EC 14:10
DX: N39.0 Urinary tract infection, site not specified (principal); E87.20 Acidosis, unspecified; F10.129 Alcohol abuse with intoxication, unspecified; Z91.013 Allergy to seafood; Z88.2 Allergy status to sulfonamides; Z88.8 Allergy status to other drugs, medicaments and biological substances
CPT/HCPCS: 36415 ×2; 93005; 80053; 82150; 83605; 83690; 83735; 85025; 81001; 80306; 80320; 87086; 87077; 87186; 74018; 99285; 96365; 96366; 96372; 96376 ×3; 96361 ×2; 96375 ×2; J2060; J0500; J2405; J0696; J1885; S0119

== ENCOUNTER 2025-04-09 19:32 | Emergency (ER) | payer BC, OTHER ==
[2025-04-09 19:37] VITALS: TEMP 98.5
--- NOTE | 2025-04-09 20:00 | ED ---
Nausea/Vomiting/Diarrhea HPI - General Source: patient, EMS, RN notes reviewed Mode of arrival: EMS Limitations: no limitations <Consuelo Ordonez - Last Filed: 04/09/25 19:59> <Raphael Chacon - Last Filed: 04/10/25 05:31> - General Chief complaint: Nausea/Vomiting/Diarrhea Stated complaint: Weakness Time Seen by Provider: 04/09/25 19:59 - History of Present Illness Initial comments: Quick note: 65-year-old female presented to ER for evaluation of abdominal pain. She admits to nausea and vomiting. Denies fevers. (Consuelo Ordonez) 65-year-old female presenting with alcohol intoxication and associated nausea vomiting. Patient is a daily drinker. She denies fever. Denies abdominal pain. Patient admits to heavy alcohol consumption. She denies chest pain. States she has attempted sobriety in the past and has also gone to rehab. (Raphael Chacon) - Related Data Home Medications Medication Instructions Recorded Confirmed minoxidiL [Loniten] 2.5 mg PO DAILY 11/09/24 04/04/25 Previous Rx's Medication Instructions Recorded Ciprofloxacin HCl [Cipro] 500 mg PO Q12HR #20 tablet 04/05/25 Allergies Allergy/AdvReac Type Severity Reaction Status Date / Time shellfish derived [Shellfish] Allergy Severe Dyspnea Verified 04/09/25 19:36 iodine Allergy Rash/Hives Verified 04/09/25 19:36 Sulfa (Sulfonamide Allergy Rash/Hives Verified 04/09/25 19:36 Antibiotics) Review of Systems ROS Other: All systems not noted in ROS Statement are negative. <Consuelo Ordonez - Last Filed: 04/09/25 19:59> ROS Other: All systems not noted in ROS Statement are negative. <Raphael Chacon - Last Filed: 04/10/25 05:31> ROS Statement: Those systems with pertinent positive or pertinent negative responses have been documented in the HPI. 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 History of Any Multi-Drug Resistant Organisms: None Reported Past Surgical History: AICD, Back Surgery Additional Past Surgical History / Comment(s): Cervical surgery at [facility] d/t injury, colonoscopies/benign polypectomy Past Anesthesia/Blood Transfusion Reactions: No Reported Reaction, Motion Sickness Additional Past Anesthesia/Blood Transfusion Reaction / Comment(s): PT has clausterphobia. Type of Cardiac Device: AICD Device Placement Date:: unknown Past Psychological History: Anxiety Smoking Status: Current every day smoker Past Alcohol Use History: Daily, Heavy Past Drug Use History: None Reported - Past Family History Mother Family Medical History: Cancer Additional Family Medical History / Comment(s): Mother of melanoma Father Family Medical History: No Reported History Additional Family Medical History / Comment(s): Father is healthy <Consuelo Ordonez - Last Filed: 04/09/25 19:59> General Exam Limitations: no limitations <Consuelo Ordonez - Last Filed: 04/09/25 19:59> General appearance: alert, appears intoxicated Head exam: Present: atraumatic, normocephalic Eye exam: Present: normal appearance, PERRL ENT exam: Present: mucous membranes dry Neck exam: Present: normal inspection. Absent: tenderness, meningismus Respiratory exam: Present: normal lung sounds bilaterally. Absent: respiratory distress, wheezes Cardiovascular Exam: Present: regular rate, normal rhythm GI/Abdominal exam: Present: soft. Absent: distended, tenderness, guarding <Raphael Chacon - Last Filed: 04/10/25 05:31> - General Exam Comments Initial Comments: Visual Physical Exam Vital signs reviewed General: unkept, nontoxic, no acute distress. Smells of alcohol Head: Normocephalic, atraumatic Eyes: PERRLA, EOMI ENT: Airway patent Chest: Nonlabored breathing Skin: No visual rash, normal skin tone Neuro: Alert and oriented 3 Musculoskeletal: No gross abnormalities (Consuelo Ordonez) Course Vital Signs 04/09/25 04/10/25 19:33 01:05 Temperature 98.5 F Pulse Rate 94 83 Respiratory 18 18 Rate Blood Pressure 112/75 176/75 O2 Sat by Pulse 97 98 Oximetry Medical Decision Making <Consuelo Ordonez - Last Filed: 04/09/25 19:59> - Lab Data Result diagrams: 04/09/25 21:37 04/09/25 21:37 <Raphael Chacon - Last Filed: 04/10/25 05:31> - Medical Decision Making I performed the quick note portion of this chart. Electronically signed by Consuelo Ordonez PA-C (Consuelo Ordonez) Was pt. sent in by a medical professional or institution ([facility], AGRICULTURAL SALES REPRESENTATIVE, urgent care, hospital, or custodial...) When possible be specific @ -No Did you speak to anyone other than the patient for history (EMS, parent, family, police, friend...)? What history was obtained from this source @ -No Did you review nursing and triage notes (agree or disagree)? Why? @ -I reviewed and agree with nursing and triage notes Were old charts reviewed (outside hosp., previous admission, EMS record, old EKG, old radiological studies, urgent care reports/EKG's, custodial records)? Report findings @ -No old charts were reviewed Differential Weakness: Hypoglycemia, shock, sepsis, hyponatremia, anemia, infection, [place], ETOH, adverse medicine reaction, overdose, stroke, this is not meant to be an all-inclusive list. EKG interpreted by me (3pts min.). @ -As above X-rays interpreted by me (1pt min.). @ -None done CT interpreted by me (1pt min.). @ -None done U/S interpreted by me (1pt. min.). @ -None done What testing was considered but not performed or refused? (CT, X-rays, U/S, labs)? Why? @ -None What meds were considered but not given or refused? Why? @ -None Did you discuss the management of the patient with other professionals (professionals i.e. [facility], AGRICULTURAL SALES REPRESENTATIVE, lab, RT, psych nurse, aids social worker, sleeve presser operator, teacher, house officer, case liner)? Give summary @ -No Was smoking cessation discussed for >3mins.? @ -No Was critical care preformed (if so, how long)? @ -No Were there social determinants of health that impacted care today? How? (Homelessness, low income, unemployed, alcoholism, drug addiction, transpo rtation, low edu. Level, literacy, decrease access to med. care, residential, rehab)? @ -No Was there de-escalation of care discussed even if they declined (Discuss DNR or withdrawal of care, Hospice)? DNR status @ -No What co-morbidities impacted this encounter? (DM, HTN, Smoking, COPD, CAD, Cancer, CVA, ARF, Chemo, Hep., AIDS, mental health diagnosis, sleep apnea, morbid obesity)? @ -Alcohol abuse Was patient admitted / discharged? Hospital course, mention meds given and route, prescriptions, significant lab abnormalities, going to OR and other pertinent info. @ -65-year-old female with alcohol intoxication. Patient is observed in the emergency department until sober. Laboratory testing reveals abnormalities associated with alcohol intoxication. Given [place] for pain and Zofran for nausea. Stable for discharge at this time. Undiagnosed new problem with uncertain prognosis? @ -No Drug Therapy requiring intensive monitoring for toxicity (Heparin, Nitro, Insulin, Cardizem)? @ -No Were any procedures done? @ -No Diagnosis/symptom? @ -[Alcohol intoxication Acute, or Chronic, or Acute on Chronic? @ -Acute Uncomplicated (without systemic symptoms) or Complicated (systemic symptoms)? @ -Complicated Side effects of treatment? @ -No Exacerbation, Progression, or Severe Exacerbation? @ -No Poses a threat to life or bodily function? How? (Chest pain, [place], [place], pneumonia, PE, COPD, DKA, ARF, appy, cholecystitis, CVA, Diverticulitis, Homicidal, Suicidal, threat to staff... and all critical care pts) @ -No (Raphael Chacon) - Lab Data Lab Results 04/09/25 04/09/25 04/09/25 Range/Units 21:37 21:37 21:37 WBC 9.32 (4.50-10.00) 10*3/uL RBC 5.11 (4.10-5.20) 10*6/uL Hgb 16.9 H (12.0-15.0) g/dL Hct 47.8 H (37.2-46.3) % MCV 93.5 (80.0-97.0) fL MCH 33.1 H (27.0-32.0) pg MCHC 35.4 (32.0-37.0) g/dL Plt Count 173 (140-440) 10*3/uL MPV 8.8 L (9.5-12.2) fL Immature Gran % (Auto) 0.5 % Neutrophils % 58.3 % Lymphocytes % 32.8 % Monocytes % 6.5 % Eosinophils % 0.5 % Basophils % 1.4 % Immature Gran # 0.05 H (0.00-0.04) 10*3/uL Neutrophils # 5.42 (1.80-7.70) 10*3/uL Lymphocytes # 3.06 (0.90-5.00) 10*3/uL Monocytes # 0.61 (0.20-1.00) 10*3/uL Eosinophils # 0.05 (0.04-0.35) 10*3/uL Basophils # 0.13 H (0.00-0.10) 10*3/uL Sodium 136 L (137-145) mmol/L Potassium 4.7 (3.5-5.1) mmol/L Chloride 99 (98-107) mmol/L Carbon Dioxide 13 L (22-30) mmol/L Anion Gap 24 mmol/L BUN 12 (7-17) mg/dL Creatinine 0.56 (0.52-1.04) mg/dL Est GFR (CKD-EPI)AfAm >90 (>60 ml/min/1.73 sqM) Est GFR (CKD-EPI)NonAf >90 (>60 ml/min/1.73 sqM) Glucose 71 L (74-99) mg/dL Plasma Lactic Acid Samuel 2.0 (0.7-2.0) mmol/L Calcium 8.6 (8.4-10.2) mg/dL Total Bilirubin 0.9 (0.2-1.3) mg/dL AST 128 H (14-36) U/L ALT 72 H (4-34) U/L Alkaline Phosphatase 83 (38-126) U/L Total Protein 8.4 H (6.3-8.2) g/dL Albumin 5.4 H (3.5-5.0) g/dL Amylase 59 (30-110) U/L Lipase 82 (23-300) U/L Serum Alcohol 258 H* mg/dL Disposition <Consuelo Ordonez - Last Filed: 04/09/25 19:59> Is patient prescribed a controlled substance at d/c from ED?: No Time of Disposition: 05:31 <Raphael Chacon - Last Filed: 04/10/25 05:31> Clinical Impression: Alcohol intoxication Disposition: HOME SELF-CARE Condition: Fair Instructions (If sedation given, give patient instructions): Acute Nausea and Vomiting (ED) Referrals: Aileen Torres MD [Primary Care Provider] - 1-2 days
[2025-04-09 21:47] LABS: Basophils # (A) 0.13 10*3/uL (0.00-0.10); Basophils % (A) 1.4 %; Eosinophils # (A) 0.05 10*3/uL (0.04-0.35); Eosinophils % (A) 0.5 %; HCT 47.8 % (37.2-46.3); HGB 16.9 g/dL (12.0-15.0); Lymphocytes # (A) 3.06 10*3/uL (0.90-5.00); Lymphocytes % (A) 32.8 %; MCH 33.1 pg (27.0-32.0); MCHC 35.4 g/dL (32.0-37.0); MCV 93.5 fL (80.0-97.0); Monocytes # (A) 0.61 10*3/uL (0.20-1.00); Monocytes % (A) 6.5 %; Neutrophils # (A) 5.42 10*3/uL (1.80-7.70); Neutrophils % (A) 58.3 %; Platelet Count 173 10*3/uL (140-440); RBC 5.11 10*6/uL (4.10-5.20); RDW 13.4 % (11.5-14.5); WBC 9.32 10*3/uL (4.50-10.00)
[2025-04-09 22:00] LABS: ALT 72 U/L (4-34); AST 128 U/L (14-36); African American GFR (CKD) >90 (>60 ml/min/1.73 sqM); Albumin 5.4 g/dL (3.5-5.0); Alkaline Phosphatase 83 U/L (38-126); Amylase 59 U/L (30-110); Anion Gap 24 mmol/L; Blood Urea Nitrogen 12 mg/dL (7-17); Calcium 8.6 mg/dL (8.4-10.2); Carbon Dioxide 13 mmol/L (22-30); Chloride 99 mmol/L (98-107); Glucose 71 mg/dL (74-99); Lipase 82 U/L (23-300); Non-African American GFR(CKD) >90 (>60 ml/min/1.73 sqM); Potassium 4.7 mmol/L (3.5-5.1); Sodium 136 mmol/L (137-145); Total Protein 8.4 g/dL (6.3-8.2)
[2025-04-10] MEDS: HYDROcodone/APAP 5-325MG 1 EACH TAB PO STA (05:40)
[2025-04-10] MEDS: ONDANSETRON ODT 4 MG TAB PO STA (05:42)
[2025-04-10 05:51] VITALS: BP 127/74; PULSE 98; RESP 17
== END 2025-04-10 05:51 | disposition home or self-care (01) ==
LOC: EC 19:32
DX: F10.129 Alcohol abuse with intoxication, unspecified (principal); F17.200 Nicotine dependence, unspecified, uncomplicated; Z91.013 Allergy to seafood; Z88.2 Allergy status to sulfonamides; Z88.8 Allergy status to other drugs, medicaments and biological substances; Y90.8 Blood alcohol level of 240 mg/100 ml or more
CPT/HCPCS: 36415; 80053; 80320; 82150; 83605; 83690; 85025; 99285